=== PATIENT | male | born 1965 | race Caucasian/White ===

== ENCOUNTER → 2016-09-25 | Emergency (ER) | payer MEDICARE, MEDICAID ==
[2012-11-04 09:24] VITALS: BMI 24.2
[~2016-09-25] MED LIST: BENADRYL25 M1 PO; EPITOL200 MG PO; LIBRIUM25 MG PO; MAGOX; PRILOSEC20 MG PO; TEGRETOL XR100 MG PO; TRIFLUOPERAZINE10 MG PO
== END | disposition home or self-care (01) ==
LOC: D.ER 11:09
DX: Z02.9 Encounter for administrative examinations, unspecified (principal)

== ENCOUNTER 2017-01-14 06:20 | Emergency (ER) | payer MEDICARE, MEDICAID ==
[2012-11-04 09:24] VITALS: BMI 24.2
[2017-01-14 06:51] LABS: BASOPHILS 0.9 % (0-2); HEMATOCRIT 36.5 % (42.0-54.0); HEMOGLOBIN 13.3 g/dL (13.5-17.5); IMMATURE GRANULOCYTES 0.3 % (0-5); LYMPHOCYTES 37.2 % (15-50); MCH 34.1 pg (26.0-34.0); MCHC 36.4 g/dL (31.0-37.0); MCV 93.6 fL (80.0-100.0); MEAN PLATELET VOLUME 8.8 fL (7.4-10.4); NEUTROPHILS 47.6 % (40-80); PLATELET COUNT 112 10x3/uL (130-400); RDW 17.6 % (11.5-14.5); WBC 3.5 10x3/uL (4.8-10.8)
[2017-01-14 07:15] LABS: ALBUMIN 3.5 g/dL (3.4-5.0); ANION GAP 16.8 mmol/L (8-16); BILIRUBIN - TOTAL 0.46 mg/dL (0.2-1.3); CALCIUM 8.4 mg/dL (8.5-10.1); CARBON DIOXIDE 22.5 mmol/L (21.0-32.0); CREATININE - SERUM 1.5 mg/dL (0.6-1.3); POTASSIUM - SERUM 3.3 mmol/L (3.5-5.1); PROTEIN - SERUM 7.1 g/dL (6.4-8.2)
[2017-01-14 07:55] LABS: APPEARANCE CLEAR (CLEAR); BACTERIA FEW /hpf (NONE SEEN); BILIRUBIN NEGATIVE (NEGATIVE); COLOR STRAW (YELLOW); EPITHELIAL CELLS RARE /hpf (0-5); GLUCOSE NEGATIVE (NEGATIVE); KETONE NEGATIVE (NEGATIVE); LEUKOCYTE ESTERASE TRACE (NEGATIVE); NITRITE NEGATIVE (NEGATIVE); PROTEIN NEGATIVE (NEGATIVE); UROBILINOGEN NORMAL (NORMAL); WHITE CELLS - URINE RARE /hpf (0-5)
== END 2017-01-14 14:18 | disposition home or self-care (01) ==
LOC: D.ER 06:20
PROVIDERS: Emergency Medicine
DX: R10.9 Unspecified abdominal pain (principal); R11.10 Vomiting, unspecified; R19.7 Diarrhea, unspecified; B19.20 Unspecified viral hepatitis C without hepatic coma

== ENCOUNTER 2017-02-04 07:03 | Emergency (ER) | payer MEDICARE, MEDICAID ==
[2012-11-04 09:24] VITALS: BMI 24.2
[2017-02-04 08:42] LABS: BASOPHILS 1.1 % (0-2); EOSINOPHILS 7.5 % (0-7); HEMATOCRIT 34.7 % (42.0-54.0); HEMOGLOBIN 12.1 g/dL (13.5-17.5); IMMATURE GRANULOCYTES 0.4 % (0-5); LYMPHOCYTES 29.2 % (15-50); MCH 34.8 pg (26.0-34.0); MCHC 34.9 g/dL (31.0-37.0); MCV 99.7 fL (80.0-100.0); MEAN PLATELET VOLUME 9.2 fL (7.4-10.4); MONOCYTES 13.5 % (2-11); NEUTROPHILS 48.3 % (40-80); PLATELET COUNT 106 10x3/uL (130-400); RBC 3.48 10x6/uL (4.20-6.10); RDW 18.5 % (11.5-14.5); WBC 2.8 10x3/uL (4.8-10.8)
[2017-02-04 08:50] LABS: APPEARANCE HAZY (CLEAR); BACTERIA FEW /hpf (NONE SEEN); BILIRUBIN NEGATIVE (NEGATIVE); COLOR YELLOW (YELLOW); EPITHELIAL CELLS 0-5 /hpf (0-5); GLUCOSE NEGATIVE (NEGATIVE); KETONE NEGATIVE (NEGATIVE); LEUKOCYTE ESTERASE TRACE (NEGATIVE); MUCUS >1+ /lpf (NONE SEEN); NITRITE NEGATIVE (NEGATIVE); PROTEIN NEGATIVE (NEGATIVE); SPECIFIC GRAVITY 1.015 (1.005-1.020); UROBILINOGEN NORMAL (NORMAL); WHITE CELLS - URINE 0-5 /hpf (0-5)
[2017-02-04 09:18] LABS: ALBUMIN 3.9 g/dL (3.4-5.0); ANION GAP 11.4 mmol/L (8-16); BILIRUBIN - TOTAL 0.8 mg/dL (0.2-1.3); CALCIUM 8.5 mg/dL (8.5-10.1); CARBON DIOXIDE 26.4 mmol/L (21.0-32.0); CREATININE - SERUM 1.2 mg/dL (0.6-1.3); POTASSIUM - SERUM 3.8 mmol/L (3.5-5.1); PROTEIN - SERUM 6.7 g/dL (6.4-8.2)
== END 2017-02-04 07:06 | disposition home or self-care (01) ==
LOC: D.ER 07:03
PROVIDERS: Family Medicine
DX: R31.9 Hematuria, unspecified (principal); R10.9 Unspecified abdominal pain; D64.9 Anemia, unspecified; B19.20 Unspecified viral hepatitis C without hepatic coma

== ENCOUNTER 2017-03-05 02:30 | Emergency (ER) | payer MEDICARE, MEDICAID ==
[2012-11-04 09:24] VITALS: BMI 24.2
[2017-03-05 03:05] LABS: APPEARANCE CLEAR (CLEAR); BILIRUBIN NEGATIVE (NEGATIVE); COLOR YELLOW (YELLOW); GLUCOSE NEGATIVE (NEGATIVE); KETONE NEGATIVE (NEGATIVE); NITRITE NEGATIVE (NEGATIVE); PROTEIN NEGATIVE (NEGATIVE); UROBILINOGEN NORMAL (NORMAL)
[2017-03-05 04:31] LABS: EOSINOPHILS 6.6 % (0-7); HEMATOCRIT 31.8 % (42.0-54.0); HEMOGLOBIN 11.4 g/dL (13.5-17.5); IMMATURE GRANULOCYTES 0.5 % (0-5); LYMPHOCYTES 39.6 % (15-50); MCH 36.4 pg (26.0-34.0); MCHC 35.8 g/dL (31.0-37.0); MCV 101.6 fL (80.0-100.0); MEAN PLATELET VOLUME 9.9 fL (7.4-10.4); NEUTROPHILS 41.3 % (40-80); RBC 3.13 10x6/uL (4.20-6.10); RDW 17.7 % (11.5-14.5); WBC 3.9 10x3/uL (4.8-10.8)
[2017-03-05 04:32] LABS: PLATELET COUNT 149 10x3/uL (130-400)
[2017-03-05 04:37] LABS: ALBUMIN 3.5 g/dL (3.4-5.0); ANION GAP 13.6 mmol/L (8-16); BILIRUBIN - TOTAL 0.45 mg/dL (0.2-1.3); CALCIUM 8.8 mg/dL (8.5-10.1); CARBON DIOXIDE 22.4 mmol/L (21.0-32.0); CREATININE - SERUM 1.4 mg/dL (0.6-1.3); PROTEIN - SERUM 6.8 g/dL (6.4-8.2)
[2017-03-06 11:11] LABS: FOLATE (FOLIC ACID) - SERUM <2.0 ng/mL (>3.0)
== END 2017-03-05 08:35 | disposition home or self-care (01) ==
LOC: D.ER 02:30
PROVIDERS: Emergency Medicine
DX: R11.2 Nausea with vomiting, unspecified (principal); D53.9 Nutritional anemia, unspecified; K52.9 Noninfective gastroenteritis and colitis, unspecified

== ENCOUNTER 2017-04-01 05:40 | Emergency (ER) | payer MEDICARE, MEDICAID ==
[2012-11-04 09:24] VITALS: BMI 24.2
[2017-04-01 06:22] LABS: BASOPHILS 0.5 % (0-2); EOSINOPHILS 6.4 % (0-7); HEMATOCRIT 36.7 % (42.0-54.0); HEMOGLOBIN 12.9 g/dL (13.5-17.5); IMMATURE GRANULOCYTES 0.3 % (0-5); LYMPHOCYTES 38.6 % (15-50); MCH 34.9 pg (26.0-34.0); MCHC 35.1 g/dL (31.0-37.0); MCV 99.2 fL (80.0-100.0); MEAN PLATELET VOLUME 10.7 fL (7.4-10.4); MONOCYTES 11.7 % (2-11); NEUTROPHILS 42.5 % (40-80); PLATELET COUNT 129 10x3/uL (130-400); RDW 14.6 % (11.5-14.5); WBC 3.8 10x3/uL (4.8-10.8)
[2017-04-01 07:21] LABS: ALBUMIN 3.3 g/dL (3.4-5.0); ANION GAP 16.2 mmol/L (8-16); BILIRUBIN - TOTAL 0.4 mg/dL (0.2-1.3); CALCIUM 8.5 mg/dL (8.5-10.1); CARBON DIOXIDE 21.2 mmol/L (21.0-32.0); CREATININE - SERUM 1.3 mg/dL (0.6-1.3); POTASSIUM - SERUM 3.4 mmol/L (3.5-5.1); PROTEIN - SERUM 6.6 g/dL (6.4-8.2)
== END 2017-04-01 10:09 | disposition home or self-care (01) ==
LOC: D.ER 05:40
PROVIDERS: Emergency Medicine
DX: R11.10 Vomiting, unspecified (principal); R19.7 Diarrhea, unspecified; R86.0 Abnormal level of enzymes in specimens from male genital organs; D61.818 Other pancytopenia; B19.20 Unspecified viral hepatitis C without hepatic coma

== ENCOUNTER 2017-04-11 11:36 | Emergency (ER) | payer MEDICARE, MEDICAID ==
[2012-11-04 09:24] VITALS: BMI 24.2
[2017-04-11 12:12] LABS: EOSINOPHILS 3.8 % (0-7); HEMATOCRIT 36.1 % (42.0-54.0); HEMOGLOBIN 12.8 g/dL (13.5-17.5); IMMATURE GRANULOCYTES 0.3 % (0-5); LYMPHOCYTES 31.7 % (15-50); MCH 34.5 pg (26.0-34.0); MCHC 35.5 g/dL (31.0-37.0); MCV 97.3 fL (80.0-100.0); MEAN PLATELET VOLUME 10.4 fL (7.4-10.4); MONOCYTES 8.5 % (2-11); NEUTROPHILS 54.7 % (40-80); PLATELET COUNT 140 10x3/uL (130-400); RBC 3.71 10x6/uL (4.20-6.10); RDW 14.2 % (11.5-14.5)
[2017-04-11 12:34] LABS: APPEARANCE CLEAR (CLEAR); BILIRUBIN NEGATIVE (NEGATIVE); COLOR YELLOW (YELLOW); GLUCOSE NEGATIVE (NEGATIVE); KETONE NEGATIVE (NEGATIVE); NITRITE NEGATIVE (NEGATIVE); PROTEIN NEGATIVE (NEGATIVE); UROBILINOGEN NORMAL (NORMAL)
[2017-04-11 12:38] LABS: ALBUMIN 3.6 g/dL (3.4-5.0); ANION GAP 16.6 mmol/L (8-16); BILIRUBIN - TOTAL 0.31 mg/dL (0.2-1.3); CALCIUM 8.6 mg/dL (8.5-10.1); CARBON DIOXIDE 20.1 mmol/L (21.0-32.0); CREATININE - SERUM 1.3 mg/dL (0.6-1.3); POTASSIUM - SERUM 3.7 mmol/L (3.5-5.1)
== END 2017-04-11 14:01 | disposition home or self-care (01) ==
LOC: D.ER 11:36
PROVIDERS: Emergency Medicine; Nurse Practitioner Family
DX: R10.9 Unspecified abdominal pain (principal); K21.9 Gastro-esophageal reflux disease without esophagitis

== ENCOUNTER 2017-09-10 06:29 | Emergency (ER) | payer MEDICARE, MEDICAID ==
[2012-11-04 09:24] VITALS: BMI 24.2
[2017-09-10 06:59] LABS: BASOPHILS 0.9 % (0-2); EOSINOPHILS 5.6 % (0-7); HEMATOCRIT 40.4 % (42.0-54.0); HEMOGLOBIN 14.6 g/dL (13.5-17.5); IMMATURE GRANULOCYTES 0.2 % (0-5); LYMPHOCYTES 37.1 % (15-50); MCH 31.8 pg (26.0-34.0); MCHC 36.1 g/dL (31.0-37.0); MEAN PLATELET VOLUME 10.5 fL (7.4-10.4); MONOCYTES 8.9 % (2-11); NEUTROPHILS 47.3 % (40-80); PLATELET COUNT 124 10x3/uL (130-400); RBC 4.59 10x6/uL (4.20-6.10); RDW 14.3 % (11.5-14.5); WBC 4.3 10x3/uL (4.8-10.8)
[2017-09-10 07:04] LABS: APPEARANCE CLEAR (CLEAR); COLOR YELLOW (YELLOW); SPECIFIC GRAVITY 1.015 (1.005-1.020)
[2017-09-10 07:05] LABS: BACTERIA FEW /hpf (NONE SEEN); BILIRUBIN NEGATIVE (NEGATIVE); EPITHELIAL CELLS OCC /hpf (0-5); GLUCOSE NEGATIVE (NEGATIVE); KETONE NEGATIVE (NEGATIVE); MUCUS <1+ /lpf (NONE SEEN); NITRITE NEGATIVE (NEGATIVE); PROTEIN NEGATIVE (NEGATIVE); RED CELLS - URINE RARE /hpf (0-5); UROBILINOGEN NORMAL (NORMAL); WHITE CELLS - URINE 0-5 /hpf (0-5)
[2017-09-10 07:14] LABS: ALBUMIN 3.8 g/dL (3.4-5.0); ANION GAP 19.3 mmol/L (8-16); BILIRUBIN - TOTAL 0.6 mg/dL (0.2-1.3); CALCIUM 8.8 mg/dL (8.5-10.1); CARBON DIOXIDE 16.3 mmol/L (21.0-32.0); CREATININE - SERUM 1.5 mg/dL (0.6-1.3); POTASSIUM - SERUM 3.6 mmol/L (3.5-5.1); PROTEIN - SERUM 7.5 g/dL (6.4-8.2)
== END 2017-09-10 14:01 | disposition home or self-care (01) ==
LOC: D.ER 06:29
PROVIDERS: Emergency Medicine
DX: R10.9 Unspecified abdominal pain (principal); K21.9 Gastro-esophageal reflux disease without esophagitis; B19.20 Unspecified viral hepatitis C without hepatic coma

== ENCOUNTER 2017-10-08 03:41 | Observation (INO) | payer MEDICARE, MEDICAID ==
[~2017-10-08] VITALS: Ht 182.9 cm; Wt 102.1 kg
--- NOTE | ~2017-10-08 | HP ---
PATIENT: KENNY JONES MEDICAL RECORD: [id number] ACCOUNT: [id number] LOCATION:[address] : 67 ADMISSION DATE: 10/08/17 HISTORY AND PHYSICAL EXAMINATION HISTORY OF PRESENT ILLNESS: A 52-year-old gentleman with no known history of coronary artery disease. He has a history of hyperlipidemia, bipolar disorder, hep C. He has been having intermittent chest pain over the past 2-3 weeks, episode of rest symptomology, pressure, tightness, radiating to jaw, with diaphoresis, some nausea. We are asked to see him concerning his cardiovascular status. PAST MEDICAL HISTORY: 1. History of bipolar disorder. 2. Gastroesophageal reflux disease. ALLERGIES: None known. SOCIAL HISTORY: He is a nonsmoker. No set exercise program. He takes care of all of his ADLs. REVIEW OF SYSTEMS: The patient reports easy bruising but reports no swollen glands. The patient reports no fever, no night sweats, no significant weight gain, no significant weight loss. No significant exercise tolerance. The patient reports no dry eyes, no irritation, no vision change. Patient reports no difficulty hearing and no ear pain. Patient reports no frequent nose bleeds or nose and sinus problems. Patient reports on arm pain on exertion. No shortness of breath while lying down. No history of heart murmur. Patient reports no cough, no wheezing or coughing up blood. Patient reports no abdominal pain, no vomiting. Normal appetite. No diarrhea and not vomiting blood. No nausea and no constipation. Patient reports no incontinence. No difficulty urinating. No hematuria. No increased frequency. Patient reports no muscle aches. No weakness, no arthralgias, no back pain. No swelling of the extremities. Patient reports no abnormal mole, no jaundice, no rashes. Reports no loss of consciousness. No weakness and no numbness. No seizures, dizziness, or headaches. The patient reports no depression, no sleep disturbance, feeling safe in a relationship and no alcohol abuse. Patient reports on fatigue. Reports no runny nose or sinus pressure. No itching, no hives, and no frequent sneezing. MEDICATIONS: Include Librium 25 q.i.d., Tegretol 100 q.12, Epitol 200 t.i.d., Stelazine 10 b.i.d. PHYSICAL EXAMINATION: GENERAL: Pleasant gentleman in no acute distress, appears stated age. VITAL SIGNS: Blood pressure 115/77, pulse 61 and regular. HEENT: Normocephalic, atraumatic. NECK: No JVD or bruit. HEART: Regular. LUNGS: Banuelos clear. ABDOMEN: Soft, nontender. EXTREMITIES: Pulses 2+ with no edema. DIAGNOSTIC DATA: ECG without acute change. HISTORY AND PHYSICAL [id number] KENNY JONES IMPRESSION: Acute coronary syndrome. We will plan for diagnostic angiography, intervention based on the above. TRANSINT:[id number] Voice Confirmation ID: [id number] DOCUMENT ID: [id number] SHAHNAZ NGUYEN MD at 0826 CC: [id number] DICTATION DATE: 10/08/17809 HOME ECONOMIST: 10/08/17 0946 DIS IN 10/09/17 [place] [address] [place] [address]
--- NOTE | ~2017-10-08 | OP ---
PATIENT NAME: KENNY JONES MEDICAL RECORD: [id number] :67 LOCATION:D.M2 D.2103 ADMISSION DATE:10/08/17 SURGEON: STAN PEREZ MD DATE OF OPERATION: 10/08/2017 PROCEDURES: 1. Left heart catheterization. 2. Selective coronary angiography. 3. Left ventriculogram. INDICATION: Chest pain compatible with angina and coronary artery disease. PROCEDURE IN DETAIL: After informed consent was obtained and after a detailed explanation of risks, benefits as well as alternative therapies, the patient elected to proceed with angiogram and heart catheterization. The right femoral area was prepped and draped in normal sterile fashion. Right femoral artery was cannulated via modified Seldinger technique with placement of 6-New Zealander sheath. All catheters exchanged through this sheath. FINDINGS: The left ventriculogram was performed in standard 30-degree JANSEN view, reveals good cardiac wall motion throughout all segments. Overall ejection fraction estimated 60%. SELECTIVE CORONARY ANGIOGRAPHY: Left main, left anterior descending, left circumflex, right coronary artery are all smooth-walled vessels with no angiographic evidence of coronary artery disease. OVERALL IMPRESSION: 1. No angiographic evidence of coronary artery disease. 2. Normal left heart pressures. 3. Normal left ventricular systolic function. Chest pain is noncardiac in etiology. No further cardiac workup needs to be ascertained. TRANSINT:[id number] Voice Confirmation ID: [id number] DOCUMENT ID: [id number] STAN PEREZ MD at 1403 CC: [id number] DICTATION DATE: 10/08/17 1635 GIFT PACKER: 10/08/17 1809 DIS IN 10/09/17 [place] [address] [place] [address]
--- NOTE | ~2017-10-08 | HEMODYNAMI ---
PATIENT:KENNY JONES MEDICAL RECORD: [id number] : 67 [id number] ADMISSION DATE: 10/08/17 Generatedon:10/08/201716:34 Patient name: KENNY JONES Patient #: [id number] SSN: : Date of study: 10/08/2017 Page: Of Hemodynamic Procedure Report Patient Data Patient Demographics Procedure consent was obtained First Name: KENNY Gender: Male Last Name: ROBERT : 1965 Middle Initial: TIM Age: 52 year(s) Patient #: [id number] Race: Additional ID: [id number] Contact details Address: [address] [place] [address] State: [place] City: [place] Zip code: [address] Admission Admission Data Admission Date: 10/08/2017 Admission Time: 5:54 Room #: D.2103 Procedure Procedure Types Cath Procedure Diagnostic Procedure LHC LHC w/Coronaries Procedure Description Procedure Date Procedure Date: 10/08/2017 Procedure Start Time: 16:26 Procedure End Time: 16:33 Procedure Staff Name Function Edenilson Mckeon MD Performing Physician Deirdre Arora RT Monitor Tracey Abraham RT Scrub Lazaro Delaney RN Nurse Procedure Data Cath Procedure Fluoroscopy Diagnostic fluoroscopy Total fluoroscopy Time: 0.8 time: 0.8 min min Diagnostic fluoroscopy Total fluoroscopy dose: 227 dose: 227 mGy mGy Contrast Material Contrast Material Type Amount (ml) Isovue 300 28 Entry Location Entry Primary Successful Side Size Upsize Upsize Entry Closure Succes sful Closure Location (Fr) 1 (Fr) 2 (Fr) Remarks Device Remarks Femoral Right 5 Fr Exoseal artery Estimated blood loss: 5 ml Diagnostic catheters Device Type Used For End Catheter Placement MULTIPACK Pigtail 5 Fr LV Angiography catheter MULTIPACK JL 4.0 5Fr Left Coronary catheter Angiography MULTIPACK 3DRC 5Fr Right Coronary catheter Angiography Procedure Complications No complications Procedure Medications Medication Administration Route Dosage Oxygen etCO2 Nasal cannula 2 l/min Heparin Flush Bag added to field 2 bags (1000units/500ml NS) 0.9% NaCl I.V. 100 ml/hr Fentanyl I.V. 50 mcg Versed I.V. 1 mg Fentanyl I.V. 50 mcg Versed I.V. 1 mg Fentanyl I.V. 50 mcg Versed I.V. 1 mg Fentanyl I.V. 50 mcg Versed I.V. 1 mg Fentanyl I.V. 50 mcg Versed I.V. 1 mg Fentanyl I.V. 50 mcg Versed I.V. 1 mg Hemodynamics Rest Heart Rate: 58 (bpm) Snapshots Pre Cath Intra NCS Post Cath Vital Signs Time Heart Resp SPO2 etCO2 NIBP Rhythm Pain Sedation Rate (ipm) (%) (mmHg) (mmHg) Status Level (bpm) 15:51:47 59 19 98 10.4 105/74(89) NSR 0 (11) 10(A) , No pain 15:55:49 56 17 97 9.6 108/85(93) NSR 0 (11) 10(A) , No pain 15:59:55 57 17 98 11.1 101/67(82) NSR 0 (11) 10(A) , No pain 16:03:57 56 16 98 13.4 103/76(88) NSR 0 (11) 10(A) , No pain 16:08:00 54 16 100 13.4 106/71(87) NSR 0 (11) 10(A) , No pain 16:12:06 52 17 98 14.9 106/68(82) NSR 0 (11) 10(A) , No pain 16:16:08 51 15 96 12.6 106/74(95) NSR 0 (11) 10(A) , No pain 16:20:09 43 17 98 17.1 118/82(93) NSR 0 (11) 10(A) , No pain 16:24:19 43 17 97 18.6 111/73(86) NSR 0 (11) 10(A) , No pain 16:28:29 45 17 97 29.8 106/72(87) NSR 0 (11) 10(A) , No pain 16:32:35 52 17 94 36.5 107/71(84) NSR 0 (11) 10(A) , No pain Medications Time Medication Route Dose Verified Delivered Reason Notes Effe ctiveness by by 16:05:57 Oxygen etCO2 2 Edenilson Willis Per Nasal l/min Linda Delaney RN physician cannula 16:06:04 Heparin Flush added 2 Edenilson Willis used for Bag to bags Linda Delaney land management forester (1000units/500ml field NS) 16:06:12 0.9% NaCl I.V. 100 Edenilson Lazaroy Per ml/hr Linda Delaney RN physician 16:18:51 Fentanyl I.V. 50 Edenilson Lazaro for leila Delaney RN sedation 16:18:57 Versed I.V. 1 mg Edenilson Lazaroy for Linda Delaney RN sedation 16:21:13 Fentanyl I.V. 50 Edenilson Lazaro for leila Delaney RN sedation 16:21:17 Versed I.V. 1 mg Edenilson Lazaro for Linda Delaney RN sedation 16:24:02 Fentanyl I.V. 50 Edenilson Lazaro for leila Delaney RN sedation 16:24:05 Versed I.V. 1 mg Edenilson Lazaroy for Linda Delaney RN sedation 16:25:05 Fentanyl I.V. 50 Edenilson Lazaro for leila Delaney RN sedation 16:25:08 Versed I.V. 1 mg Edenilson Lazaro for Linda Delaney RN sedation 16:27:01 Fentanyl I.V. 50 Edenilson Lazaro for leila Delaney RN sedation 16:27:03 Versed I.V. 1 mg Edenilson Lazaroy for Linda Delaney RN sedation 16:29:28 Fentanyl I.V. 50 Edenilson Lazaro for leila Delaney RN sedation 16:29:31 Versed I.V. 1 mg Edenilson Lazaro for Linda Delaney RN sedation Procedure Log Time Note 15:06:28 Informed consent obtained and on chart 15:06:32 Diagnostic Cath Status : Elective 15:06:58 Tracey Abraham RT(R) sent for patient. Start room use. 15:06:59 Time tracking: Regular hours (M-F 7:00 - 5:00) 15:07:04 Plan of Care:Hemodynamics will remain stable., Cardiac rhythm will remain stable., Comfort level will be maintained., Respiratory function will remain adequate., Patient/ family verbilizes understanding of procedure., Procedure tolerated without complication., Recovers from procedure without complications.. 15:50:39 Patient received from Med II to CCL 2 Alert and oriented. Tansferred to table in Supine position. 15:50:40 Warm blankets applied, and genesis hugger turned on for patient comfort. 15:50:41 Correct patient and procedure confirmed by team. 15:50:41 ECG and BP/O2 sat monitors applied to patient. 15:50:42 Vital chart was started 15:50:43 Baseline sample Acquired. 15:50:46 Rhythm: sinus rhythm 15:50:48 Full Disclosure recording started 15:50:58 H&P Date Dictated: 10/08/2017 New H&P dictated by physician.. 15:50:59 Pre-procedure instructions explained to patient. 15:51:00 Pre-op teaching completed and patient verbalized understanding. 15:51:01 Family in waiting room. 15:51:03 Patient NPO since Midnight. 15:51:04 Is the patient allergic to Iodine/contrast media? No. 15:51:05 Was the patient premedicated? No 15:51:10 Is patient on blood thinner?Yes 15:51:13 ACC The patient was administered the following blood thiners within the last 24 hours: Xarelto 15:51:16 Patient diabetic? No. 15:51:21 Previous problem with sedation/anesthesia? No ? 15:51:24 Snore? Yes 15:51:25 Sleep apnea? No 15:51:26 Deviated septum? No 15:51:26 Opens mouth fully? Yes 15:51:27 Sticks out tongue? Yes 15:51:54 Airway obstruction? Yes trouble breathing 15:52:01 Dentures? Yes in tight 16:00:56 Pre procedure: right dorsailis pedis pulse 2+ Normal; easily identifiable; not easily obliterated 16:00:58 Pre procedure: left dorsailis pedis pulse 2+ Normal; easily identifiable; not easily obliterated 16:01:01 Patient pain scale 0/10 ?. 16:01:07 IV patent on arrival in left forearm with 0.9% NaCl at [facility]. 16:01:09 Lab results completed and on chart. 16:01:14 Right groin area was prepped with chlora-prep and draped in sterile fashion 16:01:15 Alarms reviewed by R. N. 16:01:15 Sharps counted by scrub and verified by R.N. 16:02:02 Zero performed for pressure channel P1 16:05:57 Oxygen 2 l/min etCO2 Nasal cannula was administered by Lazaro Delaney RN; Per physician; 16:06:04 Heparin Flush Bag (1000units/500ml NS) 2 bags added to field was administered by Lazaro Delaney RN; used for procedure; 16:06:12 0.9% NaCl 100 ml/hr I.V. was administered by Lazaro Delaney RN; Per physician; 16:18:26 Physician arrived 16:18:26 --------ALL STOP TIME OUT------ 16:18:27 Final Timeout: patient, procedure, and site verified with staff and physician. All members of the team are in agreement. 16:18:31 Right groin site verified by team. 16:18:34 Physical assessment completed. ASA score P 2 - A patient with mild systemic disease as per Edenilson Mckeon MD. 16:18:38 Sedation plan: IV Moderate Sedation Medication:Versed, Fentanyl 16:18:45 Use device set Femoral Dx 16:18:46 ACIST Syringe (75619) opened to sterile field. 16:18:46 Bag Decanter (2002) opened to sterile field. 16:18:47 Medline Cath Pack ([id number]) opened to sterile field. 16:18:47 DIAGNOSTIC WIRE .035 260cm J wire (558272) opened to sterile field. 16:18:48 ACIST Hand Control (24400) opened to sterile field. 16:18:49 ACIST Manifold (68208) opened to sterile field. 16:18:49 DIAGNOSTIC Multipack 5Fr catheter set (RT3573) opened to sterile field. 16:18:50 Tegaderm 4 x 4 (1626W) opened to sterile field. 16:18:51 Fentanyl 50 mcg I.V. was administered by Lazaro Delaney RN; for sedation; 16:18:51 SHEATH Prelude 5Fr 0.035 (UDE-9Q-26-035) opened to sterile field. 16:18:57 Versed 1 mg I.V. was administered by Lazaro Delaney RN; for sedation; 16:19:36 Procedure started. 16:21:13 Fentanyl 50 mcg I.V. was administered by Lazaro Delaney RN; for sedation; 16:21:17 Versed 1 mg I.V. was administered by Lazaro Delaney RN; for sedation; 16:24:02 Fentanyl 50 mcg I.V. was administered by Lazaro Delaney RN; for sedation; 16:24:05 Versed 1 mg I.V. was administered by Lazaro Delaney RN; for sedation; 16:25:05 Fentanyl 50 mcg I.V. was administered by Lazaro Delaney RN; for sedation; 16:25:08 Versed 1 mg I.V. was administered by Lazaro Delaney RN; for sedation; 16::25 Local anesthetic to right femoral artery with Lidocaine 2% by Edenilson Mckeon MD.INITIAL ACCESS ONLY 16:26:34 A 5 Fr sheath was inserted into the Right Femoral artery 16:27:01 Fentanyl 50 mcg I.V. was administered by Lazaro Delaney RN; for sedation; 16:27:03 Versed 1 mg I.V. was administered by Lazaro Delaney RN; for sedation; 16:27:10 A MULTIPACK Pigtail 5 Fr catheter was advanced over the wire and used for LV Angiography. 16:28:01 LV hemodynamics recorded. 16:28:03 LV gram done using JANSEN 16:28:05 Injector settings: Ml/sec: 5, Volume: 15, 16:28:13 EF : 60 % 16:28:21 Catheter removed. 16:28:49 A MULTIPACK JL 4.0 5Fr catheter was advanced over the wire and used for Left Coronary Angiography. 16:29:12 LCA angiography performed. 16:29:15 Injector settings: Ml/sec: 3, Volume: 6, 16:29:28 Fentanyl 50 mcg I.V. was administered by Lazaro Delaney RN; for sedation; 16:29:31 Versed 1 mg I.V. was administered by Lazaro Delaney RN; for sedation; 16:29:39 Catheter removed. 16:29:46 A MULTIPACK 3DRC 5Fr catheter was advanced over the wire and used for Right Coronary Angiography. 16:30:00 RCA angiography performed. 16:30:03 Injector settings: Ml/sec: 3, Volume: 6, 16:30:09 Catheter removed. 16:30:11 EXOSEAL 5Fr (EX500) opened to sterile field. 16:30:21 Sheath removed intact; hemostasis achieved with Exoseal to the Right Femoral artery. 16:30:24 Procedure ended.(Physican Out) 16:31:55 Fluoroscopy time 00.80 minutes. 16:32:16 Fluoroscopy dose: 227 mGy 16:32:16 Flurop Dose total: 227 16:32:20 Contrast amount:Isovue 300 28ml. 16:32:23 Sharps counted by scrub and verified by R.N. 16:32:25 Insertion/operative site no bleeding no hematoma. 16:32:31 Post-op/insertion site Right Femoral artery dressed using a 4 x 4 and Tegaderm. 16:32:34 Post right femoral artery:stable 16:32:36 Post Procedure Pulses reassessed and unchanged 16:32:39 Post procedure rhythm: unchanged. 16:32:41 Estimated blood loss: 5 ml 16:32:43 Post procedure instruction explained to patient.Patient verbalizes understanding. 16:32:43 Patient needs reinforcement of post procedure teaching. 16:32:53 Procedure type changed to Cath procedure, Diagnostic procedure, LHC, LHC w/Coronaries 16:32:54 Procedure and supply charges have been captured, reviewed, submitted and are correct. 16:32:58 Procedure Complication : No complications 16:33:00 Vital chart was stopped 16:33:00 See physician's report for complete and final results. 16:33:05 Report given to [facility]. 16:33:07 Patient transfered to [facility] with Stretcher. 16:33:09 Procedure ended. 16:33:09 Full Disclosure recording stopped 16:33:14 End room use (Document Last) Device Usage Item Name Manufacture Quantity Catalog Number Hospital Part Current M inimal Lot# / Charge Number Stock Stock Serial# Code ACIST Syringe Acist 1 33705 117701 131350 170726 2 0 (45651) [employer] Bag Decanter Microtek 1 [id number] 44214 712749 5 () Medical Inc. Medline Cath Cardinal 1 [id number] 122762 09475 749275 5 ZeroVM [facility] ([id number]) DIAGNOSTIC WIRE [place] 1 577368 774005 913763 816140 3 0 .035 260cm J wire (773005) ACIST Hand Acist 1 21403 483542 341356 234634 5 Control (86614) [employer] ACIST Manifold Acist 1 61302 801760 261660 764798 5 (61470) [employer] DIAGNOSTIC Cardinal 1 SH2726 448386 31823 577735 3 0 Multipack 5Fr Health catheter set (CN7426) Tegaderm 4 x 4 3M 1 1626W 833602 002722 117955 5 (1626W) SHEATH Prelude Merit 1 [id number]-2Y-25-035 327391 111989 078243 5 5Fr 0.035 Medical ([id number]) MULTIPACK Cardinal 1 144833 5 Pigtail 5 Fr Health catheter MULTIPACK JL Cardinal 1 376334 5 4.0 5Fr Health catheter MULTIPACK 3DRC Cardinal 1 [id number] 5 5Fr catheter Health EXOSEAL 5Fr Cardinal 1 EX500 112068 248273 206029 1 0 (EX500) Health Signature Audit [place]se[place] Stage Time Signature Unsigned Intra-Procedure 10/08/2017 Deirdre Arora 4:34:51 PM RT(R) Signatures Monitor : Deirdre Arora RT Signature : Date : Time : [address] [address]
--- NOTE | ~2017-10-08 | DS ---
PATIENT:KENNY JONES :67 MEDICAL RECORD: [id number] DISCHARGE SUMMARY ADMISSION DATE: 10/08/17 DISCHARGE DATE: 10/09/17 DATE OF ADMISSION: 10/08/2017 DATE OF DISCHARGE: 10/09/2017 PROBLEM LIST: 1. Chest pain, noncardiac. 2. Bipolar disorder. 3. Gastroesophageal reflux disease. HOSPITAL COURSE: The patient admitted with chest pain, typical for unstable angina; however, was found to have normal coronaries via angiography. Discharged home in good condition. ACTIVITY: As tolerated. DIET: AHA diet. TRANSINT:[id number] Voice Confirmation ID: [id number] DOCUMENT ID: [id number] SHAHNAZ NGUYEN MD at 1114 CC: [id number] DICTATION DATE: 10/28/17 1346 ARTIST AND REPERTOIRE MANAGER: 10/28/17 1358 DIS IN 10/09/17 [place] [address] [place] [address]
[2017-10-08 04:09] LABS: BASOPHILS 1.1 % (0-2); EOSINOPHILS 4.8 % (0-7); HEMATOCRIT 39.2 % (42.0-54.0); HEMOGLOBIN 14.1 g/dL (13.5-17.5); IMMATURE GRANULOCYTES 0.2 % (0-5); LYMPHOCYTES 42.6 % (15-50); MCH 31.6 pg (26.0-34.0); MCV 87.9 fL (80.0-100.0); MEAN PLATELET VOLUME 10.3 fL (7.4-10.4); MONOCYTES 11.6 % (2-11); NEUTROPHILS 39.7 % (40-80); PLATELET COUNT 145 10x3/uL (130-400); RBC 4.46 10x6/uL (4.20-6.10); RDW 13.6 % (11.5-14.5); WBC 4.6 10x3/uL (4.8-10.8)
[2017-10-08 04:19] LABS: APTT 55.3 SECONDS (22.8-39.4); INR 1.2 (0.85-1.17); PROTIME 14.8 SECONDS (11.6-15.0)
[2017-10-08 04:20] LABS: APPEARANCE CLEAR (CLEAR); BILIRUBIN NEGATIVE (NEGATIVE); COLOR YELLOW (YELLOW); GLUCOSE NEGATIVE (NEGATIVE); KETONE NEGATIVE (NEGATIVE); NITRITE NEGATIVE (NEGATIVE); PROTEIN NEGATIVE (NEGATIVE); UROBILINOGEN NORMAL (NORMAL)
[2017-10-08 04:20] LABS: D-DIMER-QUANTITATIVE 0.73 ug/mLFEU (0.20-0.54)
[2017-10-08 04:24] LABS: ALBUMIN 3.5 g/dL (3.4-5.0); ALKALINE PHOSPHATASE 79 U/L (46-116); ALT (SGPT) 32 U/L (10-68); BILIRUBIN - TOTAL 0.48 mg/dL (0.2-1.3); CALC OSMOLALITY 272 mosm/kg (275-300); CALCIUM 8.6 mg/dL (8.5-10.1); CARBON DIOXIDE 22.3 mmol/L (21.0-32.0); CHLORIDE - SERUM 102 mmol/L (98-107); CREATININE - SERUM 1.4 mg/dL (0.6-1.3); GLUCOSE 100 mg/dL (74-106); POTASSIUM - SERUM 3.7 mmol/L (3.5-5.1); PROTEIN - SERUM 7.3 g/dL (6.4-8.2); SODIUM 137 mmol/L (136-145); UREA NITROGEN 9 mg/dL (7-18); eGFR NON AFRICAN AMERICAN 57 mL/min (90-120)
[2017-10-08 04:28] LABS: UDS - AMPHET NEGATIVE QUAL (NEGATIVE); UDS - BARB NEGATIVE QUAL (NEGATIVE); UDS - BENZO POSITIVE QUAL (NEGATIVE); UDS - COCAINE NEGATIVE QUAL (NEGATIVE); UDS - OPIATE POSITIVE QUAL (NEGATIVE); UDS - PCP NEGATIVE QUAL (NEGATIVE); UDS - THC NEGATIVE QUAL (NEGATIVE)
[2017-10-08 04:35] LABS: CHOL - HDL RATIO 6.7 ratio (2.3-4.9); CHOLESTEROL, TOTAL 208 mg/dL (0-200); CKMB 0.9 U/L (0.0-3.6); CREATINE KINASE 201 UL (21-232); HDL CHOLESTEROL 31 mg/dL (32-96); LDL CHOLESTEROL 124 mg/dL (0-100); LIPASE 258 U/L (73-393); PRO BNP 35 pg/mL (0-125); TRIGLYCERIDE 267 mg/dL (30-200)
[2017-10-08 04:38] LABS: TROPONIN-I < 0.017 ng/mL (0.000-0.060)
[2017-10-08 11:11] VITALS: BP 106/63
[2017-10-08 12:51] VITALS: BP 130/70; BMI 33.3
[2017-10-08 15:19] VITALS: BP 110/72
[2017-10-08 20:00] VITALS: BP 101/68
[2017-10-08 20:33] VITALS: BP 101/68
[2017-10-09] VITALS (8 sets, daily range): BP systolic 94–120; BP diastolic 59–79; Ht 182.9 cm; Wt 102.1 kg
== END 2017-10-09 20:03 | disposition home or self-care (01) ==
LOC: D.ER 03:41 → OBSVTIME 05:54 → D.EDHOLD 05:54 → D.M2 05:54 → D.EDHOLD 05:54 → D.M2 06:30
PROVIDERS: Family Medicine
DX: R07.89 Other chest pain (principal); K21.9 Gastro-esophageal reflux disease without esophagitis; F31.9 Bipolar disorder, unspecified

== ENCOUNTER 2017-10-11 10:05 | Emergency (ER) | payer MEDICARE, MEDICAID ==
[~2017-10-11] VITALS: Ht 182.9 cm; Wt 97.7 kg
[2017-10-11 10:09] VITALS: Ht 182.9 cm; Wt 97.7 kg
[2017-10-11 10:25] LABS: APPEARANCE CLEAR (CLEAR); BILIRUBIN NEGATIVE (NEGATIVE); COLOR YELLOW (YELLOW); GLUCOSE NEGATIVE (NEGATIVE); KETONE NEGATIVE (NEGATIVE); NITRITE NEGATIVE (NEGATIVE); PROTEIN NEGATIVE (NEGATIVE); SPECIFIC GRAVITY 1.015 (1.005-1.020); UROBILINOGEN NORMAL (NORMAL)
[2017-10-11 10:46] LABS: UDS - AMPHET NEGATIVE QUAL (NEGATIVE); UDS - BARB NEGATIVE QUAL (NEGATIVE); UDS - BENZO POSITIVE QUAL (NEGATIVE); UDS - COCAINE NEGATIVE QUAL (NEGATIVE); UDS - OPIATE POSITIVE QUAL (NEGATIVE); UDS - PCP NEGATIVE QUAL (NEGATIVE); UDS - THC NEGATIVE QUAL (NEGATIVE)
[2017-10-11 10:52] LABS: BASOPHILS 0.6 % (0-2); EOSINOPHILS 6.6 % (0-7); HEMOGLOBIN 13.7 g/dL (13.5-17.5); LYMPHOCYTES 31.9 % (15-50); MCH 31.7 pg (26.0-34.0); MCHC 35.1 g/dL (31.0-37.0); MCV 90.3 fL (80.0-100.0); MEAN PLATELET VOLUME 10.2 fL (7.4-10.4); MONOCYTES 8.2 % (2-11); NEUTROPHILS 52.7 % (40-80); PLATELET COUNT 113 10x3/uL (130-400); RBC 4.32 10x6/uL (4.20-6.10); RDW 13.6 % (11.5-14.5); WBC 3.2 10x3/uL (4.8-10.8)
[2017-10-11 11:02] LABS: INR 2.23 (0.85-1.17); PROTIME 24.1 SECONDS (11.6-15.0)
[2017-10-11 11:14] LABS: ALBUMIN 3.5 g/dL (3.4-5.0); ANION GAP 15.9 mmol/L (8-16); BILIRUBIN - TOTAL 0.59 mg/dL (0.2-1.3); CALCIUM 8.6 mg/dL (8.5-10.1); CARBON DIOXIDE 22.7 mmol/L (21.0-32.0); CREATININE - SERUM 1.6 mg/dL (0.6-1.3); POTASSIUM - SERUM 3.6 mmol/L (3.5-5.1); PROTEIN - SERUM 7.2 g/dL (6.4-8.2)
[2017-10-11] MEDS ORDERED: ZOFRAN4 MG PO (13:07)
[2017-10-11] MEDS ORDERED: MIRALAX527 GM PO (13:07)
[2017-10-11 14:33] VITALS: BP 111/77
== END 2017-10-11 14:40 | disposition home or self-care (01) ==
LOC: D.ER 10:05
PROVIDERS: Emergency Medicine
DX: R10.9 Unspecified abdominal pain (principal); M25.50 Pain in unspecified joint

== ENCOUNTER 2018-01-17 23:59 | Emergency (ER) | payer MEDICARE, MEDICAID ==
[~2018-01-17] VITALS: Ht 182.9 cm; Wt 95.3 kg
[~2018-01-17 23:59] MED LIST changes: +MIRALAX527 GM PO; +ZOFRAN4 MG PO
[2018-01-18 00:02] VITALS: Ht 182.9 cm; Wt 95.3 kg
[2018-01-18] MEDS ORDERED: WELLBUTRIN XL150 M1 PO (00:18)
[2018-01-18] MEDS ORDERED: BUSPAR 15 MG TA15 MG (00:19)
[2018-01-18] MEDS ORDERED: CELEXA20 MG (00:20)
[2018-01-18] MEDS ORDERED: ENULOSE10 G/15 ML PO (00:21)
[2018-01-18] MEDS ORDERED: ASACOL HD800 MG (00:21)
[2018-01-18] MEDS ORDERED: PROTONIX40 MG PO (00:22)
[2018-01-18] MEDS ORDERED: K-DUR20 MEQ PO (00:23)
[2018-01-18] MEDS ORDERED: PHENERGAN25 M1 PO (00:23)
[2018-01-18] MEDS ORDERED: CARAFATE1 G PO (00:24)
[2018-01-18] MEDS ORDERED: SEROQUEL XR300 MG PO (00:24)
[2018-01-18] MEDS ORDERED: XARELTO20 MG PO (00:24)
[2018-01-18] MEDS ORDERED: ULTRAM50 MG PO (00:25)
[2018-01-18] MEDS ORDERED: PEPCID20 MG PO (00:25)
[2018-01-18] MEDS ORDERED: FLOMAX0.4 MG PO (00:25)
[2018-01-18] MEDS ORDERED: ZOFRAN4 MG PO (00:26)
[2018-01-18] MEDS ORDERED: ZYPREXA10 MG PO (00:26)
[2018-01-18] MEDS ORDERED: OMEPRAZOLE40 MG PO (00:27)
[2018-01-18 00:38] LABS: BASOPHILS 0.6 % (0-2); EOSINOPHILS 6.1 % (0-7); HEMOGLOBIN 14.6 g/dL (13.5-17.5); IMMATURE GRANULOCYTES 0.2 % (0-5); LYMPHOCYTES 43.4 % (15-50); MCH 31.5 pg (26.0-34.0); MCHC 36.5 g/dL (31.0-37.0); MCV 86.4 fL (80.0-100.0); MONOCYTES 7.7 % (2-11); RBC 4.63 10x6/uL (4.20-6.10); RDW 14.2 % (11.5-14.5); WBC 4.8 10x3/uL (4.8-10.8)
[2018-01-18 00:40] LABS: APPEARANCE CLEAR (CLEAR); BILIRUBIN NEGATIVE (NEGATIVE); COLOR YELLOW (YELLOW); GLUCOSE NEGATIVE (NEGATIVE); KETONE NEGATIVE (NEGATIVE); NITRITE NEGATIVE (NEGATIVE); PROTEIN NEGATIVE (NEGATIVE); SPECIFIC GRAVITY 1.005 (1.005-1.020); UROBILINOGEN NORMAL (NORMAL)
[2018-01-18 00:40] LABS: PLATELET COUNT 149 10x3/uL (130-400)
[2018-01-18 00:47] LABS: UDS - AMPHET NEGATIVE QUAL (NEGATIVE); UDS - BARB NEGATIVE QUAL (NEGATIVE); UDS - BENZO POSITIVE QUAL (NEGATIVE); UDS - COCAINE NEGATIVE QUAL (NEGATIVE); UDS - OPIATE NEGATIVE QUAL (NEGATIVE); UDS - PCP NEGATIVE QUAL (NEGATIVE); UDS - THC NEGATIVE QUAL (NEGATIVE)
[2018-01-18 00:48] LABS: APTT 26.9 SECONDS (22.8-39.4); INR 1.13 (0.85-1.17); PROTIME 14.1 SECONDS (11.6-15.0)
[2018-01-18 00:52] LABS: ALBUMIN 3.7 g/dL (3.4-5.0); ALKALINE PHOSPHATASE 85 U/L (46-116); ALT (SGPT) 31 U/L (10-68); BILIRUBIN - TOTAL 0.62 mg/dL (0.2-1.3); CALC OSMOLALITY 277 mosm/kg (275-300); CALCIUM 8.4 mg/dL (8.5-10.1); CARBON DIOXIDE 23.3 mmol/L (21.0-32.0); CHLORIDE - SERUM 103 mmol/L (98-107); CREATININE - SERUM 1.5 mg/dL (0.6-1.3); POTASSIUM - SERUM 3.3 mmol/L (3.5-5.1); PROTEIN - SERUM 7.7 g/dL (6.4-8.2); SODIUM 141 mmol/L (136-145); UREA NITROGEN 5 mg/dL (7-18); eGFR NON AFRICAN AMERICAN 52 mL/min (90-120)
[2018-01-18 00:56] LABS: GLUCOSE 95 mg/dL (74-106)
[2018-01-18 01:05] LABS: AMYLASE - SERUM 125 U/L (25-115); CKMB 0.9 U/L (0.0-3.6); CREATINE KINASE 141 UL (21-232); LIPASE 304 U/L (73-393)
[2018-01-18 01:06] LABS: TROPONIN-I < 0.017 ng/mL (0.000-0.060)
[2018-01-18 04:58] LABS: CREATINE KINASE 138 UL (21-232)
[2018-01-18 05:10] LABS: TROPONIN-I < 0.017 ng/mL (0.000-0.060)
[2018-01-18 09:41] VITALS: BP 106/75
[2018-01-31] MEDS ORDERED: XANAX2 MG PO (12:27)
== END 2018-01-18 09:40 | disposition home or self-care (01) ==
LOC: D.ER 23:59
PROVIDERS: Family Medicine
DX: R07.9 Chest pain, unspecified (principal); F41.9 Anxiety disorder, unspecified; K29.71 Gastritis, unspecified, with bleeding; K92.1 Melena

== ENCOUNTER 2018-02-01 10:30 | Day surgery (SDC) | payer MEDICARE, MEDICAID ==
[2018-01-31 10:39] LABS: BASOPHILS 0.8 % (0-2); EOSINOPHILS 4.5 % (0-7); HEMATOCRIT 39.1 % (42.0-54.0); IMMATURE GRANULOCYTES 0.3 % (0-5); LYMPHOCYTES 30.1 % (15-50); MCH 31.4 pg (26.0-34.0); MCHC 35.8 g/dL (31.0-37.0); MCV 87.7 fL (80.0-100.0); MEAN PLATELET VOLUME 9.5 fL (7.4-10.4); MONOCYTES 7.8 % (2-11); NEUTROPHILS 56.5 % (40-80); PLATELET COUNT 132 10x3/uL (130-400); RBC 4.46 10x6/uL (4.20-6.10); RDW 14.7 % (11.5-14.5)
[2018-01-31 10:55] LABS: ALBUMIN 3.7 g/dL (3.4-5.0); ANION GAP 17.3 mmol/L (8-16); BILIRUBIN - TOTAL 0.41 mg/dL (0.2-1.3); CALCIUM 8.6 mg/dL (8.5-10.1); CARBON DIOXIDE 20.2 mmol/L (21.0-32.0); CREATININE - SERUM 1.4 mg/dL (0.6-1.3); POTASSIUM - SERUM 3.5 mmol/L (3.5-5.1); PROTEIN - SERUM 7.7 g/dL (6.4-8.2)
[2018-01-31 11:22] LABS: APTT 27.2 SECONDS (22.8-39.4); INR 1.14 (0.85-1.17); PROTIME 14.2 SECONDS (11.6-15.0)
[~2018-02-01] VITALS: Ht 182.9 cm; Wt 98.9 kg
--- NOTE | ~2018-02-01 | OP ---
PATIENT NAME: KENNY JONES MEDICAL RECORD: [id number] :67 LOCATION:D.OPS ADMISSION DATE: SURGEON: ANTONIO PIRES MD DATE OF OPERATION: 02/01/2018 PREOPERATIVE DIAGNOSES: 1. Chronic abdominal pain. 2. History of deep venous thrombosis. 3. Hepatitis C. 4. Arthritis. 5. Anxiety disorder. POSTOPERATIVE DIAGNOSES: 1. Chronic abdominal pain. 2. History of deep venous thrombosis. 3. Hepatitis C. 4. Arthritis. 5. Anxiety disorder. PROCEDURE: 1. Diagnostic laparoscopy. 2. Laparoscopic lysis of adhesions. 3. Liver biopsy. SURGEON: Antonio Pires MD TELEPHONE LINES REPAIRER: Manasa Sun APRN REPORT OF PROCEDURE: The patient's abdomen was prepped and draped in sterile fashion. A Veress needle was inserted in the left upper quadrant and the abdomen was insufflated. The 5-mm Visiport trocar was inserted in the left lateral abdomen. Once inside, I could see the Veress needle and there was no sign of any injury to bowel or surrounding structures. A 5-mm trocar was then placed in the epigastrium and a 11-mm trocar was placed in the left upper quadrant. The patient had some chronic adhesions to the anterior abdominal wall, mainly in the midline of the patient's omentum. These were teased down carefully with sharp or blunt dissection. Eventually, we got all of the adhesions down off of the midline and there were also noted to be some adhesions in the right lower quadrant anterior abdominal wall from a previous open appendectomy. Once these were all teased down, then we were able to run the small bowel from the terminal ileum back to the ligament of Treitz. There was no sign of any masses, lesions, ulcerations, inflammatory changes or dilatation. We then looked at the right side of the colon, which again looked normal in caliber. The patient had a surgically absent appendix with just a scant amount of adhesions present. These did not appear to be obstructing the bowel in any way and it was lying in an anatomical position. The transverse colon appeared to be normal with omentum lying over top of it. As we came down to the sigmoid colon, the sigmoid colon was tethered down with some dense adhesions from the appendix epiploica. These were taken down with sharp dissection and eventually we were able to mobilize the sigmoid colon and lay it in a more anatomic position. As we went down into the pelvis, there were some adhesions present to the anterior aspect of the rectum, but the rectum itself appeared to be in good anatomic position with no signs of any kinking of the tissues. There were no masses or lesions present. There were no inflammatory changes. At this point, we inspected the patient's liver which showed some evidence of some OPERATIVE REPORT [id number] JONES,KENNY DUMONT pre-cirrhotic changes with some early cobblestoning to the tissue. The patient's gallbladder appeared to be normal in size with no distention or inflammatory changes. A small skin incision was made in the right upper quadrant and we performed 4 punch biopsies of the patient's right liver using a Temo-Cut biopsy device. Any bleeding from the liver was then treated with electrocautery. At this point, we irrigated out the abdomen and did one last look and saw no evidence of bile leakage or bleeding. At this point, the 11-mm trocar site fascia was closed with interrupted 0 Vicryl using a Mich-Nupur suture passer device. The ports and insufflation were then removed and the skin incisions were infused with a total of 20 mL of 0.25% Marcaine with epinephrine and the skin incisions were closed with subcutaneous 5-0 Monocryl. COMPLICATIONS: None. CONDITION: Stable. ANESTHESIA: General endotracheal and local. BLOOD LOSS: Minimal. TRANSINT:[id number] Voice Confirmation ID: [id number] DOCUMENT ID: [id number] ANTONIO PIRES MD at 1714 CC: BRIAN TAN MD [id number] DICTATION DATE: 02/01/18 1457 LEGAL SUPPORT ANALYST: 02/01/18 1603 [facility] 02/01/18 [facility] [address] [place] [id number]
[~2018-02-01 10:30] MED LIST changes: +ASACOL HD800 MG; +BUSPAR 15 MG TA15 MG; +CARAFATE1 G PO; +CELEXA20 MG; +ENULOSE10 G/15 ML PO; +FLOMAX0.4 MG PO; +K-DUR20 MEQ PO; +OMEPRAZOLE40 MG PO; +PEPCID20 MG PO; +PHENERGAN25 M1 PO; +PROTONIX40 MG PO; +SEROQUEL XR300 MG PO; +ULTRAM50 MG PO; +WELLBUTRIN XL150 M1 PO; +XANAX2 MG PO; +XARELTO20 MG PO; +ZYPREXA10 MG PO
[2018-02-01 10:47] VITALS: BP 143/95; Ht 182.9 cm; Wt 98.9 kg
[2018-02-01] MEDS ORDERED: NORCO 10-325 TA1 TAB PO (14:51)
== END 2018-02-01 17:40 | disposition home or self-care (01) ==
LOC: D.OPS 10:30
PROVIDERS: Anesthesiology; Surgery
DX: G89.29 Other chronic pain (principal); K66.0 Peritoneal adhesions (postprocedural) (postinfection); B19.20 Unspecified viral hepatitis C without hepatic coma

== ENCOUNTER 2018-02-09 14:32 | Observation (INO) | payer MEDICARE, MEDICAID ==
[~2018-02-09] VITALS: Ht 182.9 cm; Wt 96.4 kg
[~2018-02-09 14:32] MED LIST changes: +NORCO 10-325 TA1 TAB PO
[2018-02-09 15:38] LABS: BASOPHILS 0.6 % (0-2); EOSINOPHILS 2.4 % (0-7); HEMATOCRIT 38.7 % (42.0-54.0); IMMATURE GRANULOCYTES 0.2 % (0-5); MCH 31.7 pg (26.0-34.0); MCHC 36.2 g/dL (31.0-37.0); MCV 87.6 fL (80.0-100.0); MEAN PLATELET VOLUME 9.5 fL (7.4-10.4); MONOCYTES 11.7 % (2-11); NEUTROPHILS 48.1 % (40-80); PLATELET COUNT 169 10x3/uL (130-400); RBC 4.42 10x6/uL (4.20-6.10); RDW 15.1 % (11.5-14.5); WBC 5.1 10x3/uL (4.8-10.8)
[2018-02-09 16:05] LABS: ALBUMIN 3.7 g/dL (3.4-5.0); ALKALINE PHOSPHATASE 79 U/L (46-116); AMYLASE - SERUM 14 U/L (25-115); BILIRUBIN - TOTAL 0.43 mg/dL (0.2-1.3); CALC OSMOLALITY 267 mosm/kg (275-300); CARBON DIOXIDE 18.8 mmol/L (21.0-32.0); CHLORIDE - SERUM 102 mmol/L (98-107); CKMB 0.2 U/L (0.0-3.6); CREATINE KINASE 39 UL (21-232); GLUCOSE 72 mg/dL (74-106); LIPASE 180 U/L (73-393); POTASSIUM - SERUM 3.5 mmol/L (3.5-5.1); PROTEIN - SERUM 7.3 g/dL (6.4-8.2); SODIUM 136 mmol/L (136-145); UREA NITROGEN 5 mg/dL (7-18)
[2018-02-09 16:26] LABS: ALT (SGPT) 29 U/L (10-68); CALCIUM 9.1 mg/dL (8.5-10.1); CREATININE - SERUM 1.4 mg/dL (0.6-1.3); eGFR NON AFRICAN AMERICAN 57 mL/min (90-120)
[2018-02-09 16:27] LABS: TROPONIN-I < 0.017 ng/mL (0.000-0.060)
[2018-02-09 16:44] LABS: INR 2.1 (0.85-1.17)
[2018-02-09 17:34] LABS: APPEARANCE CLEAR (CLEAR); BILIRUBIN NEGATIVE (NEGATIVE); COLOR YELLOW (YELLOW); GLUCOSE NEGATIVE (NEGATIVE); KETONE NEGATIVE (NEGATIVE); NITRITE NEGATIVE (NEGATIVE); PROTEIN NEGATIVE (NEGATIVE); UROBILINOGEN NORMAL (NORMAL)
[2018-02-10 01:41] VITALS: BP 101/66; BMI 28.8
[2018-02-10 06:20] VITALS: BP 105/67
[2018-02-10 06:34] LABS: BASOPHILS 0.8 % (0-2); EOSINOPHILS 6.5 % (0-7); HEMATOCRIT 37.5 % (42.0-54.0); HEMOGLOBIN 12.9 g/dL (13.5-17.5); IMMATURE GRANULOCYTES 0.5 % (0-5); MCH 31.2 pg (26.0-34.0); MCHC 34.4 g/dL (31.0-37.0); MEAN PLATELET VOLUME 9.5 fL (7.4-10.4); MONOCYTES 10.8 % (2-11); NEUTROPHILS 43.4 % (40-80); PLATELET COUNT 143 10x3/uL (130-400); RBC 4.14 10x6/uL (4.20-6.10); RDW 15.6 % (11.5-14.5)
[2018-02-10 06:39] LABS: MCV 90.6 fL (80.0-100.0)
[2018-02-10 06:42] LABS: ANION GAP 10.4 mmol/L (8-16); CALCIUM 8.2 mg/dL (8.5-10.1); CARBON DIOXIDE 29.6 mmol/L (21.0-32.0); CREATININE - SERUM 1.4 mg/dL (0.6-1.3)
[2018-02-10] MEDS ORDERED: ALDACTONE50 MG PO (08:05)
[2018-02-10 09:33] VITALS: BP 117/77
[2018-02-10 14:17] VITALS: BP 107/72
[2018-02-10 14:35] VITALS: Ht 182.9 cm; Wt 96.4 kg
[2018-02-10 15:00] VITALS: BP 118/78
[2018-02-10 17:36] LABS: UDS - AMPHET NEGATIVE QUAL (NEGATIVE); UDS - BARB NEGATIVE QUAL (NEGATIVE); UDS - BENZO POSITIVE QUAL (NEGATIVE); UDS - COCAINE NEGATIVE QUAL (NEGATIVE); UDS - OPIATE POSITIVE QUAL (NEGATIVE); UDS - PCP NEGATIVE QUAL (NEGATIVE); UDS - THC NEGATIVE QUAL (NEGATIVE)
[2018-02-10 20:00] VITALS: BP 116/72
[2018-02-11 04:00] VITALS: BP 116/85
[2018-02-11 06:22] LABS: ALBUMIN 3.3 g/dL (3.4-5.0); ANION GAP 9.8 mmol/L (8-16); BILIRUBIN - TOTAL 0.71 mg/dL (0.2-1.3); CALCIUM 7.9 mg/dL (8.5-10.1); CARBON DIOXIDE 28.3 mmol/L (21.0-32.0); CREATININE - SERUM 1.5 mg/dL (0.6-1.3); POTASSIUM - SERUM 4.1 mmol/L (3.5-5.1)
[2018-02-11 06:23] LABS: BASOPHILS 0.7 % (0-2); EOSINOPHILS 6.7 % (0-7); HEMATOCRIT 37.5 % (42.0-54.0); HEMOGLOBIN 13.1 g/dL (13.5-17.5); IMMATURE GRANULOCYTES 0.2 % (0-5); LYMPHOCYTES 26.9 % (15-50); MCH 31.3 pg (26.0-34.0); MCHC 34.9 g/dL (31.0-37.0); MCV 89.5 fL (80.0-100.0); MEAN PLATELET VOLUME 9.4 fL (7.4-10.4); MONOCYTES 9.2 % (2-11); NEUTROPHILS 56.3 % (40-80); PLATELET COUNT 143 10x3/uL (130-400); RBC 4.19 10x6/uL (4.20-6.10); RDW 15.2 % (11.5-14.5)
[2018-02-11 09:32] VITALS: BP 131/91
[2018-02-11 13:30] VITALS: BP 114/77
== END 2018-02-11 15:46 | disposition home or self-care (01) ==
LOC: D.ER 14:32 → D.MS 19:50 → OBSVTIME 02-10 19:10 → D.MS 02-11 15:46
PROVIDERS: Family Medicine
DX: R33.9 Retention of urine, unspecified (principal); R10.9 Unspecified abdominal pain; K59.00 Constipation, unspecified; K75.9 Inflammatory liver disease, unspecified; K21.9 Gastro-esophageal reflux disease without esophagitis; E86.0 Dehydration; N17.9 Acute kidney failure, unspecified; F31.30 Bipolar disorder, current episode depressed, mild or moderate severity, unspecified; F20.9 Schizophrenia, unspecified; F41.9 Anxiety disorder, unspecified; R11.2 Nausea with vomiting, unspecified

== ENCOUNTER → 2018-03-25 14:46 | Outpatient (CLI) | payer MEDICARE, MEDICAID ==
[2018-02-10 14:35] VITALS: BMI 28.8
[~2018-03-25 14:46] MED LIST changes: +ALDACTONE50 MG PO
== END | disposition home or self-care (01) ==
LOC: D.NM 02-16 14:00
DX: R10.9 Unspecified abdominal pain (principal); R11.2 Nausea with vomiting, unspecified

== ENCOUNTER 2018-04-02 03:09 | Emergency (ER) | payer MEDICARE, MEDICAID ==
[~2018-04-02] VITALS: Ht 182.9 cm; Wt 113.4 kg
[2018-04-02 03:49] VITALS: Ht 182.9 cm; Wt 113.4 kg
[2018-04-02 04:14] LABS: APPEARANCE CLEAR (CLEAR); BILIRUBIN NEGATIVE (NEGATIVE); COLOR YELLOW (YELLOW); GLUCOSE NEGATIVE (NEGATIVE); KETONE NEGATIVE (NEGATIVE); NITRITE NEGATIVE (NEGATIVE); PROTEIN NEGATIVE (NEGATIVE); UROBILINOGEN NORMAL (NORMAL)
[2018-04-02 04:22] LABS: UDS - AMPHET NEGATIVE QUAL (NEGATIVE); UDS - BARB NEGATIVE QUAL (NEGATIVE); UDS - BENZO NEGATIVE QUAL (NEGATIVE); UDS - COCAINE NEGATIVE QUAL (NEGATIVE); UDS - OPIATE NEGATIVE QUAL (NEGATIVE); UDS - PCP NEGATIVE QUAL (NEGATIVE); UDS - THC NEGATIVE QUAL (NEGATIVE)
[2018-04-02 04:31] LABS: BASOPHILS 0.5 % (0-2); HEMATOCRIT 40.8 % (42.0-54.0); IMMATURE GRANULOCYTES 0.3 % (0-5); LYMPHOCYTES 30.3 % (15-50); MCH 31.6 pg (26.0-34.0); MCHC 36.8 g/dL (31.0-37.0); MCV 85.9 fL (80.0-100.0); MONOCYTES 10.4 % (2-11); NEUTROPHILS 56.5 % (40-80); PLATELET COUNT 139 10x3/uL (130-400); RBC 4.75 10x6/uL (4.20-6.10); RDW 14.3 % (11.5-14.5); WBC 6.6 10x3/uL (4.8-10.8)
[2018-04-02 05:04] LABS: ALKALINE PHOSPHATASE 92 U/L (46-116); ALT (SGPT) 45 U/L (10-68); BILIRUBIN - TOTAL 0.45 mg/dL (0.2-1.3); CALC OSMOLALITY 272 mosm/kg (275-300); CALCIUM 8.8 mg/dL (8.5-10.1); CHLORIDE - SERUM 97 mmol/L (98-107); CKMB 9.1 U/L (0.0-3.6); CREATINE KINASE 731 UL (21-232); CREATININE - SERUM 1.1 mg/dL (0.6-1.3); GLUCOSE 97 mg/dL (74-106); LIPASE 318 U/L (73-393); PROTEIN - SERUM 8.2 g/dL (6.4-8.2); SODIUM 137 mmol/L (136-145); UREA NITROGEN 10 mg/dL (7-18); eGFR NON AFRICAN AMERICAN 75 mL/min (90-120)
[2018-04-02 05:05] LABS: TROPONIN-I < 0.017 ng/mL (0.000-0.060)
[2018-04-02 05:06] LABS: CARBON DIOXIDE 9.2 mmol/L (21.0-32.0)
[2018-04-02 13:22] VITALS: BP 128/86
== END 2018-04-02 13:28 | disposition home or self-care (01) ==
LOC: D.ER 03:09
PROVIDERS: Family Medicine
DX: R07.9 Chest pain, unspecified (principal)

== ENCOUNTER 2018-04-30 22:30 | Inpatient (IN) | payer MEDICARE, MEDICAID ==
[~2018-04-30] VITALS: Ht 182.9 cm; Wt 90.1 kg
[2018-04-30] MEDS ORDERED: LINZESS145 MCG PO (22:38)
[2018-04-30] MEDS ORDERED: PHENERGAN25 M1 PO (22:38)
[2018-04-30] MEDS ORDERED: KLONOPIN1 MG PO (22:40)
[2018-04-30] MEDS ORDERED: TRULANCE3 MG PO (22:42)
[2018-04-30] MEDS ORDERED: AMITIZA24 MCG PO (22:42)
[2018-04-30 23:00] VITALS: BP 113/89
--- NOTE | 2018-04-30 23:00 | NUR ---
PT IS DIFFICULT STICK LAB AT BEDSIDE. INFORMED.
[2018-04-30 23:30] VITALS: BP 132/96
[2018-04-30 23:45] VITALS: BP 157/97
[2018-04-30 23:48] LABS: BASOPHILS 0.1 % (0-2); EOSINOPHILS 0 % (0-7); HEMATOCRIT 49.7 % (42.0-54.0); HEMOGLOBIN 17.8 g/dL (13.5-17.5); IMMATURE GRANULOCYTES 0.3 % (0-5); MCH 32.1 pg (26.0-34.0); MCHC 35.8 g/dL (31.0-37.0); MCV 89.5 fL (80.0-100.0); MEAN PLATELET VOLUME 10.7 fL (7.4-10.4); MONOCYTES 8.8 % (2-11); NEUTROPHILS 87.8 % (40-80); PLATELET COUNT 102 10x3/uL (130-400); RBC 5.55 10x6/uL (4.20-6.10); RDW 14.9 % (11.5-14.5); WBC 7.9 10x3/uL (4.8-10.8)
[2018-04-30 23:54] LABS: APTT 26.8 SECONDS (22.8-39.4); INR 1.57 (0.85-1.17); PROTIME 18.1 SECONDS (11.6-15.0)
[2018-05-01] VITALS (13 sets, daily range): BP systolic 115–155; BP diastolic 73–109; BMI 25.1
[2018-05-01 00:20] LABS: APPEARANCE HAZY (CLEAR); BACTERIA MANY /hpf (NONE SEEN); BILIRUBIN NEGATIVE (NEGATIVE); COLOR YELLOW (YELLOW); EPITHELIAL CELLS RARE /hpf (0-5); GLUCOSE NEGATIVE (NEGATIVE); KETONE MODERATE mg/dL (NEGATIVE); NITRITE POSITIVE (NEGATIVE); PROTEIN NEGATIVE (NEGATIVE); UROBILINOGEN NORMAL (NORMAL); WHITE CELLS - URINE 0-5 /hpf (0-5)
[2018-05-01 00:30] LABS: UDS - AMPHET NEGATIVE QUAL (NEGATIVE); UDS - BARB NEGATIVE QUAL (NEGATIVE); UDS - BENZO POSITIVE QUAL (NEGATIVE); UDS - COCAINE NEGATIVE QUAL (NEGATIVE); UDS - OPIATE NEGATIVE QUAL (NEGATIVE); UDS - PCP NEGATIVE QUAL (NEGATIVE); UDS - THC NEGATIVE QUAL (NEGATIVE)
--- NOTE | 2018-05-01 01:02 | NUR ---
JESUS RIBEIRO AND SHERRIE TO PATIENT.
[2018-05-01 01:21] LABS: ALBUMIN 3.5 g/dL (3.4-5.0); ALKALINE PHOSPHATASE 109 U/L (46-116); BILIRUBIN - TOTAL 1.17 mg/dL (0.2-1.3); CALC OSMOLALITY 274 mosm/kg (275-300); CALCIUM 7.4 mg/dL (8.5-10.1); CHLORIDE - SERUM 101 mmol/L (98-107); CKMB 0.3 U/L (0.0-3.6); GLUCOSE 116 mg/dL (74-106); LIPASE 290 U/L (73-393); PROTEIN - SERUM 8.4 g/dL (6.4-8.2); SODIUM 136 mmol/L (136-145); TROPONIN-I 0.018 ng/mL (0.000-0.060); UREA NITROGEN 18 mg/dL (7-18)
[2018-05-01 01:35] LABS: ALT (SGPT) 164 U/L (10-68); CREATININE - SERUM 0.4 mg/dL (0.6-1.3); eGFR NON AFRICAN AMERICAN > 90 mL/min (90-120)
[2018-05-01 01:40] LABS: AMYLASE - SERUM 324 U/L (25-115); POTASSIUM - SERUM 8.3 mmol/L (3.5-5.1)
--- NOTE | 2018-05-01 02:09 | NUR ---
INFORMED OF PULSE AT THIS TIME. NO FURTHER ORDERS GIVEN
--- NOTE | 2018-05-01 03:10 | NUR ---
PT GIVEN COKE TO DRINK AT THIS TIME.
--- NOTE | 2018-05-01 03:40 | NUR ---
INFORMED OF PULSE NO FURTHER ORDERS GIVEN
[2018-05-01] MEDS ORDERED: SEROQUEL XR400 M1 PO (05:31)
[2018-05-01] MEDS ORDERED: KLONOPIN1 MG PO (05:33)
[2018-05-01] MEDS ORDERED: PHENERGAN25 M1 PO (05:35)
[2018-05-01] MEDS ORDERED: BUSPAR 15 MG TA15 MG PO (05:39)
[2018-05-01 11:31] LABS: ANION GAP 22.2 mmol/L (8-16); CALCIUM 7.2 mg/dL (8.5-10.1)
[2018-05-01 11:36] LABS: CREATININE - SERUM 2.6 mg/dL (0.6-1.3); POTASSIUM - SERUM 4.2 mmol/L (3.5-5.1)
--- NOTE | 2018-05-01 14:03 | NUR ---
ALERT AND ORIENTED X4. REPORTS NOT AMBULATING FOR 4DAYS. PHYSICAL THERAPY ORDERED. KENNY WITH PHYSICAL THERAPY AT BEDSIDE. MAX ASSIST TO STAND. LAB UNABLE TO DRAW LAB. SINUS TACH 156 ON TELEMETRY. NOTIFY OF TACHYCARDIA. CONTINUE PLAN OF CARE AND SAFETY PRECAUTIONS.
--- NOTE | 2018-05-01 19:16 | NUR ---
RECIEVED UP IN BED WITH EYES OPEN. ALERT AND ORIENTED X4. DENIES ANY NEEDS AT THIS TIME. CONTINUES TO HAVE WEAKNESS. IV TO LEFT UPPER ARM WITH LR INFUSING AT 70ML/HR. DENIES ANY NEEDS. WILL CONT. POC.
[2018-05-02 00:30] VITALS: BP 150/86
[2018-05-02 05:02] LABS: BASOPHILS 0 % (0-2); EOSINOPHILS 0.1 % (0-7); HEMATOCRIT 41.4 % (42.0-54.0); HEMOGLOBIN 14.5 g/dL (13.5-17.5); IMMATURE GRANULOCYTES 0.4 % (0-5); LYMPHOCYTES 11.6 % (15-50); MCH 31.8 pg (26.0-34.0); MCV 90.8 fL (80.0-100.0); MEAN PLATELET VOLUME 11.1 fL (7.4-10.4); MONOCYTES 11.6 % (2-11); NEUTROPHILS 76.3 % (40-80); PLATELET COUNT 97 10x3/uL (130-400); RBC 4.56 10x6/uL (4.20-6.10); RDW 15.7 % (11.5-14.5); WBC 8.3 10x3/uL (4.8-10.8)
[2018-05-02 05:26] LABS: ANION GAP 18.9 mmol/L (8-16); BILIRUBIN - TOTAL 0.82 mg/dL (0.2-1.3); CALCIUM 7.3 mg/dL (8.5-10.1); CARBON DIOXIDE 19.1 mmol/L (21.0-32.0); PROTEIN - SERUM 6.5 g/dL (6.4-8.2)
[2018-05-02 05:29] LABS: ALBUMIN 2.6 g/dL (3.4-5.0); CREATININE - SERUM 4.3 mg/dL (0.6-1.3)
[2018-05-02 07:47] VITALS: BP 148/103
--- NOTE | 2018-05-02 08:40 | NUR ---
ALERT AND ORIENTED X4. RESTING IN BED. COMPLAINS OF NUMBNESS OF RT LOWER LEG AND FOOT. PAIN OF UPPER RT LEG. SWELLING AND TIGHTNESS OF RT UPPER LEG. RT LOWER LEG AND FOOT COLD TO TOUCH. PULSE PALPABLE. GENERALIZED BRUISING TO RT LEG. LT WNL. XRAY ORDERED. NO ABNORMALITIES SEEN ON XRAY. NOTIFY [facility]INMAY CRUZ OF RESULTS. VENOUS DOPLER ORDERED PER NANCY VIA TELEPHONE.
[2018-05-02 11:21] VITALS: BP 145/104
[2018-05-02 12:41] VITALS: Ht 182.9 cm; Wt 90.1 kg
--- NOTE | 2018-05-02 14:48 | NUR ---
MRI BRAIN W/WO ORDERED. PT'S GFR IS 15, PER OUR PROTOCOL WE CANNOT GIVE CONTRAST TO PT'S WITH GFR LESS THAN 30. SCAN DONE WITHOUT CONTRAST ONLY. PT'S NURSE REYNA WAS WITH ME DURING SCAN AND SHE WAS INFORMED OF THIS WELL.
[2018-05-02 15:09] VITALS: BP 149/86
[2018-05-02 15:21] LABS: INR 1.85 (0.85-1.17); PROTIME 20.7 SECONDS (11.6-15.0)
--- NOTE | 2018-05-02 15:40 | NUR ---
TAKEN TO MRI VIA BED.
--- NOTE | 2018-05-02 19:57 | NUR ---
RESUMED CARE OF PT, LYING IN BED RESPIRATIONS EVEN AND UNLABORED ON 2LPM VIA NC. [address] ON TELEMETRY. CALL LIGHT IN REACH. RIGHT SHOULDER SALINE LOCKED. WILL CONTINUE OT MONITOR. SEE NURSE ASSESSMENT.
[2018-05-02 20:00] VITALS: BP 143/99
[2018-05-03] VITALS (16 sets, daily range): BP systolic 102–147; BP diastolic 70–112
--- NOTE | 2018-05-03 04:15 | NUR ---
REHABILITATION THERAPY AIDE AT BEDSIDE TO OBTAIN VITALS, CALL LIGHT IN REACH. WILL CONTINUE WITH PLAN OF CARE.
[2018-05-03 06:49] LABS: BASOPHILS 0 % (0-2); EOSINOPHILS 1.2 % (0-7); HEMATOCRIT 39.3 % (42.0-54.0); HEMOGLOBIN 13.9 g/dL (13.5-17.5); IMMATURE GRANULOCYTES 0.3 % (0-5); LYMPHOCYTES 13.7 % (15-50); MCHC 35.4 g/dL (31.0-37.0); MCV 90.6 fL (80.0-100.0); MEAN PLATELET VOLUME 11.2 fL (7.4-10.4); MONOCYTES 12.4 % (2-11); NEUTROPHILS 72.4 % (40-80); PLATELET COUNT 89 10x3/uL (130-400); RBC 4.34 10x6/uL (4.20-6.10); RDW 15.6 % (11.5-14.5); WBC 7.7 10x3/uL (4.8-10.8)
[2018-05-03 07:22] LABS: ALBUMIN 2.6 g/dL (3.4-5.0); ALKALINE PHOSPHATASE 86 U/L (46-116); ALT (SGPT) 308 U/L (10-68); BILIRUBIN - TOTAL 0.87 mg/dL (0.2-1.3); CALC OSMOLALITY 283 mosm/kg (275-300); CALCIUM 7.2 mg/dL (8.5-10.1); CARBON DIOXIDE 19.2 mmol/L (21.0-32.0); CHLORIDE - SERUM 97 mmol/L (98-107); CREATINE KINASE 16118 UL (21-232); CREATININE - SERUM 7.2 mg/dL (0.6-1.3); GLUCOSE 98 mg/dL (74-106); POTASSIUM - SERUM 4.1 mmol/L (3.5-5.1); PROTEIN - SERUM 6.3 g/dL (6.4-8.2); SODIUM 134 mmol/L (136-145); UREA NITROGEN 57 mg/dL (7-18); eGFR NON AFRICAN AMERICAN 9 mL/min (90-120)
--- NOTE | 2018-05-03 08:17 | NUR ---
EATING BRK. MOLINA NEEDS. CALL LIGHT IN REACH. WILL MONITOR.
[2018-05-03 08:20] LABS: CKMB 230.4 U/L (0.0-3.6)
--- NOTE | 2018-05-03 09:12 | NUR ---
DR. LEI WANTS TO SPEAK WITH [facility] PROMOTION OFFICER. ON [facility] CALLED AND THEY PAGED DR. VELOZ.
--- NOTE | 2018-05-03 09:47 | NUR ---
SPOKE WITH DR. VELOZ AND STATED TO HIM DR. LEI WAS WANTING TO SPEAK WITH HIM. GAVE HIM DR. LEI'S NUMBER [phone].
--- NOTE | 2018-05-03 12:03 | NUR ---
PT WANTING PAIN MEDICATION FOR RIGHT LEG. STATED THIS TO DR. VELOZ AND HE STATED "OK"
--- NOTE | 2018-05-03 12:42 | NUR ---
TERRI IN [facility] STATED ARTERIOL DOPPLER WAS DONE YESTERDAY BUT SHE WILL COME IN AND REPEAT IT.
--- NOTE | 2018-05-03 12:58 | NUR ---
PER DR. MARIA'S NOTE VENOUS AND ARTERIOL DOPPLER WAS DONE YEST. CALLED TERRI FROM [facility] AND STATED TO HER THAT ONE ORDERED TODAY CAN BE CANCELED.
--- NOTE | 2018-05-03 13:07 | NUR ---
DR. MCFADDEN OUT OF [facility] TILL 05/09/18.
--- NOTE | 2018-05-03 13:51 | NUR ---
DR ALICIA ON FLOOR AT THIS TIME. NEW ORDERS RECEIVED. PATIENT IS GIVEN SURGICAL BATH AND NEW LINENS TO BED PLACED. PER DR ALICIA, I CALLED KIMBERLYN ORELLANACONCRETE TILE MACHINE OPERATOR AND TOLD HER THAT THE PATEINT NEEDED TO GO TO ICU POST OP. SHE STATES THAT SHE WILL GET US A BED. PATIENT IS MADE AWARE OF NPO STATUS AT THIS TIME.
--- NOTE | 2018-05-03 14:13 | NUR ---
PROCEDURE CONSENTS SIGNED AND EKG IN CHART. PT TO GO TO ROOM 2311 IN ICU POST OP. PT VERY ANXIOUS AT THIS TIME.
--- NOTE | 2018-05-03 14:17 | NUR ---
TELEMETRY RODOLFO'Carlo.
--- NOTE | 2018-05-03 14:18 | NUR ---
PT BEING TAKEN TO SURGERY VIA BED.
--- NOTE | 2018-05-03 14:20 | NUR ---
PT'S BELONGING'S TAKEN TO ICU.
--- NOTE | 2018-05-03 14:30 | NUR ---
REPORT GIVEN ICU NURSE.
[2018-05-03 14:56] LABS: HEMATOCRIT 35.7 % (42.0-54.0); HEMOGLOBIN 12.7 g/dL (13.5-17.5)
--- NOTE | 2018-05-03 16:43 | NUR ---
AT 1600 NEURO CHECKS REVEAL STRONG RISK CONTROL ANALYST STRENGTH ON RIGHT. RISK CONTROL ANALYST STRENGTH ON LEFT SOMEWHAT DIMINISHED. PEDAL PULSES PRESENT, STRONG BILATERALLY. WILL CONTINUE TO MONITOR. 1640 ALERT AND TALKING. FOLLOWS COMMANDS INSTRUCTED BUT FALLS BACK TO SLEEP EASILY. WILL CONTINUE TO MONITOR.
--- NOTE | 2018-05-03 17:20 | NUR ---
PATIENT RECEIVED TO ICU AT 1655, HEAD TO TOE ASSESSMENT COMPLETED. CHEST TUBE TO 20 CM H20 SUCTION, NO AIR LEAKS NOTED, CHEST TUBE TO RIGHT CHEST. CVL AND TRIALYSIS CATH TO RIGHT UPPER CHEST WITH DRAINAGE NOTED. BICARB (150 MEQ) D5W GTT STARTED PER ORDER AT 125 CC/HR. ABG WITH LYTES DRAWN PER ORDER BY RT. BANDAGE TO RIGHT LEG WITH DRAINAGE NOTED REINFORCED AND PAD PLACED. CMS DISTAL POSITIVE. PATIENT LETHARGIC BUT AWAKENS TO VOICE. ALERT AND ORIENTED X 3. DR. LEI AT ROOM AND DR. HERRERA CONSULTED PER DR ALICIA AT ROOM.
--- NOTE | 2018-05-03 17:59 | NUR ---
CONTACTED TELECOMMUNICATIONS EQUIPMENT INSTALLER TO OVERRIDE ANTIBIOTICS ORDERED PER PATIENT.
--- NOTE | 2018-05-03 18:00 | NUR ---
PAGED DR. ALICIA TO NOTIFIY OF BLOOD OOZING FROM RIGHT FASCIOTOMY, REPLACING PADS AT APPROXIMATELY 1/HR.
--- NOTE | 2018-05-03 18:36 | NUR ---
SPOKE TO DR. ALICIA CONCERNING PATIENTS BLEEDING, STATED TO OBTAIN H&H Q6 HRS AND TO TRANSFUSE 2 PRBC IF HGH LESS THAN 8.
[2018-05-03 19:21] LABS: HEMATOCRIT 32.7 % (42.0-54.0); HEMOGLOBIN 11.5 g/dL (13.5-17.5)
--- NOTE | 2018-05-03 20:00 | NUR ---
PTS DRSG REENFORCED WITH ABD PADS AND PADS UNDER LEG CHANGED. PT BECAME NAUSESATED WHEN BEING TURNED. ZOFRAN GIVEN PER ORDER.
[2018-05-04] VITALS (23 sets, daily range): BP systolic 99–160; BP diastolic 72–92
[2018-05-04 01:23] LABS: HEMOGLOBIN 9.9 g/dL (13.5-17.5)
[2018-05-04 04:32] LABS: BASOPHILS 0 % (0-2); EOSINOPHILS 0.4 % (0-7); HEMOGLOBIN 8.8 g/dL (13.5-17.5); IMMATURE GRANULOCYTES 1.3 % (0-5); LYMPHOCYTES 11.6 % (15-50); MCH 31.9 pg (26.0-34.0); MCHC 35.2 g/dL (31.0-37.0); MCV 90.6 fL (80.0-100.0); MEAN PLATELET VOLUME 9.7 fL (7.4-10.4); MONOCYTES 17.4 % (2-11); NEUTROPHILS 69.3 % (40-80); PLATELET COUNT 109 10x3/uL (130-400); RBC 2.76 10x6/uL (4.20-6.10); RDW 15.6 % (11.5-14.5); WBC 6.7 10x3/uL (4.8-10.8)
[2018-05-04 04:58] LABS: ALKALINE PHOSPHATASE 55 U/L (46-116); BILIRUBIN - TOTAL 0.61 mg/dL (0.2-1.3); CARBON DIOXIDE 19.9 mmol/L (21.0-32.0); CHLORIDE - SERUM 94 mmol/L (98-107); CREATININE - SERUM 8.8 mg/dL (0.6-1.3); PROTEIN - SERUM 4.9 g/dL (6.4-8.2); SODIUM 129 mmol/L (136-145); UREA NITROGEN 69 mg/dL (7-18); eGFR NON AFRICAN AMERICAN 7 mL/min (90-120)
[2018-05-04 05:42] LABS: ALBUMIN 1.7 g/dL (3.4-5.0); ALT (SGPT) 182 U/L (10-68); CALC OSMOLALITY 282 mosm/kg (275-300); CALCIUM 6.6 mg/dL (8.5-10.1); GLUCOSE 162 mg/dL (74-106)
--- NOTE | 2018-05-04 06:00 | NUR ---
SERUM CA 6.6 AND ALBUMIN 1.7 , CORRECTED CA 8.4.
[2018-05-04 06:19] LABS: CREATINE KINASE 25990 UL (21-232)
[2018-05-04 06:21] LABS: CKMB 83.2 U/L (0.0-3.6)
--- NOTE | 2018-05-04 07:30 | NUR ---
PATIENT RESTING IN BED C CALL REYNA IN REACH AWAKE AND ALERT. RESPIRATIONS ARE NORMAL. VSS ON ROOM AIR. HEART RATE ELEVATED TO 103. NORMAL SINUS RHYTHM. RIGHT LEG DRESSED FROM FASCIOTOMY AND GREALDINE WRAPPED. ABD PADS AND PAD WRAPPED AROUND GERALDINE WRAP--ABD PADS SLIGHTTLY BLOODY. RIGHT PEDAL PULSE PALPABLE. WILL CONTINUE TO MONITOR URINE OUTPUT AND Q6 H&H. CALL REYNA IN REACH. NO COMPLAINTS. BREAKFAST SERVED
--- NOTE | 2018-05-04 08:29 | NUR ---
MRI OF BACK IS ON HOLD TILL FURTHER NOTICE PER DR. ALICIA. CREATININE IS 8.8 THIS MORNING--DR. LEI HAS BEEN PAGED. NOTIFIED MRI TEAM THAT WE ARE NOT DOING MRI TILL FURTHER NOTICE.
--- NOTE | 2018-05-04 08:40 | NUR ---
INFORMED DR. LEI THAT PATIENT ONLY PUT OUT 50CC URINE OUT PUT LAST NIGHT IN CASTRO.
--- NOTE | 2018-05-04 08:40 | NUR ---
NO DIALYSIS TODAY PER DR. LEI.
--- NOTE | 2018-05-04 09:00 | NUR ---
ASSESSED FOR FURTHER BLEEDING. PADS ARE NO FURTHER SATURATED THAN THEY WERE AT 0700. PATIENT AWAKE ALERT AND ORIENTED. VSS. WILL CONTINUE TO MONITOR
--- NOTE | 2018-05-04 09:15 | NUR ---
CALLED PHARMACY ABOUT MORNING MEDS NOT IN PYXIS. STATED THEY WILL BRING UP./
--- NOTE | 2018-05-04 09:57 | NUR ---
NUTRITION F/U PT ON REG DIET, ONLY HAD MILK AND JUICE FOR BREAKFAST. WILL CONTINUE TO PROVIDE DIET, MONITOR PO INTAKE. RD FOLLOWING
--- NOTE | 2018-05-04 11:00 | NUR ---
CONSULTED DR. VELOZ
--- NOTE | 2018-05-04 11:04 | NUR ---
CALLED PHARMACY AGAIN ABOUT ABX AND AZOTEMIA MEDS.
--- NOTE | 2018-05-04 11:43 | NUR ---
DR. VELOZ STATED IT IS OKAY TO GIVE MAXIPIME NOW WITHOUT RESCHEDULING NEXT DOSE.
--- NOTE | 2018-05-04 11:49 | NUR ---
SERVED LUNCH. VSS. DR. VELOZ CAME BY TO SEE PATIENT.
--- NOTE | 2018-05-04 12:55 | NUR ---
PLACED PATIENT ON BED JAY. FALSE ALARM. NO BM.
[2018-05-04 13:28] LABS: HEMATOCRIT 21.5 % (42.0-54.0); HEMOGLOBIN 7.8 g/dL (13.5-17.5)
--- NOTE | 2018-05-04 14:10 | NUR ---
INITIATED TRANSFUSION OF 1ST UNIT PRBC. MONITORING PATIENT
--- NOTE | 2018-05-04 15:40 | NUR ---
TALKED TO DR. LEI ABOUT PATIENT URINE OUTPUT (35 ALL DAY). ORDERED 80MG LASIX BID AND PROBABLE DIALYSIS TOMORROW.
--- NOTE | 2018-05-04 17:00 | NUR ---
SPOKE TO DR. ALICIA ON PHONE ABOUT DRESSING OVER LEG. ORDERED TO NOT CHANGE DRESSING YET. ALSO SPOKE TO DR. AGUILLON ABOUT CENTRAL LINE DRESSINGS. STATED IT IS OKAY TO CHANGE THESE. NOTIFIED MARAL THAT PATIENT IS VERY LETHARGIC RIGHT NOW BUT ALL VITAL SIGNS ARE NORMAL. NO FURTHER ORDERS GIVEN.
--- NOTE | 2018-05-04 17:30 | NUR ---
CALLED PHARMACY ABOUT AZOTEMIA BEING OUT OF STOCK. STATED THEY WILL BRING ITUP
--- NOTE | 2018-05-04 17:56 | NUR ---
CHANGED RIGHT SUBCLAVIAN DRESSING WELL RIGHT IJ TRIALYSIS CATHETER DRESSING.
--- NOTE | 2018-05-04 18:13 | NUR ---
PATIENT IS TREMBLING--ALCOHOL WITHDRAWALS MOST LIKELY. OBTAINED ORDER FOR 2MG ATIVAN IV NOW PER DR. AGUILLON.
--- NOTE | 2018-05-04 18:53 | OP ---
PATIENT NAME: KENNY JONES MEDICAL RECORD: [id number] :67 LOCATION:.[facility] D.2311 ADMISSION DATE:05/01/18 SURGEON: ROSANNE AGUILLON MD DATE OF OPERATION: 05/03/2018 PREOPERATIVE DIAGNOSES: 1. Need of emergent IV access. 2. Rhabdomyolysis. 3. Acute renal failure. POSTOPERATIVE DIAGNOSES: 1. Need of emergent IV access 2. Rhabdomyolysis. 3. Acute renal failure. 4. Iatrogenic right pneumothorax. PROCEDURES: 1. Insertion of right-sided triple lumen central venous catheter, 16 cm. 2. Placement of internal jugular Trialysis catheter (non-tunneled and non-cuffed hemodialysis catheter). 3. Placement of right 28-Kazakh chest tube. SURGEON: Rosanne Aguillon MD TONGUE AND GROOVE MACHINE SETTER: None. BLOOD LOSS: 25 cc. ANESTHESIA: General. OPERATIVE COURSE: I was asked to come to OR #3. The patient was being masked and the METAL ROASTER was having difficulty intubating the patient as he was not paralyzed. I was asked to place an emergent central line. The right neck and right chest were sterilely prepped and draped. I tried to access the right subclavian vein utilizing a supraclavicular approach. I sucked back air. I then attempted again to access the subclavian vein utilizing a supraclavicular antegrade approach. I was able to do this on the second try. A guidewire passed easily. A small skin anna was accomplished. A vessel dilator was used to dilate a subcutaneous tract. A 16-cm triple lumen central venous catheter was inserted to the hub. It was sutured in place times 3. All lumens flushed easily and aspirated dark, nonpulsatile blood. The procedure was made more difficult as the patient was moving, was restless, and was not completely still despite the masked anesthesia. We obtained a chest x-ray which did reveal a pneumothorax and this was confirmed by the radiologist. Dr. Alicia went about the fasciotomies of the right thigh. We then sterilely prepped and draped the right chest and right neck. In the midaxillary line, at approximately the fifth intercostal space, an incision was accomplished. I then tunneled up over rib into the right hemithorax. I then advanced a 28-Kazakh chest tube. Another chest x-ray was obtained and the chest tube was not in very far. I then repositioned it by inserting it further. A repeat chest x-ray revealed a nicely placed chest tube and no residual pneumothorax. Chest tube was sutured in place with a 2-0 silk. I then placed a horizontal mattress 3-0 nylon around the chest tube insertion site and then affixed this to chest tube with bone wax. The chest tube was then attached to suction and a sterile OPERATIVE REPORT [id number] KENNY JONES dressing was applied. The patient was then positioned in the Trendelenburg position. The right internal jugular vein was percutaneously accessed in an antegrade fashion. A guidewire passed easily. A small skin anna was accomplished. A vessel dilator was used to dilate a subcutaneous tract. A short Trialysis catheter was inserted to the hub. It was sutured in place times 3. All lumens flushed easily and aspirated dark, nonpulsatile blood. Another x-ray was obtained and this revealed adequate placement of the central venous catheter as well as the Trialysis catheter and the chest tube with no recurrent pneumothorax. The patient was then conveyed to the recovery room. TRANSINT:[id number] Voice Confirmation ID: [id number] DOCUMENT ID: [id number] ROSANNE AGUILLON MD at 1853 CC: HANNAH HOBSON MD, LETITIA LEI MD and OLAF ALICIA [id number] DICTATION DATE: 05/03/18 174 BAND PRESSER: 05/03/18 182 ADM IN [id number] [place] [address]
--- NOTE | 2018-05-04 19:05 | NUR ---
INITIATED SECOND UNIT OF PRBC AT THIS TIME. PATIENT STABLE
[2018-05-04 23:36] LABS: HEMOGLOBIN 9.6 g/dL (13.5-17.5)
[2018-05-05] VITALS (25 sets, daily range): BP systolic 121–153; BP diastolic 76–117
[2018-05-05 05:53] LABS: BASOPHILS 0.2 % (0-2); EOSINOPHILS 2.2 % (0-7); HEMATOCRIT 25.9 % (42.0-54.0); HEMOGLOBIN 9.3 g/dL (13.5-17.5); IMMATURE GRANULOCYTES 1.9 % (0-5); LYMPHOCYTES 15.2 % (15-50); MCH 30.7 pg (26.0-34.0); MCHC 35.9 g/dL (31.0-37.0); MEAN PLATELET VOLUME 9.7 fL (7.4-10.4); MONOCYTES 21.7 % (2-11); NEUTROPHILS 58.8 % (40-80); RBC 3.03 10x6/uL (4.20-6.10); RDW 15.6 % (11.5-14.5); WBC 6.5 10x3/uL (4.8-10.8)
[2018-05-05 06:01] LABS: INR 1.53 (0.85-1.17); PROTIME 17.8 SECONDS (11.6-15.0)
[2018-05-05 06:06] LABS: MCV 85.5 fL (80.0-100.0); PLATELET COUNT 68 10x3/uL (130-400)
[2018-05-05 06:18] LABS: ALBUMIN 1.7 g/dL (3.4-5.0); ALKALINE PHOSPHATASE 53 U/L (46-116); BILIRUBIN - TOTAL 0.58 mg/dL (0.2-1.3); CARBON DIOXIDE 20.5 mmol/L (21.0-32.0); CHLORIDE - SERUM 93 mmol/L (98-107); CREATININE - SERUM 10.2 mg/dL (0.6-1.3); POTASSIUM - SERUM 4.1 mmol/L (3.5-5.1); PROTEIN - SERUM 4.9 g/dL (6.4-8.2); SODIUM 127 mmol/L (136-145); UREA NITROGEN 85 mg/dL (7-18); VANCOMYCIN - RANDOM 21.1 ug/mL (10.0-20.0); eGFR NON AFRICAN AMERICAN 6 mL/min (90-120)
--- NOTE | 2018-05-05 07:00 | NUR ---
TURNED LEVOPHED BACK ON DUE TO SYSTOLIC BP OF 68. SET TO 6MCG/MIN. BP RESPONDED. LUNG MCKINLEY CLEAR. PATIENT SEDATED ON PROPOFOL. WILL CONTINUE TO MONITOR.
--- NOTE | 2018-05-05 07:00 | NUR ---
PATIENT RESTING IN BED C VITAL SIGNS STABLE. CALL REYNA IN REACH. NO COMLAINTS. WILL CONTINUE TO MONITOR
[2018-05-05 07:19] LABS: ALT (SGPT) 127 U/L (10-68); CALC OSMOLALITY 280 mosm/kg (275-300); CREATINE KINASE 11865 UL (21-232); GLUCOSE 100 mg/dL (74-106)
[2018-05-05 07:20] LABS: CALCIUM 6.6 mg/dL (8.5-10.1)
[2018-05-05 07:21] LABS: CKMB 34.8 U/L (0.0-3.6)
--- NOTE | 2018-05-05 09:30 | NUR ---
DR. ARELLANO CAME BY TO SEE PATIENT. CONTEMPLATED ORDERING PLATELETS BUT DECIDED AGAINST IT DUE TO PREVIOUS HISTORY OF DVT AND PE.
[2018-05-05 11:13] LABS: ANA REFLEX - DIRECT Negative (Negative)
[2018-05-05 12:15] LABS: HEMATOCRIT 26.2 % (42.0-54.0); HEMOGLOBIN 9.4 g/dL (13.5-17.5)
--- NOTE | 2018-05-05 13:04 | NUR ---
CHANGED THORA SEAL CHEST TUBE BECAUSE IT WAS KNOCKED ON SIDE. CALCULATED 30ML HAD DRAINED SINCE LAST DOCUMENTED. WATER SEAL INTACT AND SUCTION SET TO 20CM
--- NOTE | 2018-05-05 13:42 | NUR ---
ASSISTED PATIENT ON BED JAY. NO RESULTS. STATES "I FEEL LIKE I HAVE TO GO". IF NO BM IN NEXT COUPLE OF HOURS WILL CALL FOR SUPPOSITORY ORDER. GAVE ZOFRAN FOR NAUSEA AND NORCO FOR PAIN. VSSS. WILL CONTINUE TO MONITOR
--- NOTE | 2018-05-05 15:00 | NUR ---
PT HAD SMALL LOOSE BM ON BEDPAN. NURSE CLEANED AND TURNED TO LEFT SIDE.
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
--- NOTE | 2018-05-05 18:11 | NUR ---
BANANA BAG FROM LASTNIGHT STILL INFUSING. WILL HANG NEW BAG WHEN THIS ONE EMPTIES
--- NOTE | 2018-05-05 19:15 | NUR ---
BEDSIDE SHIFT REPORT RECIEVED FROM MELANY SOFIA. VISUALIZED DRESSING TO RIGHT LEG, VERY SATURATED. PER MELANY SOFIA, NO DRESSING CHANGES TO BE PREFORMED PER DR ALICIA. WILL REVIEW ORDERS. PULSE WEAK BUT PALPABLE AT DORSALIS PEDIS. C/O PAIN 10/10 IN CHEST WITH SOB AND PAIN WITH BREATHING, STATES THIS HAS BEEN HAPPENING. CHECKED CT INSERTION SITE TO RIGHT CHEST, DRESSINGS CDI, NO KINKS IN TUBING, DRAINING BRIGHT RED BLOOD, WATER SEAL INTACT AND TO 21 CM SUCTION. PT ASKING FOR PAIN MEDS AND SOFRAN, WILL GIVE PER ORDERS. WILL ASSUME CARE OF PATIENT.
--- NOTE | 2018-05-05 19:35 | NUR ---
SHIFT ASSESSMENT COMPLETE, PLEASE SEE FLOW SHEETS FOR DETAILS. PATIENT AWAKE AND ALERT, PAIN MEDS AND ZOFRAN GIVEN PER ORDERS. DENIES ANY OTHER NEEDS. LUNG SOUNDS DIMINISHED ON RIGHT SIDE, CLEAR ON LEFT SIDE. S1S2 HEARD AND RRR ON CM. BS ACTIVE X4. CASTRO IN PLACE DRAINING SCANT URINE VIA GRAVITY. BED LOW AND LOCKED, CALL LIGHT IN REACH. WILL CPOC.
[2018-05-05 19:52] LABS: HEMATOCRIT 25.3 % (42.0-54.0); HEMOGLOBIN 9.3 g/dL (13.5-17.5)
--- NOTE | 2018-05-05 21:00 | NUR ---
TOLERATED PM MEDS WELL. STATES NO CHANGE IN PAIN, HAS BEEN THAT WAY FOR DAYS PER PATIENT. DENEIS ANY OTHER NEEDS. BED LOW AND LOCKED, CALL LIGHT IN REACH. VSS, WILL CPOC.
--- NOTE | 2018-05-05 23:00 | NUR ---
REASSESSMENT COMPLETE, PLEASE SEE FLOW SHEETS FOR DETAILS. NO ACUTE CHANGES FROM PREVIOUS ASSESSMENT TO NOTE. THIGH DRESSING REINFORCED WITH 4 ABD PADS AND 4" KERRLIX WRAP, LIGHTLY AROUND. TOLERATED WELL. CHEST TUBE DRAINING WELL. STILL C/O CHEST PAIN AT TUBE INSERTION SITE, WILL GIVE PAIN MEDS PER ORDERS. NO OTHER NEEDS ATT. VSS, BED LOW AND LOCKED, CALL LIGHT IN REACH. WILL CPOC.
[2018-05-06] VITALS (22 sets, daily range): BP systolic 110–155; BP diastolic 72–106
--- NOTE | 2018-05-06 01:00 | NUR ---
RESTING QUIETLY, VSS, BED LOW AND LOCKED, CALL LIGHT IN REACH. WILL CPOC.
--- NOTE | 2018-05-06 03:00 | NUR ---
REASSESSMENT COMPLETE, PLEASE SEE FLOW SHEETS FOR DETAILS. NO ACUTE CHANGES FROM PREVIOUS ASSESSMENT TO NOTE. ASKING FOR PAIN MEDS, THESE WILL BR PROVIDED PER ORDERS. DENIES ANY OTHER NEEDS ATT. VSS, BED LOW AND LOCKED, CALL LIGHT IN REACH. WILL CPOC.
--- NOTE | 2018-05-06 05:00 | NUR ---
RESTING, VSS, BED LOW AND LOCKED, CALL LIGHT IN REACH. VSS, WILL CPOC.
[2018-05-06 06:08] LABS: ALBUMIN 1.7 g/dL (3.4-5.0); ALKALINE PHOSPHATASE 57 U/L (46-116); BILIRUBIN - TOTAL 0.65 mg/dL (0.2-1.3); CALC OSMOLALITY 287 mosm/kg (275-300); CARBON DIOXIDE 18.4 mmol/L (21.0-32.0); CHLORIDE - SERUM 92 mmol/L (98-107); CREATININE - SERUM 11.6 mg/dL (0.6-1.3); GLUCOSE 100 mg/dL (74-106); POTASSIUM - SERUM 4.3 mmol/L (3.5-5.1); PROTEIN - SERUM 5.1 g/dL (6.4-8.2); SODIUM 127 mmol/L (136-145); UREA NITROGEN 104 mg/dL (7-18); VANCOMYCIN - RANDOM 17.9 ug/mL (10.0-20.0); eGFR NON AFRICAN AMERICAN 5 mL/min (90-120)
[2018-05-06 06:13] LABS: ALT (SGPT) 94 U/L (10-68)
[2018-05-06 06:26] LABS: HEMATOCRIT 25.1 % (42.0-54.0); MCH 30.7 pg (26.0-34.0); MCHC 35.9 g/dL (31.0-37.0); MCV 85.7 fL (80.0-100.0); MEAN PLATELET VOLUME 9.2 fL (7.4-10.4); PLATELET COUNT 72 10x3/uL (130-400); RBC 2.93 10x6/uL (4.20-6.10); RDW 15.7 % (11.5-14.5); WBC 6.8 10x3/uL (4.8-10.8)
--- NOTE | 2018-05-06 07:00 | NUR ---
PATIENT RESTING IN BED C STABLE VSS. CHEST TUBE INTACT. RIGHT LEG DRESSING REINFORCED. BANANA BAG INFUSING THROUGH RIGHT IJ CENTRAL LINE AT 50. AWAKE ALERT AND ORIENTED. WILL CONTINUE TO MONITOR
[2018-05-06 07:08] LABS: CKMB 22.5 U/L (0.0-3.6); CREATINE KINASE 7600 UL (21-232)
[2018-05-06 07:36] LABS: EOSINOPHILS 2 % (0-7); LYMPHOCYTES 21 % (15-50); MONOCYTES 16 % (2-11); NEUTROPHILS 58 % (40-80); PLATELET ESTIMATE DECREASED
[2018-05-06 07:38] LABS: ANISOCYTOSIS OCC; POLYCHROMASIA OCC
--- NOTE | 2018-05-06 09:32 | NUR ---
NUTRITION F/U CHART REVIEWED. PT NOW ON CLEAR LIQUID DIET. CURRENTLY SLEEPING. WILL MONITOR DIET ADVANCEMENT. MAY REQUIRE NUTRITION SUPPORT IF UNABLE TO TOLERATE FULL LIQUIDS IN [address] FOLLOWING
--- NOTE | 2018-05-06 10:30 | NUR ---
DIALYSIS NURSE PREPARING PATIENT TO ADMINISTER DIALYSIS AT THIS TIME. PATIENTS VITAL SIGNS ARE STABLE
--- NOTE | 2018-05-06 10:36 | NUR ---
GAVE PATIENT INCENTRIVE SPIROMETER FOR ATELECTASIS. INSTRUCTED HOW TO USE AND WHAT ITS FOR.
--- NOTE | 2018-05-06 10:58 | NUR ---
CHEST TUBE CLAMPED PER ORDERS BY DR. AGUILLON. CHEST XRAY ORDERED 4 HOURS FROM NOW
--- NOTE | 2018-05-06 12:27 | NUR ---
ADMINISTERED PRN DILAUDID PATIENT IS COMPLAINING OF PAIN AT CHEST TUBE SITE. CHEST TUBE IS CLAMPED RIGHT PER ORDERS FROM DR. AGUILLON. MONITORING O2 SATURATION. STILL STABLE AT 95% ON ROOM AIR USUAL. WILL PLACE O2 NC BACK ON AT 2L ANYWAY.
--- NOTE | 2018-05-06 12:39 | NUR ---
CALLED [facility] (APARTMENT COMPLEX OF PATIENT) TO TELL THEM ABOUT PATIENTS DOG LOCKED IN APARTMENT AND NOONE AVAILABLE TO FEED OR WATER. NO ANSWER-LEFT VOICEMAIL
--- NOTE | 2018-05-06 12:44 | OP ---
PATIENT NAME: KENYN JONES MEDICAL RECORD: [id number] :67 LOCATION:[facility] D.2311 ADMISSION DATE:05/01/18 SURGEON: OLAF ALICIA MD DATE OF OPERATION: 05/03/2018 PREOPERATIVE DIAGNOSIS: Acute compartment syndrome of the right thigh. POSTOPERATIVE DIAGNOSES: 1. Acute compartment syndrome of the right thigh. 2. Loss of IV access. 3. Pneumothorax. 4. Need for dialysis. PROCEDURE: Compartment release of the right thigh. All of the procedures were done by Dr. Everett. Please see his OP note for that. Briefly, Dr. Everett had put in a central line followed by a chest tube followed by Trialysis catheter and the patient did get a Villar placement afterwards. INDICATIONS: This is a 52-year-old male who upon questioning what happened, his answer was I do know, I started drinking and took pills and woke up here 4 days ago. Orthopedic surgery was consulted today, his thigh compartment seem to be getting very tight and in fact that time, the physical examination had classic signs of compartment syndrome with extreme pain. Review of his MRI that was taken of his hip did show likely hamstring tendon tears, which may have bled when the patient was placed on DVT prophylaxis. At the time of surgery, the patient has a CK-MB of over 16,000 and acute kidney failure with a BUN and creatinine a 58 and 7.2 respectively. OPERATIVE SUMMARY IN DETAIL: After obtaining the appropriate preoperative orthopedic surgery consent as well as anesthetic consultation, evaluation and clearance, the patient was brought to the operating room and placed on the operating table in supine position. After adequate rapid sequence was established, the patient had infiltrated IV. At this point, Dr. Everett started a CVL, see his op note for that detail. Radiographs of the CVL showed good placement of CVL; however, a small pneumothorax. At this point, the patient's right lower extremity was prepped and draped in routine sterile fashion. Both the anterior and posterior compartments were released the single incision on the lateral aspect down to the fasciotomy, which resulted in herniation of muscles through the fasciotomy. Small incision was made in the medial aspect of the thigh to release the adductor compartment and likewise it herniated. Wounds were then reapproximated gently with a red vessel loop and jose system. Sterile dressings were applied. At this point, Dr. Everett proceeded with placement of a chest tube with radiograph control as well as placement of a trial assist with radiographic control. Having completed this, the patient was awakened, extubated, and taken to the recovery room in stable condition. He will then be transferred to the ICU. TRANSINT:[id number] Voice Confirmation ID: [id number] DOCUMENT ID: [id number] OPERATIVE REPORT [id number] KENNY JONES MD, OLAF COX at 1244 CC: [id number] DICTATION DATE: 05/03/18 1536 JAWBONE BREAKER: 05/03/18 1648 ADM IN [facility] [address] [id number]
--- NOTE | 2018-05-06 14:13 | NUR ---
DIALYSIS COMPLETE. 1 LITER REMOVED. VSS UNCHANGED FROM BASELINE
[2018-05-06 14:16] LABS: MITOCHONDRIAL ANTIBODY 4.7 Units (0.0-20.0)
--- NOTE | 2018-05-06 14:17 | NUR ---
REMOVED INCENTIVE SPIROMETER GIVEN EARLIER PER DR. HERRERA ORDERS.
--- NOTE | 2018-05-06 14:28 | NUR ---
OBTAINED ORDERS FROM DR. ALICIA TO CHANGE DRESSING ON RIGHT LEG. AWAITING INSTRUCTION ORDERS FROM
--- NOTE | 2018-05-06 15:30 | NUR ---
PAGED DR. ALICIA'S NURSE NURSE SONIA. AWAITING INTSTRUCTIONS ON HOW TO CHANGE THIS RIGHT LEG DRESSING.
--- NOTE | 2018-05-06 16:00 | NUR ---
CHANGED PADS UNDERNEATH PATIENT AND RIGHT LEG. SEROSANGUINEOUS FLUID SATURATED TWO DISPOSABLE PADS--BOTH REPLACED. PULLED UP IN BED AND TURNED TO LEFT SIDE.
--- NOTE | 2018-05-06 17:15 | NUR ---
DUE TO SITUATION WITH PATIENTS DOG TRAPPED IN APARTMENT AND NOBODY WILLING TO FEED IT, PATIENT VERBALLY CONSENTED TO ALLOWING POLICE TO ENTER THE APARTMENT, GET THE DOG, HAND IT OVER TO ANIMAL SERVICES, AND LET THEM KEEP IT TILL PATIENT RETURNS HOME TO TAKE CARE OF IT. CONTACTED APARTMENT COMPLEX, ANIMAL SERVICES, AND POLICE DEPARTMENT. PD AND ANIMAL SERVICES NOT CONTACTED EACH OTHER YET. OFFICER STATED HE WILL CALL BACK WHEN A THEY FIGURE OUT A SOLUTION.
--- NOTE | 2018-05-06 18:23 | NUR ---
ADMNISTERED PRN DILAUDID FOR C/O PAIN RELATED TO CHEST TUBE REMOVAL. VSS. CALL REYNA IN REACH
--- NOTE | 2018-05-06 19:00 | NUR ---
REPORT RECIEVED, SHIFT ASSESSMENT COMPLETE, PLEASE SEE FLOW SHEETS FOR DETAILS. AM NURSE ASSISTED WITH CHANGE OF ABD PADS AND KERLIX WRAP OVER RIGHT LEG DRESSING. PATIENT TOLERATED WELL. STATES PAIN 5/10 IN LEG. NO CHEST PAIN. CHEST TUBE SITE DRESSING CDI. SPO2 100% REMOVED 2L HIGH FLOW NC, TOLERATED WELL. VSS ATT, BED LOW AND LOCKED, CALL LIGHT IN REACH WILL CPOC.
--- NOTE | 2018-05-06 20:58 | MORECARE ---
CASE MANAGEMENT DISCHARGE SUMMARY PATIENT: KENNY JONES UNIT: [id number] ADM DATE: 05/01/18 AGE: 52 : 67 SEX: M ROOM/BED: D.2311 AUTHOR: GEORGE BIRD PHYSICIAN: REFERRING PHYSICIAN: HANNAH HOBSON MD DATE OF SERVICE: 05/06/18 Discharge Plan Patient Name: KENNY JONES Facility: [facility]:[place] : 1965 Planned Disposition: Home Anticipated Discharge Date: Discharge Date: Expected LOS: Initial Reviewer: [email or web address] Initial Review Date: 05/06/2018 Generated: 05/06/18 9:58 pm Patient Name: KENNY JONES Page 87598 at 2057 All edits/amendments must be made on the electronic document DICTATION DATE: 05/06/182057 FLEET MANAGER: SPENCER 05/06/182057 RPT#: [id number] DC DATE: STATUS: ADM IN [facility] [address] [place] [address] END OF REPORT
--- NOTE | 2018-05-06 21:00 | NUR ---
RESTING, VSS, WOKE EASILY AND TOLERATED MEDS WELL. DENIES ANY OTHER NEEDS ATT. BED LOW AND LOCKED, CALL LIGHT IN REACH. WILL CPOC.
--- NOTE | 2018-05-06 21:05 | MORECARE ---
CASE MANAGEMENT DISCHARGE SUMMARY PATIENT: KENNY JONES UNIT: [id number] ADM DATE: 05/01/18 AGE: 52 : 67 SEX: M ROOM/BED: D.2311 AUTHOR: MARGE,DOC PHYSICIAN: REFERRING PHYSICIAN: HANNAH HOBSON MD DATE OF SERVICE: 05/06/18 Discharge Plan Patient Name: KENNY JONES [facility] [facility] 1965 Planned Disposition: Home Anticipated Discharge Date: Discharge Date: Expected LOS: Initial Reviewer: [email or web address] Initial Review Date: 05/06/2018 Generated: 05/06/18 10:05 pm Comments DCP- Discharge Planning Updated by [email or web address]: Sonia Wyatt on 05/06/18 8:[address] Patient Name: KENNY JONES Admission Status: ER Accout number: [id number] Admission Date: 05-01-2018 : 1965 Admission Diagnosis:TOXIC ENCEPHALOPATHY Attending: HANNAH HOBSON Current LOS: 5 Anticipated DC Date: Planned Disposition: Home Primary Insurance: [facility] MEDICARE SOLUTIONS Discharge Planning Comments: CM met with patient at bedside after obtaining permission. Patient states he was living at home alone. Patient plans to return to his apartment upon discharge. Patient may need rehab before discharge. Patient denies any needs at this time. CM will continue to follow and assist with discharge planning / needs. Automotive Service Manager: Sonia Wyatt DCPIA - Discharge Planning Initial Assessment Updated by [email or web address]: Sonia Wyatt on 05/06/18 8:59 pm * Is the patient Alert and Oriented? Yes * How many steps to enter\exit or inside your home? * PCP Deirdre Rose * Pharmacy [facility] * Preadmission Environment Home Alone * ADLs Independent * Equipment None * List name and contact numbers for known caregivers / representatives who currently or will assist patient after discharge: Bryon Jones - Brother - [phone] * Verbal permission to speak to the caregivers and representatives has been obtained from the patient. N/A * Community resources currently utilized None * Additional services required to return to the preadmission environment? No * Can the patient safely return to the preadmission environment? Yes * Has this patient been hospitalized within the prior 30 days at any hospital? Yes Last DP export: 05/06/18 7:58 Patient Name: KENNY JONES Page 26635 at 2105 All edits/amendments must be made on the electronic document DICTATION DATE: 05/06/182104 STOPPER GRINDER: SPENCER 05/06/182104 RPT#: [id number] DC DATE: STATUS: ADM IN [facility] [address] [place] [address] END OF REPORT
--- NOTE | 2018-05-06 21:12 | MORECARE ---
CASE MANAGEMENT DISCHARGE SUMMARY PATIENT: KENNY JONES UNIT: [id number] ADM DATE: 05/01/18 AGE: 52 : 67 SEX: M ROOM/BED: D.2311 AUTHOR: MARGE,DOC PHYSICIAN: REFERRING PHYSICIAN: HANNAH HOBSON MD DATE OF SERVICE: 05/06/18 Discharge Plan Patient Name: KENNY JONES [facility] [facility] 1965 Planned Disposition: Home Anticipated Discharge Date: Discharge Date: Expected LOS: Initial Reviewer: [email or web address] Initial Review Date: 05/06/2018 Generated: 05/06/18 10:12 pm Comments DCP- Discharge Planning Updated by [id number]: Sonia Wyatt on 05/06/18 8:[address] Patient Name: KENNY JONES Admission Status: ER Accout number: [id number] Admission Date: 05-01-2018 : 1965 Admission Diagnosis:TOXIC ENCEPHALOPATHY Attending: HANNAH HOBSON Current LOS: 5 Anticipated DC Date: Planned Disposition: Home Primary Insurance: [facility] MEDICARE SOLUTIONS Discharge Planning Comments: CM met with patient at bedside after obtaining permission. Patient states he was living at home alone. Patient plans to return to his apartment upon discharge. Patient may need rehab before discharge. Patient denies any needs at this time. CM will continue to follow and assist with discharge planning / needs. Manganese Heater: Sonia Wyatt DCPIA - Discharge Planning Initial Assessment Updated by [email or web address]: Sonia Wyatt on 05/06/18 8:59 pm * Is the patient Alert and Oriented? Yes * How many steps to enter\exit or inside your home? * PCP Deirdre Rose * Pharmacy [facility] * Preadmission Environment Home Alone * ADLs Independent * Equipment None * List name and contact numbers for known caregivers / representatives who currently or will assist patient after discharge: Bryon Jones - Brother - [phone] * Verbal permission to speak to the caregivers and representatives has been obtained from the patient. N/A * Community resources currently utilized None * Additional services required to return to the preadmission environment? No * Can the patient safely return to the preadmission environment? Yes * Has this patient been hospitalized within the prior 30 days at any hospital? Yes Last DP export: 05/06/18 7:58 Patient Name: KENNY JONES Page 86588 at 2112 All edits/amendments must be made on the electronic document DICTATION DATE: 05/06/182110 WHITESMITH: SPENCER 05/06/182110 RPT#: [id number] DC DATE: STATUS: ADM IN [facility] [address] [place] [address] END OF REPORT
--- NOTE | 2018-05-06 23:00 | NUR ---
REASSESSMENT COMPLETE, PLEASE SEE FLOW SHEETS FOR DETAILS. NO ACUTE CHANGES FROM PREVIOUS ASSESSMENT TO NOTE. BM NOTED ATT, LITTLE ASSISTANCE NEEDED. 800 ML DIARRHEA OUT. GOWN CHANGE PROVIDED. VSS, BED LOW AND LOCKED, CALL LIGHT IN REACH. WILL CPOC.
[2018-05-07] VITALS (24 sets, daily range): BP systolic 125–153; BP diastolic 73–99
--- NOTE | 2018-05-07 01:00 | NUR ---
RESTING, WOKE EASILY, DENIES NEEDS. VSS, BED LOW AND LOCKED, CALL LIGHT IN REACH. WILL CPOC.
--- NOTE | 2018-05-07 03:00 | NUR ---
REASSESSMENT COMPLETE, PLEASE SEE FLOW SHEETS FOR DETAILS. NO ACUTE CHANGES FROM PREVIOUS ASSESSMENT TO NOTE. PATIENT DENIES NEEDS ATT. VSS, BED LOW AND LOCKED, CALL LIGHT IN REACH. WILL CPOC.
--- NOTE | 2018-05-07 05:00 | NUR ---
RESTING, VSS, BED LOW AND LOCKED, CALL LIGHT IN REACH. WILL CPOC.
[2018-05-07 05:46] LABS: BASOPHILS 0.2 % (0-2); EOSINOPHILS 2.2 % (0-7); HEMATOCRIT 22.6 % (42.0-54.0); HEMOGLOBIN 7.9 g/dL (13.5-17.5); IMMATURE GRANULOCYTES 6.5 % (0-5); LYMPHOCYTES 12.3 % (15-50); MCH 30.5 pg (26.0-34.0); MCV 87.3 fL (80.0-100.0); MEAN PLATELET VOLUME 9.1 fL (7.4-10.4); MONOCYTES 23.7 % (2-11); NEUTROPHILS 55.1 % (40-80); PLATELET COUNT 75 10x3/uL (130-400); RBC 2.59 10x6/uL (4.20-6.10); RDW 16.4 % (11.5-14.5); WBC 5.9 10x3/uL (4.8-10.8)
[2018-05-07 06:32] LABS: ALBUMIN 1.6 g/dL (3.4-5.0); ALKALINE PHOSPHATASE 52 U/L (46-116); ALT (SGPT) 70 U/L (10-68); BILIRUBIN - TOTAL 0.59 mg/dL (0.2-1.3); CALC OSMOLALITY 278 mosm/kg (275-300); CALCIUM 7.2 mg/dL (8.5-10.1); CARBON DIOXIDE 23.5 mmol/L (21.0-32.0); CHLORIDE - SERUM 94 mmol/L (98-107); CREATINE KINASE 5022 UL (21-232); CREATININE - SERUM 8.8 mg/dL (0.6-1.3); GLUCOSE 110 mg/dL (74-106); POTASSIUM - SERUM 3.6 mmol/L (3.5-5.1); PROTEIN - SERUM 4.7 g/dL (6.4-8.2); SODIUM 127 mmol/L (136-145); UREA NITROGEN 76 mg/dL (7-18); VANCOMYCIN - RANDOM 14.4 ug/mL (10.0-20.0); eGFR NON AFRICAN AMERICAN 7 mL/min (90-120)
[2018-05-07 06:44] LABS: PLATELET ESTIMATE DECREASED
[2018-05-07 08:32] LABS: CKMB 11.3 U/L (0.0-3.6)
--- NOTE | 2018-05-07 09:46 | NUR ---
WHEN ASSISTING LAB BY DRAWING BLOOD FROM CV[facility] FOR ORDERED LAB DRAW, PT STATED, "IF IT HURTS WHEN THEY DO DIALYSIS ON ME, I'M GOING TO PULL THE LINE OUT." NURSE EDUCATED PT THAT IF HE WERE TO PULL THE DIALYSIS LINE OUT IT COULD CAUSE HIM TO BLEED TO . PT STATED, "WELL I WANT TO ." NURSE ASKED PT IF HE MEANT WHAT HE STATED, PT STATED, "YES, I WANT TO ." NURSE ASKED PT IF HE HAD A PLAN, AND IF SO WHAT IS IT. PT STATED, "YES I DO, AND DON'T WORRY ABOUT WHAT IT IS, I AM MISERABLE, AND HAVE BEEN IN THE HOSPITAL FOR 12 DAYS NOW." PTS NURSE NOTIFIED OF THIS, AND EDGE GLUE MACHINE TENDER NOTIFIED OF THIS.
--- NOTE | 2018-05-07 10:26 | NUR ---
Torie FLORES WITH DR ALICIA OFFICE BY TO SEE PATIENT. WILL MAKE ORDERS FOR DAILY DRESSING CHANGE. DR LEI BY TO SEE PT. C/O CONSTIPATION. NEW ORDERS RECEIVED.
[2018-05-07 11:09] LABS: HEPATITIS C ANTIBODY >11.0 (0.0-0.9)
--- NOTE | 2018-05-07 13:06 | NUR ---
CONFIRMED WITH GEORGIE IN CARE THAT COPY OF REFERRAL FOR DR RODRÍGUEZ WAS RECEIVED
--- NOTE | 2018-05-07 13:23 | NUR ---
PT WANTING TO REFUSE DIALYSIS. EXPLAINED BENEFIT IF DIALYSIS AND NEED FOR 2 UNITS PRBC. PT AGREED THAT IF I GAVE HIM HIS PAIN MEDICATIONS HE WOULD ALLOW DIALYSIS LONG ENOUGH TO GET BLOOD. DILAUDID GIVEN. DIALYSIS NURSE AT BEDSIDE SETTING UP EQUIPMENT.
--- NOTE | 2018-05-07 14:31 | NUR ---
FIRST UNIT BLOOD OBTAINED AND STARTED ON DIALYSIS.
--- NOTE | 2018-05-07 14:49 | NUR ---
DR LARSON BY TO SPEAK WITH PATIENT.
--- NOTE | 2018-05-07 16:09 | NUR ---
UPDATED DR VELOZ ABOUT PT ABDOMENAL DISTENTION AND CONTINUED PAIN. ORDER RECEIVED FOR SIMETHICONE
--- NOTE | 2018-05-07 16:15 | NUR ---
DIALYSIS COMPLETE. 2PRBC HAVE BEEN GIVEN. 1L FLUID REMOVED. SESSION CUT SHORT BY JUST UNDER 30 MINUTES. PT ASKS FOR A FEW MINUTES REST BEFORE DRESSING CHANGE.
--- NOTE | 2018-05-07 17:37 | NUR ---
DRESSING TO RIGHT LEG HAS BEEN CHANGED. PT IN A LOT OF PAIN EVEN WITH ADMINISTERED DILAUDID. SITE HAD OLD CLOTS NOTED. FRESH BLOOD OOZING. WET TO DRY DRESSING WITH LOOSE GAUZE WRAP. NO ODOR NOTED. NO DISCHARGE.
--- NOTE | 2018-05-07 19:00 | NUR ---
REPORT RECIEVED, SHIFT ASSESSMENT COMPLETE, PLEASE SEE FLOW SHEETS FOR DETAILS. STATES PAIN 8/10 IN ABDOMEN AND RIGHT LEG. WILL GOVE PAIN MEDS PER ORDERS. DRESSING TO RIGHT LEG HAS BEEN CHANGED FROM PRIOR SHIFT, ++ DRAINING SEROUS FLUID, MAINLY BRIGHT RED. DR BARRIOS CAME INTO ROOM AND ASSESSED PATIENT. ORDERED FULL LIQUID DIET, OFFERED SNACKS TO PATIENT, THESE WERE ACCEPTED. BS HYPERACTIVE X4. RIGHT LEG WITH +4 PITTING EDEMA, MOVES EXTREMETY AND PULSE PALPABLE. ALL OTHER PPP. S1S2 HEARD, RRR ON CM. VSS, BED LOW AND LOCKED, CALL LIGHT IN REACH. WILL CPOC.
--- NOTE | 2018-05-07 21:00 | NUR ---
TOLERATED PO MEDS WELL AND SNACKS. ASKED FOR BEDPAN TO BE WITHIN REACH. THIS WAS PROVIDED. DENIES ANY OTHER NEEDS ATT. VSS, BED LOW AND LOCKED, CALL LIGHT IN REACH. WILL CPOC.
--- NOTE | 2018-05-07 21:30 | NUR ---
200 ML DIARRHEA OUT INTO BEDPAN. ASSITANCE WITH CLEANUP PROVIDED. TOLERATED WELL. C/O PAIN 10/10 IN LEG. WILL GIVE PAIN MEDS PER ORDERS. WILL CPOC.
--- NOTE | 2018-05-07 23:00 | NUR ---
REASSESSMENT COMPLETE, PLEASE SEE FLOW SHEETS FOR DETAILS. STATES PAIN NOW 5/10, IN LEG, MORE TOLERABLE. DENIES ANY OTHER NEEDS. BED LOW AND LOCKED, CALL LIGHT IN REACH. VSS, WILL CPOC.
[2018-05-08] VITALS (24 sets, daily range): BP systolic 106–161; BP diastolic 68–98
--- NOTE | 2018-05-08 01:00 | NUR ---
RESTING QUIETLY. VSS, BED LOW AND LOCKED, CALL LIGHT IN REACH. WILL CPOC.
--- NOTE | 2018-05-08 03:00 | NUR ---
REASSESSMENT COMPLETE, PLEASE SEE FLOW SHEETS FOR DETAILS. NO ACUTE CHANGES FROM PREVIOUS ASSESSMENT TO NOTE. C/O PAIN IN LEG 02/16, WILL GIVE PAIN MEDS PER ORDERS. DENIES ANY OTHER NEEDS ATT. VSS, BED LOW AND LOCKED, CALL LIGHT IN REACH, WILL CPOC.
[2018-05-08 03:51] LABS: BASOPHILS 0.4 % (0-2); EOSINOPHILS 2.2 % (0-7); IMMATURE GRANULOCYTES 4.6 % (0-5); LYMPHOCYTES 9.4 % (15-50); MCH 30.9 pg (26.0-34.0); MCHC 35.4 g/dL (31.0-37.0); MCV 87.5 fL (80.0-100.0); MEAN PLATELET VOLUME 9.2 fL (7.4-10.4); MONOCYTES 16.8 % (2-11); NEUTROPHILS 66.6 % (40-80); PLATELET COUNT 80 10x3/uL (130-400); RDW 15.6 % (11.5-14.5); WBC 6.8 10x3/uL (4.8-10.8)
[2018-05-08 04:03] LABS: HEMOGLOBIN 9.9 g/dL (13.5-17.5)
[2018-05-08 04:18] LABS: ANION GAP 14.1 mmol/L (8-16); CALCIUM 7.3 mg/dL (8.5-10.1); CARBON DIOXIDE 24.4 mmol/L (21.0-32.0); CREATININE - SERUM 8.1 mg/dL (0.6-1.3); POTASSIUM - SERUM 3.5 mmol/L (3.5-5.1); VANCOMYCIN - RANDOM 17.1 ug/mL (10.0-20.0)
--- NOTE | 2018-05-08 05:00 | NUR ---
RESTING, VSS, BED LOW AND LOCKED, CALL LIGHT IN REACH. WILL CPOC.
--- NOTE | 2018-05-08 08:23 | NUR ---
0700 PT RECIEVED ALERT AN DORIENTED ON ROOM AIR R IJ TRIALYSIS AND CVL DRESSING CDI, SALINE LOCKED, R CHEST DRESSING FROM PREVIOUS CT CDI, CASTRO DRAINING, R THIGH DRESSING INTACT WITH SANGUINOUS DRAINAGE, PULSES PALPABLE 0800 PT GIVEN FULL LIQUID TRAY AND TOLERATED WELL 0820 AM MEDS GIVEN, PT REFUSED AMITIZA STATED IT MAKES HIM SICK TO HIS STOMACH
--- NOTE | 2018-05-08 10:33 | NUR ---
CONSENTS SIGNED FOR BLOOD ANESTHESIA AND PROCEDURE TOMORROW
--- NOTE | 2018-05-08 11:10 | NUR ---
R THIGH DRESSING CHANGED PER ORDERS
--- NOTE | 2018-05-08 11:13 | CN ---
PATIENT NAME:KENNY JONES MEDICAL RECORD: [id number] : 67 LOCATION:GABRIEL.[id number] ADMIT DATE: 05/01/18 ACCOUNT: [id number] CONSULTING PHYSICIAN: YFN LARSON MD REFERRING PHYSICIAN: HANNAH HOBSON MD DATE OF CONSULTATION: 05/07/2018 PSYCHIATRIC CONSULTATION IDENTIFYING DATA: The patient is 52 years old and he is admitted to the hospital on a voluntary basis. CHIEF COMPLAINT: Acute renal injury. HISTORY OF PRESENT ILLNESS: The patient was found by the dtp operator about 10 days ago. Apparently, he had been drinking too much and lying on the floor. He has developed rhabdomyolysis and acute renal failure. He is currently not in any danger of alcohol withdrawal. He does have a pretty extensive psychiatric history along with history of hepatitis C. He was frustrated with the dialysis, saying he hurts and he made some statements about wanting to kill himself and having a plan to do so and would not retract those. Today, he does retract him. He is endorsing a lot of depressive symptoms. He feels very frustrated, helpless, and hopeless, but he says he is not going to kill himself. He says he was just angry, and in the context within which he is speaking, it sounds reasonable and convincing. Furthermore, he is fully lucid, completely oriented, has depressed mood, and has no history of wanting to hurt himself in the past. He denies psychotic symptoms. He does not want to go to any kind of alcohol rehab program nor does he even want to attend outpatient AA saying that he has done both of those things and does not think it is helpful. Furthermore, he says that the current circumstances have frightened him so much that he is not going to drink again. ASSESSMENT: 1. Alcohol abuse. 2. Major depression. PLAN: At this time, the patient is seeing an outpatient psychiatrist and therapist at [facility]. He should continue to take his current psychiatric medications and have follow up with that facility. I do not view him as acutely dangerous. I believe him when he tells me he is just angry, upset, and frustrated. It is a favorable prognostic sign that he has never been hospitalized for psychiatric reasons and has never attempted to harm himself. It is a negative prognostic factor that he is male, alone, and has a very poor support system. Nevertheless, weighing the circumstances, I think he is currently safe and that his long-term prognosis will be contingent upon him abstaining from alcohol and following up with his mental health treatment plan. TRANSINT:[id number] Voice Confirmation ID: [id number] DOCUMENT ID: [id number] CONSULT REPORT [id number] KENNY JONES PETER MD at 1113 CC: [id number] DICTATION DATE: 05/07/18 1453 [address] COMMERCE PROJECT MANAGER: 05/07/181930 ADM IN [facility] [address] [place] [id number]
--- NOTE | 2018-05-08 17:34 | NUR ---
1300 pt repositioned, PADS UNDER LEG CHANGED 1500 REPSOTIONED, DENIES NEEDS, CALL LIGHT AND FLUIDS WITHUIN REACH 1600 40ML OUT OF CASTRO FOR SHIFT TOTAL 1700 ATE 25% DINNER
--- NOTE | 2018-05-08 19:30 | NUR ---
REPORT RECEIVED, INITIAL ASSSESSMENT COMPLETED PER FLOW SHEET, PT AAOx4, C/O ABDOMEN PAIN, REPOSITIONED PAIN DECREASED, VSS, WILL CONTINUE TO ASSESS
--- NOTE | 2018-05-08 21:00 | NUR ---
PT AAOX4, STATED DECREASE IN PAIN WITH THE MEDICATION, REPOSITIONED, GACVE 1 CUP H20, DENIES NEEDS AT THIS TIME, VSS, WILL CONTINUE TO ASSESS
--- NOTE | 2018-05-08 23:00 | NUR ---
REASSESSMENT COMPLETED PER FLOW SHEET, PT AAOX4, DRESSING CHANGED PER ORDERS, PT TOLLERATED PROCEDURE WELL, NO ACUTE DISTRESS NOTED, VSS, WILL CONTINUE TO ASSESS
[2018-05-09] VITALS (21 sets, daily range): BP systolic 130–161; BP diastolic 90–102
--- NOTE | 2018-05-09 03:00 | NUR ---
REASSESSMENT COMPLETED PER FLOW SHEET, PT RESTING IN BED, NO ACUTE CHANGES NOTED, REPOSITIONED, VSS, WILL CONTINUE TO ASSESS
--- NOTE | 2018-05-09 05:00 | NUR ---
BED BATH AND LINEN CHANGE COMPLETED, CHLORHEXIDINE SKIN PREPARATION COMPLETED WITH PT ASSIST, REPOSITIONED PT WITH HELP FROM OTHER RN LOBO, PT ANNE;LERATED MOVEMENT, REPLACED TRIALYSIS CATH DRESSING, VSS, WILL CONTINUE TO MONITOR
[2018-05-09 05:05] LABS: BASOPHILS 0.5 % (0-2); EOSINOPHILS 2.3 % (0-7); HEMATOCRIT 28.3 % (42.0-54.0); IMMATURE GRANULOCYTES 5.1 % (0-5); LYMPHOCYTES 12.5 % (15-50); MCH 30.7 pg (26.0-34.0); MCHC 35.3 g/dL (31.0-37.0); MCV 86.8 fL (80.0-100.0); MEAN PLATELET VOLUME 9.4 fL (7.4-10.4); MONOCYTES 13.1 % (2-11); NEUTROPHILS 66.5 % (40-80); PLATELET COUNT 85 10x3/uL (130-400); RBC 3.26 10x6/uL (4.20-6.10); RDW 15.5 % (11.5-14.5); WBC 8.4 10x3/uL (4.8-10.8)
[2018-05-09 06:11] LABS: ALBUMIN 1.7 g/dL (3.4-5.0); ANION GAP 17.6 mmol/L (8-16); BILIRUBIN - DIRECT 0.25 mg/dL (0.00-0.30); BILIRUBIN - INDIRECT 0.42 mg/dL (0.00-1.00); BILIRUBIN - TOTAL 0.67 mg/dL (0.2-1.3); CALCIUM 7.5 mg/dL (8.5-10.1); CREATININE - SERUM 10.1 mg/dL (0.6-1.3); POTASSIUM - SERUM 3.6 mmol/L (3.5-5.1); PROTEIN - SERUM 4.5 g/dL (6.4-8.2); VANCOMYCIN - RANDOM 13.9 ug/mL (10.0-20.0)
--- NOTE | 2018-05-09 07:00 | NUR ---
SHIFT ASSESSMENT COMPLETED. PT CARE ASSUMED. MONITORS ON AND WORKING, VITALS STABLE. PT AWAKE AND ALERT. DRESSING TO RIGHT THIGH CDI. CALL LIGHT WITHIN REACH. WILL CONTINUE TO OBSERVE.
--- NOTE | 2018-05-09 07:49 | NUR ---
VANCOMYCIN 500 MG ONCE ORDERED FOR 05/09/19 DUE TO CLEARANCE, THIS WILL BE THE FINAL DOSE X7 DAYS OF VANCOMYCIN THERAPY COMPLETE 05/10/18 PLEASE REORDER IF EXTENDED DURATION IN NEEDED THANK YOU FOR THE CONSULT!
--- NOTE | 2018-05-09 09:00 | NUR ---
PT PREOP'D PER OR, PT AWAKE AND ALERT. NO SIGNS/SYMPTOMS OF PAIN OR DISTRESS NOTED AT THIS TIME. WILL CONTINUE TO OBSERVE.
--- NOTE | 2018-05-09 11:00 | NUR ---
NO CHANGES, PT AWAKE AND ALERT, BANDAGE CDI. MONITORS ON AND WORKING. VITALS STABLE. SEE FLOW SHEET FOR FURTHER DETAILS. WILL CONTINUE TO OBSERVE.
--- NOTE | 2018-05-09 13:00 | NUR ---
PT CURRENTLY IN OR FOR I AND D AND CLOSURE OF FASCIOTOMY.
--- NOTE | 2018-05-09 13:23 | NUR ---
Nutrition Follow Up: Chart reviewed. Pt is NPO at this time for surgery today. Pt previously on Renal diet with very poor po intake (4% meal avg). BM: 05/08/18 No new wt to assess I>O Labs and meds noted Rec resuming diet when medically feasible. Rec consider an appetite stimulant. Rec Carl BID to promote wound healing. RD following.
--- NOTE | 2018-05-09 15:00 | NUR ---
PT IN OR.
--- NOTE | 2018-05-09 16:10 | NUR ---
PT BACK FROM OR, MONITORS ON AND WORKING. VITALS STABLE, PT AWAKE AND ALERT, CLEAR LIQUID DIET STARTED. RIGHT THIGH DRESSING CDI. CALL LIGHT WITHIN REACH. WILL CONTINUE TO OBSERVE.
--- NOTE | 2018-05-09 17:00 | NUR ---
PT SITTING UP IN BED, MONITORS ON AND WORKING VITALS STABLE. CALL LIGHT WITHIN REACH. WILL CONTINUE TO OBSERVE.
--- NOTE | 2018-05-09 18:30 | NUR ---
PT CLEANED AND LINEN CHANGED FROM LARGE BM, PT SITTING UP IN BED, CALL LIGHT WTIHIN REACH, WILL CONTINUE TO OBSERVE.
--- NOTE | 2018-05-09 22:04 | NUR ---
PT HAD X1BM, SELF CLEANED BUT DIDNT NOTIFY RN, THREW WIPES ON FLOOR UNDER BED, REINFORCED TEACHING ON NEED TO NOTIFY RN TO ASSIST FULLY CLEANING SUSHMA AREA TO PREVENT SKIN BREAKDOWN AND INFECTION, PT VERBALIZED UNDERSTANDING, WILL CONTINUE TO ASSESS
--- NOTE | 2018-05-09 23:45 | NUR ---
PT HAD SMALL SEMI-SOLID BROWN BM, PT STATED HE DIDNT KNOW IT WAS GOING TO HAPPEN UNTIL RIGHT BEFORE THE BM, REPLACED SUSHMA PAD, SUSHMA CARE AND CASTRO CARE COMPLETED, VSS, WILL CONTINUE TO ASSESS
[2018-05-10] VITALS (16 sets, daily range): BP systolic 140–173; BP diastolic 66–100
[2018-05-10 05:36] LABS: BASOPHILS 0.3 % (0-2); EOSINOPHILS 2.5 % (0-7); HEMOGLOBIN 9.5 g/dL (13.5-17.5); IMMATURE GRANULOCYTES 3.1 % (0-5); LYMPHOCYTES 10.7 % (15-50); MCH 31.5 pg (26.0-34.0); MCHC 36.5 g/dL (31.0-37.0); MCV 86.1 fL (80.0-100.0); MEAN PLATELET VOLUME 9.9 fL (7.4-10.4); MONOCYTES 9.7 % (2-11); NEUTROPHILS 73.7 % (40-80); RBC 3.02 10x6/uL (4.20-6.10); RDW 15.3 % (11.5-14.5); WBC 9.4 10x3/uL (4.8-10.8)
[2018-05-10 05:40] LABS: PLATELET COUNT 103 10x3/uL (130-400)
[2018-05-10 06:17] LABS: CALC OSMOLALITY 281 mosm/kg (275-300); CALCIUM 7.8 mg/dL (8.5-10.1); CARBON DIOXIDE 20.5 mmol/L (21.0-32.0); CHLORIDE - SERUM 92 mmol/L (98-107); CREATININE - SERUM 11.6 mg/dL (0.6-1.3); GLUCOSE 102 mg/dL (74-106); PHOSPHOROUS 7.4 mg/dL (2.5-4.9); POTASSIUM - SERUM 3.6 mmol/L (3.5-5.1); SODIUM 126 mmol/L (136-145); UREA NITROGEN 93 mg/dL (7-18); eGFR NON AFRICAN AMERICAN 5 mL/min (90-120)
[2018-05-10 06:18] LABS: CREATINE KINASE 960 UL (21-232)
[2018-05-10 06:44] LABS: CKMB 5.3 U/L (0.0-3.6)
--- NOTE | 2018-05-10 07:17 | NUR ---
PATIENT RESTING IN BED C NORMAL RESPIRATIONS AND STABLE VITAL SIGNS. AWAKE ALERT AND ORIENTED. CALL REYNA IN REACH. WILL CONTINUE TO MONITOR.
--- NOTE | 2018-05-10 09:00 | NUR ---
PATIENT RESTING IN BED C CALL REYNA IN REACH. AWAKE ALERT AND ORIENTED. VSS. WILL CONTINUE TO MONITOR
--- NOTE | 2018-05-10 11:53 | NUR ---
BROUGHT LUNCH TRAY. PATIENT AWAKE, ALERT, AND ORIENTED.
--- NOTE | 2018-05-10 15:00 | NUR ---
REPORT GIVEN TO MED 2 NURSE.
--- NOTE | 2018-05-10 15:01 | NUR ---
CLEANED CHANGED AND PULLED UP PATIENT IN BED. TURNED TO LEFT SIDE. CALL REYNA IN REACH. ALL BUT BOTTOM SHEET CHANGED. PATIENT AWAKE ALERT AND ORIENTED. VSS. WILL CONTINUE TO MONITOR
--- NOTE | 2018-05-10 15:37 | NUR ---
CENTRAL LINE TO RIGHT IJ AND TRIALYSIS CATHETER TO RIGHT IJ BOTH CHANGED TODAY.
--- NOTE | 2018-05-10 16:05 | NUR ---
TRANSFERRED PATIENT TO 2107. KIMBERLYN ALEXANDER RECEIVED. PATIENT IN STABLE CONDITION. EXPLAINED TO NURSE SITUATION WITH PATIENTS DOG.
--- NOTE | 2018-05-10 16:08 | NUR ---
RECEIVED PT FROM ICU. PT IS BEDFAST AAO X4. PT CURRENTLY LYING SUPINE. CALL LIGHT W/I REACH. RR EVEN AND UNLABORED ON RA. CASTRO IN PLACE. STATLOCK IN PLACE. DRESSING TO RIGHT LEG IN PLACE. WHEN QUESTIONED ABOUT PAIN MEDICATION, ICU NURSE REPORTED "HE GETS DILUADID AND NORCO'S EVERY SIX HOURS AND COLE BEEN GIVING THEM TOGETHER." PT DENIES ANY NEEDS AT THIS TIME. WILL CTM.
--- NOTE | 2018-05-10 18:00 | NUR ---
PT LYING SEMI FOWLERS. CALL LIGHT W/I REACH. CURRENTLY EATING DINNER. AAO. RR EVEN AND UNLABORED ON RA. PT COMPLAINED OF PAIN IN LEG AND N/V. ADMINISTERED ORDERED DOSE OF NORCO. PT DENIES ANY FURTHER NEEDS. WILL CTM.
--- NOTE | 2018-05-10 19:32 | NUR ---
IN BED DRESSING TO RIGHT SHELLY CDI , DRESSING TO RIGHT LEG CDI, SOME SWELLING NOTED TO RIGHT FOOT PULSES NOTED. STATED HE HAD TX FOR HEP C AND WAS TOLD HE WAS CLEARED.
[2018-05-11 00:55] VITALS: BP 149/91
[2018-05-11 04:00] VITALS: BP 178/69
[2018-05-11 06:20] LABS: ALBUMIN 1.6 g/dL (3.4-5.0); ALKALINE PHOSPHATASE 72 U/L (46-116); BILIRUBIN - DIRECT 0.18 mg/dL (0.00-0.30); BILIRUBIN - INDIRECT 0.27 mg/dL (0.00-1.00); BILIRUBIN - TOTAL 0.45 mg/dL (0.2-1.3); CALC OSMOLALITY 284 mosm/kg (275-300); CALCIUM 7.4 mg/dL (8.5-10.1); CARBON DIOXIDE 18.7 mmol/L (21.0-32.0); CHLORIDE - SERUM 90 mmol/L (98-107); CREATININE - SERUM 12.9 mg/dL (0.6-1.3); GLUCOSE 96 mg/dL (74-106); POTASSIUM - SERUM 3.6 mmol/L (3.5-5.1); PROTEIN - SERUM 4.9 g/dL (6.4-8.2); SODIUM 125 mmol/L (136-145); UREA NITROGEN 106 mg/dL (7-18); eGFR NON AFRICAN AMERICAN 4 mL/min (90-120)
[2018-05-11 06:21] LABS: ALT (SGPT) 31 U/L (10-68); CREATINE KINASE 527 UL (21-232)
[2018-05-11 06:24] LABS: CKMB 5.1 U/L (0.0-3.6)
[2018-05-11 07:29] LABS: BASOPHILS 0.4 % (0-2); EOSINOPHILS 2.5 % (0-7); HEMATOCRIT 24.5 % (42.0-54.0); HEMOGLOBIN 8.7 g/dL (13.5-17.5); IMMATURE GRANULOCYTES 2.6 % (0-5); LYMPHOCYTES 9.3 % (15-50); MCH 30.6 pg (26.0-34.0); MCHC 35.5 g/dL (31.0-37.0); MCV 86.3 fL (80.0-100.0); MEAN PLATELET VOLUME 10.2 fL (7.4-10.4); MONOCYTES 10.9 % (2-11); NEUTROPHILS 74.3 % (40-80); PLATELET COUNT 126 10x3/uL (130-400); RBC 2.84 10x6/uL (4.20-6.10); RDW 15.3 % (11.5-14.5); WBC 9.3 10x3/uL (4.8-10.8)
[2018-05-11 07:52] VITALS: BP 154/91
--- NOTE | 2018-05-11 07:55 | NUR ---
PATIENT ROUNDING COMPLETED AT THIS TIME. CALL LIGHT IN REACH. BED IN LOWEST POSITION.
--- NOTE | 2018-05-11 11:21 | NUR ---
PATIENT IS OFF FLOOR AT THIS TIME. PATIENT TAKEN BY BED TO DIALYSIS AT THIS TIME.
[2018-05-11 11:34] VITALS: BP 153/99
--- NOTE | 2018-05-11 12:08 | NUR ---
SCHEDULED ATIVAN GIVEN IN DAILYSIS AT REQUEST OF PATIENT AND TECH. PATIENT IS UNABLE TO GET ANY OTHER PAIN MEDICATION TILL 1430
[2018-05-11 13:11] LABS: SMOOTH MUSCLE ABS (ACTIN) 5 Units (0-19)
--- NOTE | 2018-05-11 14:27 | NUR ---
PATIENT RETURNED TO FLOOR VIA BED BY TWO BOARD DESIGN ENGINEER'S. DENIES ANY NEEDS AT THIS TIME.
[2018-05-11 15:57] VITALS: BP 137/89
[2018-05-11 20:00] VITALS: BP 142/95
--- NOTE | 2018-05-11 20:10 | NUR ---
RESUMING PT CARE, PT IS LAYING IN BED WITH EYES CLOSED, RESPIRATIONS EVEN AND UNLABORED, CALL LIGHT IN REACH. WILL CONTINUE TO MONITOR AND FOLLOW PLAN OF CARE.
[2018-05-12] VITALS: BP 147/94
[2018-05-12 04:00] VITALS: BP 149/91
[2018-05-12 05:58] LABS: BASOPHILS 0.5 % (0-2); EOSINOPHILS 2.2 % (0-7); HEMATOCRIT 24.4 % (42.0-54.0); HEMOGLOBIN 8.7 g/dL (13.5-17.5); IMMATURE GRANULOCYTES 1.5 % (0-5); LYMPHOCYTES 9.3 % (15-50); MCH 30.9 pg (26.0-34.0); MCHC 35.7 g/dL (31.0-37.0); MCV 86.5 fL (80.0-100.0); MEAN PLATELET VOLUME 9.8 fL (7.4-10.4); MONOCYTES 9.5 % (2-11); PLATELET COUNT 143 10x3/uL (130-400); RBC 2.82 10x6/uL (4.20-6.10); RDW 15.2 % (11.5-14.5); WBC 8.5 10x3/uL (4.8-10.8)
[2018-05-12 06:22] LABS: ANION GAP 17.3 mmol/L (8-16); CALCIUM 7.9 mg/dL (8.5-10.1); CARBON DIOXIDE 23.2 mmol/L (21.0-32.0); CREATININE - SERUM 11.3 mg/dL (0.6-1.3); POTASSIUM - SERUM 3.5 mmol/L (3.5-5.1)
[2018-05-12 09:18] VITALS: BP 139/95
--- NOTE | 2018-05-12 10:00 | NUR ---
RESTING QUIETLY NAD NOTED
--- NOTE | 2018-05-12 10:34 | NUR ---
PT TAKEN TO DIALYSIS VIA BED.
--- NOTE | 2018-05-12 12:06 | MORECARE ---
CASE MANAGEMENT DISCHARGE SUMMARY PATIENT: KENNY JONES UNIT: [id number] ADM DATE: 05/01/18 AGE: 52 : 67 SEX: M ROOM/BED: D.2100 AUTHOR: GEORGE BIRD PHYSICIAN: REFERRING PHYSICIAN: HANNAH HOBSON MD DATE OF SERVICE: 05/12/18 Discharge Plan Patient Name: KENNY JONES [facility] : 1965 Planned Disposition: Home Anticipated Discharge Date: Discharge Date: Expected LOS: Initial Reviewer: [email or web address] Initial Review Date: 05/06/2018 Generated: 05/12/18 1:06 pm Comments DCP- Discharge Planning Updated by [email or web address]: Markie Burnette on 05/12/18 11:[address] Patient Name: KENNY JONES Encounter No: [id number] : 1965 Primary Insurance: [facility] MEDICARE SOLUTIONS Anticipated DC Date: Planned Disposition: Home DCP follow-up note: CM RECEIVED ORDER FOR OUTPATIENT DIALYSIS AND POSSIBLE REHAB PLACEMENT NEEDS. RN CM HOUSE NOTIFED KENYATTA OF PATIENT [facility] FOR NEW DAILYSIS CLINIC ARRANGEMENT. CM ATTEMPTED TO MEET WITH PT FOR INITIAL ASSESSMENT OF DISCHARGE NEEDS. PT WAS NOT IN ROOM AT APPROXIMATELY [id number] HOURS. CM TO ATTEMPT ASSESSMENT OF PT AT A LATER TIME. DIOR Ocampo DCP- Discharge Planning Updated by [email or web address]: Sonia Wyatt on 05/06/18 8:[address] Patient Name: KENNY JONES Admission Status: ER Accout number: [id number] Admission Date: 05-01-2018 : 1965 Admission Diagnosis:TOXIC ENCEPHALOPATHY Attending: HANNAH HOBSON Current LOS: 5 Anticipated DC Date: Planned Disposition: Home Primary Insurance: [facility] MEDICARE SOLUTIONS Discharge Planning Comments: CM met with patient at bedside after obtaining permission. Patient states he was living at home alone. Patient plans to return to his apartment upon discharge. Patient may need rehab before discharge. Patient denies any needs at this time. CM will continue to follow and assist with discharge planning / needs. Supervisor Sunglasses: Sonia Wyatt DCPIA - Discharge Planning Initial Assessment Updated by [email or web address]: Sonia Wyatt on 05/06/18 8:59 pm * Is the patient Alert and Oriented? Yes * How many steps to enter\exit or inside your home? * PCP Deirdre Rose * Pharmacy [facility] * Preadmission Environment Home Alone * ADLs Independent * Equipment None * List name and contact numbers for known caregivers / representatives who currently or will assist patient after discharge: Bryon Jones - Brother - [phone] * Verbal permission to speak to the caregivers and representatives has been obtained from the patient. N/A * Community resources currently utilized None * Additional services required to return to the preadmission environment? No * Can the patient safely return to the preadmission environment? Yes * Has this patient been hospitalized within the prior 30 days at any hospital? Yes Last DP export: 05/06/18 8:12 Patient Name: KENNY JONES Page [id number] at 1206 All edits/amendments must be made on the electronic document DICTATION DATE: 05/12/181204 SHUTDOWN PLANNER: SPENCER 05/12/181204 RPT#: [id number] DC DATE: STATUS: ADM IN [facility] [address] [place] [address] END OF REPORT
--- NOTE | 2018-05-12 12:56 | NUR ---
DIALYSIS NURSE STATES SHE TOOK OFF 1L AND SHE STATES DR. SEGUNDO STATED TO HER PT WILL NOT NEED TO GO FOR DIALYSIS TOMORROW EVEN THOUGH HE'S BEEN GOING DAILY. PT RETURNED TO FLOOR VIA BED. ALERT AND ORIENTED. EATING LUNCH. NO FURTHER NEEDS AT THIS TIME. BED LOW. CL IN REACH.
--- NOTE | 2018-05-12 13:28 | NUR ---
LEONOR BAR APN PT IS TO NO LONGER HAVE ANY COKES EVEN HTOUGH HIS DIET IS REGULAR.
--- NOTE | 2018-05-12 14:02 | NUR ---
Nutrition follow-up: Diet: Regular due to poor po intake PO intake now ~50% average of meals PO4 extremely high; no more ezequiel per renal All labs reviewed Wt: 230# +BM RDN following.
--- NOTE | 2018-05-12 15:00 | NUR ---
PHYSICAL THERAPY IN ROOM WORKING WITH PT.
[2018-05-12 15:02] VITALS: BP 138/62
--- NOTE | 2018-05-12 15:19 | NUR ---
PT STATE SHE IS FEELING NAUSEAUS. ZOFRAN GIVEN. WILL OCNTNUE TO MONITOR.
--- NOTE | 2018-05-12 16:38 | NUR ---
RIGHT THIGH DRESSING CHANGED PER ORDERS.
--- NOTE | 2018-05-12 16:42 | MORECARE ---
CASE MANAGEMENT DISCHARGE SUMMARY PATIENT: KNENY JONES UNIT: [id number] ADM DATE: 05/01/18 AGE: 52 : 67 SEX: M ROOM/BED: D.2104 AUTHOR: MARGEDOC PHYSICIAN: REFERRING PHYSICIAN: HANNAH HOBSON MD DATE OF SERVICE: 05/12/18 Discharge Plan Patient Name: KENNY JONES Facility: [facility]:[place] : 1965 Planned Disposition: Mcfp Facility Anticipated Discharge Date: Discharge Date: Expected LOS: Initial Reviewer: [id number] Initial Review Date: 05/06/2018 Generated: 05/12/18 5:42 pm Comments DCP- Discharge Planning Updated by [id number]: Markie Burnette on 05/12/18 11:[address] Patient Name: KENNY JONES Encounter No: [id number] : 1965 Primary Insurance: C MEDICARE SOLUTIONS Anticipated DC Date: Planned Disposition: Home DCP follow-up note: CM RECEIVED ORDER FOR OUTPATIENT DIALYSIS AND POSSIBLE REHAB PLACEMENT NEEDS. RN CM HOUSE NOTIFED KENYATTA OF [facility] FOR NEW DAILYSIS CLINIC ARRANGEMENT. CM ATTEMPTED TO MEET WITH PT FOR INITIAL ASSESSMENT OF DISCHARGE NEEDS. PT WAS NOT IN ROOM AT APPROXIMATELY [address] HOURS. CM TO ATTEMPT ASSESSMENT OF PT AT A LATER TIME. DIOR Ocampo DCP- Discharge Planning Updated by [id number]: Sonia Wyatt on 05/06/18 8:[address] Patient Name: KENNY JONES Admission Status: ER Accout number: [id number] Admission Date: 05-01-2018 : 1965 Admission Diagnosis:TOXIC ENCEPHALOPATHY Attending: HANNAH HOBSON Current LOS: 5 Anticipated DC Date: Planned Disposition: Home Primary Insurance: C MEDICARE SOLUTIONS Discharge Planning Comments: CM met with patient at bedside after obtaining permission. Patient states he was living at home alone. Patient plans to return to his apartment upon discharge. Patient may need rehab before discharge. Patient denies any needs at this time. CM will continue to follow and assist with discharge planning / needs. Commercial Escrow Assistant: Sonia Wyatt DCPIA - Discharge Planning Initial Assessment Updated by [id number]: Sonia Wyatt on 05/06/18 8:59 pm * Is the patient Alert and Oriented? Yes * How many steps to enter\exit or inside your home? * PCP Deirdre Rose * Pharmacy [facility] * Preadmission Environment Home Alone * ADLs Independent * Equipment None * List name and contact numbers for known caregivers / representatives who currently or will assist patient after discharge: Bryon Jones - Brother - [phone] * Verbal permission to speak to the caregivers and representatives has been obtained from the patient. N/A * Community resources currently utilized None * Additional services required to return to the preadmission environment? No * Can the patient safely return to the preadmission environment? Yes * Has this patient been hospitalized within the prior 30 days at any hospital? Yes External Providers External Provider: [facility] Next Contact Date: 05/13/2018 Service Request Date: Service Type: Resolution: Reviewer: Comments: Last DP export: 05/12/18 11:06 am Patient Name: KENNY JONES Page 50588 at 1642 All edits/amendments must be made on the electronic document DICTATION DATE: 05/12/181641 BALL MAKER: SPENCER 05/12/181641 RPT#: [id number] DC DATE: STATUS: ADM IN [facility] [address] [place] [address] END OF REPORT
--- NOTE | 2018-05-12 17:10 | MORECARE ---
CASE MANAGEMENT DISCHARGE SUMMARY PATIENT: KENNY JONES UNIT: [id number] ADM DATE: 05/01/18 AGE: 52 : 67 SEX: M ROOM/BED: D.2233 AUTHOR: MARGE,DOC PHYSICIAN: REFERRING PHYSICIAN: HANNAH HOBSON MD DATE OF SERVICE: 05/12/18 Discharge Plan Patient Name: KENNY JONES Facility: [facility]:[place] : 1965 Planned Disposition: Retirement Facility Anticipated Discharge Date: Discharge Date: Expected LOS: Initial Reviewer: [id number] Initial Review Date: 05/06/2018 Generated: 05/12/18 6:10 pm Comments DCP- Discharge Planning Updated by [email or web address]: Markie Burnette on 05/12/18 4:[address] Patient Name: KENNY JONES Encounter No: [id number] : 1965 Primary Insurance: [facility] MEDICARE SOLUTIONS Anticipated DC Date: Planned Disposition: Retirement Facility External Planned Provider: [facility], MEDICARE REHAB BED DCP follow-up note: CM MET WITH PT IN ROOM TO DISCUSS DISCHARGE PLANNING AND NEEDS. PT REPORTS HE CANNOT GO HOME ALONE LIKE THIS AND NEEDS REHAB FIRST. CM DISCUSSED REHAB OPTIONS AND LOCATIONS. PT DOES NOT WANT ESTATE ATTORNEY CARE AND ASKED FOR [facility] FOR REHAB SERVICES. CHOICE LETTER SIGNED FOR [facility]. CM ADVISED PT THAT KENYATTA CHRISTOPHER OF [facility] WOULD BE IN CONTACT WITH PT REGARDING OUTPATIENT DIALYSIS CLINIC ARRANGEMENTS. PT REPORTS LIVING IN [place] AND HOPES TO BE INDEPENDENT AND RIDING HIS SCOOTER FOR TRANSPORT AFTER REHAB IS COMPLETED. PT REPORTS HIS BROTHER IS ASSISTING WITH CARING FOR PT'S DOG AT HOME AND PAYING PT'S BILLS WITH PT'S CHECK WHILE PT IS IN THE HOSPITAL. PT IS NOT ELIGIBLE FOR FREE TRANSPORT WITH MEDICAID TRANSPORTATION HE IS "QMB" ONLY. CM FAXED REFERRAL TO [facility] VIA [facility] AT [phone]. CM WAITING ADMISSION DETERMINATION FROM [facility] FOR REHAB, INSURANCE AUTHORIZATION FOR REHAB SERVICES FROM PT'S INSURANCE AND OUTPATIENT DIALYSIS CLINIC ARRANGEMENT BY [facility] COORDINATOR. Markie Burnette CASE MANAGEMENT DCP- Discharge Planning Updated by [id number]: Markie Burnette on 05/12/18 11:[address] Patient Name: KENNY JONES Encounter No: [id number] : 1965 Primary Insurance: [facility] MEDICARE SOLUTIONS Anticipated DC Date: Planned Disposition: Home DCP follow-up note: CM RECEIVED ORDER FOR OUTPATIENT DIALYSIS AND POSSIBLE REHAB PLACEMENT NEEDS. RN CM HOUSE NOTIFED KENYATTA OF [facility] FOR NEW DAILYSIS CLINIC ARRANGEMENT. CM ATTEMPTED TO MEET WITH PT FOR INITIAL ASSESSMENT OF DISCHARGE NEEDS. PT WAS NOT IN ROOM AT APPROXIMATELY [address] HOURS. CM TO ATTEMPT ASSESSMENT OF PT AT A LATER TIME. Markie Burnette, CASE MANAGEMENT DCP- Discharge Planning Updated by [id number]: Sonia Wyatt on 05/06/18 8:[address] Patient Name: KENNY JONES Admission Status: ER Accout number: [id number] Admission Date: 05-01-2018 : 1965 Admission Diagnosis:TOXIC ENCEPHALOPATHY Attending: HANNAH HOBSON Current LOS: 5 Anticipated DC Date: Planned Disposition: Home Primary Insurance: [facility] MEDICARE SOLUTIONS Discharge Planning Comments: CM met with patient at bedside after obtaining permission. Patient states he was living at home alone. Patient plans to return to his apartment upon discharge. Patient may need rehab before discharge. Patient denies any needs at this time. CM will continue to follow and assist with discharge planning / needs. Engine Turner: Sonia Wyatt DCPIA - Discharge Planning Initial Assessment Updated by [id number]: Sonia Wyatt on 05/06/18 8:59 pm * Is the patient Alert and Oriented? Yes * How many steps to enter\\exit or inside your home? * PCP Deirdre Rose * Pharmacy [facility] * Preadmission Environment Home Alone * ADLs Independent * Equipment None * List name and contact numbers for known caregivers / representatives who currently or will assist patient after discharge: Bryon Jones - Brother - [phone] * Verbal permission to speak to the caregivers and representatives has been obtained from the patient. N/A * Community resources currently utilized None * Additional services required to return to the preadmission environment? No * Can the patient safely return to the preadmission environment? Yes * Has this patient been hospitalized within the prior 30 days at any hospital? Yes Coverage Notice Reviewer: [id number] - Markie Burnette Notice Issued Date-Time: 05/12/2018 13:25 Notice Type: Patient Choice Letter Notice Delivered To: Patient Relationship to Patient: Furnishings Conservator Name: Delivery Method: HAND - Hand Delivered Sagrario Days: Prior Verbal Notification: Recipient Understood Notice: Yes Recipient Signature: Yes Med Rec Note Co-signed by Attending: Coverage Notice Comment: [facility] Last DP export: 05/12/18 3:42 pm Patient Name: KENNY JONES Page 20290 at 1710 All edits/amendments must be made on the electronic document DICTATION DATE: 05/12/181708 SLAB PULLER: SPENCER 05/12/181708 RPT#: [id number] DC DATE: STATUS: ADM IN [facility] [address] [place] [address] END OF REPORT
--- NOTE | 2018-05-12 18:54 | NUR ---
PT'S DILAUDID FELL OFF. DILAUDID DOSAGE WAS NOT HELPING PT'S PAIN. CALLED AND SPOKE WITH DR. HOBSON HE ORDERED DILAUDID 1MG Q4HP.
[2018-05-12 20:00] VITALS: BP 136/86
--- NOTE | 2018-05-12 20:30 | NUR ---
TO PT ROOM VIA CALL LIGHT. CHANGED SOILED LINENS, PT HAD LOOSE BM. PT COMPLAINT OF ANXIETY, EDUCATED PT ON DEEP BREATHING EXERCISES. PT SEEMED MORE CALM BUT REQUESTED PRN ANXIETY MEDICATION. EDUCATED PT THAT MEDICATION WOULD BE ADMINISTERED CLOSER TO THE TIME IT WAS DUE. FOLLOWED UP WITH PT 30 MIN LATER, PT SEEMS MORE CALM AFTER RECIEVING PAIN MEDICATION. NO FURTHER NEEDS NOTED. WCTM, AND FOLLOW POC. SR UP X2, CL IN REACH.
[2018-05-13] VITALS: BP 128/61
--- NOTE | 2018-05-13 00:05 | NUR ---
PT GIVEN ATIVAN IV TOLERATED WELL
[2018-05-13 04:00] VITALS: BP 135/72
--- NOTE | 2018-05-13 05:30 | NUR ---
PT A/O, PAIN 02/16. ADMINISTERED ORDERED ANALGESIC. WCTM. SR UP X2, CL IN REACH.
[2018-05-13 06:11] LABS: BASOPHILS 0.2 % (0-2); EOSINOPHILS 1.1 % (0-7); HEMATOCRIT 22.5 % (42.0-54.0); HEMOGLOBIN 7.9 g/dL (13.5-17.5); IMMATURE GRANULOCYTES 0.5 % (0-5); LYMPHOCYTES 8.1 % (15-50); MCH 30.7 pg (26.0-34.0); MCHC 35.1 g/dL (31.0-37.0); MCV 87.5 fL (80.0-100.0); MEAN PLATELET VOLUME 9.5 fL (7.4-10.4); MONOCYTES 6.9 % (2-11); NEUTROPHILS 83.2 % (40-80); PLATELET COUNT 161 10x3/uL (130-400); RBC 2.57 10x6/uL (4.20-6.10); RDW 15.1 % (11.5-14.5); WBC 9.8 10x3/uL (4.8-10.8)
[2018-05-13 06:19] LABS: ANION GAP 15.4 mmol/L (8-16); CALCIUM 7.6 mg/dL (8.5-10.1); CARBON DIOXIDE 24.1 mmol/L (21.0-32.0); CREATININE - SERUM 9.3 mg/dL (0.6-1.3); POTASSIUM - SERUM 3.5 mmol/L (3.5-5.1)
[2018-05-13 06:28] LABS: PHOSPHOROUS 4.8 mg/dL (2.5-4.9)
--- NOTE | 2018-05-13 08:28 | NUR ---
NS BOLUS STARTED INFUSING AND THEN LEFT FA IV INFILTRATED. STOPPED NS BOLUS AND DC'D LEFT FA 22G IV WITH CATH INTACT. WILL RESTART NEW IV.
[2018-05-13 08:31] VITALS: BP 112/78
--- NOTE | 2018-05-13 09:24 | NUR ---
FLUSHED RIGHT IJ TRIPLE LUMEN EACH LINE WITH 10 ML OF NS. ALL LINES HAVE BLOOD DRAW BACK.
--- NOTE | 2018-05-13 10:50 | NUR ---
GENEVA MOY AND DR. SEGUNDO AWARE OF PT'S BLOODY URINE.
[2018-05-13 13:05] VITALS: BP 125/79
--- NOTE | 2018-05-13 14:02 | NUR ---
RESTING QUIETLY. WILL CONTINUE TO MONITOR.
--- NOTE | 2018-05-13 14:36 | NUR ---
RIGHT THIGH DRESSING REMOVED. CLEANSED INCISIONS WITH SUTURES PLACED XEROFORM ON INCISION AND COVERED WITH 4X4'S AND WRAPPED WITH KERLIX.
--- NOTE | 2018-05-13 14:47 | NUR ---
FLUSHED RIGHT IJ TRIPLE LUMEN EACH WITH 10ML OF NS. ALL LINES HAVE BLOOD DRAW BACK.
--- NOTE | 2018-05-13 19:21 | MORECARE ---
CASE MANAGEMENT DISCHARGE SUMMARY PATIENT: KENNY JONES UNIT: [id number] ADM DATE: 05/01/18 AGE: 52 : 67 SEX: M ROOM/BED: D.0591 AUTHOR: MARGE,DOC PHYSICIAN: REFERRING PHYSICIAN: HANNAH HOBSON MD DATE OF SERVICE: 05/13/18 Discharge Plan Patient Name: KENNY JONES Facility: [facility]:[place] : 1965 Planned Disposition: Custodial Facility Anticipated Discharge Date: Discharge Date: Expected LOS: Initial Reviewer: [id number] Initial Review Date: 05/06/2018 Generated: 05/13/18 8:20 pm Comments DCP- Discharge Planning Updated by [id number]: Markie Burnette on 05/12/18 4:[address] Patient Name: KENNY JONES Encounter No: [id number] : 1965 Primary Insurance: [facility] MEDICARE SOLUTIONS Anticipated DC Date: Planned Disposition: Custodial Facility External Planned Provider: [facility], MEDICARE REHAB BED DCP follow-up note: CM MET WITH PT IN ROOM TO DISCUSS DISCHARGE PLANNING AND NEEDS. PT REPORTS HE CANNOT GO HOME ALONE LIKE THIS AND NEEDS REHAB FIRST. CM DISCUSSED REHAB OPTIONS AND LOCATIONS. PT DOES NOT WANT ANIMAL HUSBANDRY TEACHER CARE AND ASKED FOR [facility] FOR REHAB SERVICES. CHOICE LETTER SIGNED FOR [facility]. CM ADVISED PT THAT KENYATTA CHRISTOPHER OF [facility] WOULD BE IN CONTACT WITH PT REGARDING OUTPATIENT DIALYSIS CLINIC ARRANGEMENTS. PT RE[place]IVING [place] AND HOPES TO BE INDEPENDENT AND RIDING HIS SCOOTER FOR TRANSPORT AFTER REHAB IS COMPLETED. PT REPORTS HIS BROTHER IS ASSISTING WITH CARING FOR PT'S DOG AT HOME AND PAYING PT'S BILLS WITH PT'S CHECK WHILE PT IS IN THE HOSPITAL. PT IS NOT ELIGIBLE FOR FREE TRANSPORT WITH MEDICAID TRANSPORTATION HE IS "QMB" ONLY. CM FAXED REFERRAL TO [facility] VIA [facility] AT [phone]. CM WAITING ADMISSION DETERMINATION FROM [facility] FOR REHAB, INSURANCE AUTHORIZATION FOR REHAB SERVICES FROM PT'S INSURANCE AND OUTPATIENT DIALYSIS CLINIC ARRANGEMENT BY [facility] COORDINATOR. Markie Burnette CASE MANAGEMENT DCP- Discharge Planning Updated by [email or web address]: Markie Burnette on 05/12/18 11:[address] Patient Name: KENNY JONES Encounter No: [id number] : 1965 Primary Insurance: [facility] MEDICARE SOLUTIONS Anticipated DC Date: Planned Disposition: Home DCP follow-up note: CM RECEIVED ORDER FOR OUTPATIENT DIALYSIS AND POSSIBLE REHAB PLACEMENT NEEDS. RN CM HOUSE NOTIFED KENYATTA OF [facility] FOR NEW DAILYSIS CLINIC ARRANGEMENT. CM ATTEMPTED TO MEET WITH PT FOR INITIAL ASSESSMENT OF DISCHARGE NEEDS. PT WAS NOT IN ROOM AT APPROXIMATELY [address]5063 HOURS. CM TO ATTEMPT ASSESSMENT OF PT AT A LATER TIME. Markie Burnette, CASE MANAGEMENT DCP- Discharge Planning Updated by [id number]: Sonia Wyatt on 05/06/18 8:[address] Patient Name: KENNY JONES Admission Status: ER Accout number: [id number] Admission Date: 05-01-2018 : 1965 Admission Diagnosis:TOXIC ENCEPHALOPATHY Attending: HANNAH HOBSON Current LOS: 5 Anticipated DC Date: Planned Disposition: Home Primary Insurance: [facility] MEDICARE SOLUTIONS Discharge Planning Comments: CM met with patient at bedside after obtaining permission. Patient states he was living at home alone. Patient plans to return to his apartment upon discharge. Patient may need rehab before discharge. Patient denies any needs at this time. CM will continue to follow and assist with discharge planning / needs. Ring Maker: Sonia Wyatt DCPIA - Discharge Planning Initial Assessment Updated by [id number]: Sonia Wyatt on 05/06/18 8:59 pm * Is the patient Alert and Oriented? Yes * How many steps to enter\\exit or inside your home? * PCP Deirdre Rose * Pharmacy [facility] * Preadmission Environment Home Alone * ADLs Independent * Equipment None * List name and contact numbers for known caregivers / representatives who currently or will assist patient after discharge: Bryon Jones - Brother - [phone] * Verbal permission to speak to the caregivers and representatives has been obtained from the patient. N/A * Community resources currently utilized None * Additional services required to return to the preadmission environment? No * Can the patient safely return to the preadmission environment? Yes * Has this patient been hospitalized within the prior 30 days at any hospital? Yes External Providers External Provider: [facility] Next Contact Date: 05/13/2018 Service Request Date: Service Type: Resolution: Reviewer: Comments: Coverage Notice Reviewer: [id number] - Markie Burnette Notice Issued Date-Time: 05/12/2018 13:25 Notice Type: Patient Choice Letter Notice Delivered To: Patient Relationship to Patient: Truck Driver Instructor Name: Delivery Method: HAND - Hand Delivered Sagrario Days: Prior Verbal Notification: Recipient Understood Notice: Yes Recipient Signature: Yes Med Rec Note Co-signed by Attending: Coverage Notice Comment: [facility] Last DP export: 05/12/18 4:10 pm Patient Name: KENNY JONES Page 91010 at 1921 All edits/amendments must be made on the electronic document DICTATION DATE: 05/13/181919 WALL STEAMER: SPENCER 05/13/181919 RPT#: [id number] DC DATE: STATUS: ADM IN [facility] [address] [place] [address] END OF REPORT
--- NOTE | 2018-05-13 19:27 | MORECARE ---
CASE MANAGEMENT DISCHARGE SUMMARY PATIENT: KENNY JONES UNIT: [id number] ADM DATE: 05/01/18 AGE: 52 : 67 SEX: M ROOM/BED: D.2101 AUTHOR: MARGE,DOC PHYSICIAN: REFERRING PHYSICIAN: HANNAH HOBSON MD DATE OF SERVICE: 05/13/18 Discharge Plan Patient Name: KENNY JONES Facility: [facility]:[place] : 1965 Planned Disposition: Prison Facility Anticipated Discharge Date: Discharge Date: Expected LOS: Initial Reviewer: [id number] Initial Review Date: 05/06/2018 Generated: 05/13/18 8:27 pm Comments DCP- Discharge Planning Updated by [id number]: Markie Burnette on 05/13/18 6:[address] Patient Name: KENNY JONES Encounter No: [id number] : 1965 Primary Insurance: [facility] MEDICARE SOLUTIONS Anticipated DC Date: Planned Disposition: Prison Facility External Planned Provider: [facility], MEDICARE REHAB BED DCP follow-up note: CM MET WITH PT IN ROOM TO COMPLETE JUANI SCREENING ASSESSMENT. SCREENING FORMS COMPELTED AND SIGNED. CM FAXED TO [employer] AT [phone]. CM WAITING JUANI SCREENING COMPLETION. CM WAITING ADMISSION DETERMINATION FROM [facility] FOR REH[facility], INSURANCE AUTHORIZATION FOR REHAB SERVICES FROM PT'S INSURANCE AND OUTPATIENT DIALYSIS CLINIC ARRANGEMENT BY [facility] COORDINATOR. DIOR Ocampo DCP- Discharge Planning Updated by [id number]: Markie Burnette on 05/12/18 4:[address] Patient Name: KENNY JONES Encounter No: [id number] : 1965 Primary Insurance: [facility] MEDICARE SOLUTIONS Anticipated DC Date: Planned Disposition: Prison Facility External Planned Provider: [facility], MEDICARE REHAB BED DCP follow-up note: CM MET WITH PT IN ROOM TO DISCUSS DISCHARGE PLANNING AND NEEDS. PT REPORTS HE CANNOT GO HOME ALONE LIKE THIS AND NEEDS REHAB FIRST. CM DISCUSSED REHAB OPTIONS AND LOCATIONS. PT DOES NOT WANT CORRECTION CARE AND ASKED FOR [facility] FOR REHAB SERVICES. CHOICE LETTER SIGNED FOR [facility]. CM ADVISED PT THAT KENYATTA CHRISTOPHER OF [facility] WOULD BE IN CONTACT WITH PT REGARDING OUTPATIENT DIALYSIS CLINIC ARRANGEMENTS. PT REPORTS LIVING IN [place] AND HOPES TO BE INDEPENDENT AND RIDING HIS SCOOTER FOR TRANSPORT AFTER REHAB IS COMPLETED. PT REPORTS HIS BROTHER IS ASSISTING WITH CARING FOR PT'S DOG AT HOME AND PAYING PT'S BILLS WITH PT'S CHECK WHILE PT IS IN THE HOSPITAL. PT IS NOT ELIGIBLE FOR FREE TRANSPORT WITH MEDICAID TRANSPORTATION HE IS "QMB" ONLY. CM FAXED REFERRAL TO [facility] VIA [employer] AT [phone]. CM WAITING ADMISSION DETERMINATION FROM [facility] FOR RE[facility], INSURANCE AUTHORIZATION FOR REHAB SERVICES FROM PT'S INSURANCE AND OUTPATIENT DIALYSIS CLINIC ARRANGEMENT BY [facility] PATIENT [facility] COORDINATOR. DIOR Ocampo MANAGEMENT DCP- Discharge Planning Updated by [id number]: Markie Burnette on 05/12/18 11:[address] Patient Name: KENNY JONES Encounter No: [id number] : 1965 Primary Insurance: [facility] MEDICARE SOLUTIONS Anticipated DC Date: Planned Disposition: Home DCP follow-up note: CM RECEIVED ORDER FOR OUTPATIENT DIALYSIS AND POSSIBLE REHAB PLACEMENT NEEDS. RN TODD CANTU NOTIFED KENYATTA OF [facility] FOR NEW DAILYSIS CLINIC ARRANGEMENT. CM ATTEMPTED TO MEET WITH PT FOR INITIAL ASSESSMENT OF DISCHARGE NEEDS. PT WAS NOT IN ROOM AT APPROXIMATELY 146[address] HOURS. CM TO ATTEMPT ASSESSMENT OF PT AT A LATER TIME. DIOR Ocampo DCP- Discharge Planning Updated by [id number]: Sonia Wyatt on 05/06/18 8:[address] Patient Name: KENNY JONES Admission Status: ER Accout number: [id number] Admission Date: 05-01-2018 : 1965 Admission Diagnosis:TOXIC ENCEPHALOPATHY Attending: HANNAH HOBSON Current LOS: 5 Anticipated DC Date: Planned Disposition: Home Primary Insurance: [facility] MEDICARE SOLUTIONS Discharge Planning Comments: CM met with patient at bedside after obtaining permission. Patient states he was living at home alone. Patient plans to return to his apartment upon discharge. Patient may need rehab before discharge. Patient denies any needs at this time. CM will continue to follow and assist with discharge planning / needs. Circuit Clerk: Sonia Wyatt DCPIA - Discharge Planning Initial Assessment Updated by [id number]: Sonia Wyatt on 05/06/18 8:59 pm * Is the patient Alert and Oriented? Yes * How many steps to enter\\exit or inside your home? * PCP Deirdre Rose * Pharmacy [facility] * Preadmission Environment Home Alone * ADLs Independent * Equipment None * List name and contact numbers for known caregivers / representatives who currently or will assist patient after discharge: Bryon Jones - Brother - [phone] * Verbal permission to speak to the caregivers and representatives has been obtained from the patient. N/A * Community resources currently utilized None * Additional services required to return to the preadmission environment? No * Can the patient safely return to the preadmission environment? Yes * Has this patient been hospitalized within the prior 30 days at any hospital? Yes Coverage Notice Reviewer: [id number] Lynne Burnette Notice Issued Date-Time: 05/12/2018 13:25 Notice Type: Patient Choice Letter Notice Delivered To: Patient Relationship to Patient: Police Manager Name: Delivery Method: HAND - Hand Delivered Sagrario Days: Prior Verbal Notification: Recipient Understood Notice: Yes Recipient Signature: Yes Med Rec Note Co-signed by Attending: Coverage Notice Comment: [facility] Last DP export: 05/13/18 6:21 pm Patient Name: KENNY JONES Page 49105 at 1927 All edits/amendments must be made on the electronic document DICTATION DATE: 05/13/181926 MANAGER EMS: SPENCER 05/13/181926 RPT#: [id number] DC DATE: STATUS: [facility] [address] [place] [address] END OF REPORT
--- NOTE | 2018-05-13 19:30 | NUR ---
RESUME CARE. PT IN BED A&O BREATH SOUNDS EVEN PT C/O OF PAIN ADVISED PT I WOULD CHECK HIS EMAR AND BRING MEDS BACK AFTER I ROUNDED PT VOICED UNDERSTANDING CALL LIGHT IN REACH WILL CONT TO KETURAH
[2018-05-13 21:08] VITALS: BP 138/83
--- NOTE | 2018-05-13 21:09 | NUR ---
GAVE NORCO PO PT TOLERATED WILL
--- NOTE | 2018-05-14 02:56 | NUR ---
RESTING WITH EYES CLOSED. RR EVEN U/L. NO S/S OF DISCOMFORT. CL IN REACH.
[2018-05-14 05:29] LABS: BASOPHILS 0.6 % (0-2); EOSINOPHILS 1.6 % (0-7); HEMATOCRIT 23.3 % (42.0-54.0); IMMATURE GRANULOCYTES 0.7 % (0-5); LYMPHOCYTES 8.8 % (15-50); MCH 30.3 pg (26.0-34.0); MCHC 34.3 g/dL (31.0-37.0); MCV 88.3 fL (80.0-100.0); MEAN PLATELET VOLUME 9.1 fL (7.4-10.4); MONOCYTES 9.2 % (2-11); NEUTROPHILS 79.1 % (40-80); PLATELET COUNT 184 10x3/uL (130-400); RBC 2.64 10x6/uL (4.20-6.10); RDW 14.8 % (11.5-14.5)
[2018-05-14 05:50] LABS: ANION GAP 16.1 mmol/L (8-16); CALCIUM 8.1 mg/dL (8.5-10.1); CARBON DIOXIDE 24.3 mmol/L (21.0-32.0); CREATININE - SERUM 11.3 mg/dL (0.6-1.3); PHOSPHOROUS 5.2 mg/dL (2.5-4.9)
[2018-05-14 05:51] LABS: POTASSIUM - SERUM 4.4 mmol/L (3.5-5.1)
--- NOTE | 2018-05-14 07:45 | NUR ---
PATIENT IS ALERT/ORIENT. CALL LIGHT WITHIN REACH. PRN NORCO GIVEN FOR RIGHT LEG PAIN. VOICES NO OTHER NEEDS AT THIS TIME. WILL CONTINUE TO WITH PLAN OF CARE.
[2018-05-14 09:01] VITALS: BP 142/85
--- NOTE | 2018-05-14 10:04 | NUR ---
THIS NURSE TALKED WITH MARGARET SOFIA, FROM DIALYSIS. PATIENT TO GET DIALYSIS LATER TODAY
--- NOTE | 2018-05-14 10:12 | NUR ---
MOLINA NEEDS AT THIS TIME. CALL LIGHT IN REACH. WILL MONITOR.
--- NOTE | 2018-05-14 12:11 | NUR ---
DR. ARELLANO INTO SEE THIS PATIENT
--- NOTE | 2018-05-14 12:57 | NUR ---
PRN IV PAIN MEDICATION GIVEN BEFORE DRESSING CHANGED TO RIGHT THIGH, LEG
--- NOTE | 2018-05-14 13:54 | NUR ---
DRESSING CHANGED PER ORDER TO RIGHT UPPER LEG, THIGH AREA.
[2018-05-14 14:03] VITALS: BP 144/84
--- NOTE | 2018-05-14 16:16 | NUR ---
PATIENT TAKEN DOWN TO DIALYSIS CLINIC BY BED
--- NOTE | 2018-05-14 19:11 | NUR ---
DOWN STAIRS IN DIALYSIS AT THIS TIME. WILL ASSESS WHEN RETURNS TO FLOOR.
--- NOTE | 2018-05-14 20:31 | NUR ---
RECIEVED BACK FROM DIALYSIS. ALERT AND ORIENTED X4. DINNER TRAY HEATED UP. TRIALYSIS TO RIGHT SIDE OF NECK WITH DSG INTACT. DENIES ANY OTHER NEEDS AT THIS TIME. WILL CONT. POC.
--- NOTE | 2018-05-15 04:01 | NUR ---
C/O NAUSEA. ZOFRAN GIVEN PER ORDERS.
[2018-05-15 05:30] LABS: EOSINOPHILS 2.6 % (0-7); HEMATOCRIT 23.2 % (42.0-54.0); HEMOGLOBIN 7.8 g/dL (13.5-17.5); IMMATURE GRANULOCYTES 0.4 % (0-5); LYMPHOCYTES 17.2 % (15-50); MCH 30.4 pg (26.0-34.0); MCHC 33.6 g/dL (31.0-37.0); MEAN PLATELET VOLUME 9.1 fL (7.4-10.4); MONOCYTES 13.3 % (2-11); NEUTROPHILS 65.5 % (40-80); PLATELET COUNT 206 10x3/uL (130-400); RBC 2.57 10x6/uL (4.20-6.10); RDW 14.8 % (11.5-14.5)
[2018-05-15 05:34] VITALS: BP 147/91
[2018-05-15 05:37] LABS: MCV 90.3 fL (80.0-100.0)
[2018-05-15 05:41] LABS: ANION GAP 13.4 mmol/L (8-16); CALCIUM 7.7 mg/dL (8.5-10.1); CARBON DIOXIDE 26.6 mmol/L (21.0-32.0); CREATININE - SERUM 8.5 mg/dL (0.6-1.3)
--- NOTE | 2018-05-15 07:59 | NUR ---
PATIENT IS ALERT/ORIENT. CALL LIGHT WITHIN REACH. VOICES NO NEEDS AT THIS TIME. WILL CONTINUE WITH PLAN OF CARE
--- NOTE | 2018-05-15 08:06 | NUR ---
MOLINA NEEDS AT THIS TIME. CALL LIGHT IN REACH. WILL CONT. PLAN OF CARE.
[2018-05-15 08:31] VITALS: BP 131/82
--- NOTE | 2018-05-15 09:45 | NUR ---
THIS NURSE TALKED WITH Rose SHERWOOD APN. STATED THAT PATIENT IS TO GET PRBC ON 05-16-18 IN DIALYSIS.
[2018-05-15 11:56] VITALS: BP 130/82
--- NOTE | 2018-05-15 13:11 | NUR ---
DRESSING CHANGED TO RIGHT THIGH LEG AREA
--- NOTE | 2018-05-15 13:32 | OP ---
PATIENT NAME: KENNY JONES MEDICAL RECORD: [id number] :67 LOCATION:D.M2 D.2108 ADMISSION DATE:05/01/18 SURGEON: OLAF ALICIA MD DATE OF OPERATION: 05/09/2018 PREOPERATIVE DIAGNOSIS: Prior fasciotomies of the right thigh for compartment syndrome. POSTOPERATIVE DIAGNOSIS: Prior fasciotomies of the right thigh for compartment syndrome. PROCEDURE: Closure of thigh fasciotomies with debridement. SURGEON: Olaf Alicia MD FINANCIAL SYSTEMS DIRECTOR: Huseyin Martin. INTRAOPERATIVE COMPLICATIONS: None. SUMMARY OF PATHOLOGIC FINDINGS: The patient had a healthy red beefy tissue that needed cleanup with closure. This was achieved. Please note that the patient's lateral compartment was closed directly over the muscle as I felt like closing the fascial casing and IT band would result in recurrent compartment syndrome. OPERATIVE SUMMARY IN DETAIL: After obtaining the appropriate preoperative orthopedic surgery consent as well as anesthetic consultation, evaluation and clearance, the patient was brought to the operating room and placed on the operating table in supine position. After adequate general laryngeal mask airway was administered, the patient's right thigh and lower extremity were prepped and draped in routine sterile fashion. Serial and sequential removal of all red vessel loops and jose were then followed by irrigation and debridement using a combination of curettage and rongeurs. This did include skin, subcutaneous tissue, portions of fat, fascia, and muscle. No bony involvement. Medial and lateral wound aggregate in total cm was approximately 240 total cm in aggregate. Having completed this, Jeramy Martin then closed the fasciotomies with 0 Prolene in [id number]-near fashion resulted in excellent closure both medial and lateral wounds. Sterile dressings were applied. The patient was awakened and taken to the recovery room in stable condition. All final needle and sponge counts were correct. TRANSINT:[id number] Voice Confirmation ID: [id number] DOCUMENT ID: [id number] OLAF ALICIA MD at 1332 CC: [id number] DICTATION DATE: 05/13/18 1153 PIPE FITTER SOFT COPPER: 05/13/18 1228 ADM IN [place] [address] [place] [address]
[2018-05-15 15:35] VITALS: BP 131/79
--- NOTE | 2018-05-15 19:04 | NUR ---
RECIEVED UP IN BED WITH EYES OPEN AND TV ON. ALERT AND ORIENTED X4. F/C PATENT WITH RED TINGE URINE TO BEDSIDE DRAINAGE BAG. DSG TO RIGHT THIGH. DENIES ANY PAIN AT THIS TIME. WILL CONT. POC.
[2018-05-15 20:00] VITALS: BP 139/83
--- NOTE | 2018-05-15 21:31 | NUR ---
REFUSED LAXATIVES THIS SHIFT. HAS HAD 2 X-LG BMS THIS SHIFT.
[2018-05-16] VITALS: BP 139/85
[2018-05-16 04:00] VITALS: BP 139/80
[2018-05-16 07:00] LABS: BASOPHILS 0.9 % (0-2); EOSINOPHILS 3.6 % (0-7); HEMATOCRIT 22.7 % (42.0-54.0); HEMOGLOBIN 7.9 g/dL (13.5-17.5); IMMATURE GRANULOCYTES 0.4 % (0-5); LYMPHOCYTES 15.8 % (15-50); MCH 31.3 pg (26.0-34.0); MCHC 34.8 g/dL (31.0-37.0); MCV 90.1 fL (80.0-100.0); MEAN PLATELET VOLUME 9.1 fL (7.4-10.4); MONOCYTES 15.4 % (2-11); NEUTROPHILS 63.9 % (40-80); PLATELET COUNT 238 10x3/uL (130-400); RBC 2.52 10x6/uL (4.20-6.10); RDW 14.3 % (11.5-14.5); WBC 4.5 10x3/uL (4.8-10.8)
--- NOTE | 2018-05-16 07:00 | NUR ---
ROUNDING DONE WITH PATIENT C/O PAIN 10/10. EXPLAINED PAIN SCALE TO HIM. STATES "IT'S NOT A 10". WILL LOOK AND SEE WHEN HE CAN HAVE SOMETHING AND GIVE. YELLOW GOWN, ARM BAND, NON SKID SOCKS ARE ON. RIGHT CVL SEEN SALINE LOCK WITH DRESSING DATED 05/10/18. RIGHT IJ TRIALYSIS WITH NURSE PORT SEEN, NO DATE. ON ROOM AIR. CASTRO CATH PATENT WITH CLEAR YELLOW URINE DATED 05/03/18 SEEN. DRESSING SEEN OF TRUDI TO RIGHT THIGH DATED 05/15/18. 2+ EDEMA FELT TO RIGHT FOOT, LEFT FOOT WNL. PATIENT IS ON EP, NO LABS ORDERED. ORDERED. WILL MONITOR.
[2018-05-16 07:09] LABS: ANION GAP 14.4 mmol/L (8-16); CALCIUM 7.9 mg/dL (8.5-10.1); CREATININE - SERUM 10.4 mg/dL (0.6-1.3); POTASSIUM - SERUM 4.4 mmol/L (3.5-5.1)
--- NOTE | 2018-05-16 07:50 | NUR ---
URINE COLLECTED AND SENT TO THE LAB ORDERED AT THIS TIME
[2018-05-16 08:37] VITALS: BP 130/76
--- NOTE | 2018-05-16 08:39 | NUR ---
I CALLED SORAIDA AT DR ARELLANO OFFICE TO SEE IF PATIENT DOES INDEED NEED BLOOD (PER DR SEGUNDO SAID TO CALL). SHE IS GOING TO ASK DR ARELLANO AND LET ME KNOW.
--- NOTE | 2018-05-16 09:19 | NUR ---
USING STERILE TECHNIQUE, RIGHT CVL AND RIGHT IJ TIRALYSIS DRESSINGS CHANGED. DATED.
--- NOTE | 2018-05-16 09:22 | NUR ---
DR ARELLANO ON FLOOR AND I ASKED HER IF SHE WANTED THE BLOOD TO BE GIVEN DURING DIALYSIS, SHE REPLIED YES. I CALLED LAWRENCE IN THE LAB AND ASKED IF IT WAS READY AND SHE STATES YES.
--- NOTE | 2018-05-16 09:56 | NUR ---
TO DIALYSIS VIA BED. I TALKED TO NIKOLAS IN DIALYSIS AND INFORMED HIM THAT PATIENT IS TO RECEIVE TWO UNITS OF BLOOD WHILE THERE. BLOOD IS READY. RIGHT THIGH DRESSING CHANGED PRIOR TO GOING TO DIALYSIS. RIGHT OUTER INCISION IS 25 CM IN LENGHT WITH SUTURES INTACT, INCISION IS CLEAN, NO DRAINGAE. RIGHT INNER THIGH INCISION IS 15 CM IN LENGHT, SUTURES INTACT, INCISION IS CLEAN, NO DRAIAGE. BOTH ARE COVERED WITH XEROFAOM DRESSING AND WRAPPED IN TRUDI. DATED.
[2018-05-16 10:15] LABS: MAGNESIUM - SERUM 2.4 mg/dL (1.8-2.4); PHOSPHOROUS 4.3 mg/dL (2.5-4.9)
--- NOTE | 2018-05-16 10:55 | NUR ---
POTASSIUM IS 4.4, ALL OTHER EP LAB VALUES WNL.
--- NOTE | 2018-05-16 11:27 | NUR ---
1/2 UNIT OF BLOOD INFUSED PER DIALYSIS. 2ND UNIT OBTAINED AND GIVEN TO THEM.
--- NOTE | 2018-05-16 12:59 | NUR ---
STILL IN DIALYSIS AT THIS TIME.
--- NOTE | 2018-05-16 13:28 | NUR ---
1327-RECEIVED REPORT FROM Blake BAIRES RN IN DIALYSIS. PATIENT DID RECEIVE BOTH UNITS OF PRBC. 3L OF FLUID WAS TAKEN OFF. WILL MONITOR.
--- NOTE | 2018-05-16 13:39 | NUR ---
PATIENT IS EATING LUNCH POST DIALYSIS. RENVELA GIVEN ORDEDED.
[2018-05-16 15:20] VITALS: BP 135/81
--- NOTE | 2018-05-16 16:12 | MORECARE ---
CASE MANAGEMENT DISCHARGE SUMMARY PATIENT: KENNY JONES UNIT: [id number] ADM DATE: 05/01/18 AGE: 52 : 67 SEX: M ROOM/BED: D.2103 AUTHOR: MARGE,DOC PHYSICIAN: REFERRING PHYSICIAN: HANNAH HOBSON MD DATE OF SERVICE: 05/16/18 Discharge Plan Patient Name: KENNY JONES Facility: [facility]:[place] : 1965 Planned Disposition: Longterm Facility Anticipated Discharge Date: Discharge Date: Expected LOS: Initial Reviewer: [id number] Initial Review Date: 05/06/2018 Generated: 05/16/18 5:12 pm Comments DCP- Discharge Planning Updated by [id number]: Markie Burnette on 05/16/18 3:[address] Patient Name: KENNY JONES Encounter No: [id number] : 1965 Primary Insurance: [facility] [employer] Anticipated DC Date: Planned Disposition: Longterm Facility External Planned Provider: [facility], MEDICARE REHAB BED DCP follow-up note: CM RECEIVED [facility] APPROVAL FOR PRISON FACILITY ENTRY FOR 60 DAYS. CM FAXED UPDATE AND [facility] APPROVAL TO THE [facility]IA [facility] AT [phone]. CM WAITING ADMISSION DETERMINATION FROM THE [facility], INSURANCE AUTHORIZATION FOR REHAB SERVICES FROM PT'S INSURANCE AND OUTPATIENT DIALYSIS CLINIC ARRANGEMENT BY [facility] PATIENT PATHWAYS COORDINATOR. Markie Burnette, CASE MANAGEMENT DCP- Discharge Planning Updated by [email or web address]: Markie Burnette on 05/13/18 6:[address] Patient Name: KENNY JONES Encounter No: [id number] : 1965 Primary Insurance: [facility] [place] [employer] Anticipated DC Date: Planned Disposition: Longterm Facility External Planned Provider: [facility], MEDICARE REHAB BED DCP follow-up note: CM MET WITH PT IN ROOM TO COMPLETE [facility]UANI SCREENING ASSESSMENT. SCREENING FORMS COMPELTED AND SIGNED. CM FAXED TO [facility] AT [phone]. CM WAITING [facility]ANI SCREENING COMPLETION. CM WAITING ADMISSION DETERMINATION FROM THE [facility], INSURANCE AUTHORIZATION FOR REHAB SERVICES FROM PT'S INSURANCE AND OUTPATIENT DIALYSIS CLINIC ARRANGEMENT BY [facility] PATIENT PATHWAYS COORDINATOR. Markie Burnette CASE MANAGEMENT DCP- Discharge Planning Updated by [id number]: Markie Burnette on 05/12/18 4:[address] Patient Name: KENNY JONES Encounter No: [id number] : 1965 Primary Insurance: [facility] [employer] Anticipated DC Date: Planned Disposition: Longterm Facility External Planned Provider: [facility], MEDICARE REHAB BED DCP follow-up note: CM MET WITH PT IN ROOM TO DISCUSS DISCHARGE PLANNING AND NEEDS. PT REPORTS HE CANNOT GO HOME ALONE LIKE THIS AND NEEDS REHAB FIRST. CM DISCUSSED REHAB OPTIONS AND LOCATIONS. PT DOES NOT WANT [facility] OR [facility] AND ASKED FOR THE [facility] SERVICES. CHOICE LETTER SIGNED FOR THE [facility]. CM ADVISED PT THAT KENYATTA CHRISTOPHER OF [facility] WOULD BE IN CONTACT WITH PT REGARDING OUTPATIENT DIALYSIS CLINIC ARRANGEMENTS. PT RE[place]TS LIVING IN [place] AND HOPES TO BE INDEPENDENT AND RIDING HIS SCOOTER FOR TRANSPORT AFTER REHAB IS COMPLETED. PT REPORTS HIS BROTHER IS ASSISTING WITH CARING FOR PT'S DOG AT HOME AND PAYING PT'S BILLS WITH PT'S CHECK WHILE PT IS IN THE HOSPITAL. PT IS NOT ELIGIBLE FOR FREE TRANSPORT WITH MEDICAID TRANSPORTATION HE IS "QMB" ONLY. CM FAXED REFERRAL TO THE [facility] AT [phone]. CM WAITING ADMISSION DETERMINATION FROM THE [facility], INSURANCE AUTHORIZATION FOR REHAB SERVICES FROM PT'S INSURANCE AND OUTPATIENT DIALYSIS CLINIC ARRANGEMENT BY [facility] PATIENT PATHWAYS COORDINATOR. Markie Burnette CASE PATRICIA DCP- Discharge Planning Updated by [id number]: Markie Burnette on 05/12/18 11:[address] Patient Name: KENNY JONES Encounter No: [id number] : 1965 Primary Insurance: [facility] [employer] Anticipated DC Date: Planned Disposition: Home DCP follow-up note: CM RECEIVED ORDER FOR OUTPATIENT DIALYSIS AND POSSIBLE REHAB PLACEMENT NEEDS. [facility] NOTIFED KENYATTA OF [facility] FOR NEW DAILYSIS CLINIC ARRANGEMENT. CM ATTEMPTED TO MEET WITH PT FOR INITIAL ASSESSMENT OF DISCHARGE NEEDS. PT WAS NOT IN ROOM AT APPROXIMATELY [id number] HOURS. CM TO ATTEMPT ASSESSMENT OF PT AT A LATER TIME. Markie Burnette CASE MANAGEMENT DCP- Discharge Planning Updated by [id number]: Sonia Wyatt on 05/06/18 8:[address] Patient Name: KENNY JONES Admission Status: ER Accout number: [id number] Admission Date: 05-01-2018 : 1965 Admission Diagnosis:TOXIC ENCEPHALOPATHY Attending: HANNAH HOBSON Current LOS: 5 Anticipated DC Date: Planned Disposition: Home Primary Insurance: [facility] [employer] Discharge Planning Comments: CM met with patient at bedside after obtaining permission. Patient states he was living at home alone. Patient plans to return to his apartment upon discharge. Patient may need rehab before discharge. Patient denies any needs at this time. CM will continue to follow and assist with discharge planning / needs. Lead Electrical Controls Engineer: Sonia Wyatt DCPIA - Discharge Planning Initial Assessment Updated by [id number]: Sonia Wyatt on 05/06/18 8:59 pm * Is the patient Alert and Oriented? Yes * How many steps to enter\\exit or inside your home? * PCP Deirdre Rose * Pharmacy [facility] * Preadmission Environment Home Alone * ADLs Independent * Equipment None * List name and contact numbers for known caregivers / representatives who currently or will assist patient after discharge: Bryon Jones - [place] - [phone] * Verbal permission to speak to the caregivers and representatives has been obtained from the patient. N/A * Community resources currently utilized None * Additional services required to return to the preadmission environment? No * Can the patient safely return to the preadmission environment? Yes * Has this patient been hospitalized within the prior 30 days at any hospital? Yes Coverage Notice Reviewer: [id number] Lynne Burnette Notice Issued Date-Time: 05/12/2018 13:25 Notice Type: Patient Choice Letter Notice Delivered To: Patient Relationship to Patient: Mineral Wool Insulation Supervisor Name: Delivery Method: HAND - Hand Delivered Sagrario Days: Prior Verbal Notification: Recipient Understood Notice: Yes Recipient Signature: Yes Med Rec Note Co-signed by Attending: Coverage Notice Comment: [facility] Last DP export: 05/13/18 6:27 pm Patient Name: KENNY JONES Page 60815 at 1612 All edits/amendments must be made on the electronic document DICTATION DATE: 05/16/182 EMPLOYEE BENEFITS MANAGER: SPENCER 05/16/18 1612 RPT#: [id number] DC DATE: STATUS: ADM IN [facility] [address] [place] [address] END OF REPORT
--- NOTE | 2018-05-16 18:06 | NUR ---
C/O OF NAUSEA. ZOFRAN 4 MG GIVEN TO RIGHT CVL THEN FLUSHED WITH 10 CC NS. TOELRATED WELL.
--- NOTE | 2018-05-16 19:00 | NUR ---
PT ALERT AND ORIENTED WHEN ENTERING THE ROOM. PT HAS DRESSING TO THE RIGHT LEG SIGNED AND DATED FOR TODAY. IT IS CLEAN DRY AND INTACT. PT RATES PAIN OF "11" IN RIGHT LEG. IV IN RIGHT JUGULAR WITH TRIALYSIS CONNECTED CURRENTLY SALINE LOCKED. PT STATES "NOTHING ELSE WRONG ACCEPT PAIN" AND REQUESTS PAIN MEDICINE WHEN AVAILABLE.
[2018-05-16 20:00] VITALS: BP 141/88
--- NOTE | 2018-05-16 21:20 | NUR ---
PT TOLERATED HS MEDICATIONS AND PAIN MEDICINE WELL. PROVIDED TEACHING ON INCENTIVE SPIROMETER. PT USED SEVERAL TIMES WHILE THIS NURSE IN ROOM. CASTRO CATHETER DRAINING LIGHT BRIGHT RED URINE. PT STATES THIS IS "NORMAL" RECEIVED IN REPORT THAT THIS IS NORMAL WELL. WILL CONTINUE TO MONITOR OUTPUT AND URINE WELL LEG. PT DENIES OTHER NEEDS AT THIS TIME. PT WITH CALL LIGHT IN REACH AND IS ON BED SIDE TABLE. PT VERBALIZES TO USE "DURING COMMERCIAL BREAKS."
--- NOTE | 2018-05-16 23:25 | NUR ---
EXOTIC DANCER AT BEDSIDE TO OBTAIN VITALS, CALL LIGHT IN REACH. WILL CONTINUE WITH PLAN OF CARE.
[2018-05-17] VITALS: BP 145/83
--- NOTE | 2018-05-17 00:46 | NUR ---
ADMINISTERED ZOFRAN PER REQUEST. PT STATED RELEIF AFTER ADMINISTRATION. CALL LIGHT IN REACH.
[2018-05-17 04:00] VITALS: BP 136/76
[2018-05-17 04:39] LABS: BASOPHILS 1.1 % (0-2); EOSINOPHILS 3.8 % (0-7); IMMATURE GRANULOCYTES 0.9 % (0-5); LYMPHOCYTES 24.6 % (15-50); MCH 29.7 pg (26.0-34.0); MCHC 33.8 g/dL (31.0-37.0); MEAN PLATELET VOLUME 8.4 fL (7.4-10.4); MONOCYTES 11.1 % (2-11); NEUTROPHILS 58.5 % (40-80); PLATELET COUNT 217 10x3/uL (130-400); RDW 16.3 % (11.5-14.5); WBC 4.7 10x3/uL (4.8-10.8)
[2018-05-17 04:43] LABS: HEMATOCRIT 28.1 % (42.0-54.0); HEMOGLOBIN 9.5 g/dL (13.5-17.5); MCV 87.8 fL (80.0-100.0)
[2018-05-17 04:55] LABS: ANION GAP 8.3 mmol/L (8-16); CALCIUM 7.6 mg/dL (8.5-10.1); MAGNESIUM - SERUM 2.1 mg/dL (1.8-2.4); PHOSPHOROUS 3.6 mg/dL (2.5-4.9); POTASSIUM - SERUM 4.3 mmol/L (3.5-5.1)
[2018-05-17 04:57] LABS: CREATININE - SERUM 7.6 mg/dL (0.6-1.3)
--- NOTE | 2018-05-17 05:52 | NUR ---
PT RESTING. NO COMPLAINTS AT THIS TIME. NO DISTRESS NOTED. CALL LIGHT IN REACH.
--- NOTE | 2018-05-17 06:45 | NUR ---
ROUNDING DONE WITH PATIENT AROUSING EASILY. NO NEEDS VOICED. CASTRO CATH SEEN WITH SLIGHT RED TINGED URINE. RIGHT TRIPLE LUMEN SUBCLAVIAN SALINE LOCK WITH C/D/I DRESSING. RIGHT IJ TRIALYSIS SEEN WITH NURSE PORT WITH C/D/I DRESSING. RIGHT THIGH WITH DRESSING OF TRUDI, C/D/I. NON SKID SOCKS ON WITH 2+ EDEMA TO RIGHT FOOT. ON EP, K+ 4.3. ON ROOM AIR. WILL MONITOR FOR NEEDS.
[2018-05-17 08:19] VITALS: BP 129/81
--- NOTE | 2018-05-17 10:17 | NUR ---
1015-OP PERMITS ARE SIGNED AND DATED FOR TOMORROW.
--- NOTE | 2018-05-17 10:42 | NUR ---
RESTING QUIETLY NAD NOTED
[2018-05-17 11:44] VITALS: BP 145/79
--- NOTE | 2018-05-17 14:36 | NUR ---
RESTING WITH EYES CLOSED, RESP ARE EVEN AND NON LABORED AT THIS TIME. APPEARS TO BE PAIN FREE AT THIS TIME.
--- NOTE | 2018-05-17 15:34 | NUR ---
DRESSING TO RIGHT THIGH CHANGED ORDERED. RIGHT OUTER INCISION SEEN AND INNER RIGHT THIGH INCISION SEEN EACH WITH INTACT SUTURES. XEROFOAM MEDICATED DRESSINGS APPLIED, WRAPPED WITH TRUDI. DATED.
[2018-05-17 16:36] VITALS: BP 131/80
[2018-05-17 19:00] VITALS: BP 153/88
--- NOTE | 2018-05-17 19:20 | NUR ---
RESUME CARE. PT IN BED A&O NO C/O OF PAIN OR DISTRESSA AT THIS TIME PT ASK FOR BEDPAN, PLACE PT ON BEDPAN AND ASVISED HIM TO HIT HIS CALL LIGHT ONCE HE WAS DONE .. CALL LIGHT IN REACH WILL CONT TO KETURAH
[2018-05-18] VITALS: BP 138/85
[2018-05-18 04:00] VITALS: BP 148/85
--- NOTE | 2018-05-18 04:11 | NUR ---
RESTING IN BED WITH EYES CLOSED. NO S/S OF DISTRESS OBSERVED.
[2018-05-18 06:23] LABS: BASOPHILS 0.8 % (0-2); EOSINOPHILS 2.6 % (0-7); HEMATOCRIT 28.7 % (42.0-54.0); HEMOGLOBIN 9.5 g/dL (13.5-17.5); IMMATURE GRANULOCYTES 0.6 % (0-5); LYMPHOCYTES 14.1 % (15-50); MCH 29.5 pg (26.0-34.0); MCHC 33.1 g/dL (31.0-37.0); MCV 89.1 fL (80.0-100.0); MEAN PLATELET VOLUME 8.6 fL (7.4-10.4); MONOCYTES 13.1 % (2-11); NEUTROPHILS 68.8 % (40-80); PLATELET COUNT 235 10x3/uL (130-400); RBC 3.22 10x6/uL (4.20-6.10); RDW 15.7 % (11.5-14.5)
[2018-05-18 06:30] LABS: ANION GAP 15.5 mmol/L (8-16); CALCIUM 8.1 mg/dL (8.5-10.1); CARBON DIOXIDE 28.1 mmol/L (21.0-32.0); CREATININE - SERUM 9.4 mg/dL (0.6-1.3); MAGNESIUM - SERUM 2.3 mg/dL (1.8-2.4); POTASSIUM - SERUM 4.6 mmol/L (3.5-5.1)
--- NOTE | 2018-05-18 07:49 | NUR ---
RECIEVED BEDSIDE REPORT. AM ROUNDS COMPLETED. VSS, PT AAOX4, RESP UNLABORED. PT HAVING A HEMOSPLIT PLACEMENT THIS AM. WILL CTM. CL IN REACH. BED IN LOW.
[2018-05-18 08:25] VITALS: BP 149/83
--- NOTE | 2018-05-18 11:24 | NUR ---
SURGERY CALLED TO PRE-OP PT. UNABLE TO PROVIDE ANY MEDICATIONS NONE HAVE BEEN ORDERED. PT HAS CONSENTS AND IS READY TO GO. WILL NOTIFY SURGERY TEAM.
[2018-05-18 11:53] VITALS: BP 131/80
--- NOTE | 2018-05-18 13:27 | NUR ---
PATIENT HAD DRESSING ON RIGHT HIP THAT HAD ROLLED DOWN AND PORTION OF INCISION WAS EXPOSED, DRESSED THIS AREA WITH XEROFORM AND 4X4S, TWORLEY.
--- NOTE | 2018-05-18 14:45 | NUR ---
Pt NPO past MN for hemosplit Pt out of room during rounds Weight 222lb Prior to today pts po intake varies RD following
--- NOTE | 2018-05-18 14:50 | NUR ---
PT BACK FROM SURGERY WITH PLACEMENT OF A RIGHT SUCCLAVIAN HEMOSPLIT. RECIEVED REPORT FROM DEBBIE. RIGHT SUBCLAVIAN HEMOPLIT INTACT. PT AAO X3, VSS. PT RECIEVED 4 DOSES OF ZOFRAN DURING PROCEDURE AND 4 DOSES AFTER.PT C/O NAUSEA AND ALSO STATES HE IS HUNGRY. CALLED DIATARY FOR FOOD. PT HAVE NO NEED FOR PAIN AT THIS TIME. WILL CONTINUE POC. CL IN REACH, BED IN LOW.
[2018-05-18 16:36] VITALS: BP 160/95
--- NOTE | 2018-05-18 19:30 | NUR ---
RESUME CARE.PT LAYING IN BED A&O C/O PAIN ADVISED I WOULD BRINF BACK [facility] FOR PAIN NO OTHER ISSUES AT THIS TIME CALL LIGHT IN REACH WILL CONT TO KETURAH
[2018-05-18 20:04] VITALS: BP 137/86
[2018-05-19] VITALS: BP 141/83
[2018-05-19 04:00] VITALS: BP 149/81
[2018-05-19 06:21] LABS: HEMATOCRIT 27.9 % (42.0-54.0); HEMOGLOBIN 9.7 g/dL (13.5-17.5); LYMPHOCYTES 9.6 % (15-50); MCH 30.7 pg (26.0-34.0); MCHC 34.8 g/dL (31.0-37.0); MCV 88.3 fL (80.0-100.0); MEAN PLATELET VOLUME 7.7 fL (7.4-10.4); NEUTROPHILS 78.5 % (40-80); PLATELET COUNT 256 10x3/uL (130-400); RBC 3.16 10x6/uL (4.20-6.10); RDW 14.6 % (11.5-14.5)
[2018-05-19 06:29] LABS: WBC 6.5 10x3/uL (4.8-10.8)
[2018-05-19 06:32] LABS: ANION GAP 12.3 mmol/L (8-16); CALCIUM 8.3 mg/dL (8.5-10.1); CARBON DIOXIDE 28.7 mmol/L (21.0-32.0); CREATININE - SERUM 10.8 mg/dL (0.6-1.3); MAGNESIUM - SERUM 2.5 mg/dL (1.8-2.4); PHOSPHOROUS 3.4 mg/dL (2.5-4.9)
[2018-05-19 07:58] VITALS: BP 146/84
--- NOTE | 2018-05-19 08:00 | NUR ---
AM ROUNDS COMPLETED. PT VSS, BREATHING UNLABORED. PT AA0 X4. PT IS SCHEDULED FOR DIALYSIS TODAY. PT STATES HE IS FEELING NAUSEA. IV ZOFRAN GIVEN. WILL CONTINUE POC. CL IN REACH BED IN LOW.
--- NOTE | 2018-05-19 12:00 | NUR ---
PT BACK FROM DIALYSIS. DIALYSIS NOT DONE, COULD NOT ASSESSED PT HEMOSPLIT. ACTIVASE INFUSING. WILL BE LEFT IN TILL TOMORROW. PT VSS, AAO X4. PT STATES HIS BACK HURTS. PAIN MED ADMINISTERED. WILL CTM. CL IN REACH, BED IN LOW.
--- NOTE | 2018-05-19 16:09 | MORECARE ---
CASE MANAGEMENT DISCHARGE SUMMARY PATIENT: KENNY JONES UNIT: [id number] ADM DATE: 05/01/18 AGE: 52 : 67 SEX: M ROOM/BED: D.8150 AUTHOR: MARGE,DOC PHYSICIAN: REFERRING PHYSICIAN: HANNAH HOBSON MD DATE OF SERVICE: 05/19/18 Discharge Plan Patient Name: KENNY JONES Facility: [facility]:[place] : 1965 Planned Disposition: Fpc Facility Anticipated Discharge Date: Discharge Date: Expected LOS: Initial Reviewer: [id number] Initial Review Date: 05/06/2018 Generated: 05/19/18 5:08 pm Comments DCP- Discharge Planning Updated by [id number]: Markie Burnette on 05/19/18 3:[address] Patient Name: KENNY JONES Encounter No: [id number] : 1965 Primary Insurance: [facility] MEDICARE SOLUTIONS Anticipated DC Date: Planned Disposition: Fpc Facility External Planned Provider: [facility], MEDICARE REHAB BED DCP follow-up note: [facility] APPROVED FOR SENIOR LIVING FACILITY ENTRY FOR 60 DAYS OF REHAB. CM FAXED UPDATE TO THE [facility] [employer] AT [phone]. CM SPOKE TO KENYATTA URE[facility] WHO WILL CHECK ON OUTPATIENT DIALYSIS CLINIC ACCEPTANCE. CM WAITING ADMISSION DETERMINATION FROM [facility], INSURANCE AUTHORIZATION FOR REHAB SERVICES FROM 'S INSURANCE AND OUTPATIENT DIALYSIS CLINIC ARRANGEMENT BY [facility] PATIENT [facility]WAYS COORDINATOR. Markie Burnette, CASE MANAGEMENT DCP- Discharge Planning Updated by [id number]: Markie Burnette on 05/16/18 3:[address] Patient Name: KENNY JONES Encounter No: [id number] : 1965 Primary Insurance: [facility] MEDICARE SOLUTIONS Anticipated DC Date: Planned Disposition: Fpc Facility External Planned Provider: [facility], MEDICARE REHAB BED DCP follow-up note: CM RECEIVED [facility] APPROVAL FOR SENIOR LIVING FACILITY ENTRY FOR 60 DAYS. CM FAXED UPDATE AND [facility] APPROVAL TO THE [facility] [employer] [employer] AT [phone]. CM WAITING ADMISSION DETERMINATION FROM [facility], INSURANCE AUTHORIZATION FOR REHAB SERVICES FROM PT'S INSURANCE AND OUTPATIENT DIALYSIS CLINIC ARRANGEMENT BY [facility] PATIENT PATHWAYS COORDINATOR. Markie Burnette CASE MANAGEMENT DCP- Discharge Planning Updated by [id number]: Markie Burnette on 05/13/18 6:[address] Patient Name: KENNY JONES Encounter No: [id number] : 1965 Primary Insurance: [facility] MEDICARE SOLUTIONS Anticipated DC Date: Planned Disposition: Fpc Facility External Planned Provider: [facility], MEDICARE REHAB BED DCP follow-up note: CM MET WITH PT IN ROOM TO COMPLETE [facility] SCREENING ASSESSMENT. SCREENING FORMS COMPELTED AND SIGNED. CM FAXED TO [employer] AT [phone]. CM WAITING [facility] SCREENING COMPLETION. CM WAITING ADMISSION DETERMINATION FROM [facility], INSURANCE AUTHORIZATION FOR REHAB SERVICES FROM PT'S INSURANCE AND OUTPATIENT DIALYSIS CLINIC ARRANGEMENT BY [facility] PATIENT PATHWAYS COORDINATOR. Markie Burnette CASE MANAGEMENT DCP- Discharge Planning Updated by [id number]: Markie Burnette on 05/12/18 4:[address] Patient Name: KENNY JONES Encounter No: [id number] : 1965 Primary Insurance: [facility] MEDICARE SOLUTIONS Anticipated DC Date: Planned Disposition: Fpc Facility External Planned Provider: [facility], MEDICARE REHAB BED DCP follow-up note: CM MET WITH PT IN ROOM TO DISCUSS DISCHARGE PLANNING AND NEEDS. PT REPORTS HE CANNOT GO HOME ALONE LIKE THIS AND NEEDS REHAB FIRST. CM DISCUSSED REHAB OPTIONS AND LOCATIONS. PT DOES NOT WANT [facility] CARE AND ASKED FOR [facility] FOR RE[facility] SERVICES. CHOICE LETTER SIGNED FOR THE [facility]. CM ADVISED PT THAT KENYATTA CHRISTOPHER OF [facility] WOULD BE IN CONTACT WITH PT REGARDING OUTPATIENT DIALYSIS CLINIC ARRANGEMENTS. PT REPORTS LIVING IN [place] AND HOPES TO BE INDEPENDENT AND RIDING HIS SCOOTER FOR TRANSPORT AFTER REHAB IS COMPLETED. PT REPORTS HIS BROTHER IS ASSISTING WITH CARING FOR PT'S DOG AT HOME AND PAYING PT'S BILLS WITH PT'S CHECK WHILE PT IS IN THE HOSPITAL. PT IS NOT ELIGIBLE FOR FREE TRANSPORT WITH MEDICAID TRANSPORTATION HE IS "QMB" ONLY. CM FAXED REFERRAL TO THE [facility] [employer] [employer] AT [phone]. CM WAITING ADMISSION DETERMINATION FROM [facility] FOR [facility], INSURANCE AUTHORIZATION FOR REHAB SERVICES FROM PT'S INSURANCE AND OUTPATIENT DIALYSIS CLINIC ARRANGEMENT BY [facility] PATIENT PATHWAYS COORDINATOR. Markie Burnette CASE MANAGEMENT DCP- Discharge Planning Updated by [id number]: Markie Burnette on 05/12/18 11:[address] Patient Name: KENNY JONES Encounter No: [id number] : 1965 Primary Insurance: [facility] MEDICARE SOLUTIONS Anticipated DC Date: Planned Disposition: Home DCP follow-up note: CM RECEIVED ORDER FOR OUTPATIENT DIALYSIS AND POSSIBLE REHAB PLACEMENT NEEDS. [facility] NOTIFED KENYATTA OF [facility] FOR NEW DAILYSIS CLINIC ARRANGEMENT. CM ATTEMPTED TO MEET WITH PT FOR INITIAL ASSESSMENT OF DISCHARGE NEEDS. PT WAS NOT IN ROOM AT APPROXIMATELY [address] HOURS. CM TO ATTEMPT ASSESSMENT OF PT AT A LATER TIME. DIOR Ocampo DCP- Discharge Planning Updated by [id number]: Sonia Wyatt on 05/06/18 8:[address] Patient Name: KENNY JONES Admission Status: ER Accout number: [id number] Admission Date: 05-01-2018 : 1965 Admission Diagnosis:TOXIC ENCEPHALOPATHY Attending: HANNAH HOBSON Current LOS: 5 Anticipated DC Date: Planned Disposition: Home Primary Insurance: [facility] MEDICARE SOLUTIONS Discharge Planning Comments: CM met with patient at bedside after obtaining permission. Patient states he was living at home alone. Patient plans to return to his apartment upon discharge. Patient may need rehab before discharge. Patient denies any needs at this time. CM will continue to follow and assist with discharge planning / needs. Hasher Machine Operator: Sonia Wyatt DCPIA - Discharge Planning Initial Assessment Updated by [id number]: Sonia Wyatt on 05/06/18 8:59 pm * Is the patient Alert and Oriented? Yes * How many steps to enter\\exit or inside your home? * PCP Deirdre Rose * Pharmacy [facility] * Preadmission Environment Home Alone * ADLs Independent * Equipment None * List name and contact numbers for known caregivers / representatives who currently or will assist patient after discharge: Bryon Jones - Brother - [phone] * Verbal permission to speak to the caregivers and representatives has been obtained from the patient. N/A * Community resources currently utilized None * Additional services required to return to the preadmission environment? No * Can the patient safely return to the preadmission environment? Yes * Has this patient been hospitalized within the prior 30 days at any hospital? Yes Coverage Notice Reviewer: [id number] Lynne Burnette Notice Issued Date-Time: 05/12/2018 13:25 Notice Type: Patient Choice Letter Notice Delivered To: Patient Relationship to Patient: Architectural Technician Name: Delivery Method: HAND - Hand Delivered Sagrario Days: Prior Verbal Notification: Recipient Understood Notice: Yes Recipient Signature: Yes Med Rec Note Co-signed by Attending: Coverage Notice Comment: [facility] Last DP export: 05/16/18 3:12 pm Patient Name: KENNY JONES Page [id number] at 1609 All edits/amendments must be made on the electronic document DICTATION DATE: 05/19/181607 LOCAL HAZMAT DRIVER: SPENCER 05/19/181607 RPT#: [id number] DC DATE: STATUS: ADM IN [facility] [address] [place] [address] END OF REPORT
[2018-05-19 16:25] VITALS: BP 150/88
--- NOTE | 2018-05-19 19:30 | NUR ---
RESUME CARE.PT LAYING IN BED A&O C/O OF PAIN ADVISED PT I WOULD BRING PAIN MEDS AFTER I ROUNDED HE VOICED UNDERSTANDING NO OTHER COMPLAINTS AT THIS TIME CALL LIGHT IN REACH WILL CONT TO [facility]
[2018-05-19 20:00] VITALS: BP 146/89
--- NOTE | 2018-05-20 00:30 | NUR ---
PT ASLEEP. NO S/S OF DISTRESS. BEDLOW AND CALL LIGHT IN REACH. WILL CPOC
[2018-05-20 04:00] VITALS: BP 147/84
[2018-05-20 04:38] LABS: MAGNESIUM - SERUM 2.4 mg/dL (1.8-2.4)
[2018-05-20 04:48] LABS: PHOSPHOROUS 4.4 mg/dL (2.5-4.9)
--- NOTE | 2018-05-20 07:23 | NUR ---
PT C/O PAIN. WILL ADMIN NEXT PAIN MED WHEN AVALIABLE. WILL SEE IF I CAN D/C CASTRO TODAY. NO CONCERNS/COMPLAINTS AT THIS TIME. CL IN REACH.
[2018-05-20 09:02] VITALS: BP 147/95
--- NOTE | 2018-05-20 10:16 | NUR ---
PT IN DIAYLSIS
[2018-05-20 12:17] VITALS: BP 142/86
--- NOTE | 2018-05-20 13:03 | NUR ---
NO NEEDS VOICED AT THIS TIME. CALL LIGHT IN REACH. WILL MONITOR.
--- NOTE | 2018-05-20 14:38 | MORECARE ---
CASE MANAGEMENT DISCHARGE SUMMARY PATIENT: KENNY JONES UNIT: [id number] ADM DATE: 05/01/18 AGE: 52 : 67 SEX: M ROOM/BED: D.7101 AUTHOR: MARGE,DOC PHYSICIAN: REFERRING PHYSICIAN: HANNAH HOBSON MD DATE OF SERVICE: 05/20/18 Discharge Plan Patient Name: KENNY JONES Facility: [facility]:[place] : 1965 Planned Disposition: Penitentiary Facility Anticipated Discharge Date: Discharge Date: Expected LOS: Initial Reviewer: [id number] Initial Review Date: 05/06/2018 Generated: 05/20/18 3:38 pm Comments DCP- Discharge Planning Updated by [id number]: Markie Burnette on 05/19/18 3:[address] Patient Name: KENNY JONES Encounter No: [id number] : 1965 Primary Insurance: [facility] MEDICARE SOLUTIONS Anticipated DC Date: Planned Disposition: Penitentiary Facility External Planned Provider: [facility], MEDICARE REHAB BED DCP follow-up note: [facility] APPROVED FOR SENIOR CARE FACILITY ENTRY FOR 60 DAYS OF REHAB. CM FAXED UPDATE TO [facility] [employer] AT [phone]. CM SPOKE TO KENYATTA URENA [facility] WHO WILL CHECK ON OUTPATIENT DIALYSIS CLINIC ACCEPTANCE. CM WAITING ADMISSION DETERMINATION FROM [facility] FOR REHAB, INSURANCE AUTHORIZATION FOR REHAB SERVICES FROM 'S INSURANCE AND OUTPATIENT DIALYSIS CLINIC ARRANGEMENT BY [facility] COORDINATOR. Markie Burnette, CASE MANAGEMENT DCP- Discharge Planning Updated by [id number]: Markie Burnette on 05/16/18 3:[address] Patient Name: KENNY JONES Encounter No: [id number] : 1965 Primary Insurance: [facility] MEDICARE SOLUTIONS Anticipated DC Date: Planned Disposition: Penitentiary Facility External Planned Provider: [facility], MEDICARE REHAB BED DCP follow-up note: CM RECEIVED [facility] APPROVAL FOR SENIOR CARE FACILITY ENTRY FOR 60 DAYS. CM FAXED UPDATE AND [facility] TO [facility] [employer] AT [phone]. CM WAITING ADMISSION DETERMINATION FROM [facility] FOR REH[facility], INSURANCE AUTHORIZATION FOR REHAB SERVICES FROM PT'S INSURANCE AND OUTPATIENT DIALYSIS CLINIC ARRANGEMENT BY [facility] PATIENT PATHWAYS COORDINATOR. Markie Burnette CASE MANAGEMENT DCP- Discharge Planning Updated by [id number]: Markie Burnette on 05/13/18 6:[address] Patient Name: KENNY JONES Encounter No: [id number] : 1965 Primary Insurance: [facility] MEDICARE SOLUTIONS Anticipated DC Date: Planned Disposition: Penitentiary Facility External Planned Provider: [facility], MEDICARE REHAB BED DCP follow-up note: CM MET WITH PT IN ROOM TO COMPLETE [facility] SCREENING ASSESSMENT. SCREENING FORMS COMPELTED AND SIGNED. CM FAXED TO [employer] AT [phone]. CM WAITING [facility] SCREENING COMPLETION. CM WAITING ADMISSION DETERMINATION FROM [facility] FOR REH[facility], INSURANCE AUTHORIZATION FOR REHAB SERVICES FROM PT'S INSURANCE AND OUTPATIENT DIALYSIS CLINIC ARRANGEMENT BY [facility] PAT[facility] COORDINATOR. Markie Burnette CASE MANAGEMENT DCP- Discharge Planning Updated by [email or web address]: Markie Burnette on 05/12/18 4:[address] Patient Name: KENNY JONES Encounter No: [id number] : 1965 Primary Insurance: [facility] MEDICARE SOLUTIONS Anticipated DC Date: Planned Disposition: Penitentiary Facility External Planned Provider: [facility], MEDICARE REHAB BED DCP follow-up note: CM MET WITH PT IN ROOM TO DISCUSS DISCHARGE PLANNING AND NEEDS. PT REPORTS HE CANNOT GO HOME ALONE LIKE THIS AND NEEDS REHAB FIRST. CM DISCUSSED REHAB OPTIONS AND LOCATIONS. PT DOES NOT WANT [facility] AND ASKED FOR [facility] FOR REHAB SERVICES. CHOICE LETTER SIGNED FOR [facility]. CM ADVISED PT THAT KENYATTA CHRISTOPHER OF [facility] WOULD BE IN CONTACT WITH PT REGARDING OUTPATIENT DIALYSIS CLINIC ARRANGEMENTS. PT REPORTS LIVING IN HOT [place] AND HOPES TO BE INDEPENDENT AND RIDING HIS SCOOTER FOR TRANSPORT AFTER REHAB IS COMPLETED. PT REPORTS HIS BROTHER IS ASSISTING WITH CARING FOR PT'S DOG AT HOME AND PAYING PT'S BILLS WITH PT'S CHECK WHILE PT IS IN THE HOSPITAL. PT IS NOT ELIGIBLE FOR FREE TRANSPORT WITH MEDICAID TRANSPORTATION HE IS "QMB" ONLY. CM FAXED REFERRAL TO [facility]IA [employer] AT [phone]. CM WAITING ADMISSION DETERMINATION FROM [facility] FOR REHAB, INSURANCE AUTHORIZATION FOR REHAB SERVICES FROM PT'S INSURANCE AND OUTPATIENT DIALYSIS CLINIC ARRANGEMENT BY [facility] PAT[facility] COORDINATOR. Markie Burnette CASE MANAGEMENT DCP- Discharge Planning Updated by [id number]: Markie Burnette on 05/12/18 11:[address] Patient Name: KENNY JONES Encounter No: [id number] : 1965 Primary Insurance: [facility] MEDICARE SOLUTIONS Anticipated DC Date: Planned Disposition: Home DCP follow-up note: CM RECEIVED ORDER FOR OUTPATIENT DIALYSIS AND POSSIBLE REHAB PLACEMENT NEEDS. RN [facility] NOTIFED KENYATTA OF [facility] FOR NEW DAILYSIS CLINIC ARRANGEMENT. CM ATTEMPTED TO MEET WITH PT FOR INITIAL ASSESSMENT OF DISCHARGE NEEDS. PT WAS NOT IN ROOM AT APPROXIMATELY [id number] HOURS. CM TO ATTEMPT ASSESSMENT OF PT AT A LATER TIME. DIOR Ocampo DCP- Discharge Planning Updated by [id number]: Sonia Wyatt on 05/06/18 8:[address] Patient Name: KENNY JONES Admission Status: ER Accout number: [id number] Admission Date: 05-01-2018 : 1965 Admission Diagnosis:TOXIC ENCEPHALOPATHY Attending: HANNAH HOBSON Current LOS: 5 Anticipated DC Date: Planned Disposition: Home Primary Insurance: [facility] MEDICARE SOLUTIONS Discharge Planning Comments: CM met with patient at bedside after obtaining permission. Patient states he was living at home alone. Patient plans to return to his apartment upon discharge. Patient may need rehab before discharge. Patient denies any needs at this time. CM will continue to follow and assist with discharge planning / needs. Lumber Bearer: Sonia Wyatt DCPIA - Discharge Planning Initial Assessment Updated by [id number]: Sonia Wyatt on 05/06/18 8:59 pm * Is the patient Alert and Oriented? Yes * How many steps to enter\\exit or inside your home? * PCP Deirdre Rose * Pharmacy [facility] * Preadmission Environment Home Alone * ADLs Independent * Equipment None * List name and contact numbers for known caregivers / representatives who currently or will assist patient after discharge: Bryon Jones - Brother - [phone] * Verbal permission to speak to the caregivers and representatives has been obtained from the patient. N/A * Community resources currently utilized None * Additional services required to return to the preadmission environment? No * Can the patient safely return to the preadmission environment? Yes * Has this patient been hospitalized within the prior 30 days at any hospital? Yes Coverage Notice Reviewer: [id number] - Markie Burnette Notice Issued Date-Time: 05/12/2018 13:25 Notice Type: Patient Choice Letter Notice Delivered To: Patient Relationship to Patient: Software Licensing Executive Name: Delivery Method: HAND - Hand Delivered Sagrario Days: Prior Verbal Notification: Recipient Understood Notice: Yes Recipient Signature: Yes Med Rec Note Co-signed by Attending: Coverage Notice Comment: [facility] Last DP export: 05/19/18 3:09 p Patient Name: KENNY JONES Page [id number] at 1438 All edits/amendments must be made on the electronic document DICTATION DATE: 05/20/181437 ORAL SURGERY PHYSICIAN: SPENCER 05/20/181437 RPT#: [id number] DC DATE: STATUS: ADM IN [facility] [address] [place] [address] END OF REPORT
--- NOTE | 2018-05-20 14:45 | MORECARE ---
CASE MANAGEMENT DISCHARGE SUMMARY PATIENT: KENNY JONES UNIT: [id number] ADM DATE: 05/01/18 AGE: 52 : 67 SEX: M ROOM/BED: D.210 AUTHOR: MARGE,DOC PHYSICIAN: REFERRING PHYSICIAN: HANNAH HOBSON MD DATE OF SERVICE: 05/20/18 Discharge Plan Patient Name: KENNY JONES Facility: [facility]:[place] : 1965 Planned Disposition: Shelter Facility Anticipated Discharge Date: Discharge Date: Expected LOS: Initial Reviewer: [id number] Initial Review Date: 05/06/2018 Generated: 05/20/18 3:45 pm Comments DCP- Discharge Planning Updated by [id number]: Markie Burnette on 05/20/18 1:[address] Patient Name: KENNY JONES Encounter No: [id number] : 1965 Primary Insurance: [facility] MEDICARE SOLUTIONS Anticipated DC Date: Planned Disposition: Shelter Facility External Planned Provider: [facility], MEDICARE REHAB BED DCP follow-up note: CM SPOKE TO RAUL OF [facility], THEY ARE STILL WAITING ON INSURANCE AUTHORIZATION FROM PT'S INSURANCE COMPANY. CM RECEIVED MESSAGE FROM KENYATTA OF [facility], PT HAS BEEN ACCEPTED FOR OUTPATIENT DIALYSIS, MWF, 0745AM AT [facility]. PT CAN START ON 05-23-18. CM NOTIFIED RAUL OF [facility]. CM WAITING ADMISSION DETERMINATION FROM [facility] FOR REH[facility], INSURANCE AUTHORIZATION FOR REHAB SERVICES FROM PT'S INSURANCE. OUTPATIENT DIALYSIS CLINIC ARRANGEMENT COMPLETED FOR [facility], MWF, 0745AM, START DATE 05-23-18 IF REHAB PLACEMENT IS SECURED. Markie Burnette, CASE MANAGEMENT DCP- Discharge Planning Updated by [id number]: Markie Burnette on 05/19/18 3:[address] Patient Name: KENNY JONES Encounter No: [id number] : 1965 Primary Insurance: [facility] MEDICARE SOLUTIONS Anticipated DC Date: Planned Disposition: Shelter Facility External Planned Provider: [facility], MEDICARE REHAB BED DCP follow-up note: [facility] FOR [facility] FACILITY ENTRY FOR 60 DAYS OF REHAB. CM FAXED UPDATE TO [facility] [employer] AT [phone]. CM SPOKE TO KENYATTA URENA [facility] WHO WILL CHECK ON OUTPATIENT DIALYSIS CLINIC ACCEPTANCE. CM WAITING ADMISSION DETERMINATION FROM [facility], INSURANCE AUTHORIZATION FOR REHAB SERVICES FROM PT'S INSURANCE AND OUTPATIENT DIALYSIS CLINIC ARRANGEMENT BY [facility] PATIENT PATHWAYS COORDINATOR. Markie Burnette CASE MANAGEMENT DCP- Discharge Planning Updated by [id number]: Markie Burnette on 05/16/18 3:[address] Patient Name: KENNY JONES Encounter No: [id number] : 1965 Primary Insurance: [facility] MEDICARE SOLUTIONS Anticipated DC Date: Planned Disposition: Shelter Facility External Planned Provider: [facility], MEDICARE REHAB BED DCP follow-up note: CM RECEIVED [employer] APPROVAL FOR CORRECTION FACILITY ENTRY FOR 60 DAYS. CM FAXED UPDATE AND [facility] TO [facility] [employer] AT [phone]. CM WAITING ADMISSION DETERMINATION FROM [facility], INSURANCE AUTHORIZATION FOR REHAB SERVICES FROM PT'S INSURANCE AND OUTPATIENT DIALYSIS CLINIC ARRANGEMENT BY [facility] PATIENT PATHWAYS COORDINATOR. DIOR Ocampo DCP- Discharge Planning Updated by [id number]: Markie Burnette on 05/13/18 6:[address] Patient Name: KENNY JONES Encounter No: [id number] : 1965 Primary Insurance: [facility] MEDICARE SOLUTIONS Anticipated DC Date: Planned Disposition: Shelter Facility External Planned Provider: [facility], MEDICARE REHAB BED DCP follow-up note: CM MET WITH PT IN ROOM TO COMPLETE [facility] SCREENING ASSESSMENT. SCREENING FORMS COMPELTED AND SIGNED. CM FAXED TO [employer] AT [phone]. CM WAITING [facility] SCREENING COMPLETION. CM WAITING ADMISSION DETERMINATION FROM [facility], INSURANCE AUTHORIZATION FOR REHAB SERVICES FROM PT'S INSURANCE AND OUTPATIENT DIALYSIS CLINIC ARRANGEMENT BY [facility] PATIENT PATHWAYS COORDINATOR. Markie Burnette CASE MANAGEMENT DCP- Discharge Planning Updated by [id number]: Markie Burnette on 05/12/18 4:[address] Patient Name: KENNY JONES Encounter No: [id number] : 1965 Primary Insurance: [facility] MEDICARE SOLUTIONS Anticipated DC Date: Planned Disposition: Shelter Facility External Planned Provider: [facility], MEDICARE REHAB BED DCP follow-up note: CM MET WITH PT IN ROOM TO DISCUSS DISCHARGE PLANNING AND NEEDS. PT REPORTS HE CANNOT GO HOME ALONE LIKE THIS AND NEEDS REHAB FIRST. CM DISCUSSED REHAB OPTIONS AND LOCATIONS. PT DOES NOT WANT [facility]ARE AND ASKED FOR [facility] FOR REH[facility] SERVICES. CHOICE LETTER SIGNED FOR [facility]. CM ADVISED PT THAT KENYATTA CHRISTOPHER OF [facility] WOULD BE IN CONTACT WITH PT REGARDING OUTPATIENT DIALYSIS CLINIC ARRANGEMENTS. PT REPORTS LIVING IN [place]OT [place] AND HOPES TO BE INDEPENDENT AND RIDING HIS SCOOTER FOR TRANSPORT AFTER REHAB IS COMPLETED. PT REPORTS HIS BROTHER IS ASSISTING WITH CARING FOR PT'S DOG AT HOME AND PAYING PT'S BILLS WITH PT'S CHECK WHILE PT IS IN THE HOSPITAL. PT IS NOT ELIGIBLE FOR FREE TRANSPORT WITH MEDICAID TRANSPORTATION HE IS "QMB" ONLY. CM FAXED REFERRAL TO [facility] [employer] AT [phone]. CM WAITING ADMISSION DETERMINATION FROM [facility], INSURANCE AUTHORIZATION FOR REHAB SERVICES FROM PT'S INSURANCE AND OUTPATIENT DIALYSIS CLINIC ARRANGEMENT BY [facility] PATIENT [facility]WAYS COORDINATOR. Markie Burnette, CASE MANAGEMENT DCP- Discharge Planning Updated by [id number]: Markie Burnette on 05/12/18 11:[address] Patient Name: KENNY JONES Encounter No: [id number] : 1965 Primary Insurance: [facility] MEDICARE SOLUTIONS Anticipated DC Date: Planned Disposition: Home DCP follow-up note: CM RECEIVED ORDER FOR OUTPATIENT DIALYSIS AND POSSIBLE REHAB PLACEMENT NEEDS. [facility] NOTIFED KENYATTA OF [facility] FOR NEW DAILYSIS CLINIC ARRANGEMENT. CM ATTEMPTED TO MEET WITH PT FOR INITIAL ASSESSMENT OF DISCHARGE NEEDS. PT WAS NOT IN ROOM AT APPROXIMATELY [id number] HOURS. CM TO ATTEMPT ASSESSMENT OF PT AT A LATER TIME. Markie Burnette CASE MANAGEMENT DCP- Discharge Planning Updated by [id number]: Sonia Wyatt on 05/06/18 8:[address] Patient Name: KENNY JONES Admission Status: ER Accout number: [id number] Admission Date: 05-01-2018 : 1965 Admission Diagnosis:TOXIC ENCEPHALOPATHY Attending: HANNAH HOBSON Current LOS: 5 Anticipated DC Date: Planned Disposition: Home Primary Insurance: [facility] MEDICARE SOLUTIONS Discharge Planning Comments: CM met with patient at bedside after obtaining permission. Patient states he was living at home alone. Patient plans to return to his apartment upon discharge. Patient may need rehab before discharge. Patient denies any needs at this time. CM will continue to follow and assist with discharge planning / needs. Aircraft Metalsmith: Sonia Wyatt DCPIA - Discharge Planning Initial Assessment Updated by [id number]: Sonia Wyatt on 05/06/18 8:59 pm * Is the patient Alert and Oriented? Yes * How many steps to enter\\exit or inside your home? * PCP Deirdre Rose * Pharmacy [facility] * Preadmission Environment Home Alone * ADLs Independent * Equipment None * List name and contact numbers for known caregivers / representatives who currently or will assist patient after discharge: Bryon Jones - Brother - [phone] * Verbal permission to speak to the caregivers and representatives has been obtained from the patient. N/A * Community resources currently utilized None * Additional services required to return to the preadmission environment? No * Can the patient safely return to the preadmission environment? Yes * Has this patient been hospitalized within the prior 30 days at any hospital? Yes Coverage Notice Reviewer: [id number] Lynne Burnette Notice Issued Date-Time: 05/12/2018 13:25 Notice Type: Patient Choice Letter Notice Delivered To: Patient Relationship to Patient: Carrier Driver Name: Delivery Method: HAND - Hand Delivered Sagrario Days: Prior Verbal Notification: Recipient Understood Notice: Yes Recipient Signature: Yes Med Rec Note Co-signed by Attending: Coverage Notice Comment: [facility] Last DP export: 05/20/18 1:38 p Patient Name: KENNY JONES Page [id number] at 1445 All edits/amendments must be made on the electronic document DICTATION DATE: 05/20/18 144 HYDROELECTRIC POWERPLANT SUPERVISOR: SPENCER 05/20/18 1444 RPT#: [id number] IN DATE: STATUS: ADM IN [facility] [address] [place] [address] END OF REPORT
[2018-05-20 15:27] VITALS: BP 136/77
--- NOTE | 2018-05-20 17:04 | NUR ---
D/C IV PER [facility].
[2018-05-20 19:44] VITALS: BP 147/87
--- NOTE | 2018-05-20 20:15 | NUR ---
RESUMING CARE. PT IS ALERT LAYING IN THE BED WATCHING TV. NO C/O VOICED AT THIS TIME. BED IN THE LOWEST POSITION WITH CALL LIGHT IN REACH. WILL CONTINUE TO MONITOR PT AND FOLLOW PLAN OF CARE.
[2018-05-20 23:50] VITALS: BP 144/87
--- NOTE | 2018-05-21 03:36 | NUR ---
PT ATTEMPTING TO USE URINAL. WILL CONTINUE TO MONITOR.
[2018-05-21 03:45] VITALS: BP 143/88
--- NOTE | 2018-05-21 04:04 | NUR ---
PT STATED STILL UNABLE TO VOID. BLADDER SCAN DENOTES 778CC. L WILLIAM ADULT LITERACY INSTRUCTOR NOTIFIED.
--- NOTE | 2018-05-21 05:20 | NUR ---
DUE TO PT BLADDER SCAN BEING 778. NURSE PRACTIONER YOSVANY VILLANUEVA FROM NEPHROLOGY ORDERED A CASTRO CATHETER. A 16 INCH CASTRO CATHETER WAS INSERTED WITH SUCCESS. PT OUTPUT WAS 600 CC'S AFTER INSERTION. CATHETER WAS CLAMP FOR 10 MINUTES TO PREVENT BLADDER SPAMS. AFTER 10 MINUTES CLAMP WAS RELEASE AND URINE IS FLOWING. WILL CONTINUE TO MONITOR PT AND FOLLOW PLAN OF CARE.
[2018-05-21 07:14] LABS: MAGNESIUM - SERUM 2.4 mg/dL (1.8-2.4); PHOSPHOROUS 5.3 mg/dL (2.5-4.9)
[2018-05-21 08:00] VITALS: BP 158/94
[2018-05-21 08:48] LABS: ANION GAP 16.6 mmol/L (8-16); CALCIUM 8.2 mg/dL (8.5-10.1); CARBON DIOXIDE 27.3 mmol/L (21.0-32.0); CREATININE - SERUM 12.2 mg/dL (0.6-1.3); POTASSIUM - SERUM 4.9 mmol/L (3.5-5.1)
--- NOTE | 2018-05-21 14:30 | NUR ---
TO DIALYSIS VIA BED.
--- NOTE | 2018-05-21 14:58 | NUR ---
PAGE INTO DR PIRES CLARITA WITH DIALYSIS IS UNABLE TO DIALYSIS PATIENT USING THE HEMISPLIT. SHE STATES THAT SHE CALLED AND TALKED TO YOSVANY CHOWDHURY APN FOR RENAL. AWAITING CALL BACK.
--- NOTE | 2018-05-21 15:46 | NUR ---
PATIENT TO RETURN FROM DIALYSIS. DID NOT HAVE IT. STILL NO CALL BACK FROM DR PIRES THIS TIME. WILL PAGE AGAIN SHORTLY.
--- NOTE | 2018-05-21 15:56 | NUR ---
PAGE INTO DR PIRES AGAIN THERE WAS NO CALL BACK EARILER. AWAITING CALL BACK.
[2018-05-21 16:00] VITALS: BP 147/85
--- NOTE | 2018-05-21 16:07 | NUR ---
DR PIRES TO CALL BACK WITH NEW ORDERS. PATIENT WILL BE NPO PAST MIDNIGHT. I CALLED REAM CUTTER ALETHA TO HAVE HIM PUT ON THE SCDHEDULE.
[2018-05-21 17:55] VITALS: BP 151/88
--- NOTE | 2018-05-21 19:30 | NUR ---
RECEIVED REPORT, WILL ASSUME CARE OF PT, DENIES ANY NEEDS AT THIS TIME, BED IS LOW, SRX2, CALL LIGHT IN REACH, WILL CONTINUE PLAN OF CARE
--- NOTE | 2018-05-21 20:45 | NUR ---
COMPLAINS OF R.LEG PAIN, GAVE NORCO ORDER
--- NOTE | 2018-05-21 23:30 | NUR ---
DRESSING CHANGE TO R.LEG
--- NOTE | 2018-05-22 03:19 | NUR ---
CONSENT SIGNED FOR HEMOSPLIT REPLACEMENT
[2018-05-22 03:51] VITALS: BP 153/88
--- NOTE | 2018-05-22 03:58 | NUR ---
PT RESTING IN BED WITH RESPS EVEN/NONLABORED. NO DISTRESS. MONITOR AND CPOC.
--- NOTE | 2018-05-22 04:28 | NUR ---
LAB DRAW COMPLETE, GIVEN TO GRANITE POLISHER
[2018-05-22 05:16] LABS: BASOPHILS 0.7 % (0-2); EOSINOPHILS 4.6 % (0-7); HEMATOCRIT 26.8 % (42.0-54.0); HEMOGLOBIN 8.8 g/dL (13.5-17.5); IMMATURE GRANULOCYTES 0.5 % (0-5); MCH 29.3 pg (26.0-34.0); MCHC 32.8 g/dL (31.0-37.0); MCV 89.3 fL (80.0-100.0); MEAN PLATELET VOLUME 8.5 fL (7.4-10.4); NEUTROPHILS 62.2 % (40-80); WBC 4.2 10x3/uL (4.8-10.8)
[2018-05-22 05:18] LABS: PLATELET COUNT 191 10x3/uL (130-400)
[2018-05-22 05:23] LABS: ANION GAP 14.9 mmol/L (8-16); CALCIUM 8.5 mg/dL (8.5-10.1); CARBON DIOXIDE 28.2 mmol/L (21.0-32.0); CREATININE - SERUM 12.3 mg/dL (0.6-1.3); MAGNESIUM - SERUM 2.6 mg/dL (1.8-2.4); POTASSIUM - SERUM 5.1 mmol/L (3.5-5.1)
--- NOTE | 2018-05-22 08:13 | NUR ---
PT A/O LYING IN BED. CATHETER CARE PREFORMED. PAIN PILL ADMIN. PT IS IN GOOD SPIRITS AND READY TO GO TO OPERATION. NO CONCERNS/COMPLAINTS VOICED AT THIS TIME. CL IN REACH. SRX2.
[2018-05-22 08:59] VITALS: BP 152/87
--- NOTE | 2018-05-22 09:48 | NUR ---
EKG DONE FOR PREOP. CALLED [facility] TO SEE ABOUT MEDICAITONS FOR PREOP NONE ARE IN AT THIS TIME. NO ANSWER OF YET.
[2018-05-22 13:27] VITALS: BP 197/92
--- NOTE | 2018-05-22 15:28 | NUR ---
RECIEVED PT FROM RECOVERY. BLEEDING MINIMLAL AT SITE. NEW RIGHT CHEST HEMESPLIT PLACED. PT RECIEVED BUPERNEX, WANTS MORE PAIN MEDICATION. CL IN REACH. WILL MONITOR
[2018-05-22 16:09] VITALS: BP 158/98
--- NOTE | 2018-05-22 16:12 | NUR ---
WATER METER READER NOTE: PT RESTING IN BED. HEMOSPLIT REPLACED EARLY IN OR. CHEST RISING AND FALLIN O2 @ 2 LITERS NC.FC DRAINING YELLOW URINE TO GRAVITY. NO S/S OF ACUTE DISTRESS. CL IN PLACE.
--- NOTE | 2018-05-22 16:46 | NUR ---
WENT TO CHANGE PTS DRESSING, PT REQUESTED THAT WE WAIT UNTIL TOMORROW. STATES HE'S IN TOO MUCH PAIN WITH HIS NEW HEMESPLIT AND DOESN'T WANT TO BE MESSED WITH.
--- NOTE | 2018-05-22 19:25 | NUR ---
PT RESTING IN BED WITH EYES OPEN. ALERT AND ORIENTED X 3. PT VOICED COMPLAINT OF EMILY LEG PAIN LEVEL OF 7 AT THIS TIME. REQUESTED AND MEDICATED PER MAR. RIGHT SUBCLAVIAN TL IV NOTED. RIGHT SIDE HEMISPLIT CATH ALSO IN PLACE. DRESSING IS CDI. CASTRO CATH IS PATENT AND DRAINING TO A GRAVITY BAG. SR'S ARE UP X 3 IN BED. CALL LIGHT AND BEDSIDE TABLE ARE WITHIN EASY REACH.
[2018-05-22 19:45] VITALS: BP 144/85
--- NOTE | 2018-05-22 21:12 | NUR ---
PT IS RESTING IN BED WATCHING TV. NO ACUTE DISTRESS NOTED.
[2018-05-22 23:41] VITALS: BP 143/85
--- NOTE | 2018-05-23 00:23 | NUR ---
PT RESTING IN BED WITH EYES CLOSED. NO DISTRESS NOTED.
[2018-05-23 03:49] VITALS: BP 147/85
--- NOTE | 2018-05-23 04:07 | NUR ---
PT RESTING IN BED WITH NO DISTRESS. RESPS NONLABORED. MONITOR AND CPOC. CALL LIGHT IN REACH.
[2018-05-23 06:25] LABS: EOSINOPHILS 4.1 % (0-7); HEMATOCRIT 27.7 % (42.0-54.0); HEMOGLOBIN 8.9 g/dL (13.5-17.5); IMMATURE GRANULOCYTES 0.5 % (0-5); LYMPHOCYTES 18.5 % (15-50); MCH 29.1 pg (26.0-34.0); MCHC 32.1 g/dL (31.0-37.0); MCV 90.5 fL (80.0-100.0); MONOCYTES 12.1 % (2-11); NEUTROPHILS 63.8 % (40-80); PLATELET COUNT 190 10x3/uL (130-400); RBC 3.06 10x6/uL (4.20-6.10); RDW 14.9 % (11.5-14.5); WBC 3.9 10x3/uL (4.8-10.8)
[2018-05-23 06:42] LABS: ANION GAP 15.1 mmol/L (8-16); CALCIUM 8.5 mg/dL (8.5-10.1); CARBON DIOXIDE 27.8 mmol/L (21.0-32.0); CREATININE - SERUM 11.6 mg/dL (0.6-1.3); MAGNESIUM - SERUM 2.4 mg/dL (1.8-2.4); POTASSIUM - SERUM 4.9 mmol/L (3.5-5.1)
--- NOTE | 2018-05-23 07:14 | NUR ---
REPORT RECEIVED. WILL CONTINUE WITH POC. PT CURRENTLY LYING SUPINE, RESTING. CALL LIGHT W/I REACH. RR EVEN AND UNLABORED ON RA. R.SUB CVL IS SALINE LOCKED. PT DENIES ANY NEEDS AT THIS TIME. WILL CTM.
[2018-05-23 08:10] VITALS: BP 153/88
--- NOTE | 2018-05-23 08:51 | MORECARE ---
CASE MANAGEMENT DISCHARGE SUMMARY PATIENT: KENNY JONES UNIT: [id number] ADM DATE: 05/01/18 AGE: 52 : 67 SEX: M ROOM/BED: D.2103 AUTHOR: MARGE,DOC PHYSICIAN: REFERRING PHYSICIAN: HANNAH HOBSON MD DATE OF SERVICE: 05/23/18 Discharge Plan Patient Name: KENNY JONES Facility: [facility]:Early : 1965 Planned Disposition: [facility] Facility Anticipated Discharge Date: Discharge Date: Expected LOS: Initial Reviewer: [id number] Initial Review Date: 05/06/2018 Generated: 05/23/18 9:51 am Comments DCP- Discharge Planning Updated by [id number]: Markie Burnette on 05/23/18 7:[address] Patient Name: KENNY JONES Encounter No: [id number] : 1965 Primary Insurance: [facility] [employer] [employer] Anticipated DC Date: Planned Disposition: [facility] Facility External Planned Provider:[facility], MEDICARE REHAB BED DCP follow-up note: CM FAXED UPDATE TO [facility]IA [facility], , FOR REHAB REQUEST. CM WAITING ADMISSION DETERMINATION FROM [facility] FOR REHAB, INSURANCE AUTHORIZATION FOR REHAB SERVICES FROM PT'S INSURANCE. OUTPATIENT DIALYSIS CLINIC ARRANGEMENT COMPLETED FOR [facility], MWF, 0745AM, START DATE 05-23-18 IF REHAB PLACEMENT IS SECURED. DIOR Ocampo DCP- Discharge Planning Updated by [email or web address]: Markie Burnette on 05/20/18 1:[address] Patient Name: KENNY JONES Encounter No: [id number] : 1965 Primary Insurance: [facility] [employer] Anticipated DC Date: Planned Disposition: [facility] Facility External Planned Provider: [facility], MEDICARE REHAB BED DCP follow-up note: CM SPOKE TO RAUL OF [facility], THEY ARE STILL WAITING ON INSURANCE AUTHORIZATION FROM PT'S INSURANCE COMPANY. CM RECEIVED MESSAGE FROM KENYATTA OF [facility], PT HAS BEEN ACCEPTED FOR OUTPATIENT DIALYSIS, MWF, 0745AM AT [facility]. PT CAN START ON 05-23-18. CM NOTIFIED RAUL OF [facility]. CM WAITING ADMISSION DETERMINATION FROM [facility] FOR REHAB, INSURANCE AUTHORIZATION FOR REHAB SERVICES FROM PT'S INSURANCE. OUTPATIENT DIALYSIS CLINIC ARRANGEMENT COMPLETED FOR [facility], MWF, 0745AM, START DATE 05-23-18 IF REHAB PLACEMENT IS SECURED. Markie Burnette CASE PATRICIA DCP- Discharge Planning Updated by [id number]: Markie Brunette on 05/19/18 3:[address] Patient Name: KENNY JONES Encounter No: [id number] : 1965 Primary Insurance: [facility] [employer] [employer]UT[facility] Anticipated DC Date: Planned Disposition: [facility] Facility External Planned Provider: [facility], MEDICARE REHAB BED DCP follow-up note: [facility] APPROVED FOR NURSING HOME FACILITY ENTRY FOR 60 DAYS OF REHAB. CM FAXED UPDATE TO [facility]IA [employer] AT [phone]. CM SPOKE TO KENYATTA OF [facility] WHO WILL CHECK ON OUTPATIENT DIALYSIS CLINIC ACCEPTANCE. CM WAITING ADMISSION DETERMINATION FROM [facility] FOR REHAB, INSURANCE AUTHORIZATION FOR REHAB SERVICES FROM PT'S INSURANCE AND OUTPATIENT DIALYSIS CLINIC ARRANGEMENT BY [facility] COORDINATOR. DIOR Ocampo DCP- Discharge Planning Updated by [id number]: Markie Burnette on 05/16/18 3:[address] Patient Name: KENNY JONES Encounter No: [id number] : 1965 Primary Insurance: [facility] [employer] Anticipated DC Date: Planned Disposition: [facility] Facility External Planned Provider: [facility], MEDICARE REHAB BED DCP follow-up note: CM RECEIVED [facility] APPROVAL FOR NURSING HOME FACILITY ENTRY FOR 60 DAYS. CM FAXED UPDATE AND [facility] APPROVAL TO [facility]IA [employer] AT [phone]. CM WAITING ADMISSION DETERMINATION FROM [facility] FOR REH[facility], INSURANCE AUTHORIZATION FOR REHAB SERVICES FROM PT'S INSURANCE AND OUTPATIENT DIALYSIS CLINIC ARRANGEMENT BY [facility] COORDINATOR. Markie Burnette CASE PATRICIA DCP- Discharge Planning Updated by [id number]: Markie Burnette on 05/13/18 6:[address] Patient Name: KENNY CATALANB Encounter No: [id number] : 1965 Primary Insurance: [facility] [employer] Anticipated DC Date: Planned Disposition: [facility] Facility External Planned Provider: [facility], MEDICARE REHAB BED DCP follow-up note: CM MET WITH PT IN ROOM TO COMPLETE [place] SCREENING ASSESSMENT. SCREENING FORMS COMPELTED AND SIGNED. CM FAXED TO [employer] [facility] AT [phone]. CM WAITING [facility] SCREENING COMPLETION. CM WAITING ADMISSION DETERMINATION FROM [facility] FOR REHAB, INSURANCE AUTHORIZATION FOR REHAB SERVICES FROM PT'S INSURANCE AND OUTPATIENT DIALYSIS CLINIC ARRANGEMENT BY [facility] COORDINATOR. DIOR Ocampo DCP- Discharge Planning Updated by [id number]: Markie Burnette on 05/12/18 4:[address] Patient Name: KENNY CATALANB Encounter No: [id number] : 1965 Primary Insurance: [facility] [employer] Anticipated DC Date: Planned Disposition: [facility] Facility External Planned Provider: [facility], MEDICARE REHAB BED DCP follow-up note: CM MET WITH PT IN ROOM TO DISCUSS DISCHARGE PLANNING AND NEEDS. PT REPORTS HE CANNOT GO HOME ALONE LIKE THIS AND NEEDS REHAB FIRST. CM DISCUSSED REHAB OPTIONS AND LOCATIONS. PT DOES NOT WANT [facility] C[facility] AND ASKED FOR [facility] FOR REHAB SERVICES. CHOICE LETTER SIGNED FOR [facility]. CM ADVISED PT THAT KENYATTA CHRISTOPHER OF [facility] WOULD BE IN CONTACT WITH PT REGARDING OUTPATIENT DIALYSIS CLINIC ARRANGEMENTS. PT REPORTS LIVING IN [facility] AND HOPES TO BE INDEPENDENT AND RIDING HIS SCOOTER FOR TRANSPORT AFTER REHAB IS COMPLETED. PT REPORTS HIS BROTHER IS ASSISTING WITH CARING FOR PT'S DOG AT HOME AND PAYING PT'S BILLS WITH PT'S CHECK WHILE PT IS IN THE HOSPITAL. PT IS NOT ELIGIBLE FOR FREE TRANSPORT WITH MEDICAID TRANSPORTATION HE IS "QMB" ONLY. CM FAXED REFERRAL TO [facility] VIA [employer] AT [phone]. CM WAITING ADMISSION DETERMINATION FROM [facility] FOR REH[facility], INSURANCE AUTHORIZATION FOR REHAB SERVICES FROM PT'S INSURANCE AND OUTPATIENT DIALYSIS CLINIC ARRANGEMENT BY [employer] [facility] COORDINATOR. Markie Burnette CASE PATRICIA DCP- Discharge Planning Updated by [id number]: Markie Burnette on 05/12/18 11:[address] Patient Name: KENNY JONES Encounter No: [id number] : 1965 Primary Insurance: [facility] [employer] [employer] Anticipated DC Date: Planned Disposition: Home DCP follow-up note: CM RECEIVED ORDER FOR OUTPATIENT DIALYSIS AND POSSIBLE REHAB PLACEMENT NEEDS. RN CM HOUSE NOTIFED KENYATTA OF [facility]. CM ATTEMPTED TO MEET WITH PT FOR INITIAL ASSESSMENT OF DISCHARGE NEEDS. PT WAS NOT IN ROOM AT APPROXIMATELY [id number] HOURS. CM TO ATTEMPT ASSESSMENT OF PT AT A LATER TIME. Markie Burnette, CASE MANAGEMENT DCP- Discharge Planning Updated by [id number]: Sonia Wyatt on 05/06/18 8:[address] Patient Name: KENNY JONES Admission Status: ER Accout number: [id number] Admission Date: 05-01-2018 : 1965 Admission Diagnosis:TOXIC ENCEPHALOPATHY Attending: HANNAH HOBSON Current LOS: 5 Anticipated DC Date: Planned Disposition: Home Primary Insurance: [facility] [employer] SOLUT[facility] Discharge Planning Comments: CM met with patient at bedside after obtaining permission. Patient states he was living at home alone. Patient plans to return to his apartment upon discharge. Patient may need rehab before discharge. Patient denies any needs at this time. CM will continue to follow and assist with discharge planning / needs. Collection Support Specialist: Sonia Wyatt DCPIA - Discharge Planning Initial Assessment Updated by [email or web address]: Sonia Wyatt on 05/06/18 8:59 pm * Is the patient Alert and Oriented? Yes * How many steps to enter\\exit or inside your home? * PCP Deirdre Rose * Pharmacy [facility] * Preadmission Environment Home Alone * ADLs Independent * Equipment None * List name and contact numbers for known caregivers / representatives who currently or will assist patient after discharge: Bryon Jones - Brother - [phone] * Verbal permission to speak to the caregivers and representatives has been obtained from the patient. N/A * Community resources currently utilized None * Additional services required to return to the preadmission environment? No * Can the patient safely return to the preadmission environment? Yes * Has this patient been hospitalized within the prior 30 days at any hospital? Yes Coverage Notice Reviewer: [id number] - Markie Burnette Notice Issued Date-Time: 05/12/2018 13:25 Notice Type: Patient Choice Letter Notice Delivered To: Patient Relationship to Patient: Batch Still Operator Name: Delivery Method: HAND - Hand Delivered Sagrario Days: Prior Verbal Notification: Recipient Understood Notice: Yes Recipient Signature: Yes Med Rec Note Co-signed by Attending: Coverage Notice Comment: [facility] Last DP export: 05/20/18 1:45 p Patient Name: KENNY JONES Page 63110 at 0851 All edits/amendments must be made on the electronic document DICTATION DATE: 05/23/18850 MEMBER SERVICES REPRESENTATIVE: SPENCER 05/23/18850 RPT#: [id number] DC DATE: STATUS: ADM IN [facility] [address] [place] [address] END OF REPORT
--- NOTE | 2018-05-23 09:20 | NUR ---
AM MEDICATIONS ADMINISTERED. PT TRANSFERED TO DIALYSIS. WILL CTM.
--- NOTE | 2018-05-23 09:22 | NUR ---
IN DIALYSIS AT THIS TIME. WILL CONT. PLAN OF CARE.
--- NOTE | 2018-05-23 15:40 | NUR ---
PERFORMED DRESSING CHANGE ON RIGHT THIGH, BOTH INSIDE AND OUTSIDE INSCISION. NO DRAINAGE RECORDED. SUTURES AND MOHSEN IN PLACE. PLACED XEROFORM, GAUZE, AND MEDAPORE TAPE OVER INCISIONS. PT TOLERATED WELL. WILL CTM.
[2018-05-23 16:46] VITALS: BP 144/97
--- NOTE | 2018-05-23 18:02 | NUR ---
OT NOTE: PT COMPLETED SIMPLE HYGIENE TASK WITH SET UP. PT COMPLETED BUE AROM EXS. THANK YOU, CELESTINA BAEZA
--- NOTE | 2018-05-23 19:30 | NUR ---
RECEIVED REPORT, WILL ASSUME CARE OF PT, SLEEPING, BED IS LOW, SRX2, CALL LIGHT IN REACH, WILL CONTINUE PLAN OF CARE
[2018-05-23 20:00] VITALS: BP 137/90
--- NOTE | 2018-05-23 20:15 | NUR ---
COMPLAINS OF PAIN, GAVE NORCO ORDER
[2018-05-24] VITALS: BP 140/91
--- NOTE | 2018-05-24 03:20 | NUR ---
LYING IN BED, RESPIRATIONS EVEN AND UNLABORED. CALL LIGHT IN REACH, WILL CONTINUE WITH PLAN OF CARE.
[2018-05-24 04:00] VITALS: BP 152/92
[2018-05-24 06:47] LABS: BASOPHILS 0.6 % (0-2); EOSINOPHILS 4.3 % (0-7); HEMATOCRIT 29.2 % (42.0-54.0); HEMOGLOBIN 9.2 g/dL (13.5-17.5); IMMATURE GRANULOCYTES 0.4 % (0-5); LYMPHOCYTES 17.4 % (15-50); MCHC 31.5 g/dL (31.0-37.0); MCV 92.1 fL (80.0-100.0); MEAN PLATELET VOLUME 9.1 fL (7.4-10.4); MONOCYTES 12.5 % (2-11); NEUTROPHILS 64.8 % (40-80); PLATELET COUNT 202 10x3/uL (130-400); RBC 3.17 10x6/uL (4.20-6.10); RDW 14.9 % (11.5-14.5)
[2018-05-24 07:05] LABS: ANION GAP 12.6 mmol/L (8-16); CALCIUM 8.7 mg/dL (8.5-10.1); MAGNESIUM - SERUM 2.2 mg/dL (1.8-2.4); POTASSIUM - SERUM 4.6 mmol/L (3.5-5.1)
[2018-05-24 07:10] LABS: WBC 4.9 10x3/uL (4.8-10.8)
[2018-05-24 07:14] LABS: CREATININE - SERUM 7.5 mg/dL (0.6-1.3)
[2018-05-24 08:45] VITALS: BP 138/95
--- NOTE | 2018-05-24 09:37 | NUR ---
PT C/O NAUSEA REQUESTED AND PROVIDED WITH PRN ZOFRAN. PT VOICED THANKS AND DENIES ANY QUESTIONS OR CONCERNS. CL IN REACH. WILL CTM.
--- NOTE | 2018-05-24 11:56 | OP ---
PATIENT NAME: KENNY JONES MEDICAL RECORD: [id number] :[birth year] LOCATION:D.M2 D.2108 ADMISSION DATE:05/01/18 SURGEON: NORY PIRES MD DATE OF OPERATION: 05/22/2018 PREOPERATIVE DIAGNOSES: 1. Malfunctioning hemodialysis catheter. 2. Acute kidney disease. 3. Hepatitis C. 4. GERD. 5. Bipolar disorder. 6. Schizophrenia. POSTOPERATIVE DIAGNOSES: 1. Malfunctioning hemodialysis catheter. 2. Acute kidney disease. 3. Hepatitis C. 4. GERD. 5. Bipolar disorder. 6. Schizophrenia. PROCEDURES: 1. Right IJ HemoSplit catheter exchange to a 23-cm HemoSplit. 2. Fluoroscopic interpretation. SURGEON: Nory Pires MD REPORT OF PROCEDURE: The patient's right neck and indwelling catheters were prepped and draped in sterile fashion. A cutdown was made on the right neck overlying the HemoSplit catheter. This catheter was pulled up through the wound and transected. The distal portion was pulled out. The proximal portion was left in place and a guidewire was advanced through it. The HemoSplit catheter was then completely removed, leaving the wire in position in the venous system. Fluoro was used to note that the wire was in good position. We then measured out an area on the right lateral chest and made a small skin incision. Through this, we were able to tunnel the new 23-cm HemoSplit catheter to the wire exit site. The dilator trocar device was placed over the wire and the wire and dilator were removed. The catheter tip was advanced through the trocar and the trocar was then removed. As we pulled back the catheter, we were still getting a kinking to the midportion of the catheter as it entered the neck. I dissected down little further on the neck, trying to free up some of the tissues, and really could never find any distinct reason why I was doing this. We then decided to place a new catheter. This catheter was transected and a guidewire was advanced through it. The catheter was completely removed. At this point, another catheter was tunneled between the opening on the right lateral chest and the wire exit site. At this time, we tried to go with a more gentle curve around towards the patient's shoulder. The dilator trocar device was then placed over the wire and the wire and dilator were removed. The catheter tip was advanced through the trocar and the trocar was then removed. At this point, we had a normal gentle curvature to the catheter with no kinking. The catheter aspirated nonpulsatile dark blood and flushed easily with heparinized saline. This was sutured into place with 2-0 Prolenes and the skin incisions were all closed with subcutaneous 5-0 Monocryl. COMPLICATIONS: None. OPERATIVE REPORT [id number] KENNY JONES CONDITION: Stable. ANESTHESIA: General endotracheal. BLOOD LOSS: 50 mL. TRANSINT:[id number] Voice Confirmation ID: [id number] DOCUMENT ID: [id number] NORY PIRES MD at 1156 CC: [id number] DICTATION DATE: 05/22/18 1156 HAT AND CAP PARTS CUTTER HAND: 05/22/18 1423 ADM IN [facility] [address] [place] [address]
[2018-05-24 12:13] VITALS: BP 131/80
--- NOTE | 2018-05-24 13:17 | MORECARE ---
CASE MANAGEMENT DISCHARGE SUMMARY PATIENT: KENNY JONES UNIT: [id number] ADM DATE: 05/01/18 AGE: 52 : 67 SEX: M ROOM/BED: D.2106 AUTHOR: MARGE,DOC PHYSICIAN: REFERRING PHYSICIAN: HANNAH HOBSON MD DATE OF SERVICE: 05/24/18 Discharge Plan Patient Name: KENNY JONES Facility[facility] : 1965 Planned Disposition: Long-Term Facility Anticipated Discharge Date: Discharge Date: Expected LOS: Initial Reviewer: [id number] Initial Review Date: 05/06/2018 Generated: 05/24/18 2:17 pm Comments DCP- Discharge Planning Updated by [id number]: Markie Burnette on 05/23/18 7:[address] Patient Name: KENNY JONES Encounter No: [id number] : 1965 Primary Insurance: [facility] [employer] [employer]UT[employer] Anticipated DC Date: Planned Disposition: Long-Term Facility External Planned Provider:[facility], MEDICARE REHAB BED DCP follow-up note: CM FAXED UPDATE TO [facility]IA [facility], , FOR REHAB REQUEST. CM WAITING ADMISSION DETERMINATION FROM [facility] FOR REHAB, INSURANCE AUTHORIZATION FOR REHAB SERVICES FROM PT'S INSURANCE. OUTPATIENT DIALYSIS CLINIC ARRANGEMENT COMPLETED FOR [facility], MWF, 0745AM, START DATE 05-23-18 IF REHAB PLACEMENT IS SECURED. DIOR Ocampo DCP- Discharge Planning Updated by [id number]: Markie Burnette on 05/20/18 1:[address] Patient Name: KENNY JONES Encounter No: [id number] : 1965 Primary Insurance: [facility] [employer] Anticipated DC Date: Planned Disposition: Long-Term Facility External Planned Provider: [facility], MEDICARE REHAB BED DCP follow-up note: CM SPOKE TO RAUL OF [facility], THEY ARE STILL WAITING ON INSURANCE AUTHORIZATION FROM PT'S INSURANCE COMPANY. CM RECEIVED MESSAGE FROM KENYATTA OF [facility], PT HAS BEEN ACCEPTED FOR OUTPATIENT DIALYSIS, MWF, 0745AM AT [facility]. PT CAN START ON 05-23-18. CM NOTIFIED RAUL OF [facility]. CM WAITING ADMISSION DETERMINATION FROM [facility] FOR REHAB, INSURANCE AUTHORIZATION FOR REHAB SERVICES FROM PT'S INSURANCE. OUTPATIENT DIALYSIS CLINIC ARRANGEMENT COMPLETED FOR [facility], MWF, 0745AM, START DATE 05-23-18 IF REHAB PLACEMENT IS SECURED. Markie Burnette CASE PATRICIA DCP- Discharge Planning Updated by [id number]: Markie Burnette on 05/19/18 3:[address] Patient Name: KENNY JONES Encounter No: [id number] : 1965 Primary Insurance: [facility] [employer] Anticipated DC Date: Planned Disposition: Long-Term Facility External Planned Provider: [facility], MEDICARE REHAB BED DCP follow-up note: [facility] APPROVED FOR PENITENTIARY FACILITY ENTRY FOR 60 DAYS OF REHAB. CM FAXED UPDATE TO [facility] [employer] AT [phone]. CM SPOKE TO KENYATTA OF [facility] WHO WILL CHECK ON OUTPATIENT DIALYSIS CLINIC ACCEPTANCE. CM WAITING ADMISSION DETERMINATION FROM [facility] FOR REHAB, INSURANCE AUTHORIZATION FOR REHAB SERVICES FROM PT'S INSURANCE AND OUTPATIENT DIALYSIS CLINIC [facility] COORDINATOR. DIOR Ocampo DCP- Discharge Planning Updated by [email or web address]: Markie Burnette on 05/16/18 3:[address] Patient Name: KENNY JONES Encounter No: [id number] : 1965 Primary Insurance: [facility] [employer] Anticipated DC Date: Planned Disposition: Long-Term Facility External Planned Provider: [facility], MEDICARE REHAB BED DCP follow-up note: CM RECEIVED [facility] APPROVAL FOR PENITENTIARY FACILITY ENTRY FOR 60 DAYS. CM FAXED UPDATE AND [facility] APPROVAL TO [facility] [employer] AT [phone]. CM WAITING ADMISSION DETERMINATION FROM [facility] FOR REH[facility], INSURANCE AUTHORIZATION FOR REHAB SERVICES FROM PT'S INSURANCE AND OUTPATIENT DIALYSIS CLINIC ARRANGEMENT BY [facility]WAYS COORDINATOR. Markie Burnette CASE PATRICIA DCP- Discharge Planning Updated by [email or web address]: Markie Burnette on 05/13/18 6:[address] Patient Name: KENNY CATALANB Encounter No: [id number] : 1965 Primary Insurance: [facility] [employer] Anticipated DC Date: Planned Disposition: Long-Term Facility External Planned Provider: [facility], MEDICARE REHAB BED DCP follow-up note: CM MET WITH PT IN ROOM TO COMPLETE [place] SCREENING ASSESSMENT. SCREENING FORMS COMPELTED AND SIGNED. CM FAXED TO [email or web address] [facility] AT [phone]. CM WAITING [facility] SCREENING COMPLETION. CM WAITING ADMISSION DETERMINATION FROM [facility], INSURANCE AUTHORIZATION FOR REHAB SERVICES FROM PT'S INSURANCE AND OUTPATIENT DIALYSIS CLINIC ARRANGEMENT BY [facility] PATIENT PATHWAYS COORDINATOR. DIOR Ocampo DCP- Discharge Planning Updated by [email or web address]: Markie Burnette on 05/12/18 4:[address] Patient Name: KENNY CATALANB Encounter No: [id number] : 1965 Primary Insurance: [facility] [employer] Anticipated DC Date: Planned Disposition: Long-Term Facility External Planned Provider: [facility], MEDICARE REHAB BED DCP follow-up note: CM MET WITH PT IN ROOM TO DISCUSS DISCHARGE PLANNING AND NEEDS. PT REPORTS HE CANNOT GO HOME ALONE LIKE THIS AND NEEDS REHAB FIRST. CM DISCUSSED REHAB OPTIONS AND LOCATIONS. PT DOES NOT WANT GRAPHICS INTERN CARE AND ASKED FOR [facility] FOR REHAB SERVICES. CHOICE LETTER SIGNED FOR [facility]. CM ADVISED PT THAT KENYATTA CHRISTOPHER OF [facility] WOULD BE IN CONTACT WITH PT REGARDING OUTPATIENT DIALYSIS CLINIC ARRANGEMENTS. PT REPORTS LIVING IN [place] AND HOPES TO BE INDEPENDENT AND RIDING HIS SCOOTER FOR TRANSPORT AFTER REHAB IS COMPLETED. PT REPORTS HIS BROTHER IS ASSISTING WITH CARING FOR PT'S DOG AT HOME AND PAYING PT'S BILLS WITH PT'S CHECK WHILE PT IS IN THE HOSPITAL. PT IS NOT ELIGIBLE FOR FREE TRANSPORT WITH MEDICAID TRANSPORTATION HE IS "QMB" ONLY. CM FAXED REFERRAL TO [facility] [employer] AT [phone]. CM WAITING ADMISSION DETERMINATION FROM [facility] FOR [facility], INSURANCE AUTHORIZATION FOR REHAB SERVICES FROM PT'S INSURANCE AND OUTPATIENT DIALYSIS CLINIC ARRANGEMENT BY [employer] PATIENT PATHWAYS COORDINATOR. Markie Burnette CASE PATRICIA DCP- Discharge Planning Updated by [id number]: Markie Burnette on 05/12/18 11:[address] Patient Name: KENNY JONES Encounter No: [id number] : 1965 Primary Insurance: [facility] [employer] Anticipated DC Date: Planned Disposition: Home DCP follow-up note: CM RECEIVED ORDER FOR OUTPATIENT DIALYSIS AND POSSIBLE REHAB PLACEMENT NEEDS. RN CM HOUSE NOTIFED KENYATTA OF [facility] FOR NEW DAILYSIS CLINIC ARRANGEMENT. CM ATTEMPTED TO MEET WITH PT FOR INITIAL ASSESSMENT OF DISCHARGE NEEDS. PT WAS NOT IN ROOM AT APPROXIMATELY 78037 HOURS. CM TO ATTEMPT ASSESSMENT OF PT AT A LATER TIME. Markie Burnette, CASE MANAGEMENT DCP- Discharge Planning Updated by [email or web address]: Sonia Wyatt on 05/06/18 8:[address] Patient Name: KENNY JONES Admission Status: ER Accout number: [id number] Admission Date: 05-01-2018 : 1965 Admission Diagnosis:TOXIC ENCEPHALOPATHY Attending: HANNAH HOBSON Current LOS: 5 Anticipated DC Date: Planned Disposition: Home Primary Insurance: [facility] [employer] [employer] Discharge Planning Comments: CM met with patient at bedside after obtaining permission. Patient states he was living at home alone. Patient plans to return to his apartment upon discharge. Patient may need rehab before discharge. Patient denies any needs at this time. CM will continue to follow and assist with discharge planning / needs. Director Of Event Sales: Sonia Wyatt DCPIA - Discharge Planning Initial Assessment Updated by [email or web address]: Sonia Wyatt on 05/06/18 8:59 pm * Is the patient Alert and Oriented? Yes * How many steps to enter\\exit or inside your home? * PCP Deirdre Rose * Pharmacy [facility] * Preadmission Environment Home Alone * ADLs Independent * Equipment None * List name and contact numbers for known caregivers / representatives who currently or will assist patient after discharge: Bryon Jones - Brother - [phone] * Verbal permission to speak to the caregivers and representatives has been obtained from the patient. N/A * Community resources currently utilized None * Additional services required to return to the preadmission environment? No * Can the patient safely return to the preadmission environment? Yes * Has this patient been hospitalized within the prior 30 days at any hospital? Yes External Providers External Provider: [facility] Next Contact Date: Service Request Date: Service Type: Resolution: Reviewer: Comments: Coverage Notice Reviewer: [id number] - Markie Burnette Notice Issued Date-Time: 05/12/2018 13:25 Notice Type: Patient Choice Letter Notice Delivered To: Patient Relationship to Patient: Skein Yard Drier Name: Delivery Method: HAND - Hand Delivered Sagrario Days: Prior Verbal Notification: Recipient Understood Notice: Yes Recipient Signature: Yes Med Rec Note Co-signed by Attending: Coverage Notice Comment: [facility] Last DP export: 05/23/18 7:51 a Patient Name: KENNY JONES Page 39997 at 1317 All edits/amendments must be made on the electronic document DICTATION DATE: 05/24/181316 TERMITE CONTROL SERVICER: SPENCER 05/24/181316 RPT#: [id number] DC DATE: STATUS: ADM IN [facility] [address] [place] [address] END OF REPORT
--- NOTE | 2018-05-24 13:26 | MORECARE ---
CASE MANAGEMENT DISCHARGE SUMMARY PATIENT: KENNY JONES UNIT: [id number] ADM DATE: 05/01/18 AGE: 52 : 67 SEX: M ROOM/BED: D.210 AUTHOR: MARGE,DOC PHYSICIAN: REFERRING PHYSICIAN: HANNAH HOBSON MD DATE OF SERVICE: 05/24/18 Discharge Plan Patient Name: KENNY JONES Facility: [facility]:[place] : 1965 Planned Disposition: Half-Way Facility Anticipated Discharge Date: Discharge Date: Expected LOS: Initial Reviewer: [id number] Initial Review Date: 05/06/2018 Generated: 05/24/18 2:25 pm Comments DCP- Discharge Planning Updated by [id number]: Jazmine Conroy on 05/24/18 12:[address] Patient Name: KENNY JONES Admission Status: ER Accout number: [id number] Admission Date: 05-01-2018 : 1965 Admission Diagnosis:TOXIC ENCEPHALOPATHY Attending: HANNAH HOBSON Current LOS: 23 Anticipated DC Date: Planned Disposition: Half-Way Facility Primary Insurance: [facility] MEDICARE SOLUTIONS Discharge Planning Comments: CM CALLED AND LEFT MSG WITH [facility] AND FAXED REFERRAL PAPERS. WAITING FOR CALL BACK FOR DETERMINATION. Dynamite Packing Machine Feeder: Jazmine Conroy DCP- Discharge Planning Updated by [id number]: Markie Burnette on 05/23/18 7:[address] Patient Name: KENNY JONES Encounter No: [id number] : 1965 Primary Insurance: [facility] MEDICARE SOLUTIONS Anticipated DC Date: Planned Disposition: Half-Way Facility External Planned Provider:[facility], MEDICARE REHAB BED DCP follow-up note: CM FAXED UPDATE TO [facility], , FOR REHAB REQUEST. CM WAITING ADMISSION DETERMINATION FROM [facility] FOR REH[facility], INSURANCE AUTHORIZATION FOR REHAB SERVICES FROM 'S INSURANCE. OUTPATIENT DIALYSIS CLINIC ARRANGEMENT COMPLETED FOR [facility], MWF, 0745AM, START DATE 05-23-18 IF REHAB PLACEMENT IS SECURED. Markie Burnette, CASE MANAGEMENT DCP- Discharge Planning Updated by [id number]: Markie Burnette on 05/20/18 1:[address] Patient Name: KENNY JONES Encounter No: [id number] : 1965 Primary Insurance: [facility] MEDICARE SOLUTIONS Anticipated DC Date: Planned Disposition: Half-Way Facility External Planned Provider: [facility], MEDICARE REHAB BED DCP follow-up note: CM SPOKE TO RAUL OF [facility], THEY ARE STILL WAITING ON INSURANCE AUTHORIZATION FROM PT'S INSURANCE COMPANY. CM RECEIVED MESSAGE FROM KENYATTA URENA [facility], PT HAS BEEN ACCEPTED FOR OUTPATIENT DIALYSIS, MWF, 0745AM AT [facility]. PT CAN START ON 05-23-18. CM NOTIFIED RAUL OF [facility]. CM WAITING ADMISSION DETERMINATION FROM [facility] FOR REHAB, INSURANCE AUTHORIZATION FOR REHAB SERVICES FROM PT'S INSURANCE. OUTPATIENT DIALYSIS CLINIC ARRANGEMENT COMPLETED FOR [facility], MWF, 0745AM, START DATE 05-23-18 IF REHAB PLACEMENT IS SECURED. Markie Burnette CASE MANAGEMENT DCP- Discharge Planning Updated by [email or web address]: Markie Burnette on 05/19/18 3:[address] Patient Name: KENNY JONES Encounter No: [id number] : 1965 Primary Insurance: [facility] MEDICARE SOLUTIONS Anticipated DC Date: Planned Disposition: Half-Way Facility External Planned Provider: [facility], MEDICARE REHAB BED DCP follow-up note: [facility] APPROVED FOR LONG-TERM FACILITY ENTRY FOR 60 DAYS OF REHAB. CM FAXED UPDATE TO [facility] AT [phone]. CM SPOKE TO KENYATTA URENA [facility] WHO WILL CHECK ON OUTPATIENT DIALYSIS CLINIC ACCEPTANCE. CM WAITING ADMISSION DETERMINATION FROM [facility] FOR [facility], INSURANCE AUTHORIZATION FOR REHAB SERVICES FROM PT'S INSURANCE AND OUTPATIENT DIALYSIS CLINIC ARRANGEMENT BY [facility] COORDINATOR. Markie Burnette CASE MANAGEMENT DCP- Discharge Planning Updated by [id number]: Markie Burnette on 05/16/18 3:[address] Patient Name: KENNY JONES Encounter No: [id number] : 1965 Primary Insurance: [facility] MEDICARE SOLUTIONS Anticipated DC Date: Planned Disposition: Half-Way Facility External Planned Provider: [facility], MEDICARE REHAB BED DCP follow-up note: CM RECEIVED [facility] APPROVAL FOR LONG-TERM FACILITY ENTRY FOR 60 DAYS. CM FAXED UPDATE AND [facility] APPROV[facility] TO [facility] AT [phone]. CM WAITING ADMISSION DETERMINATION FROM [facility] FOR [facility], INSURANCE AUTHORIZATION FOR REHAB SERVICES FROM PT'S INSURANCE AND OUTPATIENT DIALYSIS CLINIC ARRANGEMENT BY [facility] PATIENT PATHWAYS COORDINATOR. DIOR Ocampo MANAGEMENT DCP- Discharge Planning Updated by [id number]: Markie Burnette on 05/13/18 6:[address] Patient Name: KENNY JONES Encounter No: [id number] : 1965 Primary Insurance: [facility] MEDICARE SOLUTIONS Anticipated DC Date: Planned Disposition: Half-Way Facility External Planned Provider: [facility], MEDICARE REHAB BED DCP follow-up note: CM MET WITH PT IN ROOM TO COMPLETE [facility] SCREENING ASSESSMENT. SCREENING FORMS COMPELTED AND SIGNED. CM FAXED TO [facility] AT [phone]. CM WAITING [facility] SCREENING COMPLETION. CM WAITING ADMISSION DETERMINATION FROM [facility], INSURANCE AUTHORIZATION FOR REHAB SERVICES FROM PT'S INSURANCE AND OUTPATIENT DIALYSIS CLINIC ARRANGEMENT BY [facility] COORDINATOR. DIOR Ocampo DCP- Discharge Planning Updated by [id number]: Markie Burnette on 05/12/18 4:[address] Patient Name: KENNY JONES Encounter No: [id number] : 1965 Primary Insurance: [facility] MEDICARE SOLUTIONS Anticipated DC Date: Planned Disposition: Half-Way Facility External Planned Provider: [facility], MEDICARE REHAB BED DCP follow-up note: CM MET WITH PT IN ROOM TO DISCUSS DISCHARGE PLANNING AND NEEDS. PT REPORTS HE CANNOT GO HOME ALONE LIKE THIS AND NEEDS REHAB FIRST. CM DISCUSSED REHAB OPTIONS AND LOCATIONS. PT DOES NOT WANT ANNEALING OVEN OPERATOR CARE AND ASKED FOR [facility] FOR REHAB SERVICES. CHOICE LETTER SIGNED FOR [facility]. CM ADVISED PT THAT KENYATTA CHRISTOPHER OF [facility] WOULD BE IN CONTACT WITH PT REGARDING OUTPATIENT DIALYSIS CLINIC ARRANGEMENTS. PT RE[place]TS LIVING IN [place] AND HOPES TO BE INDEPENDENT AND RIDING HIS SCOOTER FOR TRANSPORT AFTER REHAB IS COMPLETED. PT REPORTS HIS BROTHER IS ASSISTING WITH CARING FOR PT'S DOG AT HOME AND PAYING PT'S BILLS WITH PT'S CHECK WHILE PT IS IN THE HOSPITAL. PT IS NOT ELIGIBLE FOR FREE TRANSPORT WITH MEDICAID TRANSPORTATION HE IS "QMB" ONLY. CM FAXED REFERRAL TO [facility] AT [phone]. CM WAITING ADMISSION DETERMINATION FROM [facility] FOR [facility], INSURANCE AUTHORIZATION FOR REHAB SERVICES FROM PT'S INSURANCE AND OUTPATIENT DIALYSIS CLINIC ARRANGEMENT BY [facility] PAT[facility] COORDINATOR. Markie Burnette CASE MANAGEMENT DCP- Discharge Planning Updated by [id number]: Markie Burnette on 05/12/18 11:[address] Patient Name: KENNY JONES Encounter No: [id number] : 1965 Primary Insurance: [facility] MEDICARE SOLUTIONS Anticipated DC Date: Planned Disposition: Home DCP follow-up note: CM RECEIVED ORDER FOR OUTPATIENT DIALYSIS AND POSSIBLE REHAB PLACEMENT NEEDS. RN CM HOUSE NOTIFED KENYATTA OF [facility] FOR NEW DAILYSIS CLINIC ARRANGEMENT. CM ATTEMPTED TO MEET WITH PT FOR INITIAL ASSESSMENT OF DISCHARGE NEEDS. PT WAS NOT IN ROOM AT APPROXIMATELY [address]124 HOURS. CM TO ATTEMPT ASSESSMENT OF PT AT A LATER TIME. DIOR Ocampo MANAGEMENT DCP- Discharge Planning Updated by [id number]: Sonia Wyatt on 05/06/18 8:[address] Patient Name: KENNY JONES Admission Status: ER Accout number: [id number] Admission Date: 05-01-2018 : 1965 Admission Diagnosis:TOXIC ENCEPHALOPATHY Attending: HANNAH HOBSON Current LOS: 5 Anticipated DC Date: Planned Disposition: Home Primary Insurance: [facility] MEDICARE SOLUTIONS Discharge Planning Comments: CM met with patient at bedside after obtaining permission. Patient states he was living at home alone. Patient plans to return to his apartment upon discharge. Patient may need rehab before discharge. Patient denies any needs at this time. CM will continue to follow and assist with discharge planning / needs. Dynamite Packing Machine Feeder: Sonia Wyatt DCPIA - Discharge Planning Initial Assessment Updated by [email or web address]: Sonia Wyatt on 05/06/18 8:59 pm * Is the patient Alert and Oriented? Yes * How many steps to enter\\exit or inside your home? * PCP Deirdre Rose * Pharmacy [facility] * Preadmission Environment Home Alone * ADLs Independent * Equipment None * List name and contact numbers for known caregivers / representatives who currently or will assist patient after discharge: Bryon Jones - Brother - [phone] * Verbal permission to speak to the caregivers and representatives has been obtained from the patient. N/A * Community resources currently utilized None * Additional services required to return to the preadmission environment? No * Can the patient safely return to the preadmission environment? Yes * Has this patient been hospitalized within the prior 30 days at any hospital? Yes Coverage Notice Reviewer: [id number] Lynne Aden [place] Notice Issued Date-Time: 05/12/2018 13:25 Notice Type: Patient Choice Letter Notice Delivered To: Patient Relationship to Patient: Cage Supervisor Name: Delivery Method: HAND - Hand Delivered Sagrario Days: Prior Verbal Notification: Recipient Understood Notice: Yes Recipient Signature: Yes Med Rec Note Co-signed by Attending: Coverage Notice Comment: [facility] Last DP export: 05/24/18 12:17 p Patient Name: KENNY JONES Page 82659 at 1326 All edits/amendments must be made on the electronic document DICTATION DATE: 05/24/18 1325 CONCRETE PAVEMENT INSTALLER: SPENCER 05/24/18 1325 RPT#: [id number] DC DATE: STATUS: ADM IN [facility] [address] [place] [address] END OF REPORT
--- NOTE | 2018-05-24 14:10 | MORECARE ---
CASE MANAGEMENT DISCHARGE SUMMARY PATIENT: KENNY JONES UNIT: [id number] ADM DATE: 05/01/18 AGE: 52 : 67 SEX: M ROOM/BED: D.2100 AUTHOR: MARGE,DOC PHYSICIAN: REFERRING PHYSICIAN: HANNAH HOBSON MD DATE OF SERVICE: 05/24/18 Discharge Plan Patient Name: KENNY JONES Facility: [facility]:[place] : 1965 Planned Disposition: Half-Way Facility Anticipated Discharge Date: Discharge Date: Expected LOS: Initial Reviewer: [id number] Initial Review Date: 05/06/2018 Generated: 05/24/18 3:10 pm Comments DCP- Discharge Planning Updated by [id number]: Jazmine Conroy on 05/24/18 12:[address] Patient Name: KENNY JONES Admission Status: ER Accout number: [id number] Admission Date: 05-01-2018 : 1965 Admission Diagnosis:TOXIC ENCEPHALOPATHY Attending: HANNAH HOBSON Current LOS: 23 Anticipated DC Date: Planned Disposition: Half-Way Facility Primary Insurance: [facility] MEDICARE SOLUTIONS Discharge Planning Comments: CM CALLED AND LEFT MSG WITH [facility] AND FAXED REFERRAL PAPERS. WAITING FOR CALL BACK FOR DETERMINATION. Mica Miner Blasting: Jazmine Conroy DCP- Discharge Planning Updated by [email or web address]: Markie Burnette on 05/23/18 7:[address] Patient Name: KENNY JONES Encounter No: [id number] : 1965 Primary Insurance: [facility] MEDICARE SOLUTIONS Anticipated DC Date: Planned Disposition: Half-Way Facility External Planned Provider:[facility], MEDICARE REHAB BED DCP follow-up note: CM FAXED UPDATE TO [facility], , FOR REHAB REQUEST. CM WAITING ADMISSION DETERMINATION FROM [facility] FOR [facility], INSURANCE AUTHORIZATION FOR REHAB SERVICES FROM 'S INSURANCE. OUTPATIENT DIALYSIS CLINIC ARRANGEMENT COMPLETED FOR [facility], MWF, 0745AM, START DATE 05-23-18 IF REHAB PLACEMENT IS SECURED. Markie Burnette, CASE MANAGEMENT DCP- Discharge Planning Updated by [email or web address]: Markie Burnette on 05/20/18 1:[address] Patient Name: KENNY JONES Encounter No: [id number] : 1965 Primary Insurance: [facility] MEDICARE SOLUTIONS Anticipated DC Date: Planned Disposition: Half-Way Facility External Planned Provider: [facility], MEDICARE REHAB BED DCP follow-up note: CM SPOKE TO RAUL OF [facility], THEY ARE STILL WAITING ON INSURANCE AUTHORIZATION FROM PT'S INSURANCE COMPANY. CM RECEIVED MESSAGE FROM KENYATTA URENA [facility], PT HAS BEEN ACCEPTED FOR OUTPATIENT DIALYSIS, MWF, 0745AM AT [facility]. PT CAN START ON 05-23-18. CM NOTIFIED RAUL OF [facility]. CM WAITING ADMISSION DETERMINATION FROM [facility] FOR REH[facility], INSURANCE AUTHORIZATION FOR REHAB SERVICES FROM PT'S INSURANCE. OUTPATIENT DIALYSIS CLINIC ARRANGEMENT COMPLETED FOR [facility], MWF, 0745AM, START DATE 05-23-18 IF REHAB PLACEMENT IS SECURED. Markie Burnette CASE MANAGEMENT DCP- Discharge Planning Updated by [id number]: Markie Burnette on 05/19/18 3:[address] Patient Name: KENNY JONES Encounter No: [id number] : 1965 Primary Insurance: [facility] MEDICARE SOLUTIONS Anticipated DC Date: Planned Disposition: Half-Way Facility External Planned Provider: [facility], MEDICARE REHAB BED DCP follow-up note: [facility] APPROVED FOR SENIOR CARE FACILITY ENTRY FOR 60 DAYS OF REHAB. CM FAXED UPDATE TO [facility] AT [phone]. CM SPOKE TO KENYATTA URENA [facility] WHO WILL CHECK ON OUTPATIENT DIALYSIS CLINIC ACCEPTANCE. CM WAITING ADMISSION DETERMINATION FROM [facility] FOR RE[facility], INSURANCE AUTHORIZATION FOR REHAB SERVICES FROM PT'S INSURANCE AND OUTPATIENT DIALYSIS CLINIC ARRANGEMENT BY [facility] COORDINATOR. Markie Burnette CASE MANAGEMENT DCP- Discharge Planning Updated by [id number]: Markie Burnette on 05/16/18 3:[address] Patient Name: KENNY JONES Encounter No: [id number] : 1965 Primary Insurance: [facility] MEDIC[facility] SOLUTIONS Anticipated DC Date: Planned Disposition: Half-Way Facility External Planned Provider: [facility], MEDICARE REHAB BED DCP follow-up note: CM RECEIVED [facility] APPROVAL FOR SENIOR CARE FACILITY ENTRY FOR 60 DAYS. CM FAXED UPDATE AND [facility] APPR[facility] TO [facility] AT [phone]. CM WAITING ADMISSION DETERMINATION FROM [facility] FOR [facility], INSURANCE AUTHORIZATION FOR REHAB SERVICES FROM PT'S INSURANCE AND OUTPATIENT DIALYSIS CLINIC ARRANGEMENT BY [facility] COORDINATOR. DIOR Ocampo MANAGEMENT DCP- Discharge Planning Updated by [id number]: Markie Burnette on 05/13/18 6:[address] Patient Name: KENNY JONES Encounter No: [id number] : 1965 Primary Insurance: [facility] MEDICARE SOLUTIONS Anticipated DC Date: Planned Disposition: Half-Way Facility External Planned Provider: [facility], MEDICARE REHAB BED DCP follow-up note: CM MET WITH PT IN ROOM TO COMPLETE [facility] SCREENING ASSESSMENT. SCREENING FORMS COMPELTED AND SIGNED. CM FAXED TO [facility] AT [phone]. CM WAITING [facility] SCREENING COMPLETION. CM WAITING ADMISSION DETERMINATION FROM [facility] FOR [facility], INSURANCE AUTHORIZATION FOR REHAB SERVICES FROM PT'S INSURANCE AND OUTPATIENT DIALYSIS CLINIC ARRANGEMENT BY [facility] COORDINATOR. DIOR Ocampo DCP- Discharge Planning Updated by [id number]: Markie Burnette on 05/12/18 4:[address] Patient Name: KENNY JONES Encounter No: [id number] : 1965 Primary Insurance: [facility] MEDICARE SOLUTIONS Anticipated DC Date: Planned Disposition: Half-Way Facility External Planned Provider: [facility], MEDICARE REHAB BED DCP follow-up note: CM MET WITH PT IN ROOM TO DISCUSS DISCHARGE PLANNING AND NEEDS. PT REPORTS HE CANNOT GO HOME ALONE LIKE THIS AND NEEDS REHAB FIRST. CM DISCUSSED REHAB OPTIONS AND LOCATIONS. PT DOES NOT WANT CARDIAC NURSE SPECIALIST CARE AND ASKED FOR [facility] FOR REHAB SERVICES. CHOICE LETTER SIGNED FOR [facility]. CM ADVISED PT THAT KENYATTA CHRISTOPHER OF [facility] WOULD BE IN CONTACT WITH PT REGARDING OUTPATIENT DIALYSIS CLINIC ARRANGEMENTS. PT RE[place]TS LIVING IN [place] AND HOPES TO BE INDEPENDENT AND RIDING HIS SCOOTER FOR TRANSPORT AFTER REHAB IS COMPLETED. PT REPORTS HIS BROTHER IS ASSISTING WITH CARING FOR PT'S DOG AT HOME AND PAYING PT'S BILLS WITH PT'S CHECK WHILE PT IS IN THE HOSPITAL. PT IS NOT ELIGIBLE FOR FREE TRANSPORT WITH MEDICAID TRANSPORTATION HE IS "QMB" ONLY. CM FAXED REFERRAL TO [facility] AT [phone]. CM WAITING ADMISSION DETERMINATION FROM [facility] FOR REH[facility], INSURANCE AUTHORIZATION FOR REHAB SERVICES FROM PT'S INSURANCE AND OUTPATIENT DIALYSIS CLINIC ARRANGEMENT BY [facility] PATIENT PATHWAYS COORDINATOR. Markie Burnette CASE MANAGEMENT DCP- Discharge Planning Updated by [id number]: Markie Burnette on 05/12/18 11:[address] Patient Name: KENNY JONES Encounter No: [id number] : 1965 Primary Insurance: [facility] MEDICARE SOLUTIONS Anticipated DC Date: Planned Disposition: Home DCP follow-up note: CM RECEIVED ORDER FOR OUTPATIENT DIALYSIS AND POSSIBLE REHAB PLACEMENT NEEDS. RN CM HOUSE NOTIFED KENYATTA OF [facility] FOR NEW DAILYSIS CLINIC ARRANGEMENT. CM ATTEMPTED TO MEET WITH PT FOR INITIAL ASSESSMENT OF DISCHARGE NEEDS. PT WAS NOT IN ROOM AT APPROXIMATELY [address] HOURS. CM TO ATTEMPT ASSESSMENT OF PT AT A LATER TIME. DIOR Ocampo MANAGEMENT DCP- Discharge Planning Updated by [id number]: Sonia Wyatt on 05/06/18 8:[address] Patient Name: KENNY JONES Admission Status: ER Accout number: [id number] Admission Date: 05-01-2018 : 1965 Admission Diagnosis:TOXIC ENCEPHALOPATHY Attending: HANNAH HOBSON Current LOS: 5 Anticipated DC Date: Planned Disposition: Home Primary Insurance: [facility] MEDICARE SOLUTIONS Discharge Planning Comments: CM met with patient at bedside after obtaining permission. Patient states he was living at home alone. Patient plans to return to his apartment upon discharge. Patient may need rehab before discharge. Patient denies any needs at this time. CM will continue to follow and assist with discharge planning / needs. Mica Miner Blasting: Sonia Wyatt DCPIA - Discharge Planning Initial Assessment Updated by [id number]: Sonia Wyatt on 05/06/18 8:59 pm * Is the patient Alert and Oriented? Yes * How many steps to enter\\exit or inside your home? * PCP Deirdre Rose * Pharmacy [facility] * Preadmission Environment Home Alone * ADLs Independent * Equipment None * List name and contact numbers for known caregivers / representatives who currently or will assist patient after discharge: Bryon Jones - Brother - [phone] * Verbal permission to speak to the caregivers and representatives has been obtained from the patient. N/A * Community resources currently utilized None * Additional services required to return to the preadmission environment? No * Can the patient safely return to the preadmission environment? Yes * Has this patient been hospitalized within the prior 30 days at any hospital? Yes External Providers External Provider: [facility] and [facility] Next Contact Date: Service Request Date: Service Type: Resolution: Reviewer: Comments: Coverage Notice Reviewer: [id number] Lynne Burnette Notice Issued Date-Time: 05/12/2018 13:25 Notice Type: Patient Choice Letter Notice Delivered To: Patient Relationship to Patient: Liquor Rectifier Name: Delivery Method: HAND - Hand Delivered Sagrario Days: Prior Verbal Notification: Recipient Understood Notice: Yes Recipient Signature: Yes Med Rec Note Co-signed by Attending: Coverage Notice Comment: [facility] Last DP export: 05/24/18 12:25 p Patient Name: KENNY JONES Page 06605 at 1410 All edits/amendments must be made on the electronic document DICTATION DATE: 05/24/18 1410 FIGURE SKATER: SPENCER 05/24/18 1410 RPT#: [id number] DC DATE: STATUS: ADM IN [facility] [address] [place] [address] END OF REPORT
--- NOTE | 2018-05-24 15:19 | NUR ---
Pt is on a Renal diet with 25% average po intake past 3 days Pt reports he has had nausea x1week and hasnt been able to eat much Pt reports he is not able to eat or drink when he has nausea Discussed with nursing and pt and nursing was not aware that nausea has been going on for several days RD following
--- NOTE | 2018-05-24 15:54 | NUR ---
REMOVED EVERY OTHER STITCH FROM PTS R.LEG INCISIONS X2. STERI-STRIPS APPLIED AND LEFT AURA TO TRY. INCISIONS APPEAR TO BE HEALING WELL NO S/S OF INFECTION OR DRAINAGE NOTED. PT C/O BEING VERY NAUSEATED DESPITE GIVEN ZOFRAN AND STATES HE HASNT BEEN ABLE TO EAT VERY MUCH OVER THE LAST FIVE DAYS. DISCUSSED WITH UPON ROUNDING AND WE WILL ADD ANOTHER MEDICATION FOR NAUSEA AND DISCUSS WITH GI ABOUT FURTHER RECCOMENDATIONS. PT VOICED THANKS AND DENIES ANY FURTHER NEEDS AT THIS TIME. WILL CTM.
--- NOTE | 2018-05-24 16:13 | NUR ---
Pt is on a Renal diet with 25% average po intake past 3 days Pt reports poor intake is related to nausea. Pt reports that he has had nausea for about a week and this is causing him not to eat well most meals. Pt reports he is not able to eat or drink when he is nauseated. Pt not drinking much Nepro. Spoke with pt and nursing about nausea RD following
--- NOTE | 2018-05-24 16:28 | NUR ---
OT NOTE: PT REPORTED HAVING STITCHES TAKEN OUT; AGREEABLE TO ATTEMPT TO GET OUT OF BED. STATED THAT HE STILL FEELS NAUSEATED AND HAS BEEN UNABLE TO EAT ANYTHING. BED MOB WITH MOD ASSIST; SIT TO STAND WITH MOD ASSIST X 2; AMB APPROX 6-7 FT WITH RW AND PT UNABLE TO GO ANY FURTHER. PT WAS SHAKING AND WAS PROVIDED WITH CHAIR, HE WAS UNABLE TO AMB BACK TO BED. PT HAD TO BE SLID TO BEDSIDE IN CHAIR AND THEN TRANSFERRED BACK TO BED WITH MAX ASSIST. PT IN TEARS FROM PAIN. NURSING REPORTED THAT SHE HAD JUST PROVIDED PAIN PILL PRIOR TO THERAPY. DIOMEDES DAHL, OTR/L
--- NOTE | 2018-05-24 18:28 | NUR ---
DIRECTOR ON AIR COMPLETE. PT LYING IN BED. DENIES NEEDS AT THIS TIME.
--- NOTE | 2018-05-24 19:30 | NUR ---
PT RESTING IN BED ALERT AND ORIENTED. PT DENIES ANY NEEDS OR PAIN AT THIS TIME. BED LOW CALL LIGHT WITHIN REACH. WILL CONTINUE TO MONITOR.
[2018-05-24 20:00] VITALS: BP 145/86
[2018-05-25] VITALS: BP 159/90
--- NOTE | 2018-05-25 03:00 | NUR ---
PT REQUESTED PAIN MED FOR 9/10 PAIN IN LEG. PT ALERT AND ORIENTED. VITALS STABLE. BED LOW CALL LIGHT WITHIN REACH WILL CONTINUE TO MONITOR.
[2018-05-25 05:45] LABS: BASOPHILS 0.8 % (0-2); EOSINOPHILS 5.3 % (0-7); HEMATOCRIT 28.8 % (42.0-54.0); HEMOGLOBIN 9.2 g/dL (13.5-17.5); IMMATURE GRANULOCYTES 0.4 % (0-5); LYMPHOCYTES 23.7 % (15-50); MCHC 31.9 g/dL (31.0-37.0); MCV 90.9 fL (80.0-100.0); MONOCYTES 9.9 % (2-11); NEUTROPHILS 59.9 % (40-80); PLATELET COUNT 181 10x3/uL (130-400); RBC 3.17 10x6/uL (4.20-6.10); RDW 14.6 % (11.5-14.5); WBC 5.1 10x3/uL (4.8-10.8)
[2018-05-25 06:14] LABS: ANION GAP 14.1 mmol/L (8-16); CALCIUM 7.5 mg/dL (8.5-10.1); CARBON DIOXIDE 28.9 mmol/L (21.0-32.0); CREATININE - SERUM 6.6 mg/dL (0.6-1.3); MAGNESIUM - SERUM 1.8 mg/dL (1.8-2.4)
--- NOTE | 2018-05-25 07:23 | NUR ---
AM ROUNDS COMPLETED. INTRODUCED MYSELF TO PT PRIMARY RN FOR TODAYS SHIFT. PT IS A&O RESTING QUIETLY IN BED AT THIS TIME. SHIFT ASSESSMENT COMPLETED. WILL REVIEW CHART AND PULL MORNING MEDICATIONS AND CPOC. NO CURRENT NEEDS. CL IN REACH.
[2018-05-25 08:15] VITALS: BP 147/90
--- NOTE | 2018-05-25 10:52 | NUR ---
PT C/O GENERALIZED AND R.LEG PAIN REQUESTING AND PROVIDED WITH PRN NORCO ALONG WITH PRN ZOFRAN HE STATES HE IS STILL NAUSEATED AND NOTHING IS HELPING, WILL CONTINUE TO DISCUSS WITH PRIMARY. NO FURTHER NEEDS AT THIS TIME. CL IN REACH, BED IN LOWEST, SIDE RAILS X2. WILL CTM.
[2018-05-25 11:14] VITALS: BP 141/86
--- NOTE | 2018-05-25 14:03 | NUR ---
PT RESTING QUIETLY IN BED WITH EYES CLOSED. RR NONLABORED ON RA. NO S/S OF ANY CURRENT NEEDS AT THIS TIME. CL IN REACH. WILL CTM.
[2018-05-25 15:09] VITALS: BP 141/86
--- NOTE | 2018-05-25 15:57 | NUR ---
PT C/O PAIN AND NAUSEA. REQUESTED AND PROVIDED WITH PRN NORCO ALONG WITH ANTI-NAUSEA MEDICATION. PT VOICED THANKS AND IS RESTING QUIETLY IN BED. PT WANTS TO TRY SOME JELLO, PROVIDED HIM WITH IT AND WILL CTM.
--- NOTE | 2018-05-25 19:38 | NUR ---
RESUME CARE. PT LAYING IN BED A&O BREATH SOUNDS EVEN C/O OF PAIN IN RT LEG AND NAUSEA NORCO AND PHENAGAN GIVEN TOLERATED WELL RT CHEST HEMESPLIT/ RT CHEST SL CVL CLEAN DRG INTACT SUTURE TO INNER THIGH AND OUTER THING ON RT LEG... CASTRO IN PLACE .. NO OTHER COMPLAINS OR DISTRESS AT THIS TIME CALL LIGHT IN REACH WILL CONT TO KETURAH
[2018-05-25 20:00] VITALS: BP 158/91
--- NOTE | 2018-05-25 23:36 | NUR ---
LYING IN BED WITH CALL LIGHT IN REACH. WILL CONTINUE TO MONITOR.
--- NOTE | 2018-05-25 23:50 | NUR ---
GAVE NORCO 10MG FOR PAIN
[2018-05-26 00:14] VITALS: BP 148/86
[2018-05-26 04:00] VITALS: BP 154/92
[2018-05-26 06:14] LABS: BASOPHILS 0.5 % (0-2); HEMATOCRIT 28.7 % (42.0-54.0); HEMOGLOBIN 9.2 g/dL (13.5-17.5); IMMATURE GRANULOCYTES 0.5 % (0-5); LYMPHOCYTES 24.3 % (15-50); MCHC 32.1 g/dL (31.0-37.0); MCV 90.5 fL (80.0-100.0); MEAN PLATELET VOLUME 8.8 fL (7.4-10.4); NEUTROPHILS 53.7 % (40-80); PLATELET COUNT 164 10x3/uL (130-400); RBC 3.17 10x6/uL (4.20-6.10); RDW 14.2 % (11.5-14.5)
[2018-05-26 06:45] LABS: ANION GAP 14.4 mmol/L (8-16); CALCIUM 8.6 mg/dL (8.5-10.1); CARBON DIOXIDE 28.4 mmol/L (21.0-32.0); CREATININE - SERUM 6.3 mg/dL (0.6-1.3); MAGNESIUM - SERUM 1.9 mg/dL (1.8-2.4); POTASSIUM - SERUM 3.8 mmol/L (3.5-5.1)
--- NOTE | 2018-05-26 07:51 | MORECARE ---
CASE MANAGEMENT DISCHARGE SUMMARY PATIENT: KENNY JONES UNIT: [id number] ADM DATE: 05/01/18 AGE: 52 : 67 SEX: M ROOM/BED: D.2100 AUTHOR: MARGE,DOC PHYSICIAN: REFERRING PHYSICIAN: HANNAH HOBSON MD DATE OF SERVICE: 05/26/18 Discharge Plan Patient Name: KENNY JONES Facility: [facility]:[place] : 1965 Planned Disposition: Shelter Facility Anticipated Discharge Date: Discharge Date: Expected LOS: Initial Reviewer: [id number] Initial Review Date: 05/06/2018 Generated: 05/26/18 8:51 am Comments DCP- Discharge Planning Updated by [id number]: Jazmine Conroy on 05/24/18 12:[address] Patient Name: KENNY JONES Admission Status: ER Accout number: [id number] Admission Date: 05-01-2018 : 1965 Admission Diagnosis:TOXIC ENCEPHALOPATHY Attending: HANNAH HOBSON Current LOS: 23 Anticipated DC Date: Planned Disposition: Shelter Facility Primary Insurance: [facility] MEDICARE SOLUTIONS Discharge Planning Comments: CM CALLED AND LEFT MSG WITH [facility] AND FAXED REFERRAL PAPERS. WAITING FOR CALL BACK FOR DETERMINATION. Powderman: Jazmine Conroy DCP- Discharge Planning Updated by [id number]: Markie Burnette on 05/23/18 7:[address] Patient Name: KENNY JONES Encounter No: [id number] : 1965 Primary Insurance: [facility] MEDICARE SOLUTIONS Anticipated DC Date: Planned Disposition: Shelter Facility External Planned Provider:[facility], MEDICARE REHAB BED DCP follow-up note: CM FAXED UPDATE TO [facility], , FOR REHAB REQUEST. CM WAITING ADMISSION DETERMINATION FROM [facility], INSURANCE AUTHORIZATION FOR REHAB SERVICES FROM 'S INSURANCE. OUTPATIENT DIALYSIS CLINIC ARRANGEMENT COMPLETED FOR [facility], MWF, 0745AM, START DATE 05-23-18 IF REHAB PLACEMENT IS SECURED. Markie Burnette, CASE MANAGEMENT DCP- Discharge Planning Updated by [id number]: Markie Burnette on 05/20/18 1:[address] Patient Name: KENNY JONES Encounter No: [id number] : 1965 Primary Insurance: [facility] MEDICARE SOLUTIONS Anticipated DC Date: Planned Disposition: Shelter Facility External Planned Provider: [facility], MEDICARE REHAB BED DCP follow-up note: CM SPOKE TO RAUL OF [facility], THEY ARE STILL WAITING ON INSURANCE AUTHORIZATION FROM PT'S INSURANCE COMPANY. CM RECEIVED MESSAGE FROM KENYATTA URENA [facility], PT HAS BEEN ACCEPTED FOR OUTPATIENT DIALYSIS, MWF, 0745AM AT [facility]. PT CAN START ON 05-23-18. CM NOTIFIED RAUL OF [facility]. CM WAITING ADMISSION DETERMINATION FROM [facility], INSURANCE AUTHORIZATION FOR REHAB SERVICES FROM PT'S INSURANCE. OUTPATIENT DIALYSIS CLINIC ARRANGEMENT COMPLETED FOR [facility], MWF, 0745AM, START DATE 05-23-18 IF REHAB PLACEMENT IS SECURED. Markie Burnette CASE MANAGEMENT DCP- Discharge Planning Updated by [id number]: Markie Burnette on 05/19/18 3:[address] Patient Name: KENNY JONES Encounter No: [id number] : 1965 Primary Insurance: [facility] MEDICARE SOLUTIONS Anticipated DC Date: Planned Disposition: Shelter Facility External Planned Provider: [facility], MEDICARE REHAB BED DCP follow-up note: [facility] APPROVED FOR RETIREMENT FACILITY ENTRY FOR 60 DAYS OF REHAB. CM FAXED UPDATE TO [facility] AT [phone]. CM SPOKE TO KENYATTA URENA [facility] WHO WILL CHECK ON OUTPATIENT DIALYSIS CLINIC ACCEPTANCE. CM WAITING ADMISSION DETERMINATION FROM [facility], INSURANCE AUTHORIZATION FOR REHAB SERVICES FROM PT'S INSURANCE AND OUTPATIENT DIALYSIS CLINIC ARRANGEMENT BY [facility] COORDINATOR. Markie Burnette CASE MANAGEMENT DCP- Discharge Planning Updated by [id number]: Markie Burnette on 05/16/18 3:[address] Patient Name: KENNY JONES Encounter No: [id number] : 1965 Primary Insurance: [facility] MEDICARE SOLUTIONS Anticipated DC Date: Planned Disposition: Shelter Facility External Planned Provider: [facility], MEDICARE REHAB BED DCP follow-up note: CM RECEIVED [facility] APPROVAL FOR RETIREMENT FACILITY ENTRY FOR 60 DAYS. CM FAXED UPDATE AND [facility] APPROV[facility] TO [facility] AT [phone]. CM WAITING ADMISSION DETERMINATION FROM [facility], INSURANCE AUTHORIZATION FOR REHAB SERVICES FROM PT'S INSURANCE AND OUTPATIENT DIALYSIS CLINIC ARRANGEMENT BY [facility] PATIENT [facility] COORDINATOR. DIOR Ocampo MANAGEMENT DCP- Discharge Planning Updated by [id number]: Markie Burnette on 05/13/18 6:[address] Patient Name: KENNY JONES Encounter No: [id number] : 1965 Primary Insurance: [facility] MEDICARE SOLUTIONS Anticipated DC Date: Planned Disposition: Shelter Facility External Planned Provider: [facility], MEDICARE REHAB BED DCP follow-up note: CM MET WITH PT IN ROOM TO COMPLETE [facility] SCREENING ASSESSMENT. SCREENING FORMS COMPELTED AND SIGNED. CM FAXED TO [facility] AT [phone]. CM WAITING [facility] SCREENING COMPLETION. CM WAITING ADMISSION DETERMINATION FROM [facility], INSURANCE AUTHORIZATION FOR REHAB SERVICES FROM PT'S INSURANCE AND OUTPATIENT DIALYSIS CLINIC ARRANGEMENT BY [facility] COORDINATOR. DIOR Ocampo DCP- Discharge Planning Updated by [id number]: Markie Burnette on 05/12/18 4:[address] Patient Name: KENNY JONES Encounter No: [id number] : 1965 Primary Insurance: [facility] MEDICARE SOLUTIONS Anticipated DC Date: Planned Disposition: Shelter Facility External Planned Provider: [facility], MEDICARE REHAB BED DCP follow-up note: CM MET WITH PT IN ROOM TO DISCUSS DISCHARGE PLANNING AND NEEDS. PT REPORTS HE CANNOT GO HOME ALONE LIKE THIS AND NEEDS REHAB FIRST. CM DISCUSSED REHAB OPTIONS AND LOCATIONS. PT DOES NOT WANT WORK OVER RIG OPERATOR CARE AND ASKED FOR [facility] FOR REH[facility] SERVICES. CHOICE LETTER SIGNED FOR [facility]. CM ADVISED PT THAT KENYATTA CHRISTOPHER OF [facility] WOULD BE IN CONTACT WITH PT REGARDING OUTPATIENT DIALYSIS CLINIC ARRANGEMENTS. [place]ING [place] AND HOPES TO BE INDEPENDENT AND RIDING HIS SCOOTER FOR TRANSPORT AFTER REHAB IS COMPLETED. PT REPORTS HIS BROTHER IS ASSISTING WITH CARING FOR PT'S DOG AT HOME AND PAYING PT'S BILLS WITH PT'S CHECK WHILE PT IS IN THE HOSPITAL. PT IS NOT ELIGIBLE FOR FREE TRANSPORT WITH MEDICAID TRANSPORTATION HE IS "QMB" ONLY. CM FAXED REFERRAL TO [facility] AT [phone]. CM WAITING ADMISSION DETERMINATION FROM [facility], INSURANCE AUTHORIZATION FOR REHAB SERVICES FROM PT'S INSURANCE AND OUTPATIENT DIALYSIS CLINIC ARRANGEMENT BY [facility] PATIENT [facility] COORDINATOR. Markie Burnette CASE MANAGEMENT DCP- Discharge Planning Updated by [id number]: Markie Burnette on 05/12/18 11:[address] Patient Name: KENNY JONES Encounter No: [id number] : 1965 Primary Insurance: [facility] MEDICARE SOLUTIONS Anticipated DC Date: Planned Disposition: Home DCP follow-up note: CM RECEIVED ORDER FOR OUTPATIENT DIALYSIS AND POSSIBLE REHAB PLACEMENT NEEDS. RN CM HOUSE NOTIFED KENYATTA OF [facility] FOR NEW DAILYSIS CLINIC ARRANGEMENT. CM ATTEMPTED TO MEET WITH PT FOR INITIAL ASSESSMENT OF DISCHARGE NEEDS. PT WAS NOT IN ROOM AT APPROXIMATELY [address] HOURS. CM TO ATTEMPT ASSESSMENT OF PT AT A LATER TIME. DIOR Ocampo MANAGEMENT DCP- Discharge Planning Updated by [id number]: Sonia Wyatt on 05/06/18 8:[address] Patient Name: KENNY JONES Admission Status: ER Accout number: [id number] Admission Date: 05-01-2018 : 1965 Admission Diagnosis:TOXIC ENCEPHALOPATHY Attending: HANNAH HOBSON Current LOS: 5 Anticipated DC Date: Planned Disposition: Home Primary Insurance: [facility] MEDICARE SOLUTIONS Discharge Planning Comments: CM met with patient at bedside after obtaining permission. Patient states he was living at home alone. Patient plans to return to his apartment upon discharge. Patient may need rehab before discharge. Patient denies any needs at this time. CM will continue to follow and assist with discharge planning / needs. Powderman: Sonia Wyatt DCPIA - Discharge Planning Initial Assessment Updated by [id number]: Sonia Wyatt on 05/06/18 8:59 pm * Is the patient Alert and Oriented? Yes * How many steps to enter\\exit or inside your home? * PCP Deirdre Rose * Pharmacy [facility] * Preadmission Environment Home Alone * ADLs Independent * Equipment None * List name and contact numbers for known caregivers / representatives who currently or will assist patient after discharge: Bryon Jones - Brother - [phone] * Verbal permission to speak to the caregivers and representatives has been obtained from the patient. N/A * Community resources currently utilized None * Additional services required to return to the preadmission environment? No * Can the patient safely return to the preadmission environment? Yes * Has this patient been hospitalized within the prior 30 days at any hospital? Yes Coverage Notice Reviewer: [id number] Lynne Aden [place] Notice Issued Date-Time: 05/12/2018 13:25 Notice Type: Patient Choice Letter Notice Delivered To: Patient Relationship to Patient: Home Security Professional Name: Delivery Method: HAND - Hand Delivered Sagrario Days: Prior Verbal Notification: Recipient Understood Notice: Yes Recipient Signature: Yes Med Rec Note Co-signed by Attending: Coverage Notice Comment: [facility] Last DP export: 05/24/18 1:10 p Patient Name: KENNY JONES Page [id number] at 0751 All edits/amendments must be made on the electronic document DICTATION DATE: 05/26/18749 BULLET CHARGING MACHINE OPERATOR: SPENCER 05/26/18749 RPT#: [id number] DC DATE: STATUS: ADM IN [facility] [address] [place] [address] END OF REPORT
--- NOTE | 2018-05-26 08:00 | NUR ---
AM ROUNDS COMPLETED, VSS, AAO X3, RESP UNLABORED. PT C/O NAUSEA. PO PHENEGRAN GIVEN ALONGSIDE AM MEDS. ASSESSED PT INCISION DRESSING. SUTURE INTACT, CLEAN AND DRY. PT ALSO REFUSED REMOVAL OF HIS CASTRO. WILL CONTINUE POC. CL IN REACH, BED IN LOW. WILL CTM.
[2018-05-26 08:03] VITALS: BP 137/93
--- NOTE | 2018-05-26 08:03 | MORECARE ---
CASE MANAGEMENT DISCHARGE SUMMARY PATIENT: KENNY JONES UNIT: [id number] ADM DATE: 05/01/18 AGE: 52 : 67 SEX: M ROOM/BED: D.2104 AUTHOR: MARGE,DOC PHYSICIAN: REFERRING PHYSICIAN: HANNAH HOBSON MD DATE OF SERVICE: 05/26/18 Discharge Plan Patient Name: KENNY JONES Facility[facility] : 1965 Planned Disposition: Snf Facility Anticipated Discharge Date: Discharge Date: Expected LOS: Initial Reviewer: [id number] Initial Review Date: 05/06/2018 Generated: 05/26/18 9:03 am Comments DCP- Discharge Planning Updated by [id number]: Jazmine Conroy on 05/24/18 12:[address] Patient Name: KENNY JONES Admission Status: ER Accout number: [id number] Admission Date: 05-01-2018 : 1965 Admission Diagnosis:TOXIC ENCEPHALOPATHY Attending: HANNAH HOBSON Current LOS: 23 Anticipated DC Date: Planned Disposition: Snf Facility Primary Insurance: [facility] MEDICARE SOLUTIONS Discharge Planning Comments: CM CALLED AND LEFT MSG WITH [facility] AND FAXED REFERRAL PAPERS. WAITING FOR CALL BACK FOR DETERMINATION. Software Specialist: Jazmine Conroy DCP- Discharge Planning Updated by [id number]: Markie Burnette on 05/23/18 7:[address] Patient Name: KENNY JONES Encounter No: [id number] : 1965 Primary Insurance: [facility] MEDICARE SOLUTIONS Anticipated DC Date: Planned Disposition: Snf Facility External Planned Provider:[facility], MEDICARE REHAB BED DCP follow-up note: CM FAXED UPDATE TO [facility], , FOR REHAB REQUEST. CM WAITING ADMISSION DETERMINATION FROM [facility], INSURANCE AUTHORIZATION FOR REHAB SERVICES FROM 'S INSURANCE. OUTPATIENT DIALYSIS CLINIC ARRANGEMENT COMPLETED FOR [facility], MWF, 0745AM, START DATE 05-23-18 IF REHAB PLACEMENT IS SECURED. Markie Burnette, CASE MANAGEMENT DCP- Discharge Planning Updated by [id number]: Markie Burnette on 05/20/18 1:[address] Patient Name: KENNY JONES Encounter No: [id number] : 1965 Primary Insurance: [facility] MEDICARE SOLUTIONS Anticipated DC Date: Planned Disposition: Snf Facility External Planned Provider: [facility], MEDICARE REHAB BED DCP follow-up note: CM SPOKE TO [facility]UL OF [facility], THEY ARE STILL WAITING ON INSURANCE AUTHORIZATION FROM PT'S INSURANCE COMPANY. CM RECEIVED MESSAGE FROM KENYATTA URENA [facility], PT HAS BEEN ACCEPTED FOR OUTPATIENT DIALYSIS, MWF, 0745AM AT [facility]. PT CAN START ON 05-23-18. CM NOTIFIED [facility] OF [facility]. CM WAITING ADMISSION DETERMINATION FROM [facility], INSURANCE AUTHORIZATION FOR REHAB SERVICES FROM PT'S INSURANCE. OUTPATIENT DIALYSIS CLINIC ARRANGEMENT COMPLETED FOR [facility], MWF, 0745AM, START DATE 05-23-18 IF REHAB PLACEMENT IS SECURED. Markie Burnette CASE MANAGEMENT DCP- Discharge Planning Updated by [id number]: Markie Burnette on 05/19/18 3:[address] Patient Name: KENNY JONES Encounter No: [id number] : 1965 Primary Insurance: [facility] MEDICARE SOLUTIONS Anticipated DC Date: Planned Disposition: Snf Facility External Planned Provider: [facility], MEDICARE REHAB BED DCP follow-up note: [facility] APPROVED FOR HALF-WAY FACILITY ENTRY FOR 60 DAYS OF REHAB. CM FAXED UPDATE TO [facility] AT [phone]. CM SPOKE TO KENYATTA URENA [facility] WHO WILL CHECK ON OUTPATIENT DIALYSIS CLINIC ACCEPTANCE. CM WAITING ADMISSION DETERMINATION FROM [facility], INSURANCE AUTHORIZATION FOR REHAB SERVICES FROM PT'S INSURANCE AND OUTPATIENT DIALYSIS CLINIC ARRANGEMENT BY [facility] COORDINATOR. Markie Burnette CASE MANAGEMENT DCP- Discharge Planning Updated by [id number]: Markie Burnette on 05/16/18 3:[address] Patient Name: KENNY JONES Encounter No: [id number] : 1965 Primary Insurance: [facility] MEDICARE SOLUTIONS Anticipated DC Date: Planned Disposition: Snf Facility External Planned Provider: [facility], MEDICARE REHAB BED DCP follow-up note: CM RECEIVED [facility] APPROVAL FOR HALF-WAY FACILITY ENTRY FOR 60 DAYS. CM FAXED UPDATE AND [facility] TO [facility] AT [phone]. CM WAITING ADMISSION DETERMINATION FROM [facility], INSURANCE AUTHORIZATION FOR REHAB SERVICES FROM PT'S INSURANCE AND OUTPATIENT DIALYSIS CLINIC ARRANGEMENT BY [facility] PATIENT PATHWAYS COORDINATOR. DIOR Ocampo MANAGEMENT DCP- Discharge Planning Updated by [id number]: Markie Burnette on 05/13/18 6:[address] Patient Name: KENNY JONES Encounter No: [id number] : 1965 Primary Insurance: [facility] MEDICARE SOLUTIONS Anticipated DC Date: Planned Disposition: Snf Facility External Planned Provider: [facility], MEDICARE REHAB BED DCP follow-up note: CM MET WITH PT IN ROOM TO COMPLETE [facility] SCREENING ASSESSMENT. SCREENING FORMS COMPELTED AND SIGNED. CM FAXED TO [facility] AT [phone]. CM WAITING [facility] SCREENING COMPLETION. CM WAITING ADMISSION DETERMINATION FROM [facility], INSURANCE AUTHORIZATION FOR REHAB SERVICES FROM PT'S INSURANCE AND OUTPATIENT DIALYSIS CLINIC ARRANGEMENT BY [facility] COORDINATOR. DIOR Ocampo DCP- Discharge Planning Updated by [id number]: Markie Burnette on 05/12/18 4:[address] Patient Name: KENNY JONES Encounter No: [id number] : 1965 Primary Insurance: [facility] MEDIC[employer] SOLUTIONS Anticipated DC Date: Planned Disposition: Snf Facility External Planned Provider: [facility], MEDICARE REHAB BED DCP follow-up note: CM MET WITH PT IN ROOM TO DISCUSS DISCHARGE PLANNING AND NEEDS. PT REPORTS HE CANNOT GO HOME ALONE LIKE THIS AND NEEDS REHAB FIRST. CM DISCUSSED REHAB OPTIONS AND LOCATIONS. 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 CHOICE LETTER SIGNED FOR [facility]. CM ADVISED PT THAT KENYATTA CHRISTOPHER OF [facility] WOULD BE IN CONTACT WITH PT REGARDING OUTPATIENT DIALYSIS CLINIC ARRANGEMENTS. PT RE[place] LIVING IN [place] AND HOPES TO BE INDEPENDENT AND RIDING HIS SCOOTER FOR TRANSPORT AFTER REHAB IS COMPLETED. PT REPORTS HIS BROTHER IS ASSISTING WITH CARING FOR PT'S DOG AT HOME AND PAYING PT'S BILLS WITH PT'S CHECK WHILE PT IS IN THE HOSPITAL. PT IS NOT ELIGIBLE FOR FREE TRANSPORT WITH MEDICAID TRANSPORTATION HE IS "QMB" ONLY. CM FAXED REFERRAL TO [facility] AT [phone]. CM WAITING ADMISSION DETERMINATION FROM [facility], INSURANCE AUTHORIZATION FOR REHAB SERVICES FROM PT'S INSURANCE AND OUTPATIENT DIALYSIS CLINIC ARRANGEMENT BY [facility] PATIENT PATHWAYS COORDINATOR. Markie Burnette CASE MANAGEMENT DCP- Discharge Planning Updated by [id number]: Markie Burnette on 05/12/18 11:[address] Patient Name: KENNY JONES Encounter No: [id number] : 1965 Primary Insurance: [facility] MEDIC[facility] SOLUTIONS Anticipated DC Date: Planned Disposition: Home DCP follow-up note: CM RECEIVED ORDER FOR OUTPATIENT DIALYSIS AND POSSIBLE REHAB PLACEMENT NEEDS. RN CM HOUSE NOTIFED KENYATTA OF [facility] FOR NEW DAILYSIS CLINIC ARRANGEMENT. CM ATTEMPTED TO MEET WITH PT FOR INITIAL ASSESSMENT OF DISCHARGE NEEDS. PT WAS NOT IN ROOM AT APPROXIMATELY [address] HOURS. CM TO ATTEMPT ASSESSMENT OF PT AT A LATER TIME. DIOR Ocampo MANAGEMENT DCP- Discharge Planning Updated by [id number]: Sonia Wyatt on 05/06/18 8:[address] Patient Name: KENNY JONES Admission Status: ER Accout number: [id number] Admission Date: 05-01-2018 : 1965 Admission Diagnosis:TOXIC ENCEPHALOPATHY Attending: HANNAH HOBSON Current LOS: 5 Anticipated DC Date: Planned Disposition: Home Primary Insurance: [facility] MEDICARE SOLUTIONS Discharge Planning Comments: CM met with patient at bedside after obtaining permission. Patient states he was living at home alone. Patient plans to return to his apartment upon discharge. Patient may need rehab before discharge. Patient denies any needs at this time. CM will continue to follow and assist with discharge planning / needs. Software Specialist: Sonia Wyatt DCPIA - Discharge Planning Initial Assessment Updated by [id number]: Sonia Wyatt on 05/06/18 8:59 pm * Is the patient Alert and Oriented? Yes * How many steps to enter\\exit or inside your home? * PCP Deirdre Rose * Pharmacy [facility] * Preadmission Environment Home Alone * ADLs Independent * Equipment None * List name and contact numbers for known caregivers / representatives who currently or will assist patient after discharge: Bryon Jones - Brother - [phone] * Verbal permission to speak to the caregivers and representatives has been obtained from the patient. N/A * Community resources currently utilized None * Additional services required to return to the preadmission environment? No * Can the patient safely return to the preadmission environment? Yes * Has this patient been hospitalized within the prior 30 days at any hospital? Yes External Providers External Provider: [facility] and [facility] Next Contact Date: 05/26/2018 Service Request Date: Service Type: Resolution: Reviewer: Comments: Coverage Notice Reviewer: [id number] Lynne Burnette Notice Issued Date-Time: 05/12/2018 13:25 Notice Type: Patient Choice Letter Notice Delivered To: Patient Relationship to Patient: Records Associate Name: Delivery Method: HAND - Hand Delivered Sagrario Days: Prior Verbal Notification: Recipient Understood Notice: Yes Recipient Signature: Yes Med Rec Note Co-signed by Attending: Coverage Notice Comment: [facility] Last DP export: 05/26/18 6:51 a Patient Name: KENNY JONES Page 00937 at 0803 All edits/amendments must be made on the electronic document DICTATION DATE: 05/26/18 0803 COMPLEX CARE NURSE PRACTITIONER: SPENCER 05/26/18 0803 RPT#: [id number] DC DATE: STATUS: ADM IN [facility] [address] [place] [address] END OF REPORT
--- NOTE | 2018-05-26 08:10 | MORECARE ---
CASE MANAGEMENT DISCHARGE SUMMARY PATIENT: KENNY JONES UNIT: [id number] ADM DATE: 05/01/18 AGE: 52 : 67 SEX: M ROOM/BED: D.2104 AUTHOR: MARGE,DOC PHYSICIAN: REFERRING PHYSICIAN: HANNAH HOBSON MD DATE OF SERVICE: 05/26/18 Discharge Plan Patient Name: KENNY JONES Facility: [facility]:[place] : 1965 Planned Disposition: Fpc Facility Anticipated Discharge Date: Discharge Date: Expected LOS: Initial Reviewer: [id number] Initial Review Date: 05/06/2018 Generated: 05/26/18 9:10 am Comments DCP- Discharge Planning Updated by [id number]: Markie Burnette on 05/26/18 7:[address] Patient Name: KENNY JONES Encounter No: [id number] : 1965 Primary Insurance: [facility] MEDICARE SOLUTIONS Anticipated DC Date: Planned Disposition: Fpc Facility External Planned Provider: [facility] ACCEPTING FACILITY DCP follow-up note: CM REVIEWED CHART, FAXED UPDATE TO [facility] FOR REHAB PLACEMENT REQUEST, . [facility], . [facility] AT [phone]. CM FAXED REFERRAL TO [facility] AT [phone]. PT HAS BEEN DECLINED AT THE [facility] AND [facility]. [facility] HAS APPROVED PT FOR REHAB ENTRY FOR UP TO 60 DAYS. CM WAITING ADMISSION DETERMINATIONS FROM [facility], [facility] AND [facility]. Markie Burnette, CASE MANAGEMENT DCP- Discharge Planning Updated by [id number]: Jazmine Conroy on 05/24/18 12:[address] Patient Name: KENNY JONES Admission Status: ER Accout number: [id number] Admission Date: 05-01-2018 : 1965 Admission Diagnosis:TOXIC ENCEPHALOPATHY Attending: HANNAH HOBSON Current LOS: 23 Anticipated DC Date: Planned Disposition: Fpc Facility Primary Insurance: [facility] MEDICARE SOLUTIONS Discharge Planning Comments: CM CALLED AND LEFT MSG WITH [facility] AND FAXED REFERRAL PAPERS. WAITING FOR CALL BACK FOR DETERMINATION. Radiation Oncology Manager: Jazmine Conroy DCP- Discharge Planning Updated by [id number]: Markie Burnette on 05/23/18 7:[address] Patient Name: KENNY JONES Encounter No: [id number] : 1965 Primary Insurance: [facility] MEDICARE SOLUTIONS Anticipated DC Date: Planned Disposition: Fpc Facility External Planned Provider:[facility], MEDICARE REHAB BED DCP follow-up note: CM FAXED UPDATE TO THE [facility], , FOR REHAB REQUEST. CM WAITING ADMISSION DETERMINATION FROM THE [facility] FOR REHAB, INSURANCE AUTHORIZATION FOR REHAB SERVICES FROM PT'S INSURANCE. OUTPATIENT DIALYSIS CLINIC ARRANGEMENT COMPLETED FOR [facility], MWF, 0745AM, START DATE 05-23-18 IF REHAB PLACEMENT IS SECURED. DIOR Ocampo DCP- Discharge Planning Updated by [id number]: Markie Burnette on 05/20/18 1:[address] Patient Name: KENNY JONES Encounter No: [id number] : 1965 Primary Insurance: [facility] MEDICARE SOLUTIONS Anticipated DC Date: Planned Disposition: Fpc Facility External Planned Provider: [facility]SING AND [facility], MEDICARE REHAB BED DCP follow-up note: CM SPOKE TO [facility] OF [facility], THEY ARE STILL WAITING ON INSURANCE AUTHORIZATION FROM PT'S INSURANCE COMPANY. CM RECEIVED MESSAGE FROM KENYATTA OF [facility], PT HAS BEEN ACCEPTED FOR OUTPATIENT DIALYSIS, MWF, 0745AM AT [facility]. PT CAN START ON 05-23-18. CM NOTIFIED [facility] OF [facility]. CM WAITING ADMISSION DETERMINATION FROM THE [facility] FOR REHAB, INSURANCE AUTHORIZATION FOR REHAB SERVICES FROM PT'S INSURANCE. OUTPATIENT DIALYSIS CLINIC ARRANGEMENT COMPLETED FOR [facility], MWF, 0745AM, START DATE 05-23-18 IF REHAB PLACEMENT IS SECURED. Markie Burnette CASE MANAGEMENT DCP- Discharge Planning Updated by [id number]: Markie Burnette on 05/19/18 3:[address] Patient Name: KENNY JONES Encounter No: [id number] : 1965 Primary Insurance: [facility] MEDICARE SOLUTIONS Anticipated DC Date: Planned Disposition: Fpc Facility External Planned Provider: [facility], MEDICARE REHAB BED DCP follow-up note: [facility] APPROVED FOR [facility] FACILITY ENTRY FOR 60 DAYS OF REHAB. CM FAXED UPDATE TO THE [facility]IA [employer] AT [phone]. CM SPOKE TO KENYATTA OF [facility] WHO WILL CHECK ON OUTPATIENT DIALYSIS CLINIC ACCEPTANCE. CM WAITING ADMISSION DETERMINATION FROM THE [facility] FOR REHAB, INSURANCE AUTHORIZATION FOR REHAB SERVICES FROM PT'S INSURANCE AND OUTPATIENT DIALYSIS CLINIC [facility]ANGEMENT [facility] COORDINATOR. Markie Burnette CASE MANAGEMENT DCP- Discharge Planning Updated by [id number]: Markie Burnette on 05/16/18 3:[address] Patient Name: KENNY JONES Encounter No: [id number] : 1965 Primary Insurance: [facility] MEDICARE SOLUTIONS Anticipated DC Date: Planned Disposition: Fpc Facility External Planned Provider: [facility], MEDICARE REHAB BED DCP follow-up note: CM RECEIVED [facility] APPROVAL FOR [facility] FACILITY ENTRY FOR 60 DAYS. CM FAXED UPDATE AND [facility] APPROV[facility] TO THE [facility]IA [employer] AT [phone]. CM WAITING ADMISSION DETERMINATION FROM THE [facility] FOR REHAB, INSURANCE AUTHORIZATION FOR REHAB SERVICES FROM PT'S INSURANCE AND OUTPATIENT DIALYSIS CLINIC ARRANGEMENT BY [facility] COORDINATOR. Markie Burnette CASE PATRICIA DCP- Discharge Planning Updated by [id number]: Markie Burnette on 05/13/18 6:[address] Patient Name: KENNY CATALANB Encounter No: [id number] : 1965 Primary Insurance: [facility] MEDICARE SOLUTIONS Anticipated DC Date: Planned Disposition: Fpc Facility External Planned Provider: [facility], MEDICARE REHAB BED DCP follow-up note: CM MET WITH PT IN ROOM TO COMPLETE [facility] SCREENING ASSESSMENT. SCREENING FORMS COMPELTED AND SIGNED. CM FAXED TO [employer] AT [phone]. CM WAITING [facility] SCREENING COMPLETION. CM WAITING ADMISSION DETERMINATION FROM THE [facility] FOR REHAB, INSURANCE AUTHORIZATION FOR REHAB SERVICES FROM PT'S INSURANCE AND OUTPATIENT DIALYSIS CLINIC [facility]RANGEMENT [facility] PAT[facility]WAYS COORDINATOR. Markie Burnette CASE MANAGEMENT DCP- Discharge Planning Updated by [id number]: Markie Burnette on 05/12/18 4:[address] Patient Name: KENNY JONES Encounter No: [id number] : 1965 Primary Insurance: [facility] MEDICARE SOLUTIONS Anticipated DC Date: Planned Disposition: Fpc Facility External Planned Provider: [facility], MEDICARE REHAB BED DCP follow-up note: CM MET WITH PT IN ROOM TO DISCUSS DISCHARGE PLANNING AND NEEDS. PT REPORTS HE CANNOT GO HOME ALONE LIKE THIS AND NEEDS REHAB FIRST. CM DISCUSSED REHAB OPTIONS AND LOCATIONS. PT DOES NOT WANT OFFICE COMMUNICATION PROFESSOR CARE AND ASKED FOR THE [facility] FOR REHAB SERVICES. CHOICE LETTER SIGNED FOR THE [facility]. CM ADVISED PT THAT KENYATTA CHRISTOPHER OF [facility] WOULD BE IN CONTACT WITH PT REGARDING OUTPATIENT DIALYSIS CLINIC ARRANGEMENTS. PT RE[place]TS LIVING IN [place] AND HOPES TO BE INDEPENDENT AND RIDING HIS SCOOTER FOR TRANSPORT AFTER REHAB IS COMPLETED. PT REPORTS HIS BROTHER IS ASSISTING WITH CARING FOR PT'S DOG AT HOME AND PAYING PT'S BILLS WITH PT'S CHECK WHILE PT IS IN THE HOSPITAL. PT IS NOT ELIGIBLE FOR FREE TRANSPORT WITH MEDICAID TRANSPORTATION HE IS "QMB" ONLY. CM FAXED REFERRAL TO THE [facility]IA [employer] AT [phone]. CM WAITING ADMISSION DETERMINATION FROM THE [facility] FOR REHAB, INSURANCE AUTHORIZATION FOR REHAB SERVICES FROM PT'S INSURANCE AND OUTPATIENT DIALYSIS CLINIC ARRANGEMENT BY [facility] COORDINATOR. Markie Burnette CASE MANAGEMENT DCP- Discharge Planning Updated by [id number]: Markie Burnette on 05/12/18 11:[address] Patient Name: KENNY JONES Encounter No: [id number] : 1965 Primary Insurance: [facility] MEDIC[facility] SOLUTIONS Anticipated DC Date: Planned Disposition: Home DCP follow-up note: CM RECEIVED ORDER FOR OUTPATIENT DIALYSIS AND POSSIBLE REHAB PLACEMENT NEEDS. [facility] NOTIFED KENYATTA OF [facility] FOR NEW DAILYSIS CLINIC ARRANGEMENT. CM ATTEMPTED TO MEET WITH PT FOR INITIAL ASSESSMENT OF DISCHARGE NEEDS. PT WAS NOT IN ROOM AT APPROXIMATELY 70844 HOURS. CM TO ATTEMPT ASSESSMENT OF PT AT A LATER TIME. Markie Burnette, CASE MANAGEMENT DCP- Discharge Planning Updated by [id number]: Sonia Wyatt on 05/06/18 8:[address] Patient Name: KENNY JONES Admission Status: ER Accout number: [id number] Admission Date: 05-01-2018 : 1965 Admission Diagnosis:TOXIC ENCEPHALOPATHY Attending: HANNAH HOBSON Current LOS: 5 Anticipated DC Date: Planned Disposition: Home Primary Insurance: [facility] MEDICARE SOLUTIONS Discharge Planning Comments: CM met with patient at bedside after obtaining permission. Patient states he was living at home alone. Patient plans to return to his apartment upon discharge. Patient may need rehab before discharge. Patient denies any needs at this time. CM will continue to follow and assist with discharge planning / needs. Radiation Oncology Manager: Sonia Wyatt DCPIA - Discharge Planning Initial Assessment Updated by [id number]: Sonia Wyatt on 05/06/18 8:59 pm * Is the patient Alert and Oriented? Yes * How many steps to enter\\exit or inside your home? * PCP Deirdre Rose * Pharmacy [facility] * Preadmission Environment Home Alone * ADLs Independent * Equipment None * List name and contact numbers for known caregivers / representatives who currently or will assist patient after discharge: Bryon Jones - [phone] * Verbal permission to speak to the caregivers and representatives has been obtained from the patient. N/A * Community resources currently utilized None * Additional services required to return to the preadmission environment? No * Can the patient safely return to the preadmission environment? Yes * Has this patient been hospitalized within the prior 30 days at any hospital? Yes External Providers External Provider: [facility] [address] Next Contact Date: 05/26/2018 Service Request Date: Service Type: Resolution: Reviewer: Comments: Coverage Notice Reviewer: [id number] - Markie Burnette Notice Issued Date-Time: 05/12/2018 13:25 Notice Type: Patient Choice Letter Notice Delivered To: Patient Relationship to Patient: Vocal Music Teacher Name: Delivery Method: HAND - Hand Delivered Sagrario Days: Prior Verbal Notification: Recipient Understood Notice: Yes Recipient Signature: Yes Med Rec Note Co-signed by Attending: Coverage Notice Comment: [facility] Last DP export: 05/26/18 7:03 a Patient Name: KENNY JONES Page 10946 at 0810 All edits/amendments must be made on the electronic document DICTATION DATE: 05/26/18808 TOPOGRAPHIC COMPUTATOR: SPENCER 05/26/18808 RPT#: [id number] DC DATE: STATUS: ADM IN [facility] [address] [place] [address] END OF REPORT
--- NOTE | 2018-05-26 08:16 | MORECARE ---
CASE MANAGEMENT DISCHARGE SUMMARY PATIENT: KENNY JONES UNIT: [id number] ADM DATE: 05/01/18 AGE: 52 : 67 SEX: M ROOM/BED: D.2100 AUTHOR: MARGE,DOC PHYSICIAN: REFERRING PHYSICIAN: HANNAH HOBSON MD DATE OF SERVICE: 05/26/18 Discharge Plan Patient Name: KENNY JONES Facility: [facility]:[place] : 1965 Planned Disposition: Shelter Facility Anticipated Discharge Date: Discharge Date: Expected LOS: Initial Reviewer: [id number] Initial Review Date: 05/06/2018 Generated: 05/26/18 9:16 am Comments DCP- Discharge Planning Updated by [id number]: Markie Burnette on 05/26/18 7:[address] Patient Name: KENNY JONES Encounter No: [id number] : 1965 Primary Insurance: [facility] MEDICARE SOLUTIONS Anticipated DC Date: Planned Disposition: Shelter Facility External Planned Provider: [facility] ACCEPTING FACILITY DCP follow-up note: CM REVIEWED CHART, FAXED UPDATE TO [facility] FOR REHAB PLACEMENT REQUEST, . [facility], . [facility] AT [phone][facility] CM FAXED REFERRAL TO [facility] AT [phone]. PT HAS BEEN DECLINED AT THE [facility] AND [facility]. [facility] HAS APPROVED PT FOR REHAB ENTRY FOR UP TO 60 DAYS. CM WAITING ADMISSION DETERMINATIONS FROM [facility], [facility] AND [facility]. Markie Burnette, CASE MANAGEMENT DCP- Discharge Planning Updated by [id number]: Jazmine Conroy on 05/24/18 12:[address] Patient Name: KENNY JONES Admission Status: ER Accout number: [id number] Admission Date: 05-01-2018 : 1965 Admission Diagnosis:TOXIC ENCEPHALOPATHY Attending: HANNAH HOBSON Current LOS: 23 Anticipated DC Date: Planned Disposition: Shelter Facility Primary Insurance: [facility] MEDIC[facility] SOLUTIONS Discharge Planning Comments: CM CALLED AND LEFT MSG WITH [facility] AND FAXED REFERRAL PAPERS. WAITING FOR CALL BACK FOR DETERMINATION. Bowling Ball Molder: Jazmine Conroy DCP- Discharge Planning Updated by [id number]: Markie Burnette on 05/23/18 7:[address] Patient Name: KENNY JONES Encounter No: [id number] : 1965 Primary Insurance: [facility] MEDIC[facility] SOLUTIONS Anticipated DC Date: Planned Disposition: Shelter Facility External Planned Provider:[facility]UR[facility] REH[facility], MEDICARE REHAB BED DCP follow-up note: CM FAXED UPDATE TO THE [facility]IA [facility], , FOR REHAB REQUEST. CM WAITING ADMISSION DETERMINATION FROM THE [facility] FOR REHAB, INSURANCE AUTHORIZATION FOR REHAB SERVICES FROM PT'S INSURANCE. OUTPATIENT DIALYSIS CLINIC ARRANGEMENT COMPLETED FOR [facility], MWF, 0745AM, START DATE 05-23-18 IF REHAB PLACEMENT IS SECURED. DIOR Ocampo DCP- Discharge Planning Updated by [id number]: Markie Burnette on 05/20/18 1:[address] Patient Name: KENNY JONES Encounter No: [id number] : 1965 Primary Insurance: [facility] MEDICARE SOLUTIONS Anticipated DC Date: Planned Disposition: Shelter Facility External Planned Provider: [facility]SING AND [facility], MEDICARE REHAB BED DCP follow-up note: CM SPOKE TO [facility] OF [facility], THEY ARE STILL WAITING ON INSURANCE AUTHORIZATION FROM PT'S INSURANCE COMPANY. CM RECEIVED MESSAGE FROM KENYATTA OF [facility], PT HAS BEEN ACCEPTED FOR OUTPATIENT DIALYSIS, MWF, 0745AM AT [facility]. PT CAN START ON 05-23-18. CM NOTIFIED [facility] OF [facility]. CM WAITING ADMISSION DETERMINATION FROM THE [facility] FOR REHAB, INSURANCE AUTHORIZATION FOR REHAB SERVICES FROM PT'S INSURANCE. OUTPATIENT DIALYSIS CLINIC ARRANGEMENT COMPLETED FOR [facility], MWF, 0745AM, START DATE 05-23-18 IF REHAB PLACEMENT IS SECURED. Markie Burnette CASE MANAGEMENT DCP- Discharge Planning Updated by [id number]: Markie Burnette on 05/19/18 3:[address] Patient Name: KENNY JONES Encounter No: [id number] : 1965 Primary Insurance: [facility] MEDIC[facility] SOLUTIONS Anticipated DC Date: Planned Disposition: Shelter Facility External Planned Provider: [facility], MEDICARE REHAB BED DCP follow-up note: [facility] APPROVED FOR [facility] FACILITY ENTRY FOR 60 DAYS OF REHAB. CM FAXED UPDATE TO THE [facility] [employer] AT [phone]. CM SPOKE TO KENYATTA OF [facility] WHO WILL CHECK ON OUTPATIENT DIALYSIS CLINIC ACCEPTANCE. CM WAITING ADMISSION DETERMINATION FROM THE [facility] FOR REHAB, INSURANCE AUTHORIZATION FOR REHAB SERVICES FROM PT'S INSURANCE AND OUTPATIENT DIALYSIS CLINIC ARRANGEMENT BY [facility] COORDINATOR. Markie Burnette CASE MANAGEMENT DCP- Discharge Planning Updated by [id number]: Markie Burnette on 05/16/18 3:[address] Patient Name: KENNY JONES Encounter No: [id number] : 1965 Primary Insurance: [facility] MED[facility] SOLUTIONS Anticipated DC Date: Planned Disposition: Shelter Facility External Planned Provider: [facility], MEDICARE REHAB BED DCP follow-up note: CM RECEIVED [facility] APPROVAL FOR [facility] FACILITY ENTRY FOR 60 DAYS. CM FAXED UPDATE AND [facility] APPROVAL TO THE [facility] [employer] AT [phone]. CM WAITING ADMISSION DETERMINATION FROM THE [facility] FOR REHAB, INSURANCE AUTHORIZATION FOR REHAB SERVICES FROM PT'S INSURANCE AND OUTPATIENT DIALYSIS CLINIC ARRANGEMENT BY [facility] PATIENT PATHWAYS COORDINATOR. Markie Burnette CASE PATRICIA DCP- Discharge Planning Updated by [id number]: Markie Burnette on 05/13/18 6:[address] Patient Name: KENNY CATALANB Encounter No: [id number] : 1965 Primary Insurance: [facility] SOLUTIONS Anticipated DC Date: Planned Disposition: Shelter Facility External Planned Provider: [facility], MEDICARE REHAB BED DCP follow-up note: CM MET WITH PT IN ROOM TO COMPLETE [facility] SCREENING ASSESSMENT. SCREENING FORMS COMPELTED AND SIGNED. CM FAXED TO [employer] AT [phone]. CM WAITING [facility] SCREENING COMPLETION. CM WAITING ADMISSION DETERMINATION FROM THE [facility] FOR REHAB, INSURANCE AUTHORIZATION FOR REHAB SERVICES FROM PT'S INSURANCE AND OUTPATIENT DIALYSIS CLINIC ARRANGEMENT BY [facility] PATIENT PATHWAYS COORDINATOR. Markie Burnette CASE MANAGEMENT DCP- Discharge Planning Updated by [id number]: Markie Burnette on 05/12/18 4:[address] Patient Name: KENNY JONES Encounter No: [id number] : 1965 Primary Insurance: [facility] SOLUTIONS Anticipated DC Date: Planned Disposition: Shelter Facility External Planned Provider: [facility], MEDICARE REHAB BED DCP follow-up note: CM MET WITH PT IN ROOM TO DISCUSS DISCHARGE PLANNING AND NEEDS. PT REPORTS HE CANNOT GO HOME ALONE LIKE THIS AND NEEDS REHAB FIRST. CM DISCUSSED REHAB OPTIONS AND LOCATIONS. PT DOES NOT WANT TUBE BENDER CARE AND ASKED FOR THE [facility] FOR REHAB SERVICES. CHOICE LETTER SIGNED FOR THE [facility]. CM ADVISED PT THAT KENYATTA CHRISTOPHER OF [facility] WOULD BE IN CONTACT WITH PT REGARDING OUTPATIENT DIALYSIS CLINIC ARRANGEMENTS. PT REPORTS LIVING IN [place] AND HOPES TO BE INDEPENDENT AND RIDING HIS SCOOTER FOR TRANSPORT AFTER REHAB IS COMPLETED. PT REPORTS HIS BROTHER IS ASSISTING WITH CARING FOR PT'S DOG AT HOME AND PAYING PT'S BILLS WITH PT'S CHECK WHILE PT IS IN THE HOSPITAL. PT IS NOT ELIGIBLE FOR FREE TRANSPORT WITH MEDICAID TRANSPORTATION HE IS "QMB" ONLY. CM FAXED REFERRAL TO THE [facility] [employer] AT [phone]. CM WAITING ADMISSION DETERMINATION FROM THE [facility] FOR REHAB, INSURANCE AUTHORIZATION FOR REHAB SERVICES FROM PT'S INSURANCE AND OUTPATIENT DIALYSIS CLINIC ARRANGEMENT BY [facility] PATIENT PATHWAYS COORDINATOR. Markie Burnette CASE MANAGEMENT DCP- Discharge Planning Updated by [id number]: Markie Burnette on 05/12/18 11:[address] Patient Name: KENNY JONES Encounter No: [id number] : 1965 Primary Insurance: [facility] MED[facility] SOLUTIONS Anticipated DC Date: Planned Disposition: Home DCP follow-up note: CM RECEIVED ORDER FOR OUTPATIENT DIALYSIS AND POSSIBLE REHAB PLACEMENT NEEDS. [facility] NOTIFED KENYATTA OF [facility] FOR NEW DAILYSIS CLINIC ARRANGEMENT. CM ATTEMPTED TO MEET WITH PT FOR INITIAL ASSESSMENT OF DISCHARGE NEEDS. PT WAS NOT IN ROOM AT APPROXIMATELY 97431 HOURS. CM TO ATTEMPT ASSESSMENT OF PT AT A LATER TIME. Markie Burnette, CASE MANAGEMENT DCP- Discharge Planning Updated by [id number]: Sonia Wyatt on 05/06/18 8:[address] Patient Name: KENNY JONES Admission Status: ER Accout number: [id number] Admission Date: 05-01-2018 : 1965 Admission Diagnosis:TOXIC ENCEPHALOPATHY Attending: HANNAH HOBSON Current LOS: 5 Anticipated DC Date: Planned Disposition: Home Primary Insurance: [facility] MEDIC[facility] SOLUTIONS Discharge Planning Comments: CM met with patient at bedside after obtaining permission. Patient states he was living at home alone. Patient plans to return to his apartment upon discharge. Patient may need rehab before discharge. Patient denies any needs at this time. CM will continue to follow and assist with discharge planning / needs. Bowling Ball Molder: Sonia Wyatt DCPIA - Discharge Planning Initial Assessment Updated by [id number]: Sonia Wyatt on 05/06/18 8:59 pm * Is the patient Alert and Oriented? Yes * How many steps to enter\\exit or inside your home? * PCP Deirdre Rose * Pharmacy [facility] * Preadmission Environment Home Alone * ADLs Independent * Equipment None * List name and contact numbers for known caregivers / representatives who currently or will assist patient after discharge: Bryon Jones - [phone] * Verbal permission to speak to the caregivers and representatives has been obtained from the patient. N/A * Community resources currently utilized None * Additional services required to return to the preadmission environment? No * Can the patient safely return to the preadmission environment? Yes * Has this patient been hospitalized within the prior 30 days at any hospital? Yes External Providers External Provider: [facility] Next Contact Date: 05/26/2018 Service Request Date: Service Type: Resolution: Reviewer: Comments: Coverage Notice Reviewer: [id number] - Markie Burnette Notice Issued Date-Time: 05/12/2018 13:25 Notice Type: Patient Choice Letter Notice Delivered To: Patient Relationship to Patient: Ceramic Tile Setter Name: Delivery Method: HAND - Hand Delivered Sagrario Days: Prior Verbal Notification: Recipient Understood Notice: Yes Recipient Signature: Yes Med Rec Note Co-signed by Attending: Coverage Notice Comment: [facility] Last DP export: 05/26/18 7:10 a Patient Name: KENNY JONES Page 90652 at 0816 All edits/amendments must be made on the electronic document DICTATION DATE: 05/26/18815 ELECTROLYSIS NEEDLE OPERATOR: SPENCER 05/26/18815 RPT#: [id number] DC DATE: STATUS: ADM IN [facility] [address] [place] [address] END OF REPORT
--- NOTE | 2018-05-26 08:23 | MORECARE ---
CASE MANAGEMENT DISCHARGE SUMMARY PATIENT: KENNY JONES UNIT: [id number] ADM DATE: 05/01/18 AGE: 52 : 67 SEX: M ROOM/BED: D.2107 AUTHOR: MARGE,DOC PHYSICIAN: REFERRING PHYSICIAN: HANNAH HOBSON MD DATE OF SERVICE: 05/26/18 Discharge Plan Patient Name: KENNY JONES Facility: [facility]:[place] : 1965 Planned Disposition: Senior Living Facility Anticipated Discharge Date: Discharge Date: Expected LOS: Initial Reviewer: [id number] Initial Review Date: 05/06/2018 Generated: 05/26/18 9:22 am Comments DCP- Discharge Planning Updated by [id number]: Markie Burnette on 05/26/18 7:[address] Patient Name: KENNY JONES Encounter No: [id number] : 1965 Primary Insurance: [facility] [employer] Anticipated DC Date: Planned Disposition: Senior Living Facility External Planned Provider: [facility] ACC[facility]PTING [facility] DCP follow-up note: CM REVIEWED CHART, FAXED UPDATE TO [facility] FOR REHAB PLACEMENT REQUEST, . CM FAXED REFERRAL TO [facility] FOR REHAB REQUEST, . CM FAXED UPDATE TO [facility] AT [phone]. CM FAXED REFERRAL TO [facility] AT [phone]. PT HAS BEEN DECLINED AT THE [facility] AND [facility]. [facility] HAS APPROVED PT FOR REHAB ENTRY FOR UP TO 60 DAYS. PT HAS BEEN ACCEPTED FOR OUTPATIENT DIALYSIS, MWF, 0745AM AT [facility]. CM WAITING ADMISSION DETERMINATIONS FROM [facility], JENNIFER, [facility] AND [facility]. Markie Burnette, CASE MANAGEMENT DCP- Discharge Planning Updated by [id number]: Jazmine Conroy on 05/24/18 12:[address] Patient Name: KENNY JONES Admission Status: ER Accout number: [id number] Admission Date: 05-01-2018 : 1965 Admission Diagnosis:TOXIC ENCEPHALOPATHY Attending: HANNAH HOBSON Current LOS: 23 Anticipated DC Date: Planned Disposition: Senior Living Facility Primary Insurance: [facility] [employer] [employer] Discharge Planning Comments: CM CALLED AND LEFT MSG WITH [facility] AND FAXED REFERRAL PAPERS. WAITING FOR CALL BACK FOR DETERMINATION. Business Development Recruiter: Jazmine Conroy DCP- Discharge Planning Updated by [id number]: Markie Burnette on 05/23/18 7:[address] Patient Name: KENNY JONES Encounter No: [id number] : 1965 Primary Insurance: [facility] [employer] [employer] Anticipated DC Date: Planned Disposition: Senior Living Facility External Planned Provider:[facility]URSING [facility] RE[facility], MEDICARE REHAB BED DCP follow-up note: CM FAXED UPDATE TO THE [facility] VIA [facility], , FOR REHAB REQUEST. CM WAITING ADMISSION DETERMINATION FROM THE [facility] FOR REHAB, INSURANCE AUTHORIZATION FOR REHAB SERVICES FROM PT'S INSURANCE. OUTPATIENT DIALYSIS CLINIC ARRANGEMENT COMPLETED FOR [facility], MWF, 0745AM, START DATE 05-23-18 IF REHAB PLACEMENT IS SECURED. Markie Burnette CASE MANAGEMENT DCP- Discharge Planning Updated by [id number]: Markie Burnette on 05/20/18 1:[address] Patient Name: KENNY CATALANB Encounter No: [id number] : 1965 Primary Insurance: [facility] [employer] [employer]UT[employer] Anticipated DC Date: Planned Disposition: Senior Living Facility External Planned Provider: [facility] NURSING [facility] RE[facility], MEDICARE REHAB BED DCP follow-up note: CM SPOKE TO RAUL OF THE [facility], THEY ARE STILL WAITING ON INSURANCE AUTHORIZATION FROM PT'S INSURANCE COMPANY. CM RECEIVED MESSAGE FROM KENYATTA OF [facility], PT HAS BEEN ACCEPTED FOR OUTPATIENT DIALYSIS, MWF, 0745AM AT [facility]. PT CAN START ON 05-23-18. CM NOTIFIED RAUL OF THE [facility]. CM WAITING ADMISSION DETERMINATION FROM THE [facility] FOR REHAB, INSURANCE AUTHORIZATION FOR REHAB SERVICES FROM PT'S INSURANCE. OUTPATIENT DIALYSIS CLINIC ARRANGEMENT COMPLETED FOR [facility], MWF, 0745AM, START DATE 05-23-18 IF REHAB PLACEMENT IS SECURED. Markie Burnette CASE MANAGEMENT DCP- Discharge Planning Updated by [id number]: Markie Burnette on 05/19/18 3:[address] Patient Name: KENNY JONES Encounter No: [id number] : 1965 Primary Insurance: [facility] [employer] [employer]UT[employer] Anticipated DC Date: Planned Disposition: Senior Living Facility External Planned Provider: [facility], MEDICARE REHAB BED DCP follow-up note: [facility] APPROVED FOR INTERMEDIATE FACILITY ENTRY FOR 60 DAYS OF REHAB. CM FAXED UPDATE TO THE [facility]IA [employer] AT [phone]. CM SPOKE TO KENYATTA OF [facility] WHO WILL CHECK ON OUTPATIENT DIALYSIS CLINIC ACCEPTANCE. CM WAITING ADMISSION DETERMINATION FROM THE [facility] FOR REHAB, INSURANCE AUTHORIZATION FOR REHAB SERVICES FROM PT'S INSURANCE AND OUTPATIENT DIALYSIS CLINIC ARRANGEMENT BY [facility] PATIENT PATHWAYS COORDINATOR. DIOR Ocampo MANAGEMENT DCP- Discharge Planning Updated by [id number]: Markie Burnette on 05/16/18 3:[address] Patient Name: KENNY JONES Encounter No: [id number] : 1965 Primary Insurance: [facility] [employer] [employer] Anticipated DC Date: Planned Disposition: Senior Living Facility External Planned Provider: [facility] NURSING [facility], MEDICARE REHAB BED DCP follow-up note: CM RECEIVED [employer] APPROVAL FOR INTERMEDIATE FACILITY ENTRY FOR 60 DAYS. CM FAXED UPDATE AND [facility] APPROVAL TO THE [facility]IA [employer] AT [phone]. CM WAITING ADMISSION DETERMINATION FROM THE [facility] FOR REHAB, INSURANCE AUTHORIZATION FOR REHAB SERVICES FROM PT'S INSURANCE AND OUTPATIENT DIALYSIS CLINIC ARRANGEMENT BY [facility] PATIENT PATHWAYS COORDINATOR. DIOR Ocampo DCP- Discharge Planning Updated by [id number]: Markie Burnette on 05/13/18 6:[address] Patient Name: KENNY JONES Encounter No: [id number] : 1965 Primary Insurance: [facility] [employer] [employer]UT[employer] Anticipated DC Date: Planned Disposition: Senior Living Facility External Planned Provider: [facility] NURSING AND REHAB, MEDICARE REHAB BED DCP follow-up note: CM MET WITH PT IN ROOM TO COMPLETE [facility] SCREENING ASSESSMENT. SCREENING FORMS COMPELTED AND SIGNED. CM FAXED TO [employer] AT [phone]. CM WAITING [facility] SCREENING COMPLETION. CM WAITING ADMISSION DETERMINATION FROM THE [facility] FOR REHAB, INSURANCE AUTHORIZATION FOR REHAB SERVICES FROM PT'S INSURANCE AND OUTPATIENT DIALYSIS CLINIC ARRANGEMENT BY [facility] PATIENT PATHWAYS COORDINATOR. DIOR Ocampo MANAGEMENT DCP- Discharge Planning Updated by [id number]: Markie Burnette on 05/12/18 4:[address] Patient Name: KENNY JONES Encounter No: [id number] : 1965 Primary Insurance: [facility] [employer] [employer]UT[employer] Anticipated DC Date: Planned Disposition: Senior Living Facility External Planned Provider: [facility] NURSING AND REHAB, MEDICARE REHAB BED DCP follow-up note: CM MET WITH PT IN ROOM TO DISCUSS DISCHARGE PLANNING AND NEEDS. PT REPORTS HE CANNOT GO HOME ALONE LIKE THIS AND NEEDS REHAB FIRST. CM DISCUSSED REHAB OPTIONS AND LOCATIONS. PT DOES NOT WANT DENTAL ASSISTANT CARE AND ASKED FOR THE [facility] FOR REHAB SERVICES. CHOICE LETTER SIGNED FOR THE [facility]. CM ADVISED PT THAT KENYATTA CHRISTOPHER OF [facility] WOULD BE IN CONTACT WITH PT REGARDING OUTPATIENT DIALYSIS CLINIC ARRANGEMENTS. PT RE[place]TS LIVING IN [place] AND HOPES TO BE INDEPENDENT AND RIDING HIS SCOOTER FOR TRANSPORT AFTER REHAB IS COMPLETED. PT REPORTS HIS BROTHER IS ASSISTING WITH CARING FOR PT'S DOG AT HOME AND PAYING PT'S BILLS WITH PT'S CHECK WHILE PT IS IN THE HOSPITAL. PT IS NOT ELIGIBLE FOR FREE TRANSPORT WITH MEDICAID TRANSPORTATION HE IS "QMB" ONLY. CM FAXED REFERRAL TO THE [facility]IA [employer] AT [phone]. CM WAITING ADMISSION DETERMINATION FROM THE [facility] FOR REHAB, INSURANCE AUTHORIZATION FOR REHAB SERVICES FROM PT'S INSURANCE AND OUTPATIENT DIALYSIS CLINIC ARRANGEMENT BY [employer] [facility] COORDINATOR. DIOR Ocampo DCP- Discharge Planning Updated by [id number]: Markie Burnette on 05/12/18 11:[address] Patient Name: KENNY JONES Encounter No: [id number] : 1965 Primary Insurance: [facility] [employer] [employer]UTIONS Anticipated DC Date: Planned Disposition: Home DCP follow-up note: CM RECEIVED ORDER FOR OUTPATIENT DIALYSIS AND POSSIBLE REHAB PLACEMENT NEEDS. [facility] NOTIFED KENYATTA OF [facility] FOR NEW DAILYSIS CLINIC ARRANGEMENT. CM ATTEMPTED TO MEET WITH PT FOR INITIAL ASSESSMENT OF DISCHARGE NEEDS. PT WAS NOT IN ROOM AT APPROXIMATELY [id number] HOURS. CM TO ATTEMPT ASSESSMENT OF PT AT A LATER TIME. Markie Burnette CASE MANAGEMENT DCP- Discharge Planning Updated by [id number]: Sonia Wyatt on 05/06/18 8:[address] Patient Name: KENNY JONES Admission Status: ER Accout number: [id number] Admission Date: 05-01-2018 : 1965 Admission Diagnosis:TOXIC ENCEPHALOPATHY Attending: HANNAH HOBSON Current LOS: 5 Anticipated DC Date: Planned Disposition: Home Primary Insurance: [facility] [employer] [employer]UTIONS Discharge Planning Comments: CM met with patient at bedside after obtaining permission. Patient states he was living at home alone. Patient plans to return to his apartment upon discharge. Patient may need rehab before discharge. Patient denies any needs at this time. CM will continue to follow and assist with discharge planning / needs. Business Development Recruiter: Sonia CHAVEZ - Discharge Planning Initial Assessment Updated by [id number]: Sonia Wyatt on 05/06/18 8:59 pm * Is the patient Alert and Oriented? Yes * How many steps to enter\\exit or inside your home? * PCP Deirdre Rose * Pharmacy [facility] * Preadmission Environment Home Alone * ADLs Independent * Equipment None * List name and contact numbers for known caregivers / representatives who currently or will assist patient after discharge: Bryon Jones - [facility] [phone] * Verbal permission to speak to the caregivers and representatives has been obtained from the patient. N/A * Community resources currently utilized None * Additional services required to return to the preadmission environment? No * Can the patient safely return to the preadmission environment? Yes * Has this patient been hospitalized within the prior 30 days at any hospital? Yes Coverage Notice Reviewer: [id number] Lynne Burnette Notice Issued Date-Time: 05/12/2018 13:25 Notice Type: Patient Choice Letter Notice Delivered To: Patient Relationship to Patient: Computer Engineering Professor Name: Delivery Method: HAND - Hand Delivered Sagrario Days: Prior Verbal Notification: Recipient Understood Notice: Yes Recipient Signature: Yes Med Rec Note Co-signed by Attending: Coverage Notice Comment: [facility] FOR REH[facility] Last DP export: 05/26/18 7:16 a Patient Name: KENNY JONES Page 36596 at 0823 All edits/amendments must be made on the electronic document DICTATION DATE: 05/26/18821 ETL LEAD: SPENCER 05/26/18821 RPT#: [id number] DC DATE: STATUS: ADM IN [facility] [address] [place] [address] END OF REPORT
--- NOTE | 2018-05-26 08:49 | MORECARE ---
CASE MANAGEMENT DISCHARGE SUMMARY PATIENT: KENNY JONES UNIT: [id number] ADM DATE: 05/01/18 AGE: 52 : 67 SEX: M ROOM/BED: D.2103 AUTHOR: MARGE,DOC PHYSICIAN: REFERRING PHYSICIAN: HANNAH HOBSON MD DATE OF SERVICE: 05/26/18 Discharge Plan Patient Name: KENNY JONES Facility: [facility]:[place] : 1965 Planned Disposition: Intermediate Facility Anticipated Discharge Date: Discharge Date: Expected LOS: Initial Reviewer: [id number] Initial Review Date: 05/06/2018 Generated: 05/26/18 9:49 am Comments DCP- Discharge Planning Updated by [id number]: Markie Burnette on 05/26/18 7:[address] Patient Name: KENNY JONES Encounter No: [id number] : 1965 Primary Insurance: [facility] MEDIC[facility] SOLUTIONS Anticipated DC Date: Planned Disposition: Intermediate Facility External Planned Provider: [facility] ACCEPTING FACILITY DCP follow-up note: CM REVIEWED CHART, FAXED UPDATE TO [facility] FOR REHAB PLACEMENT REQUEST, . CM FAXED REFERRAL TO [facility] FOR REHAB REQUEST, . CM FAXED UPDATE TO [facility] AT [phone]. CM FAXED REFERRAL TO [facility] AT [phone]. PT HAS BEEN DECLINED AT THE [facility] AND [facility]. [facility] HAS APPROVED PT FOR REHAB ENTRY FOR UP TO 60 DAYS. PT HAS BEEN ACCEPTED FOR OUTPATIENT DIALYSIS, MWF, 0745AM AT [facility]. CM WAITING ADMISSION DETERMINATIONS FROM [facility], JENNIFER, [facility] AND [facility]. Markie Burnette, CASE MANAGEMENT DCP- Discharge Planning Updated by [id number]: Jazmine Conroy on 05/24/18 12:[address] Patient Name: KENNY JONES Admission Status: ER Accout number: [id number] Admission Date: 05-01-2018 : 1965 Admission Diagnosis:TOXIC ENCEPHALOPATHY Attending: HANNAH HOBSON Current LOS: 23 Anticipated DC Date: Planned Disposition: Intermediate Facility Primary Insurance: [facility] MED[employer] [employer]UTIONS Discharge Planning Comments: CM CALLED AND LEFT MSG WITH [facility] AND FAXED REFERRAL PAPERS. WAITING FOR CALL BACK FOR DETERMINATION. Operations Logistics Analyst: Jazmine Conroy DCP- Discharge Planning Updated by [id number]: Markie Burnette on 05/23/18 7:[address] Patient Name: KENNY JONES Encounter No: [id number] : 1965 Primary Insurance: [facility] [employer] [employer]UT[employer] Anticipated DC Date: Planned Disposition: Intermediate Facility External Planned Provider:[facility] NURSING [facility] REHAB, MEDICARE REHAB BED DCP follow-up note: CM FAXED UPDATE TO THE [facility] VIA [facility], , FOR REHAB REQUEST. CM WAITING ADMISSION DETERMINATION FROM THE [facility] FOR REHAB, INSURANCE AUTHORIZATION FOR REHAB SERVICES FROM PT'S INSURANCE. OUTPATIENT DIALYSIS CLINIC ARRANGEMENT COMPLETED FOR [facility], MWF, 0745AM, START DATE 05-23-18 IF REHAB PLACEMENT IS SECURED. Markie Burnette CASE MANAGEMENT DCP- Discharge Planning Updated by [id number]: Markie Burnette on 05/20/18 1:[address] Patient Name: KENNY CATALANB Encounter No: [id number] : 1965 Primary Insurance: [facility] [employer] [employer]UT[employer] Anticipated DC Date: Planned Disposition: Intermediate Facility External Planned Provider: [facility] NURSING [facility] REH[facility], MEDICARE REHAB BED DCP follow-up note: CM SPOKE TO RAUL OF THE [facility], THEY ARE STILL WAITING ON INSURANCE AUTHORIZATION FROM PT'S INSURANCE COMPANY. CM RECEIVED MESSAGE FROM KENYATTA OF [facility], PT HAS BEEN ACCEPTED FOR OUTPATIENT DIALYSIS, MWF, 0745AM AT [facility]. PT CAN START ON 05-23-18. CM NOTIFIED RAUL OF THE [facility]. CM WAITING ADMISSION DETERMINATION FROM THE [facility] FOR REHAB, INSURANCE AUTHORIZATION FOR REHAB SERVICES FROM PT'S INSURANCE. OUTPATIENT DIALYSIS CLINIC ARRANGEMENT COMPLETED FOR [facility], MWF, 0745AM, START DATE 05-23-18 IF REHAB PLACEMENT IS SECURED. Markie Burnette CASE MANAGEMENT DCP- Discharge Planning Updated by [id number]: Markie Burnette on 05/19/18 3:[address] Patient Name: KENYN JONES Encounter No: [id number] : 1965 Primary Insurance: [facility] [employer] [employer]UTIONS Anticipated DC Date: Planned Disposition: Intermediate Facility External Planned Provider: [facility] N[facility]SING [facility] RE[facility], MEDICARE REHAB BED DCP follow-up note: [facility] APPROVED FOR CUSTODIAL FACILITY ENTRY FOR 60 DAYS OF REHAB. CM FAXED UPDATE TO THE [facility]IA [employer] AT [phone]. CM SPOKE TO KENYATTA OF [facility] WHO WILL CHECK ON OUTPATIENT DIALYSIS CLINIC ACCEPTANCE. CM WAITING ADMISSION DETERMINATION FROM THE [facility] FOR REHAB, INSURANCE AUTHORIZATION FOR REHAB SERVICES FROM PT'S INSURANCE AND OUTPATIENT DIALYSIS CLINIC ARRANGEMENT BY [facility] PATIENT PATHWAYS COORDINATOR. DIOR Ocampo MANAGEMENT DCP- Discharge Planning Updated by [id number]: Markie Burnette on 05/16/18 3:[address] Patient Name: KENNY JONES Encounter No: [id number] : 1965 Primary Insurance: [facility] [employer] [employer] Anticipated DC Date: Planned Disposition: Intermediate Facility External Planned Provider: [facility], MEDICARE REHAB BED DCP follow-up note: CM RECEIVED [employer] APPROVAL FOR CUSTODIAL FACILITY ENTRY FOR 60 DAYS. CM FAXED UPDATE AND [facility] APPROVAL TO THE [facility]IA [employer] AT [phone]. CM WAITING ADMISSION DETERMINATION FROM THE [facility] FOR REHAB, INSURANCE AUTHORIZATION FOR REHAB SERVICES FROM PT'S INSURANCE AND OUTPATIENT DIALYSIS CLINIC ARRANGEMENT BY [facility] PATIENT PATHWAYS COORDINATOR. DIOR Ocampo DCP- Discharge Planning Updated by [id number]: Markie Burnette on 05/13/18 6:[address] Patient Name: KENNY JONES Encounter No: [id number] : 1965 Primary Insurance: [facility] [employer] [employer]UT[employer] Anticipated DC Date: Planned Disposition: Intermediate Facility External Planned Provider: [facility], MEDICARE REHAB BED DCP follow-up note: CM MET WITH PT IN ROOM TO COMPLETE [facility] SCREENING ASSESSMENT. SCREENING FORMS COMPELTED AND SIGNED. CM FAXED TO [employer] AT [phone]. CM WAITING [facility] SCREENING COMPLETION. CM WAITING ADMISSION DETERMINATION FROM THE [facility] FOR REHAB, INSURANCE AUTHORIZATION FOR REHAB SERVICES FROM PT'S INSURANCE AND OUTPATIENT DIALYSIS CLINIC ARRANGEMENT BY [facility] PATIENT PATHWAYS COORDINATOR. DIOR Ocampo MANAGEMENT DCP- Discharge Planning Updated by [id number]: Markie Burnette on 05/12/18 4:[address] Patient Name: KENNY JONES Encounter No: [id number] : 1965 Primary Insurance: [facility] [employer] [employer]UT[employer] Anticipated DC Date: Planned Disposition: Intermediate Facility External Planned Provider: [facility], MEDICARE REHAB BED DCP follow-up note: CM MET WITH PT IN ROOM TO DISCUSS DISCHARGE PLANNING AND NEEDS. PT REPORTS HE CANNOT GO HOME ALONE LIKE THIS AND NEEDS REHAB FIRST. CM DISCUSSED REHAB OPTIONS AND LOCATIONS. PT DOES NOT WANT TOOL KEEPER CARE AND ASKED FOR THE [facility] FOR REHAB SERVICES. CHOICE LETTER SIGNED FOR THE [facility]. CM ADVISED PT THAT KENYATTA CHRISTOPHER OF [facility] [facility] WOULD BE IN CONTACT WITH PT REGARDING OUTPATIENT DIALYSIS CLINIC ARRANGEMENTS. PT REPORTS LIVING IN [place] AND HOPES TO BE INDEPENDENT AND RIDING HIS SCOOTER FOR TRANSPORT AFTER REHAB IS COMPLETED. PT REPORTS HIS BROTHER IS ASSISTING WITH CARING FOR PT'S DOG AT HOME AND PAYING PT'S BILLS WITH PT'S CHECK WHILE PT IS IN THE HOSPITAL. PT IS NOT ELIGIBLE FOR FREE TRANSPORT WITH MEDICAID TRANSPORTATION HE IS "Q[facility]" ONLY. CM FAXED REFERRAL TO THE [facility]IA [employer] AT [phone]. CM WAITING ADMISSION DETERMINATION FROM THE [facility] FOR REHAB, INSURANCE AUTHORIZATION FOR REHAB SERVICES FROM PT'S INSURANCE AND OUTPATIENT DIALYSIS CLINIC ARRANGEMENT BY [employer] [facility] COORDINATOR. DIOR Ocampo DCP- Discharge Planning Updated by [id number]: Markie Burnette on 05/12/18 11:[address] Patient Name: KENNY JONES Encounter No: [id number] : 1965 Primary Insurance: [facility] [employer] [employer] Anticipated DC Date: Planned Disposition: Home DCP follow-up note: CM RECEIVED ORDER FOR OUTPATIENT DIALYSIS AND POSSIBLE REHAB PLACEMENT NEEDS. [facility] NOTIFED KENYATTA OF [facility] FOR NEW DAILYSIS CLINIC ARRANGEMENT. CM ATTEMPTED TO MEET WITH PT FOR INITIAL ASSESSMENT OF DISCHARGE NEEDS. PT WAS NOT IN ROOM AT APPROXIMATELY [address]99[address] HOURS. CM TO ATTEMPT ASSESSMENT OF PT AT A LATER TIME. Markie Burnette CASE MANAGEMENT DCP- Discharge Planning Updated by [id number]: Sonia Wyatt on 05/06/18 8:[address] Patient Name: KENNY JONES Admission Status: ER Accout number: [id number] Admission Date: 05-01-2018 : 1965 Admission Diagnosis:TOXIC ENCEPHALOPATHY Attending: HANNAH HOBSON Current LOS: 5 Anticipated DC Date: Planned Disposition: Home Primary Insurance: [facility] MED[employer]UT[employer] Discharge Planning Comments: CM met with patient at bedside after obtaining permission. Patient states he was living at home alone. Patient plans to return to his apartment upon discharge. Patient may need rehab before discharge. Patient denies any needs at this time. CM will continue to follow and assist with discharge planning / needs. Operations Logistics Analyst: Sonia CHAVEZ - Discharge Planning Initial Assessment Updated by [id number]: Sonia Wyatt on 05/06/18 8:59 pm * Is the patient Alert and Oriented? Yes * How many steps to enter\\exit or inside your home? * PCP Deirdre Rose * Pharmacy [facility] * Preadmission Environment Home Alone * ADLs Independent * Equipment None * List name and contact numbers for known caregivers / representatives who currently or will assist patient after discharge: Bryon Jones [facility] [phone] * Verbal permission to speak to the caregivers and representatives has been obtained from the patient. N/A * Community resources currently utilized None * Additional services required to return to the preadmission environment? No * Can the patient safely return to the preadmission environment? Yes * Has this patient been hospitalized within the prior 30 days at any hospital? Yes External Providers External Provider: [facility] Next Contact Date: 05/26/2018 Service Request Date: Service Type: Resolution: Reviewer: Comments: Coverage Notice Reviewer: [id number] - Mrakie Burnette Notice Issued Date-Time: 05/12/2018 13:25 Notice Type: Patient Choice Letter Notice Delivered To: Patient Relationship to Patient: Community Development Manager Name: Delivery Method: HAND - Hand Delivered Sagrario Days: Prior Verbal Notification: Recipient Understood Notice: Yes Recipient Signature: Yes Med Rec Note Co-signed by Attending: Coverage Notice Comment: [facility] Last DP export: 05/26/18 7:23 a Patient Name: KENNY JONES Page 24051 at 0849 All edits/amendments must be made on the electronic document DICTATION DATE: 05/26/18 0848 FITNESS CONSULTANT: SPENCER 05/26/1848 RPT#: [id number] DC DATE: STATUS: ADM IN [facility] [address] [place] [address] END OF REPORT
--- NOTE | 2018-05-26 10:49 | MORECARE ---
CASE MANAGEMENT DISCHARGE SUMMARY PATIENT: KENNY JONES UNIT: [id number] ADM DATE: 05/01/18 AGE: 52 : 67 SEX: M ROOM/BED: D.2100 AUTHOR: MARGE,DOC PHYSICIAN: REFERRING PHYSICIAN: HANNAH HOBSON MD DATE OF SERVICE: 05/26/18 Discharge Plan Patient Name: KENNY JONES Facility: [facility]:[place] : 1965 Planned Disposition: Intermediate Facility Anticipated Discharge Date: Discharge Date: Expected LOS: Initial Reviewer: [id number] Initial Review Date: 05/06/2018 Generated: 05/26/18 11:49 am Comments DCP- Discharge Planning Updated by [id number]: Markie Burnette on 05/26/18 7:[address] Patient Name: KENNY JONES Encounter No: [id number] : 1965 Primary Insurance: [facility] [employer] Anticipated DC Date: Planned Disposition: Intermediate Facility External Planned Provider: [facility] ACCEPTING FACILITY DCP follow-up note: CM REVIEWED CHART, FAXED UPDATE TO [facility] FOR REHAB PLACEMENT REQUEST, . CM FAXED REFERRAL TO [facility] FOR REHAB REQUEST, . CM FAXED UPDATE TO [facility] AT [phone]. CM FAXED REFERRAL TO [facility] AT [phone]. PT HAS BEEN DECLINED AT [facility] AND [facility]. [facility] HAS APPROVED PT FOR REHAB ENTRY FOR UP TO 60 DAYS. PT HAS BEEN ACCEPTED FOR OUTPATIENT DIALYSIS, MWF, 0745AM AT [facility]. CM WAITING ADMISSION DETERMINATIONS FROM [facility], [facility], [facility] AND [facility]. Markie Burnette, CASE MANAGEMENT DCP- Discharge Planning Updated by [id number]: Jazmine Conroy on 05/24/18 12:[address] Patient Name: KENNY JONES Admission Status: ER Accout number: [id number] Admission Date: 05-01-2018 : 1965 Admission Diagnosis:TOXIC ENCEPHALOPATHY Attending: HANNAH HOBSON Current LOS: 23 Anticipated DC Date: Planned Disposition: Intermediate Facility Primary Insurance: [facility] [employer] [employer] Discharge Planning Comments: CM CALLED AND LEFT MSG WITH [facility] AND FAXED REFERRAL PAPERS. WAITING FOR CALL BACK FOR DETERMINATION. Slasher Tender: Jazmine Conroy DCP- Discharge Planning Updated by [id number]: Markie Burnette on 05/23/18 7:[address] Patient Name: KENNY JONES Encounter No: [id number] : 1965 Primary Insurance: [facility] [employer] [employer] Anticipated DC Date: Planned Disposition: Intermediate Facility External Planned Provider:[facility], MEDICARE REHAB BED DCP follow-up note: CM FAXED UPDATE TO [facility], , FOR REHAB REQUEST. CM WAITING ADMISSION DETERMINATION FROM [facility] FOR REHAB, INSURANCE AUTHORIZATION FOR REHAB SERVICES FROM PT'S INSURANCE. OUTPATIENT DIALYSIS CLINIC ARRANGEMENT COMPLETED FOR [facility], MWF, 0745AM, START DATE 05-23-18 IF REHAB PLACEMENT IS SECURED. Markie Burnette CASE MANAGEMENT DCP- Discharge Planning Updated by [id number]: Markie Burnette on 05/20/18 1:[address] Patient Name: KENNY CATALANB Encounter No: [id number] : 1965 Primary Insurance: [facility] [employer] [employer] Anticipated DC Date: Planned Disposition: Intermediate Facility External Planned Provider: [facility], MEDICARE REHAB BED DCP follow-up note: CM SPOKE TO RAUL OF THE [facility], THEY ARE STILL WAITING ON INSURANCE AUTHORIZATION FROM PT'S INSURANCE COMPANY. CM RECEIVED MESSAGE FROM KENYATTA OF [facility], PT HAS BEEN ACCEPTED FOR OUTPATIENT DIALYSIS, MWF, 0745AM AT [facility]. PT CAN START ON 05-23-18. CM NOTIFIED RAUL OF [facility]. CM WAITING ADMISSION DETERMINATION FROM [facility] FOR REHAB, INSURANCE AUTHORIZATION FOR REHAB SERVICES FROM PT'S INSURANCE. OUTPATIENT DIALYSIS CLINIC ARRANGEMENT COMPLETED FOR [facility], MWF, 0745AM, START DATE 05-23-18 IF REHAB PLACEMENT IS SECURED. Markie Burnette CASE MANAGEMENT DCP- Discharge Planning Updated by [id number]: Markie Burnette on 05/19/18 3:[address] Patient Name: KENNY JONES Encounter No: [id number] : 1965 Primary Insurance: [facility] [employer] [employer] Anticipated DC Date: Planned Disposition: Intermediate Facility External Planned Provider: [facility], MEDICARE REHAB BED DCP follow-up note: [facility] APPROVED FOR RETIREMENT FACILITY ENTRY FOR 60 DAYS OF REHAB. CM FAXED UPDATE TO [facility] AT [phone]. CM SPOKE TO KENYATTA OF [facility] WHO WILL CHECK ON OUTPATIENT DIALYSIS CLINIC ACCEPTANCE. CM WAITING ADMISSION DETERMINATION FROM [facility] FOR REH[facility], INSURANCE AUTHORIZATION FOR REHAB SERVICES FROM PT'S INSURANCE AND OUTPATIENT DIALYSIS CLINIC ARRANGEMENT BY [facility] COORDINATOR. DIOR Ocampo MANAGEMENT DCP- Discharge Planning Updated by [id number]: Markie Burnette on 05/16/18 3:[address] Patient Name: KENNY JONES Encounter No: [id number] : 1965 Primary Insurance: [facility] [employer] [employer] Anticipated DC Date: Planned Disposition: Intermediate Facility External Planned Provider: [facility], MEDICARE REHAB BED DCP follow-up note: CM RECEIVED [facility] APPROVAL FOR RETIREMENT FACILITY ENTRY FOR 60 DAYS. CM FAXED UPDATE AND [facility] APPR[facility] TO [facility] [employer] AT [phone]. CM WAITING ADMISSION DETERMINATION FROM [facility] FOR RE[facility], INSURANCE AUTHORIZATION FOR REHAB SERVICES FROM PT'S INSURANCE AND OUTPATIENT DIALYSIS CLINIC ARRANGEMENT BY [facility] COORDINATOR. DIOR Ocampo DCP- Discharge Planning Updated by [id number]: Markie Burnette on 05/13/18 6:[address] Patient Name: KENNY JONES Encounter No: [id number] : 1965 Primary Insurance: [facility] [employer] [employer] Anticipated DC Date: Planned Disposition: Intermediate Facility External Planned Provider: [facility], MEDICARE REHAB BED DCP follow-up note: CM MET WITH PT IN ROOM TO COMPLETE [facility] SCREENING ASSESSMENT. SCREENING FORMS COMPELTED AND SIGNED. CM FAXED TO [facility] AT [phone]. CM WAITING [facility] SCREENING COMPLETION. CM WAITING ADMISSION DETERMINATION FROM [facility] FOR REHAB, INSURANCE AUTHORIZATION FOR REHAB SERVICES FROM PT'S INSURANCE AND OUTPATIENT DIALYSIS CLINIC ARRANGEMENT BY [facility] COORDINATOR. DIOR Ocampo MANAGEMENT DCP- Discharge Planning Updated by [id number]: Markie Burnette on 05/12/18 4:[address] Patient Name: KENNY JONES Encounter No: [id number] : 1965 Primary Insurance: [facility] [employer] [employer] Anticipated DC Date: Planned Disposition: Intermediate Facility External Planned Provider: [facility], MEDICARE REHAB BED DCP follow-up note: CM MET WITH PT IN ROOM TO DISCUSS DISCHARGE PLANNING AND NEEDS. PT REPORTS HE CANNOT GO HOME ALONE LIKE THIS AND NEEDS REHAB FIRST. CM DISCUSSED REHAB OPTIONS AND LOCATIONS. PT DOES NOT WANT [facility] AND ASKED FOR [facility] FOR REHAB SERVICES. CHOICE LETTER SIGNED FOR [facility]. CM ADVISED PT THAT KENYATTA CHRISTOPHER OF [facility] WOULD BE IN CONTACT WITH PT REGARDING OUTPATIENT DIALYSIS CLINIC ARRANGEMENTS. PT REPORTS LIVING IN [place] AND HOPES TO BE INDEPENDENT AND RIDING HIS SCOOTER FOR TRANSPORT AFTER REHAB IS COMPLETED. PT REPORTS HIS BROTHER IS ASSISTING WITH CARING FOR PT'S DOG AT HOME AND PAYING PT'S BILLS WITH PT'S CHECK WHILE PT IS IN THE HOSPITAL. PT IS NOT ELIGIBLE FOR FREE TRANSPORT WITH MEDICAID TRANSPORTATION HE IS "QMB" ONLY. CM FAXED REFERRAL TO [facility] [employer] AT [phone]. CM WAITING ADMISSION DETERMINATION FROM [facility] FOR REHAB, INSURANCE AUTHORIZATION FOR REHAB SERVICES FROM PT'S INSURANCE AND OUTPATIENT DIALYSIS CLINIC ARRANGEMENT BY [facility] COORDINATOR. DIOR Ocampo DCP- Discharge Planning Updated by [id number]: Markie Burnette on 05/12/18 11:[address] Patient Name: KENNY JONES Encounter No: [id number] : 1965 Primary Insurance: [facility] [employer] [employer] Anticipated DC Date: Planned Disposition: Home DCP follow-up note: CM RECEIVED ORDER FOR OUTPATIENT DIALYSIS AND POSSIBLE REHAB PLACEMENT NEEDS. [facility] NOTIFED KENYATTA OF [facility] FOR NEW DAILYSIS CLINIC ARRANGEMENT. CM ATTEMPTED TO MEET WITH PT FOR INITIAL ASSESSMENT OF DISCHARGE NEEDS. PT WAS NOT IN ROOM AT APPROXIMATELY 14710 HOURS. CM TO ATTEMPT ASSESSMENT OF PT AT A LATER TIME. Markie Burnette CASE MANAGEMENT DCP- Discharge Planning Updated by [id number]: Sonia Wyatt on 05/06/18 8:[address] Patient Name: KENNY JONES Admission Status: ER Accout number: [id number] Admission Date: 05-01-2018 : 1965 Admission Diagnosis:TOXIC ENCEPHALOPATHY Attending: HANNAH HOBSON Current LOS: 5 Anticipated DC Date: Planned Disposition: Home Primary Insurance: [facility] [employer] [employer] Discharge Planning Comments: CM met with patient at bedside after obtaining permission. Patient states he was living at home alone. Patient plans to return to his apartment upon discharge. Patient may need rehab before discharge. Patient denies any needs at this time. CM will continue to follow and assist with discharge planning / needs. Slasher Tender: Sonia CHAVEZ - Discharge Planning Initial Assessment Updated by [id number]: Sonia Wyatt on 05/06/18 8:59 pm * Is the patient Alert and Oriented? Yes * How many steps to enter\\exit or inside your home? * PCP Deirdre Rose * Pharmacy [facility] * Preadmission Environment Home Alone * ADLs Independent * Equipment None * List name and contact numbers for known caregivers / representatives who currently or will assist patient after discharge: Bryon Jones [facility] [phone] * Verbal permission to speak to the caregivers and representatives has been obtained from the patient. N/A * Community resources currently utilized None * Additional services required to return to the preadmission environment? No * Can the patient safely return to the preadmission environment? Yes * Has this patient been hospitalized within the prior 30 days at any hospital? Yes External Providers External Provider: [facility] Next Contact Date: 05/26/2018 Service Request Date: Service Type: Resolution: Reviewer: Comments: External Provider: [facility] Next Contact Date: 05/26/2018 Service Request Date: Service Type: Resolution: Reviewer: Comments: Coverage Notice Reviewer: [id number] Lynne Burnette Notice Issued Date-Time: 05/12/2018 13:25 Notice Type: Patient Choice Letter Notice Delivered To: Patient Relationship to Patient: Gin Pole Operator Name: Delivery Method: HAND - Hand Delivered Sagrario Days: Prior Verbal Notification: Recipient Understood Notice: Yes Recipient Signature: Yes Med Rec Note Co-signed by Attending: Coverage Notice Comment: [facility] Last DP export: 05/26/18 7:49 a Patient Name: KENNY JONES Page 14413 at 1049 All edits/amendments must be made on the electronic document DICTATION DATE: 05/26/181048 POST ANESTHESIA ROOM NURSE: SPENCER 05/26/18 104 RPT#: [id number] DC DATE: STATUS: ADM IN [facility] [address] [place] [address] END OF REPORT
--- NOTE | 2018-05-26 10:58 | MORECARE ---
CASE MANAGEMENT DISCHARGE SUMMARY PATIENT: KENNY JONES UNIT: [id number] ADM DATE: 05/01/18 AGE: 52 : 67 SEX: M ROOM/BED: D.3120 AUTHOR: MARGE,DOC PHYSICIAN: REFERRING PHYSICIAN: HANNAH HOBSON MD DATE OF SERVICE: 05/26/18 Discharge Plan Patient Name: KENNY JONES Facility: [facility]:[place] : 1965 Planned Disposition: Penitentiary Facility Anticipated Discharge Date: Discharge Date: Expected LOS: Initial Reviewer: [id number] Initial Review Date: 05/06/2018 Generated: 05/26/18 11:58 am Comments DCP- Discharge Planning Updated by [id number]: Markie Burnette on 05/26/18 9:[address] Patient Name: KENNY JONES Encounter No: [id number] : 1965 Primary Insurance: [facility] [employer] Anticipated DC Date: Planned Disposition: Penitentiary Facility External Planned Provider: [facility] ACCEPTING FACILITY DCP follow-up note: CM REVIEWED CHART, FAXED UPDATE TO [facility] FOR REHAB PLACEMENT REQUEST, . CM FAXED REFERRAL TO [facility] FOR REHAB REQUEST, . CM [facility]ED UPDATE [facility] AT [phone]. CM FAXED REFERRAL TO [facility] AT [phone]. PT HAS BEEN DECLINED AT [facility] AND [facility]. [facility] HAS APPROVED PT FOR REHAB ENTRY FOR UP TO 60 DAYS. PT HAS BEEN ACCEPTED FOR OUTPATIENT DIALYSIS, MWF, 0745AM AT [facility]. CM WAITING ADMISSION DETERMINATIONS FROM [facility], [facility] AND [facility]. Marike Burnette, CASE MANAGEMENT Appended by Markie Burnette on 05/26/2018 10:52 GANG PUNCH OPERATOR: CM SPOKE TO PT IN ROOM, DISCUSSED NEED FOR REHAB, DECLINATIONS SO FAR. PT SIGNED CONSENT FOR ANY PENITENTIARY FOR REHAB IN [place]. CM RECEIVED CALL FROM [facility] WHO DECLINED PT. CM RECEIVED CALL FROM [facility] WHO DECLINED PT. CM RECEIVED CALL FROM SHAKILA BENNETT WHO DECLINED PT. CM RECEIVED CALL FROM [facility] WHO IS EVALUATING FOR REHAB PLACEMENT. PT HAS BEEN DECLINED AT THE [facility], [facility], [facility] AND [facility]. [facility] HAS APPROVED PT FOR REHAB ENTRY FOR UP TO 60 DAYS. PT HAS BEEN ACCEPTED FOR OUTPATIENT DIALYSIS, MWF, 0745AM AT [facility]. CM WAITING ADMISSION DETERMINATIONS FROM [facility], [facility] AND [facility]. DIOR Ocampo DCP- Discharge Planning Updated by [id number]: Jazmine Conroy on 05/24/18 12:[address] Patient Name: KENNY JONES Admission Status: ER Accout number: [id number] Admission Date: 05-01-2018 : 1965 Admission Diagnosis:TOXIC ENCEPHALOPATHY Attending: HANNAH HOBSON Current LOS: 23 Anticipated DC Date: Planned Disposition: Penitentiary Facility Primary Insurance: [facility] [employer] Discharge Planning Comments: CM CALLED AND LEFT MSG WITH [facility] AND FAXED REFERRAL PAPERS. WAITING FOR CALL BACK FOR DETERMINATION. Rent And Housing Investigator: Jazmine Conroy DCP- Discharge Planning Updated by [id number]: Markie Burnette on 05/23/18 7:[address] Patient Name: KENNY JONES Encounter No: [id number] : 1965 Primary Insurance: [facility] [employer] Anticipated DC Date: Planned Disposition: Penitentiary Facility External Planned Provider:[facility], MEDICARE REHAB BED DCP follow-up note: CM FAXED UPDATE TO [facility], , FOR REHAB REQUEST. CM WAITING ADMISSION DETERMINATION FROM [facility] FOR REHAB, INSURANCE AUTHORIZATION FOR REHAB SERVICES FROM PT'S INSURANCE. OUTPATIENT DIALYSIS CLINIC ARRANGEMENT COMPLETED FOR [facility], MWF, 0745AM, START DATE 05-23-18 IF REHAB PLACEMENT IS SECURED. DIOR Ocampo DCP- Discharge Planning Updated by [id number]: Markie Burnette on 05/20/18 1:[address] Patient Name: KENNY JONES Encounter No: [id number] : 1965 Primary Insurance: [facility] [employer] Anticipated DC Date: Planned Disposition: Penitentiary Facility External Planned Provider: [facility], MEDICARE REHAB BED DCP follow-up note: CM SPOKE TO [facility] OF [facility], THEY ARE STILL WAITING ON INSURANCE AUTHORIZATION FROM PT'S INSURANCE COMPANY. CM RECEIVED MESSAGE FROM [facility]YATTA [facility], PT HAS BEEN ACCEPTED FOR OUTPATIENT DIALYSIS, MWF, 0745AM AT [facility]. PT CAN START ON 05-23-18. CM NOTIFIED [facility] OF [facility]. CM WAITING ADMISSION DETERMINATION FROM [facility] FOR REHAB, INSURANCE AUTHORIZATION FOR REHAB SERVICES FROM PT'S INSURANCE. OUTPATIENT DIALYSIS CLINIC ARRANGEMENT COMPLETED FOR [facility], MWF, 0745AM, START DATE 05-23-18 IF REHAB PLACEMENT IS SECURED. Markie Burnette CASE MANAGEMENT DCP- Discharge Planning Updated by [id number]: Markie Burnette on 05/19/18 3:[address] Patient Name: KENNY JONES Encounter No: [id number] : 1965 Primary Insurance: [facility] [employer] Anticipated DC Date: Planned Disposition: Penitentiary Facility External Planned Provider: [facility], MEDICARE REHAB BED DCP follow-up note: [facility] APPROVED FOR PENITENTIARY FACILITY ENTRY FOR 60 DAYS OF REHAB. CM FAXED UPDATE TO [facility] AT [phone]. CM SPOKE TO KENYATTA URENA [facility] WHO WILL CHECK ON OUTPATIENT DIALYSIS CLINIC ACCEPTANCE. CM WAITING ADMISSION DETERMINATION FROM [facility], INSURANCE AUTHORIZATION FOR REHAB SERVICES FROM 'S INSURANCE AND OUTPATIENT DIALYSIS CLINIC ARRANGEMENT BY [facility] COORDINATOR. Markie Burnette CASE MANAGEMENT DCP- Discharge Planning Updated by [id number]: Markie Burnette on 05/16/18 3:[address] Patient Name: KENNY JONES Encounter No: [id number] : 1965 Primary Insurance: [facility] [employer] Anticipated DC Date: Planned Disposition: Penitentiary Facility External Planned Provider: [facility], MEDICARE REHAB BED DCP follow-up note: CM RECEIVED [facility] APPROVAL FOR PENITENTIARY FACILITY ENTRY FOR 60 DAYS. CM FAXED UPDATE AND [facility] APPR[facility] TO [facility] AT [phone]. CM WAITING ADMISSION DETERMINATION FROM [facility] FOR RE[facility], INSURANCE AUTHORIZATION FOR REHAB SERVICES FROM PT'S INSURANCE AND OUTPATIENT DIALYSIS CLINIC ARRANGEMENT BY [facility] PATIENT PATHWAYS COORDINATOR. Markie Burnette CASE MANAGEMENT DCP- Discharge Planning Updated by [id number]: Markie Burnette on 05/13/18 6:[address] Patient Name: KENNY JONES Encounter No: [id number] : 1965 Primary Insurance: [facility] [employer] Anticipated DC Date: Planned Disposition: Penitentiary Facility External Planned Provider: [facility], MEDICARE REHAB BED DCP follow-up note: CM MET WITH PT IN ROOM TO COMPLETE [facility] SCREENING ASSESSMENT. SCREENING FORMS COMPELTED AND SIGNED. CM FAXED TO [facility] AT [phone]. CM WAITING [facility] SCREENING COMPLETION. CM WAITING ADMISSION DETERMINATION FROM [facility] FOR RE[facility], INSURANCE AUTHORIZATION FOR REHAB SERVICES FROM PT'S INSURANCE AND OUTPATIENT DIALYSIS CLINIC ARRANGEMENT BY [facility] PATIENT PATHWAYS COORDINATOR. DIOR Ocampo DCP- Discharge Planning Updated by [id number]: Markie Burnette on 05/12/18 4:[address] Patient Name: KENNY JONES Encounter No: [id number] : 1965 Primary Insurance: [facility] [employer] Anticipated DC Date: Planned Disposition: Penitentiary Facility External Planned Provider: [facility], MEDICARE REHAB BED DCP follow-up note: CM MET WITH PT IN ROOM TO DISCUSS DISCHARGE PLANNING AND NEEDS. PT REPORTS HE CANNOT GO HOME ALONE LIKE THIS AND NEEDS REHAB FIRST. CM DISCUSSED REHAB OPTIONS AND LOCATIONS. PT DOES NOT WANT [facility] CARE AND ASKED FOR [facility] FOR REHAB SERVICES. CHOICE LETTER SIGNED FOR [facility]. CM ADVISED PT THAT KENYATTA CHRISTOPHER OF [facility] WOULD BE IN CONTACT WITH PT REGARDING OUTPATIENT DIALYSIS CLINIC ARRANGEMENTS. PT REPORTS LIVING IN [place] AND HOPES TO BE INDEPENDENT AND RIDING HIS SCOOTER FOR TRANSPORT AFTER REHAB IS COMPLETED. PT REPORTS HIS BROTHER IS ASSISTING WITH CARING FOR PT'S DOG AT HOME AND PAYING PT'S BILLS WITH PT'S CHECK WHILE PT IS IN THE HOSPITAL. PT IS NOT ELIGIBLE FOR FREE TRANSPORT WITH MEDICAID TRANSPORTATION HE IS "QMB" ONLY. CM FAXED REFERRAL TO [facility]IA [facility] AT [phone]. CM WAITING ADMISSION DETERMINATION FROM [facility] FOR REH[facility], INSURANCE AUTHORIZATION FOR REHAB SERVICES FROM PT'S INSURANCE AND OUTPATIENT DIALYSIS CLINIC ARRANGEMENT BY [facility] COORDINATOR. Markie [place], CASE MANAGEMENT DCP- Discharge Planning Updated by [id number]: Markie Burnette on 05/12/18 11:[address] Patient Name: KENNY JONES Encounter No: [id number] : 1965 Primary Insurance: [facility] [employer] Anticipated DC Date: Planned Disposition: Home DCP follow-up note: CM RECEIVED ORDER FOR OUTPATIENT DIALYSIS AND POSSIBLE REHAB PLACEMENT NEEDS. RN CM HOUSE NOTIFED KENYATTA OF [facility] FOR NEW DAILYSIS CLINIC ARRANGEMENT. CM ATTEMPTED TO MEET WITH PT FOR INITIAL ASSESSMENT OF DISCHARGE NEEDS. PT WAS NOT IN ROOM AT APPROXIMATELY 71735 HOURS. CM TO ATTEMPT ASSESSMENT OF PT AT A LATER TIME. Markie Burnette CASE MANAGEMENT DCP- Discharge Planning Updated by [id number]: Sonia Wyatt on 05/06/18 8:[address] Patient Name: KENNY JONES Admission Status: ER Accout number: [id number] Admission Date: 05-01-2018 : 1965 Admission Diagnosis:TOXIC ENCEPHALOPATHY Attending: HANNAH HOBSON Current LOS: 5 Anticipated DC Date: Planned Disposition: Home Primary Insurance: [facility] [employer] Discharge Planning Comments: CM met with patient at bedside after obtaining permission. Patient states he was living at home alone. Patient plans to return to his apartment upon discharge. Patient may need rehab before discharge. Patient denies any needs at this time. CM will continue to follow and assist with discharge planning / needs. Rent And Housing Investigator: Sonia Wyatt DCPIA - Discharge Planning Initial Assessment Updated by [id number]: Sonia Wyatt on 05/06/18 8:59 pm * Is the patient Alert and Oriented? Yes * How many steps to enter\\exit or inside your home? * PCP Deirdre Rose * Pharmacy [facility] * Preadmission Environment Home Alone * ADLs Independent * Equipment None * List name and contact numbers for known caregivers / representatives who currently or will assist patient after discharge: Bryon Jones - Brother - [phone] * Verbal permission to speak to the caregivers and representatives has been obtained from the patient. N/A * Community resources currently utilized None * Additional services required to return to the preadmission environment? No * Can the patient safely return to the preadmission environment? Yes * Has this patient been hospitalized within the prior 30 days at any hospital? Yes Coverage Notice Reviewer: [id number] Lynne Burnette Notice Issued Date-Time: 05/12/2018 13:25 Notice Type: Patient Choice Letter Notice Delivered To: Patient Relationship to Patient: Candy Forming Machine Operator Name: Delivery Method: HAND - Hand Delivered Sagrario Days: Prior Verbal Notification: Recipient Understood Notice: Yes Recipient Signature: Yes Med Rec Note Co-signed by Attending: Coverage Notice Comment: [facility] Reviewer: [id number] Lynne Burnette Notice Issued Date-Time: 05/26/2018 10:10 Notice Type: IM Discharge Notice Notice Delivered To: Patient Relationship to Patient: Candy Forming Machine Operator Name: Delivery Method: HAND - Hand Delivered Sagrario Days: Prior Verbal Notification: Recipient Understood Notice: Yes Recipient Signature: Yes Med Rec Note Co-signed by Attending: Coverage Notice Comment: ANY PENITENTIARY FACILITY IN [place] FOR REHAB ONLY. Last DP export: 05/26/18 9:49 a Patient Name: KENNY JONES Page 47677 at 1058 All edits/amendments must be made on the electronic document DICTATION DATE: 05/26/18 1058 HEAD TURNING MACHINE OPERATOR: SPENCER 05/26/18 1058 RPT#: [id number] DC DATE: STATUS: ADM IN [facility] [address] [place] [address] END OF REPORT
--- NOTE | 2018-05-26 11:00 | NUR ---
PT STATES HE STILL FEELS NAUSEATED. IV ZOPHRAN GIVEN. PT IN PT ROOM. WILL CTM. CL IN REACH BED IN LOW.
[2018-05-26 11:30] VITALS: BP 152/84
--- NOTE | 2018-05-26 11:54 | MORECARE ---
CASE MANAGEMENT DISCHARGE SUMMARY PATIENT: KENNY JONES UNIT: [id number] ADM DATE: 05/01/18 AGE: 52 : 67 SEX: M ROOM/BED: D.4224 AUTHOR: MARGE,DOC PHYSICIAN: REFERRING PHYSICIAN: HANNAH HOBSON MD DATE OF SERVICE: 05/26/18 Discharge Plan Patient Name: KENNY JONES Facility: [facility]:[place] : 1965 Planned Disposition: Jail Facility Anticipated Discharge Date: Discharge Date: Expected LOS: Initial Reviewer: [id number] Initial Review Date: 05/06/2018 Generated: 05/26/18 12:54 pm Comments DCP- Discharge Planning Updated by [id number]: Markie Burnette on 05/26/18 10:[address] Patient Name: KENNY JONES Encounter No: [id number] : 1965 Primary Insurance: [facility] [employer] Anticipated DC Date: Planned Disposition: Jail Facility External Planned Provider: FIRST ACCEPTING FACILITY DCP follow-up note: CM REVIEWED CHART, FAXED UPDATE TO [facility] FOR REHAB PLACEMENT REQUEST, . CM FAXED REFERRAL TO [facility] FOR REHAB REQUEST, . CM [facility] AT [phone]. CM FAXED REFERRAL TO [facility] AT [phone]. PT HAS BEEN DECLINED AT THE [facility] AND [facility]. [place] HAS APPROVED PT FOR REHAB ENTRY FOR UP TO 60 DAYS. PT HAS BEEN ACCEPTED FOR OUTPATIENT DIALYSIS, MWF, 0745AM AT [facility]. CM WAITING ADMISSION DETERMINATIONS FROM [facility], [facility] AND [facility]. Markie Burnette, CASE MANAGEMENT Appended by Markie Burnette on 05/26/2018 10:52 HIMS CLERK: CM SPOKE TO PT IN ROOM, DISCUSSED NEED FOR REHAB, DECLINATIONS SO FAR. PT SIGNED CONSENT FOR ANY LONGTERM FOR REHAB IN [place]. CM RECEIVED CALL FROM [facility] WHO DECLINED PT. CM RECEIVED CALL FROM [facility] WHO DECLINED PT. CM RECEIVED CALL FROM SHAKILA BENNETT WHO DECLINED PT. CM RECEIVED CALL FROM [facility] WHO IS EVALUATING FOR REHAB PLACEMENT. PT HAS BEEN DECLINED AT THE [facility] AND [facility]. [place] HAS APPROVED PT FOR REHAB ENTRY FOR UP TO 60 DAYS. PT HAS BEEN ACCEPTED FOR OUTPATIENT DIALYSIS, MWF, 0745AM AT [facility]. CM WAITING ADMISSION DETERMINATIONS FROM [facility], [facility] AND [facility]. Markie Burnette, CASE MANAGEMENT Appended by Markie Burnette on 05/26/2018 11:53 HIMS CLERK: CM RECEIVED CALL FROM [facility] OF [facility] WHO REQUESTED TODAYS' MAR, ALL NURSES NOTES AND ASKED IF PT HAS CHEST TUBE AND HAD PSYCH EVALUATION FOR SUICIDAL IDEATIONS. CM EXPLAINED PT'S CHEST TUBE HAD BEEN REMOVED AND PT DID NOT COME IN FOR SUICIDAL IDEATIONS, BUT DOES HAVE HISTORY. CM FAXED REQUESTED INFORMATION AND SPOKE TO PT IN ROOM. PT REPORTS HE ALWAYS TAKES HIS MEDICINE AT HOME AND HAS BEEN SOBER FOR 4 YEARS AND MADE A BAD DECISION TO DRINK BEER THAT NIGHT. PT DOES NOT REMEMBER HOW MANY BEERS HE DRANK AND STATES HE SHOULD NOT HAVE BEEN DRINKING ANYWAY, MUCH LESS THAN WITH MEDICINE.. PT IS WILLING FOR REHAB PLACEMENT. PT HAS BEEN DECLINED AT THE [facility] AND [facility]. [place] HAS APPROVED PT FOR REHAB ENTRY FOR UP TO 60 DAYS. PT HAS BEEN ACCEPTED FOR OUTPATIENT DIALYSIS, MWF, 0745AM AT [facility]. CM WAITING ADMISSION DETERMINATIONS FROM [facility], [facility] AND [facility]. Markie Burnette, CASE MANAGEMENT DCP- Discharge Planning Updated by [id number]: Jazmine Conroy on 05/24/18 12:[address] Patient Name: KENNY JONES Admission Status: ER Accout number: [id number] Admission Date: 05-01-2018 : 1965 Admission Diagnosis:TOXIC ENCEPHALOPATHY Attending: HANNAH HOBSON Current LOS: 23 Anticipated DC Date: Planned Disposition: Jail Facility Primary Insurance: [facility] [employer] Discharge Planning Comments: CM CALLED AND LEFT MSG WITH [facility] AND FAXED REFERRAL PAPERS. WAITING FOR CALL BACK FOR DETERMINATION. Music Mixer: Jazmine Conroy DCP- Discharge Planning Updated by [email or web address]: Markie Burnette on 05/23/18 7:[address] Patient Name: KENNY JONES Encounter No: [id number] : 1965 Primary Insurance: [facility] [employer] Anticipated DC Date: Planned Disposition: Jail Facility External Planned Provider:[facility] NURSING AND REHAB, MEDICARE REHAB BED DCP follow-up note: CM FAXED UPDATE TO THE [facility]IA [facility], , FOR REHAB REQUEST. CM WAITING ADMISSION DETERMINATION FROM THE [facility] FOR REHAB, INSURANCE AUTHORIZATION FOR REHAB SERVICES FROM PT'S INSURANCE. OUTPATIENT DIALYSIS CLINIC ARRANGEMENT COMPLETED FOR [facility], MWF, 0745AM, START DATE 05-23-18 IF REHAB PLACEMENT IS SECURED. Markie Burnette CASE MANAGEMENT DCP- Discharge Planning Updated by [id number]: Markie Burnette on 05/20/18 1:[address] Patient Name: KENNY JONES Encounter No: [id number] : 1965 Primary Insurance: [facility] [employer] Anticipated DC Date: Planned Disposition: Jail Facility External Planned Provider: [facility] NURSING AND [facility], MEDICARE REHAB BED DCP follow-up note: CM SPOKE TO RAUL OF THE [facility], THEY ARE STILL WAITING ON INSURANCE AUTHORIZATION FROM PT'S INSURANCE COMPANY. CM RECEIVED MESSAGE FROM KENYATTA OF [facility], PT HAS BEEN ACCEPTED FOR OUTPATIENT DIALYSIS, MWF, 0745AM AT [facility]. PT CAN START ON 05-23-18. CM NOTIFIED [facility] OF THE [facility]. CM WAITING ADMISSION DETERMINATION FROM THE [facility] FOR REHAB, INSURANCE AUTHORIZATION FOR REHAB SERVICES FROM PT'S INSURANCE. OUTPATIENT DIALYSIS CLINIC ARRANGEMENT COMPLETED FOR [facility], MWF, 0745AM, START DATE 05-23-18 IF REHAB PLACEMENT IS SECURED. Markie Burnette, CASE MANAGEMENT DCP- Discharge Planning Updated by [id number]: Markie Burnette on 05/19/18 3:[address] Patient Name: KENNY JONES Encounter No: [id number] : 1965 Primary Insurance: [facility] [employer] Anticipated DC Date: Planned Disposition: Jail Facility External Planned Provider: [facility]URSING AND RE[facility], MEDICARE REHAB BED DCP follow-up note: [facility] FOR LONGTERM FACILITY ENTRY FOR 60 DAYS OF REHAB. CM FAXED UPDATE TO THE [facility] AT [phone]. CM SPOKE TO KENYATTA URENA [facility] WHO WILL CHECK ON OUTPATIENT DIALYSIS CLINIC ACCEPTANCE. CM WAITING ADMISSION DETERMINATION FROM THE [facility] FOR REHAB, INSURANCE AUTHORIZATION FOR REHAB SERVICES FROM PT'S INSURANCE AND OUTPATIENT DIALYSIS CLINIC ARRANGEMENT BY [facility] COORDINATOR. Markie Burnette CASE MANAGEMENT DCP- Discharge Planning Updated by [id number]: Markie Burnette on 05/16/18 3:[address] Patient Name: KENNY JONES Encounter No: [id number] : 1965 Primary Insurance: [facility] [employer] Anticipated DC Date: Planned Disposition: Jail Facility External Planned Provider: [facility]URSING AND RE[facility], MEDICARE REHAB BED DCP follow-up note: CM RECEIVED [facility] APPROVAL FOR LONGTERM FACILITY ENTRY FOR 60 DAYS. CM FAXED UPDATE AND JUANI APPROVAL TO THE [facility] AT [phone]. CM WAITING ADMISSION DETERMINATION FROM THE [facility] FOR REHAB, INSURANCE AUTHORIZATION FOR REHAB SERVICES FROM PT'S INSURANCE AND OUTPATIENT DIALYSIS CLINIC ARRANGEMENT BY [facility] COORDINATOR. Markie Burnette CASE MANAGEMENT DCP- Discharge Planning Updated by [id number]: Markie Burnette on 05/13/18 6:[address] Patient Name: KENNY JONES Encounter No: [id number] : 1965 Primary Insurance: [facility] [employer] Anticipated DC Date: Planned Disposition: Jail Facility External Planned Provider: [facility]URSING AND RE[facility], MEDICARE REHAB BED DCP follow-up note: CM MET WITH PT IN ROOM TO COMPLETE JUANI SCREENING ASSESSMENT. SCREENING FORMS COMPELTED AND SIGNED. CM FAXED TO [facility] AT [phone]. CM WAITING JUANI SCREENING COMPLETION. CM WAITING ADMISSION DETERMINATION FROM THE [facility] FOR REHAB, INSURANCE AUTHORIZATION FOR REHAB SERVICES FROM PT'S INSURANCE AND OUTPATIENT DIALYSIS CLINIC ARRANGEMENT BY [facility] COORDINATOR. Marike Burnette CASE MANAGEMENT DCP- Discharge Planning Updated by [id number]: Markie Burnette on 05/12/18 4:[address] Patient Name: KENNY JONES Encounter No: [id number] : 1965 Primary Insurance: [facility] [employer] Anticipated DC Date: Planned Disposition: Jail Facility External Planned Provider: [facility] NURSING AND REHAB, MEDICARE REHAB BED DCP follow-up note: CM MET WITH PT IN ROOM TO DISCUSS DISCHARGE PLANNING AND NEEDS. PT REPORTS HE CANNOT GO HOME ALONE LIKE THIS AND NEEDS REHAB FIRST. CM DISCUSSED REHAB OPTIONS AND LOCATIONS. PT DOES NOT WANT [facility] AND ASKED FOR THE [facility] FOR REHAB SERVICES. CHOICE LETTER SIGNED FOR THE [facility]. CM ADVISED PT THAT KENYATTA CHRISTOPHER OF [facility] WOULD BE IN CONTACT WITH PT REGARDING OUTPATIENT DIALYSIS CLINIC ARRANGEMENTS. PT REPORTS LIVING IN [place] AND HOPES TO BE INDEPENDENT AND RIDING HIS SCOOTER FOR TRANSPORT AFTER REHAB IS COMPLETED. PT REPORTS HIS BROTHER IS ASSISTING WITH CARING FOR PT'S DOG AT HOME AND PAYING PT'S BILLS WITH PT'S CHECK WHILE PT IS IN THE HOSPITAL. PT IS NOT ELIGIBLE FOR FREE TRANSPORT WITH MEDICAID TRANSPORTATION HE IS "Q[facility]" ONLY. CM FAXED REFERRAL TO THE [facility] AT [phone]. CM WAITING ADMISSION DETERMINATION FROM THE [facility] FOR REHAB, INSURANCE AUTHORIZATION FOR REHAB SERVICES FROM PT'S INSURANCE AND OUTPATIENT DIALYSIS CLINIC ARRANGEMENT BY [facility] COORDINATOR. Markie Burnette, CASE MANAGEMENT DCP- Discharge Planning Updated by [id number]: Markie Burnette on 05/12/18 11:[address] Patient Name: KENNY CATALANB Encounter No: [id number] : 1965 Primary Insurance: [facility] [employer] Anticipated DC Date: Planned Disposition: Home DCP follow-up note: CM RECEIVED ORDER FOR OUTPATIENT DIALYSIS AND POSSIBLE REHAB PLACEMENT NEEDS. RN TODD HOUSE NOTIFED [facility] OF [facility] FOR NEW DAILYSIS CLINIC ARRANGEMENT. CM ATTEMPTED TO MEET WITH PT FOR INITIAL ASSESSMENT OF DISCHARGE NEEDS. PT WAS NOT IN ROOM AT APPROXIMATELY [address] HOURS. CM TO ATTEMPT ASSESSMENT OF PT AT A LATER TIME. Markie Burnette CASE MANAGEMENT DCP- Discharge Planning Updated by [id number]: Sonia Wyatt on 05/06/18 8:[address] Patient Name: KENNY JONES Admission Status: ER Accout number: [id number] Admission Date: 05-01-2018 : 1965 Admission Diagnosis:TOXIC ENCEPHALOPATHY Attending: HANNAH HOBSON Current LOS: 5 Anticipated DC Date: Planned Disposition: Home Primary Insurance: [facility] [employer] Discharge Planning Comments: CM met with patient at bedside after obtaining permission. Patient states he was living at home alone. Patient plans to return to his apartment upon discharge. Patient may need rehab before discharge. Patient denies any needs at this time. CM will continue to follow and assist with discharge planning / needs. Music Mixer: Sonia Wyatt SCOTT - Discharge Planning Initial Assessment Updated by [id number]: Sonia Wyatt on 05/06/18 8:59 pm * Is the patient Alert and Oriented? Yes * How many steps to enter\\exit or inside your home? * PCP Deirdre Rose * Pharmacy [facility] * Preadmission Environment Home Alone * ADLs Independent * Equipment None * List name and contact numbers for known caregivers / representatives who currently or will assist patient after discharge: Bryon Jones - Brother - [phone] * Verbal permission to speak to the caregivers and representatives has been obtained from the patient. N/A * Community resources currently utilized None * Additional services required to return to the preadmission environment? No * Can the patient safely return to the preadmission environment? Yes * Has this patient been hospitalized within the prior 30 days at any hospital? Yes Coverage Notice Reviewer: [id number] Lynne Burnette Notice Issued Date-Time: 05/12/2018 13:25 Notice Type: Patient Choice Letter Notice Delivered To: Patient Relationship to Patient: Keyboard Instrument Repairer Name: Delivery Method: HAND - Hand Delivered [place] Days: Prior Verbal Notification: Recipient Understood Notice: Yes Recipient Signature: Yes Med Rec Note Co-signed by Attending: Coverage Notice Comment: [facility] Reviewer: [id number] Burnette Notice Issued Date-Time: 05/26/2018 10:10 Notice Type: IM Discharge Notice Notice Delivered To: Patient Relationship to Patient: Keyboard Instrument Repairer Name: Delivery Method: HAND - Hand Delivered [place] Days: Prior Verbal Notification: Recipient Understood Notice: Yes Recipient Signature: Yes Med Rec Note Co-signed by Attending: Coverage Notice Comment: ANY LONGTERM FACILITY IN [place] FOR REHAB ONLY. Last DP export: 05/26/18 9:58 a Patient Name: KENNY JONES Page [id number] at 1154 All edits/amendments must be made on the electronic document DICTATION DATE: 05/26/18 1157 CRACKLING PRESS OPERATOR: SPENCER 05/26/18 115 RPT#: [id number] DC DATE: STATUS: ADM IN [facility] [address] [place] [id number] END OF REPORT
--- NOTE | 2018-05-26 13:00 | NUR ---
PT C/O ABDOMINAL PAIN. MIRALAX THAT PT REFUSED THIS AM WAS ADMINISTERED. ASSIST PT ON BED JAY. PO PRN HYDROCORDONE GIVEN. WILL CONTINUE TO MONITOR. CL IN REACH, BED IN LOW.
--- NOTE | 2018-05-26 15:00 | NUR ---
ASSESSED PT ABDOMEN. ACTIVE X4. PT STATES HE STILL FEELS PAIN. CALLED SOPHIE RAGLAND. SHE IS NOT AVAILABLE. NOTIFIED DROWRKIN. HE STATES HE NEEDS TO TAKE TAKE HIS MIRALAX. SINCE PT HAS BEEN REFUSING TO TAKE IT. WILL CTM. CL IN REACH. BED IN LOW.
[2018-05-26 15:29] VITALS: BP 122/86
--- NOTE | 2018-05-26 15:42 | MORECARE ---
CASE MANAGEMENT DISCHARGE SUMMARY PATIENT: KENNY JONES UNIT: [id number] ADM DATE: 05/01/18 AGE: 52 : 67 SEX: M ROOM/BED: D.7161 AUTHOR: MARGE,DOC PHYSICIAN: REFERRING PHYSICIAN: HANNAH HOBSON MD DATE OF SERVICE: 05/26/18 Discharge Plan Patient Name: KENNY JONES Facility: [facility]:[place] : 1965 Planned Disposition: [facility] Facility Anticipated Discharge Date: Discharge Date: Expected LOS: Initial Reviewer: [id number] Initial Review Date: 05/06/2018 Generated: 05/26/18 4:42 pm Comments DCP- Discharge Planning Updated by [id number]: Markie Burnette on 05/26/18 2:[address] Patient Name: KENNY JONES Encounter No: [id number] : 1965 Primary Insurance: [facility] MEDICARE SOLUTIONS Anticipated DC Date: Planned Disposition: [facility] Facility External Planned Provider: FIRST ACCEPTING FACILITY DCP follow-up note: CM REVIEWED CHART, FAXED UPDATE TO [facility] FOR REHAB PLACEMENT REQUEST, . CM FAXED REFERRAL TO [facility] FOR REHAB REQUEST, . CM FAXED UPDATE TO [facility] AT [phone]. CM FAXED REFERRAL TO [facility] AT [phone]. PT HAS BEEN DECLINED AT [facility] AND [facility]. [place] HAS APPROVED PT FOR REHAB ENTRY FOR UP TO 60 DAYS. PT HAS BEEN ACCEPTED FOR OUTPATIENT DIALYSIS, MWF, 0745AM AT [facility]. CM WAITING ADMISSION DETERMINATIONS FROM [facility], [facility] AND [facility]. Markie Burnette, CASE MANAGEMENT Appended by Markie Burnette on 05/26/2018 10:52 OFFSET LITHOGRAPHIC PRESS SETTER: CM SPOKE TO PT IN ROOM, DISCUSSED NEED FOR REHAB, DECLINATIONS SO FAR. PT SIGNED CONSENT FOR ANY PENITENTIARY FOR REHAB IN [place]. CM RECEIVED CALL FROM [facility] WHO DECLINED PT. CM RECEIVED CALL FROM [facility] WHO DECLINED PT. CM RECEIVED CALL FROM SHAKILA BENNETT WHO DECLINED PT. CM RECEIVED CALL FROM [facility] WHO IS EVALUATING FOR REHAB PLACEMENT. PT HAS BEEN DECLINED AT THE [facility] AND [facility]. [facility] HAS APPROVED PT FOR REHAB ENTRY FOR UP TO 60 DAYS. PT HAS BEEN ACCEPTED FOR OUTPATIENT DIALYSIS, MWF, 0745AM AT [facility]. CM WAITING ADMISSION DETERMINATIONS FROM [facility], [facility] AND [facility]. Markie Burnette, CASE MANAGEMENT Appended by Markie Burnette on 05/26/2018 11:53 OFFSET LITHOGRAPHIC PRESS SETTER: CM RECEIVED CALL FROM [facility] OF [facility] WHO REQUESTED TODAYS' MAR, ALL NURSES NOTES AND ASKED IF PT HAS CHEST TUBE AND HAD PSYCH EVALUATION FOR SUICIDAL IDEATIONS. CM EXPLAINED PT'S CHEST TUBE HAD BEEN REMOVED AND PT DID NOT COME IN FOR SUICIDAL IDEATIONS, BUT DOES HAVE HISTORY. CM FAXED REQUESTED INFORMATION AND SPOKE TO PT IN ROOM. PT REPORTS HE ALWAYS TAKES HIS MEDICINE AT HOME AND HAS BEEN SOBER FOR 4 YEARS AND MADE A BAD DECISION TO DRINK BEER THAT NIGHT. PT DOES NOT REMEMBER HOW MANY BEERS HE DRANK AND STATES HE SHOULD NOT HAVE BEEN DRINKING ANYWAY, MUCH LESS THAN WITH MEDICINE.. PT IS WILLING FOR REHAB PLACEMENT. PT HAS BEEN DECLINED AT THE [facility] AND [facility]. [facility] HAS APPROVED PT FOR REHAB ENTRY FOR UP TO 60 DAYS. PT HAS BEEN ACCEPTED FOR OUTPATIENT DIALYSIS, MWF, 0745AM AT [facility]. CM WAITING ADMISSION DETERMINATIONS FROM [facility], [facility] AND [facility]. Markie Burnette, CASE MANAGEMENT Appended by Markie Burnette on 05/26/2018 15:36 OFFSET LITHOGRAPHIC PRESS SETTER: CM RECEIVED CALL FROM SAS[facility] OF [facility] WHO DECLINED PT REPORTING THEY CANNOT MEET HIS NEEDS. PT HAS BEEN DECLINED AT THE [facility] AND [facility]. [facility] HAS APPROVED PT FOR REHAB ENTRY FOR UP TO 60 DAYS. PT HAS BEEN ACCEPTED FOR OUTPATIENT DIALYSIS, MWF, 0745AM AT [facility]. CM WAITING ADMISSION DETERMINATIONS FROM [facility] AND [facility]. Markie Burnette, CASE MANAGEMENT DCP- Discharge Planning Updated by [id number]: Jazmine Conroy on 05/24/18 12:[address] Patient Name: KENNY JONES Admission Status: ER Accout number: [id number] Admission Date: 05-01-2018 : 1965 Admission Diagnosis:TOXIC ENCEPHALOPATHY Attending: HANNAH HOBSON Current LOS: 23 Anticipated DC Date: Planned Disposition: [facility] Facility Primary Insurance: [facility] MEDICARE SOLUTIONS Discharge Planning Comments: CM CALLED AND LEFT MSG WITH [facility] AND FAXED REFERRAL PAPERS. WAITING FOR CALL BACK FOR DETERMINATION. Rail Specialist: Jazmine Conroy DCP- Discharge Planning Updated by [id number]: Markie Burnette on 05/23/18 7:[address] Patient Name: KENNY JONES Encounter No: [id number] : 1965 Primary Insurance: [facility] MEDICARE SOLUTIONS Anticipated DC Date: Planned Disposition: [facility] Facility External Planned Provider:[facility], MEDICARE REHAB BED DCP follow-up note: CM FAXED UPDATE TO [facility] VIA [facility], , FOR REHAB REQUEST. CM WAITING ADMISSION DETERMINATION FROM [facility] FOR REHAB, INSURANCE AUTHORIZATION FOR REHAB SERVICES FROM PT'S INSURANCE. OUTPATIENT DIALYSIS CLINIC ARRANGEMENT COMPLETED FOR [facility], MWF, 0745AM, START DATE 05-23-18 IF REHAB PLACEMENT IS SECURED. Markie Burnette, CASE MANAGEMENT DCP- Discharge Planning Updated by [id number]: Markie Burnette on 05/20/18 1:[address] Patient Name: KENNY JONES Encounter No: [id number] : 1965 Primary Insurance: [facility] MEDICARE SOLUTIONS Anticipated DC Date: Planned Disposition: [facility] Facility External Planned Provider: [facility], MEDICARE REHAB BED DCP follow-up note: CM SPOKE TO [facility] OF [facility], THEY ARE STILL WAITING ON INSURANCE AUTHORIZATION FROM PT'S INSURANCE COMPANY. CM RECEIVED MESSAGE FROM KENYATTA OF [facility], PT HAS BEEN ACCEPTED FOR OUTPATIENT DIALYSIS, MWF, 0745AM AT [facility]. PT CAN START ON 05-23-18. CM NOTIFIED [facility] OF [facility]. CM WAITING ADMISSION DETERMINATION FROM [facility] FOR REHAB, INSURANCE AUTHORIZATION FOR REHAB SERVICES FROM PT'S INSURANCE. OUTPATIENT DIALYSIS CLINIC ARRANGEMENT COMPLETED FOR [facility], MWF, 0745AM, START DATE 05-23-18 IF REHAB PLACEMENT IS SECURED. Markie Burnette CASE MANAGEMENT DCP- Discharge Planning Updated by [id number]: Markie Burnette on 05/19/18 3:[address] Patient Name: KENNY JONES Encounter No: [id number] : 1965 Primary Insurance: [facility] MEDICARE SOLUTIONS Anticipated DC Date: Planned Disposition: [facility]fp Facility External Planned Provider: [facility], MEDICARE REHAB BED DCP follow-up note: [facility] APPROVED FOR PENITENTIARY FACILITY ENTRY FOR 60 DAYS OF REHAB. CM FAXED UPDATE TO [facility] VIA [employer] AT [phone]. CM SPOKE TO KENYATTA OF [facility] WHO WILL CHECK ON OUTPATIENT DIALYSIS CLINIC ACCEPTANCE. CM WAITING ADMISSION DETERMINATION FROM [facility] FOR REHAB, INSURANCE AUTHORIZATION FOR REHAB SERVICES FROM PT'S INSURANCE AND OUTPATIENT DIALYSIS CLINIC ARRANGEMENT BY [facility] COORDINATOR. Markie Burnette CASE MANAGEMENT DCP- Discharge Planning Updated by [id number]: Markie Burnette on 05/16/18 3:[address] Patient Name: KENNY JONES Encounter No: [id number] : 1965 Primary Insurance: [facility] MEDICARE SOLUTIONS Anticipated DC Date: Planned Disposition: [facility] Facility External Planned Provider: [facility], MEDICARE REHAB BED DCP follow-up note: CM RECEIVED [facility] APPROVAL FOR PENITENTIARY FACILITY ENTRY FOR 60 DAYS. CM FAXED UPDATE AND [facility] APPROVAL TO [facility]IA [employer] AT [phone]. CM WAITING ADMISSION DETERMINATION FROM [facility] FOR REHAB, INSURANCE AUTHORIZATION FOR REHAB SERVICES FROM PT'S INSURANCE AND OUTPATIENT DIALYSIS CLINIC ARRANGEMENT BY [facility] COORDINATOR. Markie Burnette CASE MANAGEMENT DCP- Discharge Planning Updated by [id number]: Markie Burnette on 05/13/18 6:[address] Patient Name: KENNY JONES Encounter No: [id number] : 1965 Primary Insurance: [facility] MEDICARE SOLUTIONS Anticipated DC Date: Planned Disposition: [facility] Facility External Planned Provider: [facility], MEDICARE REHAB BED DCP follow-up note: CM MET WITH PT IN ROOM TO COMPLETE [facility] SCREENING ASSESSMENT. SCREENING FORMS COMPELTED AND SIGNED. CM FAXED TO [facility] AT [phone]. CM WAITING [facility] SCREENING COMPLETION. CM WAITING ADMISSION DETERMINATION FROM [facility] FOR REHAB, INSURANCE AUTHORIZATION FOR REHAB SERVICES FROM PT'S INSURANCE AND OUTPATIENT DIALYSIS CLINIC ARRANGEMENT BY [facility] COORDINATOR. DIOR Ocampo DCP- Discharge Planning Updated by [id number]: Markie Burnette on 05/12/18 4:[address] Patient Name: KENNY JONES Encounter No: [id number] : 1965 Primary Insurance: [facility] MEDICARE SOLUTIONS Anticipated DC Date: Planned Disposition: Mcfp Facility External Planned Provider: [facility], MEDICARE REHAB BED DCP follow-up note: CM MET WITH PT IN ROOM TO DISCUSS DISCHARGE PLANNING AND NEEDS. PT REPORTS HE CANNOT GO HOME ALONE LIKE THIS AND NEEDS REHAB FIRST. CM DISCUSSED REHAB OPTIONS AND LOCATIONS. PT DOES NOT WANT [facility] AND ASKED FOR [facility] FOR REHAB SERVICES. CHOICE LETTER SIGNED FOR [facility]. CM ADVISED PT THAT KENYATTA CHRISTOPHER OF [facility] WOULD BE IN CONTACT WITH PT REGARDING OUTPATIENT DIALYSIS CLINIC ARRANGEMENTS. PT REPORTS LIVING IN [place] AND HOPES TO BE INDEPENDENT AND RIDING HIS SCOOTER FOR TRANSPORT AFTER REHAB IS COMPLETED. PT REPORTS HIS BROTHER IS ASSISTING WITH CARING FOR PT'S DOG AT HOME AND PAYING PT'S BILLS WITH PT'S CHECK WHILE PT IS IN THE HOSPITAL. PT IS NOT ELIGIBLE FOR FREE TRANSPORT WITH MEDICAID TRANSPORTATION HE IS "[facility]" ONLY. CM FAXED REFERRAL TO [facility]IA [facility] AT [phone]. CM WAITING ADMISSION DETERMINATION FROM [facility] FOR REHAB, INSURANCE AUTHORIZATION FOR REHAB SERVICES FROM PT'S INSURANCE AND OUTPATIENT DIALYSIS CLINIC ARRANGEMENT BY [facility] COORDINATOR. DIOR Ocampo DCP- Discharge Planning Updated by [id number]: Markie Burnette on 05/12/18 11:[address] Patient Name: KENNY JONES Encounter No: [id number] : 1965 Primary Insurance: [facility] MEDICARE SOLUTIONS Anticipated DC Date: Planned Disposition: Home DCP follow-up note: CM RECEIVED ORDER FOR OUTPATIENT DIALYSIS AND POSSIBLE REHAB PLACEMENT NEEDS. [facility] NOTIFED K[facility]YATTA OF [facility] FOR NEW DAILYSIS CLINIC ARRANGEMENT. CM ATTEMPTED TO MEET WITH PT FOR INITIAL ASSESSMENT OF DISCHARGE NEEDS. PT WAS NOT IN ROOM AT APPROXIMATELY [id number] HOURS. CM TO ATTEMPT ASSESSMENT OF PT AT A LATER TIME. Markie Burnette, CASE MANAGEMENT DCP- Discharge Planning Updated by [id number]: Sonia Wyatt on 05/06/18 8:[address] Patient Name: KENNY JONES Admission Status: ER Accout number: [id number] Admission Date: 05-01-2018 : 1965 Admission Diagnosis:TOXIC ENCEPHALOPATHY Attending: HANNAH HOBSON Current LOS: 5 Anticipated DC Date: Planned Disposition: Home Primary Insurance: [facility] MEDICARE SOLUTIONS Discharge Planning Comments: CM met with patient at bedside after obtaining permission. Patient states he was living at home alone. Patient plans to return to his apartment upon discharge. Patient may need rehab before discharge. Patient denies any needs at this time. CM will continue to follow and assist with discharge planning / needs. Rail Specialist: Sonia Wyatt DCPIA - Discharge Planning Initial Assessment Updated by [id number]: Sonia Edmundo on 05/06/18 8:59 pm * Is the patient Alert and Oriented? Yes * How many steps to enter\\exit or inside your home? * PCP Deirdre Rose * Pharmacy [facility] * Preadmission Environment Home Alone * ADLs Independent * Equipment None * List name and contact numbers for known caregivers / representatives who currently or will assist patient after discharge: Bryon [facility] - [phone] * Verbal permission to speak to the caregivers and representatives has been obtained from the patient. N/A * Community resources currently utilized None * Additional services required to return to the preadmission environment? No * Can the patient safely return to the preadmission environment? Yes * Has this patient been hospitalized within the prior 30 days at any hospital? Yes Coverage Notice Reviewer: [id number] Lynne Burnette Notice Issued Date-Time: 05/12/2018 13:25 Notice Type: Patient Choice Letter Notice Delivered To: Patient Relationship to Patient: Rolloff Driver Name: Delivery Method: HAND - Hand Delivered [place] Days: Prior Verbal Notification: Recipient Understood Notice: Yes Recipient Signature: Yes Med Rec Note Co-signed by Attending: Coverage Notice Comment: [facility] Reviewer: [id number] Lynne Burnette Notice Issued Date-Time: 05/26/2018 10:10 Notice Type: IM Discharge Notice Notice Delivered To: Patient Relationship to Patient: Rolloff Driver Name: Delivery Method: HAND - Hand Delivered [place] Days: Prior Verbal Notification: Recipient Understood Notice: Yes Recipient Signature: Yes Med Rec Note Co-signed by Attending: Coverage Notice Comment: ANY PENITENTIARY FACILITY IN [place] FOR REHAB ONLY. Last DP export: 05/26/18 10:54 a Patient Name: KENNY JONES Page [id number] at 1542 All edits/amendments must be made on the electronic document DICTATION DATE: 05/26/18 154 PRACTICING MD ANESTHESIOLOGIST: SPENCER 05/26/18 154 RPT#: [id number] DC DATE: STATUS: ADM IN [facility] [address] [place] [address] END OF REPORT
--- NOTE | 2018-05-26 16:45 | NUR ---
OT NOTE: PT COMPLETED BED MOB WITH MIN/MOD A. PT COMPLETED SIT TO STAND WITH MOD A. PT COMPLETED EOB SITTING WITH SBA. PT DIZZY SUPINE TO SIT. PT COMPLETED HYGIENE TASK WITH MIN A. THANK YOU, CELESTINA BAEZA
--- NOTE | 2018-05-26 16:48 | NUR ---
OT NOTE: PT COMPLETED GROOMING AND HYGIENE TASK WITH MIN A. PT COMPLETED BUE AROM AXS FOR INCREASED ENDURANCE. THANK YOU, CELESTINA BAEZA
[2018-05-26 20:00] VITALS: BP 150/88
--- NOTE | 2018-05-26 23:00 | NUR ---
REPORT RECIEVED AND ROUNDING COMPLETE. PT LAYING IN BED AWAKE. PT COMPLAINING OF NAUSEA. ASKED IF HE CAN HAVE MEDS. NO OTHER NEEDS AT THIS TIME. CALL LIGHT WITHIN REACH. BED IN LOWEST POSITION.
[2018-05-27] VITALS: BP 137/93
[2018-05-27 04:00] VITALS: BP 150/93
--- NOTE | 2018-05-27 04:21 | NUR ---
MATERIALS COORDINATOR AT BEDSIDE TO OBTAIN VITALS, CALL LIGHT IN REACH. WILL CONTINUE WITH PLAN OF CARE.
[2018-05-27 06:11] LABS: BASOPHILS 0.7 % (0-2); EOSINOPHILS 4.1 % (0-7); HEMATOCRIT 29.2 % (42.0-54.0); HEMOGLOBIN 9.3 g/dL (13.5-17.5); IMMATURE GRANULOCYTES 0.5 % (0-5); LYMPHOCYTES 27.9 % (15-50); MCH 28.8 pg (26.0-34.0); MCHC 31.8 g/dL (31.0-37.0); MCV 90.4 fL (80.0-100.0); MEAN PLATELET VOLUME 9.3 fL (7.4-10.4); MONOCYTES 10.8 % (2-11); PLATELET COUNT 174 10x3/uL (130-400); RBC 3.23 10x6/uL (4.20-6.10); RDW 14.2 % (11.5-14.5); WBC 4.3 10x3/uL (4.8-10.8)
[2018-05-27 06:29] LABS: ANION GAP 16.3 mmol/L (8-16); CALCIUM 8.8 mg/dL (8.5-10.1); CARBON DIOXIDE 27.7 mmol/L (21.0-32.0); CREATININE - SERUM 5.6 mg/dL (0.6-1.3)
--- NOTE | 2018-05-27 09:05 | MORECARE ---
CASE MANAGEMENT DISCHARGE SUMMARY PATIENT: KENNY JONES UNIT: [id number] ADM DATE: 05/01/18 AGE: 52 : 67 SEX: M ROOM/BED: D.6862 AUTHOR: MARGE,DOC PHYSICIAN: REFERRING PHYSICIAN: HANNAH HOBSON MD DATE OF SERVICE: 05/27/18 Discharge Plan Patient Name: KENNY JONES Facility: [facility]:[place] : 1965 Planned Disposition: Alf Facility Anticipated Discharge Date: Discharge Date: Expected LOS: Initial Reviewer: [id number] Initial Review Date: 05/06/2018 Generated: 05/27/18 10:05 am Comments DCP- Discharge Planning Updated by [id number]: Markie Burnette on 05/26/18 2:[address] Patient Name: KENNY JONES Encounter No: [id number] : 1965 Primary Insurance: [facility] [employer] [employer] Anticipated DC Date: Planned Disposition: Alf Facility External Planned Provider: FIRST ACCEPTING FACILITY DCP follow-up note: CM REVIEWED CHART, FAXED UPDATE TO [facility] FOR REHAB PLACEMENT REQUEST, . CM FAXED REFERRAL TO [facility] FOR REHAB REQUEST, . CM FAXED UPDATE TO [facility] AT [phone]. CM FAXED REFERRAL TO [facility] AT [phone]. PT HAS BEEN DECLINED AT THE [facility] AND [facility]. [facility] HAS APPROVED PT FOR REHAB ENTRY FOR UP TO 60 DAYS. PT HAS BEEN ACCEPTED FOR OUTPATIENT DIALYSIS, MWF, 0745AM AT [facility]. CM WAITING ADMISSION DETERMINATIONS FROM [facility], [facility] AND [facility]. Markie Burnette, CASE MANAGEMENT Appended by Markie Burnette on 05/26/2018 10:52 GROUNDMAN: CM SPOKE TO PT IN ROOM, DISCUSSED NEED FOR REHAB, DECLINATIONS SO FAR. PT SIGNED CONSENT FOR ANY NURSING HOME FOR REHAB IN [place]. CM RECEIVED CALL FROM [facility] WHO DECLINED PT. CM RECEIVED CALL FROM [facility] WHO DECLINED PT. CM RECEIVED CALL FROM SHAKILA BENNETT WHO DECLINED PT. CM RECEIVED CALL FROM [facility] WHO IS EVALUATING FOR REHAB PLACEMENT. PT HAS BEEN DECLINED AT THE [facility]. [facility] HAS APPROVED PT FOR REHAB ENTRY FOR UP TO 60 DAYS. PT HAS BEEN ACCEPTED FOR OUTPATIENT DIALYSIS, MWF, 0745AM AT [facility]. CM WAITING ADMISSION DETERMINATIONS FROM [facility], [facility] AND [facility]. Markie Burnette, CASE MANAGEMENT Appended by Markie Burnette on 05/26/2018 11:53 GROUNDMAN: CM RECEIVED CALL FROM [facility] OF [facility] WHO REQUESTED TODAYS' MAR, ALL NURSES NOTES AND ASKED IF PT HAS CHEST TUBE AND HAD PSYCH EVALUATION FOR SUICIDAL IDEATIONS. CM EXPLAINED PT'S CHEST TUBE HAD BEEN REMOVED AND PT DID NOT COME IN FOR SUICIDAL IDEATIONS, BUT DOES HAVE HISTORY. CM FAXED REQUESTED INFORMATION AND SPOKE TO PT IN ROOM. PT REPORTS HE ALWAYS TAKES HIS MEDICINE AT HOME AND HAS BEEN SOBER FOR 4 YEARS AND MADE A BAD DECISION TO DRINK BEER THAT NIGHT. PT DOES NOT REMEMBER HOW MANY BEERS HE DRANK AND STATES HE SHOULD NOT HAVE BEEN DRINKING ANYWAY, MUCH LESS THAN WITH MEDICINE.. PT IS WILLING FOR REHAB PLACEMENT. PT HAS BEEN DECLINED AT THE [facility]. [facility] HAS APPROVED PT FOR REHAB ENTRY FOR UP TO 60 DAYS. PT HAS BEEN ACCEPTED FOR OUTPATIENT DIALYSIS, MWF, 0745AM AT [facility]. CM WAITING ADMISSION DETERMINATIONS FROM [facility], [facility] AND [facility]. Markie Burnette, CASE MANAGEMENT Appended by Markie Burnette on 05/26/2018 15:36 GROUNDMAN: CM RECEIVED CALL FROM SAS[facility] OF [facility] WHO DECLINED PT REPORTING THEY CANNOT MEET HIS NEEDS. PT HAS BEEN DECLINED AT THE [facility] AND [facility]. [facility] HAS APPROVED PT FOR REHAB ENTRY FOR UP TO 60 DAYS. PT HAS BEEN ACCEPTED FOR OUTPATIENT DIALYSIS, MWF, 0745AM AT [facility]. CM WAITING ADMISSION DETERMINATIONS FROM [facility] AND [facility]. Markie Burnette, CASE MANAGEMENT DCP- Discharge Planning Updated by [id number]: Jazmine Conroy on 05/24/18 12:[address] Patient Name: KENNY JONES Admission Status: ER Accout number: [id number] Admission Date: 05-01-2018 : 1965 Admission Diagnosis:TOXIC ENCEPHALOPATHY Attending: HANNAH HOBSON Current LOS: 23 Anticipated DC Date: Planned Disposition: Alf Facility Primary Insurance: [facility] [employer] [employer] Discharge Planning Comments: CM CALLED AND LEFT MSG WITH [facility] AND FAXED REFERRAL PAPERS. WAITING FOR CALL BACK FOR DETERMINATION. Slot Machine Department Floorperson: Jazmine Conroy DCP- Discharge Planning Updated by [id number]: Markie Burnette on 05/23/18 7:[address] Patient Name: KENNY JONES Encounter No: [id number] : 1965 Primary Insurance: [facility] [employer] SOLUTIONS Anticipated DC Date: Planned Disposition: Alf Facility External Planned Provider:[facility], MEDICARE REHAB BED DCP follow-up note: CM FAXED UPDATE TO THE [facility], , FOR REHAB REQUEST. CM WAITING ADMISSION DETERMINATION FROM THE [facility] FOR [facility], INSURANCE AUTHORIZATION FOR REHAB SERVICES FROM PT'S INSURANCE. OUTPATIENT DIALYSIS CLINIC ARRANGEMENT COMPLETED FOR [facility], MWF, 0745AM, START DATE 05-23-18 IF REHAB PLACEMENT IS SECURED. Markie Burnette, CASE MANAGEMENT DCP- Discharge Planning Updated by [id number]: Markie Burnette on 05/20/18 1:[address] Patient Name: KENNY JONES Encounter No: [id number] : 1965 Primary Insurance: [facility] [employer] [employer] Anticipated DC Date: Planned Disposition: Alf Facility External Planned Provider: [facility], MEDICARE REHAB BED DCP follow-up note: CM SPOKE TO [facility] OF [facility], THEY ARE STILL WAITING ON INSURANCE AUTHORIZATION FROM PT'S INSURANCE COMPANY. CM RECEIVED MESSAGE FROM KENYATTA OF [facility], PT HAS BEEN ACCEPTED FOR OUTPATIENT DIALYSIS, MWF, 0745AM AT [facility]. PT CAN START ON 05-23-18. CM NOTIFIED [facility]. CM WAITING ADMISSION DETERMINATION FROM THE [facility] FOR RE[facility], INSURANCE AUTHORIZATION FOR REHAB SERVICES FROM PT'S INSURANCE. OUTPATIENT DIALYSIS CLINIC ARRANGEMENT COMPLETED FOR [facility], MWF, 0745AM, START DATE 05-23-18 IF REHAB PLACEMENT IS SECURED. Markie Burnette CASE MANAGEMENT DCP- Discharge Planning Updated by [id number]: Markie Burnette on 05/19/18 3:[address] Patient Name: KENNY JONES Encounter No: [id number] : 1965 Primary Insurance: [facility] [employer] [employer] Anticipated DC Date: Planned Disposition: Alf Facility External Planned Provider: [facility], MEDICARE REHAB BED DCP follow-up note: [facility] APPROVED FOR NURSING HOME FACILITY ENTRY FOR 60 DAYS OF REHAB. CM FAXED UPDATE TO THE [facility] AT [phone]. CM SPOKE TO KENYATTA OF [facility] WHO WILL CHECK ON OUTPATIENT DIALYSIS CLINIC ACCEPTANCE. CM WAITING ADMISSION DETERMINATION FROM THE [facility], INSURANCE AUTHORIZATION FOR REHAB SERVICES FROM PT'S INSURANCE AND OUTPATIENT DIALYSIS CLINIC ARRANGEMENT BY [facility] COORDINATOR. Markie Burnette CASE MANAGEMENT DCP- Discharge Planning Updated by [id number]: Markie Burnette on 05/16/18 3:[address] Patient Name: KENNY JONES Encounter No: [id number] : 1965 Primary Insurance: [facility] [employer] [employer] Anticipated DC Date: Planned Disposition: Alf Facility External Planned Provider: [facility], MEDICARE REHAB BED DCP follow-up note: CM RECEIVED [facility] APPROVAL FOR NURSING HOME FACILITY ENTRY FOR 60 DAYS. CM FAXED UPDATE AND [facility] APPROVAL TO [facility] AT [phone]. CM WAITING ADMISSION DETERMINATION FROM [facility], INSURANCE AUTHORIZATION FOR REHAB SERVICES FROM PT'S INSURANCE AND OUTPATIENT DIALYSIS CLINIC ARRANGEMENT BY [facility] COORDINATOR. Markie Burnette CASE MANAGEMENT DCP- Discharge Planning Updated by [id number]: Markie Burnette on 05/13/18 6:[address] Patient Name: KENNY JONES Encounter No: [id number] : 1965 Primary Insurance: [facility] [employer] [employer] Anticipated DC Date: Planned Disposition: Alf Facility External Planned Provider: [facility], MEDICARE REHAB BED DCP follow-up note: CM MET WITH PT IN ROOM TO COMPLETE [facility] SCREENING ASSESSMENT. SCREENING FORMS COMPELTED AND SIGNED. CM FAXED TO [facility] AT [phone]. CM WAITING [facility] SCREENING COMPLETION. CM WAITING ADMISSION DETERMINATION FROM [facility], INSURANCE AUTHORIZATION FOR REHAB SERVICES FROM PT'S INSURANCE AND OUTPATIENT DIALYSIS CLINIC ARRANGEMENT BY [facility] COORDINATOR. DIOR Ocampo DCP- Discharge Planning Updated by [id number]: Markie Burnette on 05/12/18 4:[address] Patient Name: KENNY JONES Encounter No: [id number] : 1965 Primary Insurance: [facility] [employer] [employer] Anticipated DC Date: Planned Disposition: Alf Facility External Planned Provider: [facility], MEDICARE REHAB BED DCP follow-up note: CM MET WITH PT IN ROOM TO DISCUSS DISCHARGE PLANNING AND NEEDS. PT REPORTS HE CANNOT GO HOME ALONE LIKE THIS AND NEEDS REHAB FIRST. CM DISCUSSED REHAB OPTIONS AND LOCATIONS. PT DOES NOT WANT GROUP HOME CARE AND ASKED FOR THE [facility] FOR REHAB SERVICES. CHOICE LETTER SIGNED FOR THE [facility]. CM ADVISED PT THAT KENYATTA CHRISTOPHER OF [facility] WOULD BE IN CONTACT WITH PT REGARDING OUTPATIENT DIALYSIS CLINIC ARRANGEMENTS. PT REPORTS LIVING IN [place] AND HOPES TO BE INDEPENDENT AND RIDING HIS SCOOTER FOR TRANSPORT AFTER REHAB IS COMPLETED. PT REPORTS HIS BROTHER IS ASSISTING WITH CARING FOR PT'S DOG AT HOME AND PAYING PT'S BILLS WITH PT'S CHECK WHILE PT IS IN THE HOSPITAL. PT IS NOT ELIGIBLE FOR FREE TRANSPORT WITH MEDICAID TRANSPORTATION HE IS "[facility]" ONLY. CM FAXED REFERRAL TO THE [facility] AT [phone]. CM WAITING ADMISSION DETERMINATION FROM [facility], INSURANCE AUTHORIZATION FOR REHAB SERVICES FROM PT'S INSURANCE AND OUTPATIENT DIALYSIS CLINIC ARRANGEMENT BY [facility] COORDINATOR. DIOR Ocampo DCP- Discharge Planning Updated by [id number]: Markie Burnette on 05/12/18 11:[address] Patient Name: KENNY JONES Encounter No: [id number] : 1965 Primary Insurance: [facility] [employer]UT[employer] Anticipated DC Date: Planned Disposition: Home DCP follow-up note: CM RECEIVED ORDER FOR OUTPATIENT DIALYSIS AND POSSIBLE REHAB PLACEMENT NEEDS. [facility] NOTIFED [facility]TA OF [facility] FOR NEW DAILYSIS CLINIC ARRANGEMENT. CM ATTEMPTED TO MEET WITH PT FOR INITIAL ASSESSMENT OF DISCHARGE NEEDS. PT WAS NOT IN ROOM AT APPROXIMATELY [id number] HOURS. CM TO ATTEMPT ASSESSMENT OF PT AT A LATER TIME. Markie Burnette, CASE MANAGEMENT DCP- Discharge Planning Updated by [id number]: Sonia Wyatt on 05/06/18 8:[address] Patient Name: KENNY JONES Admission Status: ER Accout number: [id number] Admission Date: 05-01-2018 : 1965 Admission Diagnosis:TOXIC ENCEPHALOPATHY Attending: HANNAH HOBSON Current LOS: 5 Anticipated DC Date: Planned Disposition: Home Primary Insurance: [facility] [employer] Discharge Planning Comments: CM met with patient at bedside after obtaining permission. Patient states he was living at home alone. Patient plans to return to his apartment upon discharge. Patient may need rehab before discharge. Patient denies any needs at this time. CM will continue to follow and assist with discharge planning / needs. Slot Machine Department Floorperson: Sonia Wyatt DCPIA - Discharge Planning Initial Assessment Updated by [id number]: Sonia Edmundo on 05/06/18 8:59 pm * Is the patient Alert and Oriented? Yes * How many steps to enter\\exit or inside your home? * PCP Deirdre Rose * Pharmacy [facility] * Preadmission Environment Home Alone * ADLs Independent * Equipment None * List name and contact numbers for known caregivers / representatives who currently or will assist patient after discharge: Bryon Jones - [facility] - [phone] * Verbal permission to speak to the caregivers and representatives has been obtained from the patient. N/A * Community resources currently utilized None * Additional services required to return to the preadmission environment? No * Can the patient safely return to the preadmission environment? Yes * Has this patient been hospitalized within the prior 30 days at any hospital? Yes Coverage Notice Reviewer: [id number] Lynne Burnette Notice Issued Date-Time: 05/12/2018 13:25 Notice Type: Patient Choice Letter Notice Delivered To: Patient Relationship to Patient: Science Teacher Name: Delivery Method: HAND - Hand Delivered [place] Days: Prior Verbal Notification: Recipient Understood Notice: Yes Recipient Signature: Yes Med Rec Note Co-signed by Attending: Coverage Notice Comment: [facility] Reviewer: [id number] Lynne Burnette Notice Issued Date-Time: 05/26/2018 10:10 Notice Type: IM Discharge Notice Notice Delivered To: Patient Relationship to Patient: Science Teacher Name: Delivery Method: HAND - Hand Delivered [place] Days: Prior Verbal Notification: Recipient Understood Notice: Yes Recipient Signature: Yes Med Rec Note Co-signed by Attending: Coverage Notice Comment: ANY NURSING HOME FACILITY IN [place] FOR REHAB ONLY. Last DP export: 05/26/18 2:42 p Patient Name: KENNY JONES Page [phone] at 0905 All edits/amendments must be made on the electronic document DICTATION DATE: 05/27/18904 BUMBOATER: SPENCER 05/27/18904 RPT#: [id number] DC DATE: STATUS: ADM IN [facility] [address] [place] [address] END OF REPORT
[2018-05-27 09:21] VITALS: BP 143/92
--- NOTE | 2018-05-27 09:25 | MORECARE ---
CASE MANAGEMENT DISCHARGE SUMMARY PATIENT: KENNY JONES UNIT: [id number] ADM DATE: 05/01/18 AGE: 52 : 67 SEX: M ROOM/BED: D.2107 AUTHOR: MARGE,DOC PHYSICIAN: REFERRING PHYSICIAN: HANNAH HOBSON MD DATE OF SERVICE: 05/27/18 Discharge Plan Patient Name: KENNY JONES Facility[facility] : 1965 Planned Disposition: [facility]sp Facility Anticipated Discharge Date: Discharge Date: Expected LOS: Initial Reviewer: [id number] Initial Review Date: 05/06/2018 Generated: 05/27/18 10:25 am Comments DCP- Discharge Planning Updated by [id number]: Markie Burnette on 05/27/18 8:[address] Patient Name: KENNY JONES Encounter No: [id number] : 1965 Primary Insurance: [facility] MEDICARE SOLUTIONS Anticipated DC Date: Planned Disposition: Usp Facility External Planned Provider: FIRST ACCEPTING FACILITY, MEDICARE REHAB BED DCP follow-up note: CM RECEIVED CALL FROM [facility], , WHO ASKED CM FOR UPDATE AND THEY WILL DISCUSS PT IN ADMISSIONS STAFF MEETING TODAY FOR REHAB AT [place]. CM FAXED UPDATE REQUESTED WITH LAST 5 DAYS OF NURSES NOTES TO [place] AT [phone]. [facility], [facility] AND [facility] ([place], [place]). [facility] HAS APPROVED PT FOR REHAB ENTRY FOR UP TO 60 DAYS. PT HAS BEEN ACCEPTED FOR OUTPATIENT DIALYSIS, MWF, 0745AM AT [facility]. CM WAITING ADMISSION DETERMINATIONS FROM [facility] AND [facility]. Markie Burnette, CASE MANAGEMENT DCP- Discharge Planning Updated by [id number]: Markie Burnette on 05/26/18 2:[address] Patient Name: KENNY JONES Encounter No: [id number] : 1965 Primary Insurance: [facility] MEDICARE SOLUTIONS Anticipated DC Date: Planned Disposition: [facility]sp Facility External Planned Provider: FIRST ACCEPTING [facility] DCP follow-up note: CM REVIEWED CHART, FAXED UPDATE TO [facility] FOR REHAB PLACEMENT REQUEST, . CM FAXED REFERRAL TO [facility] FOR REHAB REQUEST, . CM FAXED UPDATE TO [facility] AT [phone]. CM FAXED REFERRAL TO [facility] ([place], [place]) AT [phone]. PT HAS BEEN DECLINED AT THE [facility]. [facility] HAS APPROVED PT FOR REHAB ENTRY FOR UP TO 60 DAYS. PT HAS BEEN ACCEPTED FOR OUTPATIENT DIALYSIS, MWF, 0745AM AT [facility]. CM WAITING ADMISSION DETERMINATIONS FROM [facility], [facility], [facility] AND [facility] ([place] [place]). Markie Burnette, CASE MANAGEMENT Appended by Markie Burnette on 05/26/2018 10:52 HATCHERY HELPER: CM SPOKE TO PT IN ROOM, DISCUSSED NEED FOR REHAB, DECLINATIONS SO FAR. PT SIGNED CONSENT FOR ANY ASSISTED FOR REHAB IN [place]. CM RECEIVED CALL FROM [facility] WHO DECLINED PT. CM RECEIVED CALL FROM [facility] WHO DECLINED PT. CM RECEIVED CALL FROM [facility] WHO DECLINED PT. CM RECEIVED CALL FROM [facility] WHO IS EVALUATING FOR REHAB PLACEMENT. PT HAS BEEN DECLINED AT THE [facility], [facility] AND [facility]. [facility] HAS APPROVED PT FOR REHAB ENTRY FOR UP TO 60 DAYS. PT HAS BEEN ACCEPTED FOR OUTPATIENT DIALYSIS, MWF, 0745AM AT [facility]. CM WAITING ADMISSION DETERMINATIONS FROM [facility] ([place] [place]), [facility] AND [facility]. Markie Burnette, CASE MANAGEMENT Appended by Markie Burnette on 05/26/2018 11:53 HATCHERY HELPER: CM RECEIVED CALL FROM [facility] OF [facility] ([place] [place]) WHO REQUESTED TODAYS' MAR, ALL NURSES NOTES AND ASKED IF PT HAS CHEST TUBE AND HAD PSYCH EVALUATION FOR SUICIDAL IDEATIONS. CM EXPLAINED PT'S CHEST TUBE HAD BEEN REMOVED AND PT DID NOT COME IN FOR SUICIDAL IDEATIONS, BUT DOES HAVE HISTORY. CM FAXED REQUESTED INFORMATION AND SPOKE TO PT IN ROOM. PT REPORTS HE ALWAYS TAKES HIS MEDICINE AT HOME AND HAS BEEN SOBER FOR 4 YEARS AND MADE A BAD DECISION TO DRINK BEER THAT NIGHT. PT DOES NOT REMEMBER HOW MANY BEERS HE DRANK AND STATES HE SHOULD NOT HAVE BEEN DRINKING ANYWAY, MUCH LESS THAN WITH MEDICINE.. PT IS WILLING FOR REHAB PLACEMENT. PT HAS BEEN DECLINED AT THE [facility], [facility] AND [facility]. [facility] HAS APPROVED PT FOR REHAB ENTRY FOR UP TO 60 DAYS. PT HAS BEEN ACCEPTED FOR OUTPATIENT DIALYSIS, MWF, 0745AM AT [facility]. CM WAITING ADMISSION DETERMINATIONS FROM [facility] ([place] [place]), [facility] AND [facility]. Markie Burnette, CASE MANAGEMENT Appended by Markie Burnette on 05/26/2018 15:36 HATCHERY HELPER: CM RECEIVED CALL FROM [facility] OF [facility] ([place] [place]) WHO DECLINED PT REPORTING THEY CANNOT MEET HIS NEEDS. PT HAS BEEN DECLINED AT THE [facility] AND [facility] ([place] [place]). [facility] HAS APPROVED PT FOR REHAB ENTRY FOR UP TO 60 DAYS. PT HAS BEEN ACCEPTED FOR OUTPATIENT DIALYSIS, MWF, 0745AM AT [facility]. CM WAITING ADMISSION DETERMINATIONS FROM [facility] AND [facility]. Markie Burnette, CASE MANAGEMENT DCP- Discharge Planning Updated by [id number]: Jazmine Conroy on 05/24/18 12:[address] Patient Name: KENNY JONES Admission Status: ER Accout number: [id number] Admission Date: 05-01-2018 : 1965 Admission Diagnosis:TOXIC ENCEPHALOPATHY Attending: HANNAH HOBSON Current LOS: 23 Anticipated DC Date: Planned Disposition: [facility]sp Facility Primary Insurance: [facility] MEDICARE SOLUTIONS Discharge Planning Comments: CM CALLED AND LEFT MSG WITH [facility] AND FAXED REFERRAL PAPERS. WAITING FOR CALL BACK FOR DETERMINATION. Welder Oxyhydrogen: Jazmine Conroy DCP- Discharge Planning Updated by [id number]: Markie Burnette on 05/23/18 7:[address] Patient Name: KENNY JONES Encounter No: [id number] : 1965 Primary Insurance: [facility] MEDICARE SOLUTIONS Anticipated DC Date: Planned Disposition: [facility]sp Facility External Planned Provider[facility], MEDICARE REHAB BED DCP follow-up note: CM [facility], , FOR REHAB REQUEST. CM WAITING ADMISSION DETERMINATION FROM [facility], INSURANCE AUTHORIZATION FOR REHAB SERVICES FROM PT'S INSURANCE. OUTPATIENT DIALYSIS CLINIC ARRANGEMENT COMPLETED FOR [facility], MWF, 0745AM, START DATE 05-23-18 IF REHAB PLACEMENT IS SECURED. DIOR Ocampo DCP- Discharge Planning Updated by [id number]: Markie Burnette on 05/20/18 1:[address] Patient Name: KENNY JONES Encounter No: [id number] : 1965 Primary Insurance: [facility] MEDICARE SOLUTIONS Anticipated DC Date: Planned Disposition: [facility]sp Facility External Planned Provider: [facility], MEDICARE REHAB BED DCP follow-up note: CM SPOKE TO [facility], THEY ARE STILL WAITING ON INSURANCE AUTHORIZATION FROM PT'S INSURANCE COMPANY. CM RECEIVED MESSAGE FROM [facility], PT HAS BEEN ACCEPTED FOR OUTPATIENT DIALYSIS, MWF, 0745AM AT [facility]. PT CAN START ON 05-23-18. CM NOTIFIED [facility] OF [facility]. CM WAITING ADMISSION DETERMINATION FROM [facility], INSURANCE AUTHORIZATION FOR REHAB SERVICES FROM PT'S INSURANCE. OUTPATIENT DIALYSIS CLINIC ARRANGEMENT COMPLETED FOR [facility], MWF, 0745AM, START DATE 05-23-18 IF REHAB PLACEMENT IS SECURED. Markie Burnette CASE MANAGEMENT DCP- Discharge Planning Updated by [id number]: Markie Burnette on 05/19/18 3:[address] Patient Name: KENNY JONES Encounter No: [id number] : 1965 Primary Insurance: [facility] MEDICARE SOLUTIONS Anticipated DC Date: Planned Disposition: [facility]sp Facility External Planned Provider: [facility], MEDICARE REHAB BED DCP follow-up note: [facility] APPROVED FOR ASSISTED FACILITY ENTRY FOR 60 DAYS OF REHAB. CM FA[facility]ED UPDATE TO [facility] AT [phone]. CM SPOKE TO KENYATTA URE[facility] WHO WILL CHECK ON OUTPATIENT DIALYSIS CLINIC ACCEPTANCE. CM WAITING ADMISSION DETERMINATION FROM [facility], INSURANCE AUTHORIZATION FOR REHAB SERVICES FROM PT'S INSURANCE AND OUTPATIENT DIALYSIS CLINIC ARRANGEMENT BY [facility] COORDINATOR. Markie Burnette CASE MANAGEMENT DCP- Discharge Planning Updated by [id number]: Markie Burnette on 05/16/18 3:[address] Patient Name: KENNY JONES Encounter No: [id number] : 1965 Primary Insurance: [facility] MEDICARE SOLUTIONS Anticipated DC Date: Planned Disposition: [facility]sp Facility External Planned Provider: [facility], MEDICARE REHAB BED DCP follow-up note: CM RECEIVED [employer] APPROVAL FOR ASSISTED FACILITY ENTRY FOR 60 DAYS. CM FAXED UPDATE AND [facility] APPROVAL TO [facility] AT [phone]. CM WAITING ADMISSION DETERMINATION FROM [facility], INSURANCE AUTHORIZATION FOR REHAB SERVICES FROM PT'S INSURANCE AND OUTPATIENT DIALYSIS CLINIC ARRANGEMENT BY [facility] COORDINATOR. Markie Burnette CASE MANAGEMENT DCP- Discharge Planning Updated by [id number]: Markei Burnette on 05/13/18 6:[address] Patient Name: KENNY JONES Encounter No: [id number] : 1965 Primary Insurance: [facility] MEDICARE SOLUTIONS Anticipated DC Date: Planned Disposition: [facility]sp Facility External Planned Provider: [facility], MEDICARE REHAB BED DCP follow-up note: CM MET WITH PT IN ROOM TO COMPLETE [facility] SCREENING ASSESSMENT. SCREENING FORMS COMPELTED AND SIGNED. CM FAXED TO [employer] AT [phone]. CM WAITING [facility] SCREENING COMPLETION. CM WAITING ADMISSION DETERMINATION FROM [facility], INSURANCE AUTHORIZATION FOR REHAB SERVICES FROM PT'S INSURANCE AND OUTPATIENT [facility]IALYSIS CLINIC [facility] COORDINATOR. DIOR Ocampo DCP- Discharge Planning Updated by [id number]: Markie Burnette on 05/12/18 4:[address] Patient Name: KENNY JONES Encounter No: [id number] : 1965 Primary Insurance: [facility] MEDICARE SOLUTIONS Anticipated DC Date: Planned Disposition: [facility]sp Facility External Planned Provider[facility] DCP follow-up note: CM MET WITH PT IN ROOM TO DISCUSS DISCHARGE PLANNING AND NEEDS. PT REPORTS HE CANNOT GO HOME ALONE LIKE THIS AND NEEDS REHAB FIRST. CM DISCUSSED REHAB OPTIONS AND LOCATIONS. PT DOES NOT WANT [facility] AND ASKED FOR [facility]. CHOICE LETTER SIGNED FOR [facility] CM ADVISED PT THAT KENYATTA CHRISTOPHER OF [facility] WOULD BE IN CONTACT WITH PT REGARDING OUTPATIENT DIALYSIS CLINIC ARRANGEMENTS. PT REPORTS LIVING IN [place] AND HOPES TO BE INDEPENDENT AND RIDING HIS SCOOTER FOR TRANSPORT AFTER REHAB IS COMPLETED. PT REPORTS HIS BROTHER IS ASSISTING WITH CARING FOR PT'S DOG AT HOME AND PAYING PT'S BILLS WITH PT'S CHECK WHILE PT IS IN THE HOSPITAL. PT IS NOT ELIGIBLE FOR FREE TRANSPORT WITH MEDICAID TRANSPORTATION HE IS "[facility]" ONLY. CM [facility] [employer] AT [phone]. CM WAITING ADMISSION DETERMINATION FROM [facility], INSURANCE AUTHORIZATION FOR REHAB SERVICES FROM PT'S INSURANCE AND OUTPATIENT DIALYSIS CLINIC ARRANGEMENT BY [facility] COORDINATOR. DIOR Ocampo DCP- Discharge Planning Updated by [id number]: Markie Burnette on 05/12/18 11:[address] Patient Name: KENNY JONES Encounter No: [id number] : 1965 Primary Insurance: [facility] MEDICARE SOLUTIONS Anticipated DC Date: Planned Disposition: Home DCP follow-up note: CM RECEIVED ORDER FOR OUTPATIENT DIALYSIS AND POSSIBLE REHAB PLACEMENT NEEDS. RN TODD HOUSE NOTIFED KENYATTA OF [facility] FOR NEW DAILYSIS CLINIC ARRANGEMENT. CM ATTEMPTED TO MEET WITH PT FOR INITIAL ASSESSMENT OF DISCHARGE NEEDS. PT WAS NOT IN ROOM AT APPROXIMATELY [address] HOURS. CM TO ATTEMPT ASSESSMENT OF PT AT A LATER TIME. DIOR Ocampo DCP- Discharge Planning Updated by [id number]: Sonia Wyatt on 05/06/18 8:[address] Patient Name: KENNY JONES Admission Status: ER Accout number: [id number] Admission Date: 05-01-2018 : 1965 Admission Diagnosis:TOXIC ENCEPHALOPATHY Attending: HANNAH HOBSON Current LOS: 5 Anticipated DC Date: Planned Disposition: Home Primary Insurance: [facility] MEDICARE SOLUTIONS Discharge Planning Comments: CM met with patient at bedside after obtaining permission. Patient states he was living at home alone. Patient plans to return to his apartment upon discharge. Patient may need rehab before discharge. Patient denies any needs at this time. CM will continue to follow and assist with discharge planning / needs. Welder Oxyhydrogen: Sonia Wyatt DCPIA - Discharge Planning Initial Assessment Updated by [id number]: Sonia Wyatt on 05/06/18 8:59 pm * Is the patient Alert and Oriented? Yes * How many steps to enter\\exit or inside your home? * PCP Deirdre Rose * Pharmacy [facility] * Preadmission Environment Home Alone * ADLs Independent * Equipment None * List name and contact numbers for known caregivers / representatives who currently or will assist patient after discharge: Bryon Jones - Brother - [phone] * Verbal permission to speak to the caregivers and representatives has been obtained from the patient. N/A * Community resources currently utilized None * Additional services required to return to the preadmission environment? No * Can the patient safely return to the preadmission environment? Yes * Has this patient been hospitalized within the prior 30 days at any hospital? Yes Coverage Notice Reviewer: [id number] Lynne Burnette Notice Issued Date-Time: 05/12/2018 13:25 Notice Type: Patient Choice Letter Notice Delivered To: Patient Relationship to Patient: Enamel Sprayer Name: Delivery Method: HAND - Hand Delivered [place] Days: Prior Verbal Notification: Recipient Understood Notice: Yes Recipient Signature: Yes Med Rec Note Co-signed by Attending: Coverage Notice Comment: [facility] Reviewer: [id number] Lynne Burnette Notice Issued Date-Time: 05/26/2018 10:10 Notice Type: IM Discharge Notice Notice Delivered To: Patient Relationship to Patient: Enamel Sprayer Name: Delivery Method: HAND - Hand Delivered [place] Days: Prior Verbal Notification: Recipient Understood Notice: Yes Recipient Signature: Yes Med Rec Note Co-signed by Attending: Coverage Notice Comment: ANY ASSISTED FACILITY IN [place] FOR REHAB ONLY. Last DP export: 05/27/18 8:05 a Patient Name: KENNY JONES Page [phone] at 0925 All edits/amendments must be made on the electronic document DICTATION DATE: 05/27/18924 FRAUD REPRESENTATIVE: SPENCER 05/27/18924 RPT#: [id number] DC DATE: STATUS: ADM IN [facility] [address] [place] [address] END OF REPORT
--- NOTE | 2018-05-27 09:30 | NUR ---
AM ROUNDS COMPLETED. SHIFT ASSESSMENT COMPLETED. INTRODUCED MYSELF TO PT PRIMARY RN FOR TODAYS SHIFT. PT IS A&O SITTING UP IN BED SHAKING. PT IS VERY EMOTIONAL AND CRYING STATING "COLE BEEN SICK FOR DAYS AND NOONE WILL HELP" PT COMPLAINS THAT HE NEEDS HIS HOME ANXIETY MEDICATIONS AND HOME MEDS TO STRAIGHTEN HIM OUT. UPON ASKING IF HE HAS TOLD THE DOCTOR HE STATES HE DIDNT THINK ABOUT IT. PAGED PRIMARY AND WILL TRY TO GET HIS HOME MEDICATIONS FOR MOOD AND ANXIETY. DID PROVIDE PT WITH PRN PAIN PILL AND NAUSEA MEDICATION REQUESTED. PT VOICED THANKS AND DENIES ANY FURTHER NEEDS. CL IN REACH. WILL CTM.
--- NOTE | 2018-05-27 10:00 | NUR ---
WAS ABLE TO GET PTS HOME MEDICATIONS RESTARTED. PROVIDED PT WITH HIS ANXIETY MEDICATION AND HE VOICED GREAT APPRECIATION. PT HAS STARTED TO CALM DOWN DENIES ANY CURRENT NEEDS. CL IN REACH. WILL CTM.
--- NOTE | 2018-05-27 10:07 | MORECARE ---
CASE MANAGEMENT DISCHARGE SUMMARY PATIENT: KENNY JONES UNIT: [id number] ADM DATE: 05/01/18 AGE: 52 : 67 SEX: M ROOM/BED: D.8958 AUTHOR: MARGE,DOC PHYSICIAN: REFERRING PHYSICIAN: HANNAH HOBSON MD DATE OF SERVICE: 05/27/18 Discharge Plan Patient Name: KENNY JONES Facility: [facility]:[place] : 1965 Planned Disposition: Alf Facility Anticipated Discharge Date: Discharge Date: Expected LOS: Initial Reviewer: [id number] Initial Review Date: 05/06/2018 Generated: 05/27/18 11:06 am Comments DCP- Discharge Planning Updated by [id number]: Markie Burnette on 05/27/18 9:[address] Patient Name: KENNY JONES Encounter No: [id number] : 1965 Primary Insurance: [facility] MEDICARE SOLUTIONS Anticipated DC Date: Planned Disposition: Alf Facility External Planned Provider: FIRST ACCEPTING FACILITY, MEDICARE REHAB BED DCP follow-up note: CM RECEIVED CALL FROM MARCK OF [facility], , WHO ASKED CM FOR UPDATE AND THEY WILL DISCUSS PT IN ADMISSIONS STAFF MEETING TODAY FOR REHAB AT [facility]. CM FAXED UPDATE REQUESTED WITH LAST 5 DAYS OF NURSES NOTES TO [facility] AT [phone]. PT HAS BEEN DECLINED AT THE [facility], [facility], [facility] AND [facility]. [place] HAS APPROVED PT FOR REHAB ENTRY FOR UP TO 60 DAYS. PT HAS BEEN ACCEPTED FOR OUTPATIENT DIALYSIS, MWF, 0745AM AT [facility]. CM WAITING ADMISSION DETERMINATIONS FROM [facility] AND [facility]. Markie Burnette CASE MANAGEMENT Appended by Markie Burnette on 05/27/2018 10:02 PROCESS SAFETY ENGINEERING TECHNOLOGIST: CM FAXED UPDATED INFORMATION TO [facility] AND [facility]. CM FAXED PSYCHIATRIC CONSULTATION TO [facility] FOR REVIEW. CM WAITING ADMISSION DETERMINATIONS FROM [facility] AND [facility] FOR REHAB SERVICES. DIOR Ocampo DCP- Discharge Planning Updated by [id number]: Markie Burnette on 05/26/18 2:[address] Patient Name: KENNY JONES Encounter No: [id number] : 1965 Primary Insurance: [facility] MEDICARE SOLUTIONS Anticipated DC Date: Planned Disposition: Alf Facility External Planned Provider: FIRST ACCEPTING FACILITY DCP follow-up note: CM REVIEWED CHART, FAXED UPDATE TO [facility] FOR REHAB PLACEMENT REQUEST, . CM FAXED REFERRAL TO [facility] FOR REHAB REQUEST, . CM FAXED UPDATE TO [facility] AT [phone]. CM FAXED REFERRAL TO [facility] AT [phone]. PT HAS BEEN DECLINED AT THE [facility]. [facility] HAS APPROVED PT FOR REHAB ENTRY FOR UP TO 60 DAYS. PT HAS BEEN ACCEPTED FOR OUTPATIENT DIALYSIS, MWF, 0745AM AT [facility]. CM WAITING ADMISSION DETERMINATIONS FROM [facility], [facility], [facility] AND [facility]. Markie Burnette, CASE MANAGEMENT Appended by Markie Burnette on 05/26/2018 10:52 PROCESS SAFETY ENGINEERING TECHNOLOGIST: CM SPOKE TO PT IN ROOM, DISCUSSED NEED FOR REHAB, DECLINATIONS SO FAR. PT SIGNED CONSENT FOR ANY PENITENTIARY FOR REHAB IN [place]. CM RECEIVED CALL FROM SHAILESH URENA [facility] WHO DECLINED PT. CM RECEIVED CALL FROM [facility] WHO DECLINED PT. CM RECEIVED CALL FROM NATI OF [facility] WHO DECLINED PT. CM RECEIVED CALL FROM [facility] WHO IS EVALUATING FOR REHAB PLACEMENT. PT HAS BEEN DECLINED AT THE [facility], [facility] AND [facility]. [facility] HAS APPROVED PT FOR REHAB ENTRY FOR UP TO 60 DAYS. PT HAS BEEN ACCEPTED FOR OUTPATIENT DIALYSIS, MWF, 0745AM AT [facility]. CM WAITING ADMISSION DETERMINATIONS FROM [facility], [facility] AND [facility]. Markie Burnette, CASE MANAGEMENT Appended by Markie Burnette on 05/26/2018 11:53 PROCESS SAFETY ENGINEERING TECHNOLOGIST: CM RECEIVED CALL FROM SASCHA OF [facility] WHO REQUESTED TODAYS' MAR, ALL NURSES NOTES AND ASKED IF PT HAS CHEST TUBE AND HAD PSYCH EVALUATION FOR SUICIDAL IDEATIONS. CM EXPLAINED PT'S CHEST TUBE HAD BEEN REMOVED AND PT DID NOT COME IN FOR SUICIDAL IDEATIONS, BUT DOES HAVE HISTORY. CM FAXED REQUESTED INFORMATION AND SPOKE TO PT IN ROOM. PT REPORTS HE ALWAYS TAKES HIS MEDICINE AT HOME AND HAS BEEN SOBER FOR 4 YEARS AND MADE A BAD DECISION TO DRINK BEER THAT NIGHT. PT DOES NOT REMEMBER HOW MANY BEERS HE DRANK AND STATES HE SHOULD NOT HAVE BEEN DRINKING ANYWAY, MUCH LESS THAN WITH MEDICINE.. PT IS WILLING FOR REHAB PLACEMENT. PT HAS BEEN DECLINED AT THE [facility] AND [facility]. [place] HAS APPROVED PT FOR REHAB ENTRY FOR UP TO 60 DAYS. PT HAS BEEN ACCEPTED FOR OUTPATIENT DIALYSIS, MWF, 0745AM AT [facility]. CM WAITING ADMISSION DETERMINATIONS FROM [facility], [facility] AND [facility]. Markie Burnette, CASE MANAGEMENT Appended by Markie Burnette on 05/26/2018 15:36 PROCESS SAFETY ENGINEERING TECHNOLOGIST: CM RECEIVED CALL FROM SASCHA OF [facility] WHO DECLINED PT REPORTING THEY CANNOT MEET HIS NEEDS. PT HAS BEEN DECLINED AT THE [facility] AND [facility]. [place] HAS APPROVED PT FOR REHAB ENTRY FOR UP TO 60 DAYS. PT HAS BEEN ACCEPTED FOR OUTPATIENT DIALYSIS, MWF, 0745AM AT [facility]. CM WAITING ADMISSION DETERMINATIONS FROM [facility] AND [facility]. Markie Burnette, CASE MANAGEMENT DCP- Discharge Planning Updated by [id number]: Jazmine Conroy on 05/24/18 12:[address] Patient Name: KENNY JONES Admission Status: ER Accout number: [id number] Admission Date: 05-01-2018 : 1965 Admission Diagnosis:TOXIC ENCEPHALOPATHY Attending: HANNAH HOBSON Current LOS: 23 Anticipated DC Date: Planned Disposition: Alf Facility Primary Insurance: [facility] MEDICARE SOLUTIONS Discharge Planning Comments: CM CALLED AND LEFT MSG WITH [facility] AND FAXED REFERRAL PAPERS. WAITING FOR CALL BACK FOR DETERMINATION. Development Administrator: Jazmine Conroy DCP- Discharge Planning Updated by [id number]: Markie Burnette on 05/23/18 7:[address] Patient Name: KENNY JONES Encounter No: [id number] : 1965 Primary Insurance: [facility] MEDICARE SOLUTIONS Anticipated DC Date: Planned Disposition: Alf Facility External Planned Provider:[facility]URSING [facility], MEDICARE REHAB BED DCP follow-up note: CM FAXED UPDATE TO THE [facility]IA [facility], , FOR REHAB REQUEST. CM WAITING ADMISSION DETERMINATION FROM THE [facility] FOR REHAB, INSURANCE AUTHORIZATION FOR REHAB SERVICES FROM PT'S INSURANCE. OUTPATIENT DIALYSIS CLINIC ARRANGEMENT COMPLETED FOR [facility], MWF, 0745AM, START DATE 05-23-18 IF REHAB PLACEMENT IS SECURED. Markie Burnette CASE MANAGEMENT DCP- Discharge Planning Updated by [id number]: Markie Burnette on 05/20/18 1:[address] Patient Name: KENNY JONES Encounter No: [id number] : 1965 Primary Insurance: [facility] MEDICARE SOLUTIONS Anticipated DC Date: Planned Disposition: Alf Facility External Planned Provider: [facility] NURSING [facility] REH[facility], MEDICARE REHAB BED DCP follow-up note: CM SPOKE TO RAUL OF THE [facility], THEY ARE STILL WAITING ON INSURANCE AUTHORIZATION FROM PT'S INSURANCE COMPANY. CM RECEIVED MESSAGE FROM KENYATTA URENA [facility], PT HAS BEEN ACCEPTED FOR OUTPATIENT DIALYSIS, MWF, 0745AM AT [facility]. PT CAN START ON 05-23-18. CM NOTIFIED RAUL OF [facility]. CM WAITING ADMISSION DETERMINATION FROM [facility] FOR REHAB, INSURANCE AUTHORIZATION FOR REHAB SERVICES FROM PT'S INSURANCE. OUTPATIENT DIALYSIS CLINIC ARRANGEMENT COMPLETED FOR [facility], MWF, 0745AM, START DATE 05-23-18 IF REHAB PLACEMENT IS SECURED. DIOR Ocampo DCP- Discharge Planning Updated by [id number]: Markie Burnette on 05/19/18 3:[address] Patient Name: KENNY JONES Encounter No: [id number] : 1965 Primary Insurance: [facility] MEDICARE SOLUTIONS Anticipated DC Date: Planned Disposition: Alf Facility External Planned Provider: [facility] NURSING [facility] REH[facility], MEDICARE REHAB BED DCP follow-up note: [facility] [place] FACILITY ENTRY FOR 60 DAYS OF REHAB. CM FAXED UPDATE TO THE [facility]IA [facility] AT [phone]. CM SPOKE TO KENYATTA URE[facility] WHO WILL CHECK ON OUTPATIENT DIALYSIS CLINIC ACCEPTANCE. CM WAITING ADMISSION DETERMINATION FROM THE [facility] FOR REHAB, INSURANCE AUTHORIZATION FOR REHAB SERVICES FROM PT'S INSURANCE AND OUTPATIENT DIALYSIS CLINIC ARRANGEMENT BY [facility] COORDINATOR. Markie Burnette CASE PATRICIA DCP- Discharge Planning Updated by [id number]: Markie Burnette on 05/16/18 3:[address] Patient Name: KENNY JONES Encounter No: [id number] : 1965 Primary Insurance: [facility] MEDICARE SOLUTIONS Anticipated DC Date: Planned Disposition: Alf Facility External Planned Provider: [facility] RE[facility], MEDICARE REHAB BED DCP follow-up note: CM RECEIVED [employer] APPROVAL FOR PENITENTIARY FACILITY ENTRY FOR 60 DAYS. CM FAXED UPDATE AND [facility] APPROVAL TO [facility]IA [facility] AT [phone]. CM WAITING ADMISSION DETERMINATION FROM THE [facility] FOR REHAB, INSURANCE AUTHORIZATION FOR REHAB SERVICES FROM PT'S INSURANCE AND OUTPATIENT DIALYSIS CLINIC ARRANGEMENT BY [facility] COORDINATOR. Markie Burnette CASE MANAGEMENT DCP- Discharge Planning Updated by [id number]: Markie Burnette on 05/13/18 6:[address] Patient Name: KENNY JONES Encounter No: [id number] : 1965 Primary Insurance: [facility] MEDICARE SOLUTIONS Anticipated DC Date: Planned Disposition: Alf Facility External Planned Provider: [facility] NURSING [facility] REH[facility], MEDICARE REHAB BED DCP follow-up note: CM MET WITH PT IN ROOM TO COMPLETE [facility] SCREENING ASSESSMENT. SCREENING FORMS COMPELTED AND SIGNED. CM FAXED TO [employer] AT [phone]. CM WAITING [facility] SCREENING COMPLETION. CM WAITING ADMISSION DETERMINATION FROM [facility] FOR REHAB, INSURANCE AUTHORIZATION FOR REHAB SERVICES FROM PT'S INSURANCE AND OUTPATIENT DIALYSIS CLINIC ARRANGEMENT BY [facility] COORDINATOR. DIOR Ocampo DCP- Discharge Planning Updated by [id number]: Markie Burnette on 05/12/18 4:[address] Patient Name: KENNY JONES Encounter No: [id number] : 1965 Primary Insurance: [facility] MEDICARE SOLUTIONS Anticipated DC Date: Planned Disposition: Alf Facility External Planned Provider: [facility] NURSING [facility] REH[facility], MEDICARE REHAB BED DCP follow-up note: CM MET WITH PT IN ROOM TO DISCUSS DISCHARGE PLANNING AND NEEDS. PT REPORTS HE CANNOT GO HOME ALONE LIKE THIS AND NEEDS REHAB FIRST. CM DISCUSSED REHAB OPTIONS AND LOCATIONS. PT DOES NOT WANT [facility] AND ASKED FOR [facility] FOR REHAB SERVICES. CHOICE LETTER SIGNED FOR THE [facility]. CM ADVISED PT THAT KENYATTA CHRISTOPHER OF [facility] WOULD BE IN CONTACT WITH PT REGARDING OUTPATIENT DIALYSIS CLINIC ARRANGEMENTS. PT REPORTS LIVING IN [place] AND HOPES TO BE INDEPENDENT AND RIDING HIS SCOOTER FOR TRANSPORT AFTER REHAB IS COMPLETED. PT REPORTS HIS BROTHER IS ASSISTING WITH CARING FOR PT'S DOG AT HOME AND PAYING PT'S BILLS WITH PT'S CHECK WHILE PT IS IN THE HOSPITAL. PT IS NOT ELIGIBLE FOR FREE TRANSPORT WITH MEDICAID TRANSPORTATION HE IS "[facility]" ONLY. CM FAXED REFERRAL TO THE [facility]IA [facility] AT [phone]. CM WAITING ADMISSION DETERMINATION FROM [facility] FOR REHAB, INSURANCE AUTHORIZATION FOR REHAB SERVICES FROM PT'S INSURANCE AND OUTPATIENT DIALYSIS CLINIC ARRANGEMENT BY [facility] COORDINATOR. Markie Burnette, CASE MANAGEMENT DCP- Discharge Planning Updated by [id number]: Markie Burnette on 05/12/18 11:[address] Patient Name: KENNY JONES Encounter No: [id number] : 1965 Primary Insurance: [facility] MEDICARE SOLUTIONS Anticipated DC Date: Planned Disposition: Home DCP follow-up note: CM RECEIVED ORDER FOR OUTPATIENT DIALYSIS AND POSSIBLE REHAB PLACEMENT NEEDS. RN TODD HOUSE NOTIFED KENYATTA OF [facility] FOR NEW DAILYSIS CLINIC ARRANGEMENT. CM ATTEMPTED TO MEET WITH PT FOR INITIAL ASSESSMENT OF DISCHARGE NEEDS. PT WAS NOT IN ROOM AT APPROXIMATELY [id number] HOURS. CM TO ATTEMPT ASSESSMENT OF PT AT A LATER TIME. DIOR Ocampo DCP- Discharge Planning Updated by [id number]: Sonia Wyatt on 05/06/18 8:[address] Patient Name: KENNY JONES Admission Status: ER Accout number: [id number] Admission Date: 05-01-2018 : 1965 Admission Diagnosis:TOXIC ENCEPHALOPATHY Attending: HANNAH HOBSON Current LOS: 5 Anticipated DC Date: Planned Disposition: Home Primary Insurance: [facility] MEDICARE SOLUTIONS Discharge Planning Comments: CM met with patient at bedside after obtaining permission. Patient states he was living at home alone. Patient plans to return to his apartment upon discharge. Patient may need rehab before discharge. Patient denies any needs at this time. CM will continue to follow and assist with discharge planning / needs. Development Administrator: Sonia Wyatt DCPIA - Discharge Planning Initial Assessment Updated by [email or web address]: Sonia Wyatt on 05/06/18 8:59 pm * Is the patient Alert and Oriented? Yes * How many steps to enter\\exit or inside your home? * PCP Deirdre Rose * Pharmacy [facility] * Preadmission Environment Home Alone * ADLs Independent * Equipment None * List name and contact numbers for known caregivers / representatives who currently or will assist patient after discharge: Bryon Jones - Brother - [phone] * Verbal permission to speak to the caregivers and representatives has been obtained from the patient. N/A * Community resources currently utilized None * Additional services required to return to the preadmission environment? No * Can the patient safely return to the preadmission environment? Yes * Has this patient been hospitalized within the prior 30 days at any hospital? Yes Coverage Notice Reviewer: [id number] Lynne Burnette Notice Issued Date-Time: 05/12/2018 13:25 Notice Type: Patient Choice Letter Notice Delivered To: Patient Relationship to Patient: Production Quality Analyst Name: Delivery Method: HAND - Hand Delivered [place] Days: Prior Verbal Notification: Recipient Understood Notice: Yes Recipient Signature: Yes Med Rec Note Co-signed by Attending: Coverage Notice Comment: [facility] FOR REHAB Reviewer: [id number] Lynne Burnette Notice Issued Date-Time: 05/26/2018 10:10 Notice Type: IM Discharge Notice Notice Delivered To: Patient Relationship to Patient: Production Quality Analyst Name: Delivery Method: HAND - Hand Delivered [place] Days: Prior Verbal Notification: Recipient Understood Notice: Yes Recipient Signature: Yes Med Rec Note Co-signed by Attending: Coverage Notice Comment: ANY PENITENTIARY FACILITY IN [place] FOR REHAB ONLY. Last DP export: 05/27/18 8:25 a Patient Name: KENNY JONES Page [phone] at 1007 All edits/amendments must be made on the electronic document DICTATION DATE: 05/27/18 1006 MASTER YACHT: SPENCER 05/27/18 1006 RPT#: [id number] DC DATE: STATUS: ADM IN [facility] [address] [place] [address] END OF REPORT
--- NOTE | 2018-05-27 12:22 | NUR ---
Nutrition follow-up: Diet: Renal PO intake ~40% average of meals Labs reviewed Wt: 200# Pt still c/o nausea with poor po intake at meals Pt now assessed with severe malnutrition of chronic illness R/T cirrhosis, hep c, ETOH abuse AEB ~11% weight loss since Apr 2018 (Admit wt 225# - now 200#) < 75% intake of estimated energy needs for > 1 month. Pt being provided a renal diet with Nepro TID. Pt may benefit from an appetite stimulant; liberalizing diet. If po intake continues to be poor may need to start nutrition support of TF via NGT vs PEG tube. RDN following.
[2018-05-27 12:52] VITALS: BP 136/81
--- NOTE | 2018-05-27 13:49 | NUR ---
THERAPY AT BEDSIDE TRYING TO WORK WITH PT. PT STATES "IM TOO NAUSEATED AND IN PAIN" PROVIDED PT WITH PRN PAIN MEDICATION AND ZOFRAN FOR NAUSEA. PT IS GOING TO TRY TO WORK WITH THERAPY. WILL CTM.
--- NOTE | 2018-05-27 15:49 | NUR ---
PT STILL C/O BEING CONSTIPATED AND WAS ORDERED ONE TIME DOSE MAG CITRATE AND ATTEMPTED TO DRINK IT HOWEVER STATES IT MAKES HIM SICK AND HE CANT DRINK IT. WILL DISCUSS WITH PRIMARY AND SEE ABOUT OTHER OPTIONS. PT VOICED THANKS AND IS RESTING QUIETLY IN BED. NO FURTHER NEEDS. WILL CTM.
--- NOTE | 2018-05-27 16:04 | MORECARE ---
CASE MANAGEMENT DISCHARGE SUMMARY PATIENT: KENNY JONES UNIT: [id number] ADM DATE: 05/01/18 AGE: 52 : 67 SEX: M ROOM/BED: D.1552 AUTHOR: MARGE,DOC PHYSICIAN: REFERRING PHYSICIAN: HANNAH HOBSON MD DATE OF SERVICE: 05/27/18 Discharge Plan Patient Name: KENNY JONES Facility: [facility]:[place] : 1965 Planned Disposition: Assisted Facility Anticipated Discharge Date: Discharge Date: Expected LOS: Initial Reviewer: [id number] Initial Review Date: 05/06/2018 Generated: 05/27/18 5:03 pm Comments DCP- Discharge Planning Updated by [email or web address]: Markie Burnette on 05/27/18 9:[address] Patient Name: KENNY JONES Encounter No: [id number] : 1965 Primary Insurance: [facility] MEDICARE SOLUTIONS Anticipated DC Date: Planned Disposition: Assisted Facility External Planned Provider: FIRST ACCEPTING FACILITY, MEDICARE REHAB BED DCP follow-up note: CM RECEIVED CALL FROM MARCK OF [place], , WHO ASKED CM FOR UPDATE AND THEY WILL DISCUSS PT IN ADMISSIONS STAFF MEETING TODAY FOR REHAB AT [place]. CM FAXED UPDATE REQUESTED WITH LAST 5 DAYS OF NURSES NOTES TO [place] AT [phone]. PT HAS BEEN DECLINED AT [facility], [facility], [facility] AND [facility]. [facility] HAS APPROVED PT FOR REHAB ENTRY FOR UP TO 60 DAYS. PT HAS BEEN ACCEPTED FOR OUTPATIENT DIALYSIS, MWF, 0745AM AT [facility]. CM WAITING ADMISSION DETERMINATIONS FROM [facility] AND [facility]. Markie Burnette CASE MANAGEMENT Appended by Markie Burnette on 05/27/2018 10:02 VIDEO GAME PRODUCER: CM FAXED UPDATED INFORMATION TO [facility], [place] AND [facility]. CM FAXED PSYCHIATRIC CONSULTATION TO [facility] FOR REVIEW. CM WAITING ADMISSION DETERMINATIONS FROM [facility] AND [facility] FOR REHAB SERVICES. DIOR Ocampo DCP- Discharge Planning Updated by [id number]: Markie Burnette on 05/26/18 2:[address] Patient Name: KENNY JONES Encounter No: [id number] : 1965 Primary Insurance: [facility] MEDICARE SOLUTIONS Anticipated DC Date: Planned Disposition: Assisted Facility External Planned Provider: FIRST ACCEPTING FACILITY DCP follow-up note: CM REVIEWED CHART, FAXED UPDATE TO [facility] FOR REHAB PLACEMENT REQUEST, . CM FAXED REFERRAL TO [facility] FOR REHAB REQUEST, . CM FAXED UPDATE TO [facility] AT [phone]. CM FAXED REFERRAL TO [facility] AT [phone]. PT HAS BEEN DECLINED AT THE [facility]. [facility] HAS APPROVED PT FOR REHAB ENTRY FOR UP TO 60 DAYS. PT HAS BEEN ACCEPTED FOR OUTPATIENT DIALYSIS, MWF, 0745AM AT [facility]. CM WAITING ADMISSION DETERMINATIONS FROM [facility], [facility], [facility] AND [facility]. Markie Burnette, CASE MANAGEMENT Appended by Markie Burnette on 05/26/2018 10:52 VIDEO GAME PRODUCER: CM SPOKE TO PT IN ROOM, DISCUSSED NEED FOR REHAB, DECLINATIONS SO FAR. PT SIGNED CONSENT FOR ANY [facility] FOR REHAB IN [place]. CM RECEIVED CALL FROM SHAILESH URENA [facility] WHO DECLINED PT. CM RECEIVED CALL FROM [facility] WHO DECLINED PT. CM RECEIVED CALL FROM NATI OF [facility] WHO DECLINED PT. CM RECEIVED CALL FROM [facility] WHO IS EVALUATING FOR REHAB PLACEMENT. PT HAS BEEN DECLINED AT THE [facility], [facility] AND [facility]. [facility] HAS APPROVED PT FOR REHAB ENTRY FOR UP TO 60 DAYS. PT HAS BEEN ACCEPTED FOR OUTPATIENT DIALYSIS, MWF, 0745AM AT [facility]. CM WAITING ADMISSION DETERMINATIONS FROM [facility], [facility] AND [facility]. Markie Burnette, CASE MANAGEMENT Appended by Markie Burnette on 05/26/2018 11:53 VIDEO GAME PRODUCER: CM RECEIVED CALL FROM [facility] OF [facility] WHO REQUESTED TODAYS' MAR, ALL NURSES NOTES AND ASKED IF PT HAS CHEST TUBE AND HAD PSYCH EVALUATION FOR SUICIDAL IDEATIONS. CM EXPLAINED PT'S CHEST TUBE HAD BEEN REMOVED AND PT DID NOT COME IN FOR SUICIDAL IDEATIONS, BUT DOES HAVE HISTORY. CM FAXED REQUESTED INFORMATION AND SPOKE TO PT IN ROOM. PT REPORTS HE ALWAYS TAKES HIS MEDICINE AT HOME AND HAS BEEN SOBER FOR 4 YEARS AND MADE A BAD DECISION TO DRINK BEER THAT NIGHT. PT DOES NOT REMEMBER HOW MANY BEERS HE DRANK AND STATES HE SHOULD NOT HAVE BEEN DRINKING ANYWAY, MUCH LESS THAN WITH MEDICINE.. PT IS WILLING FOR REHAB PLACEMENT. PT HAS BEEN DECLINED AT THE [facility] AND [facility]. [facility] HAS APPROVED PT FOR REHAB ENTRY FOR UP TO 60 DAYS. PT HAS BEEN ACCEPTED FOR OUTPATIENT DIALYSIS, MWF, 0745AM AT [facility]. CM WAITING ADMISSION DETERMINATIONS FROM [facility], [facility] AND [facility]. Markie Burnette, CASE MANAGEMENT Appended by Markie Burnette on 05/26/2018 15:36 VIDEO GAME PRODUCER: CM RECEIVED CALL FROM SASCHA OF [facility] WHO DECLINED PT REPORTING THEY CANNOT MEET HIS NEEDS. PT HAS BEEN DECLINED AT THE [facility] AND [facility]. [facility] HAS APPROVED PT FOR REHAB ENTRY FOR UP TO 60 DAYS. PT HAS BEEN ACCEPTED FOR OUTPATIENT DIALYSIS, MWF, 0745AM AT [facility]. CM WAITING ADMISSION DETERMINATIONS FROM [facility] AND [facility]. Markie Burnette, CASE MANAGEMENT DCP- Discharge Planning Updated by [id number]: Jazmine Conroy on 05/24/18 12:[address] Patient Name: KENNY JONES Admission Status: ER Accout number: [id number] Admission Date: 05-01-2018 : 1965 Admission Diagnosis:TOXIC ENCEPHALOPATHY Attending: HANNAH HOBSON Current LOS: 23 Anticipated DC Date: Planned Disposition: Assisted Facility Primary Insurance: [facility] MEDICARE SOLUTIONS Discharge Planning Comments: CM CALLED AND LEFT MSG WITH [facility] AND FAXED REFERRAL PAPERS. WAITING FOR CALL BACK FOR DETERMINATION. Cooker Loader: Jazmine Conroy DCP- Discharge Planning Updated by [id number]: Markie Burnette on 05/23/18 7:[address] Patient Name: KENNY JONES Encounter No: [id number] : 1965 Primary Insurance: [facility] MEDICARE SOLUTIONS Anticipated DC Date: Planned Disposition: Assisted Facility External Planned Provider:[facility], MEDICARE REHAB BED DCP follow-up note: CM FAXED UPDATE TO [facility], , FOR REHAB REQUEST. CM WAITING ADMISSION DETERMINATION FROM [facility] FOR REHAB, INSURANCE AUTHORIZATION FOR REHAB SERVICES FROM PT'S INSURANCE. OUTPATIENT DIALYSIS CLINIC ARRANGEMENT COMPLETED FOR [facility], MWF, 0745AM, START DATE 05-23-18 IF REHAB PLACEMENT IS SECURED. Markie Burnette CASE MANAGEMENT DCP- Discharge Planning Updated by [id number]: Markie Burnette on 05/20/18 1:[address] Patient Name: KENNY JONES Encounter No: [id number] : 1965 Primary Insurance: [facility] MEDICARE SOLUTIONS Anticipated DC Date: Planned Disposition: Assisted Facility External Planned Provider: [facility], MEDICARE REHAB BED DCP follow-up note: CM SPOKE TO [facility] OF [facility], THEY ARE STILL WAITING ON INSURANCE AUTHORIZATION FROM PT'S INSURANCE COMPANY. CM RECEIVED MESSAGE FROM [facility]TA U[facility], PT HAS BEEN ACCEPTED FOR OUTPATIENT DIALYSIS, MWF, 0745AM AT [facility]. PT CAN START ON 05-23-18. CM NOTIFIED [facility] OF [facility]. CM WAITING ADMISSION DETERMINATION FROM [facility] FOR REHAB, INSURANCE AUTHORIZATION FOR REHAB SERVICES FROM PT'S INSURANCE. OUTPATIENT DIALYSIS CLINIC ARRANGEMENT COMPLETED FOR [facility], MWF, 0745AM, START DATE 05-23-18 IF REHAB PLACEMENT IS SECURED. DIOR Ocampo DCP- Discharge Planning Updated by [id number]: Markie Burnette on 05/19/18 3:[address] Patient Name: KENNY JONES Encounter No: [id number] : 1965 Primary Insurance: [facility] MEDICARE SOLUTIONS Anticipated DC Date: Planned Disposition: Assisted Facility External Planned Provider: [facility], MEDICARE REHAB BED DCP follow-up note: [facility] APPROVED FOR [facility] FACILITY ENTRY FOR 60 DAYS OF REHAB. CM FAXED UPDATE TO [facility] [employer] AT [phone]. CM SPOKE TO [facility]TA URE[facility] WHO WILL CHECK ON OUTPATIENT DIALYSIS CLINIC ACCEPTANCE. CM WAITING ADMISSION DETERMINATION FROM [facility] FOR REHAB, INSURANCE AUTHORIZATION FOR REHAB SERVICES FROM PT'S INSURANCE AND OUTPATIENT DIALYSIS CLINIC ARRANGEMENT BY [facility] COORDINATOR. Markie Burnette CASE PATRICIA DCP- Discharge Planning Updated by [id number]: Markie Burnette on 05/16/18 3:[address] Patient Name: KENNY JONES Encounter No: [id number] : 1965 Primary Insurance: [facility] MEDICARE SOLUTIONS Anticipated DC Date: Planned Disposition: Assisted Facility External Planned Provider: [facility], MEDICARE REHAB BED DCP follow-up note: CM RECEIVED [employer] [facility] APPROVAL FOR [facility] FACILITY ENTRY FOR 60 DAYS. CM FAXED UPDATE AND [facility] APPROVAL TO [facility] AT [phone]. CM WAITING ADMISSION DETERMINATION FROM [facility] FOR REHAB, INSURANCE AUTHORIZATION FOR REHAB SERVICES FROM PT'S INSURANCE AND OUTPATIENT [facility]IALYSIS CLINIC [facility]ORDIN[facility]. Markie Burnette CASE MANAGEMENT DCP- Discharge Planning Updated by [id number]: Markie Burnette on 05/13/18 6:[address] Patient Name: KENNY JONES Encounter No: [id number] : 1965 Primary Insurance: [facility] MEDICARE SOLUTIONS Anticipated DC Date: Planned Disposition: Assisted Facility External Planned Provider: [facility], MEDICARE REHAB BED DCP follow-up note: CM MET WITH PT IN ROOM TO COMPLETE [facility] SCREENING ASSESSMENT. SCREENING FORMS COMPELTED AND SIGNED. CM FAXED TO [employer] AT [phone]. CM WAITING [facility] SCREENING COMPLETION. CM WAITING ADMISSION DETERMINATION FROM [facility] FOR REHAB, INSURANCE AUTHORIZATION FOR REHAB SERVICES FROM PT'S INSURANCE AND OUTPATIENT DIALYSIS CLINIC [facility]EMENT [facility] COORDIN[facility]. DIOR Ocampo DCP- Discharge Planning Updated by [id number]: Markie Burnette on 05/12/18 4:[address] Patient Name: KENNY JONES Encounter No: [id number] : 1965 Primary Insurance: [facility] MEDICARE SOLUTIONS Anticipated DC Date: Planned Disposition: Assisted Facility External Planned Provider: [facility], MEDICARE REHAB BED DCP follow-up note: CM MET WITH PT IN ROOM TO DISCUSS DISCHARGE PLANNING AND NEEDS. PT REPORTS HE CANNOT GO HOME ALONE LIKE THIS AND NEEDS REHAB FIRST. CM DISCUSSED REHAB OPTIONS AND LOCATIONS. PT DOES NOT WANT HALFWAY CARE AND ASKED FOR [facility] FOR REHAB SERVICES. CHOICE LETTER SIGNED FOR [facility]. CM ADVISED PT THAT KENYATTA CHRISTOPHER OF [facility] WOULD BE IN CONTACT WITH PT REGARDING OUTPATIENT DIALYSIS CLINIC ARRANGEMENTS. PT REPORTS LIVING IN [place] AND HOPES TO BE INDEPENDENT AND RIDING HIS SCOOTER FOR TRANSPORT AFTER REHAB IS COMPLETED. PT REPORTS HIS BROTHER IS ASSISTING WITH CARING FOR PT'S DOG AT HOME AND PAYING PT'S BILLS WITH PT'S CHECK WHILE PT IS IN THE HOSPITAL. PT IS NOT ELIGIBLE FOR FREE TRANSPORT WITH MEDICAID TRANSPORTATION HE IS "[facility]" ONLY. CM FAXED REFERRAL TO [facility] [employer] AT [phone]. CM WAITING ADMISSION DETERMINATION FROM [facility] FOR REHAB, INSURANCE AUTHORIZATION FOR REHAB SERVICES FROM PT'S INSURANCE AND OUTPATIENT DIALYSIS CLINIC ARRANGEMENT BY [facility] COORDIN[facility]. Markie Burnette, CASE MANAGEMENT DCP- Discharge Planning Updated by [id number]: Markie Burnette on 05/12/18 11:[address] Patient Name: KENNY JONES Encounter No: [id number] : 1965 Primary Insurance: [facility] MEDICARE SOLUTIONS Anticipated DC Date: Planned Disposition: Home DCP follow-up note: CM RECEIVED ORDER FOR OUTPATIENT DIALYSIS AND POSSIBLE REHAB PLACEMENT NEEDS. RN TODD HOUSE NOTIFED KENYATTA OF [facility] FOR NEW DAILYSIS CLINIC ARRANGEMENT. CM ATTEMPTED TO MEET WITH PT FOR INITIAL ASSESSMENT OF DISCHARGE NEEDS. PT WAS NOT IN ROOM AT APPROXIMATELY [id number] HOURS. CM TO ATTEMPT ASSESSMENT OF PT AT A LATER TIME. DIOR Ocampo DCP- Discharge Planning Updated by [id number]: Sonia Wyatt on 05/06/18 8:[address] Patient Name: KENNY JONES Admission Status: ER Accout number: [id number] Admission Date: 05-01-2018 : 1965 Admission Diagnosis:TOXIC ENCEPHALOPATHY Attending: HANNAH HOBSON Current LOS: 5 Anticipated DC Date: Planned Disposition: Home Primary Insurance: [facility] MEDICARE SOLUTIONS Discharge Planning Comments: CM met with patient at bedside after obtaining permission. Patient states he was living at home alone. Patient plans to return to his apartment upon discharge. Patient may need rehab before discharge. Patient denies any needs at this time. CM will continue to follow and assist with discharge planning / needs. Cooker Loader: Sonia Waytt DCPIA - Discharge Planning Initial Assessment Updated by [id number]: Soniacrissy Wyatt on 05/06/18 8:59 pm * Is the patient Alert and Oriented? Yes * How many steps to enter\\exit or inside your home? * PCP Deirdre Rose * Pharmacy [facility] * Preadmission Environment Home Alone * ADLs Independent * Equipment None * List name and contact numbers for known caregivers / representatives who currently or will assist patient after discharge: Bryon Jones - Brother - [phone] * Verbal permission to speak to the caregivers and representatives has been obtained from the patient. N/A * Community resources currently utilized None * Additional services required to return to the preadmission environment? No * Can the patient safely return to the preadmission environment? Yes * Has this patient been hospitalized within the prior 30 days at any hospital? Yes Coverage Notice Reviewer: [id number] Lynne Burnette Notice Issued Date-Time: 05/12/2018 13:25 Notice Type: Patient Choice Letter Notice Delivered To: Patient Relationship to Patient: Armored Car Guard Name: Delivery Method: HAND - Hand Delivered [place] Days: Prior Verbal Notification: Recipient Understood Notice: Yes Recipient Signature: Yes Med Rec Note Co-signed by Attending: Coverage Notice Comment: [facility] FOR REHAB Reviewer: [id number] Lynne Burnette Notice Issued Date-Time: 05/26/2018 10:10 Notice Type: IM Discharge Notice Notice Delivered To: Patient Relationship to Patient: Armored Car Guard Name: Delivery Method: HAND - Hand Delivered [place] Days: Prior Verbal Notification: Recipient Understood Notice: Yes Recipient Signature: Yes Med Rec Note Co-signed by Attending: Coverage Notice Comment: ANY [facility] FACILITY IN [place] FOR REHAB ONLY. Last DP export: 05/27/18 9:06 a Patient Name: KENNY JONES Page [id number] at 1604 All edits/amendments must be made on the electronic document DICTATION DATE: 05/27/181602 DIRECTOR OF INSTITUTIONAL GIVING: SPENCER 05/27/181602 RPT#: [id number] DC DATE: STATUS: ADM IN [facility] [address] [place] [address] END OF REPORT
--- NOTE | 2018-05-27 16:16 | MORECARE ---
CASE MANAGEMENT DISCHARGE SUMMARY PATIENT: KENNY JONES UNIT: [id number] ADM DATE: 05/01/18 AGE: 52 : 67 SEX: M ROOM/BED: D.8725 AUTHOR: GEORGE BIRD PHYSICIAN: REFERRING PHYSICIAN: HANNAH HOBSON MD DATE OF SERVICE: 05/27/18 Discharge Plan Patient Name: KENNY JONES Facility: [facility]:[place] : 1965 Planned Disposition: Senior Living Facility Anticipated Discharge Date: Discharge Date: Expected LOS: Initial Reviewer: [id number] Initial Review Date: 05/06/2018 Generated: 05/27/18 5:15 pm Comments DCP- Discharge Planning Updated by [id number]: Markie Burnette on 05/27/18 3:[address] Patient Name: KENNY JONES Encounter No: [id number] : 1965 Primary Insurance: [facility] MEDICARE SOLUTIONS Anticipated DC Date: Planned Disposition: Senior Living Facility External Planned Provider: [facility], MEDICARE REHAB BED DCP follow-up note: CM RECEVIED CALL FROM [facility], THEY WILL ACCEPT PT FOR REHAB AND HAVE INSURANCE AUTHORIZATION TO ACCEPT PT. THEY WILL ACCEPT PT FOR REHAB WHEN READY FOR DISCHARGE. PT NOTIFIED AND IN AGREEMENT WITH REHAB AT [facility]. [facility] HAS APPROVED PT FOR REHAB ENTRY FOR UP TO 60 DAYS. PT HAS BEEN ACCEPTED FOR OUTPATIENT DIALYSIS, MWF, 0745AM AT [facility]. NOTIFCarol YOU OF [facility], , OF DISCHARGE DAY WHEN KNOWN TO ENSURE PT HAS START DATE AT OUTPATIENT DIALYSIS CLINIC. FOR DISCHARGE, FAX DISCHARGE INFORMATION TO [facility] AT [phone], NURSE REPORT TO BE CALLED TO [facility] AT [phone]. [facility] TO ARRANGE VAN TRANSPORTATION FOR DISCHARGE TO REHAB. Markie Burnette DCP- Discharge Planning Updated by [id number]: Markie Burnette on 05/27/18 9:[address] Patient Name: KENNY JONES Encounter No: [id number] : 1965 Primary Insurance: [facility] MEDICARE SOLUTIONS Anticipated DC Date: Planned Disposition: Senior Living Facility External Planned Provider: [facility], MEDICARE REHAB BED DCP follow-up note: CM RECEIVED CALL FROM MARCK OF [facility], , WHO ASKED CM FOR UPDATE AND THEY WILL DISCUSS PT IN ADMISSIONS STAFF MEETING TODAY FOR REHAB AT [facility]. CM FAXED UPDATE REQUESTED WITH LAST 5 DAYS OF NURSES NOTES TO [facility] AT [phone]. PT HAS BEEN DECLINED AT [facility], [facility], [facility] AND [facility]. [facility] HAS APPROVED PT FOR REHAB ENTRY FOR UP TO 60 DAYS. PT HAS BEEN ACCEPTED FOR OUTPATIENT DIALYSIS, MWF, 0745AM AT [facility]. CM WAITING ADMISSION DETERMINATIONS FROM [facility] AND [facility]. Markie Burnette CASE MANAGEMENT Appended by Markie Burnette on 05/27/2018 10:02 DIAL BUFFER: CM FAXED UPDATED INFORMATION TO [facility] AND [facility]. CM FAXED PSYCHIATRIC CONSULTATION TO [facility] FOR REVIEW. CM WAITING ADMISSION DETERMINATIONS FROM [facility] AND [facility] FOR REHAB SERVICES. Markie Burnette CASE MANAGEMENT DCP- Discharge Planning Updated by [id number]: Markie Burnette on 05/26/18 2:[address] Patient Name: KENNY JONES Encounter No: [id number] : 1965 Primary Insurance: [facility] MEDICARE SOLUTIONS Anticipated DC Date: Planned Disposition: Senior Living Facility External Planned Provider: [facility] DCP follow-up note: CM REVIEWED CHART, FAXED UPDATE TO [facility] FOR REHAB PLACEMENT REQUEST, . CM FAXED REFERRAL TO [facility] FOR REHAB REQUEST, . CM FAXED UPDATE TO [facility] AT [phone]. CM FAXED REFERRAL TO [facility] AT [phone]. PT HAS BEEN DECLINED AT THE [facility]. [facility] HAS APPROVED PT FOR REHAB ENTRY FOR UP TO 60 DAYS. PT HAS BEEN ACCEPTED FOR OUTPATIENT DIALYSIS, MWF, 0745AM AT [facility]. CM WAITING ADMISSION DETERMINATIONS FROM [facility], [facility] AND [facility]. Markie Burnette, CASE MANAGEMENT Appended by Markie Burnette on 05/26/2018 10:52 DIAL BUFFER: CM SPOKE TO PT IN ROOM, DISCUSSED NEED FOR REHAB, DECLINATIONS SO FAR. PT SIGNED CONSENT FOR ANY LONG TERM FOR REHAB IN [place]. CM RECEIVED CALL FROM SHAILESH URENA [facility] WHO DECLINED PT. CM RECEIVED CALL FROM [facility] WHO DECLINED PT. CM RECEIVED CALL FROM [facility] WHO DECLINED PT. CM RECEIVED CALL FROM [facility] WHO IS EVALUATING FOR REHAB PLACEMENT. PT HAS BEEN DECLINED AT THE [facility] AND [facility]. [facility] HAS APPROVED PT FOR REHAB ENTRY FOR UP TO 60 DAYS. PT HAS BEEN ACCEPTED FOR OUTPATIENT DIALYSIS, MWF, 0745AM AT [facility]. CM WAITING ADMISSION DETERMINATIONS FROM [facility] AND [facility]. Markie Burnette, CASE MANAGEMENT Appended by Markie Burnette on 05/26/2018 11:53 DIAL BUFFER: CM RECEIVED CALL FROM [facility] WHO REQUESTED TODAYS' MAR, ALL NURSES NOTES AND ASKED IF PT HAS CHEST TUBE AND HAD PSYCH EVALUATION FOR SUICIDAL IDEATIONS. CM EXPLAINED PT'S CHEST TUBE HAD BEEN REMOVED AND PT DID NOT COME IN FOR SUICIDAL IDEATIONS, BUT DOES HAVE HISTORY. CM FAXED REQUESTED INFORMATION AND SPOKE TO PT IN ROOM. PT REPORTS HE ALWAYS TAKES HIS MEDICINE AT HOME AND HAS BEEN SOBER FOR 4 YEARS AND MADE A BAD DECISION TO DRINK BEER THAT NIGHT. PT DOES NOT REMEMBER HOW MANY BEERS HE DRANK AND STATES HE SHOULD NOT HAVE BEEN DRINKING ANYWAY, MUCH LESS THAN WITH MEDICINE.. PT IS WILLING FOR REHAB PLACEMENT. PT HAS BEEN DECLINED AT THE [facility] AND [facility]. [facility] HAS APPROVED PT FOR REHAB ENTRY FOR UP TO 60 DAYS. PT HAS BEEN ACCEPTED FOR OUTPATIENT DIALYSIS, MWF, 0745AM AT [facility]. CM WAITING ADMISSION DETERMINATIONS FROM [facility] AND [facility]. Markie Burnette, CASE MANAGEMENT Appended by Markie Burnette on 05/26/2018 15:36 DIAL BUFFER: CM RECEIVED CALL FROM [facility] WHO DECLINED PT REPORTING THEY CANNOT MEET HIS NEEDS. PT HAS BEEN DECLINED AT THE [facility] AND [facility]. [facility] HAS APPROVED PT FOR REHAB ENTRY FOR UP TO 60 DAYS. PT HAS BEEN ACCEPTED FOR OUTPATIENT DIALYSIS, MWF, 0745AM AT [facility]. CM WAITING ADMISSION DETERMINATIONS FROM [facility] AND [facility]. DIOR Ocampo DCP- Discharge Planning Updated by [id number]: Jazmine Conroy on 05/24/18 12:[address] Patient Name: KENNY JONES Admission Status: ER Accout number: [id number] Admission Date: 05-01-2018 : 1965 Admission Diagnosis:TOXIC ENCEPHALOPATHY Attending: HANNAH HOBSON Current LOS: 23 Anticipated DC Date: Planned Disposition: Senior Living Facility Primary Insurance: [facility] MEDICARE SOLUTIONS Discharge Planning Comments: CM CALLED AND LEFT MSG WITH [facility] AND FAXED REFERRAL PAPERS. WAITING FOR CALL BACK FOR DETERMINATION. Metal Products Viewer: Jazmine Conroy DCP- Discharge Planning Updated by [id number]: Markie Burnette on 05/23/18 7:[address] Patient Name: KENNY JONES Encounter No: [id number] : 1965 Primary Insurance: [facility] MEDICARE SOLUTIONS Anticipated DC Date: Planned Disposition: Senior Living Facility External Planned Provider:[facility], MEDICARE REHAB BED DCP follow-up note: CM FAXED UPDATE TO [facility], , FOR REHAB REQUEST. CM WAITING ADMISSION DETERMINATION FROM [facility] FOR REHAB, INSURANCE AUTHORIZATION FOR REHAB SERVICES FROM PT'S INSURANCE. OUTPATIENT DIALYSIS CLINIC ARRANGEMENT COMPLETED FOR [facility], MWF, 0745AM, START DATE 05-23-18 IF REHAB PLACEMENT IS SECURED. DIOR Ocampo DCP- Discharge Planning Updated by [id number]: Markie Burnette on 05/20/18 1:[address] Patient Name: KENNY JONES Encounter No: [id number] : 1965 Primary Insurance: [facility] MEDICARE SOLUTIONS Anticipated DC Date: Planned Disposition: Senior Living Facility External Planned Provider: [facility], MEDICARE REHAB BED DCP follow-up note: CM SPOKE TO [facility] OF [facility], THEY ARE STILL WAITING ON INSURANCE AUTHORIZATION FROM PT'S INSURANCE COMPANY. CM RECEIVED MESSAGE FROM KENYATTA OF [facility], PT HAS BEEN ACCEPTED FOR OUTPATIENT DIALYSIS, MWF, 0745AM AT [facility]. PT CAN START ON 05-23-18. CM NOTIFIED [facility] OF [facility]. CM WAITING ADMISSION DETERMINATION FROM [facility] FOR REHAB, INSURANCE AUTHORIZATION FOR REHAB SERVICES FROM PT'S INSURANCE. OUTPATIENT DIALYSIS CLINIC ARRANGEMENT COMPLETED FOR [facility], MWF, 0745AM, START DATE 05-23-18 IF REHAB PLACEMENT IS SECURED. Markie Burnette CASE MANAGEMENT DCP- Discharge Planning Updated by [id number]: Markie Burnette on 05/19/18 3:[address] Patient Name: KENNY JONES Encounter No: [id number] : 1965 Primary Insurance: [facility] MEDICARE SOLUTIONS Anticipated DC Date: Planned Disposition: Senior Living Facility External Planned Provider: [facility], MEDICARE REHAB BED DCP follow-up note: [facility] APPROVED FOR LONG TERM FACILITY ENTRY FOR 60 DAYS OF REHAB. CM FAXED UPDATE TO [facility] [employer] AT [phone]. CM SPOKE TO KENYATTA OF [facility] WHO WILL CHECK ON OUTPATIENT DIALYSIS CLINIC ACCEPTANCE. CM WAITING ADMISSION DETERMINATION FROM [facility] FOR REHAB, INSURANCE AUTHORIZATION FOR REHAB SERVICES FROM PT'S INSURANCE AND OUTPATIENT DIALYSIS CLINIC ARRANGEMENT BY [facility] COORDINATOR. Markie Burnette CASE PTARICIA DCP- Discharge Planning Updated by [id number]: Markie Burnette on 05/16/18 3:[address] Patient Name: KENNY CATALANB Encounter No: [id number] : 1965 Primary Insurance: [facility] MEDICARE SOLUTIONS Anticipated DC Date: Planned Disposition: Senior Living Facility External Planned Provider: [facility], MEDICARE REHAB BED DCP follow-up note: CM RECEIVED [facility] APPROVAL FOR LONG TERM FACILITY ENTRY FOR 60 DAYS. CM FAXED UPDATE AND [facility] APPROVAL TO [facility] [employer] AT [phone]. CM WAITING ADMISSION DETERMINATION FROM [facility] FOR REHAB, INSURANCE AUTHORIZATION FOR REHAB SERVICES FROM PT'S INSURANCE AND OUTPATIENT DIALYSIS CLINIC ARRANGEMENT BY [facility] COORDINATOR. Markie Burnette CASE MANAGEMENT DCP- Discharge Planning Updated by [id number]: Markie Burnette on 05/13/18 6:[address] Patient Name: KENNY CATALANB Encounter No: [id number] : 1965 Primary Insurance: [facility] MEDIC[facility] SOLUTIONS Anticipated DC Date: Planned Disposition: Senior Living Facility External Planned Provider: [facility], MEDICARE REHAB BED DCP follow-up note: CM MET WITH PT IN ROOM TO COMPLETE [facility] SCREENING ASSESSMENT. SCREENING FORMS COMPELTED AND SIGNED. CM FAXED TO [facility] AT [phone]. CM WAITING [facility] SCREENING COMPLETION. CM WAITING ADMISSION DETERMINATION FROM [facility] FOR REHAB, INSURANCE AUTHORIZATION FOR REHAB SERVICES FROM PT'S INSURANCE AND OUTPATIENT DIALYSIS CLINIC ARRANGEMENT BY [facility] COORDINATOR. Markie Burnette CASE MANAGEMENT DCP- Discharge Planning Updated by [id number]: Markie Burnette on 05/12/18 4:[address] Patient Name: KENNY CATALANB Encounter No: [id number] : 1965 Primary Insurance: [facility] MEDICARE SOLUTIONS Anticipated DC Date: Planned Disposition: Senior Living Facility External Planned Provider: [facility], MEDICARE REHAB BED DCP follow-up note: CM MET WITH PT IN ROOM TO DISCUSS DISCHARGE PLANNING AND NEEDS. PT REPORTS HE CANNOT GO HOME ALONE LIKE THIS AND NEEDS REHAB FIRST. CM DISCUSSED REHAB OPTIONS AND LOCATIONS. PT DOES NOT WANT ENVIRONMENTAL AIDE CARE AND ASKED FOR [facility] FOR REHAB SERVICES. CHOICE LETTER SIGNED FOR [facility]. CM ADVISED PT THAT KENYATTA CHRISTOPHER OF [facility] WOULD BE IN CONTACT WITH PT REGARDING OUTPATIENT DIALYSIS CLINIC ARRANGEMENTS. PT REPORTS LIVING IN [place] AND HOPES TO BE INDEPENDENT AND RIDING HIS SCOOTER FOR TRANSPORT AFTER REHAB IS COMPLETED. PT REPORTS HIS BROTHER IS ASSISTING WITH CARING FOR PT'S DOG AT HOME AND PAYING PT'S BILLS WITH PT'S CHECK WHILE PT IS IN THE HOSPITAL. PT IS NOT ELIGIBLE FOR FREE TRANSPORT WITH MEDICAID TRANSPORTATION HE IS "Q[facility]" ONLY. CM FAXED REFERRAL TO [facility] [employer] AT [phone]. CM WAITING ADMISSION DETERMINATION FROM [facility] FOR REHAB, INSURANCE AUTHORIZATION FOR REHAB SERVICES FROM PT'S INSURANCE AND OUTPATIENT DIALYSIS CLINIC ARRANGEMENT BY [facility] COORDINATOR. Markie Burnette CASE MANAGEMENT DCP- Discharge Planning Updated by [id number]: Markie Burnette on 05/12/18 11:[address] Patient Name: KENNY CATALANB Encounter No: [id number] : 1965 Primary Insurance: [facility] MEDICARE SOLUTIONS Anticipated DC Date: Planned Disposition: Home DCP follow-up note: CM RECEIVED ORDER FOR OUTPATIENT DIALYSIS AND POSSIBLE REHAB PLACEMENT NEEDS. RN CM HOUSE NOTIFED K[facility]YATTA OF [facility]. CM ATTEMPTED TO MEET WITH PT FOR INITIAL ASSESSMENT OF DISCHARGE NEEDS. PT WAS NOT IN ROOM AT APPROXIMATELY [id number] HOURS. CM TO ATTEMPT ASSESSMENT OF PT AT A LATER TIME. Markie Burnette, CASE MANAGEMENT DCP- Discharge Planning Updated by [id number]: Sonia Wyatt on 05/06/18 8:[address] Patient Name: KENNY JONES Admission Status: ER Accout number: [id number] Admission Date: 05-01-2018 : 1965 Admission Diagnosis:TOXIC ENCEPHALOPATHY Attending: HANNAH HOBSON Current LOS: 5 Anticipated DC Date: Planned Disposition: Home Primary Insurance: [facility] MEDICARE SOLUTIONS Discharge Planning Comments: CM met with patient at bedside after obtaining permission. Patient states he was living at home alone. Patient plans to return to his apartment upon discharge. Patient may need rehab before discharge. Patient denies any needs at this time. CM will continue to follow and assist with discharge planning / needs. Metal Products Viewer: Sonia Wyatt DCPIA - Discharge Planning Initial Assessment Updated by [id number]: Sonia Wyatt on 05/06/18 8:59 pm * Is the patient Alert and Oriented? Yes * How many steps to enter\\exit or inside your home? * PCP Deirdre Rose * Pharmacy [facility] * Preadmission Environment Home Alone * ADLs Independent * Equipment None * List name and contact numbers for known caregivers / representatives who currently or will assist patient after discharge: Bryon Jones - Brother - [phone] * Verbal permission to speak to the caregivers and representatives has been obtained from the patient. N/A * Community resources currently utilized None * Additional services required to return to the preadmission environment? No * Can the patient safely return to the preadmission environment? Yes * Has this patient been hospitalized within the prior 30 days at any hospital? Yes Coverage Notice Reviewer: [id number] - Markie Burnette Notice Issued Date-Time: 05/12/2018 13:25 Notice Type: Patient Choice Letter Notice Delivered To: Patient Relationship to Patient: Harvest Worker Field Crop Name: Delivery Method: HAND - Hand Delivered [place] Days: Prior Verbal Notification: Recipient Understood Notice: Yes Recipient Signature: Yes Med Rec Note Co-signed by Attending: Coverage Notice Comment: [facility] Reviewer: [id number] Lynne Burnette Notice Issued Date-Time: 05/26/2018 10:10 Notice Type: IM Discharge Notice Notice Delivered To: Patient Relationship to Patient: Harvest Worker Field Crop Name: Delivery Method: HAND - Hand Delivered [place] Days: Prior Verbal Notification: Recipient Understood Notice: Yes Recipient Signature: Yes Med Rec Note Co-signed by Attending: Coverage Notice Comment: ANY LONG TERM FACILITY IN [place] FOR REHAB ONLY. Last DP export: 05/27/18 3:04 p Patient Name: KENNY JONES Page [id number] at 1616 All edits/amendments must be made on the electronic document DICTATION DATE: 05/27/181614 SOCIAL WORK PROFESSOR: SPENCER 05/27/181614 RPT#: [id number] DC DATE: STATUS: ADM IN [facility] [address] [place] [address] END OF REPORT
--- NOTE | 2018-05-27 18:28 | NUR ---
PT STILL C/O NOT BEING ABLE TO HAVE A BM AND NAUSEA AND STATES HE CANT KEEP ANYTHING DOWN BUT HE HAS BEEN DRINKING PLENTY OF SPRITES ALL DAY AND HAS NO ISSUES. PRIMARY ARE AWARE AND WILL JUST CPOC AND SEE IF HE WILL GET OOB TO PRODUCE BOWEL MOVEMENT AND BE MORE COMFORTABLE.
--- NOTE | 2018-05-27 19:15 | NUR ---
PT FINALLY HAD A BOWEL MOVEMENT BUT REFUSED TO GET UP TO BEDSIDE COMMODE. CLEANED HIM UP AND HE VOICED THANKS AND STATES HE FEELS BETTER. REMOVED THE REMAINING SUTURES FROM R.THIGH BOTH INCISIONS SEEM TO BE HEALING WELL. NO DRAINAGE OR S/S OF REDDNESS NOTED. APPLIED STERISTRIPS AND LEFT OPEN TO AIR. PT VOICED THANKS AND DENIES ANY FURTHER NEEDS AT THIS TIME. CL IN REACH, BED IN LOWEST, SIDE RAILS X2. WILL CTM.
--- NOTE | 2018-05-27 19:45 | NUR ---
PT ALERT AND ORIENTED SITTING UP IN BED. RESPIRATIONS EVEN AND UNLABORED. PT DENIES ANY NEEDS AT THIS TIME. BED LOW SIDE RAILS X2. CALL LIGHT WITHIN REACH. WILL CONTINUE TO MONITOR.
[2018-05-27 20:00] VITALS: BP 148/97
[2018-05-28] VITALS: BP 133/94
--- NOTE | 2018-05-28 03:09 | NUR ---
PT RESTING COMFORTABLY IN BED WITH EYES CLOSED RESPIRATIONS EQUAL UNLABORED. PT SIDE RAILS UP X2. BED IN LOW POSITION. WILL CONTINUE TO MONITOR.
--- NOTE | 2018-05-28 03:34 | NUR ---
RN NOTE: PATIENT RESTING COMFORTABLY IN BED. RESPIRATIONS ARE EVEN AND UNLABORED. NO S/S OF DISTRESS. CALL LIGHT WITHIN REACH. WILL CPOC.
[2018-05-28 04:00] VITALS: BP 116/86
--- NOTE | 2018-05-28 04:17 | NUR ---
RN NOTE: PATIENT RESTING COMFORTABLY IN BED. RESPIRATIONS ARE EVEN AND UNLABORED. NO S/S OF DISTRESS. CALL LIGHT WITHIN REACH. WILL CPOC.
--- NOTE | 2018-05-28 08:15 | NUR ---
PATIENT IS RESTING QUIETLY. DENIES ANY NEEDS AT THIS TIME.
--- NOTE | 2018-05-28 10:31 | NUR ---
MOLINA NEEDS OR C/O AT THIS TIME. WILL CONT. PLAN OF CARE.
[2018-05-28 10:34] VITALS: BP 127/96
--- NOTE | 2018-05-28 12:06 | NUR ---
OT NOTE: PT REPORTED SIGNIFICANT PAIN OF 8/10 BUT AGREEABLE TO GET UP; BED MOB WITH MIN ASSIST; SIT TO STAND WITH MOD ASSIST; AMB WITH MIN/MOD ASSIST X 2 X APPROX 30-40 FT; AGREEABLE TO SIT UP IN CHAIR ; DRANK ENSURE PROVIDED ; SIMPLE GROOMING TASKS WITH SET UP. DIOMEDES DAHL, OTR/L
[2018-05-28 12:28] LABS: ANION GAP 16.8 mmol/L (8-16); CALCIUM 9.6 mg/dL (8.5-10.1); CARBON DIOXIDE 27.4 mmol/L (21.0-32.0); CREATININE - SERUM 5.1 mg/dL (0.6-1.3); POTASSIUM - SERUM 4.2 mmol/L (3.5-5.1)
[2018-05-28 12:30] LABS: BASOPHILS 1.6 % (0-2); EOSINOPHILS 3.4 % (0-7); HEMATOCRIT 35.6 % (42.0-54.0); HEMOGLOBIN 11.7 g/dL (13.5-17.5); IMMATURE GRANULOCYTES 0.5 % (0-5); LYMPHOCYTES 33.3 % (15-50); MCH 29.7 pg (26.0-34.0); MCHC 32.9 g/dL (31.0-37.0); MCV 90.4 fL (80.0-100.0); MEAN PLATELET VOLUME 9.7 fL (7.4-10.4); MONOCYTES 9.5 % (2-11); NEUTROPHILS 51.7 % (40-80); PLATELET COUNT 159 10x3/uL (130-400); RBC 3.94 10x6/uL (4.20-6.10); RDW 14.2 % (11.5-14.5); WBC 3.8 10x3/uL (4.8-10.8)
[2018-05-28 13:06] VITALS: BP 132/79
[2018-05-28 16:17] VITALS: BP 120/96
--- NOTE | 2018-05-28 19:30 | NUR ---
ALERT/AWAKE ORIENTED X 3. DENIES PAIN. REQUESTED TO BE CLEANED FOR INCONTINENCE OF DIARRHEA.
[2018-05-28 19:54] VITALS: BP 116/84
--- NOTE | 2018-05-29 00:30 | NUR ---
FOOD SERVICE REPRESENTATIVE TAKING VS. DENIES ANY NEEDS OR DISCOMFORTS.
[2018-05-29 03:44] VITALS: BP 130/85
[2018-05-29 05:12] LABS: BASOPHILS 1.5 % (0-2); EOSINOPHILS 4.9 % (0-7); HEMATOCRIT 28.6 % (42.0-54.0); IMMATURE GRANULOCYTES 0.3 % (0-5); LYMPHOCYTES 26.3 % (15-50); MCH 28.7 pg (26.0-34.0); MCHC 31.8 g/dL (31.0-37.0); MCV 90.2 fL (80.0-100.0); MEAN PLATELET VOLUME 9.1 fL (7.4-10.4); MONOCYTES 13.8 % (2-11); NEUTROPHILS 53.2 % (40-80); PLATELET COUNT 141 10x3/uL (130-400); RBC 3.17 10x6/uL (4.20-6.10); WBC 3.3 10x3/uL (4.8-10.8)
[2018-05-29 05:17] LABS: HEMOGLOBIN 9.1 g/dL (13.5-17.5)
[2018-05-29 05:28] LABS: ANION GAP 14.6 mmol/L (8-16); CALCIUM 8.7 mg/dL (8.5-10.1); CARBON DIOXIDE 27.8 mmol/L (21.0-32.0); CREATININE - SERUM 4.4 mg/dL (0.6-1.3)
[2018-05-29 05:35] LABS: POTASSIUM - SERUM 3.4 mmol/L (3.5-5.1)
--- NOTE | 2018-05-29 07:56 | NUR ---
RESUMING PT CARE, PT IS LAYING IN BED WITH EYES OPEN, ALERT AND ORIENTED X3. BED IS IN LOWEST POSTION WITH RAILS UP X2. CALL LIGHT IN REACH, WILL CONTINUE TO MONITOR AND FOLLOW PLAN OF CARE.
[2018-05-29 09:27] VITALS: BP 138/45
--- NOTE | 2018-05-29 09:50 | NUR ---
RESTS IN BED WITH EYES CLOSED. CASTRO CATH INTACT. CALL LIGHT IN REACH. WILL CONT. PLAN OF CARE.
[2018-05-29 11:42] VITALS: BP 133/92
[2018-05-29 15:57] VITALS: BP 136/87
--- NOTE | 2018-05-29 19:10 | NUR ---
AWAKE WATCHING TV. DENIES ANY NEEDS. INITIAL ASSESSMENTS DONE PER [facility] FLOWCHART. ORIENTED TO CALL LIGHT.
[2018-05-29 20:00] VITALS: BP 130/91
--- NOTE | 2018-05-29 21:35 | NUR ---
ADMIN SCHED MEDS AND NORCO 10 PER REQUEST FOR C/O RT LEG PAIN LEVEL 7 ON NUMBER SCALE, DESCRIBED THROBBING. REQUESTED LIGHTS OFF AND DOOR CLOSED TO SLEEP.
--- NOTE | 2018-05-30 00:35 | NUR ---
AGRICULTURAL ENGINEERING TEACHER TAKING VS. REQUESTED MORE ICE WATER.
[2018-05-30 04:00] VITALS: BP 124/70
--- NOTE | 2018-05-30 06:15 | NUR ---
ADMIN NORCO 10 PER REQUEST FOR C/O RIGHT THIGH PAIN LEVEL 10.
[2018-05-30 06:54] LABS: BASOPHILS 1.5 % (0-2); EOSINOPHILS 3.8 % (0-7); HEMATOCRIT 28.7 % (42.0-54.0); HEMOGLOBIN 9.3 g/dL (13.5-17.5); IMMATURE GRANULOCYTES 0.3 % (0-5); LYMPHOCYTES 29.9 % (15-50); MCH 29.2 pg (26.0-34.0); MCHC 32.4 g/dL (31.0-37.0); MCV 90.3 fL (80.0-100.0); MEAN PLATELET VOLUME 9.7 fL (7.4-10.4); MONOCYTES 8.3 % (2-11); NEUTROPHILS 56.2 % (40-80); PLATELET COUNT 153 10x3/uL (130-400); RBC 3.18 10x6/uL (4.20-6.10); WBC 3.4 10x3/uL (4.8-10.8)
[2018-05-30 06:58] LABS: ANION GAP 13.2 mmol/L (8-16); CALCIUM 8.9 mg/dL (8.5-10.1); CARBON DIOXIDE 29.5 mmol/L (21.0-32.0); POTASSIUM - SERUM 3.7 mmol/L (3.5-5.1)
--- NOTE | 2018-05-30 08:15 | MORECARE ---
CASE MANAGEMENT DISCHARGE SUMMARY PATIENT: KENNY JONES UNIT: [id number] ADM DATE: 05/01/18 AGE: 52 : 67 SEX: M ROOM/BED: D.2100 AUTHOR: GEORGE BIRD PHYSICIAN: REFERRING PHYSICIAN: HANNAH HOBSON MD DATE OF SERVICE: 05/30/18 Discharge Plan Patient Name: KENNY JONES Facility[facility] : 1965 Planned Disposition: Halfway Facility Anticipated Discharge Date: Discharge Date: Expected LOS: Initial Reviewer: [id number] Initial Review Date: 05/06/2018 Generated: 05/30/18 9:14 am Comments DCP- Discharge Planning Updated by [id number]: Markie Burnette on 05/30/18 7:[address] Patient Name: KENNY JONES Encounter No: [id number] : 1965 Primary Insurance: [facility] MEDICARE SOLUTIONS Anticipated DC Date: Planned Disposition: Halfway Facility External Planned Provider: [facility], MEDICARE REHAB BED DCP follow-up note: CM FAXED UPDATE TO [facility] AT [phone]. [place] HAS APPROVED PT FOR REHAB ENTRY FOR UP TO 60 DAYS. PT HAS BEEN ACCEPTED FOR OUTPATIENT DIALYSIS, MWF, 0745AM AT [facility]. NOTIFCarol ANAYAY OF [facility], , OF DISCHARGE DAY WHEN KNOWN TO ENSURE PT HAS START DATE AT OUTPATIENT DIALYSIS CLINIC. FOR DISCHARGE, FAX DISCHARGE INFORMATION TO [facility] AT [phone], NURSE REPORT TO BE CALLED TO [facility] AT [phone]. [facility] TO ARRANGE VAN TRANSPORTATION FOR DISCHARGE TO REHAB. Markie Burnette, CASE MANAGEMENT DCP- Discharge Planning Updated by [id number]: Markie Burnette on 05/27/18 3:[address] Patient Name: KENNY JONES Encounter No: [id number] : 1965 Primary Insurance: [facility] MEDICARE SOLUTIONS Anticipated DC Date: Planned Disposition: Halfway Facility External Planned Provider: [facility], MEDICARE REHAB BED DCP follow-up note: CM RECEVIED CALL FROM [facility], THEY WILL ACCEPT PT FOR REHAB AND HAVE INSURANCE AUTHORIZATION TO ACCEPT PT. THEY WILL ACCEPT PT FOR REHAB WHEN READY FOR DISCHARGE. PT NOTIFIED AND IN AGREEMENT WITH REHAB AT [facility]. [facility] HAS APPROVED PT FOR REHAB ENTRY FOR UP TO 60 DAYS. PT HAS BEEN ACCEPTED FOR OUTPATIENT DIALYSIS, MWF, 0745AM AT [facility]. NOTIFCarol ANAYAY OF [facility], , OF DISCHARGE DAY WHEN KNOWN TO ENSURE PT HAS START DATE AT OUTPATIENT DIALYSIS CLINIC. FOR DISCHARGE, FAX DISCHARGE INFORMATION TO [facility] AT [phone], NURSE REPORT TO BE CALLED TO [facility] AT [phone]. [facility] TO ARRANGE VAN TRANSPORTATION FOR DISCHARGE TO REHAB. Markie Burnette DCP- Discharge Planning Updated by [id number]: Markie Burnette on 05/27/18 9:[address] Patient Name: KENNY CATALANB Encounter No: [id number] : 1965 Primary Insurance: [facility] MEDICARE SOLUTIONS Anticipated DC Date: Planned Disposition: Halfway Facility External Planned Provider: [facility], MEDICARE REHAB BED DCP follow-up note: CM RECEIVED CALL FROM [facility] OF [facility], , WHO ASKED CM FOR UPDATE AND THEY WILL DISCUSS PT IN ADMISSIONS STAFF MEETING TODAY FOR REHAB AT [facility]. CM FAXED UPDATE REQUESTED WITH LAST 5 DAYS OF NURSES NOTES TO [facility] AT [phone]. PT HAS BEEN DECLINED AT [facility], [facility]. [facility] HAS APPROVED PT FOR REHAB ENTRY FOR UP TO 60 DAYS. PT HAS BEEN ACCEPTED FOR OUTPATIENT DIALYSIS, MWF, 0745AM AT [facility]. CM WAITING ADMISSION DETERMINATIONS FROM [facility] AND [facility]. Markie Burnette, CASE MANAGEMENT Appended by Markie Burnette on 05/27/2018 10:02 LIFE MANAGER: CM FAXED UPDATED INFORMATION TO [facility] AND [facility]. CM FAXED PSYCHIATRIC CONSULTATION TO [place] FOR REVIEW. CM WAITING ADMISSION DETERMINATIONS FROM [facility] AND [facility] FOR REHAB SERVICES. DIOR Ocampo DCP- Discharge Planning Updated by [id number]: Markie Burnette on 05/26/18 2:[address] Patient Name: KENNY D JONES Encounter No: [id number] : 1965 Primary Insurance: [facility] MEDICARE SOLUTIONS Anticipated DC Date: Planned Disposition: Halfway Facility External Planned Provider: [facility] DCP follow-up note: CM REVIEWED CHART, FAXED UPDATE TO [facility] FOR REHAB PLACEMENT REQUEST, . CM FAXED REFERRAL TO [facility] FOR REHAB REQUEST, . CM FAXED UPDATE TO [facility] AT [phone]. CM FAXED REFERRAL TO [facility] AT [phone]. PT HAS BEEN DECLINED AT THE [facility]. [facility] HAS APPROVED PT FOR REHAB ENTRY FOR UP TO 60 DAYS. PT HAS BEEN ACCEPTED FOR OUTPATIENT DIALYSIS, MWF, 0745AM AT [facility]. CM WAITING ADMISSION DETERMINATIONS FROM [facility], [facility], [facility] AND [facility]. Markie Burnette, CASE MANAGEMENT Appended by Markie Burnette on 05/26/2018 10:52 LIFE MANAGER: CM SPOKE TO PT IN ROOM, DISCUSSED NEED FOR REHAB, DECLINATIONS SO FAR. PT SIGNED CONSENT FOR ANY LONG TERM FOR REHAB IN [place]. CM RECEIVED CALL FROM SHAILESH URENA [facility] WHO DECLINED PT. CM RECEIVED CALL FROM [facility] WHO DECLINED PT. CM RECEIVED CALL FROM NATI OF [facility] WHO DECLINED PT. CM RECEIVED CALL FROM [facility] WHO IS EVALUATING FOR REHAB PLACEMENT. PT HAS BEEN DECLINED AT THE [facility], [facility] AND [facility]. [facility] HAS APPROVED PT FOR REHAB ENTRY FOR UP TO 60 DAYS. PT HAS BEEN ACCEPTED FOR OUTPATIENT DIALYSIS, MWF, 0745AM AT [facility]. CM WAITING ADMISSION DETERMINATIONS FROM [facility], [facility] AND [facility]. Markie Burnette, CASE MANAGEMENT Appended by Markie Burnette on 05/26/2018 11:53 LIFE MANAGER: CM RECEIVED CALL FROM [facility] OF [facility] WHO REQUESTED TODAYS' MAR, ALL NURSES NOTES AND ASKED IF PT HAS CHEST TUBE AND HAD PSYCH EVALUATION FOR SUICIDAL IDEATIONS. CM EXPLAINED PT'S CHEST TUBE HAD BEEN REMOVED AND PT DID NOT COME IN FOR SUICIDAL IDEATIONS, BUT DOES HAVE HISTORY. CM FAXED REQUESTED INFORMATION AND SPOKE TO PT IN ROOM. PT REPORTS HE ALWAYS TAKES HIS MEDICINE AT HOME AND HAS BEEN SOBER FOR 4 YEARS AND MADE A BAD DECISION TO DRINK BEER THAT NIGHT. PT DOES NOT REMEMBER HOW MANY BEERS HE DRANK AND STATES HE SHOULD NOT HAVE BEEN DRINKING ANYWAY, MUCH LESS THAN WITH MEDICINE.. PT IS WILLING FOR REHAB PLACEMENT. PT HAS BEEN DECLINED AT THE [facility], [facility] AND [facility]. [facility] HAS APPROVED PT FOR REHAB ENTRY FOR UP TO 60 DAYS. PT HAS BEEN ACCEPTED FOR OUTPATIENT DIALYSIS, MWF, 0745AM AT [facility]. CM WAITING ADMISSION DETERMINATIONS FROM [facility], [facility] AND [facility]. Markie Burnette, CASE MANAGEMENT Appended by Markie Burnette on 05/26/2018 15:36 LIFE MANAGER: CM RECEIVED CALL FROM SASCHA OF [facility] WHO DECLINED PT REPORTING THEY CANNOT MEET HIS NEEDS. PT HAS BEEN DECLINED AT THE [facility], [facility] AND [facility]. [facility] HAS APPROVED PT FOR REHAB ENTRY FOR UP TO 60 DAYS. PT HAS BEEN ACCEPTED FOR OUTPATIENT DIALYSIS, MWF, 0745AM AT [facility]. CM WAITING ADMISSION DETERMINATIONS FROM [facility] AND [facility]. Markie Burnette, CASE MANAGEMENT DCP- Discharge Planning Updated by [id number]: Jazmine Conroy on 05/24/18 12:[address] Patient Name: KENNY JONES Admission Status: ER Accout number: [id number] Admission Date: 05-01-2018 : 1965 Admission Diagnosis:TOXIC ENCEPHALOPATHY Attending: HANNAH HOBSON Current LOS: 23 Anticipated DC Date: Planned Disposition: Halfway Facility Primary Insurance: [facility] MEDICARE SOLUTIONS Discharge Planning Comments: CM CALLED AND LEFT MSG WITH [facility] AND FAXED REFERRAL PAPERS. WAITING FOR CALL BACK FOR DETERMINATION. Mainspring Winder: Jazmine Conroy DCP- Discharge Planning Updated by [id number]: Markie Burnette on 05/23/18 7:[address] Patient Name: KENNY JONES Encounter No: [id number] : 1965 Primary Insurance: [facility] MEDICARE SOLUTIONS Anticipated DC Date: Planned Disposition: Halfway Facility External Planned Provider:[facility], MEDICARE REHAB BED DCP follow-up note: CM FAXED UPDATE TO [facility], , FOR REHAB REQUEST. CM WAITING ADMISSION DETERMINATION FROM [facility] FOR REHAB, INSURANCE AUTHORIZATION FOR REHAB SERVICES FROM PT'S INSURANCE. OUTPATIENT DIALYSIS CLINIC ARRANGEMENT COMPLETED FOR [facility], MWF, 0745AM, START DATE 05-23-18 IF REHAB PLACEMENT IS SECURED. Markie Burnette CASE MANAGEMENT DCP- Discharge Planning Updated by [id number]: Markie Burnette on 05/20/18 1:[address] Patient Name: KENNY JONES Encounter No: [id number] : 1965 Primary Insurance: [facility] MEDICARE SOLUTIONS Anticipated DC Date: Planned Disposition: Halfway Facility External Planned Provider: [facility], MEDICARE REHAB BED DCP follow-up note: CM SPOKE TO [facility] OF [facility], THEY ARE STILL WAITING ON INSURANCE AUTHORIZATION FROM PT'S INSURANCE COMPANY. CM RECEIVED MESSAGE FROM KENYATTA URENA [facility], PT HAS BEEN ACCEPTED FOR OUTPATIENT DIALYSIS, MWF, 0745AM AT [facility]. PT CAN START ON 05-23-18. CM NOTIFIED [facility] OF [facility]. CM WAITING ADMISSION DETERMINATION FROM [facility] FOR REHAB, INSURANCE AUTHORIZATION FOR REHAB SERVICES FROM PT'S INSURANCE. OUTPATIENT DIALYSIS CLINIC ARRANGEMENT COMPLETED FOR [facility], MWF, 0745AM, START DATE 05-23-18 IF REHAB PLACEMENT IS SECURED. Markie Burnette CASE MANAGEMENT DCP- Discharge Planning Updated by [id number]: Markie Burnette on 05/19/18 3:[address] Patient Name: KENNY JONES Encounter No: [id number] : 1965 Primary Insurance: [facility] MEDICARE SOLUTIONS Anticipated DC Date: Planned Disposition: Halfway Facility External Planned Provider: [facility], MEDICARE REHAB BED DCP follow-up note: [facility] APPROVED FOR LONG TERM FACILITY ENTRY FOR 60 DAYS OF REHAB. CM FAXED UPDATE TO [facility] AT [phone]. CM SPOKE TO KENYATTA OF [facility] WHO WILL CHECK ON OUTPATIENT DIALYSIS CLINIC ACCEPTANCE. CM WAITING ADMISSION DETERMINATION FROM [facility] FOR REH[facility], INSURANCE AUTHORIZATION FOR REHAB SERVICES FROM PT'S INSURANCE AND OUTPATIENT DIALYSIS CLINIC ARRANGEMENT BY [facility] COORDINATOR. Markie Burnette CASE MANAGEMENT DCP- Discharge Planning Updated by [id number]: Markie Burnette on 05/16/18 3:[address] Patient Name: KENNY JONES Encounter No: [id number] : 1965 Primary Insurance: [facility] MEDICARE SOLUTIONS Anticipated DC Date: Planned Disposition: Halfway Facility External Planned Provider: [facility], MEDICARE REHAB BED DCP follow-up note: CM RECEIVED [facility] APPROVAL FOR LONG TERM FACILITY ENTRY FOR 60 DAYS. CM FAXED UPDATE AND [facility] APPROVAL TO [facility] AT [phone]. CM WAITING ADMISSION DETERMINATION FROM [facility] FOR REH[facility], INSURANCE AUTHORIZATION FOR REHAB SERVICES FROM PT'S INSURANCE AND OUTPATIENT DIALYSIS CLINIC ARRANGEMENT BY [facility] COORDINATOR. Markie Burnette CASE MANAGEMENT DCP- Discharge Planning Updated by [id number]: Markie Burnette on 05/13/18 6:[address] Patient Name: KENNY JONES Encounter No: [id number] : 1965 Primary Insurance: [facility] MEDICARE SOLUTIONS Anticipated DC Date: Planned Disposition: Halfway Facility External Planned Provider: [facility], MEDICARE REHAB BED DCP follow-up note: CM MET WITH PT IN ROOM TO COMPLETE [facility] SCREENING ASSESSMENT. SCREENING FORMS COMPELTED AND SIGNED. CM FAXED TO [facility] AT [phone]. CM WAITING [facility] SCREENING COMPLETION. CM WAITING ADMISSION DETERMINATION FROM [facility] FOR [facility], INSURANCE AUTHORIZATION FOR REHAB SERVICES FROM PT'S INSURANCE AND OUTPATIENT DIALYSIS CLINIC [facility]EMENT BY [facility] COORDINATOR. Markie Burnette CASE MANAGEMENT DCP- Discharge Planning Updated by [id number]: Markie Burnette on 05/12/18 4:[address] Patient Name: KENNY JONES Encounter No: [id number] : 1965 Primary Insurance: [facility] MEDICARE SOLUTIONS Anticipated DC Date: Planned Disposition: Halfway Facility External Planned Provider: [facility], MEDICARE REHAB BED DCP follow-up note: CM MET WITH PT IN ROOM TO DISCUSS DISCHARGE PLANNING AND NEEDS. PT REPORTS HE CANNOT GO HOME ALONE LIKE THIS AND NEEDS REHAB FIRST. CM DISCUSSED REHAB OPTIONS AND LOCATIONS. PT DOES NOT WANT [facility] AND ASKED FOR [facility] FOR REHAB SERVICES. CHOICE LETTER SIGNED FOR [facility]. CM ADVISED PT THAT KENYATTA CHRISTOPHER OF [facility] WOULD BE IN CONTACT WITH PT REGARDING OUTPATIENT DIALYSIS CLINIC ARRANGEMENTS. PT REPORTS LIVING IN [place] AND HOPES TO BE INDEPENDENT AND RIDING HIS SCOOTER FOR TRANSPORT AFTER REHAB IS COMPLETED. PT REPORTS HIS BROTHER IS ASSISTING WITH CARING FOR PT'S DOG AT HOME AND PAYING PT'S BILLS WITH PT'S CHECK WHILE PT IS IN THE HOSPITAL. PT IS NOT ELIGIBLE FOR FREE TRANSPORT WITH MEDICAID TRANSPORTATION HE IS "[facility]" ONLY. CM FAXED REFERRAL TO [facility] AT [phone]. CM WAITING ADMISSION DETERMINATION FROM [facility] FOR REHAB, INSURANCE AUTHORIZATION FOR REHAB SERVICES FROM PT'S INSURANCE AND OUTPATIENT DIALYSIS CLINIC ARRANGEMENT BY [facility] COORDINATOR. DIOR Ocampo MANAGEMENT DCP- Discharge Planning Updated by [id number]: Markie Burnette on 05/12/18 11:[address] Patient Name: KENNY JONES Encounter No: [id number] : 1965 Primary Insurance: [facility] MEDICARE SOLUTIONS Anticipated DC Date: Planned Disposition: Home DCP follow-up note: CM RECEIVED ORDER FOR OUTPATIENT DIALYSIS AND POSSIBLE REHAB PLACEMENT NEEDS. RN TODD CANTU NOTIFED KENYATTA OF [facility] FOR NEW DAILYSIS CLINIC ARRANGEMENT. CM ATTEMPTED TO MEET WITH PT FOR INITIAL ASSESSMENT OF DISCHARGE NEEDS. PT WAS NOT IN ROOM AT APPROXIMATELY [id number] HOURS. CM TO ATTEMPT ASSESSMENT OF PT AT A LATER TIME. DIOR Ocampo DCP- Discharge Planning Updated by [id number]: Sonia Wyatt on 05/06/18 8:[address] Patient Name: KENNY JONES Admission Status: ER Accout number: [id number] Admission Date: 05-01-2018 : 1965 Admission Diagnosis:TOXIC ENCEPHALOPATHY Attending: HANNAH HOBSON Current LOS: 5 Anticipated DC Date: Planned Disposition: Home Primary Insurance: [facility] MEDICARE SOLUTIONS Discharge Planning Comments: CM met with patient at bedside after obtaining permission. Patient states he was living at home alone. Patient plans to return to his apartment upon discharge. Patient may need rehab before discharge. Patient denies any needs at this time. CM will continue to follow and assist with discharge planning / needs. Mainspring Winder: Sonia Wyatt DCPIA - Discharge Planning Initial Assessment Updated by [id number]: Sonia Wyatt on 05/06/18 8:59 pm * Is the patient Alert and Oriented? Yes * How many steps to enter\\exit or inside your home? * PCP Deirdre Rose * Pharmacy [facility] * Preadmission Environment Home Alone * ADLs Independent * Equipment None * List name and contact numbers for known caregivers / representatives who currently or will assist patient after discharge: Bryon Jones - Brother - [phone] * Verbal permission to speak to the caregivers and representatives has been obtained from the patient. N/A * Community resources currently utilized None * Additional services required to return to the preadmission environment? No * Can the patient safely return to the preadmission environment? Yes * Has this patient been hospitalized within the prior 30 days at any hospital? Yes Coverage Notice Reviewer: [id number] Lynne Burnette Notice Issued Date-Time: 05/12/2018 13:25 Notice Type: Patient Choice Letter Notice Delivered To: Patient Relationship to Patient: Cistern Room Operator Name: Delivery Method: HAND - Hand Delivered [place] Days: Prior Verbal Notification: Recipient Understood Notice: Yes Recipient Signature: Yes Med Rec Note Co-signed by Attending: Coverage Notice Comment: [facility] Reviewer: [id number] Burnette Notice Issued Date-Time: 05/26/2018 10:10 Notice Type: IM Discharge Notice Notice Delivered To: Patient Relationship to Patient: Cistern Room Operator Name: Delivery Method: HAND - Hand Delivered [place] Days: Prior Verbal Notification: Recipient Understood Notice: Yes Recipient Signature: Yes Med Rec Note Co-signed by Attending: Coverage Notice Comment: ANY LONG TERM FACILITY IN [place] FOR REHAB ONLY. Last DP export: 05/27/18 3:15 p Patient Name: KENNY JONES Page [id number] at 0815 All edits/amendments must be made on the electronic document DICTATION DATE: 05/30/18813 SENIOR UI UX DEVELOPER: SPENCER 05/30/18813 RPT#: [id number] DC DATE: STATUS: ADM IN [facility] [address] [place] [address] END OF REPORT
[2018-05-30 08:56] VITALS: BP 119/81
--- NOTE | 2018-05-30 09:00 | NUR ---
AM ROUNDS COMPLETED. VSS, AAOX3, RR UNLABORED, NO S/S OF DISTRESS. MD IN PT ROOM. AM MEDS GIVEN. PT DENIES ANY FURTHER NEED AT THIS TIME WILL CPOC. CL INREACH, BED IN LOW.
--- NOTE | 2018-05-30 12:09 | MORECARE ---
CASE MANAGEMENT DISCHARGE SUMMARY PATIENT: KENNY JONES UNIT: [id number] ADM DATE: 05/01/18 AGE: 52 : 67 SEX: M ROOM/BED: D.2103 AUTHOR: GEORGE BIRD PHYSICIAN: REFERRING PHYSICIAN: HANNAH HOBSON MD DATE OF SERVICE: 05/30/18 Discharge Plan Patient Name: KENNY JONES Facility: [facility]:[place] : 1965 Planned Disposition: Fdc Facility Anticipated Discharge Date: Discharge Date: Expected LOS: Initial Reviewer: [id number] Initial Review Date: 05/06/2018 Generated: 05/30/18 1:09 pm Comments DCP- Discharge Planning Updated by [id number]: Nasreen Alejandra on 05/30/18 11:[address] SPOKE WITH NANCY CHERRY APN WITH [facility] ABOUT POSSIBILITY OF DISCHARGE. EXPLAINED THAT PER RENAL IT LOOKED LIKE THEY JUST NEEDED TO GET HIS HEMOSPLIT OUT BEFORE DISCHARGE, THAT THE PATIENT WOULD NOT NEED FURTHER DIALYSIS. ALSO EXPLAINED THAT HIS INSURANCE HAD GIVEN AUTHORIZATION FOR SNF [facility]. SHE REQUESTED THAT I FIND OUT IF SURGERY HAD BEEN CONSULTED TO REMOVE IT OR NOT. IT WAS NOTED THERE WAS NO CONSULT FOR SURGERY. CALL PLACED TO GENEVA SHERWOOD APN WITH THE [facility]. SHE STATED THEY WERE GOOD WITH DISCHARGE. SHE STATED THAT THE PATIENT COULD DISCHARGE AND THE HEMOSPLIT COULD BE PULLED AT THE [facility] AT A LATER DATE. THIS WAS RELAYED TO NANCY, AND PER HER REQUEST, A CALL WAS PLACED TO THE [facility] TO VERIFY IF THIS WOULD BE OK SINCE THE PATIENT WILL NOT BE REQUIRING DIALYSIS. MARCK AT [facility] STATED SHE WOULD HAVE TO SPEAK TO HER RENTAL REPRESENTATIVE AND CALL ME BACK. STATING THAT RIGHT NOW SHE WAS AT LUNCH. WILL WAIT FOR A RETURN CALL WITH DETERMINATION. DCP- Discharge Planning Updated by [id number]: Markie Burnette on 05/30/18 7:[address] Patient Name: KENNY JONES Encounter No: [id number] : 1965 Primary Insurance: [facility] MED[employer] SOLUTIONS Anticipated DC Date: Planned Disposition: Fdc Facility External Planned Provider: [facility], MED[facility]ARE REHAB B[facility] DCP follow-up note: CM FAXED UPDATE TO [facility] AT [phone]. [facility] HAS APPROVED PT FOR REHAB ENTRY FOR UP TO 60 DAYS. PT HAS BEEN ACCEPTED FOR OUTPATIENT DIALYSIS, MWF, 0745AM AT [facility]. NOTIFY KENYATTA OF [facility], , OF DISCHARGE DAY WHEN KNOWN TO ENSURE PT HAS START DATE AT OUTPATIENT DIALYSIS CLINIC. FOR DISCHARGE, FAX DISCHARGE INFORMATION TO [facility] AT [phone], NURSE REPORT TO BE CALLED TO [facility] AT [phone]. [facility] TO ARRANGE VAN TRANSPORTATION FOR DISCHARGE TO REHAB. Markie Burnette, CASE MANAGEMENT DCP- Discharge Planning Updated by [id number]: Markie Burnette on 05/27/18 3:[address] Patient Name: KENNY JONES Encounter No: [id number] : 1965 Primary Insurance: [facility] MED[employer] SOLUTIONS Anticipated DC Date: Planned Disposition: Fdc Facility External Planned Provider: [facility], [facility]ARE [facility] B[facility] DCP follow-up note: CM RECEVIED CALL FROM [facility], THEY WILL ACCEPT PT FOR REHAB AND HAVE INSURANCE AUTHORIZATION TO ACCEPT PT. THEY WILL ACCEPT PT FOR REHAB WHEN READY FOR DISCHARGE. PT NOTIFIED AND IN AGREEMENT WITH REHAB AT [facility]. [facility] HAS APPROVED PT FOR REHAB ENTRY FOR UP TO 60 DAYS. PT HAS BEEN ACCEPTED FOR OUTPATIENT DIALYSIS, MWF, 0745AM AT [facility]. NOTIFY KENYATTA OF [facility], , OF DISCHARGE DAY WHEN KNOWN TO ENSURE PT HAS START DATE AT OUTPATIENT DIALYSIS CLINIC. FOR DISCHARGE, FAX DISCHARGE INFORMATION TO [facility] AT [phone], NURSE REPORT TO BE CALLED TO [facility] AT [phone]. [facility] TO ARRANGE VAN TRANSPORTATION FOR DISCHARGE TO REHAB. Markie Burnette DCP- Discharge Planning Updated by [id number]: Markie Burnette on 05/27/18 9:[address] Patient Name: KENNY JONES Encounter No: [id number] : 1965 Primary Insurance: [facility] MED[employer] SOLUTIONS Anticipated DC Date: Planned Disposition: Fdc Facility External Planned Provider: [facility], MEDICARE REHAB BED DCP follow-up note: CM RECEIVED CALL FROM [facility], , WHO ASKED CM FOR UPDATE AND THEY WILL DISCUSS PT IN ADMISSIONS STAFF MEETING TODAY FOR REHAB AT [facility]. CM FAXED UPDATE REQUESTED WITH LAST 5 DAYS OF NURSES NOTES TO [facility] AT [phone]. PT HAS BEEN DECLINED AT THE [facility], [facility], [facility] AND [facility]. [facility] HAS APPROVED PT FOR REHAB ENTRY FOR UP TO 60 DAYS. PT HAS BEEN ACCEPTED FOR OUTPATIENT DIALYSIS, MWF, 0745AM AT [facility]. CM WAITING ADMISSION DETERMINATIONS FROM [facility] AND [facility]. Markie Burnette, CASE MANAGEMENT Appended by Markie Burnette on 05/27/2018 10:02 DIGITAL ANALYST: CM FAXED UPDATED INFORMATION TO [facility] AND [facility]. CM FAXED PSYCHIATRIC CONSULTATION TO [facility] FOR REVIEW. CM WAITING ADMISSION DETERMINATIONS FROM [facility] AND [facility] FOR REHAB SERVICES. Markie Burentte CASE MANAGEMENT DCP- Discharge Planning Updated by [id number]: Markie Burnette on 05/26/18 2:[address] Patient Name: KENNY JONES Encounter No: [id number] : 1965 Primary Insurance: [facility] MED[employer] SOLUTIONS Anticipated DC Date: Planned Disposition: Fdc Facility External Planned Provider: FIRST ACCEPTING FACILITY DCP follow-up note: CM REVIEWED CHART, FAXED UPDATE TO [facility] FOR REHAB PLACEMENT REQUEST, . CM FAXED REFERRAL TO [facility] FOR REHAB REQUEST, . CM FAXED UPDATE TO [facility] AT [phone]. CM FAXED REFERRAL TO [facility] AT [phone]. PT HAS BEEN DECLINED AT THE [facility]. [facility] HAS APPROVED PT FOR REHAB ENTRY FOR UP TO 60 DAYS. PT HAS BEEN ACCEPTED FOR OUTPATIENT DIALYSIS, MWF, 0745AM AT [facility]. CM WAITING ADMISSION DETERMINATIONS FROM [facility], [facility] AND [facility]. Markie Burnette, CASE MANAGEMENT Appended by Markie Burnette on 05/26/2018 10:52 DIGITAL ANALYST: CM SPOKE TO PT IN ROOM, DISCUSSED NEED FOR REHAB, DECLINATIONS SO FAR. PT SIGNED CONSENT FOR ANY LONG-TERM FOR REHAB IN [place]. CM RECEIVED CALL FROM SHAILESH URENA [facility] WHO DECLINED PT. CM RECEIVED CALL FROM [facility] WHO DECLINED PT. CM RECEIVED CALL FROM [facility] WHO DECLINED PT. CM RECEIVED CALL FROM [facility] WHO IS EVALUATING FOR REHAB PLACEMENT. PT HAS BEEN DECLINED AT THE [facility] AND [facility]. [facility] HAS APPROVED PT FOR REHAB ENTRY FOR UP TO 60 DAYS. PT HAS BEEN ACCEPTED FOR OUTPATIENT DIALYSIS, MWF, 0745AM AT [facility]. CM WAITING ADMISSION DETERMINATIONS FROM [facility], [facility] AND [facility]. Markie Burnette, CASE MANAGEMENT Appended by Markie Burnette on 05/26/2018 11:53 DIGITAL ANALYST: CM RECEIVED CALL FROM [facility] WHO REQUESTED [facility]' MAR, ALL NURSES NOTES AND ASKED IF PT HAS CHEST TUBE AND HAD PSYCH EVALUATION FOR SUICIDAL IDEATIONS. CM EXPLAINED PT'S CHEST TUBE HAD BEEN REMOVED AND PT DID NOT COME IN FOR SUICIDAL IDEATIONS, BUT DOES HAVE HISTORY. CM FAXED REQUESTED INFORMATION AND SPOKE TO PT IN ROOM. PT REPORTS HE ALWAYS TAKES HIS MEDICINE AT HOME AND HAS BEEN SOBER FOR 4 YEARS AND MADE A BAD DECISION TO DRINK BEER THAT NIGHT. PT DOES NOT REMEMBER HOW MANY BEERS HE DRANK AND STATES HE SHOULD NOT HAVE BEEN DRINKING ANYWAY, MUCH LESS THAN WITH MEDICINE.. PT IS WILLING FOR REHAB PLACEMENT. PT HAS BEEN DECLINED AT THE [facility] AND [facility]. [facility] HAS APPROVED PT FOR REHAB ENTRY FOR UP TO 60 DAYS. PT HAS BEEN ACCEPTED FOR OUTPATIENT DIALYSIS, MWF, 0745AM AT [facility]. CM WAITING ADMISSION DETERMINATIONS FROM [facility], [facility] AND [facility]. Markie Burnette, CASE MANAGEMENT Appended by Markie Burnette on 05/26/2018 15:36 DIGITAL ANALYST: CM RECEIVED CALL FROM [facility] WHO DECLINED PT REPORTING THEY CANNOT MEET HIS NEEDS. PT HAS BEEN DECLINED AT THE [facility] AND [facility]. [facility] HAS APPROVED PT FOR REHAB ENTRY FOR UP TO 60 DAYS. PT HAS BEEN ACCEPTED FOR OUTPATIENT DIALYSIS, MWF, 0745AM AT [facility]. CM WAITING ADMISSION DETERMINATIONS FROM [facility] AND [facility]. Markie Burnette CASE PATRICIA DCP- Discharge Planning Updated by [id number]: Jazmine Conroy on 05/24/18 12:[address] Patient Name: KENNY JONES Admission Status: ER Accout number: [id number] Admission Date: 05-01-2018 : 1965 Admission Diagnosis:TOXIC ENCEPHALOPATHY Attending: HANNAH HOBSON Current LOS: 23 Anticipated DC Date: Planned Disposition: Fdc Facility Primary Insurance: [facility] MEDIC[employer] SOLUTIONS Discharge Planning Comments: CM CALLED AND LEFT [facility]G WITH [facility] AND FAXED REFERRAL PAPERS. WAITING FOR CALL BACK FOR DETERMINATION. Cath Lab Radiology Technician: Jazmine Conroy DCP- Discharge Planning Updated by [id number]: Markie Burnette on 05/23/18 7:[address] Patient Name: KENNY JONES Encounter No: [id number] : 1965 Primary Insurance: [facility] MED[employer] SOLUTIONS Anticipated DC Date: Planned Disposition: Fdc Facility External Planned Provider:[facility], MEDICARE REHAB BED DCP follow-up note: CM FAXED UPDATE TO [facility], , FOR REHAB REQUEST. CM WAITING ADMISSION DETERMINATION FROM [facility] FOR REHAB, INSURANCE AUTHORIZATION FOR REHAB SERVICES FROM 'S INSURANCE. OUTPATIENT DIALYSIS CLINIC ARRANGEMENT COMPLETED FOR [facility], MWF, 0745AM, START DATE 05-23-18 IF REHAB PLACEMENT IS SECURED. DIOR Ocampo DCP- Discharge Planning Updated by [id number]: Markie Burnette on 05/20/18 1:[address] Patient Name: KENNY JONES Encounter No: [id number] : 1965 Primary Insurance: [facility] MED[employer] SOLUTIONS Anticipated DC Date: Planned Disposition: Fdc Facility External Planned Provider: [facility], MEDICARE REHAB BED DCP follow-up note: CM SPOKE TO RAUL OF [facility], THEY ARE STILL WAITING ON INSURANCE AUTHORIZATION FROM PT'S INSURANCE COMPANY. CM RECEIVED MESSAGE FROM KENYATTA OF [facility], PT HAS BEEN ACCEPTED FOR OUTPATIENT DIALYSIS, MWF, 0745AM AT [facility]. PT CAN START ON 05-23-18. CM NOTIFIED [facility] OF [facility]. CM WAITING ADMISSION DETERMINATION FROM [facility] FOR REH[facility], INSURANCE AUTHORIZATION FOR REHAB SERVICES FROM PT'S INSURANCE. OUTPATIENT DIALYSIS CLINIC ARRANGEMENT COMPLETED FOR [facility], MWF, 0745AM, START DATE 05-23-18 IF REHAB PLACEMENT IS SECURED. Markie Burnette CASE PATRICIA DCP- Discharge Planning Updated by [id number]: Markie Burnette on 05/19/18 3:[address] Patient Name: KENNY JONES Encounter No: [id number] : 1965 Primary Insurance: [facility] MEDIC[employer] SOLUTIONS Anticipated DC Date: Planned Disposition: Fdc Facility External Planned Provider: [facility], MEDICARE REHAB BED DCP follow-up note: [facility] APPROVED FOR LONG-TERM FACILITY ENTRY FOR 60 DAYS OF REHAB. CM FAXED UPDATE TO [facility] AT [phone]. CM SPOKE TO KENYATTA U[facility] WHO WILL CHECK ON OUTPATIENT DIALYSIS CLINIC ACCEPTANCE. CM WAITING ADMISSION DETERMINATION FROM [facility] FOR REH[facility], INSURANCE AUTHORIZATION FOR REHAB SERVICES FROM PT'S INSURANCE AND OUTPATIENT DIALYSIS CLINIC [facility]EMENT [facility] COORDINATOR. Markie Burnette CASE PATRICIA DCP- Discharge Planning Updated by [id number]: Markie Burnette on 05/16/18 3:[address] Patient Name: KENNY JONES Encounter No: [id number] : 1965 Primary Insurance: [facility] MEDIC[employer] SOLUTIONS Anticipated DC Date: Planned Disposition: Fdc Facility External Planned Provider: [facility], MEDICARE REHAB BED DCP follow-up note: CM RECEIVED [facility] APPROVAL FOR LONG-TERM FACILITY ENTRY FOR 60 DAYS. CM FAXED UPDATE AND [facility] APPROVAL TO [facility] [employer] AT [phone]. CM WAITING ADMISSION DETERMINATION FROM [facility] FOR REH[facility], INSURANCE AUTHORIZATION FOR REHAB SERVICES FROM PT'S INSURANCE AND OUTPATIENT DIALYSIS CLINIC ARRANGEMENT BY [facility]IENT [facility]WAYS COORDINATOR. DIOR Ocampo DCP- Discharge Planning Updated by [id number]: Markie Burnette on 05/13/18 6:[address] Patient Name: KENNY JONES Encounter No: [id number] : 1965 Primary Insurance: [facility] MED[employer] SOLUTIONS Anticipated DC Date: Planned Disposition: Fdc Facility External Planned Provider: [facility], MEDICARE REHAB BED DCP follow-up note: CM MET WITH PT IN ROOM TO COMPLETE [facility] SCREENING ASSESSMENT. SCREENING FORMS COMPELTED AND SIGNED. CM FAXED TO [facility] AT [phone]. CM WAITING [facility] SCREENING COMPLETION. CM WAITING ADMISSION DETERMINATION FROM [facility] FOR RE[facility], INSURANCE AUTHORIZATION FOR REHAB SERVICES FROM PT'S INSURANCE AND OUTPATIENT DIALYSIS CLINIC [facility]EMENT [facility] COORDINATOR. DIOR Ocampo DCP- Discharge Planning Updated by [id number]: Markie Burnette on 05/12/18 4:[address] Patient Name: KENNY JONES Encounter No: [id number] : 1965 Primary Insurance: [facility] MEDIC[facility] SOLUTIONS Anticipated DC Date: Planned Disposition: Fdc Facility External Planned Provider: [facility], MEDICARE REHAB BED DCP follow-up note: CM MET WITH PT IN ROOM TO DISCUSS DISCHARGE PLANNING AND NEEDS. PT REPORTS HE CANNOT GO HOME ALONE LIKE THIS AND NEEDS REHAB FIRST. CM DISCUSSED REHAB OPTIONS AND LOCATIONS. PT DOES NOT WANT SKILLED NURSING CARE AND ASKED FOR [facility] FOR REHAB SERVICES. CHOICE LETTER SIGNED FOR [facility]. CM ADVISED PT THAT KENYATTA CHRISTOPHER OF [facility] WOULD BE IN CONTACT WITH PT REGARDING OUTPATIENT DIALYSIS CLINIC ARRANGEMENTS. PT REPORTS LIVING IN [place] AND HOPES TO BE INDEPENDENT AND RIDING HIS SCOOTER FOR TRANSPORT AFTER REHAB IS COMPLETED. PT REPORTS HIS BROTHER IS ASSISTING WITH CARING FOR PT'S DOG AT HOME AND PAYING PT'S BILLS WITH PT'S CHECK WHILE PT IS IN THE HOSPITAL. PT IS NOT ELIGIBLE FOR FREE TRANSPORT WITH MEDICAID TRANSPORTATION HE IS "[facility]" ONLY. CM FAXED REFERRAL TO [facility] AT [phone]. CM WAITING ADMISSION DETERMINATION FROM [facility] FOR RE[facility], INSURANCE AUTHORIZATION FOR REHAB SERVICES FROM PT'S INSURANCE AND OUTPATIENT DIALYSIS CLINIC [facility]EMENT [facility] COORDINATOR. Markie Burnette CASE PATRICIA DCP- Discharge Planning Updated by [id number]: Markie Burnette on 05/12/18 11:[address] Patient Name: KNENY JONES Encounter No: [id number] : 1965 Primary Insurance: [facility] MEDIC[employer] SOLUTIONS Anticipated DC Date: Planned Disposition: Home DCP follow-up note: CM RECEIVED ORDER FOR OUTPATIENT DIALYSIS AND POSSIBLE REHAB PLACEMENT NEEDS. [facility] NOTIFED KENYATTA OF [facility] FOR [facility]. CM ATTEMPTED TO MEET WITH PT FOR INITIAL ASSESSMENT OF DISCHARGE NEEDS. PT WAS NOT IN ROOM AT APPROXIMATELY [id number] HOURS. CM TO ATTEMPT ASSESSMENT OF PT AT A LATER TIME. Markie Burnette, CASE MANAGEMENT DCP- Discharge Planning Updated by [id number]: Sonia Wyatt on 05/06/18 8:[address] Patient Name: KENNY JONES Admission Status: ER Accout number: [id number] Admission Date: 05-01-2018 : 1965 Admission Diagnosis:TOXIC ENCEPHALOPATHY Attending: HANNAH HOBSON Current LOS: 5 Anticipated DC Date: Planned Disposition: Home Primary Insurance: [facility] MEDIC[employer] SOLUTIONS Discharge Planning Comments: CM met with patient at bedside after obtaining permission. Patient states he was living at home alone. Patient plans to return to his apartment upon discharge. Patient may need rehab before discharge. Patient denies any needs at this time. CM will continue to follow and assist with discharge planning / needs. Cath Lab Radiology Technician: Sonia Wyatt DCPIA - Discharge Planning Initial Assessment Updated by [id number]: Sonia Wyatt on 05/06/18 8:59 pm * Is the patient Alert and Oriented? Yes * How many steps to enter\\exit or inside your home? * PCP Deirdre Rose * Pharmacy [facility] * Preadmission Environment Home Alone * ADLs Independent * Equipment None * List name and contact numbers for known caregivers / representatives who currently or will assist patient after discharge: Bryon Jones - Brother - [phone] * Verbal permission to speak to the caregivers and representatives has been obtained from the patient. N/A * Community resources currently utilized None * Additional services required to return to the preadmission environment? No * Can the patient safely return to the preadmission environment? Yes * Has this patient been hospitalized within the prior 30 days at any hospital? Yes Coverage Notice Reviewer: [id number] Lynne Burnette Notice Issued Date-Time: 05/12/2018 13:25 Notice Type: Patient Choice Letter Notice Delivered To: Patient Relationship to Patient: Oil Well Logger Name: Delivery Method: HAND - Hand Delivered [place] Days: Prior Verbal Notification: Recipient Understood Notice: Yes Recipient Signature: Yes Med Rec Note Co-signed by Attending: Coverage Notice Comment: [facility] Reviewer: [id number] Lynne Burnette Notice Issued Date-Time: 05/26/2018 10:10 Notice Type: IM Discharge Notice Notice Delivered To: Patient Relationship to Patient: Oil Well Logger Name: Delivery Method: HAND - Hand Delivered [place] Days: Prior Verbal Notification: Recipient Understood Notice: Yes Recipient Signature: Yes Med Rec Note Co-signed by Attending: Coverage Notice Comment: ANY LONG-TERM FACILITY IN [place] FOR REHAB ONLY. Last DP export: 05/30/18 7:15 a Patient Name: KENNY JONES Page [id number] at 1209 All edits/amendments must be made on the electronic document DICTATION DATE: 05/30/18 120 SOLVENT MIXER: SPENCER 05/30/18 1209 RPT#: [id number] DC DATE: STATUS: ADM IN [facility] [address] [place] [address] END OF REPORT
--- NOTE | 2018-05-30 13:01 | MORECARE ---
CASE MANAGEMENT DISCHARGE SUMMARY PATIENT: KENNY JONES UNIT: [id number] ADM DATE: 05/01/18 AGE: 52 : 67 SEX: M ROOM/BED: D.2108 AUTHOR: MARGE,DOC PHYSICIAN: REFERRING PHYSICIAN: HANNAH HOBSON MD DATE OF SERVICE: 05/30/18 Discharge Plan Patient Name: KENNY JONES Facility: [facility]:[place] : 1965 Planned Disposition: Fpc Facility Anticipated Discharge Date: Discharge Date: Expected LOS: Initial Reviewer: [id number] Initial Review Date: 05/06/2018 Generated: 05/30/18 2:01 pm Comments DCP- Discharge Planning Updated by [id number]: Nasreen Cantu on 05/30/18 11:[address] RECEIVED A CALL BACK FROM MARCK AT [facility], SHE STATED THAT THEY WOULD ACCEPT THE PATIENT TODAY IF THEY HAD A DATE AND TIME SET UP FOR THE HEMOSPLIT REMOVAL AND ORDERS FOR ANY SPECIAL CARE THAT THEY NEEDED TO PROVIDE TO IT UNTIL IT IS REMOVED. I EXPLAINED THIS TO NANCY AND THAT WE WOULD WORK ON GETTING THOSE TWO THINGS, AND NANCY STATED THAT SHE WOULD PUT IN THE ORDERS. I SPOKE WITH KIMBERLYN SUERO CHUMMER AND ASKED IF SHE COULD PLEASE CALL [facility] [employer] TO SEE IF THIS COULD BE DONE. SHE AGREED. DCP- Discharge Planning Updated by [id number]: Nasreen Cantu on 05/30/18 11:[address] SPOKE WITH NANCY CHERRY APN WITH [facility] ABOUT POSSIBILITY OF DISCHARGE. EXPLAINED THAT PER RENAL IT LOOKED LIKE THEY JUST NEEDED TO GET HIS HEMOSPLIT OUT BEFORE DISCHARGE, THAT THE PATIENT WOULD NOT NEED FURTHER DIALYSIS. ALSO EXPLAINED THAT HIS INSURANCE HAD GIVEN AUTHORIZATION FOR SNF AT [facility]. SHE REQUESTED THAT I FIND OUT IF SURGERY HAD BEEN CONSULTED TO REMOVE IT OR NOT. IT WAS NOTED THERE WAS NO CONSULT FOR SURGERY. CALL PLACED TO GENEVA SHERWOOD APN WITH THE [facility]. SHE STATED THEY WERE GOOD WITH DISCHARGE. SHE STATED THAT THE PATIENT COULD DISCHARGE AND THE HEMOSPLIT COULD BE PULLED AT THE [facility] AT A LATER DATE. THIS WAS RELAYED TO NANCY, AND PER HER REQUEST, A CALL WAS PLACED TO THE [facility] TO VERIFY IF THIS WOULD BE OK SINCE THE PATIENT WILL NOT BE REQUIRING DIALYSIS. MARCK AT [facility] STATED SHE WOULD HAVE TO SPEAK TO HER ROOFER AND CALL ME BACK. STATING THAT RIGHT NOW SHE WAS AT LUNCH. WILL WAIT FOR A RETURN CALL WITH DETERMINATION. DCP- Discharge Planning Updated by [id number]: Markie Burnette on 05/30/18 7:[address] Patient Name: KENNY JONES Encounter No: [id number] : 1965 Primary Insurance: [facility] [employer] [employer] Anticipated DC Date: Planned Disposition: Fpc Facility External Planned Provider: [facility], MEDICARE REHAB BED DCP follow-up note: CM FAXED UPDATE TO [facility] AT [phone]. [facility] HAS APPROVED PT FOR REHAB ENTRY FOR UP TO 60 DAYS. PT HAS BEEN ACCEPTED FOR OUTPATIENT DIALYSIS, MWF, 0745AM AT [facility]. NOTIFY KENYATTA OF PATIENT [facility], , OF DISCHARGE DAY WHEN KNOWN TO ENSURE PT HAS START DATE AT OUTPATIENT DIALYSIS CLINIC. FOR DISCHARGE, FAX DISCHARGE INFORMATION TO [facility] AT [phone], NURSE REPORT TO BE CALLED TO [facility] AT [phone]. [facility] TO ARRANGE VAN TRANSPORTATION FOR DISCHARGE TO REHAB. Markie Burnette, CASE MANAGEMENT DCP- Discharge Planning Updated by [id number]: Markie Burnette on 05/27/18 3:[address] Patient Name: KENNY JONES Encounter No: [id number] : 1965 Primary Insurance: [facility] [employer] [employer] Anticipated DC Date: Planned Disposition: Fpc Facility External Planned Provider: [facility], MEDICARE REHAB BED DCP follow-up note: CM RECEVIED CALL FROM MARCK OF [facility], THEY WILL ACCEPT PT FOR REHAB AND HAVE INSURANCE AUTHORIZATION TO ACCEPT PT. THEY WILL ACCEPT PT FOR REHAB WHEN READY FOR DISCHARGE. PT NOTIFIED AND IN AGREEMENT WITH REHAB AT [facility]. [facility] HAS APPROVED PT FOR REHAB ENTRY FOR UP TO 60 DAYS. PT HAS BEEN ACCEPTED FOR OUTPATIENT DIALYSIS, MWF, 0745AM AT [facility]. NOTIFCarol YOU OF PATIENT [facility], , OF DISCHARGE DAY WHEN KNOWN TO ENSURE PT HAS START DATE AT OUTPATIENT DIALYSIS CLINIC. FOR DISCHARGE, FAX DISCHARGE INFORMATION TO [facility] AT [phone], NURSE REPORT TO BE CALLED TO [facility] AT [phone]. [facility] TO ARRANGE VAN TRANSPORTATION FOR DISCHARGE TO REHAB. Markie Burnette DCP- Discharge Planning Updated by [id number]: Markie Burnette on 05/27/18 9:[address] Patient Name: KENNY JONES Encounter No: [id number] : 1965 Primary Insurance: [facility] [employer] Anticipated DC Date: Planned Disposition: Fpc Facility External Planned Provider: FIRST ACCEPTING FACILITY, MEDICARE REHAB BED DCP follow-up note: CM RECEIVED CALL FROM MARCK OF [facility], , WHO ASKED CM FOR UPDATE AND THEY WILL DISCUSS PT IN ADMISSIONS STAFF MEETING TODAY FOR REHAB AT [facility]. CM FAXED UPDATE REQUESTED WITH LAST 5 DAYS OF NURSES NOTES TO [facility] AT [phone]. PT HAS BEEN DECLINED AT THE [facility], [facility], [facility], [facility] AND [facility]. [facility] HAS APPROVED PT FOR REHAB ENTRY FOR UP TO 60 DAYS. PT HAS BEEN ACCEPTED FOR OUTPATIENT DIALYSIS, MWF, 0745AM AT [facility]. CM WAITING ADMISSION DETERMINATIONS FROM [facility] AND [facility]. Markie Burnette, CASE MANAGEMENT Appended by Markie Burnette on 05/27/2018 10:02 TELECOMMUNICATIONS PROFESSIONAL: CM FAXED UPDATED INFORMATION TO [facility] AND [facility]. CM FAXED PSYCHIATRIC CONSULTATION TO [facility] FOR REVIEW. CM WAITING ADMISSION DETERMINATIONS FROM [facility], [facility] AND [facility] FOR REHAB SERVICES. Markie Burnette, CASE MANAGEMENT DCP- Discharge Planning Updated by [id number]: Markie Burnette on 05/26/18 2:[address] Patient Name: KENNY JONES Encounter No: [id number] : 1965 Primary Insurance: [facility] [employer] Anticipated DC Date: Planned Disposition: Fpc Facility External Planned Provider: [facility]ING [facility] DCP follow-up note: CM REVIEWED CHART, FAXED UPDATE TO [facility] FOR REHAB PLACEMENT REQUEST, . CM FAXED REFERRAL TO [facility] FOR REHAB REQUEST, . CM FAXED UPDATE TO [facility] AT [phone]. CM FAXED REFERRAL TO [facility] AT [phone]. PT HAS BEEN DECLINED AT THE [facility]. [facility] HAS APPROVED PT FOR REHAB ENTRY FOR UP TO 60 DAYS. PT HAS BEEN ACCEPTED FOR OUTPATIENT DIALYSIS, MWF, 0745AM AT [facility]. CM WAITING ADMISSION DETERMINATIONS FROM [facility] AND [facility]. Markie Burnette, CASE MANAGEMENT Appended by Markie Burnette on 05/26/2018 10:52 TELECOMMUNICATIONS PROFESSIONAL: CM SPOKE TO PT IN ROOM, DISCUSSED NEED FOR REHAB, DECLINATIONS SO FAR. PT SIGNED CONSENT FOR ANY [facility] FOR REHAB IN [place]. CM RECEIVED CALL FROM [facility] WHO DECLINED PT. CM RECEIVED CALL FROM [facility] WHO DECLINED PT. CM RECEIVED CALL FROM [facility] WHO DECLINED PT. CM RECEIVED CALL FROM [facility] WHO IS EVALUATING FOR REHAB PLACEMENT. PT HAS BEEN DECLINED AT THE [facility] AND [facility]. [facility] HAS APPROVED PT FOR REHAB ENTRY FOR UP TO 60 DAYS. PT HAS BEEN ACCEPTED FOR OUTPATIENT DIALYSIS, MWF, 0745AM AT [facility]. CM WAITING ADMISSION DETERMINATIONS FROM [facility], [facility] AND [facility]. Markie Burnette, CASE MANAGEMENT Appended by Markie Burnette on 05/26/2018 11:53 TELECOMMUNICATIONS PROFESSIONAL: CM RECEIVED CALL FROM [facility] OF [facility] WHO REQUESTED TODAYS' MAR, ALL NURSES NOTES AND ASKED IF PT HAS CHEST TUBE AND HAD PSYCH EVALUATION FOR SUICIDAL IDEATIONS. CM EXPLAINED PT'S CHEST TUBE HAD BEEN REMOVED AND PT DID NOT COME IN FOR SUICIDAL IDEATIONS, BUT DOES HAVE HISTORY. CM FAXED REQUESTED INFORMATION AND SPOKE TO PT IN ROOM. PT REPORTS HE ALWAYS TAKES HIS MEDICINE AT HOME AND HAS BEEN SOBER FOR 4 YEARS AND MADE A BAD DECISION TO DRINK BEER THAT NIGHT. PT DOES NOT REMEMBER HOW MANY BEERS HE DRANK AND STATES HE SHOULD NOT HAVE BEEN DRINKING ANYWAY, MUCH LESS THAN WITH MEDICINE.. PT IS WILLING FOR REHAB PLACEMENT. PT HAS BEEN DECLINED AT THE [facility] AND [facility]. [facility] HAS APPROVED PT FOR REHAB ENTRY FOR UP TO 60 DAYS. PT HAS BEEN ACCEPTED FOR OUTPATIENT DIALYSIS, MWF, 0745AM AT [facility]. CM WAITING ADMISSION DETERMINATIONS FROM [facility], [facility], [facility] AND [facility]. Markie Burnette, CASE MANAGEMENT Appended by Markie Burnette on 05/26/2018 15:36 TELECOMMUNICATIONS PROFESSIONAL: CM RECEIVED CALL FROM [facility] OF [facility] WHO DECLINED PT REPORTING THEY CANNOT MEET HIS NEEDS. PT HAS BEEN DECLINED AT THE [facility], [facility], [facility] AND [facility]. [facility] HAS APPROVED PT FOR REHAB ENTRY FOR UP TO 60 DAYS. PT HAS BEEN ACCEPTED FOR OUTPATIENT DIALYSIS, MWF, 0745AM AT [facility]. CM WAITING ADMISSION DETERMINATIONS FROM [facility] AND [facility]. Markie Burnette, CASE MANAGEMENT DCP- Discharge Planning Updated by [id number]: Jazmine Conroy on 05/24/18 12:[address] Patient Name: KENNY JONES Admission Status: ER Accout number: [id number] Admission Date: 05-01-2018 : 1965 Admission Diagnosis:TOXIC ENCEPHALOPATHY Attending: HANNAH HOBSON Current LOS: 23 Anticipated DC Date: Planned Disposition: Fpc Facility Primary Insurance: [facility] [employer] [employer] Discharge Planning Comments: CM CALLED AND LEFT MSG WITH [facility] AND FAXED REFERRAL PAPERS. WAITING FOR CALL BACK FOR DETERMINATION. Spaghetti Machine Operator: Jazmine Conroy DCP- Discharge Planning Updated by [id number]: Markie Burnette on 05/23/18 7:[address] Patient Name: KENNY JONES Encounter No: [id number] : 1965 Primary Insurance: [facility] [employer] Anticipated DC Date: Planned Disposition: Fpc Facility External Planned Provider:[facility], MEDICARE REHAB BED DCP follow-up note: CM FAXED UPDATE TO THE [facility], , FOR REHAB REQUEST. CM WAITING ADMISSION DETERMINATION FROM THE [facility] FOR REHAB, INSURANCE AUTHORIZATION FOR REHAB SERVICES FROM PT'S INSURANCE. OUTPATIENT DIALYSIS CLINIC ARRANGEMENT COMPLETED FOR [facility], MWF, 0745AM, START DATE 05-23-18 IF REHAB PLACEMENT IS SECURED. Markie Burnette CASE PATRICIA DCP- Discharge Planning Updated by [id number]: Markie Burnette on 05/20/18 1:[address] Patient Name: KENNY CATALNAB Encounter No: [id number] : 1965 Primary Insurance: [facility] [employer] [employer] Anticipated DC Date: Planned Disposition: Fpc Facility External Planned Provider: [facility], MEDICARE REHAB BED DCP follow-up note: CM SPOKE TO RAUL OF THE [facility], THEY ARE STILL WAITING ON INSURANCE AUTHORIZATION FROM PT'S INSURANCE COMPANY. CM RECEIVED MESSAGE FROM KENYATTA URENA PATIENT PATHWAYS, PT HAS BEEN ACCEPTED FOR OUTPATIENT DIALYSIS, MWF, 0745AM AT [facility]. PT CAN START ON 05-23-18. CM NOTIFIED RAUL OF THE [facility]. CM WAITING ADMISSION DETERMINATION FROM THE [facility] FOR REHAB, INSURANCE AUTHORIZATION FOR REHAB SERVICES FROM PT'S INSURANCE. OUTPATIENT DIALYSIS CLINIC ARRANGEMENT COMPLETED FOR [facility], MWF, 0745AM, START DATE 05-23-18 IF REHAB PLACEMENT IS SECURED. Markie Burnette CASE MANAGEMENT DCP- Discharge Planning Updated by [id number]: Markie Burnette on 05/19/18 3:[address] Patient Name: KENNY CATALANB Encounter No: [id number] : 1965 Primary Insurance: [facility] [employer] [employer] Anticipated DC Date: Planned Disposition: Fpc Facility External Planned Provider: [facility], MEDICARE REHAB BED DCP follow-up note: [facility] APPROVED FOR [facility] FACILITY ENTRY FOR 60 DAYS OF REHAB. CM FAXED UPDATE TO THE [facility] [employer] AT [phone]. CM SPOKE TO KENYATTA URENA [facility]IENT [facility] WHO WILL CHECK ON OUTPATIENT DIALYSIS CLINIC ACCEPTANCE. CM WAITING ADMISSION DETERMINATION FROM [facility], INSURANCE AUTHORIZATION FOR REHAB SERVICES FROM PT'S INSURANCE AND OUTPATIENT [facility]YS[facility] CLIN[facility] PATIENT [facility] COORDINATOR. Markie Burnette CASE MANAGEMENT DCP- Discharge Planning Updated by [id number]: Markie Burnette on 05/16/18 3:[address] Patient Name: KENNY JNOES Encounter No: [id number] : 1965 Primary Insurance: [facility] [employer] [employer] Anticipated DC Date: Planned Disposition: Fpc Facility External Planned Provider: [facility], MEDICARE REHAB BED DCP follow-up note: CM RECEIVED [facility] APPROVAL FOR [facility] FACILITY ENTRY FOR 60 DAYS. CM FAXED UPDATE AND [facility] APPROVAL TO THE [facility] AT [phone]. CM WAITING ADMISSION DETERMINATION FROM THE [facility] FOR REHAB, INSURANCE AUTHORIZATION FOR REHAB SERVICES FROM PT'S INSURANCE AND OUTPATIENT DIALYSIS CLINIC ARRANGEMENT BY [facility] PATIENT PATHWAYS COORDINATOR. DIOR Ocampo DCP- Discharge Planning Updated by [id number]: Markie Burnette on 05/13/18 6:[address] Patient Name: KENNY JONES Encounter No: [id number] : 1965 Primary Insurance: [facility] [employer] [employer] Anticipated DC Date: Planned Disposition: Fpc Facility External Planned Provider: [facility], MEDICARE REHAB BED DCP follow-up note: CM MET WITH PT IN ROOM TO COMPLETE [facility] SCREENING ASSESSMENT. SCREENING FORMS COMPELTED AND SIGNED. CM FAXED TO [facility] AT [phone]. CM WAITING [facility] SCREENING COMPLETION. CM WAITING ADMISSION DETERMINATION FROM THE [facility] FOR REHAB, INSURANCE AUTHORIZATION FOR REHAB SERVICES FROM PT'S INSURANCE AND OUTPATIENT DIALYSIS CLINIC ARRANGEMENT BY [facility] PATIENT PATHWAYS COORDINATOR. DIOR Ocampo DCP- Discharge Planning Updated by [id number]: Markie Burnette on 05/12/18 4:[address] Patient Name: KENNY JONES Encounter No: [id number] : 1965 Primary Insurance: [facility] [employer] [employer] Anticipated DC Date: Planned Disposition: Fpc Facility External Planned Provider: [facility], MEDICARE REHAB BED DCP follow-up note: CM MET WITH PT IN ROOM TO DISCUSS DISCHARGE PLANNING AND NEEDS. PT REPORTS HE CANNOT GO HOME ALONE LIKE THIS AND NEEDS REHAB FIRST. CM DISCUSSED REHAB OPTIONS AND LOCATIONS. PT DOES NOT WANT [facility] CARE AND ASKED FOR THE [facility] FOR REHAB SERVICES. CHOICE LETTER SIGNED FOR THE [facility]. CM ADVISED PT THAT KENYATTA CHRISTOPHER OF PATIENT [facility] WOULD BE IN CONTACT WITH PT REGARDING OUTPATIENT DIALYSIS CLINIC ARRANGEMENTS. PT REPORTS LIVING IN [place] AND HOPES TO BE INDEPENDENT AND RIDING HIS SCOOTER FOR TRANSPORT AFTER REHAB IS COMPLETED. PT REPORTS HIS BROTHER IS ASSISTING WITH CARING FOR PT'S DOG AT HOME AND PAYING PT'S BILLS WITH PT'S CHECK WHILE PT IS IN THE HOSPITAL. PT IS NOT ELIGIBLE FOR FREE TRANSPORT WITH MEDICAID TRANSPORTATION HE IS "[facility]" ONLY. CM FAXED REFERRAL TO THE [facility] [employer] [facility] AT [phone]. CM WAITING ADMISSION DETERMINATION FROM THE [facility] FOR REHAB, INSURANCE AUTHORIZATION FOR REHAB SERVICES FROM PT'S INSURANCE AND OUTPATIENT DIALYSIS CLINIC ARRANGEMENT BY [facility] PATIENT PATHWAYS COORDINATOR. DIOR Ocampo MANAGEMENT DCP- Discharge Planning Updated by [id number]: Markie Burnette on 05/12/18 11:[address] Patient Name: KENNY JONES Encounter No: [id number] : 1965 Primary Insurance: [facility] [employer] [employer] Anticipated DC Date: Planned Disposition: Home DCP follow-up note: CM RECEIVED ORDER FOR OUTPATIENT DIALYSIS AND POSSIBLE REHAB PLACEMENT NEEDS. RN TODD CANTU NOTIFED KENYATTA OF [facility] FOR NEW DAILYSIS CLINIC ARRANGEMENT. CM ATTEMPTED TO MEET WITH PT FOR INITIAL ASSESSMENT OF DISCHARGE NEEDS. PT WAS NOT IN ROOM AT APPROXIMATELY [id number] HOURS. CM TO ATTEMPT ASSESSMENT OF PT AT A LATER TIME. DIOR Ocampo DCP- Discharge Planning Updated by [id number]: Sonia Wyatt on 05/06/18 8:[address] Patient Name: KENNY JONES Admission Status: ER Accout number: [id number] Admission Date: 05-01-2018 : 1965 Admission Diagnosis:TOXIC ENCEPHALOPATHY Attending: HANNAH HOBSON Current LOS: 5 Anticipated DC Date: Planned Disposition: Home Primary Insurance: [facility] [employer] [employer] Discharge Planning Comments: CM met with patient at bedside after obtaining permission. Patient states he was living at home alone. Patient plans to return to his apartment upon discharge. Patient may need rehab before discharge. Patient denies any needs at this time. CM will continue to follow and assist with discharge planning / needs. Spaghetti Machine Operator: Sonia Wyatt DCPIA - Discharge Planning Initial Assessment Updated by [id number]: Sonia Wyatt on 05/06/18 8:59 pm * Is the patient Alert and Oriented? Yes * How many steps to enter\\exit or inside your home? * PCP Deirdre Rose * Pharmacy [facility] * Preadmission Environment Home Alone * ADLs Independent * Equipment None * List name and contact numbers for known caregivers / representatives who currently or will assist patient after discharge: Bryon Jones - Brother - [phone] * Verbal permission to speak to the caregivers and representatives has been obtained from the patient. N/A * Community resources currently utilized None * Additional services required to return to the preadmission environment? No * Can the patient safely return to the preadmission environment? Yes * Has this patient been hospitalized within the prior 30 days at any hospital? Yes Coverage Notice Reviewer: [id number] Lynne Burnette Notice Issued Date-Time: 05/12/2018 13:25 Notice Type: Patient Choice Letter Notice Delivered To: Patient Relationship to Patient: Personnel Adviser Name: Delivery Method: HAND - Hand Delivered [place] Days: Prior Verbal Notification: Recipient Understood Notice: Yes Recipient Signature: Yes Med Rec Note Co-signed by Attending: Coverage Notice Comment: [facility] Reviewer: [id number] Lynne Burnette Notice Issued Date-Time: 05/26/2018 10:10 Notice Type: IM Discharge Notice Notice Delivered To: Patient Relationship to Patient: Personnel Adviser Name: Delivery Method: HAND - Hand Delivered [place] Days: Prior Verbal Notification: Recipient Understood Notice: Yes Recipient Signature: Yes Med Rec Note Co-signed by Attending: Coverage Notice Comment: ANY [facility] FACILITY IN [place] FOR REHAB ONLY. Last DP export: 05/30/18 11:09 a Patient Name: KENNY JONES Page [phone] at 1301 All edits/amendments must be made on the electronic document DICTATION DATE: 05/30/18 1301 RURAL CARRIER: SPENCER 05/30/18 1301 RPT#: [id number] DC DATE: STATUS: ADM IN [facility] [address] [place] [address] END OF REPORT
[2018-05-30] MEDS ORDERED: NORVASC5 MG PO (13:18)
[2018-05-30] MEDS ORDERED: Abilify PO (13:19)
[2018-05-30] MEDS ORDERED: RENAGEL800 MG PO (13:20)
--- NOTE | 2018-05-30 13:40 | NUR ---
PHYSICAL THERAPY IN PT ROOM, PT REQUESTED FOR SOMETHING FOR PAIN, STATES HIS LEGS HURTS. PRN MARLENI GIVEN. PT CURRETNLY SITTING ON THE COUCH. WILL CTM. CL IN REACH.
--- NOTE | 2018-05-30 14:37 | NUR ---
PT ANTICIPATING DC. REMOVED PT CASTRO. CASTRO TIP INTACT, NO DISCOMFORT OR BLEEDING NOTED. PT TOLERATED WELL. PT HAVE 800CC'S IN CASTRO BAG. ASSIST PT BACK IN BED. WILL CPOC. CL IN REACH. BED IN LOW.
--- NOTE | 2018-05-30 14:58 | MORECARE ---
CASE MANAGEMENT DISCHARGE SUMMARY PATIENT: KENNY JONES UNIT: [id number] ADM DATE: 05/01/18 AGE: 52 : 67 SEX: M ROOM/BED: D.210 AUTHOR: MARGE,DOC PHYSICIAN: REFERRING PHYSICIAN: HANNAH HOBSON MD DATE OF SERVICE: 05/30/18 Discharge Plan Patient Name: KENNY JONES Facility: [facility]:[place] : 1965 Planned Disposition: Usp Facility Anticipated Discharge Date: 05/30/18 Discharge Date: Expected LOS: 29 Initial Reviewer: [id number] Initial Review Date: 05/06/2018 Generated: 05/30/18 3:58 pm Comments DCP- Discharge Planning Updated by [id number]: Nasreen Alejandra on 05/30/18 11:[address] RECEIVED A CALL BACK FROM MARCK AT [facility], SHE STATED THAT THEY WOULD ACCEPT THE PATIENT TODAY IF THEY HAD A DATE AND TIME SET UP FOR THE HEMOSPLIT REMOVAL AND ORDERS FOR ANY SPECIAL CARE THAT THEY NEEDED TO PROVIDE TO IT UNTIL IT IS REMOVED. I EXPLAINED THIS TO NANCY AND THAT WE WOULD WORK ON GETTING THOSE TWO THINGS, AND NANCY STATED THAT SHE WOULD PUT IN THE ORDERS. I SPOKE WITH KIMBERLYN SUERO MONOTYPE OPERATOR AND ASKED IF SHE COULD PLEASE CALL [facility] REAL ESTATE DEVELOPMENT MANAGER TO SEE IF THIS COULD BE DONE. SHE AGREED. DCP- Discharge Planning Updated by [id number]: Nasreen Alejandra on 05/30/18 11:[address] SPOKE WITH NANCY CHERRY APN WITH [facility] ABOUT POSSIBILITY OF DISCHARGE. EXPLAINED THAT PER [facility] IT LOOKED LIKE THEY JUST NEEDED TO GET HIS HEMOSPLIT OUT BEFORE DISCHARGE, THAT THE PATIENT WOULD NOT NEED FURTHER DIALYSIS. ALSO EXPLAINED THAT HIS INSURANCE HAD GIVEN AUTHORIZATION FOR SNF [facility]. SHE REQUESTED THAT I FIND OUT IF SURGERY HAD BEEN CONSULTED TO REMOVE IT OR NOT. IT WAS NOTED THERE WAS NO CONSULT FOR SURGERY. CALL PLACED TO GENEVA SHERWOOD APN WITH THE [facility]. SHE STATED THEY WERE GOOD WITH DISCHARGE. SHE STATED THAT THE PATIENT COULD DISCHARGE AND THE HEMOSPLIT COULD BE PULLED AT THE [facility] AT A LATER DATE. THIS WAS RELAYED TO NANCY, AND PER HER REQUEST, A CALL WAS PLACED TO THE [facility] TO VERIFY IF THIS WOULD BE OK SINCE THE PATIENT WILL NOT BE REQUIRING DIALYSIS. MARCK AT [facility] STATED SHE WOULD HAVE TO SPEAK TO HER QUALITY TESTER AND CALL ME BACK. STATING THAT RIGHT NOW SHE WAS AT LUNCH. WILL WAIT FOR A RETURN CALL WITH DETERMINATION. DCP- Discharge Planning Updated by [id number]: Markie Burnette on 05/30/18 7:[address] Patient Name: KENNY JONES Encounter No: [id number] : 1965 Primary Insurance: [facility] MEDICARE SOLUTIONS Anticipated DC Date: Planned Disposition: [facility] Facility External Planned Provider: [facility], MEDICARE REHAB BED DCP follow-up note: CM FAXED UPDATE TO [facility] AT [phone]. [facility] HAS APPROVED PT FOR REHAB ENTRY FOR UP TO 60 DAYS. PT HAS BEEN ACCEPTED FOR OUTPATIENT DIALYSIS, MWF, 0745AM AT [facility]. NOTIFCarol YOU OF [facility], , OF DISCHARGE DAY WHEN KNOWN TO ENSURE PT HAS START DATE AT OUTPATIENT DIALYSIS CLINIC. FOR DISCHARGE, FAX DISCHARGE INFORMATION TO [facility] AT [phone], NURSE REPORT TO BE CALLED TO [facility] AT [phone]. [facility] TO ARRANGE VAN TRANSPORTATION FOR DISCHARGE TO REHAB. Markie Burnette, CASE MANAGEMENT DCP- Discharge Planning Updated by [id number]: Markie Burnette on 05/27/18 3:[address] Patient Name: KENNY JONES Encounter No: [id number] : 1965 Primary Insurance: [facility] MEDICARE SOLUTIONS Anticipated DC Date: Planned Disposition: [facility] Facility External Planned Provider: [facility], MEDICARE REHAB BED DCP follow-up note: CM RECEVIED CALL FROM MARCK OF [facility], THEY WILL ACCEPT PT FOR REHAB AND HAVE INSURANCE AUTHORIZATION TO ACCEPT PT. THEY WILL ACCEPT PT FOR REHAB WHEN READY FOR DISCHARGE. PT NOTIFIED AND IN AGREEMENT WITH REHAB AT [facility]. [facility] HAS APPROVED PT FOR REHAB ENTRY FOR UP TO 60 DAYS. PT HAS BEEN ACCEPTED FOR OUTPATIENT DIALYSIS, MWF, 0745AM AT [facility]. NOTIFCarol YOU OF [facility], , OF DISCHARGE DAY WHEN KNOWN TO ENSURE PT HAS START DATE AT OUTPATIENT DIALYSIS CLINIC. FOR DISCHARGE, FAX DISCHARGE INFORMATION TO [facility] AT [phone], NURSE REPORT TO BE CALLED TO [facility] AT [phone]. [facility] TO ARRANGE VAN TRANSPORTATION FOR DISCHARGE TO REHAB. Markie Burnette DCP- Discharge Planning Updated by [id number]: Markie Burnette on 05/27/18 9:[address] Patient Name: KENNY JONES Encounter No: [id number] : 1965 Primary Insurance: [facility] MEDICARE SOLUTIONS Anticipated DC Date: Planned Disposition: [facility]sp Facility External Planned Provider: [facility] ACCEPTING FAC[facility], MEDICARE REHAB BED DCP follow-up note: CM RECEIVED CALL FROM MARCK OF [facility], , WHO ASKED CM FOR UPDATE AND THEY WILL DISCUSS PT IN ADMISSIONS STAFF MEETING TODAY FOR REHAB AT [facility]. CM FAXED UPDATE REQUESTED WITH LAST 5 DAYS OF NURSES NOTES TO [facility] AT [phone]. PT HAS BEEN DECLINED AT [facility], [facility], [facility], [facility] AND [facility]. [facility] HAS APPROVED PT FOR REHAB ENTRY FOR UP TO 60 DAYS. PT HAS BEEN ACCEPTED FOR OUTPATIENT DIALYSIS, MWF, 0745AM AT [facility]. CM WAITING ADMISSION DETERMINATIONS FROM [facility] AND [facility]. Markie Burnette, CASE MANAGEMENT Appended by Markie Burnette on 05/27/2018 10:02 LOSS PREVENTION LEAD: CM FAXED UPDATED INFORMATION TO [facility] AND [facility]. CM FAXED PSYCHIATRIC CONSULTATION TO [facility] FOR REVIEW. CM WAITING ADMISSION DETERMINATIONS FROM [facility], [facility] AND [facility] FOR REHAB SERVICES. Markie Burnette, CASE MANAGEMENT DCP- Discharge Planning Updated by [id number]: Markie Burnette on 05/26/18 2:[address] Patient Name: KENNY JONES Encounter No: [id number] : 1965 Primary Insurance: [facility] MEDICARE SOLUTIONS Anticipated DC Date: Planned Disposition: [facility] Facility External Planned Provider: [facility] DCP follow-up note: CM REVIEWED CHART, FAXED UPDATE TO [facility] FOR REHAB PLACEMENT REQUEST, . CM FAXED REFERRAL TO [facility] FOR REHAB REQUEST, . CM FAXED UPDATE TO [facility] AT [phone]. CM FAXED REFERRAL TO [facility] [place] AT [phone]. PT HAS BEEN DECLINED AT THE [facility]. [facility] HAS APPROVED PT FOR REHAB ENTRY FOR UP TO 60 DAYS. PT HAS BEEN ACCEPTED FOR OUTPATIENT DIALYSIS, MWF, 0745AM AT [facility]. CM WAITING ADMISSION DETERMINATIONS FROM [facility] AND [facility]. Markie Burnette, CASE MANAGEMENT Appended by Markie Burnette on 05/26/2018 10:52 LOSS PREVENTION LEAD: CM SPOKE TO PT IN ROOM, DISCUSSED NEED FOR REHAB, DECLINATIONS SO FAR. PT SIGNED CONSENT FOR ANY INTERMEDIATE FOR REHAB IN [place]. CM RECEIVED CALL FROM SHAILESH URENA [facility] WHO DECLINED PT. CM RECEIVED CALL FROM [facility] WHO DECLINED PT. CM RECEIVED CALL FROM [facility] WHO DECLINED PT. CM RECEIVED CALL FROM [facility] WHO IS EVALUATING FOR REHAB PLACEMENT. PT HAS BEEN DECLINED AT THE [facility] AND [facility]. [facility] HAS APPROVED PT FOR REHAB ENTRY FOR UP TO 60 DAYS. PT HAS BEEN ACCEPTED FOR OUTPATIENT DIALYSIS, MWF, 0745AM AT [facility]. CM WAITING ADMISSION DETERMINATIONS FROM [facility], [facility] AND [facility]. Markie Burnette, CASE MANAGEMENT Appended by Markie Burnette on 05/26/2018 11:53 LOSS PREVENTION LEAD: CM RECEIVED CALL FROM [facility] OF [facility] WHO REQUESTED TODAYS' MAR, ALL NURSES NOTES AND ASKED IF PT HAS CHEST TUBE AND HAD PSYCH EVALUATION FOR SUICIDAL IDEATIONS. CM EXPLAINED PT'S CHEST TUBE HAD BEEN REMOVED AND PT DID NOT COME IN FOR SUICIDAL IDEATIONS, BUT DOES HAVE HISTORY. CM FAXED REQUESTED INFORMATION AND SPOKE TO PT IN ROOM. PT REPORTS HE ALWAYS TAKES HIS MEDICINE AT HOME AND HAS BEEN SOBER FOR 4 YEARS AND MADE A BAD DECISION TO DRINK BEER THAT NIGHT. PT DOES NOT REMEMBER HOW MANY BEERS HE DRANK AND STATES HE SHOULD NOT HAVE BEEN DRINKING ANYWAY, MUCH LESS THAN WITH MEDICINE.. PT IS WILLING FOR REHAB PLACEMENT. PT HAS BEEN DECLINED AT THE [facility] AND [facility]. [facility] HAS APPROVED PT FOR REHAB ENTRY FOR UP TO 60 DAYS. PT HAS BEEN ACCEPTED FOR OUTPATIENT DIALYSIS, MWF, 0745AM AT [facility]. CM WAITING ADMISSION DETERMINATIONS FROM [facility], [facility], [facility] AND [facility]. Markie Burnette, CASE MANAGEMENT Appended by Markie Burnette on 05/26/2018 15:36 LOSS PREVENTION LEAD: CM RECEIVED CALL FROM [facility] OF [facility] WHO DECLINED PT REPORTING THEY CANNOT MEET HIS NEEDS. PT HAS BEEN DECLINED AT [facility], [facility], [facility] AND [facility]. [facility] HAS APPROVED PT FOR REHAB ENTRY FOR UP TO 60 DAYS. PT HAS BEEN ACCEPTED FOR OUTPATIENT DIALYSIS, MWF, 0745AM AT [facility]. CM WAITING ADMISSION DETERMINATIONS FROM [facility] AND [facility]. DIOR Ocampo DCP- Discharge Planning Updated by [id number]: Jazmine Conroy on 05/24/18 12:[address] Patient Name: KENNY Carlo JONES Admission Status: ER Accout number: [id number] Admission Date: 05-01-2018 : 1965 Admission Diagnosis:TOXIC ENCEPHALOPATHY Attending: HANNAH HOBSON Current LOS: 23 Anticipated DC Date: Planned Disposition: [facility] Facility Primary Insurance: [facility] MEDICARE SOLUTIONS Discharge Planning Comments: CM CALLED AND LEFT MSG WITH [facility] AND FAXED REFERRAL PAPERS. WAITING FOR CALL BACK FOR DETERMINATION. Web Applications Administrator: Jazmine Conroy DCP- Discharge Planning Updated by [id number]: Markie Burnette on 05/23/18 7:[address] Patient Name: KENNY CATALANB Encounter No: [id number] : 1965 Primary Insurance: [facility] MEDICARE SOLUTIONS Anticipated DC Date: Planned Disposition: [facility] Facility External Planned Provider:[facility], MEDICARE REHAB BED DCP follow-up note: CM FAXED UPDATE TO [facility], , FOR REHAB REQUEST. CM WAITING ADMISSION DETERMINATION FROM [facility] FOR REHAB, INSURANCE AUTHORIZATION FOR REHAB SERVICES FROM PT'S INSURANCE. OUTPATIENT DIALYSIS CLINIC ARRANGEMENT COMPLETED FOR [facility], MWF, 0745AM, START DATE 05-23-18 IF REHAB PLACEMENT IS SECURED. DIOR Ocampo DCP- Discharge Planning Updated by [id number]: Markie Burnette on 05/20/18 1:[address] Patient Name: KENNY JONES Encounter No: [id number] : 1965 Primary Insurance: [facility] MEDICARE SOLUTIONS Anticipated DC Date: Planned Disposition: [facility] Facility External Planned Provider: [facility], MEDICARE REHAB BED DCP follow-up note: CM SPOKE TO [facility] OF [facility], THEY ARE STILL WAITING ON INSURANCE AUTHORIZATION FROM PT'S INSURANCE COMPANY. CM RECEIVED MESSAGE FROM KENYATTA URENA [facility], PT HAS BEEN ACCEPTED FOR OUTPATIENT DIALYSIS, MWF, 0745AM AT [facility]. PT CAN START ON 05-23-18. CM NOTIFIED [facility] OF [facility]. CM WAITING ADMISSION DETERMINATION FROM [facility] FOR REHAB, INSURANCE AUTHORIZATION FOR REHAB SERVICES FROM PT'S INSURANCE. OUTPATIENT DIALYSIS CLINIC ARRANGEMENT COMPLETED FOR [facility], MWF, 0745AM, START DATE 05-23-18 IF REHAB PLACEMENT IS SECURED. Markie Burnette CASE MANAGEMENT DCP- Discharge Planning Updated by [id number]: Markie Burnette on 05/19/18 3:[address] Patient Name: KENNY JONES Encounter No: [id number] : 1965 Primary Insurance: [facility] MEDICARE SOLUTIONS Anticipated DC Date: Planned Disposition: [facility] Facility External Planned Provider: [facility], MEDICARE REHAB BED DCP follow-up note: [facility] APPROVED FOR INTERMEDIATE FACILITY ENTRY FOR 60 DAYS OF REHAB. CM FAXED UPDATE TO [facility] AT [phone]. CM SPOKE TO KENYATTA OF [facility] WHO WILL CHECK ON OUTPATIENT DIALYSIS CLINIC ACCEPTANCE. CM WAITING ADMISSION DETERMINATION FROM [facility] FOR REHAB, INSURANCE AUTHORIZATION FOR REHAB SERVICES FROM PT'S INSURANCE AND OUTPATIENT DIALYSIS CLINIC ARRANGEMENT BY [facility]IENT [facility] COORDINATOR. Markie Burnette CASE MANAGEMENT DCP- Discharge Planning Updated by [id number]: Markie Burnette on 05/16/18 3:[address] Patient Name: KENNY JONES Encounter No: [id number] : 1965 Primary Insurance: [facility] MEDICARE SOLUTIONS Anticipated DC Date: Planned Disposition: [facility] Facility External Planned Provider: [facility], MEDICARE REHAB BED DCP follow-up note: CM RECEIVED [facility] APPROVAL FOR INTERMEDIATE FACILITY ENTRY FOR 60 DAYS. CM FAXED UPDATE AND [facility] APPROVAL TO [facility] AT [phone]. CM WAITING ADMISSION DETERMINATION FROM [facility] FOR REHAB, INSURANCE AUTHORIZATION FOR REHAB SERVICES FROM PT'S INSURANCE AND OUTPATIENT DIALYSIS CLINIC ARRANGEMENT BY [facility] PATIENT PATHWAYS COORDINATOR. DIOR Ocampo MANAGEMENT DCP- Discharge Planning Updated by [id number]: Markie Burnette on 05/13/18 6:[address] Patient Name: KENNY JONES Encounter No: [id number] : 1965 Primary Insurance: [facility] MEDICARE SOLUTIONS Anticipated DC Date: Planned Disposition: [facility]sp Facility External Planned Provider: [facility], MEDICARE REHAB BED DCP follow-up note: CM MET WITH PT IN ROOM TO COMPLETE [facility] SCREENING ASSESSMENT. SCREENING FORMS COMPELTED AND SIGNED. CM FAXED TO [facility] AT [phone]. CM WAITING [facility] SCREENING COMPLETION. CM WAITING ADMISSION DETERMINATION FROM [facility] FOR REHAB, INSURANCE AUTHORIZATION FOR REHAB SERVICES FROM PT'S INSURANCE AND OUTPATIENT [facility]YSIS CLINIC [facility] COORDINATOR. DIOR Ocampo DCP- Discharge Planning Updated by [id number]: Markie Burnette on 05/12/18 4:[address] Patient Name: KENNY JONES Encounter No: [id number] : 1965 Primary Insurance: [facility] MEDICARE SOLUTIONS Anticipated DC Date: Planned Disposition: [facility]sp Facility External Planned Provider: [facility], MEDICARE REHAB BED DCP follow-up note: CM MET WITH PT IN ROOM TO DISCUSS DISCHARGE PLANNING AND NEEDS. PT REPORTS HE CANNOT GO HOME ALONE LIKE THIS AND NEEDS REHAB FIRST. CM DISCUSSED REHAB OPTIONS AND LOCATIONS. PT DOES NOT WANT [facility] AND ASKED FOR [facility] FOR REHAB SERVICES. CHOICE LETTER SIGNED FOR [facility]. CM ADVISED PT THAT KENYATTA CHRISTOPHER OF [facility] WOULD BE IN CONTACT WITH PT REGARDING OUTPATIENT DIALYSIS CLINIC ARRANGEMENTS. PT REPORTS LIVING IN [place] AND HOPES TO BE INDEPENDENT AND RIDING HIS SCOOTER FOR TRANSPORT AFTER REHAB IS COMPLETED. PT REPORTS HIS BROTHER IS ASSISTING WITH CARING FOR PT'S DOG AT HOME AND PAYING PT'S BILLS WITH PT'S CHECK WHILE PT IS IN THE HOSPITAL. PT IS NOT ELIGIBLE FOR FREE TRANSPORT WITH MEDICAID TRANSPORTATION HE IS "[facility]" ONLY. CM FAXED REFERRAL TO [facility] AT [phone]. CM WAITING ADMISSION DETERMINATION FROM [facility] FOR REHAB, INSURANCE AUTHORIZATION FOR REHAB SERVICES FROM PT'S INSURANCE AND OUTPATIENT DIALYSIS CLINIC ARRANGEMENT BY [facility] COORDINATOR. Markie Burnette, CASE MANAGEMENT DCP- Discharge Planning Updated by [id number]: Markie Burnette on 05/12/18 11:[address] Patient Name: KENNY JONES Encounter No: [id number] : 1965 Primary Insurance: [facility] MEDICARE SOLUTIONS Anticipated DC Date: Planned Disposition: Home DCP follow-up note: CM RECEIVED ORDER FOR OUTPATIENT DIALYSIS AND POSSIBLE REHAB PLACEMENT NEEDS. RN TODD HOUSE NOTIFED KENYATTA OF [facility] FOR NEW DAILYSIS CLINIC ARRANGEMENT. CM ATTEMPTED TO MEET WITH PT FOR INITIAL ASSESSMENT OF DISCHARGE NEEDS. PT WAS NOT IN ROOM AT APPROXIMATELY [id number] HOURS. CM TO ATTEMPT ASSESSMENT OF PT AT A LATER TIME. Markie Burnette CASE MANAGEMENT DCP- Discharge Planning Updated by [id number]: Sonia Wyatt on 05/06/18 8:[address] Patient Name: KENNY JONES Admission Status: ER Accout number: [id number] Admission Date: 05-01-2018 : 1965 Admission Diagnosis:TOXIC ENCEPHALOPATHY Attending: HANNAH HOBSON Current LOS: 5 Anticipated DC Date: Planned Disposition: Home Primary Insurance: [facility] MEDICARE SOLUTIONS Discharge Planning Comments: CM met with patient at bedside after obtaining permission. Patient states he was living at home alone. Patient plans to return to his apartment upon discharge. Patient may need rehab before discharge. Patient denies any needs at this time. CM will continue to follow and assist with discharge planning / needs. Web Applications Administrator: Sonia Wyatt DCPIA - Discharge Planning Initial Assessment Updated by [id number]: Sonia Wyatt on 05/06/18 8:59 pm * Is the patient Alert and Oriented? Yes * How many steps to enter\\exit or inside your home? * PCP Deirdre Rose * Pharmacy [facility] * Preadmission Environment Home Alone * ADLs Independent * Equipment None * List name and contact numbers for known caregivers / representatives who currently or will assist patient after discharge: Bryon Jones - Brother - [phone] * Verbal permission to speak to the caregivers and representatives has been obtained from the patient. N/A * Community resources currently utilized None * Additional services required to return to the preadmission environment? No * Can the patient safely return to the preadmission environment? Yes * Has this patient been hospitalized within the prior 30 days at any hospital? Yes Coverage Notice Reviewer: [id number] Lynne Burnette Notice Issued Date-Time: 05/12/2018 13:25 Notice Type: Patient Choice Letter Notice Delivered To: Patient Relationship to Patient: Newsroom Intern Name: Delivery Method: HAND - Hand Delivered [place] Days: Prior Verbal Notification: Recipient Understood Notice: Yes Recipient Signature: Yes Med Rec Note Co-signed by Attending: Coverage Notice Comment: [facility] Reviewer: [id number] Lynne Burnette Notice Issued Date-Time: 05/26/2018 10:10 Notice Type: IM Discharge Notice Notice Delivered To: Patient Relationship to Patient: Newsroom Intern Name: Delivery Method: HAND - Hand Delivered [place] Days: Prior Verbal Notification: Recipient Understood Notice: Yes Recipient Signature: Yes Med Rec Note Co-signed by Attending: Coverage Notice Comment: ANY INTERMEDIATE FACILITY IN [place] FOR REHAB ONLY. Last DP export: 05/30/18 12:01 p Patient Name: KENNY JONES Page [id number] at 1458 All edits/amendments must be made on the electronic document DICTATION DATE: 05/30/181457 DINKEY ENGINE MECHANIC: SPENCER 05/30/181457 RPT#: [id number] DC DATE: STATUS: ADM IN [facility] [address] [place] [address] END OF REPORT
--- NOTE | 2018-05-30 15:06 | MORECARE ---
CASE MANAGEMENT DISCHARGE SUMMARY PATIENT: KENNY JONES UNIT: [id number] ADM DATE: 05/01/18 AGE: 52 : 67 SEX: M ROOM/BED: D.2102 AUTHOR: MARGE,DOC PHYSICIAN: REFERRING PHYSICIAN: HANNAH HOBSON MD DATE OF SERVICE: 05/30/18 Discharge Plan Patient Name: KENNY JONES Facility: [facility]:[place] : 1965 Planned Disposition: Custodial Facility Anticipated Discharge Date: 05/30/18 Discharge Date: Expected LOS: 29 Initial Reviewer: [id number] Initial Review Date: 05/06/2018 Generated: 05/30/18 4:06 pm Comments DCP- Discharge Planning Updated by [id number]: Nasreen Alejandra on 05/30/18 11:[address] RECEIVED A CALL BACK FROM MARCK AT [facility], SHE STATED THAT THEY WOULD ACCEPT THE PATIENT TODAY IF THEY HAD A DATE AND TIME SET UP FOR THE HEMOSPLIT REMOVAL AND ORDERS FOR ANY SPECIAL CARE THAT THEY NEEDED TO PROVIDE TO IT UNTIL IT IS REMOVED. I EXPLAINED THIS TO NANCY AND THAT WE WOULD WORK ON GETTING THOSE TWO THINGS, AND NANCY STATED THAT SHE WOULD PUT IN THE ORDERS. I SPOKE WITH KIMBERLYN SUERO MANAGER OF ADMINISTRATION AND ASKED IF SHE COULD PLEASE CALL [facility] TO SEE IF THIS COULD BE DONE. SHE AGREED. DCP- Discharge Planning Updated by [id number]: Nasreen Alejandra on 05/30/18 11:[address] SPOKE WITH NANCY CHERRY APN WITH [facility] ABOUT POSSIBILITY OF DISCHARGE. EXPLAINED THAT PER RENAL IT LOOKED LIKE THEY JUST NEEDED TO GET HIS HEMOSPLIT OUT BEFORE DISCHARGE, THAT THE PATIENT WOULD NOT NEED FURTHER DIALYSIS. ALSO EXPLAINED THAT HIS INSURANCE HAD GIVEN AUTHORIZATION FOR SNF [facility]. SHE REQUESTED THAT I FIND OUT IF SURGERY HAD BEEN CONSULTED TO REMOVE IT OR NOT. IT WAS NOTED THERE WAS NO CONSULT FOR SURGERY. CALL PLACED TO GENEVA SHERWOOD APN WITH THE [facility]. SHE STATED THEY WERE GOOD WITH DISCHARGE. SHE STATED THAT THE PATIENT COULD DISCHARGE AND THE HEMOSPLIT COULD BE PULLED AT THE [facility] AT A LATER DATE. THIS WAS RELAYED TO NANCY, AND PER HER REQUEST, A CALL WAS PLACED TO THE [facility] TO VERIFY IF THIS WOULD BE OK SINCE THE PATIENT WILL NOT BE REQUIRING DIALYSIS. MARCK AT [facility] STATED SHE WOULD HAVE TO SPEAK TO HER VICE PRESIDENT OF TALENT ACQUISITION AND CALL ME BACK. STATING THAT RIGHT NOW SHE WAS AT LUNCH. WILL WAIT FOR A RETURN CALL WITH DETERMINATION. DCP- Discharge Planning Updated by [id number]: Markie Burnette on 05/30/18 7:[address] Patient Name: KENNY JONES Encounter No: [id number] : 1965 Primary Insurance: [facility] [employer] Anticipated DC Date: Planned Disposition: Custodial Facility External Planned Provider: [facility], MEDICARE REHAB BED DCP follow-up note: CM FAXED UPDATE TO [facility] AT [phone]. [facility] HAS APPROVED PT FOR REHAB ENTRY FOR UP TO 60 DAYS. PT HAS BEEN ACCEPTED FOR OUTPATIENT DIALYSIS, MWF, 0745AM AT [facility]. NOTIFCarol YOU OF [facility], , OF DISCHARGE DAY WHEN KNOWN TO ENSURE PT HAS START DATE AT OUTPATIENT DIALYSIS CLINIC. FOR DISCHARGE, FAX DISCHARGE INFORMATION TO [facility] AT [phone], NURSE REPORT TO BE CALLED TO [facility] AT [phone]. [facility] TO ARRANGE VAN TRANSPORTATION FOR DISCHARGE TO REHAB. Markie Burnette, CASE MANAGEMENT DCP- Discharge Planning Updated by [id number]: Markie Burnette on 05/27/18 3:[address] Patient Name: KENNY JONES Encounter No: [id number] : 1965 Primary Insurance: [facility] [employer] Anticipated DC Date: Planned Disposition: Custodial Facility External Planned Provider: [facility], MEDICARE REHAB BED DCP follow-up note: CM RECEVIED CALL FROM MARCK OF [facility], THEY WILL ACCEPT PT FOR REHAB AND HAVE INSURANCE AUTHORIZATION TO ACCEPT PT. THEY WILL ACCEPT PT FOR REHAB WHEN READY FOR DISCHARGE. PT NOTIFIED AND IN AGREEMENT WITH REHAB AT [facility]. [facility] HAS APPROVED PT FOR REHAB ENTRY FOR UP TO 60 DAYS. PT HAS BEEN ACCEPTED FOR OUTPATIENT DIALYSIS, MWF, 0745AM AT [facility]. NOTIFCarol YOU OF [facility], , OF DISCHARGE DAY WHEN KNOWN TO ENSURE PT HAS START DATE AT OUTPATIENT DIALYSIS CLINIC. FOR DISCHARGE, FAX DISCHARGE INFORMATION TO [facility] AT [phone], NURSE REPORT TO BE CALLED TO [facility] AT [phone]. [facility] TO ARRANGE VAN TRANSPORTATION FOR DISCHARGE TO REHAB. Markie Burnette DCP- Discharge Planning Updated by [id number]: Markie Burnette on 05/27/18 9:[address] Patient Name: KENNY JONES Encounter No: [id number] : 1965 Primary Insurance: [facility] [employer] Anticipated DC Date: Planned Disposition: Custodial Facility External Planned Provider: [facility], MEDICARE REHAB BED DCP follow-up note: CM RECEIVED CALL FROM MARCK OF [facility], , WHO ASKED CM FOR UPDATE AND THEY WILL DISCUSS PT IN ADMISSIONS STAFF MEETING TODAY FOR REHAB AT [facility]. CM FAXED UPDATE REQUESTED WITH LAST 5 DAYS OF NURSES NOTES TO [facility] AT [phone]. PT HAS BEEN DECLINED AT [facility], [facility], [facility], [facility]. [facility] HAS APPROVED PT FOR REHAB ENTRY FOR UP TO 60 DAYS. PT HAS BEEN ACCEPTED FOR OUTPATIENT DIALYSIS, MWF, 0745AM AT [facility] CM WAITING ADMISSION DETERMINATIONS FROM [facility] AND [facility] [place]. Markie Burnette, CASE MANAGEMENT Appended by Markie Burnette on 05/27/2018 10:02 CORPORATE ACCOUNTANT: CM FAXED UPDATED INFORMATION TO [facility] AND [facility] [place]. CM FAXED PSYCHIATRIC CONSULTATION TO [facility] FOR REVIEW. CM WAITING ADMISSION DETERMINATIONS FROM [facility], [facility] AND [facility] [place] FOR REHAB SERVICES. Markie Burnette, CASE MANAGEMENT DCP- Discharge Planning Updated by [id number]: Markie Burnette on 05/26/18 2:[address] Patient Name: KENNY JONES Encounter No: [id number] : 1965 Primary Insurance: [facility] [employer] Anticipated DC Date: Planned Disposition: Custodial Facility External Planned Provider: [facility] DCP follow-up note: CM REVIEWED CHART, FAXED UPDATE TO [facility] FOR REHAB PLACEMENT REQUEST, . CM FAXED REFERRAL TO [facility] FOR REHAB REQUEST, . CM FAXED UPDATE TO [facility] AT [phone]. CM FAXED REFERRAL TO [facility] AT [phone]. PT HAS BEEN DECLINED AT THE [facility]. [facility] HAS APPROVED PT FOR REHAB ENTRY FOR UP TO 60 DAYS. PT HAS BEEN ACCEPTED FOR OUTPATIENT DIALYSIS, MWF, 0745AM AT [facility]. CM WAITING ADMISSION DETERMINATIONS FROM [facility] AND [facility]. Markie Burnette, CASE MANAGEMENT Appended by Markie Burnette on 05/26/2018 10:52 CORPORATE ACCOUNTANT: CM SPOKE TO PT IN ROOM, DISCUSSED NEED FOR REHAB, DECLINATIONS SO FAR. PT SIGNED CONSENT FOR ANY [facility] FOR REHAB [facility]. CM RECEIVED CALL FROM SHAILESH [facility]RENA [facility] WHO DECLINED PT. CM RECEIVED CALL FROM [facility] WHO DECLINED PT. CM RECEIVED CALL FROM [facility] WHO DECLINED PT. CM RECEIVED CALL FROM [facility] WHO IS EVALUATING FOR REHAB PLACEMENT. PT [facility] BE[facility] AT [facility]. [facility] HAS APPROVED PT FOR REHAB ENTRY FOR UP TO 60 DAYS. PT HAS BEEN ACCEPTED FOR OUTPATIENT DIALYSIS, MWF, 0745AM AT [facility]. CM WAITING ADMISSION DETERMINATIONS FROM [facility], [facility] AND [facility] [place]. Markie Burnette, CASE MANAGEMENT Appended by Markie Burnette on 05/26/2018 11:53 CORPORATE ACCOUNTANT: CM RECEIVED CALL FROM [facility] OF [facility] WHO REQUESTED TODAYS' MAR, ALL NURSES NOTES AND ASKED IF PT HAS CHEST TUBE AND HAD PSYCH EVALUATION FOR SUICIDAL IDEATIONS. CM EXPLAINED PT'S CHEST TUBE HAD BEEN REMOVED AND PT DID NOT COME IN FOR SUICIDAL IDEATIONS, BUT DOES HAVE HISTORY. CM FAXED REQUESTED INFORMATION AND SPOKE TO PT IN ROOM. PT REPORTS HE ALWAYS TAKES HIS MEDICINE AT HOME AND HAS BEEN SOBER FOR 4 YEARS AND MADE A BAD DECISION TO DRINK BEER THAT NIGHT. PT DOES NOT REMEMBER HOW MANY BEERS HE DRANK AND STATES HE SHOULD NOT HAVE BEEN DRINKING ANYWAY, MUCH LESS THAN WITH MEDICINE.. PT IS WILLING FOR REHAB PLACEMENT. PT HAS BEEN DECLINED AT [facility]. [facility] HAS APPROVED PT FOR REHAB ENTRY FOR UP TO 60 DAYS. PT HAS BEEN ACCEPTED FOR OUTPATIENT DIALYSIS, MWF, 0745AM AT [facility]. CM WAITING ADMISSION DETERMINATIONS FROM [facility], [facility], [facility] AND [facility] [place]. Markie Burnette, CASE MANAGEMENT Appended by Markie Burnette on 05/26/2018 15:36 CORPORATE ACCOUNTANT: CM RECEIVED CALL FROM [facility] OF [facility] WHO DECLINED PT REPORTING THEY CANNOT MEET HIS NEEDS. PT HAS BEEN DECLINED AT THE [facility], [facility], [facility] AND [facility]. [facility] HAS APPROVED PT FOR REHAB ENTRY FOR UP TO 60 DAYS. PT HAS BEEN ACCEPTED FOR OUTPATIENT DIALYSIS, MWF, 0745AM AT [facility]. CM WAITING ADMISSION DETERMINATIONS FROM [facility] AND [facility] [place]. DIOR Ocampo DCP- Discharge Planning Updated by [id number]: Jazmine Conroy on 05/24/18 12:[address] Patient Name: KENNY Carlo JONES Admission Status: ER Accout number: [id number] Admission Date: 05-01-2018 : 1965 Admission Diagnosis:TOXIC ENCEPHALOPATHY Attending: HANNAH HOBSON Current LOS: 23 Anticipated DC Date: Planned Disposition: Custodial Facility Primary Insurance: [facility] [employer] Discharge Planning Comments: CM CALLED AND LEFT MSG WITH [facility] AND FAXED REFERRAL PAPERS. WAITING FOR CALL BACK FOR DETERMINATION. [employer] Sales: Jazmine Conroy DCP- Discharge Planning Updated by [id number]: Markie Burnette on 05/23/18 7:[address] Patient Name: KENNY CATALANB Encounter No: [id number] : 1965 Primary Insurance: [facility] [employer] Anticipated DC Date: Planned Disposition: Custodial Facility External Planned Provider:[facility], MEDICARE REHAB BED DCP follow-up note: CM FAXED UPDATE TO [facility], , FOR REHAB REQUEST. CM WAITING ADMISSION DETERMINATION FROM [facility], INSURANCE AUTHORIZATION FOR REHAB SERVICES FROM PT'S INSURANCE. OUTPATIENT DIALYSIS CLINIC ARRANGEMENT COMPLETED FOR [facility], MWF, 0745AM, START DATE 05-23-18 IF REHAB PLACEMENT IS SECURED. DIOR Ocampo DCP- Discharge Planning Updated by [id number]: Markie Burnette on 05/20/18 1:[address] Patient Name: KENNY JONES Encounter No: [id number] : 1965 Primary Insurance: [facility] [employer] Anticipated DC Date: Planned Disposition: Custodial Facility External Planned Provider: [facility], MEDICARE REHAB BED DCP follow-up note: CM SPOKE TO RAUL OF [facility], THEY ARE STILL WAITING ON INSURANCE AUTHORIZATION FROM PT'S INSURANCE COMPANY. CM RECEIVED MESSAGE FROM KENYATTA URENA [facility], PT HAS BEEN ACCEPTED FOR OUTPATIENT DIALYSIS, MWF, 0745AM AT [facility]. PT CAN START ON 05-23-18. CM NOTIFIED RA[facility] OF [facility]. CM WAITING ADMISSION DETERMINATION FROM [facility] FOR RE[facility], INSURANCE AUTHORIZATION FOR REHAB SERVICES FROM PT'S INSURANCE. OUTPATIENT DIALYSIS CLINIC ARRANGEMENT COMPLETED FOR [facility], MWF, 0745AM, START DATE 05-23-18 IF REHAB PLACEMENT IS SECURED. Markie Burnette CASE MANAGEMENT DCP- Discharge Planning Updated by [id number]: Markie Burnette on 05/19/18 3:[address] Patient Name: KENNY JONES Encounter No: [id number] : 1965 Primary Insurance: [facility] [employer] Anticipated DC Date: Planned Disposition: Custodial Facility External Planned Provider: [facility], MEDICARE REHAB BED DCP follow-up note: [facility] APPROVED FOR [facility] FACILITY ENTRY FOR 60 DAYS OF REHAB. CM FAXED UPDATE TO [facility] AT [phone]. CM SPOKE TO KENYATTA OF [facility] WHO WILL CHECK ON OUTPATIENT DIALYSIS CLINIC ACCEPTANCE. CM WAITING ADMISSION DETERMINATION FROM [facility] FOR [facility], INSURANCE AUTHORIZATION FOR REHAB SERVICES FROM PT'S INSURANCE AND OUTPATIENT DIALYSIS CLINIC ARRANGEMENT BY [facility] COORDINATOR. Markie Burnette CASE MANAGEMENT DCP- Discharge Planning Updated by [id number]: Markie Burnette on 05/16/18 3:[address] Patient Name: KENNY JONES Encounter No: [id number] : 1965 Primary Insurance: [facility] [employer] Anticipated DC Date: Planned Disposition: Custodial Facility External Planned Provider: [facility], MEDICARE REHAB BED DCP follow-up note: CM RECEIVED [facility] APPROVAL FOR [facility]DC FACILITY ENTRY FOR 60 DAYS. CM FAXED UPDATE AND [facility] APPROVAL TO [facility] AT [phone]. CM WAITING ADMISSION DETERMINATION FROM [facility], INSURANCE AUTHORIZATION FOR REHAB SERVICES FROM PT'S INSURANCE AND OUTPATIENT DIALYSIS CLINIC ARRANGEMENT BY [facility]IENT [facility] COORDINATOR. DIOR Ocampo MANAGEMENT DCP- Discharge Planning Updated by [id number]: Markie Burnette on 05/13/18 6:[address] Patient Name: KENNY JONES Encounter No: [id number] : 1965 Primary Insurance: [facility] [employer] Anticipated DC Date: Planned Disposition: Custodial Facility External Planned Provider: [facility], MEDICARE REHAB BED DCP follow-up note: CM MET WITH PT IN ROOM TO COMPLETE [facility] SCREENING ASSESSMENT. SCREENING FORMS COMPELTED AND SIGNED. CM FAXED TO [facility] AT [phone]. CM WAITING [facility] SCREENING COMPLETION. CM WAITING ADMISSION DETERMINATION FROM [facility], INSURANCE AUTHORIZATION FOR REHAB SERVICES FROM PT'S INSURANCE AND OUTPATIENT [facility]IALYSIS CLINIC [facility] COORDINATOR. DIOR Ocampo DCP- Discharge Planning Updated by [id number]: Markie Burnette on 05/12/18 4:[address] Patient Name: KENNY JONES Encounter No: [id number] : 1965 Primary Insurance: [facility] [employer] Anticipated DC Date: Planned Disposition: Custodial Facility External Planned Provider: [facility], MEDICARE REHAB BED DCP follow-up note: CM MET WITH PT IN ROOM TO DISCUSS DISCHARGE PLANNING AND NEEDS. PT REPORTS HE CANNOT GO HOME ALONE LIKE THIS AND NEEDS REHAB FIRST. CM DISCUSSED REHAB OPTIONS AND LOCATIONS. PT DOES NOT WANT [facility] AND ASKED FOR [facility] FOR REHAB SERVICES. CHOICE LETTER SIGNED FOR [facility]. CM ADVISED PT THAT KENYATTA CHRISTOPHER OF [facility] WOULD BE IN CONTACT WITH PT REGARDING OUTPATIENT DIALYSIS CLINIC ARRANGEMENTS. PT REPORTS LIVING IN [place] AND HOPES TO BE INDEPENDENT AND RIDING HIS SCOOTER FOR TRANSPORT AFTER REHAB IS COMPLETED. PT REPORTS HIS BROTHER IS ASSISTING WITH CARING FOR PT'S DOG AT HOME AND PAYING PT'S BILLS WITH PT'S CHECK WHILE PT IS IN THE HOSPITAL. PT IS NOT ELIGIBLE FOR FREE TRANSPORT WITH MEDICAID TRANSPORTATION HE IS "QMB" ONLY. CM FAXED REFERRAL TO [facility] AT [phone]. CM WAITING ADMISSION DETERMINATION FROM [facility] FOR REH[facility], INSURANCE AUTHORIZATION FOR REHAB SERVICES FROM PT'S INSURANCE AND OUTPATIENT DIALYSIS CLINIC ARRANGEMENT BY [facility] COORDINATOR. Markie Burnette, CASE MANAGEMENT DCP- Discharge Planning Updated by [id number]: Markie Burnette on 05/12/18 11:[address] Patient Name: KENNY JONES Encounter No: [id number] : 1965 Primary Insurance: [facility] [employer] Anticipated DC Date: Planned Disposition: Home DCP follow-up note: CM RECEIVED ORDER FOR OUTPATIENT DIALYSIS AND POSSIBLE REHAB PLACEMENT NEEDS. RN TODD HOUSE NOTIFED KENYATTA OF [facility] FOR NEW DAILYSIS CLINIC ARRANGEMENT. CM ATTEMPTED TO MEET WITH PT FOR INITIAL ASSESSMENT OF DISCHARGE NEEDS. PT WAS NOT IN ROOM AT APPROXIMATELY [id number] HOURS. CM TO ATTEMPT ASSESSMENT OF PT AT A LATER TIME. Markie Burnette CASE MANAGEMENT DCP- Discharge Planning Updated by [id number]: Sonia Wyatt on 05/06/18 8:[address] Patient Name: KENNY JONES Admission Status: ER Accout number: [id number] Admission Date: 05-01-2018 : 1965 Admission Diagnosis:TOXIC ENCEPHALOPATHY Attending: HANNAH HOBSON Current LOS: 5 Anticipated DC Date: Planned Disposition: Home Primary Insurance: [facility] [employer] Discharge Planning Comments: CM met with patient at bedside after obtaining permission. Patient states he was living at home alone. Patient plans to return to his apartment upon discharge. Patient may need rehab before discharge. Patient denies any needs at this time. CM will continue to follow and assist with discharge planning / needs. [employer]: Sonia Wyatt DCPIA - Discharge Planning Initial Assessment Updated by [id number]: Sonia Wyatt on 05/06/18 8:59 pm * Is the patient Alert and Oriented? Yes * How many steps to enter\\exit or inside your home? * PCP Deirdre Rose * Pharmacy [facility] * Preadmission Environment Home Alone * ADLs Independent * Equipment None * List name and contact numbers for known caregivers / representatives who currently or will assist patient after discharge: Bryon Jones - Brother - [phone] * Verbal permission to speak to the caregivers and representatives has been obtained from the patient. N/A * Community resources currently utilized None * Additional services required to return to the preadmission environment? No * Can the patient safely return to the preadmission environment? Yes * Has this patient been hospitalized within the prior 30 days at any hospital? Yes External Providers External [facility] Next Contact Date: 05/26/2018 Service Request Date: Service Type: Resolution: Reviewer: Comments: Coverage Notice Reviewer: [id number] Lynne Burnette Notice Issued Date-Time: 05/12/2018 13:25 Notice Type: Patient Choice Letter Notice Delivered To: Patient Relationship to Patient: Table Assembler Metal Name: Delivery Method: HAND - Hand Delivered [place] Days: Prior Verbal Notification: Recipient Understood Notice: Yes Recipient Signature: Yes Med Rec Note Co-signed by Attending: Coverage Notice Comment: [facility] Reviewer: [id number] Lynne Burentte Notice Issued Date-Time: 05/26/2018 10:10 Notice Type: IM Discharge Notice Notice Delivered To: Patient Relationship to Patient: Table Assembler Metal Name: Delivery Method: HAND - Hand Delivered [place] Days: Prior Verbal Notification: Recipient Understood Notice: Yes Recipient Signature: Yes Med Rec Note Co-signed by Attending: Coverage Notice Comment: ANY [facility] FACILITY IN [facility] FOR REHAB ONLY. Last DP export: 05/30/18 1:58 p Patient Name: KENNY JONES Page [phone] at 1506 All edits/amendments must be made on the electronic document DICTATION DATE: 05/30/18 1505 HYDRAULIC PILE HAMMER OPERATOR: SPENCER 05/30/18 1505 RPT#: [id number] DC DATE: STATUS: ADM IN [facility] [address] [place] [address] END OF REPORT
--- NOTE | 2018-05-30 15:23 | MORECARE ---
CASE MANAGEMENT DISCHARGE SUMMARY PATIENT: KENNY JONES UNIT: [id number] ADM DATE: 05/01/18 AGE: 52 : 67 SEX: M ROOM/BED: D.2765 AUTHOR: MARGE,DOC PHYSICIAN: REFERRING PHYSICIAN: HANNAH HOBSON MD DATE OF SERVICE: 05/30/18 Discharge Plan Patient Name: KENNY JONES Facility: [facility]:[place] : 1965 Planned Disposition: Intermediate Facility Anticipated Discharge Date: 05/30/18 Discharge Date: Expected LOS: 29 Initial Reviewer: [id number] Initial Review Date: 05/06/2018 Generated: 05/30/18 4:23 pm Comments DCP- Discharge Planning Updated by [id number]: Tammie Burnette on 05/30/18 2:[address] Patient Name: KENNY JONES Encounter No: [id number] : 1965 Primary Insurance: [facility] MEDICARE SOLUTIONS Anticipated DC Date: 05-30-2018 Planned Disposition: Intermediate Facility External Planned Provider: [facility], MEDICARE REHAB BED DCP follow-up note: TODD SPOKE TO PT IN ROOM WHO IS WILLING FOR REHAB AT [facility] TODAY. IMPORTANT MESSAGE FROM MEDICARE PROVIDED AND EXPLAINED. TODD CALLED AND SPOKE TO MARCK WHO WILL ARRANGE VAN FLAT SCREEN WORKER SHORTLY. TODD FAXED DISCHARGE INFORMATION TO [facility] AT [phone]. NURSE REPORT TO BE CALLED TO [facility] AT [facility], . [facility] SENDING VAN TO FLAT SCREEN WORKER PT SHORTLY. TAMMIE BURNETTE, CASE MANAGEMENT DCP- Discharge Planning Updated by [id number]: Nasreen Alejandra on 05/30/18 11:[address] RECEIVED A CALL BACK FROM MARCK AT [facility], SHE STATED THAT THEY WOULD ACCEPT THE PATIENT TODAY IF THEY HAD A DATE AND TIME SET UP FOR THE HEMOSPLIT REMOVAL AND ORDERS FOR ANY SPECIAL CARE THAT THEY NEEDED TO PROVIDE TO IT UNTIL IT IS REMOVED. I EXPLAINED THIS TO NANCY AND THAT WE WOULD WORK ON GETTING THOSE TWO THINGS, AND NANCY STATED THAT SHE WOULD PUT IN THE ORDERS. I SPOKE WITH KIMBERLYN SUERO BRAILLE TEACHER AND ASKED IF SHE COULD PLEASE CALL RENAL PROGRAM DEVELOPMENT MANAGER TO SEE IF THIS COULD BE DONE. SHE AGREED. DCP- Discharge Planning Updated by [id number]: Nasreen Alejandra on 05/30/18 11:[address] SPOKE WITH NANCY CHERRY APN WITH [facility] ABOUT POSSIBILITY OF DISCHARGE. EXPLAINED THAT PER RENAL IT LOOKED LIKE THEY JUST NEEDED TO GET HIS HEMOSPLIT OUT BEFORE DISCHARGE, THAT THE PATIENT WOULD NOT NEED FURTHER DIALYSIS. ALSO EXPLAINED THAT HIS INSURANCE HAD GIVEN AUTHORIZATION FOR SNF [facility]. SHE REQUESTED THAT I FIND OUT IF SURGERY HAD BEEN CONSULTED TO REMOVE IT OR NOT. IT WAS NOTED THERE WAS NO CONSULT FOR SURGERY. CALL PLACED TO GENEVA SHERWOOD APN WITH THE [facility]. SHE STATED THEY WERE GOOD WITH DISCHARGE. SHE STATED THAT THE PATIENT COULD DISCHARGE AND THE HEMOSPLIT COULD BE PULLED AT THE [facility] AT A LATER DATE. THIS WAS RELAYED TO NANCY, AND PER HER REQUEST, A CALL WAS PLACED TO THE [facility] TO VERIFY IF THIS WOULD BE OK SINCE THE PATIENT WILL NOT BE REQUIRING DIALYSIS. MARCK AT [facility] STATED SHE WOULD HAVE TO SPEAK TO HER BIOSECURITY OFFICER AND CALL ME BACK. STATING THAT RIGHT NOW SHE WAS AT LUNCH. WILL WAIT FOR A RETURN CALL WITH DETERMINATION. DCP- Discharge Planning Updated by [id number]: Tammie Burnette on 05/30/18 7:[address] Patient Name: KENNY Matos ROBERT Encounter No: [id number] : 1965 Primary Insurance: [facility] MEDICARE SOLUTIONS Anticipated DC Date: Planned Disposition: Intermediate Facility External Planned Provider: [facility], MEDICARE REHAB BED DCP follow-up note: CM FAXED UPDATE TO [facility] AT [phone]. [facility] HAS APPROVED PT FOR REHAB ENTRY FOR UP TO 60 DAYS. PT HAS BEEN ACCEPTED FOR OUTPATIENT DIALYSIS, MWF, 0745AM AT [facility]. NOTIFCarol YOU OF [facility], , OF DISCHARGE DAY WHEN KNOWN TO ENSURE PT HAS START DATE AT OUTPATIENT DIALYSIS CLINIC. FOR DISCHARGE, FAX DISCHARGE INFORMATION TO [facility] AT [phone], NURSE REPORT TO BE CALLED TO [facility] AT [phone]. [facility] TO ARRANGE VAN TRANSPORTATION FOR DISCHARGE TO REHAB. Tammie Burnette, CASE MANAGEMENT DCP- Discharge Planning Updated by [id number]: Tammie Burnette on 05/27/18 3:[address] Patient Name: KENNY JONES Encounter No: [id number] : 1965 Primary Insurance: [facility] MEDICARE SOLUTIONS Anticipated DC Date: Planned Disposition: Intermediate Facility External Planned Provider: [facility], MEDICARE REHAB BED DCP follow-up note: CM RECEVIED CALL FROM [facility], THEY WILL ACCEPT PT FOR REHAB AND HAVE INSURANCE AUTHORIZATION TO ACCEPT PT. THEY WILL ACCEPT PT FOR REHAB WHEN READY FOR DISCHARGE. PT NOTIFIED AND IN AGREEMENT WITH REHAB AT [facility]. [facility] HAS APPROVED PT FOR REHAB ENTRY FOR UP TO 60 DAYS. PT HAS BEEN ACCEPTED FOR OUTPATIENT DIALYSIS, MWF, 0745AM AT [facility]. NOTIFCarol KENYATTA OF [facility], , OF DISCHARGE DAY WHEN KNOWN TO ENSURE PT HAS START DATE AT OUTPATIENT DIALYSIS CLINIC. FOR DISCHARGE, FAX DISCHARGE INFORMATION TO [facility] AT [phone], NURSE REPORT TO BE CALLED TO [facility] AT [phone]. [facility] TO ARRANGE VAN TRANSPORTATION FOR DISCHARGE TO REHAB. Tammie Burnette DCP- Discharge Planning Updated by [id number]: Tammie Burnette on 05/27/18 9:[address] Patient Name: KENNY JONES Encounter No: [id number] : 1965 Primary Insurance: [facility] MEDICARE SOLUTIONS Anticipated DC Date: Planned Disposition: Intermediate Facility External Planned Provider: FIRST ACCEPTING FACILITY, MEDICARE REHAB BED DCP follow-up note: CM RECEIVED CALL FROM THE [facility], , WHO ASKED CM FOR UPDATE AND THEY WILL DISCUSS PT IN ADMISSIONS STAFF MEETING TODAY FOR REHAB AT [facility]. CM FAXED UPDATE REQUESTED WITH LAST 5 DAYS OF NURSES NOTES TO [facility] AT [phone]. PT HAS BEEN DECLINED AT [facility], [facility], [facility], [facility] AND [facility]. [facility] HAS APPROVED PT FOR REHAB ENTRY FOR UP TO 60 DAYS. PT HAS BEEN ACCEPTED FOR OUTPATIENT DIALYSIS, MWF, 0745AM AT [facility]. CM WAITING ADMISSION DETERMINATIONS FROM [facility] AND [facility]. Tammie Burnette, CASE MANAGEMENT Appended by Tammie Burnette on 05/27/2018 10:02 ECONOMICS CONSULTANT: CM FAXED UPDATED INFORMATION TO [facility] AND [facility]. CM FAXED PSYCHIATRIC CONSULTATION TO [facility] FOR REVIEW. CM WAITING ADMISSION DETERMINATIONS FROM [facility], [facility] AND [facility] FOR REHAB SERVICES. DIOR Ocampo MANAGEMENT DCP- Discharge Planning Updated by [id number]: Tammie Burnette on 05/26/18 2:[address] Patient Name: KENNY JONES Encounter No: [id number] : 1965 Primary Insurance: [facility] MEDICARE SOLUTIONS Anticipated DC Date: Planned Disposition: Intermediate Facility External Planned Provider: FIRST ACCEPTING FACILITY DCP follow-up note: CM REVIEWED CHART, FAXED UPDATE TO [facility] FOR REHAB PLACEMENT REQUEST, . CM FAXED REFERRAL TO [facility] FOR REHAB REQUEST, . CM FAXED UPDATE TO [facility] AT [phone]. CM FAXED REFERRAL TO [facility] AT [phone]. PT HAS BEEN DECLINED AT THE [facility]. [facility] HAS APPROVED PT FOR REHAB ENTRY FOR UP TO 60 DAYS. PT HAS BEEN ACCEPTED FOR OUTPATIENT DIALYSIS, MWF, 0745AM AT [facility]. CM WAITING ADMISSION DETERMINATIONS FROM [facility], [facility] AND [facility]. Tammie Burnette, CASE MANAGEMENT Appended by Tammie Burnette on 05/26/2018 10:52 ECONOMICS CONSULTANT: CM SPOKE TO PT IN ROOM, DISCUSSED NEED FOR REHAB, DECLINATIONS SO FAR. PT SIGNED CONSENT FOR ANY [facility] FOR REHAB IN [place]. CM RECEIVED CALL FROM SHAILESH URENA [facility] WHO DECLINED PT. CM RECEIVED CALL FROM [facility] WHO DECLINED PT. CM RECEIVED CALL FROM NATI URENA [facility] WHO DECLINED PT. CM RECEIVED CALL FROM [facility] WHO IS EVALUATING FOR REHAB PLACEMENT. PT HAS BEEN DECLINED AT [facility], [facility] AND [facility]. [facility] HAS APPROVED PT FOR REHAB ENTRY FOR UP TO 60 DAYS. PT HAS BEEN ACCEPTED FOR OUTPATIENT DIALYSIS, MWF, 0745AM AT [facility]. CM WAITING ADMISSION DETERMINATIONS FROM [facility], [facility], [facility] AND [facility]. Tammie Burnette CASE MANAGEMENT Appended by Tammie Burnette on 05/26/2018 11:53 ECONOMICS CONSULTANT: CM RECEIVED CALL FROM [facility] WHO REQUESTED TODAYS' MAR, ALL NURSES NOTES AND ASKED IF PT HAS CHEST TUBE AND HAD PSYCH EVALUATION FOR SUICIDAL IDEATIONS. CM EXPLAINED PT'S CHEST TUBE HAD BEEN REMOVED AND PT DID NOT COME IN FOR SUICIDAL IDEATIONS, BUT DOES HAVE HISTORY. CM FAXED REQUESTED INFORMATION AND SPOKE TO PT IN ROOM. PT REPORTS HE ALWAYS TAKES HIS MEDICINE AT HOME AND HAS BEEN SOBER FOR 4 YEARS AND MADE A BAD DECISION TO DRINK BEER THAT NIGHT. PT DOES NOT REMEMBER HOW MANY BEERS HE DRANK AND STATES HE SHOULD NOT HAVE BEEN DRINKING ANYWAY, MUCH LESS THAN WITH MEDICINE.. PT IS WILLING FOR REHAB PLACEMENT. PT HAS BEEN DECLINED AT THE [facility] AND [facility]. [facility] HAS APPROVED PT FOR REHAB ENTRY FOR UP TO 60 DAYS. PT HAS BEEN ACCEPTED FOR OUTPATIENT DIALYSIS, MWF, 0745AM AT [facility]. CM WAITING ADMISSION DETERMINATIONS FROM [facility], [facility] AND [facility]. Tammie Burnette, CASE MANAGEMENT Appended by Tammie Burnette on 05/26/2018 15:36 ECONOMICS CONSULTANT: CM RECEIVED CALL FROM [facility] WHO DECLINED PT REPORTING THEY CANNOT MEET HIS NEEDS. PT HAS BEEN DECLINED AT THE [facility] AND [facility]. [facility] HAS APPROVED PT FOR REHAB ENTRY FOR UP TO 60 DAYS. PT HAS BEEN ACCEPTED FOR OUTPATIENT DIALYSIS, MWF, 0745AM AT [facility]. CM WAITING ADMISSION DETERMINATIONS FROM [facility] AND [facility]. Tammie Burnette, CASE MANAGEMENT DCP- Discharge Planning Updated by [id number]: Jazmine Conroy on 05/24/18 12:[address] Patient Name: KENNY JONES Admission Status: ER Accout number: [id number] Admission Date: 05-01-2018 : 1965 Admission Diagnosis:TOXIC ENCEPHALOPATHY Attending: HANNAH HOBSON Current LOS: 23 Anticipated DC Date: Planned Disposition: Intermediate Facility Primary Insurance: [facility] MEDICARE SOLUTIONS Discharge Planning Comments: CM CALLED AND LEFT MSG WITH [facility] AND FAXED REFERRAL PAPERS. WAITING FOR CALL BACK FOR DETERMINATION. Supervisor Ovens: Jazmine Conroy DCP- Discharge Planning Updated by [id number]: Tammie Burnette on 05/23/18 7:[address] Patient Name: KENNY JONES Encounter No: [id number] : 1965 Primary Insurance: [facility] MEDICARE SOLUTIONS Anticipated DC Date: Planned Disposition: Intermediate Facility External Planned Provider:[facility], MEDICARE REHAB BED DCP follow-up note: CM FAXED UPDATE TO [facility], , FOR REHAB REQUEST. CM WAITING ADMISSION DETERMINATION FROM [facility] FOR [facility], INSURANCE AUTHORIZATION FOR REHAB SERVICES FROM PT'S INSURANCE. OUTPATIENT DIALYSIS CLINIC ARRANGEMENT COMPLETED FOR [facility], MWF, 0745AM, START DATE 05-23-18 IF REHAB PLACEMENT IS SECURED. Tammie Burnette CASE MANAGEMENT DCP- Discharge Planning Updated by [id number]: Tammie Burnette on 05/20/18 1:[address] Patient Name: KENNY JONES Encounter No: [id number] : 1965 Primary Insurance: [facility] MEDICARE SOLUTIONS Anticipated DC Date: Planned Disposition: Intermediate Facility External Planned Provider: [facility], MEDICARE REHAB BED DCP follow-up note: CM SPOKE TO RA[facility] OF [facility], THEY ARE STILL WAITING ON INSURANCE AUTHORIZATION FROM PT'S INSURANCE COMPANY. CM RECEIVED MESSAGE FROM KENYATTA OF [facility], PT HAS BEEN ACCEPTED FOR OUTPATIENT DIALYSIS, MWF, 0745AM AT [facility]. PT CAN START ON 05-23-18. CM NOTIFIED [facility] OF [facility]. CM WAITING ADMISSION DETERMINATION FROM [facility] FOR REH[facility], INSURANCE AUTHORIZATION FOR REHAB SERVICES FROM PT'S INSURANCE. OUTPATIENT DIALYSIS CLINIC ARRANGEMENT COMPLETED FOR [facility], MWF, 0745AM, START DATE 05-23-18 IF REHAB PLACEMENT IS SECURED. Tammie Burnette CASE MANAGEMENT DCP- Discharge Planning Updated by [id number]: Tammie Burnette on 05/19/18 3:[address] Patient Name: KENNY JONES Encounter No: [id number] : 1965 Primary Insurance: [facility] MEDICARE SOLUTIONS Anticipated DC Date: Planned Disposition: Intermediate Facility External Planned Provider: [facility], MEDICARE REHAB BED DCP follow-up note: [facility] APPROVED FOR [facility] FACILITY ENTRY FOR 60 DAYS OF REHAB. CM FAXED UPDATE TO [facility] AT [phone]. CM SPOKE TO KENYATTA URENA [facility] WHO WILL CHECK ON OUTPATIENT DIALYSIS CLINIC ACCEPTANCE. CM WAITING ADMISSION DETERMINATION FROM [facility] FOR [facility], INSURANCE AUTHORIZATION FOR REHAB SERVICES FROM PT'S INSURANCE AND OUTPATIENT DIALYSIS CLINIC ARRANGEMENT BY [facility] COORDINATOR. Tammie Burnette CASE MANAGEMENT DCP- Discharge Planning Updated by [id number]: Tammie Burnette on 05/16/18 3:[address] Patient Name: KENNY JONES Encounter No: [id number] : 1965 Primary Insurance: [facility] MEDICARE SOLUTIONS Anticipated DC Date: Planned Disposition: Intermediate Facility External Planned Provider: [facility], MEDICARE REHAB BED DCP follow-up note: CM RECEIVED [facility] APPROVAL FOR [facility] FACILITY ENTRY FOR 60 DAYS. CM FAXED UPDATE AND [facility] APPROVAL TO [facility] AT [phone]. CM WAITING ADMISSION DETERMINATION FROM [facility] FOR [facility], INSURANCE AUTHORIZATION FOR REHAB SERVICES FROM PT'S INSURANCE AND OUTPATIENT DIALYSIS CLINIC ARRANGEMENT BY [facility] COORDINATOR. Tammie Burnette CASE MANAGEMENT DCP- Discharge Planning Updated by [id number]: Tammie Burnette on 05/13/18 6:[address] Patient Name: KENNY JONES Encounter No: [id number] : 1965 Primary Insurance: [facility] MEDICARE SOLUTIONS Anticipated DC Date: Planned Disposition: Intermediate Facility External Planned Provider: [facility], MEDICARE REHAB BED DCP follow-up note: CM MET WITH PT IN ROOM TO COMPLETE [facility] SCREENING ASSESSMENT. SCREENING FORMS COMPELTED AND SIGNED. CM FAXED TO [employer] AT [phone]. CM WAITING [facility] SCREENING COMPLETION. CM WAITING ADMISSION DETERMINATION FROM [facility], INSURANCE AUTHORIZATION FOR REHAB SERVICES FROM PT'S INSURANCE AND OUTPATIENT DIALYSIS CLINIC ARRANGEMENT BY [facility] COORDINATOR. Tammie Burnette CASE MANAGEMENT DCP- Discharge Planning Updated by [id number]: Tammie Burnette on 05/12/18 4:[address] Patient Name: KENNY JONES Encounter No: [id number] : 1965 Primary Insurance: [facility] MEDICARE SOLUTIONS Anticipated DC Date: Planned Disposition: Intermediate Facility External Planned Provider: [facility], MEDICARE REHAB BED DCP follow-up note: CM MET WITH PT IN ROOM TO DISCUSS DISCHARGE PLANNING AND NEEDS. PT REPORTS HE CANNOT GO HOME ALONE LIKE THIS AND NEEDS REHAB FIRST. CM DISCUSSED REHAB OPTIONS AND LOCATIONS. PT DOES NOT WANT [facility] AND ASKED FOR [facility] FOR REHAB SERVICES. CHOICE LETTER SIGNED FOR [facility]. CM ADVISED PT THAT KENYATTA CHRISTOPHER OF [facility] WOULD BE IN CONTACT WITH PT REGARDING OUTPATIENT DIALYSIS CLINIC ARRANGEMENTS. PT REPORTS LIVING IN [place] AND HOPES TO BE INDEPENDENT AND RIDING HIS SCOOTER FOR TRANSPORT AFTER REHAB IS COMPLETED. PT REPORTS HIS BROTHER IS ASSISTING WITH CARING FOR PT'S DOG AT HOME AND PAYING PT'S BILLS WITH PT'S CHECK WHILE PT IS IN THE HOSPITAL. PT IS NOT ELIGIBLE FOR FREE TRANSPORT WITH MEDICAID TRANSPORTATION HE IS "[facility]" ONLY. CM FAXED REFERRAL TO [facility] AT [phone]. CM WAITING ADMISSION DETERMINATION FROM [facility] FOR REHAB, INSURANCE AUTHORIZATION FOR REHAB SERVICES FROM PT'S INSURANCE AND OUTPATIENT DIALYSIS CLINIC ARRANGEMENT BY [facility]IENT PATH[facility] COORDINATOR. Tammie Burnette, CASE MANAGEMENT DCP- Discharge Planning Updated by [id number]: Tammie Burnette on 05/12/18 11:[address] Patient Name: KENNY CATALANB Encounter No: [id number] : 1965 Primary Insurance: [facility] MEDICARE SOLUTIONS Anticipated DC Date: Planned Disposition: Home DCP follow-up note: CM RECEIVED ORDER FOR OUTPATIENT DIALYSIS AND POSSIBLE REHAB PLACEMENT NEEDS. RN TODD HOUSE NOTIFED [facility] OF [facility] FOR NEW DAILYSIS CLINIC ARRANGEMENT. CM ATTEMPTED TO MEET WITH PT FOR INITIAL ASSESSMENT OF DISCHARGE NEEDS. PT WAS NOT IN ROOM AT APPROXIMATELY [id number] HOURS. CM TO ATTEMPT ASSESSMENT OF PT AT A LATER TIME. Tammie Burnette CASE MANAGEMENT DCP- Discharge Planning Updated by [id number]: Sonia Wyatt on 05/06/18 8:[address] Patient Name: KENNY JONES Admission Status: ER Accout number: [id number] Admission Date: 05-01-2018 : 1965 Admission Diagnosis:TOXIC ENCEPHALOPATHY Attending: HANNAH HOBSON Current LOS: 5 Anticipated DC Date: Planned Disposition: Home Primary Insurance: [facility] MEDICARE SOLUTIONS Discharge Planning Comments: CM met with patient at bedside after obtaining permission. Patient states he was living at home alone. Patient plans to return to his apartment upon discharge. Patient may need rehab before discharge. Patient denies any needs at this time. CM will continue to follow and assist with discharge planning / needs. Supervisor Ovens: Sonia Ramsayloren CHAVEZ - Discharge Planning Initial Assessment Updated by [id number]: Sonia Wyatt on 05/06/18 8:59 pm * Is the patient Alert and Oriented? Yes * How many steps to enter\\exit or inside your home? * PCP Deirdre Rose * Pharmacy [facility] * Preadmission Environment Home Alone * ADLs Independent * Equipment None * List name and contact numbers for known caregivers / representatives who currently or will assist patient after discharge: Bryon Jones - - [phone] * Verbal permission to speak to the caregivers and representatives has been obtained from the patient. N/A * Community resources currently utilized None * Additional services required to return to the preadmission environment? No * Can the patient safely return to the preadmission environment? Yes * Has this patient been hospitalized within the prior 30 days at any hospital? Yes Coverage Notice Reviewer: [id number] Burnette Notice Issued Date-Time: 05/12/2018 13:25 Notice Type: Patient Choice Letter Notice Delivered To: Patient Relationship to Patient: Under Water Assistant Name: Delivery Method: HAND - Hand Delivered Sagrario Days: Prior Verbal Notification: Recipient Understood Notice: Yes Recipient Signature: Yes Med Rec Note Co-signed by Attending: Coverage Notice Comment: [facility] Reviewer: [id number] Burnette Notice Issued Date-Time: 05/26/2018 10:10 Notice Type: IM Discharge Notice Notice Delivered To: Patient Relationship to Patient: Under Water Assistant Name: Delivery Method: HAND - Hand Delivered Sagrario Days: Prior Verbal Notification: Recipient Understood Notice: Yes Recipient Signature: Yes Med Rec Note Co-signed by Attending: Coverage Notice Comment: ANY [facility] FACILITY IN [place] FOR REHAB ONLY. Reviewer: [id number] Lynne Burnette Notice Issued Date-Time: 05/30/2018 15:00 Notice Type: IM Discharge Notice Notice Delivered To: Patient Relationship to Patient: Under Water Assistant Name: Delivery Method: HAND - Hand Delivered Sagrario Days: Prior Verbal Notification: Recipient Understood Notice: Yes Recipient Signature: Yes Med Rec Note Co-signed by Attending: Coverage Notice Comment: Last DP export: 05/30/18 2:06 p Patient Name: KENNY JONES Page [id number] at 1523 All edits/amendments must be made on the electronic document DICTATION DATE: 05/30/181521 TRAVEL CONSULTANT: SPENCER 05/30/181521 RPT#: [id number] DC DATE: STATUS: ADM IN [facility] [address] [place] [address] END OF REPORT
--- NOTE | 2018-05-30 15:24 | NUR ---
REMOVED PT IJ TRIALYSIS. CATHETER AND CATHETER TIP INTACT. NO SIGN OF BLEEDING OR DISCOMFORT. PT TOLERATE WELL. PT AWAITING DC. CL IN REACH, BED IN LOW. WILL CTM.
--- NOTE | 2018-05-30 15:57 | NUR ---
[facility] WILL ARRANGE VAN TO COME PICK PT UP.
--- NOTE | 2018-05-30 16:27 | NUR ---
PT DC'D ON A WHEELCHAIR. A VAN WILL PICK PT UP AT THE FRONT ENTRANCE OF THE HOSPITAL. PT HAVE ALL OF HIS PERSONAL BELONGINGS. PT AAOX3, VSS WITH NO S/S OF DISTRESS AT TIME OF DC, PT VOICED UNDERSTANDING OF HIS DC INSTRUCTIONS.
== END 2018-05-30 16:29 | DRG 981 ==
LOC: D.ER 22:30 → D.M2 05-01 03:41 → D.ICU 05-01 03:41 → D.M2 05-10 15:56
PROVIDERS: Emergency Medicine; Family Medicine; Internal Medicine; Internal Medicine Gastroenterology; Internal Medicine Hematology & Oncology; Internal Medicine Nephrology; Internal Medicine Pulmonary Disease; Orthopaedic Surgery; Surgery; ADMIT Internal Medicine Nephrology
PROC: 05H533Z Insertion of Infusion Device into Right Subclavian Vein, Percutaneous Approach (ICD-10-PCS; 2018-05-03)
PROC: 05HM33Z Insertion of Infusion Device into Right Internal Jugular Vein, Percutaneous Approach (ICD-10-PCS; 2018-05-03)
PROC: 0W9930Z Drainage of Right Pleural Cavity with Drainage Device, Percutaneous Approach (ICD-10-PCS; 2018-05-03)
PROC: 5A1D70Z Performance of Urinary Filtration, Intermittent, Less than 6 Hours Per Day (ICD-10-PCS; 2018-05-03)
PROC: 0KNQ0ZZ Release Right Upper Leg Muscle, Open Approach (ICD-10-PCS; 2018-05-03 14:30)
PROC: 0KNQ0ZZ Release Right Upper Leg Muscle, Open Approach (ICD-10-PCS; 2018-05-03 14:30)
PROC: 0JQL0ZZ Repair Right Upper Leg Subcutaneous Tissue and Fascia, Open Approach (ICD-10-PCS; principal; 2018-05-09 10:45)
PROC: 0JH63XZ Insertion of Tunneled Vascular Access Device into Chest Subcutaneous Tissue and Fascia, Percutaneous Approach (ICD-10-PCS; 2018-05-18)
PROC: 02HV33Z Insertion of Infusion Device into Superior Vena Cava, Percutaneous Approach (ICD-10-PCS; 2018-05-18)
PROC: B5181ZA Fluoroscopy of Superior Vena Cava using Low Osmolar Contrast, Guidance (ICD-10-PCS; 2018-05-18)
PROC: 0JPT3XZ Removal of Tunneled Vascular Access Device from Trunk Subcutaneous Tissue and Fascia, Percutaneous Approach (ICD-10-PCS; 2018-05-22)
PROC: 0JH63XZ Insertion of Tunneled Vascular Access Device into Chest Subcutaneous Tissue and Fascia, Percutaneous Approach (ICD-10-PCS; 2018-05-22)
PROC: 05PY33Z Removal of Infusion Device from Upper Vein, Percutaneous Approach (ICD-10-PCS; 2018-05-22)
PROC: 05HM33Z Insertion of Infusion Device into Right Internal Jugular Vein, Percutaneous Approach (ICD-10-PCS; 2018-05-22)
PROC: B5131ZA Fluoroscopy of Right Jugular Veins using Low Osmolar Contrast, Guidance (ICD-10-PCS; 2018-05-22)
DX: G92 Toxic encephalopathy (principal); J96.01 Acute respiratory failure with hypoxia; T79.A21A Traumatic compartment syndrome of right lower extremity, initial encounter; N17.9 Acute kidney failure, unspecified; M62.82 Rhabdomyolysis; J93.9 Pneumothorax, unspecified; N39.0 Urinary tract infection, site not specified; T82.590A Other mechanical complication of surgically created arteriovenous fistula, initial encounter; E87.5 Hyperkalemia; B19.20 Unspecified viral hepatitis C without hepatic coma; K21.9 Gastro-esophageal reflux disease without esophagitis; D64.9 Anemia, unspecified; F13.10 Sedative, hypnotic or anxiolytic abuse, uncomplicated; F10.10 Alcohol abuse, uncomplicated; F41.8 Other specified anxiety disorders; F31.9 Bipolar disorder, unspecified; K70.30 Alcoholic cirrhosis of liver without ascites; F20.9 Schizophrenia, unspecified; D69.6 Thrombocytopenia, unspecified; Y83.8 Other surgical procedures as the cause of abnormal reaction of the patient, or of later complication, without mention of misadventure at the time of the procedure

== ENCOUNTER 2018-12-21 08:57 | Emergency (ER) | payer MEDICARE, MEDICAID ==
[~2018-12-21] VITALS: Ht 182.9 cm; Wt 90.9 kg
[~2018-12-21 08:57] MED LIST changes: +ACETAMINOPHEN325 MG PO; +AMITIZA24 MCG PO; +Abilify PO; +BUSPAR 15 MG TA15 MG PO; +KLONOPIN1 MG PO; +LINZESS145 MCG PO; +LISINOPRIL10 MG PO; +NORVASC5 MG PO; +RENAGEL800 MG PO; +RENVELA800 MG PO; +SEROQUEL XR400 M1 PO; +TRULANCE3 MG PO
[2018-12-21 09:33] VITALS: Ht 182.9 cm; Wt 90.9 kg
[2018-12-21] MEDS ORDERED: LEXAPRO10 MG PO (09:35)
[2018-12-21] MEDS ORDERED: WARFARIN (09:36)
[2018-12-21 09:49] LABS: EOSINOPHILS 5.7 % (0-7); HEMATOCRIT 36.4 % (42.0-54.0); HEMOGLOBIN 13.4 g/dL (13.5-17.5); LYMPHOCYTES 30.1 % (15-50); MCH 32.5 pg (26.0-34.0); MCHC 36.8 g/dL (31.0-37.0); MCV 88.3 fL (80.0-100.0); MEAN PLATELET VOLUME 10.5 fL (7.4-10.4); MONOCYTES 9.5 % (2-11); NEUTROPHILS 53.7 % (40-80); PLATELET COUNT 173 10x3/uL (130-400); RBC 4.12 10x6/uL (4.20-6.10); RDW 15.1 % (11.5-14.5); WBC 3.9 10x3/uL (4.8-10.8)
[2018-12-21 10:01] LABS: ALBUMIN 3.7 g/dL (3.4-5.0); ALKALINE PHOSPHATASE 95 U/L (46-116); ALT (SGPT) 23 U/L (10-68); BILIRUBIN - TOTAL 0.48 mg/dL (0.2-1.3); CALC OSMOLALITY 276 mosm/kg (275-300); CALCIUM 8.7 mg/dL (8.5-10.1); CARBON DIOXIDE 21.1 mmol/L (21.0-32.0); CHLORIDE - SERUM 104 mmol/L (98-107); CREATININE - SERUM 1.6 mg/dL (0.6-1.3); GLUCOSE 110 mg/dL (74-106); POTASSIUM - SERUM 3.5 mmol/L (3.5-5.1); PROTEIN - SERUM 7.5 g/dL (6.4-8.2); SODIUM 139 mmol/L (136-145); UREA NITROGEN 6 mg/dL (7-18); eGFR NON AFRICAN AMERICAN 48 mL/min (90-120)
[2018-12-21 10:11] LABS: CKMB 0.9 U/L (0.0-3.6); CREATINE KINASE 168 UL (21-232); TROPONIN-I < 0.017 ng/mL (0.000-0.060)
--- NOTE | 2018-12-21 10:50 | NUR ---
DR LARSON NOTIFIED AND REVIEWED PT'S BEHAVIOR AND ASSESSMENT RESULTS. PT IS A LOW RISK PER DR LARSON. DR LARSON STATED TO GIVE REWOURCES TO PT AT TIME OF DISCHARGE. NO FURTHER ORDERS AT THIS TIME. RESOURCES REVIEWED WITH PT AND HE VERBALIZED UNDERSTANDING. PT VEHEMENTLY DENIES ANY DESIRE TO HARM SELF AT THIS TIME.
[2018-12-21] MEDS ORDERED: PHENERGAN25 MG RC (11:11)
[2018-12-21] MEDS ORDERED: ULTRAM50 MG PO (11:12)
[2018-12-21 11:26] VITALS: BP 102/75
--- NOTE | 2019-01-16 14:42 | NUR ---
EMERGENCY CASE TO OR OPENED NO TIME TO COUNT, PLAN PER POLICY TO GET XRAY AT END OF CASE. FOR MEDICAL SURGICAL REASONS, PATIENT LEFT OPEN AND PACKED WITH LAPS. SURGERNS BEGAIN PACKING BEFORE XRAY TAKEN. PER DR AGUILLON WE WILL GET XRAY AFTER NEXT SURGERY ON THE PATIENT.
--- NOTE | 2019-01-16 17:04 | NUR ---
AND DR CONOR MULLINS BEGAN CASE, TOOK OVER CASE. LEFT FEMORAL ARTLINE REMOVED AT END OF CASE BY DR AGUILLON, PRESSURE HELD. TRIPLE LUMEN STARTED BY DR NICHOLS END OF CASE RIGHT NECK LINE. NEW ARTERIAL LINE STARTED BY DR AGUILLON. RIGHT WRIST.
== END 2018-12-21 11:25 | disposition home or self-care (01) ==
LOC: D.ER 08:57
PROVIDERS: Emergency Medicine
DX: R07.9 Chest pain, unspecified (principal); R11.10 Vomiting, unspecified; R10.9 Unspecified abdominal pain

== ENCOUNTER 2019-01-16 12:05 | Inpatient (IN) | payer MEDICARE ==
[~2019-01-16] VITALS: Ht 185.4 cm; Wt 109.2 kg
[2019-01-16] VITALS (45 sets, daily range): BP systolic 71–145; BP diastolic 35–89; BMI 33.5
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
--- NOTE | ~2019-01-16 | OP ---
PATIENT NAME: KENNY JONES MEDICAL RECORD: [id number] :67 LOCATION:D.[facility] D.2306 ADMISSION DATE:01/16/19 SURGEON: ROSANNE AGUILLON MD DATE OF OPERATION: 01/23/2019 PREOPERATIVE DIAGNOSES: 1. Open abdomen. 2. Septic shock. 3. Acute renal failure. 4. Outdated central venous line. 5. Immobility, at high risk for lower extremity deep vein thrombosis. POSTOPERATIVE DIAGNOSES: 1. Open abdomen. 2. Septic shock. 3. Acute renal failure. 4. Outdated central venous line. 5. Immobility, at high risk for lower extremity deep vein thrombosis. 6. 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 PROCEDURES: 1. [place] IVC placement under fluoroscopic guidance. 2. Inferior cavogram and fluoroscopic guidance. 3. Immediate surgeon interpretation of the radiographic images. 4. Insertion of right internal jugular Trialysis catheter. 5. Insertion of right internal jugular central venous line. 6. Abdominal exploration with unpacking of the abdomen. 7. Abdominal lavage. 8. Damage control closure. SURGEON: Rosanne Aguillon MD FAMILY RESOURCE SPECIALIST: None. BLOOD LOSS: Please see the anesthesia sheet. The central venous line is outdated. The patient is likely going to require dialysis. For this reason, a Trialysis catheter was placed. OPERATIVE COURSE: The patient was conveyed to the operating room electively on 01/23/2019. General anesthesia was induced by the anesthesia staff. The right neck was sterilely prepped and draped. I percutaneously accessed the right internal jugular vein in an antegrade fashion. A guidewire passed easily. A small skin anna was accomplished. A vessel dilator was introduced. Through the vessel dilator, a Glidewire was advanced. No radiologist was present. Static and cine images were obtained and are interpreted by the surgeon. These images are kept in the PACS system. The Glidewire was advanced down the vena cava. I was unable to "park" the tip of the 0.035 Glidewire in either iliac vein. I advanced the dilator sheath into the inferior vena cava. An inferior venacavogram was performed. There was a large round thrombus at the inferior aspect of the inferior vena cava and this was almost occlusive. I took out the dilator and the Glidewire, advanced a [place] filter and deployed OPERATIVE REPORT [id number] KENNY JONES TIM the [place] filter below the renal veins. I am very thankful that we were able to do this in order to prevent a huge pulmonary thromboembolism, which likely would have a fatal event. The Glidewire was advanced. The sheath was removed. Over the Glidewire, a 16-cm triple-lumen central venous catheter was advanced and then sutured in place. The Glidewire was removed. I then accessed the right internal jugular vein again in an antegrade fashion. A guidewire was advanced. Over the guidewire, a short Trialysis catheter was advanced. This was sutured in place times 3. All lumens flushed easily and aspirated dark, nonpulsatile blood. The right neck was sterilely prepped and draped. I then removed the Ioban. I unpacked the abdomen. I lavaged the abdomen. I then repacked the abdomen and performed a damage control closure utilizing an Ioban. The drain was still in place to drain the urine to prevent soilage in the abdomen. The patient was then conveyed back to the intensive care unit in a critical condition. TRANSINT:[id number] Voice Confirmation ID: [id number] DOCUMENT ID: [id number] ROSANNE AGUILLON MD CC: [id number] DICTATION DATE: 02/09/19723 BANK MESSENGER: 02/09/19 1104 DIS IN 02/01/[address] [facility] [address] [place] [address]
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
[~2019-01-16 12:05] MED LIST changes: +LEXAPRO10 MG PO; +PHENERGAN25 MG RC; +WARFARIN
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
--- NOTE | 2019-01-16 12:15 | NUR ---
PT INTUBATED BY DR. ROY WITH 7.5 CM. 22 AT LIP. PLACEMENT VERIFIED BY XRAY ET CO2 MONITOR COLOR CHANGE.
[2019-01-16 12:25] LABS: BASOPHILS 0.8 % (0-2); EOSINOPHILS 3.2 % (0-7); HEMATOCRIT 28.9 % (42.0-54.0); HEMOGLOBIN 10.3 g/dL (13.5-17.5); IMMATURE GRANULOCYTES 0.6 % (0-5); LYMPHOCYTES 38.9 % (15-50); MCH 32.4 pg (26.0-34.0); MCHC 35.6 g/dL (31.0-37.0); MCV 90.9 fL (80.0-100.0); MEAN PLATELET VOLUME 9.7 fL (7.4-10.4); MONOCYTES 9.6 % (2-11); NEUTROPHILS 46.9 % (40-80); PLATELET COUNT 177 10x3/uL (130-400); RBC 3.18 10x6/uL (4.20-6.10); RDW 16.8 % (11.5-14.5)
[2019-01-16 12:35] LABS: ALBUMIN 3.2 g/dL (3.4-5.0); BILIRUBIN - TOTAL 0.5 mg/dL (0.2-1.3); CALCIUM 7.8 mg/dL (8.5-10.1); CARBON DIOXIDE 19.7 mmol/L (21.0-32.0); CREATININE - SERUM 1.8 mg/dL (0.6-1.3); PROTEIN - SERUM 6.5 g/dL (6.4-8.2)
[2019-01-16 12:41] LABS: POTASSIUM - SERUM 2.7 mmol/L (3.5-5.1)
[2019-01-16 14:06] LABS: BASOPHILS 0 % (0-2); EOSINOPHILS 1.6 % (0-7); HEMOGLOBIN 11.4 g/dL (13.5-17.5); IMMATURE GRANULOCYTES 0.4 % (0-5); MCH 30.5 pg (26.0-34.0); MCHC 34.5 g/dL (31.0-37.0); MEAN PLATELET VOLUME 8.9 fL (7.4-10.4); MONOCYTES 0.8 % (2-11); NEUTROPHILS 79.2 % (40-80); RBC 3.74 10x6/uL (4.20-6.10); RDW 15.2 % (11.5-14.5)
[2019-01-16 14:07] LABS: MCV 88.2 fL (80.0-100.0); PLATELET COUNT 85 10x3/uL (130-400); WBC 2.5 10x3/uL (4.8-10.8)
[2019-01-16 14:17] LABS: INR 1.55 (0.85-1.17)
[2019-01-16 14:18] LABS: APTT 48.9 SECONDS (22.8-39.4)
[2019-01-16 14:52] LABS: PLATELET ESTIMATE DECREASED
--- NOTE | 2019-01-16 19:00 | NUR ---
PT ASSESSMENT COMPLETED AT THIS TIME. dR. AGUILLON AT BEDSIDE AND ADVISED TO CALL HIM WITH NEXT LAB RESULTS
[2019-01-16 19:58] LABS: HEMATOCRIT 35.3 % (42.0-54.0); HEMOGLOBIN 12.6 g/dL (13.5-17.5)
[2019-01-16 20:31] LABS: PROTIME 21.2 SECONDS (11.6-15.0)
[2019-01-16 20:32] LABS: INR 1.91 (0.85-1.17)
[2019-01-16 20:34] LABS: CALCIUM 8.4 mg/dL (8.5-10.1); CREATININE - SERUM 1.9 mg/dL (0.6-1.3)
[2019-01-16 20:41] LABS: ANION GAP 11.5 mmol/L (8-16); CARBON DIOXIDE 24.8 mmol/L (21.0-32.0)
[2019-01-16 20:43] LABS: POTASSIUM - SERUM 2.3 mmol/L (3.5-5.1)
[2019-01-16 20:57] LABS: BASOPHILS 0.3 % (0-2); EOSINOPHILS 2.2 % (0-7); HEMATOCRIT 28.4 % (42.0-54.0); IMMATURE GRANULOCYTES 0.5 % (0-5); LYMPHOCYTES 26.6 % (15-50); MCH 31.6 pg (26.0-34.0); MCHC 34.2 g/dL (31.0-37.0); MEAN PLATELET VOLUME 10.1 fL (7.4-10.4); MONOCYTES 6.4 % (2-11); RBC 3.07 10x6/uL (4.20-6.10); RDW 17.7 % (11.5-14.5)
[2019-01-16 20:58] LABS: HEMOGLOBIN 9.7 g/dL (13.5-17.5); MCV 92.5 fL (80.0-100.0); PLATELET COUNT 160 10x3/uL (130-400); WBC 6.3 10x3/uL (4.8-10.8)
--- NOTE | 2019-01-16 21:05 | NUR ---
DR. AGUILLON CALLED WITH NEW ORDERS NOTED
[2019-01-16 22:21] LABS: HEMATOCRIT 32.7 % (42.0-54.0); MCH 29.9 pg (26.0-34.0); MCHC 36.1 g/dL (31.0-37.0); MEAN PLATELET VOLUME 9.2 fL (7.4-10.4); PLATELET COUNT 148 10x3/uL (130-400); RDW 14.7 % (11.5-14.5)
[2019-01-16 22:24] LABS: WBC 1.8 10x3/uL (4.8-10.8)
[2019-01-16 22:25] LABS: HEMOGLOBIN 11.8 g/dL (13.5-17.5); RBC 3.94 10x6/uL (4.20-6.10)
[2019-01-16 22:37] LABS: ALBUMIN 3.4 g/dL (3.4-5.0); BILIRUBIN - TOTAL 2.51 mg/dL (0.2-1.3); CALCIUM 7.9 mg/dL (8.5-10.1); CARBON DIOXIDE 22.3 mmol/L (21.0-32.0); CREATININE - SERUM 1.9 mg/dL (0.6-1.3); PROTEIN - SERUM 5.1 g/dL (6.4-8.2)
[2019-01-16 22:39] LABS: POTASSIUM - SERUM 2.3 mmol/L (3.5-5.1)
--- NOTE | 2019-01-16 23:10 | NUR ---
DR. AGUILLON WANTED TO BE CALLED WITH RESULTS, WAS PAGED AND TRIED CELL PHONE WITH NO ANSWER, TREATMENTS CONTIUNED PER PREVIOUS ORDERS
[2019-01-16 23:32] LABS: ANISOCYTOSIS 1+; EOSINOPHILS 2 % (0-7); LYMPHOCYTES 28 % (15-50); NEUTROPHILS 42 % (40-80); PLATELET ESTIMATE DECREASED; PLATELET MORPHOLOGY GIANT PLTS PRESENT
[2019-01-16 23:33] LABS: POIKILOCYTOSIS 1+; POLYCHROMASIA 1+
[2019-01-17] VITALS (103 sets, daily range): BP systolic 82–126; BP diastolic 46–86; BMI 33.5
--- NOTE | 2019-01-17 00:10 | NUR ---
2315 PT WAKING UP AND VERY RESTLESS AND AGITATED 2326 PT STARTED ON PROPOFOL DRIP FOR SEDATION, PT STILL RESTLESS, PT SHAKING HEAD YES WHEN ASKED ABOUT PAIN, DR. MULLINS WAS PAGED TO INQUIRE ABOUT STARTING FENTANYL DRIP. 2355 DR. MULLINS RETURNED PAGED AND ORDERED TO STARTE THE FENTANYL PER THE ORDER. 0005 FENTANYL STARTED AT THIS TIME.
--- NOTE | 2019-01-17 01:37 | NUR ---
0130 DR. CHAPPELL CALLED ABOUT ABG RESULTS, NEW ORDERS NOTED
[2019-01-17 03:34] LABS: BASOPHILS 0.3 % (0-2); EOSINOPHILS 1.3 % (0-7); HEMATOCRIT 34.6 % (42.0-54.0); HEMOGLOBIN 12.8 g/dL (13.5-17.5); IMMATURE GRANULOCYTES 0.6 % (0-5); LYMPHOCYTES 19.1 % (15-50); MCH 30.3 pg (26.0-34.0); MCV 81.8 fL (80.0-100.0); MEAN PLATELET VOLUME 9.6 fL (7.4-10.4); MONOCYTES 7.6 % (2-11); NEUTROPHILS 71.1 % (40-80); PLATELET COUNT 139 10x3/uL (130-400); RBC 4.23 10x6/uL (4.20-6.10); RDW 15.2 % (11.5-14.5)
--- NOTE | 2019-01-17 03:35 | NUR ---
DR. MULLINS CALLED WITH LABS AND PT CHANGES. NO NEW ORDERS GIVEN.
[2019-01-17 03:42] LABS: INR 1.84 (0.85-1.17); PROTIME 20.6 SECONDS (11.6-15.0)
[2019-01-17 03:53] LABS: ALBUMIN 3.1 g/dL (3.4-5.0); BILIRUBIN - TOTAL 3.04 mg/dL (0.2-1.3); CALCIUM 7.9 mg/dL (8.5-10.1); CARBON DIOXIDE 23.4 mmol/L (21.0-32.0); PROTEIN - SERUM 4.6 g/dL (6.4-8.2)
[2019-01-17 03:55] LABS: ANION GAP 10.7 mmol/L (8-16); CREATININE - SERUM 2.6 mg/dL (0.6-1.3); POTASSIUM - SERUM 4.1 mmol/L (3.5-5.1)
[2019-01-17 03:56] LABS: MAGNESIUM - SERUM 0.9 mg/dL (1.8-2.4); PHOSPHOROUS 0.8 mg/dL (2.5-4.9)
--- NOTE | 2019-01-17 04:59 | NUR ---
DR. CHAPPELL CALLED WITH ABG RESULTS, NEW ORDERS NOTED
--- NOTE | 2019-01-17 07:00 | NUR ---
REPORT RECEIVED. ASSESSMENT COMPLETE PER FLOW SHEET. REFER FOR FINDINGS. WILL CONTINUE TO MONITOR
--- NOTE | 2019-01-17 07:50 | NUR ---
DR HOBSON AT BEDSIDE GIVEN UPDATE
--- NOTE | 2019-01-17 08:15 | NUR ---
FAMILY AT BEDSIDE. DEFFERED TO DARRELL SOFIA CHARGE NURSE NO UPDATE GIVEN
--- NOTE | 2019-01-17 09:10 | NUR ---
DR MÉNDEZ AT BEDSIDE NEW ORDERS RECEIVED
[2019-01-17 09:47] LABS: HEMATOCRIT 32.5 % (42.0-54.0); HEMOGLOBIN 11.8 g/dL (13.5-17.5); MCH 30.2 pg (26.0-34.0); MCHC 36.3 g/dL (31.0-37.0); MCV 83.1 fL (80.0-100.0); MEAN PLATELET VOLUME 10.3 fL (7.4-10.4); PLATELET COUNT 121 10x3/uL (130-400); RBC 3.91 10x6/uL (4.20-6.10); RDW 15.8 % (11.5-14.5)
[2019-01-17 09:48] LABS: WBC 10.8 10x3/uL (4.8-10.8)
[2019-01-17 09:58] LABS: ANION GAP 23.5 mmol/L (8-16); BILIRUBIN - TOTAL 2.5 mg/dL (0.2-1.3); CALCIUM 7.3 mg/dL (8.5-10.1); CREATININE - SERUM 2.8 mg/dL (0.6-1.3); POTASSIUM - SERUM 4.5 mmol/L (3.5-5.1); PROTEIN - SERUM 3.9 g/dL (6.4-8.2)
[2019-01-17 10:08] LABS: ALBUMIN 2.3 g/dL (3.4-5.0)
[2019-01-17 10:24] LABS: EOSINOPHILS 1 % (0-7); LYMPHOCYTES 10 % (15-50); MONOCYTES 12 % (2-11); NEUTROPHILS 38 % (40-80); PLATELET ESTIMATE DECREASED
--- NOTE | 2019-01-17 10:40 | NUR ---
COMPLETE BB LINEN CHANGE ADM.
--- NOTE | 2019-01-17 11:15 | NUR ---
REASSESSMENT COMPLETE PER FLOW. NO NEW CHANGES PT RESTING COMFORTABLY WILL CONTINUE TO MONITOR
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
[2019-01-17 13:28] LABS: BASOPHILS 0.1 % (0-2); EOSINOPHILS 0.3 % (0-7); HEMATOCRIT 35.5 % (42.0-54.0); IMMATURE GRANULOCYTES 3.5 % (0-5); LYMPHOCYTES 12.1 % (15-50); MCH 30.3 pg (26.0-34.0); MCHC 36.6 g/dL (31.0-37.0); MCV 82.8 fL (80.0-100.0); MEAN PLATELET VOLUME 10.4 fL (7.4-10.4); MONOCYTES 4.6 % (2-11); NEUTROPHILS 79.4 % (40-80); PLATELET COUNT 115 10x3/uL (130-400); RBC 4.29 10x6/uL (4.20-6.10); RDW 16.2 % (11.5-14.5)
[2019-01-17 13:31] LABS: WBC 15.3 10x3/uL (4.8-10.8)
[2019-01-17 13:41] LABS: ALBUMIN 2.6 g/dL (3.4-5.0); BILIRUBIN - TOTAL 2.73 mg/dL (0.2-1.3); CREATININE - SERUM 3.2 mg/dL (0.6-1.3); PROTEIN - SERUM 4.4 g/dL (6.4-8.2)
[2019-01-17 13:43] LABS: CALCIUM 6.9 mg/dL (8.5-10.1)
--- NOTE | 2019-01-17 15:00 | NUR ---
REASSESSMENT COMPLETE PER FLOW SHEET. VSS. NO NEW CHANGES PT RESTING COMFORTABLY WILL CONTINUE TO MONITOR
--- NOTE | 2019-01-17 17:20 | NUR ---
FAMILY AT BEDSIDE GIVEN UPDATE. DR AGUILLON AT BEDSIDE UPDATE GIVEN. WILL CONTINUE TO [place] PIERRE
[2019-01-17 17:35] LABS: BASOPHILS 0.2 % (0-2); EOSINOPHILS 0.2 % (0-7); HEMATOCRIT 33.5 % (42.0-54.0); HEMOGLOBIN 12.2 g/dL (13.5-17.5); IMMATURE GRANULOCYTES 7.2 % (0-5); LYMPHOCYTES 7.2 % (15-50); MCH 30.1 pg (26.0-34.0); MCHC 36.4 g/dL (31.0-37.0); MCV 82.7 fL (80.0-100.0); MEAN PLATELET VOLUME 10.7 fL (7.4-10.4); NEUTROPHILS 78.2 % (40-80); PLATELET COUNT 98 10x3/uL (130-400); RBC 4.05 10x6/uL (4.20-6.10); RDW 16.6 % (11.5-14.5); WBC 12.7 10x3/uL (4.8-10.8)
[2019-01-17 17:45] LABS: APPEARANCE CLOUDY (CLEAR); BILIRUBIN NEGATIVE (NEGATIVE); COLOR YELLOW (YELLOW); GLUCOSE NEGATIVE (NEGATIVE); KETONE NEGATIVE (NEGATIVE); NITRITE NEGATIVE (NEGATIVE); PROTEIN TRACE mg/dL (NEGATIVE); SPECIFIC GRAVITY 1.015 (1.005-1.020); UROBILINOGEN NORMAL (NORMAL)
[2019-01-17 17:46] LABS: AMORPHOUS SEDIMENT >1+ /lpf (NONE SEEN); BACTERIA MODERATE /hpf (NONE SEEN); EPITHELIAL CELLS 0-5 /hpf (0-5); MUCUS <1+ /lpf (NONE SEEN); WHITE CELLS - URINE 0-5 /hpf (0-5)
[2019-01-17 17:50] LABS: ALBUMIN 2.2 g/dL (3.4-5.0); ANION GAP 19.6 mmol/L (8-16); BILIRUBIN - TOTAL 2.38 mg/dL (0.2-1.3); CARBON DIOXIDE 20.5 mmol/L (21.0-32.0); CREATININE - SERUM 2.8 mg/dL (0.6-1.3); POTASSIUM - SERUM 5.1 mmol/L (3.5-5.1); PROTEIN - SERUM 3.7 g/dL (6.4-8.2)
[2019-01-17 17:54] LABS: CALCIUM 5.8 mg/dL (8.5-10.1)
--- NOTE | 2019-01-17 19:10 | NUR ---
Received patient laying in bed with eyes closed, assessment completed per flowsheet. Patient opens eyes spontaneously/follows instructions inconsistently. NGT R nare to LIWS, dark drainage noted. ETT 7.5 @ 23cm secured. S1/S2 noted Sinus Tach on telemetry, rythmic and regular. Vent settings A/C R-25 V-600 60% P-5 with O2 sat 97%, lung sounds slight expiratory wheeze noted R upper/R mid with clear L upper and diminished lower. Midline sternum/Abdominal incision dressing CDI, CT x2 L substernal with CT x1 R upper abdomen with bloody drainage. Abdomen is distened with bowel sounds absent x4, tender. Villar secured, clear slight cindy urine noted. R radial A-line with good waveform, wrist protector in use. Upper pulses palpable with lower pulses doppler, slight mottling noted bilateral lower. Tremors noted bilateral upper/L lower, no movement noted R lower. PUBLIC RELATIONS DIRECTOR in use for pain mgmt, unable to assess at this time. No further needs at this time, will continue to monitor.
--- NOTE | 2019-01-17 20:30 | NUR ---
Spoke to Dr Keller via phone, updated on current status. Instructed to decrease Levophed and increase Neosynephrine as needed to maintain BP/MAP. Will continue to monitor.
--- NOTE | 2019-01-17 21:00 | NUR ---
No visitors at this time, oral care provided. Patient becomes agitated to stimuli, weak movement noted all extremities. Unsuccessful with attempt to calm patient by speaking, patient returns to relaxed state after periods of no stimuli. Will continue to monitor.
[2019-01-17 21:46] LABS: BASOPHILS 0.2 % (0-2); EOSINOPHILS 0.2 % (0-7); HEMATOCRIT 35.9 % (42.0-54.0); HEMOGLOBIN 12.9 g/dL (13.5-17.5); IMMATURE GRANULOCYTES 7.1 % (0-5); LYMPHOCYTES 11.9 % (15-50); MCH 30.1 pg (26.0-34.0); MCHC 35.9 g/dL (31.0-37.0); MCV 83.7 fL (80.0-100.0); MONOCYTES 5.5 % (2-11); NEUTROPHILS 75.1 % (40-80); PLATELET COUNT 87 10x3/uL (130-400); RBC 4.29 10x6/uL (4.20-6.10); RDW 16.9 % (11.5-14.5); WBC 13.3 10x3/uL (4.8-10.8)
[2019-01-17 22:01] LABS: ALBUMIN 2.4 g/dL (3.4-5.0); ANION GAP 16.7 mmol/L (8-16); BILIRUBIN - TOTAL 2.62 mg/dL (0.2-1.3); CARBON DIOXIDE 23.5 mmol/L (21.0-32.0); CREATININE - SERUM 3.3 mg/dL (0.6-1.3); POTASSIUM - SERUM 5.2 mmol/L (3.5-5.1); PROTEIN - SERUM 4.5 g/dL (6.4-8.2)
[2019-01-17 22:03] LABS: CALCIUM 6.4 mg/dL (8.5-10.1)
--- NOTE | 2019-01-17 22:30 | NUR ---
Patient BP/MAP decreased on A-line, LR bolus given as ordered to maintain MAP > 65. Patient highly agitated and does not calm, Fentanyl AUDIO VISUAL SPECIALIST increased to 200mcg/4ml per orders.
--- NOTE | 2019-01-17 23:00 | NUR ---
Reassessment completed per flowsheet, no changes noted from previous assessment. Patient opens eyes spontaneous/does not follow commands. Patient becomes highly agitated to stimuli, returns to resting after period without stimuli. Midline sternum/Abdominal dressing CDI, R lateral abdomen dressing changed. CT x3 to 20cm suction with no air leak noted, bloody drainage. Patient moves all extremities weakly, upper pulses palpable with lower pulses doppler. Discoloration noted bilateral lower, slight mottling noted. No further needs at this time, will continue to monitor.
[2019-01-18] VITALS (64 sets, daily range): BP systolic 90–119; BP diastolic 50–80
--- NOTE | 2019-01-18 01:00 | NUR ---
Patient resting in bed with eyes closed, no s/s of distress. Oral care provided, no further needs and will continue to monitor.
--- NOTE | 2019-01-18 03:00 | NUR ---
Reassessment completed per flowsheet, no changes noted from previous assessment. Patient awakens to stimuli, agitated with unsuccessful attempts to calm. Midline sternum/abdomen incision dressing CDI, R lower abdomen dressing changed. CT x2 L substernal with small bloody drainage, no air leak noted. CT x1 R upper abdomen with scant bloody drainage, no air leak noted. Discoloration/slight mottling noted bilateral lower extremitity, lower pulses doppler. Oral care provided, no further needs at this time and will continue to monitor.
--- NOTE | 2019-01-18 07:00 | NUR ---
RECIEVED BEDSIDE REPORT ON PATIENT AND ASSUMED CARE OF PATIENT. PATIENT SEDATED ON VENT, BUT EASILY AROUSED BY VOICE, NOT FOLLOWING COMMANDS. BECOMES AGITATED WHEN AROUSED. ON FENTANYL GTT AT 200 MCG/HR (4 CC/HR) INFUSING. VASOPRESSIN INFUSING AT 0.4 UNITS/MIN (60 CC/HR), NEOSYNEPHRINE INFUING AT 0.2 MCG/KG/MIN (4.8 CC/HR), EPINEPHRINE AT 1 MCG/MIN (6 CC/HR), DOPAMINE AT 7 MCG/KG/MIN ( 27.6 CC/HR), LEVOPHED AT 20 MCG/MIN (37.5 CC/HR), BICARB GTT AT 125 CC/HR (150 MEQ) AND NS AT 10 CC/HR. LEFT ANTERIOR/POSTERIOR CHEST TUBE WITH NO OUTPUT NOTED TO ANTERIOR AND BLOODY OUTPUT NOTED TO POSTERIOR. RIGHT CHEST TUBE NOTED TO HAVE BLOODY OUTPUT. OPEN WOUND PACKED TO STERNUM AND ABDOMENT WITH OCCULUSSIVE DRESSING OVERLAID. NOTED SUCKING CHEST WOUND TO RIGHT OF STERNUM. CASTRO CATH IN PLACE WITH 62 CC UOP NOTED. ORAL TEMP 103.9, CRITICORE TEMP NOTED TO BE 104.4. CM - ST RATE OF 114, BBS - CLEAR ON RIGHT, EXPIRATORY WHEEZES TO LEFT NOTED. CVP AND ART LINE ZEROED. CVP - 14. HEAD TO TOE ASSESSMENT COMPLETED. DOPPLER SIGNALS PRESENT TO DORASALIS PEDIS PULSES. TOES AND FEET MOTTLED.
--- NOTE | 2019-01-18 08:10 | NUR ---
SPOKE TO DR. AGUILLON UPDATED ON PATIENT CONDITION AND OVERNIGHT STATUS, ADVISED OF FEVER 104.4, ADVISED WILL BE TAKING TO SURGERY TODAY. TO HAVE BLOOD BANK KEEP 4 UNITS OF PRBC AHEAD, HAVE FFP ON HAND, AND 2 PLATETS ON HAND. ALSO TO OBTAIN PTT, INR AND PT.
--- NOTE | 2019-01-18 08:32 | NUR ---
SPOKE TO DR. MÉNDEZ UPDATED ON PATIENT CONDITION AND REQUESTED PRN SEDATION MEDS. ADVISED HE WILL ORDER PRN VERSED. LABS DRAWN AND SENT TO LAB.
--- NOTE | 2019-01-18 08:33 | NUR ---
KENZIE RN WITH DR. NAYLOR AT ROOM UPDATED ON PATIENT CONDITION.
[2019-01-18 08:49] LABS: ANION GAP 18.9 mmol/L (8-16); APTT 45.3 SECONDS (22.8-39.4); CARBON DIOXIDE 23.2 mmol/L (21.0-32.0); CREATININE - SERUM 3.7 mg/dL (0.6-1.3); POTASSIUM - SERUM 5.1 mmol/L (3.5-5.1); PROTIME 30.1 SECONDS (11.6-15.0)
[2019-01-18 08:50] LABS: INR 2.96 (0.85-1.17)
--- NOTE | 2019-01-18 08:50 | NUR ---
XRAY AT ROOM FOR CXR.
[2019-01-18 08:57] LABS: CALCIUM 6.1 mg/dL (8.5-10.1)
--- NOTE | 2019-01-18 09:17 | NUR ---
CRITICAL CA OF 6.1 WITH ALBUMIN OF 2.0, DR. AGUILLON NOTIFIED, ORDERS ALBUMIN 25 GRAMS/100 ML TO BE GIVEN. ORDER PLACED AND ALBUMIN GIVEN.
[2019-01-18 09:20] LABS: HEMATOCRIT 34.1 % (42.0-54.0); MCH 29.4 pg (26.0-34.0); MCHC 35.2 g/dL (31.0-37.0); MCV 83.6 fL (80.0-100.0); MEAN PLATELET VOLUME 11.1 fL (7.4-10.4); PLATELET COUNT 71 10x3/uL (130-400); RBC 4.08 10x6/uL (4.20-6.10); RDW 17.3 % (11.5-14.5)
--- NOTE | 2019-01-18 09:43 | NUR ---
DOPAMINE GTT DECREASED TO 6 MCG/KG/MIN, 23.6 CC/HR, BP 121/71.
--- NOTE | 2019-01-18 10:40 | NUR ---
CHLORHEXIDINE GLUCONATE BATH GIVEN. VSS.
--- NOTE | 2019-01-18 11:09 | NUR ---
REASSESSMENT COMPLETED. S. BLOOD BANK HAS 4 UNITSOF PRBCS, 2 OF FFP AND 2 OF PLATELETS AVAILABLE FOR SURGERY.
[2019-01-18 12:05] LABS: LYMPHOCYTES 12 % (15-50); MONOCYTES 32 % (2-11); NEUTROPHILS 35 % (40-80); PLATELET ESTIMATE DECREASED
[2019-01-18 12:07] LABS: HELMET CELLS OCC; POLYCHROMASIA OCC
--- NOTE | 2019-01-18 13:04 | NUR ---
PATIENT TO OR.
--- NOTE | 2019-01-18 13:07 | NUR ---
Nutrition follow-up: Pt to OR at this time Labs reviewed Wt: 253# Maxed out on 5 pressors at this time Intubated, sedated septic shock IV albumin started No nutrition support at this time; pt too unstable. RDN following.
--- NOTE | 2019-01-18 14:15 | NUR ---
PHONE CONSENT OBTAINED FOR FASCIOTOMY OF RIGHT LEG AREA (FATHER, JONNATHAN JONES) PER DR AGUILLON REQUEST PER KIANA RENDON RN
--- NOTE | 2019-01-18 14:27 | NUR ---
THIRTEEN LAP SPONGES REMOVED FROM ABDOMEN-SH
--- NOTE | 2019-01-18 14:47 | NUR ---
TWELVE LAPS PACKED IN ABDOMEN, ONE LAP IN RIGHT THIGH
--- NOTE | 2019-01-18 14:52 | NUR ---
REVISION 14 LAPS PACKED IN PT- 12 IN ABDO & 2 IN RT THIGH
--- NOTE | 2019-01-18 15:15 | NUR ---
PATIENT BACK FROM OR S/P RIGHT COLONECTOMY AND RIGHT FASCIOTOMY. VSS. TEMP 101.4.
--- NOTE | 2019-01-18 15:54 | MORECARE ---
CASE MANAGEMENT DISCHARGE SUMMARY PATIENT: KENNY JONES UNIT: [id number] ADM DATE: 01/16/19 AGE: 53 : 67 SEX: M ROOM/BED: D.2306 AUTHOR: GEORGE BIRD PHYSICIAN: REFERRING PHYSICIAN: ROSANNE AGUILLON MD DATE OF SERVICE: 01/18/19 Discharge Plan Patient Name: KENNY JONES [facility] [facility] 1965 Planned Disposition: Anticipated Discharge Date: Discharge Date: Expected LOS: Initial Reviewer: [email or web address] Initial Review Date: 01/17/2019 Generated: 01/18/19 4:53 pm Comments DCP- Discharge Planning Updated by [email or web address]: Sonia Wyatt on 01/18/19 2:[address] LATE ENTRY 01/17/19 CM attempted to visit with patient regarding discharge planning/ needs. Patient currently on vent no family available. CM will continue to follow and assist as needed with discharge planning / needs Patient Name: KENNY JONES Page [id number] at 1554 All edits/amendments must be made on the electronic document DICTATION DATE: 01/18/191552 TELECOMMUNICATIONS TECHNICIAN: SPENCER 01/18/191552 RPT#: [id number] DC DATE: STATUS: ADM IN [facility] [address] [place] [address] END OF REPORT
--- NOTE | 2019-01-18 16:30 | MORECARE ---
CASE MANAGEMENT DISCHARGE SUMMARY PATIENT: KENNY JONES UNIT: [id number] ADM DATE: 01/16/19 AGE: 53 : 67 SEX: M ROOM/BED: D.2306 AUTHOR: GEORGE BIRD PHYSICIAN: REFERRING PHYSICIAN: ROSANNE AGUILLON MD DATE OF SERVICE: 01/18/19 Discharge Plan Patient Name: KENNY JONES [facility] [facility] 1965 Planned Disposition: Anticipated Discharge Date: Discharge Date: Expected LOS: Initial Reviewer: [email or web address] Initial Review Date: 01/17/2019 Generated: 01/18/19 5:30 pm Comments DCP- Discharge Planning Updated by [email or web address]: Sonia Wyatt on 01/18/19 3:[address] CM attempted to visit with patient regarding discharge planning/ needs. Patient currently on vent no family available. Patient has just returned from OR. Patient will most likely need LTACH if he survives. CM will continue to follow and assist as needed with discharge planning / needs DCP- Discharge Planning Updated by [email or web address]: Sonia Wyatt on 01/18/19 2:[address] LATE ENTRY 01/17/19 CM attempted to visit with patient regarding discharge planning/ needs. Patient currently on vent no family available. CM will continue to follow and assist as needed with discharge planning / needs Last DP export: 01/18/19 2:54 p Patient Name: KENNY JONES Page [id number] at 1630 All edits/amendments must be made on the electronic document DICTATION DATE: 01/18/19 1630 HEAD BUYER TOBACCO: SPENCER 01/18/19 1630 RPT#: [id number] DC DATE: STATUS: ADM IN [facility] [address] [place] [address] END OF REPORT
--- NOTE | 2019-01-18 16:36 | NUR ---
CENTRAL LINE DRESSINGS TO R IJ AND R SUBCLAVIAN CHANGED AND DATED.
[2019-01-18 17:05] LABS: MAGNESIUM - SERUM 1.7 mg/dL (1.8-2.4); PHOSPHOROUS 4.9 mg/dL (2.5-4.9)
--- NOTE | 2019-01-18 17:45 | NUR ---
DR. AGUILLON AND PATIENTS FATHER IN ROOM, PATIENTS FATHER UPDATED AND QUESTIONS ANSWERED. DR. AGUILLON ORDERS NTG PASTE TO PATIENT TOES Q12 HR.
--- NOTE | 2019-01-18 19:00 | NUR ---
Received patient resting in bed with eyes closed, assessment completed per flowsheet. Patient awakens to stimuli/does not follow commands, patient becomes agitated with stimuli with limited success in calming. NGT R nare to LIWS, small dark drainage noted. ETT 7.5 @ 23cm secured. S1/S2 noted Sinus Tach on Telemetry, rythmic and regular. Vent settings A/C R-25 V-600 60% P-5 with O2 sat 98%, expiratory wheeze noted RUL/RML with clear MYRON and diminished lower. Midline Sternum/Abdomen incision dressing CDI, L substernal CT x2 / R upper abdomen CT x1 to 20cm suction with small bloody drainage. Abdomen is distended with bowel sounds hypoactive x4, tender. Villar secured, clear slight cindy urine noted. R radial A-line with good waveform, wrist protector in use. Upper pulses palpable with cap refill < 3 sec, bilateral lower dicoloration/slight mottled with pulses doppler. Oral care provided, repositioned for comfort. ELECTRIC ORGAN ASSEMBLER in use for pain mgmt, no further needs at this time and will continue to monitor.
--- NOTE | 2019-01-18 21:00 | NUR ---
Patient resting in bed with eyes closed, no s/s of distress at this time. Titrating medications per orders, oral care/suctioning provided. No further needs at this time, will continue to monitor.
--- NOTE | 2019-01-18 23:00 | NUR ---
Reassessment completed per flowsheet, no changes noted from previous assessment. Patient awakens easily to stimuli and becomes agitated, returns to resting after short period. S1/S2 noted Sinus Tach on telemetry, rythmic and regular. Vent settings unchanged from previous with O2 sat 99%, expiratory wheeze noted RUL/RML with clear MYRON and diminished lower. Midline sternum/Abdomen incision dressing intact, L substernal CT x2/R upper abdomen CT x1 with scant bloody drainage. Lower extremities with slight mottled, lower pulses doppler. Oral care/suctioning provided, repositioned for comfort. No further needs at this time, will continue to monitor.
--- NOTE | 2019-01-18 23:45 | NUR ---
Patient awakened highyl agitated, HR increased with BP increase. PRN Versed given as ordered, will continue to monitor.
[2019-01-19] VITALS (92 sets, daily range): BP systolic 90–140; BP diastolic 49–97
--- NOTE | 2019-01-19 01:00 | NUR ---
Patient sleeping in bed with eyes closed, no s/s of agitation/distress at this time. Oral care/suctioning provided, repositioned for comfort. No further needs at this time, all VSS and will continue to monitor.
--- NOTE | 2019-01-19 02:25 | NUR ---
Patient awake in bed and agitated, observed pulling against restraints and trying to push ETT out with toungue. Ensured ETT/wirst restraints secured, PRN Versed given as ordered. Will continue to monitor.
--- NOTE | 2019-01-19 03:00 | NUR ---
Reassessment completed per flowsheet. S1/S2 noted Sinus Tach on telemetry with rare PVC noted. Vent settings unchanged with O2 sat 99%, expiratory wheeze noted RUL/RML with Clear MYRON and diminished lower. Midline sternum/abdomen dressing with small leakage noted at base, reinforced. R upper thigh fasciotomy site dressing reinforced, small blood noted at upper thigh area. Oral care provided, repositioned for comfort. No further needs at this time, see flowsheet for details. Will continue to monitor.
[2019-01-19 04:37] LABS: HEMATOCRIT 29.1 % (42.0-54.0); HEMOGLOBIN 10.5 g/dL (13.5-17.5)
[2019-01-19 04:46] LABS: ANION GAP 16.9 mmol/L (8-16); CREATININE - SERUM 3.9 mg/dL (0.6-1.3); POTASSIUM - SERUM 4.9 mmol/L (3.5-5.1)
[2019-01-19 04:54] LABS: CALCIUM 5.4 mg/dL (8.5-10.1); MAGNESIUM - SERUM 2.2 mg/dL (1.8-2.4); PHOSPHOROUS 6.5 mg/dL (2.5-4.9)
--- NOTE | 2019-01-19 07:00 | NUR ---
RECEIVED BEDSIDED REPORT ON PATIENT AND ASSUMED CARE. PATIENT WITH PRBC UNIT 2/2 INFUSING, BICARB GTT AT 125 CC/HR, NEOSYNEPHRINE AT 0.2 MCG/KG/MIN (4.6 CC/HR), FENTANYL AT 200 MCG/HR (4CC/HR), DOPAMINE AT 5 MCG/KG/MIN (19.7 CC/HR), LEVOPHED AT 16 MCG/MIN (30 CC/HR), VASOPRESIN AT 0.04 UNITS/MIN (6CC/HR) AND NS AT KVO. BBS - CLEAR AND EQUAL, CM - ST RATE OF 110, ART LINE AND CVP ZEROED, GOOD WAVEFORMS. CVP - 11. BILATERAL FEET MOTTLED, COOL TO TOUCH, DOPPLER SIGNALS PRESENT FOR DORSALIS PEDIS PULSES. CHEST TUBES TO 20 CM SUCTION, WITH NO AIR LEAKS PRESENT. HEAD TO TOE ASSESSMENT COMPLETE.
--- NOTE | 2019-01-19 08:05 | NUR ---
DR. AGUILLON PAGED REGARDING PATIENTS IONIZED CALCIUM OF 0.69, ORDERS 1 AMP OF CALCIUM CHLORIDE TO BE GIVEN. ORDER PLACED.
--- NOTE | 2019-01-19 08:11 | NUR ---
2ND UNIT OF PRBC INFUSION COMPLETED. VSS. NO S/S OF TRANSFUSION REACTIONS.
--- NOTE | 2019-01-19 08:30 | NUR ---
PLATELETS STARTED INFUSING.
--- NOTE | 2019-01-19 08:53 | NUR ---
PLATLET INFUSION COMPLETED, FFP INFUSION STARTED. VSS.
--- NOTE | 2019-01-19 09:01 | NUR ---
PATIENTS CERTIFIED OPTICIAN AT ROOM PRAYS OVER PATIENT.
--- NOTE | 2019-01-19 09:37 | NUR ---
LINENS CHANGED, DRESSING TO RIGHT LEG REINFORCED, TURNED AND REPOSITIONED. VSS. FFP INFUSION COMPLETED. VSS. HEELS BRIDGED WITH PILLOWS.
--- NOTE | 2019-01-19 09:46 | NUR ---
LEVOPHED GTT DECREASED TO 15 MCG/MIN, 28.1 CC/HR. BP 138/70 (93).
--- NOTE | 2019-01-19 10:01 | NUR ---
LEVOPHED GTT DECREASED TO 14 MCG/MIN (26.3 CC/HR), BP - 138/80 (92). PATIENT RESTING QUIETLY. VSS.
--- NOTE | 2019-01-19 10:19 | NUR ---
NOTED MOTTLING TO FINGERS OF PATINTS LEFT FINGERS AND TO RIGHT THUMB AND 1ST DIGIT.
--- NOTE | 2019-01-19 10:21 | NUR ---
LEVOPHED GTT DECREASED TO 12 MCG/MIN (22.5 CC/HR). BP 125/75 (89).
--- NOTE | 2019-01-19 10:32 | NUR ---
CBC DRAWN AND SENT TO LAB.
[2019-01-19 10:35] LABS: BASOPHILS 0.3 % (0-2); EOSINOPHILS 0 % (0-7); HEMATOCRIT 29.4 % (42.0-54.0); HEMOGLOBIN 10.6 g/dL (13.5-17.5); IMMATURE GRANULOCYTES 7.4 % (0-5); LYMPHOCYTES 8.1 % (15-50); MCH 30.2 pg (26.0-34.0); MCHC 36.1 g/dL (31.0-37.0); MCV 83.8 fL (80.0-100.0); MEAN PLATELET VOLUME 10.6 fL (7.4-10.4); MONOCYTES 6.4 % (2-11); NEUTROPHILS 77.8 % (40-80); RBC 3.51 10x6/uL (4.20-6.10); RDW 16.5 % (11.5-14.5)
[2019-01-19 10:38] LABS: PLATELET COUNT 100 10x3/uL (130-400); WBC 5.9 10x3/uL (4.8-10.8)
--- NOTE | 2019-01-19 10:59 | NUR ---
DR. AGUILLON IN ROOM UPDATED AND EXAINES PATIENT. PLANS TO TAKE PATIENT BACK TO OR TOMORROW. REASSESSMENT COMPLETE. VSS. REPEAT HCT POST BLOOD TRANSFUSION 29.4 TO GIVE ADDITIONAL 2 UNITS OF PRBC AND 1 UNIT OF FFP AND 1 UNIT OF PLATELETS. ORDER PLACED.
--- NOTE | 2019-01-19 11:42 | NUR ---
1ST OF 2 UNITS OF PRBCS STARTING TO INFUSE, VSS. NEOSYNEPHRIN GTT DECREASED TO 0.1 MCG/KG/MIN (2.4 CC/HR). BP 132/70 (94).
--- NOTE | 2019-01-19 12:16 | NUR ---
PATIENT ADVISING HE IS IN PAIN, FOLLOWING COMMANDS. FENTANYL GTT INCREASED TO 300 MCG/HR (6 CC/HR).
--- NOTE | 2019-01-19 12:44 | NUR ---
DR. HOBSON AT ROOM UPDATED AND EXAMINES PATIENT.
--- NOTE | 2019-01-19 13:11 | NUR ---
1/2 PRBCS INFUSION COMPLETED AT 1300, 2/2 PRBCS INFUSION STARTED AT 1312, VSS.
--- NOTE | 2019-01-19 13:26 | NUR ---
DR. HOBSON IN ROOM ORDERS 2 GM OF CALCIUM GLUCONATE.
--- NOTE | 2019-01-19 13:43 | NUR ---
DOPAMINE GTT DECREASED TO 3 MCG/KG/MIN (11.8 CC/HR), BP 108/69 (90).
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
--- NOTE | 2019-01-19 14:35 | NUR ---
2/2 PRBC INFUSION COMPLETE (1422), VSS NO S/S OF TRANSFUSION REACTION. 05/10 PLATELETS INFUSION BEGAN AT 1435.
--- NOTE | 2019-01-19 14:52 | NUR ---
1450 PLATELETS / COMPLETED INFUSING, VSS, NO S/S OF TRANSFUSION REACTION. 1452 FFP 05/10 INFUSION STARTED.
--- NOTE | 2019-01-19 14:55 | NUR ---
DOPAMINE GTT DECREASED TO 2 MCG/KG/MIN, (7.88 CC/HR.) BP 110/72 (83).
--- NOTE | 2019-01-19 14:59 | NUR ---
REASSESSMENT COMPLETED. PATIENT RESTING QUIETLY, SEDATED ON VENT. FOLLOWING COMMANDS. VSS. TURNED AND REPOSITIONED IN BED.
--- NOTE | 2019-01-19 15:12 | NUR ---
FFP 1/ INFUSION COMPLETE, VSS. NO S/S OF TRANSFUSION REACTION.
--- NOTE | 2019-01-19 15:29 | NUR ---
TYPE AND CROSSMATCH DRAWN AND NEW BLOOD ARM BAND PLACED ON PATIENT. OLD BLOOD BAND REMOVED.
[2019-01-19 15:49] LABS: HEMATOCRIT 31.7 % (42.0-54.0); HEMOGLOBIN 11.2 g/dL (13.5-17.5); MCH 29.6 pg (26.0-34.0); MCHC 35.3 g/dL (31.0-37.0); MCV 83.9 fL (80.0-100.0); MEAN PLATELET VOLUME 10.8 fL (7.4-10.4); PLATELET COUNT 109 10x3/uL (130-400); RBC 3.78 10x6/uL (4.20-6.10); RDW 16.1 % (11.5-14.5); WBC 4.6 10x3/uL (4.8-10.8)
[2019-01-19 16:19] LABS: BASOPHILS 6 % (0-2); LYMPHOCYTES 8 % (15-50); MONOCYTES 5 % (2-11); NEUTROPHILS 73 % (40-80); PLATELET ESTIMATE DECREASED
--- NOTE | 2019-01-19 17:09 | NUR ---
PATIENT TURNED AND REPOSITIONED, DRESSING TO RIGHT LEG REDRESSED. LINENS CHANGED. VSS. PATIENTS SISTER EPIFANIO AT ROOM UPDATED AND QUESIONS ANSWERED.
--- NOTE | 2019-01-19 17:30 | NUR ---
DR. AGUILLON AT ROOM UPDATED AND EXAMINES PATIENT. UPDATES PATIENTS DAUGHTER (EPIFANIO) AND ANSWERS QUESTIONS.
--- NOTE | 2019-01-19 17:55 | NUR ---
PATIENTS FATHER AT ROOM UPDATED AND QUESTIONS ANSWERED.
--- NOTE | 2019-01-19 19:00 | NUR ---
Received patient resting in bed with eyes closed, assessment completed per flowsheet. NGT R nare to LIWS, thick green drainage noted. ETT 7.5 @ 23cm midline lip, secured. S1/S2 noted NSR on telemetry, rythmic and regular. Vent settings A/C R-25 V-600 35% P-5 with O2 sat 99%, lung sounds clear bilateral upper and mid with diminished lower. Midline sternum/abdomen incision dressing CDI, L substernal CT x2 / R upper abdomen CT x1 with scant bloody drainage. Abdomen is distended/firm with bowel sounds absent x4, tender. Villar secured, cindy urine noted. R radial A-line with good waveform, wrist protector in use. LUE pulses palpable with BLE pulses doppler, extremities cool/discolored. Oral care/suctioning provided, repositioned for comfort. No further needs at this time, see flowsheet for details and will continue to monitor.
--- NOTE | 2019-01-19 21:00 | NUR ---
Patient laying in bed agitated, nods head when questioned about pain. Will provide PRN medication as ordered, repositioned for comfort. Will continue to monitor.
--- NOTE | 2019-01-19 21:20 | NUR ---
Patient febrile with temp 103.0, paged surgical on-call to notify. Spoke to Dr Waldrop with new orders received, 650mg Tylenol Rectal to be given as ordered.
--- NOTE | 2019-01-19 23:00 | NUR ---
Reassessment completed per flowsheet, no changes noted from previous assessment. Patient opens eyes/follows instructions, becomes agitated to stimuli with unsuccessful attempts to calm. Midline sternum/Abdominal incision dressing CDI, L substernal CT x2 / R upper abdomen CT x1 with scant bloody drainage. All extremities cool/discolored, Upper pulses palpable with lower pulses doppler. Oral care/suctioning provided, repositioned for comfort. See flowsheet for details, will continue to monitor.
[2019-01-20] VITALS (85 sets, daily range): BP systolic 88–131; BP diastolic 59–93
--- NOTE | 2019-01-20 03:00 | NUR ---
Reassessment completed per flowsheet, no changes noted from previous assessment. Midline sternum/Abdominal incsion dressing intact, L substernal CT x2 / R upper abdomen CT x1 with scant bloody drainage. Upper pulses palpable with lower pulses doppler, all extremities cool/discolored. Oral care/suctioning provided, repositioned for comfort. No further needs at this time, see flowsheet for details and will continue to monitor.
[2019-01-20 06:15] LABS: BASOPHILS 0.4 % (0-2); EOSINOPHILS 0.6 % (0-7); HEMATOCRIT 32.8 % (42.0-54.0); HEMOGLOBIN 11.3 g/dL (13.5-17.5); IMMATURE GRANULOCYTES 1.6 % (0-5); LYMPHOCYTES 19.6 % (15-50); MCH 29.8 pg (26.0-34.0); MCHC 34.5 g/dL (31.0-37.0); MONOCYTES 10.7 % (2-11); NEUTROPHILS 67.1 % (40-80); PLATELET COUNT 93 10x3/uL (130-400); RBC 3.79 10x6/uL (4.20-6.10); RDW 16.3 % (11.5-14.5); WBC 4.9 10x3/uL (4.8-10.8)
[2019-01-20 06:27] LABS: MCV 86.5 fL (80.0-100.0)
[2019-01-20 06:34] LABS: ALBUMIN 2.1 g/dL (3.4-5.0); CARBON DIOXIDE 31.4 mmol/L (21.0-32.0); MAGNESIUM - SERUM 2.3 mg/dL (1.8-2.4); VANCOMYCIN - TROUGH 18.4 ug/mL (10.0-20.0)
[2019-01-20 06:36] LABS: ANION GAP 14.6 mmol/L (8-16); PHOSPHOROUS 4.1 mg/dL (2.5-4.9)
[2019-01-20 06:37] LABS: CALCIUM 6.3 mg/dL (8.5-10.1)
--- NOTE | 2019-01-20 10:14 | NUR ---
0800-DR AGUILLON CALLED [facility] FOR UPDATE-HEMOGRAM BMP CURRENT V/S GIVEN- FATHER AT BEDSIDE STATUS REPORT GIVEN -QUESTIONS ADDRESSED TO BEST OF ABILITY 0930-DR MÉNDEZ AT [facility]-STATUS REPORT ORDER RECIVED AND NOTED
--- NOTE | 2019-01-20 10:19 | NUR ---
NUTRITION F/U NURSING REPORTS PT SCHEDULED TO RETURN TO OR TODAY. NO CURRENT NUTRITION SUPPORT AT THIS TIME. RD FOLLOWING
--- NOTE | 2019-01-20 11:17 | MORECARE ---
CASE MANAGEMENT DISCHARGE SUMMARY PATIENT: KENNY JONES UNIT: [id number] ADM DATE: 01/16/19 AGE: 53 : 67 SEX: M ROOM/BED: D.2306 AUTHOR: GEORGE BIRD PHYSICIAN: REFERRING PHYSICIAN: ROSANNE AGUILLON MD DATE OF SERVICE: 01/20/19 Discharge Plan Patient Name: KENNY JONES [facility] [facility] 1965 Planned Disposition: Longterm Acute Care Facility Anticipated Discharge Date: Discharge Date: Expected LOS: Initial Reviewer: [email or web address] Initial Review Date: 01/17/2019 Generated: 01/20/19 12:17 pm DCP- Discharge Planning Updated by [email or web address]: Sonia Wyatt on 01/18/19 3:[address] CM attempted to visit with patient regarding discharge planning/ needs. Patient currently on vent no family available. Patient has just returned from [place]. Patient will most likely need LTACH if he survives. CM will continue to follow and assist as needed with discharge planning / needs DCP- Discharge Planning Updated by [id number]: Sonia Wyatt on 01/18/19 2:[address] LATE ENTRY 01/17/19 CM attempted to visit with patient regarding discharge planning/ needs. Patient currently on vent no family available. CM will continue to follow and assist as needed with discharge planning / needs Last DP export: 01/18/19 3:30 p Patient Name: KENNY JONES Page [phone] at 1117 All edits/amendments must be made on the electronic document DICTATION DATE: 01/20/19 1116 WASHER CUTTER: SPENCER 01/20/19 1116 RPT#: [id number] DC DATE: STATUS: ADM IN [facility] [address] [place] [address] END OF REPORT
--- NOTE | 2019-01-20 11:32 | MORECARE ---
CASE MANAGEMENT DISCHARGE SUMMARY PATIENT: KENNY JONES UNIT: [id number] ADM DATE: 01/16/19 AGE: 53 : 67 SEX: M ROOM/BED: D.2306 AUTHOR: MARGE,DOC PHYSICIAN: REFERRING PHYSICIAN: ROSANNE AGUILLON MD DATE OF SERVICE: 01/20/19 Discharge Plan Patient Name: KENNY JONES Facility: [facility]:[place] : 1965 Planned Disposition: [facility] Acute Care Facility Anticipated Discharge Date: Discharge Date: Expected LOS: Initial Reviewer: [email or web address] Initial Review Date: 01/17/2019 Generated: 01/20/19 12:32 pm DCP- Discharge Planning Updated by [email or web address]: Sonia Wyatt on 01/18/19 3:[address] CM attempted to visit with patient regarding discharge planning/ needs. Patient currently on vent no family available. Patient has [place] returned from [place]. Patient will most likely need LTACH if he survives. CM will continue to follow and assist as needed with discharge planning / needs DCP- Discharge Planning Updated by [email or web address]: Sonia Wyatt on 01/18/19 2:[address] LATE ENTRY 01/17/19 CM attempted to visit with patient regarding discharge planning/ needs. Patient currently on vent no family available. CM will continue to follow and assist as needed with discharge planning / needs DCPIA - Discharge Planning Initial Assessment Updated by [id number]: Sonia Wyatt on 01/20/19 11:31 am * Is the patient Alert and Oriented? No * PCP NICK QUINONEZ * Pharmacy [facility] * Preadmission Environment Home Alone * ADLs Independent * List name and contact numbers for known caregivers / representatives who currently or will assist patient after discharge: BRIAN CATALANB - BROTHER - [phone] JONNATHAN B[place]LEHEM - FATHER - [phone] [facility] [phone] [facility] [phone] * Verbal permission to speak to the caregivers and representatives has been obtained from the patient. N/A * Additional services required to return to the preadmission environment? No * Can the patient safely return to the preadmission environment? Yes * Has this patient been hospitalized within the prior 30 days at any hospital? No Last DP export: 01/20/19 10:17 a Patient Name: KENNY JONES Page 21741 at 1132 All edits/amendments must be made on the electronic document DICTATION DATE: 01/20/191131 SAP PAYROLL CONSULTANT: SPENCER 01/20/19 1132 RPT#: [id number] DC DATE: STATUS: ADM IN [facility] [address] [place] [address] END OF REPORT
--- NOTE | 2019-01-20 11:41 | MORECARE ---
CASE MANAGEMENT DISCHARGE SUMMARY PATIENT: KENNY JONES UNIT: [id number] ADM DATE: 01/16/19 AGE: 53 : 67 SEX: M ROOM/BED: D.2306 AUTHOR: MARGE,DOC PHYSICIAN: REFERRING PHYSICIAN: ROSANNE AGUILLON MD DATE OF SERVICE: 01/20/19 Discharge Plan Patient Name: KENNY JONES Facility: [facility]:[place] : 1965 Planned Disposition: System Train[facility] Acute Care Facility Anticipated Discharge Date: Discharge Date: Expected LOS: Initial Reviewer: [id number] Initial Review Date: 01/17/2019 Generated: 01/20/19 12:41 pm Comments DCP- Discharge Planning Updated by [email or web address]: Sonia Wyatt on 01/20/19 10:[address] Patient Name: KENNY JONES Admission Status: ER Accout number: [id number] Admission Date: 01-16-2019 : 1965 Admission Diagnosis:UNSP OPN WND UNSP FRONT WALL OF THRX W PENET THOR CAV, Attending: ROSANNE AGUILLON Current LOS: 4 Anticipated DC Date: Planned Disposition: Fdc Acute Care Facility Primary Insurance: MEDICARE A & B Discharge Planning Comments: PATIENT LIVED ALONE WITH A HISTORY OF PSYCHIATRIC ISSUES. PLAN AT THIS TIME WILL BE LTACH PLACEMENT ONCE STABILIZED THEN MOST LIKELY PSYCH PLACEMENT. CM WILL CONTINUE TO FOLLOW AND ASSIST NEEDED WITH DISCHARGE PLANNING / NEEDS Manager Hair: Sonia Wyatt DCP- Discharge Planning Updated by [email or web address]: Sonia Wyatt on 01/18/19 3:[address] CM attempted to visit with patient regarding discharge planning/ needs. Patient currently on vent no family available. Patient has just returned from [place]. Patient will most likely need LTACH if he survives. CM will continue to follow and assist as needed with discharge planning / needs DCP- Discharge Planning Updated by [email or web address]: Sonia Wyatt on 01/18/19 2:[address] LATE ENTRY 01/17/19 CM attempted to visit with patient regarding discharge planning/ needs. Patient currently on vent no family available. CM will continue to follow and assist as needed with discharge planning / needs DCPIA - Discharge Planning Initial Assessment Updated by [email or web address]: Sonia Wyatt on 01/20/19 11:31 am * Is the patient Alert and Oriented? No * PCP NICK QUINONEZ * Pharmacy [facility] * Preadmission Environment Home Alone * ADLs Independent * List name and contact numbers for known caregivers / representatives who currently or will assist patient after discharge: BRIAN JONES - BROTHER - [phone] JONNATHAN SHARPS - FATHER - [phone] [facility] [phone] [facility] [phone] * Verbal permission to speak to the caregivers and representatives has been obtained from the patient. N/A * Additional services required to return to the preadmission environment? No * Can the patient safely return to the preadmission environment? Yes * Has this patient been hospitalized within the prior 30 days at any hospital? No Last DP export: 01/20/19 10:32 a Patient Name: KENNY JONES Page 68583 at 1141 All edits/amendments must be made on the electronic document DICTATION DATE: 01/20/19 1141 WOOD TYPE CUTTER: SPENCER 01/20/19 1141 RPT#: [id number] DC DATE: STATUS: ADM IN [facility] [address] [place] [address] END OF REPORT
--- NOTE | 2019-01-20 12:52 | NUR ---
1230-DR HOBSON AT BEDSIDE-IV CHANGED TO 150ML/H DIRECTED
--- NOTE | 2019-01-20 13:13 | NUR ---
REMOVAL OF WET ABSORBANT PADS SATURATED X3 NOTED INCREASED FACIAL GRIMACE INC FENT TO 350MCG
--- NOTE | 2019-01-20 14:08 | NUR ---
REMOVED ALL SATURATED PADS FROM BEHIND PT -TURNED TO L SIDE-SEVERE AGITATION- VERSED 2MG IVP GIVEN -ABP 128/92-LEVOPHED DEC TO 2.5
--- NOTE | 2019-01-20 14:51 | NUR ---
LEVOPHED TURNED OFF-ABP 123/89
--- NOTE | 2019-01-20 16:27 | NUR ---
SISTER AT BEDSIDE -ANSWERED QUESTIONS TO BEST OF ABILITY-STATED SPOKE WITH SURGEON YESTERDAY EVENING
--- NOTE | 2019-01-20 18:41 | NUR ---
PT TO OR WITH OR TEAM-BAGGED 100%--R JUGULAR IN PLACE -HERNANDEZ AT 0.1 AND VASO AT 0.02UNITS
--- NOTE | 2019-01-20 19:22 | NUR ---
12 LAP SPONGES REMOVED FROM PERITONEAL CAVITY AT ONSET OF SURGERY. RIGHT THIGH REDRESSED. CONSENTS SIGNED PER PT'S FATHER.
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
--- NOTE | 2019-01-20 22:00 | NUR ---
ANDREE PLACED TO GRAVITY DRAIN AT THIS TIME
--- NOTE | 2019-01-20 23:00 | NUR ---
REASSESSMENT COMPLETED, PT OPENS EYES WITH VERBAL STIMULI, DOES NOT FOLLOW COMMANDS, CM-97, RIGHT THIGH DRSG OOZING SEROUS DRAINAGE, DRSG REINFORCED, TEMP 97.8 BY CRITICORE, PT COVERED WITH BLANKETS, GREEN DRAINAGE NOTED FROM OGT TO LIWS, WILL CONTINUE TO MONITOR CLOSELY FOR CHANGES.
[2019-01-21] VITALS (102 sets, daily range): BP systolic 61–119; BP diastolic 39–104
--- NOTE | 2019-01-21 | NUR ---
ROUTINE MEDS GIVEN, PT AGITATED, SCRATCHING BED, CALMS TO VERBAL STIMULI, ATTEMPTED TO ORIENT TO CURRENT TIME, BP STABLE.
--- NOTE | 2019-01-21 01:30 | NUR ---
SEROUS YELLOW FLUID NOTED TO RIGHT THIGH DRSG AND BACK, DRY PADS APPLIED, BP DECREASED TITRATING NEOSYNEPHRINE FOR EFFECT
--- NOTE | 2019-01-21 03:00 | NUR ---
NEOSYNEPHRINE INCREASED TO 0.3MCG/KG/MIN OR 7CC/HR, BP 78/64, PT REPOSITIONED FOR COMFORT, CM-ST @ 101, REASSESSMENT COMPLETED, RIGHT LOWER QUADRANT ANDREE CONTINUES TO SUCTION WITH SANGUINOUS DRAINAGE NOTED, LEFT CT'S X 2 TO 20CM H2O SUCTION AND RIGHT CT TO 20CM WITH SMALL AIR LEAK, PADDING DRY AT THIS TIME, 1:1 NURSING CONTINUES.
--- NOTE | 2019-01-21 05:00 | NUR ---
WHITE PADS MOIST WITH SEROUS DRAINAGE, CHANGED BILATERALLY, BP STABLE, PT RESTING ON VENT EYES CLOSED, RESP 22, WILL CONT TO MONITOR FOR CHANGES.
--- NOTE | 2019-01-21 05:55 | NUR ---
AM LAB DRAWN FROM CVL AND SENT TO LAB
--- NOTE | 2019-01-21 06:10 | NUR ---
AM MEDS GIVEN ORDRED, RADIOLOGY AT BS FOR AM CXR, VSS.
[2019-01-21 06:30] LABS: HEMATOCRIT 35.3 % (42.0-54.0); HEMOGLOBIN 11.9 g/dL (13.5-17.5); IMMATURE GRANULOCYTES 3.7 % (0-5); MCHC 33.7 g/dL (31.0-37.0); MEAN PLATELET VOLUME 11.6 fL (7.4-10.4); RBC 3.97 10x6/uL (4.20-6.10); RDW 16.4 % (11.5-14.5)
[2019-01-21 06:48] LABS: ANION GAP 15.5 mmol/L (8-16); CARBON DIOXIDE 25.2 mmol/L (21.0-32.0); CREATININE - SERUM 3.1 mg/dL (0.6-1.3); MAGNESIUM - SERUM 2.3 mg/dL (1.8-2.4); PHOSPHOROUS 3.3 mg/dL (2.5-4.9); POTASSIUM - SERUM 3.7 mmol/L (3.5-5.1); VANCOMYCIN - RANDOM 14.9 ug/mL (10.0-20.0)
[2019-01-21 06:49] LABS: CALCIUM 5.9 mg/dL (8.5-10.1)
[2019-01-21 06:59] LABS: MCV 88.9 fL (80.0-100.0); PLATELET COUNT 74 10x3/uL (130-400); WBC 6.8 10x3/uL (4.8-10.8)
[2019-01-21 07:41] LABS: EOSINOPHILS 4 % (0-7); LYMPHOCYTES 4 % (15-50); MONOCYTES 4 % (2-11); NEUTROPHILS 79 % (40-80)
--- NOTE | 2019-01-21 08:31 | NUR ---
DR MÉNDEZ NOTIFIED OF CASERUM-5.9-IONIZED 0.74-ORDER REICEVED AND NOTED-SENT TO PHARMACY FOR CAGLUCONATE 2G IVPB OVER 1.5H-LEVOPHED INCREASED TO 0.5/NIBP 68/48
--- NOTE | 2019-01-21 10:29 | NUR ---
1015-DR STARR AT BEDSIDE AND SPOKE WITH PT FATHER-REGARDING CRITICAL STATUS-LONG PLANNED HOSPITALIZATION-10%SURVIVAL EXPECTATION-APPEARS COMPREHENSION-R RADIAL ROCIO NON FUNCTIONING-WAVE FORM-REMOVED PER PROTOCOL-NOTED ONLY SLIGHT SEROUS FROM INSERTION SITE-NO SANG DRAINAGE-NO HEMATOMA-R THUMB-DIGIT MOTTLED/MAROON R INDEX FINGER TIP AND [id number] MAROON-MOVEMENT TO ALL DIGITS
--- NOTE | 2019-01-21 10:35 | NUR ---
DR MÉNDEZ AT BEDSIDE REQUESTED TO TITRATE OFF HERNANDEZ AND USE LEVOPHED FOR BP CONTROL-NOTED NIBP AT THIS TME 115/104-AND TITRATING HERNANDEZ OFF
--- NOTE | 2019-01-21 11:10 | NUR ---
DR HOBSON AND DEV AT BEDSIDE-SATUS REPORT-SEE RT FOR VENT CHANGES-
--- NOTE | 2019-01-21 11:52 | NUR ---
1050-DR MÉNDEZ AT BEDSIDE-LEVOPHED AT 5MCG AND NEOSYNEPHRINE GTT WEANED OFF DIRECTED 1125-NIBP 70/18-50-[id number] RESUMED AT 0.5MCG/KG/MIN-AND LEVOPHED TITRATING OFF-REPOSITIONED TO SUPINE-VENT CHANGE PER RT
--- NOTE | 2019-01-21 11:54 | NUR ---
NEOSYNEPHRINE AT 0.5MCG-NIBP INCREASED TO 87/75-MEAN80
--- NOTE | 2019-01-21 17:26 | NUR ---
1430-DR AGUILLON IN UNIT REVIEWED PT CURRENT STATUS-ORDER RECIEVED FOR CT ABD WITH [facility]AL CONTRAST ONLY[facility] VIA NGT AND CLAMPED 1500-DR MÉNDEZ AT BEDSIDE -MADE AWARE OF CT ABD ORDER-CT OF CHEST ORDERED WITH NO CONTRAST 1515-PT TRANSPORTED TO CT WITH CURRENT GTTS-TRANSPORT VENT-RT RN'S X2 1615-RETURNED TO -DR MÉNDEZ CALLED UNIT PROCALAMINE AT 50ML/H STARTED
--- NOTE | 2019-01-21 19:00 | NUR ---
REPORT RECEIVED. RECEIVED PATIENT IN BED. SEDATED/INTUBATED. ETT INTACT/SECURE/ PATENT CONNECTED TO MECHANICAL VENTILATION AT ORDERED SETTINGS. NGT INTACT/SECURE/PATENT CONNECTED TO LIT SUCTION WITH GREEN DRAINAGE OBSERVED IN COLLECTION CHAMBER. CX TUBES X 3 INTACT AND SECURE, COLLECTION CHAMBERS BELOW PATIENT CONNECTED TO 20 CM SUCTION WITH SCANT AMOUNT OF BLOODY DRAINAGE OBSERVED IN TUBING. ANDREE DRAIN INTACT TO SUCTION/ COMPRESSED. ALL SURGICAL DRSGS INTACT. PATIENT AWAKENS TO VERBAL STIMULI AND ATTEMPTS TO SPEAK. MONITORS CONNECTED TO PATIENT WITH ALARMS SET. VSS AT PRESENT. DRSG TO RLE FASCIOTOMY SITE SATURATED WITH SEROUS/YELLOW DRAINAGE, CHANGED AT THIS TIME.
[2019-01-22] VITALS (92 sets, daily range): BP systolic 77–123; BP diastolic 48–113
--- NOTE | 2019-01-22 01:00 | NUR ---
DRSG TO RT LE FACIOTOMY CHANGED. CONTINUED TO HAVE COPIOUS AMOUNT OF SEROUS DRAINAGE. VSS
--- NOTE | 2019-01-22 03:01 | NUR ---
REASSESSMENT COMPLETED PER FLOW SHEET WITH NO CHANGES OBSERVED. VSS
--- NOTE | 2019-01-22 05:00 | NUR ---
RESTING WITH EYES CLOSED, ROUSES EASILY. VSS
[2019-01-22 05:55] LABS: HEMATOCRIT 31.7 % (42.0-54.0); HEMOGLOBIN 10.5 g/dL (13.5-17.5); MCH 29.7 pg (26.0-34.0); MCHC 33.1 g/dL (31.0-37.0); MCV 89.5 fL (80.0-100.0); MEAN PLATELET VOLUME 12.4 fL (7.4-10.4); PLATELET COUNT 70 10x3/uL (130-400); RBC 3.54 10x6/uL (4.20-6.10); RDW 16.5 % (11.5-14.5)
[2019-01-22 05:56] LABS: WBC 12.5 10x3/uL (4.8-10.8)
[2019-01-22 06:06] LABS: ANION GAP 14.1 mmol/L (8-16); CARBON DIOXIDE 24.5 mmol/L (21.0-32.0); CREATININE - SERUM 2.4 mg/dL (0.6-1.3); MAGNESIUM - SERUM 2.2 mg/dL (1.8-2.4); POTASSIUM - SERUM 3.6 mmol/L (3.5-5.1); VANCOMYCIN - RANDOM 11.9 ug/mL (10.0-20.0)
[2019-01-22 06:07] LABS: CALCIUM 5.8 mg/dL (8.5-10.1); PHOSPHOROUS 2.2 mg/dL (2.5-4.9)
--- NOTE | 2019-01-22 07:00 | NUR ---
SPOKE WITH DR. MÉNDEZ. REPORTED SERUM CALCIUM RESULTS, NEW ORDERS RECEIVED.
[2019-01-22 07:05] LABS: EOSINOPHILS 5 % (0-7); LYMPHOCYTES 12 % (15-50); MONOCYTES 2 % (2-11); NEUTROPHILS 77 % (40-80); PLATELET ESTIMATE DECREASED
--- NOTE | 2019-01-22 11:05 | NUR ---
0900-FATHER AT BEDSIDE -CONSENTS OBTAINED FOR COMPLETE SURGICAL PROCEDURES-ALREADY DISCUSSED WITH DR AGUILLON-QUESTIONS ANSWERED -PROVIDED FATHER WITH FORMS FOR FINANCIAL AND MEDICAL POA-PROVIDED NUMBER FOR RISK MANAGEMENT FOR ASSISTANCE WITH FORMS-STRESSED VERY EXTENSIVE AND TIME ALLOTED PROCESS- 1000-REPOSITIONED TO R SIDE -PT AWAKENS EASILY AND NODS YES WHEN SERIES OF EVENTS TO CURRENT TIME REVIEWED-NODDED YES WITH VIGOUR WHEN ASKED IF WEAPON BOUGHT AT [employer] SUGGESTED BY FATHER 1015-DR MÉNDEZ AT BEDSIDE AND REVIEWED CURRENT STATUS AND PLAN OF CARE
--- NOTE | 2019-01-22 11:09 | NUR ---
VISUAL SAW GROSS MOVEMENT TO L LEG-KNEE BENT BY PT
--- NOTE | 2019-01-22 14:28 | NUR ---
1230-DR STARR SPOKE WITH SISTER REGARDING STATUS -QUESTIONS ADDRESSED-INFORMED OF PENDING SURGERY 01/23-AWARE FATHER SIGNED CONSENTS 1400-DRG TO R LEG SATURATED AND PAD WRAP [id number] TO FACIOTOMY PINK AND CLEAN-RE WRAPPED WITH ABDX3 AND LARGE KERLIX-COMPLETE AM CARE DONE AND REPOSITIONED TO R SIDE
[2019-01-22 15:14] LABS: ANION GAP 12.7 mmol/L (8-16); CARBON DIOXIDE 24.1 mmol/L (21.0-32.0); CREATININE - SERUM 2.2 mg/dL (0.6-1.3); POTASSIUM - SERUM 3.8 mmol/L (3.5-5.1)
[2019-01-22 15:33] LABS: CALCIUM 5.9 mg/dL (8.5-10.1)
--- NOTE | 2019-01-22 16:32 | NUR ---
FATHER AT BEDSIDE-QUESTIONS ANSWERED-
[2019-01-22 17:26] LABS: MAGNESIUM - SERUM 2.1 mg/dL (1.8-2.4)
[2019-01-22 17:36] LABS: PHOSPHOROUS 2.8 mg/dL (2.5-4.9)
--- NOTE | 2019-01-22 19:00 | NUR ---
PT ASSESSMENT COMPLETED AT THIS TIME, NO CHANGES FROM SHIFT REPORT, VSS
--- NOTE | 2019-01-22 19:45 | NUR ---
DRESSING CHANGED TO RIGHT UPPER LEG. SEREOUS FLUID NOTED TO DRESSINGS
--- NOTE | 2019-01-22 21:00 | NUR ---
PT MORE AWAKE AND RESTLESS OULLING AT RESTRAINTS, FENTANYL DRIP INCREASED TO 400 MCG/HR
--- NOTE | 2019-01-22 22:47 | NUR ---
DRESSINGS TO RIGHT UPPER LEG CHANGED, COPIOUS AMOUNT OF SEROUS FLUID NOTED TO DRESSINGS
--- NOTE | 2019-01-22 22:47 | NUR ---
PT WAKING UP AND PULLING AT RESTRAINTS, BITTING ON ETT, FETANYL DRIP INCREASED TO 450 MCG/HR
--- NOTE | 2019-01-22 23:00 | NUR ---
PT REASSESSMENT COMPLETED AT THIS TIME, NO CHANGES FROM PREVIOUS, WILL CONT TO MONITOR
[2019-01-23] VITALS (88 sets, daily range): BP systolic 74–130; BP diastolic 50–87
--- NOTE | 2019-01-23 01:00 | NUR ---
PT SURGICAL DRESSING INPLCE, AIR NOTED UNDER DRESSING ALONG INCISION LINE, LARAGE AMOUNT OF FLUID NOTED TO LOWER DRESSING, PT WAS TURNED TO BACK, AND GIVEN HCG BATH, CHEST TUBES WHERE CHECKED AND WORKING AT THIS TIME.
[2019-01-23 01:10] LABS: ALBUMIN 1.5 g/dL (3.4-5.0)
--- NOTE | 2019-01-23 03:00 | NUR ---
PT REASSESSMENT COMPLETED AT THIS TIME, SURGICAL DRESSING OVER INCISION APPEARS TO HAVE LESS AIR INSIDE OF IT, INCREASED AMOUNT OF FLUID AT THE LOWER INCISION, WILL CONT TO MONITOR FOR CHANGES
--- NOTE | 2019-01-23 05:00 | NUR ---
NO CHANGES IN PATIENTS COND. VSS AT THIS TIME, WILL CONT. TO MONITOR
[2019-01-23 05:46] LABS: INR 1.3 (0.85-1.17); PROTIME 15.7 SECONDS (11.6-15.0)
--- NOTE | 2019-01-23 05:48 | NUR ---
PT AWAKES PULLING AT RESTRAINTS, PT REORIENTED, BUT PT BITING ON ETT, AND TRYING TO UNCOVERHIMSELF AFTER REPEATED EDUCATION TO RELAX, PT WAS GIVEN VERSED FOR ADDITIONAL SEDATION AT THIS TIME.
[2019-01-23 05:56] LABS: ALBUMIN 1.5 g/dL (3.4-5.0); BILIRUBIN - TOTAL 6.87 mg/dL (0.2-1.3); CARBON DIOXIDE 21.6 mmol/L (21.0-32.0); CREATININE - SERUM 2.2 mg/dL (0.6-1.3); POTASSIUM - SERUM 3.8 mmol/L (3.5-5.1); PROTEIN - SERUM 4.9 g/dL (6.4-8.2); VANCOMYCIN - RANDOM 12.8 ug/mL (10.0-20.0)
[2019-01-23 06:00] LABS: BASOPHILS 0.3 % (0-2); EOSINOPHILS 1.7 % (0-7); HEMATOCRIT 32.3 % (42.0-54.0); HEMOGLOBIN 10.7 g/dL (13.5-17.5); IMMATURE GRANULOCYTES 1.3 % (0-5); LYMPHOCYTES 6.7 % (15-50); MCH 30.1 pg (26.0-34.0); MCHC 33.1 g/dL (31.0-37.0); MCV 90.7 fL (80.0-100.0); MEAN PLATELET VOLUME 12.7 fL (7.4-10.4); MONOCYTES 5.3 % (2-11); NEUTROPHILS 84.7 % (40-80); RBC 3.56 10x6/uL (4.20-6.10); RDW 16.9 % (11.5-14.5); WBC 11.4 10x3/uL (4.8-10.8)
[2019-01-23 06:01] LABS: PLATELET COUNT 109 10x3/uL (130-400)
[2019-01-23 06:27] LABS: ANION GAP 14.2 mmol/L (8-16)
[2019-01-23 06:29] LABS: CALCIUM 6.3 mg/dL (8.5-10.1)
--- NOTE | 2019-01-23 06:39 | NUR ---
DR. AGUILLON CALLED ABOUT CRITICAL CALCIUM AND ADVISED CORRECTED CALCIUM WAS 8.3, NO NEW ORDERS AT THIS TIME
--- NOTE | 2019-01-23 08:10 | NUR ---
Nutrition follow-up: Pt back to surgery today CT x 3 Weaning pressors ProcalAmine PPN started and is infusing @ 50 ml/hr; may need to consider starting TPN to better meet pts increased nutritional needs Wt: 249# Labs reviewed RDN following.
--- NOTE | 2019-01-23 09:06 | NUR ---
0700 PT RECIEVED SEDATED ON VENT ETT 7.5 SECURED AND ON VENT, AC, TV600 FIO2 30% PEEP 5, R IJ CVL DRESSING CDI WITH NS150, PROCALAMINE 50, FENTANYL 9ML OR 450MCG, HERNANDEZ 0.8MCG, NS 20 (WITH FENT PRN OCCUPATIONAL THERAPIST INFUSION), R SUBCLAVIAN CVL DRESSING CDI WITH NS 30 TO KEEP KVO AND RUN WITH ABT TO EQUAL TOTAL NS 200ML/HR. NGT LIS GREEN DRAINAGE, R CT 20CM SUCTION SCANT DRAINAGE NO AIR LEAK, R ABD BULB DRAIN TO SUCTION CANISTER WITH DARK DRAINAGE, L CTX2 20CM SUCTION NO AIR LEAK SCANT DRAINAGE, CRITICORE CASTRO DRAINING LEXI URINE, MIDSTERNAL/MIDLINE ABD DRESSING CDI WITH LAPS VISIBLE, RLE THIGH FASCIOTOMY DRESSING CDI, BLE SKIN TIGHT, SHINY, MOTTLING ON FEET, PULSES DOPPLERED, GENERALIZED SCABS AND BLISTERS
--- NOTE | 2019-01-23 09:19 | NUR ---
PT AWAKENING, MOVING ARMS AND LEGS, ATTEMPTING TO SIT UP, REORIENTED AND ASKED IF HE REMEMBERED COMING TO HOSPITAL AND HE SHOOK HEAD NO, ATTEMPTED TO REORIENT AND CALM AND PT BECAME INCREASINGLY AGITATED AND PULLING ON RESTRAINTS , PRN VERSED PER EMAR
--- NOTE | 2019-01-23 11:16 | NUR ---
CXR PER DR STARR
--- NOTE | 2019-01-23 12:19 | NUR ---
RECIEVED CALL TO PREOP PT FROM SURGERY AND THAT ORDERS WERE PUT IN, ANESTHESIA HERE AND TOLD THAT THERE WERE NO NEW PREOP ORDERS AND HE STATED IT WAS OK THAT PT DIDNT NEED ANY PREOP MEDS
--- NOTE | 2019-01-23 12:44 | NUR ---
pt banging side rails with hands and attempting to sit up, attempted to reorient and keep calm and pt continues while attempting to talk, asked if pt in pain and directed to shake head yes or no and pt continues to attempt to talk and bang hands on rails, paged dr hobbs with orders to defer to dr almonte, paged dr almonte
--- NOTE | 2019-01-23 12:50 | NUR ---
orders for propofol gtt
--- NOTE | 2019-01-23 13:26 | NUR ---
DR AGUILLON REQUESTED PTS FATHER JONNATHAN BE NOTIFIED THAT HE WILL DO PART OF SURGERY TODAY AND PART TOMORROW, CALLED AND LEFT VM TO RETURN CALL
--- NOTE | 2019-01-23 13:37 | NUR ---
RECIEVED CALL FROM JONNATHAN PTS FATHER, VERIFIED SECURITY CODE AND UPDATED THAT DR AGUILLON WOULD DO SURGERY IN 2 PARTS, STATED OKAY AND THAT HE WOULD BE HERE SHORTLY
--- NOTE | 2019-01-23 13:59 | NUR ---
PT TO OR WITH OR TEAM, AWARE OF GTTS, IVS, AND FENTANYL INFUSION
--- NOTE | 2019-01-23 15:51 | NUR ---
1540: 7 LAPS REMOVED FROM PATIENTS ABD CAVITY.
--- NOTE | 2019-01-23 15:56 | NUR ---
1556: PATIENT PACKED WITH 2 BLUE TOWELS UNDER IOBAN
--- NOTE | 2019-01-23 17:15 | NUR ---
1627 PT ARRIVED TO ROOM, PLACED ON VENT BY RT, R IJ CVL AND R TRIALYSIS SITE CDI WITH NS 200ML/HR, HERNANDEZ 0.9MCG, PROCALAMINE 50ML/HR, FENTANYL SYRINGE EMPTY. SYRINGE CHANGED AND DECREASED RATE TO 500MCG, R NGT LIS, GREEN DRAINAGE, ABD DRESSING CHANGED IN OR WITH BLUE TOWELS, R CTX2 TO 20CM SUCTION NO AIR LEAK, L CT WITH AIR LEAK PRESENT, DR AGUILLON NOTIFIED, RLQ ABD DRAIN ATTACHED TO SUCTION WITH BLOODY DRAINAGE, CRITICORE CASTRO DRAINING DARK URINE, FASCIOTOMY DRESSING CHANGED IN OR, PULSES DOPPLERED, ALARMS ON MONITOR SET, DR AGUILLON UPDATED FAMILY, WILL CONTINUE TO MONITOR
--- NOTE | 2019-01-23 18:46 | NUR ---
CBC DRAWN AND TAKEN TO LAB, NOTIFIED OF ARRIVAL
[2019-01-23 18:53] LABS: HEMOGLOBIN 10.3 g/dL (13.5-17.5); MCHC 33.2 g/dL (31.0-37.0); MCV 90.4 fL (80.0-100.0); MEAN PLATELET VOLUME 13.1 fL (7.4-10.4); PLATELET COUNT 116 10x3/uL (130-400); RBC 3.43 10x6/uL (4.20-6.10); RDW 17.1 % (11.5-14.5); WBC 10.6 10x3/uL (4.8-10.8)
--- NOTE | 2019-01-23 19:15 | NUR ---
Received patient sedated in bed with eyes closed, assessment completed per flowsheet. NGT R nare to LIWS with small green/brown drainage, ETT secured. S1/S2 noted NSR on telemetry, rythmic and regular. Vent settings A/C R-18 V-600 30% P-5 with O2 sat 99%, lung sounds clear bilateral upper and mid with diminished lower. Midline sternum/Abdominal incision dressing CDI. L substernal CT x2 to 20 cm suction, R upper abdomen CT x1 with small air leak noted. ANDREE x1 R abdomen to wall suction, brown/serous drainage noted. Villar secured, small cindy urine noted. R upper thigh fasciotomy site, dressing intact. Generalized edema noted all, upper pulses palpable with lower pulses doppler. Bilateral hands/feet mottled/cyantoic, cool. DOBBY LOOM WEAVER in use for pain mgmt, repositioned for comfort. See flowsheet for details, will continue to monitor.
[2019-01-23 19:39] LABS: EOSINOPHILS 3 % (0-7); LYMPHOCYTES 6 % (15-50); MONOCYTES 4 % (2-11); NEUTROPHILS 62 % (40-80); PLATELET ESTIMATE NORMAL
--- NOTE | 2019-01-23 19:40 | NUR ---
Radiology at bedside for Chest/Abdomen x-ray, patient tolerated and will continue to monitor.
--- NOTE | 2019-01-23 23:15 | NUR ---
Reassessment completed per flowsheet, no changes noted from previous assessment. NGT to LIWS with thick green drainage noted, Midline sternum/Abdominal incision dressing CDI. L substernal CT x2 to 20 cm suction with no air leak, R upper abdomen CT to 20cm suction with small air leak noted. R abdomen ANDREE x1 with brown/serous drainage, to wall suction. Upper extremities with small discoloration, bilateral lower feet mottled/cyanotic. Upper pulses palpable wtih cap refill < 3 sec, lower pulses doppler with cap refill > 3 sec. PREDICTIVE MAINTENANCE TECHNICIAN in use for pain mgmt, repositioned for comfort. No further needs at this time, see flowsheet for details and will continue to monitor.
[2019-01-24] VITALS (56 sets, daily range): BP systolic 81–128; BP diastolic 30–92
[2019-01-24 00:16] LABS: ALBUMIN 1.3 g/dL (3.4-5.0)
[2019-01-24 00:18] LABS: CALCIUM 6.1 mg/dL (8.5-10.1)
--- NOTE | 2019-01-24 01:00 | NUR ---
Patient sedated in bed on vent with eyes closed, no s/s of distress at this time. Oral care/suctioning provided, repositioned for comfort. No further needs at this time, will continue to monitor.
--- NOTE | 2019-01-24 01:00 | NUR ---
ORAL CARE PROVIDED. PT LOCALIZED PAIN WHEN CLEANING MOUTH, HE HAS NOT MOVED ANY EXT AT THIS POINT. PERRLA, 3 MM, BRISK REACTION TO LIGHT. WILL CONT WITH POC.
--- NOTE | 2019-01-24 03:05 | NUR ---
Reassessment completed per flowsheet, no changes noted from previous assessment. Sinus Tach with rare PVC noted on telemetry. Vent settings unchanged from previous with O2 sat 100%, lung sounds clear bilateral upper and mid with diminished lower. Midline sternum/Abdomen incision dressing CDI, L substernal CT x2/R upper abdomen CT x1 to 20 cm suction. ANDREE x1 with brown drainage, to wall suction. Upper pulses palpable with extremities cool, lower pulses doppler with cyanotic/mottled toes bilateral. Repositioned for comfort, LIVE OUT NANNY in use for pain mgmt. See flowsheet for details, no further needs and will continue to monitor.
--- NOTE | 2019-01-24 05:00 | NUR ---
Patient sedated in bed with eyes closed, radiology at bedside for AM xray. Tolerated well, no further needs and will continue to monitor.
[2019-01-24 05:39] LABS: ALBUMIN 1.3 g/dL (3.4-5.0); ANION GAP 16.3 mmol/L (8-16); CARBON DIOXIDE 19.7 mmol/L (21.0-32.0); CREATININE - SERUM 2.3 mg/dL (0.6-1.3); VANCOMYCIN - RANDOM 22.8 ug/mL (10.0-20.0)
[2019-01-24 05:41] LABS: BASOPHILS 0.3 % (0-2); EOSINOPHILS 2.5 % (0-7); HEMATOCRIT 34.1 % (42.0-54.0); IMMATURE GRANULOCYTES 1.6 % (0-5); LYMPHOCYTES 7.7 % (15-50); MCH 29.6 pg (26.0-34.0); MCHC 32.3 g/dL (31.0-37.0); MCV 91.7 fL (80.0-100.0); MEAN PLATELET VOLUME 12.3 fL (7.4-10.4); MONOCYTES 3.6 % (2-11); NEUTROPHILS 84.3 % (40-80); PLATELET COUNT 161 10x3/uL (130-400); RBC 3.72 10x6/uL (4.20-6.10); RDW 17.7 % (11.5-14.5); WBC 11.8 10x3/uL (4.8-10.8)
[2019-01-24 05:48] LABS: CALCIUM 6.6 mg/dL (8.5-10.1)
--- NOTE | 2019-01-24 06:10 | NUR ---
Attempted x2 to call Lonny Crowley (Father) for procedure consent, unable to reach. Left requesting return call.
--- NOTE | 2019-01-24 07:00 | NUR ---
RECIEVED PT IN BED, REPORT AT BEDSIDE. COMPLETED ASSESSMENT PER FLOWSHEET, SEE FLOWSHEET FOR INFORMATION. WILL CONT TO MONITOR.
--- NOTE | 2019-01-24 09:00 | NUR ---
VSS. 0900 MEDICATIONS GIVEN. CHANGED BED LINEN AND TURNED PT TO LEFT SIDE WITH WEDGE BEHIND PT FOR STABILITY. WILL CONT TO MONITOR.
--- NOTE | 2019-01-24 10:06 | NUR ---
REPORT AT BEDSIDE. COMPLETED ASSESSMENT PER FLOWSHEET, SEE FLOWSHEET FOR INFO. LOOSENED RESTRAINTS AND MOVED ARM AND WRIST. WILL CONT TO MONITOR.
--- NOTE | 2019-01-24 11:00 | NUR ---
ORAL CARE GIVEN PER POLICY. VSS. WILL CONT TO MONITOR.
--- NOTE | 2019-01-24 13:00 | NUR ---
ORAL CARE GIVEN PER POLICY. PT SUCTIONED VIA ETT. VSS. WILL CONT TO MONITOR.
--- NOTE | 2019-01-24 14:16 | NUR ---
PT JUST TAKEN BACK TO OR ROOM.
--- NOTE | 2019-01-24 15:38 | NUR ---
PT IN OR ROOM, UNABLE TO ASSESS VS.
--- NOTE | 2019-01-24 19:00 | NUR ---
PT ARRIVED IN ICU VIA OR STAFF. PT IS NOT ABLE TO FOLLOW ANY COMMANDS AT THIS TIME. PERRLA, 3 MM, BRISK REACTION TO LIGHT. ETT SIZE 7.5, 24 CM LIP MIDLINE. VENT SETTINGS: A/C RATE OF 20, TIDAL VOLUME 600, FIO2 30%, PEEP 5.0, O2 SAT 98%. SQ EMPHYSEMA NOT ON UPPER L CHEST AND R ARM. STERNAL AND ABD INCISION NOTED, WOUND VAC 125 MMGH SUCTION, BLOODY DRAINAGE. ANDREE 1: LEFT UPPER ABD, BLOODY DRAINAGE. ANDREE 2: LEFT LOWER QUAD, BLOODY DRAINAGE. ANDREE 3: R LOWER QUAD, BLOODY DRAINAGE. L UPPER QUAD, G TUBE, GREEN/BROWN, THICK BILE. L LOWER QUAD J TUBE, NPO AT THIS TIME. R UPPER CHEST TUBE, H20 SEAL, BLOODY DRAINAGE. R&L WRIST RESTRAINTS NOTED, SKIN WNL, +3 PITTING EDEMA, GENERALIZED SCABS/SORES. BS ABSENT X4. CASTRO CATH DRAINING BLOODY DRAINAGE. R THIGH FASCIOTOMY, DRESSING REINFORCED, SEROSANG FLUID NOTED. +3 PITTING EDEMA ON LOWER EXT. MULTIPLE SORES/BLISTERS ON FEET. FEET OR CYANOTIC, FAINT PULSE WITH DOPPLER. ORAL CARE PROVIDED. WILL CONT WITH POC.
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
[2019-01-24 21:12] LABS: HEMATOCRIT 32.2 % (42.0-54.0); HEMOGLOBIN 10.4 g/dL (13.5-17.5); MCH 30.2 pg (26.0-34.0); MCHC 32.3 g/dL (31.0-37.0); MCV 93.6 fL (80.0-100.0); MEAN PLATELET VOLUME 12.7 fL (7.4-10.4); RBC 3.44 10x6/uL (4.20-6.10); RDW 18.4 % (11.5-14.5); WBC 13.6 10x3/uL (4.8-10.8)
[2019-01-24 21:15] LABS: PLATELET COUNT 209 10x3/uL (130-400)
--- NOTE | 2019-01-24 21:16 | NUR ---
DR. AGUILLON AT BEDSIDE. ANDREE 3 CONNECTED TO WALL SUCTION PER VERBAL ORDER. NEW ORDERS RECIEVED.
[2019-01-24 21:28] LABS: INR 1.43 (0.85-1.17); PROTIME 16.9 SECONDS (11.6-15.0)
[2019-01-24 21:30] LABS: EOSINOPHILS 1 % (0-7); LYMPHOCYTES 6 % (15-50); MONOCYTES 5 % (2-11); NEUTROPHILS 54 % (40-80)
[2019-01-24 21:31] LABS: PLATELET ESTIMATE NORMAL
--- NOTE | 2019-01-24 22:16 | NUR ---
DR. AGUILLON MADE AWARE OF LAB VALUES. 50 MG ALBUMIN AND 1L NS FLUID BOLUS ORDERED. WILL INITIATE.
--- NOTE | 2019-01-24 23:00 | NUR ---
REASSESSMENT COMPLETE. PT IS UNABLE TO FOLLOW ANY COMMANDS AT THIS TIME. VSS. WILL CONT TO MONITOR CLOSELY. ORAL CARE PROVIDED. REPOSITIONED FOR COMFORT. SEE FLOWSHEET FOR FURTHER DETAILS.
[2019-01-25] VITALS (54 sets, daily range): BP systolic 90–138; BP diastolic 64–92
--- NOTE | 2019-01-25 01:00 | NUR ---
ORAL CARE PROVIDED. REPOSITIONED FOR COMFORT. NO CHANGES IN PT CONDITION. WILL CONT CLOSE MONITORING.
--- NOTE | 2019-01-25 03:00 | NUR ---
REASSESSMENT COMPLETE. NO CHANGES IN PT CONDITION. WILL CONT CLOSE MONITORING IN ICU. SEE FLOWSHEET FOR FURTHER DETAILS.
--- NOTE | 2019-01-25 05:00 | NUR ---
COMPLETE LINEN CHANGE PROVIDED. COPIOUS AMOUNTS OF SEROSANG FLUID NOTED ON PADS.
[2019-01-25 05:30] LABS: BASOPHILS 0.4 % (0-2); EOSINOPHILS 0.2 % (0-7); HEMATOCRIT 27.7 % (42.0-54.0); HEMOGLOBIN 8.9 g/dL (13.5-17.5); IMMATURE GRANULOCYTES 2.5 % (0-5); LYMPHOCYTES 4.5 % (15-50); MCH 29.7 pg (26.0-34.0); MCHC 32.1 g/dL (31.0-37.0); MCV 92.3 fL (80.0-100.0); MEAN PLATELET VOLUME 11.8 fL (7.4-10.4); MONOCYTES 4.9 % (2-11); NEUTROPHILS 87.5 % (40-80); RDW 18.3 % (11.5-14.5)
[2019-01-25 05:33] LABS: PLATELET COUNT 252 10x3/uL (130-400)
[2019-01-25 05:35] LABS: BILIRUBIN - TOTAL 8.22 mg/dL (0.2-1.3); CREATININE - SERUM 2.6 mg/dL (0.6-1.3); PHOSPHOROUS 3.9 mg/dL (2.5-4.9); PROTEIN - SERUM 4.5 g/dL (6.4-8.2); VANCOMYCIN - RANDOM 23.8 ug/mL (10.0-20.0)
[2019-01-25 05:40] LABS: ANION GAP 20.4 mmol/L (8-16); CARBON DIOXIDE 14.3 mmol/L (21.0-32.0); POTASSIUM - SERUM 4.7 mmol/L (3.5-5.1)
[2019-01-25 05:41] LABS: CALCIUM 6.1 mg/dL (8.5-10.1)
--- NOTE | 2019-01-25 06:42 | NUR ---
PT WILL RESPOND TO COMMANDS, HE OPENS HIS EYES AND FAINTLY SQUEEZES HANDS. HE IS BREATHING 8-10X'S OVER VENT. STARTING PROPOFOL.
--- NOTE | 2019-01-25 06:45 | NUR ---
R CVL AND R TRIALYSIS CATH DRESSING CHANGE PROVIDED. DEVELOPMENT PLANNER USED.
--- NOTE | 2019-01-25 07:00 | NUR ---
RECEIVED BEDSIDE REPORT AT BEDSIDE. ASSESSMENT COMPLETED PER FLOWSHEET, SEE FLOWSHEET FOR INFO. VSS. WILL CONT TO MONITOR.
--- NOTE | 2019-01-25 09:00 | NUR ---
VSS. 0900 MEDICATIONS GIVEN. WILL CONT TO MONITOR.
--- NOTE | 2019-01-25 09:23 | NUR ---
Nutrition follow-up: Received order from Dr. Everett for J-tube feeding. Chart reviewed Recommend starting Osmolite 1.0 jayy @ 20 ml/hr x 24 hours. Flush tube with 20 ml H2O Q hour. If pt tolerating and BS return, will slowly increase TF to goal rate of 100 ml/hr. Thank you for the consult. RDN following.
--- NOTE | 2019-01-25 11:00 | NUR ---
CHG BEDBATH GIVEN, COMPLETE LINEN CHANGE. REINFORCED DRESSING TO RIGHT THIGH. WILL CONT TO MONITOR.
--- NOTE | 2019-01-25 13:00 | NUR ---
VSS. BRIDGED HEELS ON PILLOWS, REINFORCED WITH ABD PADS FOR SEROSANGUINEOUS DRAINAGE. WILL CONT TO MONITOR.
--- NOTE | 2019-01-25 15:00 | NUR ---
TURNED PT TO LEFT SIDE. REINFORCED DRESSING TO RIGHT THIGH. DRESSING WAS COMPLETELY SATURATED WITH SEROSANGENOUS DRAINAGE. WILL CONT TO MONITOR.
--- NOTE | 2019-01-25 17:27 | NUR ---
VSS. PARTIAL LINEN CHANGE. WILL CONT TO MONITOR.
--- NOTE | 2019-01-25 19:00 | NUR ---
REPORT RECEIVED BY DAY SHIFT RN AT BEDSIDE, SHIFT ASSESSMENT COMPLETE SEE FLOW SHEETS FOR FURTHER, PT SEDATED ON VENT, ORAL CARE COMPLETED, RT IJ CVL AND TRIALYSIS DRSG C/D/I, MIDSTERNAL TO ABDOMEN SURGICAL INCISION WITH WOUND VAC IN PLACE, ANDREE DRAINS x3 COMPRESSED, RIGHT CT x1 TO 20CM SUCTION, G-TUBE AND J-TUBE TO GRAVITY DRAINAGE, CASTRO CATH PATENT WITH VOID, RIGHT THIGH DRSG INTACT, BLE TOES AND SOULS OF FEET DISCOLORED AND MOTTLED, BILAT UPPER WRIST RESTAINTS IN PLACE AND REPOSITIONED, ICU MONITORS ON, VSS, WILL CONTINUE TO MONITOR
--- NOTE | 2019-01-25 23:00 | NUR ---
REASSESSMENT COMPLETE SEE FLOW SHEET FOR FURTHER, PT SEDATED NOT FOLLOWING COMMANDS AT THIS TIME, REPOSITIONED IN BED, VSS, WILL MONITOR CLOSELY
[2019-01-26] VITALS (24 sets, daily range): BP systolic 104–148; BP diastolic 73–94; Ht 185.4 cm; Wt 109.2 kg
[2019-01-26 05:25] LABS: HEMATOCRIT 22.7 % (42.0-54.0); MCH 29.5 pg (26.0-34.0); PLATELET COUNT 248 10x3/uL (130-400); RBC 2.54 10x6/uL (4.20-6.10); RDW 18.2 % (11.5-14.5)
[2019-01-26 05:39] LABS: APTT 32.5 SECONDS (22.8-39.4); INR 1.36 (0.85-1.17); PROTIME 16.2 SECONDS (11.6-15.0)
[2019-01-26 05:43] LABS: HEMOGLOBIN 7.5 g/dL (13.5-17.5); MCV 89.4 fL (80.0-100.0)
[2019-01-26 05:57] LABS: ALBUMIN 2.2 g/dL (3.4-5.0); BILIRUBIN - TOTAL 7.36 mg/dL (0.2-1.3); MAGNESIUM - SERUM 2.3 mg/dL (1.8-2.4); PROTEIN - SERUM 5.2 g/dL (6.4-8.2); VANCOMYCIN - RANDOM 28.5 ug/mL (10.0-20.0)
--- NOTE | 2019-01-26 06:00 | NUR ---
CHG BATH WITH COMPLETE LINEN CHANGE COMPLETED, DRSGS CHANGED AND DATED
[2019-01-26 06:01] LABS: PHOSPHOROUS 2.8 mg/dL (2.5-4.9); POTASSIUM - SERUM 3.1 mmol/L (3.5-5.1)
[2019-01-26 06:02] LABS: ANION GAP 19.1 mmol/L (8-16); CALCIUM 6.5 mg/dL (8.5-10.1)
--- NOTE | 2019-01-26 06:11 | NUR ---
DR.BREVING MAS R/T AM LABS
--- NOTE | 2019-01-26 06:14 | NUR ---
CALLED ICU BACK, UPDATE GIVEN INCLUDING LABS, ORDERS RECEIVED TO TRANSFUSE x2 PRBC AND x1 FFP, NO FURTHER AT THIS TIME
[2019-01-26 07:00] LABS: HYPOCHROMASIA 1+; LYMPHOCYTES 3 % (15-50); MONOCYTES 1 % (2-11); NEUTROPHILS 87 % (40-80); PLATELET ESTIMATE NORMAL
--- NOTE | 2019-01-26 07:00 | NUR ---
0700 COMPLETE ASSESS. PERFORMED. PT INTUBATED, ON AC PER VENT. ETT 7.5, 24 AT LIP. VENT SETTINGS AC20/600/5 AND 30% FIO2. V/S REMAIN STABLE. ORAL CARE PROVIDED AND PT REPOSITIONED FOR COMFORT. ASSESS COMPLETED PER FLOWSHEET. SEE FOR DETAILS.
--- NOTE | 2019-01-26 09:00 | NUR ---
0900 ORAL CARE, REPOSITIONING AND AM MEDS ADMINISTERED WITHOUT COMPLICATIONS. VS STABLE WILL CONT TO MONITOR.
--- NOTE | 2019-01-26 12:10 | NUR ---
1100 UNIT PRBC STARTED ORDERED. TRANSFUSION REACTION S/S REVIEWED WITH PT. PT INTUBATED AND SEDATED. 1115 PT TOLERATING PRBC'S WELL. NO S/S OF REACTION. WILL CONT. TO MONITOR.
--- NOTE | 2019-01-26 13:12 | NUR ---
1300 BLOOD STILL IN PROCESS. TOLERATING WELL WITHOUT S/S OF REACTION. WILL MONITOR.
--- NOTE | 2019-01-26 14:55 | NUR ---
1455 PRBC UNIT #2 STARTED. PT TOLERATING WELL. NO S/S OF REACTION. V/S/S. WILL CONT TO MONITOR.
--- NOTE | 2019-01-26 15:10 | NUR ---
1510 PT TOLERATING PRBC TRANSFUSION WELL. V/S/S. NO S/S OF REACTION NOTED. NO CHANGE IN OTHER ASSESSMENT. WILL CONTINUE TO MONITOR.
--- NOTE | 2019-01-26 17:12 | NUR ---
1600 DR. CHAPPELL HERE. FI02 DECREASED TO 25% 1700 DR. QUIROS HERE. NEW ORDERS NOTED. PT TOLERATING VENT CHANGES WELL.SAT 99%
--- NOTE | 2019-01-26 17:47 | NUR ---
TRANSFUSION COMPLETE, TOLERATED WELL. FAMILY AT BEDSIDE.
--- NOTE | 2019-01-26 18:26 | NUR ---
DR AGUILLON AT BEDSIDE GIVEN UPDATE.
--- NOTE | 2019-01-26 19:15 | NUR ---
Received patient sedated in bed with eyes closed, assessment completed per flowsheet. ETT 7.5 @ 24cm secured. S1/S2 noted NSR on telemetry, regular/distant. Vent settings AC R-20 V-600 25% P-5 with O2 sat 98%, lung sounds clear bilateral upper with diminished mid and lower. Midline sternum/Abdominal incision with wound vac, dressing intact. R upper chest/R upper abdomen ANDREE x1 with dressing CDI, L chest JPx1/L abdomen JPx1 with dressing CDI. Villar secured, pink drainage noted. Upper pulses weak palpable with lower pulses weak palpable, Bilateral feet with toes mottled/heels discolored. R thigh Fasciotomy site with dressing intact, serous colored drainage on dressing. G-tube/J-tube to gravity drain, G-tube with purulent green/brown drainage noted. Oral care/Repositioned for comfort, no further needs. See flowsheet for details, all VSS and will continue to monitor.
--- NOTE | 2019-01-26 21:00 | NUR ---
Patient sedated in bed with eyes closed, no visitors at this time. Oral care/suctioning provided, repositioned for comfort. No further needs and will continue to monitor.
--- NOTE | 2019-01-26 23:00 | NUR ---
Reassessment completed per flowsheet, no changes noted from previous assessment. R CT x1 to 20 cm suction, no air leak noted with scant bloody drainage. Midline sternum/abdominal incision wound vac dressing secured, scant bloody drainage. ANDREE R abdomen with brown drainage, ANDREE L chest/L abdomen with small bloody drainage noted. All pulses weak palpable with skin cool/dry, discoloration bilateral feet with mottled toes. Oral care/suctioning provided, repositioned for comfort. See flowsheet for details, all VSS and will continue to monitor.
[2019-01-27] VITALS (24 sets, daily range): BP systolic 100–129; BP diastolic 72–92
--- NOTE | 2019-01-27 02:48 | NUR ---
Reassessment completed per flowsheet, no changes noted from previous assessment. S1/S2 noted NSR on telemetry, regular/distant. Vent settings unchanged from previous with O2 sat 98%, lung sounds clear bilateral upper with diminished mid and lower. R abdomen dressing changed, brown/serous fluid noted on dressing. R thigh fasciotomy site dressing changed, serous fluid noted on dressing. All pulses weak palpable with skin cool/dry, bilateral feet mottled. Oral care/suctioning provided, repositioned for comfort. See flowsheet for details, all VSS and will continue to monitor.
[2019-01-27 05:52] LABS: BASOPHILS 0.3 % (0-2); EOSINOPHILS 0.6 % (0-7); IMMATURE GRANULOCYTES 3.7 % (0-5); LYMPHOCYTES 3.9 % (15-50); MCH 29.9 pg (26.0-34.0); MCHC 34.6 g/dL (31.0-37.0); MEAN PLATELET VOLUME 11.5 fL (7.4-10.4); MONOCYTES 4.6 % (2-11); NEUTROPHILS 86.9 % (40-80); PLATELET COUNT 254 10x3/uL (130-400); RDW 17.8 % (11.5-14.5); WBC 12.9 10x3/uL (4.8-10.8)
[2019-01-27 05:55] LABS: HEMATOCRIT 29.2 % (42.0-54.0); HEMOGLOBIN 10.1 g/dL (13.5-17.5); MCV 86.4 fL (80.0-100.0); RBC 3.38 10x6/uL (4.20-6.10)
[2019-01-27 06:05] LABS: ALBUMIN 2.6 g/dL (3.4-5.0); BILIRUBIN - TOTAL 10.07 mg/dL (0.2-1.3); CALCIUM 7.3 mg/dL (8.5-10.1); CREATININE - SERUM 3.2 mg/dL (0.6-1.3); POTASSIUM - SERUM 3.3 mmol/L (3.5-5.1); PROTEIN - SERUM 6.1 g/dL (6.4-8.2); VANCOMYCIN - RANDOM 22.4 ug/mL (10.0-20.0)
[2019-01-27 06:06] LABS: ANION GAP 19.1 mmol/L (8-16); CARBON DIOXIDE 20.2 mmol/L (21.0-32.0)
--- NOTE | 2019-01-27 06:27 | NUR ---
DR. PIRES NOTIFIED OF AM H/H. NO ORDERS.
[2019-01-27 08:56] LABS: MAGNESIUM - SERUM 2.5 mg/dL (1.8-2.4); PHOSPHOROUS 3.5 mg/dL (2.5-4.9)
--- NOTE | 2019-01-27 09:08 | NUR ---
Nutrition follow-up: Pt remains intubated, sedated TPN @ 50 ml/hr Labs reviewed; Na, Mg high TPN adjusted RDN following.
--- NOTE | 2019-01-27 15:34 | NUR ---
WOUND VAC DSNG CHANGED. 125MMHG SUCTION. WND BED CLEAN. SEDATION OFF X 1HR FOR SEDATION VAC. PT WITH EYE CONTACT. FOLLOWS COMMAND INCONSISTENTLY WITH SQUEEZE HAND COMMAND. DRAINAGE TO RT LEG ON TO LINENS. LINENS CHANGED AND CLEAN DSNG APPLIED.
--- NOTE | 2019-01-27 17:44 | NUR ---
BELONGINGS GIVEN TO PTS DAD. WITNESS IS CHACHA WANG. BLACK WATCH GLASSES, YELLOW CROSS AND METALIC CROSS. YELLOW CHAIN AND METAL COLORED CHAIN AND 4 ONE DOLLAR BILLS. 2 OTHER VISITORS HERE WITH PTS DAD.
--- NOTE | 2019-01-27 19:00 | NUR ---
REPORT RECEIVED. RECEIVED PATIENT SEDATED/INTUBATED. ETT INTACT/SECURE/PATENT CONNECTED TO [facility] VENT AT ORDERED SETTINGS. HOB UP 30 DEGREES. MONITORS CONNECTED TO PATIENT WITH ALARMS SET. VSS. SHIFT ASSESSMENT COMPLETED PER FLOW SHEET.
--- NOTE | 2019-01-27 23:00 | NUR ---
CHG BATH GIVEN. DRSG TO RT THIGH SATURATED WITH SEROUS/YELLOW DRAINAGE/ CHANGED PER ORDER. VSS
[2019-01-28] VITALS (25 sets, daily range): BP systolic 104–137; BP diastolic 63–98
[2019-01-28 04:51] LABS: HEMATOCRIT 30.1 % (42.0-54.0); HEMOGLOBIN 10.5 g/dL (13.5-17.5); MCH 30.1 pg (26.0-34.0); MCHC 34.9 g/dL (31.0-37.0); MCV 86.2 fL (80.0-100.0); MEAN PLATELET VOLUME 11.6 fL (7.4-10.4); PLATELET COUNT 285 10x3/uL (130-400); RBC 3.49 10x6/uL (4.20-6.10); RDW 18.6 % (11.5-14.5); WBC 12.5 10x3/uL (4.8-10.8)
[2019-01-28 05:04] LABS: ALBUMIN 2.8 g/dL (3.4-5.0); ANION GAP 21.7 mmol/L (8-16); BILIRUBIN - TOTAL 10.9 mg/dL (0.2-1.3); CALCIUM 7.9 mg/dL (8.5-10.1); CARBON DIOXIDE 21.2 mmol/L (21.0-32.0); CREATININE - SERUM 3.6 mg/dL (0.6-1.3); MAGNESIUM - SERUM 2.6 mg/dL (1.8-2.4); POTASSIUM - SERUM 3.9 mmol/L (3.5-5.1); PROTEIN - SERUM 5.8 g/dL (6.4-8.2); VANCOMYCIN - RANDOM 17.4 ug/mL (10.0-20.0)
[2019-01-28 05:08] LABS: PHOSPHOROUS 4.4 mg/dL (2.5-4.9)
[2019-01-28 05:51] LABS: LYMPHOCYTES 8 % (15-50); MONOCYTES 4 % (2-11); NEUTROPHILS 77 % (40-80)
[2019-01-28 05:52] LABS: PLATELET ESTIMATE NORMAL
--- NOTE | 2019-01-28 07:33 | NUR ---
VSS, NO PRESSORS. WND VAC 125 MMHG WITH OUT PROBLEMS. RLE WND DRAINS YELLOW FLUIDS AND REQUIRING FREQ DSNG CHANGES TO KEEP PT LINENS CLEAN AND DRY.
--- NOTE | 2019-01-28 09:08 | NUR ---
NUTRITION F/U CHART/LABS REVIEWED. NA+ REMOVED FROM TPN YESTERDAY. STARTED TRICKLE J TUBE FEEDS. WILL MONITOR LABS AND ADJUST TPN NEEDED. RD FOLLOWING
--- NOTE | 2019-01-28 13:02 | NUR ---
RLE DSNG SATURATED WITH SEROSANGEOUS DRAINAGE. DSNG CHANGE AND LINENS CHANGED. DR AGUILLON HERE ON ROUNDS. L CHEST ANDREE DRAIN PULLED OUT BY DR AGUILLON, ANDREE NO.1. VASOLINE GAUZE APPLIED. DR CHAPPELL AT BS. DR CHAPPELL REPORTED TO DR AGUILLON THAT THE PT IS NOW A MED CODE ONLY.
--- NOTE | 2019-01-28 15:54 | NUR ---
BP 158/103. CALLED AND REPORTED TO DR VELOZ. REC'D ORDER.
--- NOTE | 2019-01-28 16:08 | NUR ---
BICARB GTT DCD AND 2 AMPS SO BICARB GIVEN ORDERED.
--- NOTE | 2019-01-28 19:00 | NUR ---
PT REPORT RECEIVED FROM DAY SHIFT NURSE. SHIFT ASSESSMENT COMPLETED. VSS. WILL CONTINUE TO MONITOR
--- NOTE | 2019-01-28 21:00 | NUR ---
PT RESTING IN BED SEDATED. VSS. WILL CONTINUE TO MONITOR
--- NOTE | 2019-01-28 23:00 | NUR ---
PT REASSESSMENT COMPLETED. VSS. NO SIGNS OF DISTRESS NOTED. WILL CONTINUE TO MONITOR. ORAL CARE PROVIDED TO PT.
[2019-01-29] VITALS (24 sets, daily range): BP systolic 92–127; BP diastolic 73–91
--- NOTE | 2019-01-29 01:00 | NUR ---
PT RESTING IN BED. VSS. NO VISIBLE SIGNS OF DISTRESS NOTED. WILL CONTINUE TO MONITOR
--- NOTE | 2019-01-29 03:00 | NUR ---
PT REASSESSMENT COMPLETED. NO SIGNS OF DISTRESS. VSS. PT RESTING IN BED. WILL CONTINUE TO MONITOR
--- NOTE | 2019-01-29 03:27 | NUR ---
TUBE FEEDING BAG CHANGED OUT. PT TOLERATED WELL. WILL CONTINUE TO MONITOR
[2019-01-29 04:43] LABS: BASOPHILS 0.7 % (0-2); HEMATOCRIT 29.3 % (42.0-54.0); HEMOGLOBIN 10.2 g/dL (13.5-17.5); IMMATURE GRANULOCYTES 2.5 % (0-5); LYMPHOCYTES 4.9 % (15-50); MCH 29.7 pg (26.0-34.0); MCHC 34.8 g/dL (31.0-37.0); MCV 85.2 fL (80.0-100.0); MEAN PLATELET VOLUME 11.5 fL (7.4-10.4); MONOCYTES 7.2 % (2-11); NEUTROPHILS 83.7 % (40-80); PLATELET COUNT 338 10x3/uL (130-400); RBC 3.44 10x6/uL (4.20-6.10); RDW 18.3 % (11.5-14.5); WBC 12.8 10x3/uL (4.8-10.8)
--- NOTE | 2019-01-29 05:00 | NUR ---
PT RESTING IN BED. FOLLOWS SIMPLE COMMANDS. VSS. WILL CONTINUE TO MONITOR
[2019-01-29 05:27] LABS: ALBUMIN 2.9 g/dL (3.4-5.0); ANION GAP 20.1 mmol/L (8-16); BILIRUBIN - TOTAL 10.57 mg/dL (0.2-1.3); CALCIUM 7.9 mg/dL (8.5-10.1); CREATININE - SERUM 3.9 mg/dL (0.6-1.3); MAGNESIUM - SERUM 2.6 mg/dL (1.8-2.4); PHOSPHOROUS 5.1 mg/dL (2.5-4.9); POTASSIUM - SERUM 4.1 mmol/L (3.5-5.1)
--- NOTE | 2019-01-29 05:46 | NUR ---
PT ANDREE DRESSING CHANGED. TOLERATED WELL. CHG BATH GIVEN WELL. VSS. WILL CONTINUE TO MONITOR
--- NOTE | 2019-01-29 10:18 | NUR ---
PT TURNED AND MOUTH CARE DONE, VSS AFEBRILE.
--- NOTE | 2019-01-29 10:52 | NUR ---
NUTRITION F/U CHART/LABS REVIEWED. NOTE J TUBE FEEDS AT 20 CC/HR. TPN ADJUSTED AND RENEWED. IF PT CONTINUES TO TOLERATE J TUBE FEEDS, MAY NEED TO DECREASE TPN RATE. RD FOLLOWING
--- NOTE | 2019-01-29 16:32 | NUR ---
DR AGUILLON ADJSTED R CT. CLEAN DRY SNNG APPLIED.
--- NOTE | 2019-01-29 17:31 | NUR ---
PTS DAD HERE. REC'D CONCENT FOR CT REPLACING BY DR AGUILLON FOR TOMORROW.
--- NOTE | 2019-01-29 19:00 | NUR ---
PT REPORT RECEIVED FROM DAY SHIFT NURSE. VSS. SHIFT ASSESSMENT COMPLETED. WILL CONTINUE TO MONITOR
--- NOTE | 2019-01-29 19:55 | NUR ---
PT TRANSPORTED TO ROOM 2230. PT TOLERATED WELL. MET IN ROOM BY CHARI.
--- NOTE | 2019-01-29 21:00 | NUR ---
PT RESTING IN BED. ORAL CARE PROVIDED. NO SIGNS OF DISTRESS NOTED. WILL CONTINUE TO MONITOR
--- NOTE | 2019-01-29 23:00 | NUR ---
PT REASSESSMENT COMPLETED. TOLERATED WELL. VSS. WILL CONTINUE TO MONITOR
[2019-01-30] VITALS (24 sets, daily range): BP systolic 91–137; BP diastolic 74–94
--- NOTE | 2019-01-30 01:00 | NUR ---
RESPIRATORY IN ROOM WITH PT. PROVIDED ORAL CARE. PT TOLERATED WELL. WILL CONTINUE TO MONITOR
--- NOTE | 2019-01-30 03:00 | NUR ---
PT REASSESSMENT COMPLETED. VSS. NO SIGNS OF DISTRESS NOTED. WILL CONITNUE TO MONITOR
--- NOTE | 2019-01-30 05:00 | NUR ---
PT RESTING IN BED. NO VISIBLE SIGNS OF DISTRESS NOTED. WILL CONTINUE TO MONITOR
[2019-01-30 05:02] LABS: HEMATOCRIT 29.9 % (42.0-54.0); HEMOGLOBIN 10.4 g/dL (13.5-17.5); MCH 30.1 pg (26.0-34.0); MCHC 34.8 g/dL (31.0-37.0); MCV 86.7 fL (80.0-100.0); MEAN PLATELET VOLUME 12.3 fL (7.4-10.4); RBC 3.45 10x6/uL (4.20-6.10); RDW 19.2 % (11.5-14.5); WBC 13.8 10x3/uL (4.8-10.8)
[2019-01-30 05:29] LABS: ALBUMIN 2.8 g/dL (3.4-5.0); BILIRUBIN - TOTAL 10.06 mg/dL (0.2-1.3); CALCIUM 8.5 mg/dL (8.5-10.1); CARBON DIOXIDE 22.2 mmol/L (21.0-32.0); CREATININE - SERUM 4.2 mg/dL (0.6-1.3); MAGNESIUM - SERUM 2.5 mg/dL (1.8-2.4); PHOSPHOROUS 5.7 mg/dL (2.5-4.9); POTASSIUM - SERUM 4.2 mmol/L (3.5-5.1); PROTEIN - SERUM 6.7 g/dL (6.4-8.2); VANCOMYCIN - RANDOM 18.8 ug/mL (10.0-20.0)
[2019-01-30 05:42] LABS: PLATELET COUNT 457 10x3/uL (130-400)
--- NOTE | 2019-01-30 08:20 | NUR ---
FAMILY AT BEDSIDE GIVEN UPDATE.
--- NOTE | 2019-01-30 09:20 | NUR ---
DR QUIROS AT BEDSIDE GIVEN UPDATE. NO NEW ORDERS AT THIS TIME. WILL CONTINUE TO MONITOR
--- NOTE | 2019-01-30 09:48 | NUR ---
Nutrition follow-up: Intubated, sedated TPN contiinues @ 50 ml/hr Osmolite infusing @ 30 ml/hr via J-tube; nurse reports pt not tolerating TF Labs reviewed; MOSF per physicians WT: 245# RDN following.
[2019-01-30 09:59] LABS: ANISOCYTOSIS 1+; EOSINOPHILS 1 % (0-7); HYPOCHROMASIA OCC; LYMPHOCYTES 9 % (15-50); MONOCYTES 9 % (2-11); NEUTROPHILS 73 % (40-80); PLATELET ESTIMATE INCREASED
--- NOTE | 2019-01-30 10:10 | NUR ---
DR CHAPPELL AT BEDSIDE GIVEN UPDATE. NEW ORDERS RECEIVED.
--- NOTE | 2019-01-30 11:00 | NUR ---
REASSESSMENT COMPLETE PER FLOW SHEET. VSS. NO NEW CHANGES PT RESTING COMFORTABLY WILL CONTINUE TO MONITOR
--- NOTE | 2019-01-30 13:10 | NUR ---
MIDSTERNAL WOUND VAC CHANGED. NO NEW FINDINGS.
--- NOTE | 2019-01-30 15:00 | NUR ---
REASSESSMENT COMPLETE PER FLOW SHEET. VSS. NO NEW CHANGES. PT RESTING COMFORTABLY WILL CONTINUE TO MONITOR
--- NOTE | 2019-01-30 19:00 | NUR ---
SHIFT ASSESSMENT COMPLETE. PT IS SEDATED ON VENT, RR INCREASED TO 35-40 X'S PER MIN. INCREASED PROPOFOL TO 40 MCG/KG/MIN. RT AT BEDSIDE AND WILL INFORM DR. CHAPPELL OF FINDINGS. ETT SIZE 7.5, 24 CM, MIDLINE. S1S2 AUDIBLE, HR 113, SINUS TACH SHOWING ON MONITOR. CLEAR LUNG SOUNDS HEARD BILAT THROUGHOUT ALL LOBES. R IJ TRIALYSIS CATH, DRESSING CDI. R SUBCLAVIAN CVL INFUSING PROPOFOL AT 40 MCG/KG/MIN, TPN @ 50 ML/HR, AND NS @ KVO+ABX. RT CHEST TUBE DRESSING CDI. L G TUBE, BROWN DRAINAGE. DR. AGUILLON AT BEDSIDE. VERBAL ORDER TO INCREASE J TUBE FEEDINGS TO 40 ML/HR. LLQ ANDREE DRAIN COMPRESSED, SEROUS DRAINAGE NOTED. RLQ ANDREE DRAIN COMPRESSED, SEROSANG FLUID NOTED. CASTRO CATH INTACT DRAINING BLOODY URINE. R THIGH FASCIOTOMY DRESSING CDI. B/L FEET SCABS/BLISTERS SEEN, TOES ARE NECROTIC. CAP REFILL 6 SEC. RADIAL AND PEDAL PULSES PALP. NO FURTHER NEEDS AT THIS TIME. WILL CONT WITH POC.
--- NOTE | 2019-01-30 21:00 | NUR ---
REPOSITIONED FOR COMFORT. ORAL CARE PROVIDED. VSS. WILL CONT WITH POC.
--- NOTE | 2019-01-30 23:00 | NUR ---
REASSESSMENT COMPLETE. NO CHANGES FROM PREVIOUS ASSESSMENT. SEE FLOWSHEET FOR FURTHER DETIALS. IV TUBING CHANGED, DATED, SWAB CAPPED AND LABELED. REPOSITIONED FOR COMFORT. ORAL CARE PROVIDED. WILL CONT WITH POC.
--- NOTE | 2019-01-30 23:45 | NUR ---
TUBE FEEDING BAG CHANGED.
[2019-01-31] VITALS (25 sets, daily range): BP systolic 64–112; BP diastolic 42–78
--- NOTE | 2019-01-31 01:00 | NUR ---
CHG BATH PROVIDED. COMPLETE LINEN CHANGE PROVIDED. REPACKED R FASCIOTOMY AND WRAPPED WITH KERLIX AND ABD PADS PER ORDERS. ANDREE DRAINS COMPRESSED AND DRESSINGS CHANGED. J-TUBE AND G-TUBE DRESSINGS CHANGED. PT TOLERATED WELL.
--- NOTE | 2019-01-31 02:30 | NUR ---
LEAK DETECTED IN WOUND VAC. MIDSTERNAL WOUND VAC CHANGED. WOUND BED IN PINK. NO FURTHER CHANGES.
--- NOTE | 2019-01-31 03:00 | NUR ---
REASSESSMENT COMPLETE PER FLOWSHEET. VSS. WILL CONT WITH POC.
--- NOTE | 2019-01-31 04:00 | NUR ---
R IJ TRIALYSIS CATH AND R SUBCLAVIAN CVL DRESSING CHANGED VIA HEALTH CARE AIDE. DATED AND LABELED.
--- NOTE | 2019-01-31 05:00 | NUR ---
REPOSITIONED FOR COMFORT. VSS. ORAL CARE PROVIDED. NO CHANGES IN PT CONDITION. WILL CONT WITH POC.
[2019-01-31 05:30] LABS: BASOPHILS 1.1 % (0-2); EOSINOPHILS 1.7 % (0-7); HEMATOCRIT 28.8 % (42.0-54.0); HEMOGLOBIN 9.9 g/dL (13.5-17.5); IMMATURE GRANULOCYTES 4.1 % (0-5); LYMPHOCYTES 5.5 % (15-50); MCH 29.6 pg (26.0-34.0); MCHC 34.4 g/dL (31.0-37.0); MCV 86.2 fL (80.0-100.0); MEAN PLATELET VOLUME 11.9 fL (7.4-10.4); NEUTROPHILS 79.6 % (40-80); PLATELET COUNT 481 10x3/uL (130-400); RBC 3.34 10x6/uL (4.20-6.10); RDW 18.7 % (11.5-14.5); WBC 15.8 10x3/uL (4.8-10.8)
[2019-01-31 05:37] LABS: ALBUMIN 2.8 g/dL (3.4-5.0); ANION GAP 20.9 mmol/L (8-16); BILIRUBIN - TOTAL 10.08 mg/dL (0.2-1.3); CALCIUM 8.5 mg/dL (8.5-10.1); CARBON DIOXIDE 21.5 mmol/L (21.0-32.0); CREATININE - SERUM 4.9 mg/dL (0.6-1.3); MAGNESIUM - SERUM 2.3 mg/dL (1.8-2.4); PHOSPHOROUS 5.8 mg/dL (2.5-4.9); POTASSIUM - SERUM 4.4 mmol/L (3.5-5.1); VANCOMYCIN - RANDOM 14.9 ug/mL (10.0-20.0)
--- NOTE | 2019-01-31 10:53 | NUR ---
DR CHAPPELL AT BEDSIDE AT THIS TIME.
--- NOTE | 2019-01-31 10:56 | NUR ---
VENT SETTINGS CHANGED BY DR CHAPPELL TO A/C RATE OF 15, 500, 25% PEEP 5
--- NOTE | 2019-01-31 17:51 | NUR ---
FATHER AT BEDSIDE. AWAITING TO SPEAK TO DR AGUILLON. ALL QUESTIONS ANSWERED.
--- NOTE | 2019-01-31 19:05 | NUR ---
SHIFT ASSESSMENT COMPLETE PER FLOWSHEET. COMPLETE LINEN CHANGE PROVIDED. VSS. PT TOLERATED WELL. DR. AGUILLON ON UNIT ROUNDING. NO FURTHER FINDINGS AT THIS TIME. WILL CONT WITH POC.
--- NOTE | 2019-01-31 19:25 | NUR ---
PROPOFOL PAUSED PER DR. AGUILLON FOR SEDATION VACATION.
--- NOTE | 2019-01-31 19:30 | NUR ---
DR. AGUILLON AT BEDSIDE. D/C ANDREE #2. RECTAL TUBE IN PLACE. ORDERS FOR SEDATION VACATION IN AM TO ASSESS NEURO STATUS. WILL CONT WITH POC.
--- NOTE | 2019-01-31 21:30 | NUR ---
PAGED DR. CHAPPELL.
--- NOTE | 2019-01-31 21:44 | NUR ---
DR. CHAPPELL UPDATED ON PT'S CONDITION. BP 69/43. 500 CC BOLUS NS ORDERED. IF PRESSURE DOESN'T COME UP START LOW DOSE OF LEVOPHED. WILL INITIATE NOW.
--- NOTE | 2019-01-31 23:00 | NUR ---
REASSESSMENT COMPLETE. REPOSITIONED FOR COMFORT. BP REMAINS ON THE LOWER END OF NORMAL. WILL CONT TO MONITOR CLOSELY FOR CHANGES. SEE FLOWSHEET FOR FURTHER DETIALS. ORAL CARE PROVIDED. REPOSITIONED FOR COMFORT. WILL CONT WITH POC.
--- NOTE | 2019-01-31 23:45 | NUR ---
LEVOPHED INITIATED AT 5 MCG/KG/MIN. SEE IV GTT FLOWSHEET.
[2019-02-01] VITALS (86 sets, daily range): BP systolic 65–118; BP diastolic 23–77
--- NOTE | 2019-02-01 00:30 | NUR ---
PER SEDATION VACATION PROTOCOL, PROPOFOL RESTARTED BACK AT HALF, 30 MCG/KG/MIN. WILL CONT TO MONITOR CLOSELY.
--- NOTE | 2019-02-01 01:00 | NUR ---
REPOSITIONED FOR COMFORT. ORAL CARE PROVIDED. NO CHANGES IN PT CONDITION.
--- NOTE | 2019-02-01 03:10 | NUR ---
REASSESSMENT COMPLETE. PT IS BREATHING 40-45 BREATHS/MIN. PRN VERSED ADMIN. REPOSITIONED FOR COMFORT. ORAL CARE PROVIDED. NO FURTHER NEEDS. WILL CONT CLOSE MONITORING IN ICU.
--- NOTE | 2019-02-01 05:00 | NUR ---
CASTRO CARE PROVIDED. ORAL CARE PROVIDED. CVL AND IJ DRESSING CHANGED VIA ORTHOTICS TECHNICIAN. ANDREE, J AND G TUBE DRESSINGS CHANGED. VSS. REPOSITIONED FOR COMFORT. WILL CONT WITH POC.
--- NOTE | 2019-02-01 06:00 | NUR ---
SEDATION VACATION INITIATED.
[2019-02-01 06:16] LABS: MAGNESIUM - SERUM 2.3 mg/dL (1.8-2.4); VANCOMYCIN - RANDOM 25.4 ug/mL (10.0-20.0)
[2019-02-01 06:18] LABS: PHOSPHOROUS 7.4 mg/dL (2.5-4.9)
[2019-02-01 07:04] LABS: ANION GAP 29.5 mmol/L (8-16); CALCIUM 8.4 mg/dL (8.5-10.1); CARBON DIOXIDE 17.4 mmol/L (21.0-32.0)
[2019-02-01 07:13] LABS: CREATININE - SERUM 6.3 mg/dL (0.6-1.3)
[2019-02-01 07:14] LABS: POTASSIUM - SERUM 6.9 mmol/L (3.5-5.1)
--- NOTE | 2019-02-01 07:30 | NUR ---
REPORT RECEIVED. ASSESSMENT COMPLETE PER FLOW SHEET. VSS. REFER FOR FINDINGS. ORAL ENDOTRACH CARE ADM. WILL CONTINUE TO MONITOR
[2019-02-01 08:32] LABS: HEMATOCRIT 29.2 % (42.0-54.0); HEMOGLOBIN 9.7 g/dL (13.5-17.5); MCH 29.3 pg (26.0-34.0); MCHC 33.2 g/dL (31.0-37.0); MEAN PLATELET VOLUME 11.6 fL (7.4-10.4); RBC 3.31 10x6/uL (4.20-6.10); RDW 18.2 % (11.5-14.5); WBC 13.4 10x3/uL (4.8-10.8)
[2019-02-01 08:33] LABS: MCV 88.2 fL (80.0-100.0); PLATELET COUNT 588 10x3/uL (130-400)
--- NOTE | 2019-02-01 09:00 | NUR ---
DR CHAPPELL AT BEDSIDE GIVEN UPDATE. NO NEW CHANGES WILL CONTINUE TO MONITOR
--- NOTE | 2019-02-01 09:42 | NUR ---
Nutrition follow-up: TPN discontinued Dr. Everett wantanson J-tube feedings increased per nursing Pt currently tolerating Osmolite 1.0 jayy @ 40 ml/hr Spoke with Renal Lisa MOY: renal status. Waiting on family conference to determine if dialysis to start. Labs reviewed; K, PO4 elevated RDN will change TF formula to Nepro 3/4 strength due to elevated K, PO4. This will decrease kcal/ml from 1.8 to 1.2 and be better tolerated via J-tube. Unable to infuse Nepro FS into J-tube due to concentrated formula. Will order Nepro 3/4 strength @ 50 ml/hr with increase to goal rate of 85 ml/hr. Flush with 100 ml H2O q [address] RDN following.
[2019-02-01 09:48] LABS: BASOPHILS 1 % (0-2); LYMPHOCYTES 11 % (15-50); MONOCYTES 13 % (2-11); NEUTROPHILS 55 % (40-80); PLATELET ESTIMATE INCREASED
[2019-02-01 09:49] LABS: ANISOCYTOSIS OCC; HYPOCHROMASIA OCC; ROULEAUX OCC
--- NOTE | 2019-02-01 11:17 | NUR ---
REASSESSMENT COMPLETE PER FLOW SHEET. VSS. NO NEW CHANGES WILL CONTINUE TO MONITOR
--- NOTE | 2019-02-01 13:15 | NUR ---
FAMILY CALLED GIVEN DARSHANATE.
--- NOTE | 2019-02-01 15:30 | NUR ---
REASSESSMENT COMPLETE PER FLOW SHEET. VSS. NO NEW CHANGES PT RESTING COMFORTABLY WILL CONTINUE TO MONITOR
--- NOTE | 2019-02-01 19:00 | NUR ---
RT, RN, DIGITAL STRATEGY MANAGER AND FAMILY AT BEDSIDE. FAMILY GAVE INSTRUCTION THAT THEY ARE READY FOR THE TERMINAL EXTUBATION. PROCEEDING WITH FAMILY WISHES NOW.
--- NOTE | 2019-02-01 19:10 | NUR ---
PT IS ASYSTOLE ON MONITOR. DR. PAL MAS. FAMILY AT BEDSIDE. SUPPORTIVE CARE PROVIDED.
--- NOTE | 2019-02-01 19:10 | NUR ---
PAGED DR. AGUILLON.
--- NOTE | 2019-02-01 19:43 | NUR ---
SPOKE WITH OPTICAL DISPENSER, PRINTING ADMISSION LABS AND MEDICAL RECORD NOW.
--- NOTE | 2019-02-01 20:05 | NUR ---
JIG AND FIXTURE REPAIRER ARRIVED ON UNIT.
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
--- NOTE | 2019-02-01 20:10 | NUR ---
CLINICAL MOLECULAR GENETICIST PRONOUNCED AT 2009.
--- NOTE | 2019-02-01 20:33 | NUR ---
NOTIFIED [facility].
--- NOTE | 2019-02-01 21:50 | NUR ---
[facility] ARRIVED ON UNIT. ASSISTED WITH TRANSFER. DENTURES, RECORD OF AND FACESHEET GIVEN TO LIP READING TEACHER.
--- NOTE | 2019-02-03 09:04 | MORECARE ---
CASE MANAGEMENT DISCHARGE SUMMARY PATIENT: KENNY JONES UNIT: [id number] ADM DATE: 01/16/19 AGE: 53 : 67 SEX: M ROOM/BED: D.2306 AUTHOR: GEORGE BIRD PHYSICIAN: REFERRING PHYSICIAN: ROSANNE AGUILLON MD DATE OF SERVICE: 02/03/19 Discharge Plan Patient Name: KENNY JONES Facility: [facility]:[place] : 1965 Planned Disposition: [facility] Bucker Acute Care Facility Anticipated Discharge Date: Discharge Date: 02/01/2019 Expected LOS: Initial Reviewer: [email or web address] Initial Review Date: 01/17/2019 Generated: 02/03/19 10:04 am Comments DCP- Discharge Planning Updated by [email or web address]: Sonia Wyatt on 02/01/19 7:[address] CM met with physicians, family and administration regarding discharge planning. Dr. Aguillon discussed with family a review of all major systems and what is going on with patient. He answered questions that family had in regards to long-term prognosis. Family is trying to come to terms with a decision on terminal extubation. Dr. Aguillon stated that he wanted the entire family to agree before any decision are made. Family wants to make sure patient doesn't struggle and is comfortable. Dr. Aguillon and Krishna explained process to family. Physicians are giving family time to be with patient before making decision. CM will continue to follow and assist as needed with discharge planning / needs. DCP- Discharge Planning Updated by [email or web address]: Sonia Wyatt on 01/20/19 10:[address] Patient Name: KENNY JONES Admission Status: ER Accout number: [id number] Admission Date: 01-16-2019 : 1965 Admission Diagnosis:UNSP OPN WND UNSP FRONT WALL OF THRX W PENET THOR CAV, Attending: ROSANNE AGUILLON Current LOS: 4 Anticipated DC Date: Planned Disposition: Half-Way Acute Care Facility Primary Insurance: MEDICARE A & B Discharge Planning Comments: PATIENT LIVED ALONE WITH A HISTORY OF PSYCHIATRIC ISSUES. PLAN AT THIS TIME WILL BE LTACH PLACEMENT ONCE STABILIZED THEN MOST LIKELY PSYCH PLACEMENT. CM WILL CONTINUE TO FOLLOW AND ASSIST NEEDED WITH DISCHARGE PLANNING / NEEDS Turbine Operator: Sonia Wyatt DCP- Discharge Planning Updated by [email or web address]: Sonia Wyatt on 01/18/19 3:[address] CM attempted to visit with patient regarding discharge planning/ needs. Patient currently on vent no family available. [place]. Patient will most likely need LTACH if he survives. CM will continue to follow and assist as needed with discharge planning / needs DCP- Discharge Planning Updated by [email or web address]: Sonia Wyatt on 01/18/19 2:[address] LATE ENTRY 01/17/19 CM attempted to visit with patient regarding discharge planning/ needs. Patient currently on vent no family available. CM will continue to follow and assist as needed with discharge planning / needs DCPIA - Discharge Planning Initial Assessment Updated by [email or web address]: Sonia Wyatt on 01/20/19 11:31 am * Is the patient Alert and Oriented? No * PCP NICK QUINONEZ * Pharmacy [facility] * Preadmission Environment Home Alone * ADLs Independent * List name and contact numbers for known caregivers / representatives who currently or will assist patient after discharge: BRIAN JONES - BROTHER - [phone] JONNATHAN [place] - FATHER - [phone] [facility] [phone] [facility] [phone] * Verbal permission to speak to the caregivers and representatives has been obtained from the patient. N/A * Additional services required to return to the preadmission environment? No * Can the patient safely return to the preadmission environment? Yes * Has this patient been hospitalized within the prior 30 days at any hospital? No Last DP export: 02/01/19 7:09 p Patient Name: KENNY JONES Page 14926 at 0904 All edits/amendments must be made on the electronic document DICTATION DATE: 02/03/19903 ADMISSIONS CLERK: SPENCER 02/03/19903 RPT#: [id number] DC DATE:02/01/19 STATUS: DIS IN [facility] [address] [place] [address] END OF REPORT
--- NOTE | 2019-02-03 14:19 | NUR ---
Per CMS protocol, restraint report logged into data base.
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
== END 2019-02-01 22:14 | DRG 957 ==
LOC: D.SDCHOLD → D.OPS 12:05 → EDBD 12:05 → D.ER 12:05 → EDSTATUS 12:26 → D.ICU 12:59 → D.SDCHOLD 12:59 → D.ICU 16:34
PROVIDERS: Emergency Medicine; Family Medicine; Internal Medicine Nephrology; Internal Medicine Pulmonary Disease; Surgery; ADMIT Surgery; ATTEND Surgery
PROC: 0DT84ZZ Resection of Small Intestine, Percutaneous Endoscopic Approach (ICD-10-PCS; 2019-01-16)
PROC: 0DTK4ZZ Resection of Ascending Colon, Percutaneous Endoscopic Approach (ICD-10-PCS; 2019-01-16)
PROC: 07BP4ZZ Excision of Spleen, Percutaneous Endoscopic Approach (ICD-10-PCS; 2019-01-16)
PROC: 04HY32Z Insertion of Monitoring Device into Lower Artery, Percutaneous Approach (ICD-10-PCS; 2019-01-16)
PROC: 06HY33Z Insertion of Infusion Device into Lower Vein, Percutaneous Approach (ICD-10-PCS; 2019-01-16)
PROC: 0BH17EZ Insertion of Endotracheal Airway into Trachea, Via Natural or Artificial Opening (ICD-10-PCS; 2019-01-16)
PROC: 5A1955Z Respiratory Ventilation, Greater than 96 Consecutive Hours (ICD-10-PCS; 2019-01-16)
PROC: 04HY32Z Insertion of Monitoring Device into Lower Artery, Percutaneous Approach (ICD-10-PCS; 2019-01-16)
PROC: 06Q Lower Veins, Repair (ICD-10-PCS; principal; 2019-01-16 13:20)
PROC: 0DTF4ZZ Resection of Right Large Intestine, Percutaneous Endoscopic Approach (ICD-10-PCS; 2019-01-18)
PROC: 0T768DZ Dilation of Right Ureter with Intraluminal Device, Via Natural or Artificial Opening Endoscopic (ICD-10-PCS; 2019-01-24)
PROC: 0TQ Urinary System, Repair (ICD-10-PCS; 2019-01-24)
DX: S21.30 Unspecified open wound of front wall of thorax with penetration into thoracic cavity (principal); J96.01 Acute respiratory failure with hypoxia; S36.59 Other injury of colon; A41.50 Gram-negative sepsis, unspecified; R65.21 Severe sepsis with septic shock; N17.0 Acute kidney failure with tubular necrosis; S36.60XA Unspecified injury of rectum, initial encounter; D62 Acute posthemorrhagic anemia; E87.2 Acidosis; I50.30 Unspecified diastolic (congestive) heart failure; D68.9 Coagulation defect, unspecified; N39.0 Urinary tract infection, site not specified; J95.812 Postprocedural air leak; E11.52 Type 2 diabetes mellitus with diabetic peripheral angiopathy with gangrene; I96 Gangrene, not elsewhere classified; R57.1 Hypovolemic shock; Y92.239 Unspecified place in hospital as the place of occurrence of the external cause; Y93.9 Activity, unspecified; Y92.9 Unspecified place or not applicable; Y99.9 Unspecified external cause status; E11.9 Type 2 diabetes mellitus without complications; I11.0 Hypertensive heart disease with heart failure; F31.9 Bipolar disorder, unspecified; F41.8 Other specified anxiety disorders; F41.0 Panic disorder [episodic paroxysmal anxiety]; B19.20 Unspecified viral hepatitis C without hepatic coma; F19.10 Other psychoactive substance abuse, uncomplicated; E87.6 Hypokalemia; E83.39 Other disorders of phosphorus metabolism; R53.81 Other malaise